=== PATIENT | female | born 1965 | race Caucasian/White ===

== ENCOUNTER 2024-01-06 16:59 | Emergency (ER) | payer BC, SELFPAY ==
[2024-01-06 17:02] VITALS: BP 143/61; PULSE 71; RESP 18; TEMP 36.8; O2SAT 97; BMI 32.0
--- NOTE | 2024-01-06 17:14 | EDS_ITS ---
HPI <PURNIMA Munson - Last Filed: 01/06/24 17:41> History of Present Illness Chief Complaint: Laceration Narrative Narrative: Patient is a 58-year-old female with no significant history presents to the emerged part with a laceration to the left knee. Patient that she was in taking a shower when a glass soap dish broke striking her top of the left knee. This does need sutures however patient has full range of motion, she has no significant pain. Tetanus vaccination is unknown. Denies any other injury. PFSH <PURNIMA Munson - Last Filed: 01/06/24 17:41> [facility] Home Medications ?Medication ?Instructions ?Recorded ?Last Taken ?Type penicillin V potassium 250 mg 500 mg (2 x 250 mg) PO 4X/DAY #40 06/21/17 Unknown Rx tablet tabs Allergy/AdvReac Type Severity Reaction Status Date / Time fluoxetine (From Prozac) Allergy Abd Verified 01/06/24 17:00 cramps/diarrhea Social History Smoking Status: Current every day smoker tobacco type: cigarettes ROS <PURNIMA Munson - Last Filed: 01/06/24 17:41> ROS ED ROS Narrative Constitutional: Negative for fever, chills, weight loss, weakness Eyes: Negative for vision loss, vision change, double vision ENT: Negative for any sore throat, ear pain, congestion Cardiovascular: Negative for any chest pain, tightness, palpitations Respiratory: Negative for any cough, sputum production, hemoptysis, dyspnea, dyspnea on exertion, orthopnea Gastrointestinal: Negative for any abdominal pain, nausea, vomiting, diarrhea, constipation, blood in stool, blood in vomit : Negative for any urinary frequency, dysuria, retention, blood in urine Muscle skeletal: Negative for any neck pain, back pain Neurological: Negative for any headache, syncope, dizziness Skin: Negative for any rashes, itching, abrasions. Positive laceration left knee Psychiatric: Negative for any depression, anxiety, stress, suicidal ideation, homicidal ideation Hematologic: Negative for any excessive bruising, easy bleeding EXAM <PURNIMA Munson - Last Filed: 01/06/24 17:41> Physical Exam Narrative Exam Narrative: Vital signs reviewed. HEET: Head normocephalic atraumatic, TMs clear bilaterally. Posterior pharynx is clear, moist mucous membranes. Nares clear bilaterally. Neck: Supple with no lymphadenopathy or tenderness. No signs of meningismus. Cardiac: Regular rate and rhythm no murmurs gallops or rubs, equal peripheral pulses bilaterally. Respiratory: Lungs clear to auscultation bilaterally. No chest tenderness. Abdomen: Soft, nontender, nondistended. No abdominal bruit or pulsatile masses. No hepatosplenomegaly Extremities: No peripheral edema, no signs of gross trauma or deformity. Active full range of motion of all extremities. Patient has a 2 cm vertical laceration just above the patella. Patient has full range of motion, intact extensor mechanism. No foreign body noted. This is full-thickness however there is no tendon involvement. No muscle fascia involvement. Neuro: Cranial nerves II through XII intact, no focal neurological deficits. Skin: Clean dry and intact with no rash, purpura, petechiae, vesicles or pustules. Backs/flank: No CVA tenderness, no midline spinal tenderness, no deformity. Psych: Normal mood and affect. No SI, HI or acute psychosis. Const Vital Signs: 01/06/24 17:02 01/06/24 17:47 Temperature 98.2 F 97.6 F L Temperature Source Temporal Pulse Rate 71 78 Respiratory Rate 18 16 Blood Pressure 143/61 H Blood Pressure Mean 88 Pulse Ox 97 99 Oxygen Delivery Method Room Air <Dr. Irving Sampson MD - Last Filed: 01/06/24 20:22> Physical Exam Const Vital Signs: 01/06/24 17:02 01/06/24 17:47 Temperature 98.2 F 97.6 F L Temperature Source Temporal Pulse Rate 71 78 Respiratory Rate 18 16 Blood Pressure 143/61 H Blood Pressure Mean 88 Pulse Ox 97 99 Oxygen Delivery Method Room Air [facility] <PURNIMA Munson - Last Filed: 01/06/24 17:41> [facility] Treatment and Re-Evaluation :: Differential diagnosis includes however is not limited to: Simple laceration, tendon involvement, foreign body Patient appears to be in no obvious distress vital signs are stable. Patient presents the emergency department with a laceration to left knee. This is r oughly 2 cm in length. This will be irrigated, this will need closure with sutures. Tetanus vaccination was updated. I was able to anesthetize the area with lidocaine with epinephrine. Patient wound irrigated with 100 cc normal saline. Also placed 5 simple sutures of 4-0 Ethilon. Patient tolerated well, edges approximate nicely, sterile gloves, sterile drapes were used. She will have the removed in 10 days. She will follow-up outpatient. She was given return precautions. All questions answered stable for discharge <Dr. Irving Sampson MD - Last Filed: 01/06/24 20:22> [facility] MDM Narrative Medical decision making narrative: I have personally performed a face to face assessment of the patient and have reviewed the FAWAD Note. I performed a substantive portion of the visit including all aspects of the following. My campos findings include: History is remarkable for laceration above the left patella. This occurred in the shower when the soap dish broke. She denies paresthesia, anesthesia medics. Exam is gaping 1 to 1.5 cm laceration above the patella. The quadricep mechanism intact. No neurovasc compromise. Medical Decision Making patient will require sutures. Sutures placed. Nurse practitioner. Other additions or changes: [None] Discharge Plan Triage Chief Complaint: Laceration ED Midlevel Provider: Karl Ortega ED Provider: Irving Sampson Dx/Rx/DC Orders Clinical Impression: Laceration of leg Instructions: ED Laceration Extremity Prescriptions: No Action penicillin V potassium 250 MG tablet 500 mg PO 4X/DAY Qty: 40 0RF Primary Care Provider: Rico Lemus Referrals: NOT,DEFINED [Non-Staff] - Activity Restrictions/Additional Instructions: Please follow-up outpatient. Have the sutures removed in 10 days Print Language: Marshallese Disposition Disposition: Home, Self Care Discharge Date/Time: 01/06/24 17:48
[2024-01-06] MEDS: Lidocaine 1% /Epi 1:100 (20ml) 20 ML Vial 3 ML INFILT (17:28)
[2024-01-06] MEDS: Diphth,Pertuss(Acell),Tet Vac 0.5 ML Vial IM (17:29)
[2024-01-06 17:47] VITALS: PULSE 78; RESP 16; TEMP 36.4; O2SAT 99
== END 2024-01-06 17:48 | disposition home or self-care (01) ==
PROVIDERS: Emergency Provider Emergency Medicine; PCP Family Medicine; Visit Provider Emergency Medicine
DX: S81.012A Laceration without foreign body, left knee, initial encounter (principal); W25.XXXA Contact with sharp glass, initial encounter; Y93.E1 Activity, personal bathing and showering; Y99.8 Other external cause status; F17.210 Nicotine dependence, cigarettes, uncomplicated; Z23 Encounter for immunization
CPT/HCPCS: 12001; 90471; 90715; 99283

== ENCOUNTER 2024-04-16 12:22 | Inpatient (IN) | payer BC, SELFPAY ==
[2024-04-16] VITALS (11 sets, daily range): BP systolic 127–187; BP diastolic 75–124; PULSE 81–90; RESP 14–28; TEMP 36.6–38.2; O2SAT 90–97; BMI 31.2; BMI 30.7
--- NOTE | 2024-04-16 12:33 | CT_ITS ---
STUDY: CT ABDOMEN AND PELVIS WITH CONTRAST REASON FOR EXAM: Female, 58 years old. RUQ pain RADIATION DOSAGE (If Supplied By Facility): CTDIvol = ( 18.01 ) mGy, DLP = ( 1596.91 ) mGycm TECHNIQUE: IV 100mL Isovue-370 was administered. Transaxial images were obtained from the dome of the diaphragm to the symphysis pubis. Multiplanar coronal and sagittal images were reformatted. The protocol utilizes one or more of the following dose reduction techniques: automated exposure control, adjustment of mA and/or kV according to patient size,and/or use of iterative reconstruction technique. COMPARISON: No relevant prior comparison study available FINDINGS: The visualized lung bases are essentially unremarkable. The visualized portions of the heart are within normal limits. Coronary calcifications. Multiple low-density lesions in the liver likely representing cysts, the largest measures about 1.5 cm in the right lobe. Normal gallbladder and extrahepatic biliary system. Normal spleen. Normal pancreas. Large 4 cm mass in the right adrenal gland. Smaller mass in the left adrenal gland measuring about 2 cm. Left renal parapelvic cyst. Another smaller cyst in the left kidney measuring about 9 mm. No evidence of hydronephrosis. Normal visualized stomach. 2.5 cm fatty lesion in the second stage of the duodenum could represent polyp or lipoma. No evidence of small bowel obstruction. Fecal retention. No evidence of acute diverticulitis. The appendix is visualized and appears normal. There is diffuse atherosclerotic calcification of the abdominal aorta, without a demonstrated aneurysm. No retroperitoneal adenopathy. Normal urinary bladder. No pelvic mass. Normal abdominal wall. Mild degenerative changes of the spine. CT/Abdomen/Pelvis W IV Cont ONLY IMPRESSION: 1. Bilateral adrenal masses markedly larger on the right side for which correlation with nonemergent MRI with contrast or CT scan with adrenal protocol. 2. Endoluminal fatty polypoid lesion in the descending duodenum without evidence of obstruction at this time. GI consult is recommended. 3. Liver cysts. 4. Otherwise no focal acute inflammatory process. Electronically Signed: Corky Johnson MD at 13:46 EDT ,
--- NOTE | 2024-04-16 12:33 | CT_ITS ---
STUDY: CTA CHEST REASON FOR EXAM: Female, 58 years old. Hurts to take deep breath on right RADIATION DOSAGE (If Supplied By Facility): CTDIvol = ( 18.01 ) mGy, DLP = ( 1596.91 ) mGycm TECHNIQUE: The examination was performed with the intravenous administration of IV 100mL Isovue-370. Post-processing of the angiographic images was performed, with multiplanar reformation and 3D reconstruction. The protocol utilizes one or more of the following dose reduction techniques: automated exposure control, adjustment of mA and/or kV according to patient size,and/or use of iterative reconstruction technique. COMPARISON: No relevant prior comparison study available FINDINGS: Normal enhancement of the main pulmonary artery and right and left pulmonary arteries. Normal enhancement of the bilateral peripheral pulmonary arteries. There is no demonstrated pulmonary embolism. Severe motion artifacts in the upper chest obscuring the thoracic inlet and aortic arch. There is no demonstrated aortic dissection. Normal heart and pericardium. There are calcifications of the coronary arteries. Normal mediastinum. Normal hilar regions. Normal visualized trachea and bronchi. The lungs are well expanded. There are no pulmonary infiltrates. Severe motion artifacts during evaluation of the upper chest. There are no pleural effusions. Normal chest wall structures. No demonstrated acute osseous changes. The visualized portions of the upper abdomen demonstrate small liver lesions likely representing small cysts. CT/CTA Chest W/WO Contrast IMPRESSION: 1. No evidence of pulmonary embolism. 2. No focal acute pulmonary infiltrate or pleural effusions. Electronically Signed: Corky Johnson MD at 13:36 EDT ,
--- NOTE | 2024-04-16 12:33 | EKG12_ITS ---
Test Reason : LEFT SIDE PAIN Blood Pressure : / mmHG Vent. Rate : 087 BPM Atrial Rate : 087 BPM P-R Int : 154 ms QRS Dur : 092 ms QT Int : 366 ms P-R-T Axes : 019 072 044 degrees QTc Int : 440 ms Normal sinus rhythm Normal ECG Confirmed by BRITTNI CANTRELL, [facility] ([id number]), commercial production editor EDMUND VALVERDE ([id number]) on 04/17/2024 1:21:28 PM Referred By: NIKITA Confirmed By:SINAI ELKINS MD
--- NOTE | 2024-04-16 12:37 | EX.ED.DYSGE1 ---
HPI History of Present Illness Chief Complaint: Abd Pain Narrative Narrative: Patient is a 58-year-old female past medical history hypertension, hypercholesteremia who presents to the emergency department with chief complaint of right side pain and hurting when she attempts take a deep breath. Patient states that this morning she woke up not feeling well and noted that her pain progressively worsened while she was at work today prompting her to come here for further evaluation management. Patient denies any history of blood clots in her legs or lungs denies any recent travel history. Patient states that she does smoke daily and occasional marijuana use denies any other drug use and denies alcohol use. Patient denies any recent sick contacts. [facility] Medical History (Updated 04/16/24 @ 13:22 by Radha Howard) Depression Hypertension Home Medications ?Medication ?Instructions ?Recorded ?Last Taken ?Type atorvastatin 80 mg tablet 80 mg PO QHS cholesterol 04/16/24 Unknown History bupropion HCl 150 mg tablet,12 hr 150 mg PO BID 04/16/24 Unknown History sustained-release lisinopril 10 1 tab PO DAILY 04/16/24 Unknown History mg-hydrochlorothiazide 12.5 mg tablet sertraline 100 mg tablet 100 mg PO DAILY 04/16/24 Unknown History Allergy/AdvReac Type Severity Reaction Status Date / Time fluoxetine (From Resource [employer]) Allergy Abd Verified 01/06/24 17:00 cramps/diarrhea Social History Smoking Status: Current every day smoker tobacco type: cigarettes ROS ROS ED ROS Narrative Constitutional: Complains of a chills, diffuse bodyaches, denies fevers, lightheadedness, dizziness Eyes: Denies change in vision double vision blurry vision Cardiovascular: Complains of some right-sided chest discomfort near her rib region denies palpitations Respiratory: Complains of some shortness of breath Abdomen: Complains of abdominal pain in the right upper region as noted above rates this a 6 out of 10. : Denies any pain phonation, hematuria compel area Neurological: Denies numbness, weakness, tingling Musculoskeletal: Denies any back pain Skin: Denies rashes, lesions EXAM Physical Exam Narrative Exam Narrative: General: Patient lying in bed rest comfortably did not appear to be acute distress Head: Atraumatic, normocephalic Eyes: PERRL bilateral, EOMI bilateral, no conjunctival injection noted Neck: Soft, supple, trachea midline Cardiovascular: Regular rate and rhythm no murmurs gallops rubs noted Respiratory: Clear to auscultation bilaterally no rales rhonchi wheeze noted Abdomen: Soft, nondistended, n tender to palpation of the right upper quadrant no rebound or guarding noted, bowel sounds present x 4 Extremities: +5/5 strength noted in the bilateral upper and lower extremities, no pedal edema noted exam, radial pulses +2/4 in the bilateral upper extremities, no pedal edema noted exam Neurological: Patient following commands knew that she was at [facility] years 2023 Skin: Warm, dry, intact Const Vital Signs: 04/16/24 12:23 04/16/24 14:23 04/16/24 15:54 Temperature 98 F 100.8 F H Temperature Source Temporal Oral Pulse Rate 86 90 86 Respiratory Rate 14 23 H 28 H Blood Pressure 187/93 H 165/124 H 159/76 H Blood Pressure Mean 124 137 103 Pulse Ox 97 91 90 Oxygen Delivery Method Room Air Room Air Room Air Oxygen Flow Rate (L/min) 04/16/24 16:35 04/16/24 17:00 04/16/24 17:35 Temperature 100.8 F H 100.3 F H Temperature Source Oral Oral Pulse Rate 87 86 86 Respiratory Rate 25 H 28 H 26 H Blood Pressure 166/75 H 161/82 H 161/82 H Blood Pressure Mean 105 108 108 Pulse Ox 90 95 97 Oxygen Delivery Method Room Air Nasal Cannula Nasal Cannula Oxygen Flow Rate (L/min) 2 2 MDM MDM MDM Narrative Medical decision making narrative: Patient is a 58-year-old female who presents to the emergency department the chief complaint of pain with deep inspiration, right upper quadrant pain and diffuse bodyaches. Patient will have a workup performed here on the differential diagnose includes but not limited to cholecystitis, COVID, upper respiratory affection second viral etiology, ACS, pneumothorax, PE. Once workup is obtained reviewed she will be reevaluated. Patient CBC was reviewed was significant for leukocytosis of 13,000, hemoglobin was 14.9, plate count normal at 236. Patient sodium was noted be 131, potassium normal at 3.5, creatinine was 0.53. Patient's BNP elevated 134, troponin normal at 5. Patient's EKG was reviewed and independently interpreted by myself which showed sinus rhythm with a rate of 87 bpm. Patient's urinalysis did not reveal any evidence of infection. Patient CT chest did not show any evidence of PE no focal acute pulmonary infiltrate or pleural effusions. Patient's CT abdomen pelvis showed bilateral adrenal masses markedly large on the right side for which correlation and nonemergent MRI or CT contrast of the adrenal gland protocol. Endo luminal fatty polypoid lesion of the descending duodenum without evidence of obstruction recommended GI consultation. Liver cyst noted. Did discuss results with the patient and gave her hard copy of this. Patient was ambulated here in the emergency department and her oxygen dropped to 85% she is not on oxygen normally she felt short of breath. Patient is febrile as well she was given a gram of Tylenol. At this point time do believe the patient will warrant admission we will discuss case with hospitalist. Did discuss case with hospitalist Dr. Bell who states that he will accept patient for admission. He came down evaluated the patient at bedside reviewed the CT scan and discussed the case with Dr. Howard and they are concerned that there may be an ulcer with clot versus perforation they were requesting radiology review read this CAT scan. Given there is a concern for this possible perforation ulcer and she was febrile did give her a dose of Zosyn here in the emergency department. On repeat exam she still is having significant tenderness in the right upper quadrant. Patient's CT abdomen pelvis was read once again as no definitive evidence of duodenal perforation there is a large intramural mass within the descending portion of the duodenum demonstrating Hounsfield numbers consistent with fat. Did call [facility] no beds available. Patient's next preference is going to [facility] which they were paged. This patient's case will be signed out to oncoming provider to make ultimate disposition. See his notes for further details. I did call and touch base back with hospitalist as there was no concern for perforation on the addendum read asking if they would accept the patient for admission here and they state that gastroenterology is still recommending transfer therefore they will not accept admission here. Lab Data Labs: Laboratory Results - last 24 hr 04/16/24 04/16/24 12:40 13:20 WBC 13.5 H RBC 4.82 Hgb 14.9 Hct 43.6 MCV 90.5 MCH 30.9 MCHC 34.2 RDW Std Deviation 42.8 RDW Coeff of [place] 13.0 Plt Count 236 MPV 9.9 Immature Gran % (Auto) 0.400 Neut % (Auto) 85.6 H Lymph % (Auto) 8.5 L [place] % (Auto) 5.1 Eos % (Auto) 0.1 Baso % (Auto) 0.3 Absolute Neuts (auto) 11.5 H Absolute Lymphs (auto) 1.15 Nucleated RBC % 0 Sodium 131 L Potassium 3.5 Chloride 96 L Carbon Dioxide 27.0 Anion Gap 8 BUN 17 Creatinine 0.53 L Estim Creat Clear Calc 115.87 Est GFR (MDRD) Af Amer 151 Est GFR (MDRD) Non-Af 125 BUN/Creatinine Ratio 31.8 H Glucose 129 H Calcium 10.1 Total Bilirubin 0.60 AST 22 ALT 19 Alkaline Phosphatase 100 Troponin I High Sens 5 B-Natriuretic Peptide 134.7 H Total Protein 7.9 Albumin 3.9 Globulin 4.0 Albumin/Globulin Ratio 1.0 Lipase 30 Urine Color Straw Urine Clarity Clear Urine pH 7.0 Ur Specific [place] 1.010 Urine Protein Negative Urine Glucose (UA) Normal Urine Ketones 15 H Urine Occult Blood 25 H Urine Nitrite Negative Urine Bilirubin Negative Urine Urobilinogen Normal Ur Leukocyte Esterase 100 H Urine RBC 0 SEEN Urine WBC 0-5 SEEN Ur Squamous Epith Cells 0 SEEN Urine Bacteria 0 SEEN Urine Mucus 0 SEEN Radiography Diagnostic Testing: Clinical Impression(s) from Imaging Studies Abdomen/Pelvis CT 04/16/24 12:33 IMPRESSION: 1. Bilateral adrenal masses markedly larger on the right side for which correlation with nonemergent MRI with contrast or CT scan with adrenal protocol. 2. Endoluminal fatty polypoid lesion in the descending duodenum without evidence of obstruction at this time. GI consult is recommended. 3. Liver cysts. 4. Otherwise no focal acute inflammatory process. Electronically Signed: Corky Johnson MD at 13:46 EDT , ADDENDUM: 04/16/24 [id number] IMPRESSION: undefined Chest CTA 04/16/24 12:33 IMPRESSION: 1. No evidence of pulmonary embolism. 2. No focal acute pulmonary infiltrate or pleural effusions. Electronically Signed: Corky Johnson MD at 13:36 EDT , Discharge Plan Triage Chief Complaint: Abd Pain Other Complaint: Back ED Provider: Bethel Butterfield Dx/Rx/DC Orders Prescriptions: No Action bupropion HCl 150 mg tablet sustained-release 12 hr 150 mg PO BID atorvastatin 80 mg tablet 80 mg PO QHS sertraline 100 mg tablet 100 mg PO DAILY lisinopril-hydrochlorothiazide 10-12.5 mg tablet 1 tab PO DAILY Primary Care Provider: Rico Lemus Referrals: Rico Lemus MD [Primary Care Provider] - Print Language: Fijian
[2024-04-16] MEDS: Ondansetron 4 MG/2 ML Vial IV ×2 (12:45→21:24)
[2024-04-16] MEDS: Morphine 4 MG/ML Syringe IV (12:45)
[2024-04-16] MEDS: 0.9% Normal Saline (1000mL) 1,000 ML 999 ML IV (12:45)
[2024-04-16 12:50] LABS: Absolute Lymphocyte Count 1.15 X10^3/uL (0.83-4.51); Absolute Neutrophil Count 11.5 X10^3/uL (2.0-7.7); Basophil# 0.04 X10^3/uL; Basophil% 0.3 % (0-1); Eosinophil# 0.01 X10^3/uL; Eosinophils% 0.1 % (0-5); Hematocrit 43.6 % (37-47); Hemoglobin 14.9 g/dL (12.0-15.0); Lymphocyte # 1.15 X10^3/ul (0.83-4.51); Lymphocyte % 8.5 % (19-41); Mean Corp Hgb Conc 34.2 g/dL (32-36); Mean Corpuscular Hgb 30.9 pg (27.0-32.0); Mean Corpuscular Volume 90.5 fL (81-99); Mean Platelet Vol. 9.9 fl (6.2-12.0); Monocyte# 0.69 X10^3/uL; Monocyte% 5.1 % (0-10); NRBC Flagged by Analyzer 0 % (0-5); Neutrophil # 11.53 X10^3/uL (2.7-7.7); Neutrophil % 85.6 % (47-70); Platelet Count 236 K/mm3 (150-450); RBC Distribution Width SD 42.8 fl (35.1-43.9); Red Blood Count 4.82 M/mm3 (4.2-5.4); White Blood Count 13.5 K/mm3 (4.4-11.0)
[2024-04-16 13:08] LABS: BNP,B-Type NATRIURETIC PEPTIDE 134.7 pg/mL (0-100)
--- NOTE | 2024-04-16 13:08 | NURSING ---
NO OLD EKGS
[2024-04-16 13:12] LABS: AST(SGOT) 22 U/L (15-37); Alanine Aminotransfer ALT/SGPT 19 U/L (13-56); Albumin, Serum 3.9 g/dL (3.2-5.0); Alkaline Phosphatase 100 U/L (45-117); Anion Gap 8 (5-15); BUN 17 mg/dL (7-18); BUN/Creat Ratio 31.8 RATIO (10-20); Calcium,Total 10.1 mg/dL (8.5-10.1); Chloride 96 mmol/L (98-107); Creatinine, Serum 0.53 mg/dL (0.55-1.02); EST Glomerular Filtration Rate 125 mL/min (>60); Est Glom Filt Rate - Afr Amer 151 mL/min (>60); Estimated Creatinine Clearance 115.87 ml/min; Glucose 129 mg/dL (74-106); Lipase 30 U/L (13-75); Potassium 3.5 mmol/L (3.5-5.1); Protein, Total 7.9 g/dL (6.4-8.2); Sodium Level 131 mmol/L (136-145); Troponin-I HS 5 pg/mL (3.0-54.0)
[2024-04-16 13:24] LABS: Bacteria 0 SEEN /hpf (None Seen); Mucous, Urine 0 SEEN /hpf (<or=2+); Red Blood Cells-Urine 0 SEEN /hpf (0-5); Squamous Epithelial Cells - UA 0 SEEN /hpf (5-10)
[2024-04-16 13:37] LABS: Color, Urine Straw (Yellow); Glucose, Dipstick Normal (Normal); Ketone-Dipstick 15 mg/dl (Negative); Leukocyte Esterase-Dipstick 100 /ul (Negative); Nitrite-Dipstick Negative (Negative); Occult Blood-Urine 25 /ul (Negative); Protein-Dipstick Negative (Negative); Urine Bilirubin Dipstick Negative (Negative); Urine Clarity Clear (Clear); Urine Urobilinogen Normal (Normal)
[2024-04-16 13:47] LABS: White Blood Cells 0-5 SEEN /hpf (0-5)
[2024-04-16] MEDS: Acetaminophen 500 MG Tablet 1000 MG PO (16:22)
[2024-04-16] MEDS: Piperacil/Tazobactam 3.375 GM in 0.9% Normal Saline (50mL MB+) 50 ML IV ×2 (17:04→22:27)
--- NOTE | 2024-04-16 18:34 | US_ITS ---
STUDY: ABDOMINAL ULTRASOUND - RIGHT UPPER QUADRANT REASON FOR VISIT: Female, 58 years old pain, nausea, fever TECHNIQUE: Ultrasound evaluation of the right upper quadrant was performed with real-time and static lewis-scale imaging. TECHNICAL QUALITY: Adequate. COMPARISON: CT of the abdomen April 16, 2024 FINDINGS: Liver: The liver measures 14.5 cm. There is normal echogenicity of the liver. The bile ducts are within normal limits. There is hepatic color flow. The direction of portal flow is hepatopetal. There are multiple small cysts the largest measuring approximately 1.4 cm Gallbladder: Normal distended gallbladder. The gallbladder wall measures 2 mm. There is a negative sonographic Gonzales''s sign. There is no pericholecystic fluid. There are no gallstones. Common Bile Duct (C.B.D.): The common bile duct measures 7 mm. Pancreas: Nonvisualized due to bowel gas producing artifact. Right Kidney: Normal size of the right kidney. The right kidney measures 10.8 x 5.4 x 5.9 cm. Normal renal cortex. The right cortex measures 1.8 cm. There is no demonstrated renal mass or cyst. There is no right hydronephrosis. US/Gallbladder IMPRESSION: Multiple small hepatic cysts. No evidence for gallstones or acute cholecystitis Electronically Signed: Erwin Osborn MD at 19:46 EDT ,
--- NOTE | 2024-04-16 19:01 | PCM.HP.STD ---
[facility] - General General Date of Admission: 04/16/24 Date of Service: 04/16/24 Chief Complaint: Abdominal Pain and Fever. HPI Narrative CARRILLO LEON, is a 58 F with a past medical history of essential hypertension, hyperlipidemia, obesity; with BMI of 31.2 this admission, tobacco abuse, cannabis abuse, depression, history of tubal ligation and OA; with back pain due to injury who presents to [facility] ER complaining of abdominal pain and fever. Ms. Leon reports her symptoms began earlier this morning when she woke up not feeling well and noted that her pain worsened while she was at work so she decided to come in for further evaluation and treatment. She primarily complains of abdominal pain that is focused in her RUQ, ~6/10 and was made worse by taking a deep breath. She also admits to facial flushing, nausea, chills, SOB and feeling like something is stuck in her intestines that she cannot mobilize. She denies a personal or family history of cancer or nonmalignant lipomatous masses and she states she has never underwent an upper or lower endoscopy. There is no report of weight loss, blood in stools or similar previous episodes. I also spoke to her who was present at the bedside and answered his questions to the best of my ability. In the ER she was noted to have a CT scan of the abdomen and pelvis that revealed an Endoluminal Fatty Polypoid Lesion in the descending Duodenum without evidence of obstruction but with appearance of air in bowel wall worrisome for evolving Pneumatosis with Fever up to 100.8 degrees Fahrenheit and Leukocytosis of 13.5K present on admission with additional CT evidence of Bilateral Adrenal Masses markedly larger on the Right with Numerous Liver Cysts complicated by laboratory evidence of Dehydration with BUN/creatinine ratio 31.8 present on admission in the setting of ongoing Tobacco Abuse and she was then admitted to the general medical floor for ongoing care for a stay that is expected to extend beyond 2 midnights. [facility] Medical History Bleeding tendency Post-menopausal Back pain due to injury High cholesterol Smoker Depression Hypertension Home Medications ?Medication ?Instructions ?Recorded ?Last Taken ?Type atorvastatin 80 mg tablet 80 mg PO QHS cholesterol 04/16/24 Unknown History bupropion HCl 150 mg tablet,12 hr 150 mg PO BID 04/16/24 Unknown History sustained-release lisinopril 10 1 tab PO DAILY 04/16/24 Unknown History mg-hydrochlorothiazide 12.5 mg tablet sertraline 100 mg tablet 100 mg PO DAILY 04/16/24 Unknown History Allergy/AdvReac Type Severity Reaction Status Date / Time fluoxetine (From [employer]) Allergy Abd Verified 01/06/24 17:00 cramps/diarrhea Surgical History S/P tubal ligation Social History Smoking Status: Current every day smoker tobacco type: cigarettes ROS ROS Narrative Review of Systems: Constitutional: Patient admits to fever but denies chills. Eyes: Patient denies changes in vision or discharge from eyes. ENT: Patient denies runny nose, sore throat or ear pain. Resp: Patient admits to pleuritic Right-sided chest pain made worse with raking a deep breath. CV: Patient admits to chest pain with deep breathing but denies palpitations or heart racing. GI: Patient admits to ~6/10 RUQ abdominal pain with a feeling something is lodged in her bowel that she cannot mobilize as per HPI. : Patient denies dysuria, hematuria or urinary frequency/urgency. MSK: Patient denies arthralgias or myalgias. Skin: Patient admits to facial redness and flushing but she denies abscess or jaundice. Psych: Patient denies symptoms of uncontrolled depression or anxiety. Neuro: Patient denies headache, paresthesias or focal neurologic weakness. Allergy: Patient denies lip swelling, tongue swelling or urticaria. Hematology: Patient denies easy bleeding or easy bruisability. Endocrinology: Patient denies polyuria, polydipsia or polyphagia. 14 point ROS otherwise negative except positives noted above in HPI. Vital Signs Vital Signs Vital Signs: 04/16/24 12:23 04/16/24 14:23 04/16/24 15:54 Temperature 98 F 100.8 F H Temperature Source Temporal Oral Pulse Rate 86 90 86 Respiratory Rate 14 23 H 28 H Blood Pressure 187/93 H 165/124 H 159/76 H Blood Pressure Mean 124 137 103 Pulse Ox 97 91 90 Oxygen Delivery Method Room Air Room Air Room Air Oxygen Flow Rate (L/min) 04/16/24 16:35 04/16/24 17:00 04/16/24 17:35 Temperature 100.8 F H 100.3 F H Temperature Source Oral Oral Pulse Rate 87 86 86 Respiratory Rate 25 H 28 H 26 H Blood Pressure 166/75 H 161/82 H 161/82 H Blood Pressure Mean 105 108 108 Pulse Ox 90 95 97 Oxygen Delivery Method Room Air Nasal Cannula Nasal Cannula Oxygen Flow Rate (L/min) 2 2 04/16/24 18:40 Temperature 99.1 F Temperature Source Oral Pulse Rate 84 Respiratory Rate 24 H Blood Pressure 168/85 H Blood Pressure Mean 112 Pulse Ox 97 Oxygen Delivery Method Nasal Cannula Oxygen Flow Rate (L/min) 2 Weight Weight: 176 lb 5.917 oz Body Mass Index (BMI) 31.2 Physical Exam Const alert and oriented x3 Constitutional Narrative: Mild distress noted with patient obese and appearing older than her stated age. General Appearance: cooperative HEENT normocephalic, head/scalp atraumatic and hearing grossly normal bilaterally HEENT Narrative: Mucous membranes dry. Eyes PERRL and EOMs intact bilaterally Neck no lymphadenopathy and supple Resp normal respiratory effort, no retractions, no use of accessory muscles and clear to auscultation bilaterally Cardio regular rate and regular rhythm GI normal to inspection, nondistended, normoactive bowel sounds, soft to palpation and non-distended GI Narrative: RUQ TTP. Extremity normal to inspection, full ROM and no clubbing, cyanosis or edema Skin Skin Narrative: Patient has evidence of facial redness and flushing. She has no evidence of wounds, abscess or jaundice. Neuro oriented x3, CN's II-XII intact bilaterally, moves all extremities and no focal motor deficits Sensorium / Orientation: awake, alert, oriented to person, oriented to place and oriented to time Speech: speech normal Psych Mood & Affect: anxious Results Medical Records Data Attestation: I reviewed the patient's medical records Lab / Micro Data Attestation: I reviewed the patient's lab results. 04/16/24 12:40 04/16/24 12:40 Labs: Laboratory Results - last 24 hr 04/16/24 12:40: WBC 13.5 H, RBC 4.82, Hgb 14.9, Hct 43.6, MCV 90.5, MCH 30.9, MCHC 34.2, RDW Std Deviation 42.8, RDW Coeff of [place] 13.0, Plt Count 236, MPV 9.9, Immature Gran % (Auto) 0.400, Neut % (Auto) 85.6 H, Lymph % (Auto) 8.5 L, [place] % (Auto) 5.1, Eos % (Auto) 0.1, Baso % (Auto) 0.3, Absolute Neuts (auto) 11.5 H, Absolute Lymphs (auto) 1.15, Nucleated RBC % 0, Sodium 131 L, Potassium 3.5, Chloride 96 L, Carbon Dioxide 27.0, Anion Gap 8, BUN 17, Creatinine 0.53 L, Estim Creat Clear Calc 115.87, Est GFR (MDRD) Af Amer 151, Est GFR (MDRD) Non-Af 125, BUN/Creatinine Ratio 31.8 H, Glucose 129 H, Calcium 10.1, Total Bilirubin 0.60, AST 22, ALT 19, Alkaline Phosphatase 100, Troponin I High Sens 5, B-Natriuretic Peptide 134.7 H, Total Protein 7.9, Albumin 3.9, Globulin 4.0, Albumin/Globulin Ratio 1.0, Lipase 30 04/16/24 13:20: Urine Color Straw, Urine Clarity Clear, Urine pH 7.0, Ur Specific [place] 1.010, Urine Protein Negative, Urine Glucose (UA) Normal, Urine Ketones 15 H, Urine Occult Blood 25 H, Urine Nitrite Negative, Urine Bilirubin Negative, Urine Urobilinogen Normal, Ur Leukocyte Esterase 100 H, Urine RBC 0 SEEN, Urine WBC 0-5 SEEN, Ur Squamous Epith Cells 0 SEEN, Urine Bacteria 0 SEEN, Urine Mucus 0 SEEN Micro: Microbiology 04/16/24 12:41 Mucosa - Nose SARS-CoV-2, Influenza & RSV (PCR) - Final Imaging Radiology Impression Abdomen/Pelvis CT 04/16/24 12:33 IMPRESSION: 1. Bilateral adrenal masses markedly larger on the right side for which correlation with nonemergent MRI with contrast or CT scan with adrenal protocol. 2. Endoluminal fatty polypoid lesion in the descending duodenum without evidence of obstruction at this time. GI consult is recommended. 3. Liver cysts. 4. Otherwise no focal acute inflammatory process. Electronically Signed: Corky Johnson MD at 13:46 EDT , ADDENDUM: 04/16/24 1735 IMPRESSION: undefined Chest CTA 04/16/24 12:33 IMPRESSION: 1. No evidence of pulmonary embolism. 2. No focal acute pulmonary infiltrate or pleural effusions. Electronically Signed: Corky Johnson MD at 13:36 EDT , [facility] Imaging Services [address] [place] [address] [id number] Gallbladder MR#: [id number] Acct: [id number] Name: CARRILLO LEON Rep #: [id number] : 1965 F 58 From: Erwin Osborn MD PCP: Dr. Rico Lemus MD Status: [facility] ER Study: Gallbladder Date of Exam: 04/16/24 Exam# [id number] Ordering Dr: Alex Dial MD STUDY: ABDOMINAL ULTRASOUND - RIGHT UPPER QUADRANT REASON FOR VISIT: Female, 58 years old pain, nausea, fever TECHNIQUE: Ultrasound evaluation of the right upper quadrant was performed with real-time and static lewis-scale imaging. TECHNICAL QUALITY: Adequate. COMPARISON: CT of the abdomen April 16, 2024 FINDINGS: Liver: The liver measures 14.5 cm. There is normal echogenicity of the liver. The bile ducts are within normal limits. There is hepatic color flow. The direction of portal flow is hepatopetal. There are multiple small cysts the largest measuring approximately 1.4 cm Gallbladder: Normal distended gallbladder. The gallbladder wall measures 2 mm. There is a negative sonographic Gonzales''s sign. There is no pericholecystic fluid. There are no gallstones. Common Bile Duct (C.B.D.): The common bile duct measures 7 mm. Pancreas: Nonvisualized due to bowel gas producing artifact. Right Kidney: Normal size of the right kidney. The right kidney measures 10.8 x 5.4 x 5.9 cm. Normal renal cortex. The right cortex measures 1.8 cm. There is no demonstrated renal mass or cyst. There is no right hydronephrosis. US/Gallbladder IMPRESSION: Multiple small hepatic cysts. No evidence for gallstones or acute cholecystitis Electronically Signed: Erwin Osborn MD at 19:46 EDT Reading Location ID and State: [facility] / [place] Tel , Service support , Assessment & Plan Assessment/Plan (1) Duodenal mass: (2) Abdominal pain: QUALIFIERS: Abdominal location: right upper quadrant Qualified Code(s): R10.11 - Right upper quadrant pain (3) Adrenal mass: (4) Leukocytosis: QUALIFIERS: Leukocytosis type: unspecified Qualified Code(s): D72.829 - Elevated white blood cell count, unspecified (5) Tobacco abuse: (6) Obesity (BMI 30.0-34.9): (7) Depression: QUALIFIERS: Depression Type: unspecified Qualified Code(s): F32.A - Depression, unspecified PLAN: Plan 1. Endoluminal Fatty Polypoid Lesion in the descending Duodenum without evidence of obstruction but with appearance of air in bowel wall worrisome for potential evolving Pneumatosis with Fever up to 100.8 degrees Fahrenheit and Leukocytosis of 13.5K present on admission with swing-shift hospitalist initially recommending transfer to tertiary care center for further evaluation and treatment with transfer bed pending at this time - Admit to general medical floor. Continue IV Zosyn and await culture and sensitivity. Give Morphine IV prn for severe (level 6-10/10) pain. Give IV Zofran prn nausea or vomiting. We will consult both gastroenterology and general surgery to see this patient on-rounds in the AM for further recommendations with help appreciated in advance. 2. Bilateral Adrenal Masses markedly larger on the Right with Numerous Liver Cysts complicating #1 - MRI recommended which has been ordered. 3. Dehydration with BUN/creatinine ratio 31.8 present on admission compounding #1 & #2 - Aggressively volume resuscitate and then recheck renal indices in the AM to ensure improvement. 4. Tobacco Abuse raising possible risk of malignancy as underlying cause for #1 & #2 - Tobacco cessation will be strongly encouraged with Nicotine patch offered to control cravings. 5. Obesity; with BMI of 31.2 present this admission adding to the complexity of #1 - #4 - Weight loss will be recommended. Check TSH. 6. Essential Hypertension - Hold oral antihypertensives and give Hydralazine IV prn for systolic blood pressure > 160 mmHg. 7. Depression - Restart home regimen once patient is cleared for oral intake. 8. Cannabis Abuse - Cannabis Cessation will be strongly encouraged. 9. OA; with back pain due to injury - Noted. 10. DVT prophylaxis - SCD's only with possible EGD and/or surgical intervention. Total time: Approximately 75 minutes. Charges/Coding Visit Charges Inpatient E&M: 94525 Init Hosp L3
[2024-04-16] MEDS: Morphine 2 MG/ML Syringe IV (21:16)
[2024-04-16] MEDS: Pantoprazole Sodium 40 MG in 0.9% Normal Saline (100mL MB+) 100 ML 330 MG IV (21:17)
[2024-04-16] MEDS: 0.9% Saline Lock 10 ML Syringe IV (21:24)
[2024-04-16] MEDS: 0.9% Normal Saline (1000mL) 1,000 ML 100 ML IV (22:27)
[2024-04-16] MEDS: 0.9% Normal Saline (250mL Bag) 250 ML 15 ML IV (22:28)
[2024-04-17] VITALS (17 sets, daily range): BP systolic 96–142; BP diastolic 49–76; PULSE 65–75; RESP 16–20; TEMP 36.2–37; O2SAT 75–97; BMI 30.7
[2024-04-17] MEDS: Piperacil/Tazobactam 3.375 GM in 0.9% Normal Saline (50mL MB+) 50 ML IV ×2 (05:38→14:59)
[2024-04-17] MEDS: Ondansetron 4 MG/2 ML Vial IV (05:43)
[2024-04-17] MEDS: 0.9% Saline Lock 10 ML Syringe IV ×2 (05:43→17:27)
[2024-04-17] MEDS: Morphine 2 MG/ML Syringe IV ×3 (05:43→22:38)
[2024-04-17] MEDS: 0.9% Normal Saline (1000mL) 1,000 ML 100 ML IV (05:44)
[2024-04-17 06:55] LABS: Absolute Lymphocyte Count 1.54 X10^3/uL (0.83-4.51); Absolute Neutrophil Count 13.6 X10^3/uL (2.0-7.7); Basophil# 0.03 X10^3/uL; Basophil% 0.2 % (0-1); Hematocrit 39.6 % (37-47); Hemoglobin 13.4 g/dL (12.0-15.0); Lymphocyte # 1.54 X10^3/ul (0.83-4.51); Lymphocyte % 9.7 % (19-41); Mean Corp Hgb Conc 33.8 g/dL (32-36); Mean Corpuscular Hgb 30.9 pg (27.0-32.0); Mean Corpuscular Volume 91.5 fL (81-99); Mean Platelet Vol. 10.1 fl (6.2-12.0); Monocyte# 0.73 X10^3/uL; Monocyte% 4.6 % (0-10); NRBC Flagged by Analyzer 0 % (0-5); Neutrophil # 13.57 X10^3/uL (2.7-7.7); Platelet Count 206 K/mm3 (150-450); RBC Distribution Width CV 13.2 % (11.6-14.6); RBC Distribution Width SD 44.6 fl (35.1-43.9); Red Blood Count 4.33 M/mm3 (4.2-5.4)
[2024-04-17 08:21] LABS: ALB/GLOB Ratio 0.8 RATIO (0.9-2.4); AST(SGOT) 19 U/L (15-37); Alanine Aminotransfer ALT/SGPT 16 U/L (13-56); Alkaline Phosphatase 75 U/L (45-117); Anion Gap 7 (5-15); BUN 10 mg/dL (7-18); BUN/Creat Ratio 18.9 RATIO (10-20); Bilirubin, Direct 0.29 mg/dL (0.00-0.30); Calcium,Total 9.2 mg/dL (8.5-10.1); Chloride 98 mmol/L (98-107); Creatinine, Serum 0.53 mg/dL (0.55-1.02); EST Glomerular Filtration Rate 126 mL/min (>60); Est Glom Filt Rate - Afr Amer 152 mL/min (>60); Estimated Creatinine Clearance 114.96 ml/min; Glucose 122 mg/dL (74-106); Phosphorus 2.4 mg/dL (2.5-4.9); Potassium 3.4 mmol/L (3.5-5.1); Sodium Level 132 mmol/L (136-145)
--- NOTE | 2024-04-17 09:06 | EX.PCM.CON.S ---
Assessment & Plan Assessment/Plan (1) Right upper quadrant abdominal pain: PLAN: I have been consulted in conjunction with Dr. Tavarez. He will independently evaluate this patient. Patient is a 58 y/o F who presented with a 1 day history of RUQ abdominal pain with nausea. CT scan of the ab/pel demonstrated bilateral adrenal masses, right larger than left. Endoluminal fatty polypoid lesion in the descending duodenum without obstruction. RUQ u/s was also obtained demonstrating normal gallbladder with no gallstones or pericholecystic fluid. Negative Gonzales's sign. Patient has never had upper or lower scopes. RUQ u/s in conjunction with patient's symptoms have a lower suspicion that this is gallbladder related. I would recommend evaluation by GI for possible upper scope to evaluate for potential duodenitis, duodenal ulceration and biopsy of the mass located in the duodenum. If the upper scope is essentially unremarkable, a HIDA scan may be obtained to evaluate functionality of the gallbladder. Patient was scheduled to have an MRI of the abdomen today, however this was canceled after discussion between the hospitalist and radiologist. Patient has had the opportunity to ask and have questions answered. Patient verbally understands and agrees with the plan. No surgical intervention is being planned at this point. Thank you for allowing us to participate in this patient's care. HPI Consult Data Date of Consult: 04/17/24 HPI Narrative Reason for Consultation: Right upper quadrant pain HPI Narrative: CARRILLO LEON, is a 58 F who presents with 1 day history of abdominal pain. She notes Monday morning she was at work when the pain started. She stated the pain progressed throughout the day. She went home from work to try to settle the pain. She states the pain was associated with nausea, no vomiting. She denies any fever. She notes the pain continued to worsen which is what brought her into the ED. Patient denies having this pain previously. She denies the pain being associated with food. She notes when she were to take a deep breath it would intensify the pain as well as laying flat. Patient states her pain was a 8-9 out of 10 and is currently a 3. She states she has lost approximately 35 pounds within the last 4 months. She notes this has been intentional through fasting diet. She Notes her stool has been small in size and more dry in character. She denies having previous upper and lower scopes performed. She denies any family history of digestive cancers or inflammatory bowel disease. She has an abdominal surgical history of 3 c-sections with the last being in 2000. She notes a previous laminectomy of L4-5 and eye surgery in the 70's. Patient is a 12-15 cigarettes per day smoker and occasional marijuana use. Patient denies past cardiac or pulmonary history. [facility] Medical History Bleeding tendency Post-menopausal Back pain due to injury High cholesterol Smoker Depression Hypertension Home Medications ?Medication ?Instructions ?Recorded ?Last Taken ?Type atorvastatin 80 mg tablet 80 mg PO QHS cholesterol 04/16/24 Unknown History bupropion HCl 150 mg tablet,12 hr 150 mg PO BID 04/16/24 Unknown History sustained-release lisinopril 10 1 tab PO DAILY 04/16/24 Unknown History mg-hydrochlorothiazide 12.5 mg tablet sertraline 100 mg tablet 100 mg PO DAILY 04/16/24 Unknown History Allergy/AdvReac Type Severity Reaction Status Date / Time fluoxetine (From Prozac) Allergy Abd Verified 01/06/24 17:00 cramps/diarrhea Surgical History S/P tubal ligation Social History Smoking Status: Current every day smoker tobacco type: cigarettes ROS Constitutional Constitutional: Reports systems reviewed and no addt'l complaints, except as documented Eyes Eyes: Reports systems reviewed and no addt'l complaints, except as documented ENT HEENT: Reports systems reviewed and no addt'l complaints, except as documented Cardiovascular Cardiovascular: Reports systems reviewed and no addt'l complaints, except as documented Respiratory/Chest Respiratory/Chest: Reports systems reviewed and no addt'l complaints, except as documented Gastrointestinal Gastrointestinal: Reports systems reviewed and no addt'l complaints, except as documented Genitourinary Genitourinary: Reports systems reviewed and no addt'l complaints, except as documented Musculoskeletal Musculoskeletal: Reports systems reviewed and no addt'l complaints, except as documented Integumentary Integumentary: Reports systems reviewed and no addt'l complaints, except as documented Neurologic Neurologic: Reports systems reviewed and no addt'l complaints, except as documented Psychiatric Psychiatric: Reports systems reviewed and no addt'l complaints, except as documented Endocrine Endocrinology: Reports systems reviewed and no addt'l complaints, except as documented Hematologic/Lymphatic Hematologic/Lymphatic: Reports systems reviewed and no addt'l complaints, except as documented Allergic/Immunologic Allergic/Immunologic: Reports systems reviewed and no addt'l complaints, except as documented Physical Exam Const alert, oriented x3 and no apparent distress HEENT normocephalic and head/scalp atraumatic Eyes PERRL Neck full ROM Lymph Lymphatic: no lymphadenopathy noted Resp normal respiratory effort and clear to auscultation bilaterally Cardio regular rate and regular rhythm GI GI Narrative: Abdomen- soft, slight tenderness in the RUQ. Positive bowel sounds no CVA tenderness Back/Spine no CVA tenderness Extremity normal to inspection Skin no rashes or lesions noted Neuro no focal motor deficits and no sensory deficits noted Psych mental status grossly normal, thought process normal and cooperative Lab / Micro Data 04/17/24 06:11 04/17/24 06:11 Labs: Laboratory Results - last 24 hr 04/16/24 12:40: WBC 13.5 H, RBC 4.82, Hgb 14.9, Hct 43.6, MCV 90.5, MCH 30.9, MCHC 34.2, RDW Std Deviation 42.8, RDW Coeff of [place] 13.0, Plt Count 236, MPV 9.9, Immature Gran % (Auto) 0.400, Neut % (Auto) 85.6 H, Lymph % (Auto) 8.5 L, [place] % (Auto) 5.1, Eos % (Auto) 0.1, Baso % (Auto) 0.3, Absolute Neuts (auto) 11.5 H, Absolute Lymphs (auto) 1.15, Nucleated RBC % 0, Sodium 131 L, Potassium 3.5, Chloride 96 L, Carbon Dioxide 27.0, Anion Gap 8, BUN 17, Creatinine 0.53 L, Estim Creat Clear Calc 115.87, Est GFR (MDRD) Af Amer 151, Est GFR (MDRD) Non-Af 125, BUN/Creatinine Ratio 31.8 H, Glucose 129 H, Calcium 10.1, Total Bilirubin 0.60, AST 22, ALT 19, Alkaline Phosphatase 100, Troponin I High Sens 5, B-Natriuretic Peptide 134.7 H, Total Protein 7.9, Albumin 3.9, Globulin 4.0, Albumin/Globulin Ratio 1.0, Lipase 30 04/16/24 13:20: Urine Color Straw, Urine Clarity Clear, Urine pH 7.0, Ur Specific [place] 1.010, Urine Protein Negative, Urine Glucose (UA) Normal, Urine Ketones 15 H, Urine Occult Blood 25 H, Urine Nitrite Negative, Urine Bilirubin Negative, Urine Urobilinogen Normal, Ur Leukocyte Esterase 100 H, Urine RBC 0 SEEN, Urine WBC 0-5 SEEN, Ur Squamous Epith Cells 0 SEEN, Urine Bacteria 0 SEEN, Urine Mucus 0 SEEN 04/17/24 06:11: WBC 16.0 H, RBC 4.33, Hgb 13.4, Hct 39.6, MCV 91.5, MCH 30.9, MCHC 33.8, RDW Std Deviation 44.6 H, RDW Coeff of [place] 13.2, Plt Count 206, MPV 10.1, Immature Gran % (Auto) 0.500, Neut % (Auto) 85.0 H, Lymph % (Auto) 9.7 L, [place] % (Auto) 4.6, Eos % (Auto) 0.0, Baso % (Auto) 0.2, Absolute Neuts (auto) 13.6 H, Absolute Lymphs (auto) 1.54, Nucleated RBC % 0, Sodium 132 L, Potassium 3.4 L, Chloride 98, Carbon Dioxide 27.0, Anion Gap 7, BUN 10, Creatinine 0.53 L, Estim Creat Clear Calc 114.96, Est GFR (MDRD) Af Amer 152, Est GFR (MDRD) Non-Af 126, BUN/Creatinine Ratio 18.9, Glucose 122 H, Calcium 9.2, Phosphorus 2.4 L, Magnesium 2.0, Total Bilirubin 0.70, Direct Bilirubin 0.29, AST 19, ALT 16, Alkaline Phosphatase 75, Total Protein 7.0, Albumin 3.0 L, Globulin 4.0, Albumin/Globulin Ratio 0.8 L, TSH 1.350 Micro: Microbiology 04/16/24 12:41 Mucosa - Nose SARS-CoV-2, Influenza & RSV (PCR) - Final Imaging Radiology Impression Abdomen/Pelvis CT 04/16/24 12:33 IMPRESSION: 1. Bilateral adrenal masses markedly larger on the right side for which correlation with nonemergent MRI with contrast or CT scan with adrenal protocol. 2. Endoluminal fatty polypoid lesion in the descending duodenum without evidence of obstruction at this time. GI consult is recommended. 3. Liver cysts. 4. Otherwise no focal acute inflammatory process. Electronically Signed: Corky Johnson MD at 13:46 EDT , ADDENDUM: 04/16/24 1735 IMPRESSION: undefined Chest CTA 04/16/24 12:33 IMPRESSION: 1. No evidence of pulmonary embolism. 2. No focal acute pulmonary infiltrate or pleural effusions. Electronically Signed: Corky Johnson MD at 13:36 EDT , Gallbladder Ultrasound 04/16/24 18:34 IMPRESSION: Multiple small hepatic cysts. No evidence for gallstones or acute cholecystitis Electronically Signed: Erwin Osborn MD at 19:46 EDT , Charges/Coding Visit Charges Inpatient E&M: 86818 Init Hosp L2
[2024-04-17] MEDS: Pantoprazole Sodium 40 MG in 0.9% Normal Saline (100mL MB+) 100 ML 330 MG IV (10:26)
--- NOTE | 2024-04-17 10:27 | CASEMGMT ---
Insurance review for hospitals In-network with [place] insurance if transfer is recommended is as follows: [facility], [place], [place], [place], [facility], [facility], [facility], [facility], [place], [facility]), and . Cara Saucedo, Discharge Planning Asst.
[2024-04-17] MEDS: 0.9% Normal Saline (1000mL) 1,000 ML 15 ML IV (13:05)
--- NOTE | 2024-04-17 13:12 | PRE.ANES_ITS ---
ASA Classification* ASA Classification ASA Classification: 2 Assessment & Plan Anesthesia* Anesthesia Assessment Anesthesia Assessment: Discussed sedation and/or anesthesia options, risks, benefits, and alternatives with patient/parents/legal guardian/POA. Questions invited. The patient/parents/legal guardian/POA seems to understand and agrees to proceed with anesthesia plan. Reviewed the physical assessment, medical history, allergy history and patient home medications list prior to surgery/procedure/anesthetic and documented any changes. Performed airway and anesthesia risk assessments. Anesthesia Type Anesthesia Type: MAC Anesthesia Focused Assessment* Temperature: 98.4 F Pulse Rate: 68 Blood Pressure: 116/71 Respiratory Rate: 16 Pulse Ox: 75 Airway Assessment Mouth opens: >3 cm Mallampati Score: II Focused Labs Anesthesia Preop lab: CBC WBC 16.0 K/mm3 (4.4-11.0) H 04/17/24 06:11 RBC 4.33 M/mm3 (4.2-5.4) 04/17/24 06:11 Hgb 13.4 g/dL (12.0-15.0) 04/17/24 06:11 Hct 39.6 % (37-47) 04/17/24 06:11 Plt Count 206 K/mm3 (150-450) 04/17/24 06:11 CHEMISTRY Potassium 3.4 mmol/L (3.5-5.1) L 04/17/24 06:11 Sodium 132 mmol/L (136-145) L 04/17/24 06:11 Magnesium 2.0 mg/dL (1.6-2.6) 04/17/24 06:11 Phosphorus 2.4 mg/dL (2.5-4.9) L 04/17/24 06:11 BUN 10 mg/dL (7-18) 04/17/24 06:11 Creatinine 0.53 mg/dL (0.55-1.02) L 04/17/24 06:11 Glucose 122 mg/dL (74-106) H 04/17/24 06:11 TSH 1.350 uIU/mL (0.358-3.740) 04/17/24 06:11 COAG Pre-Assessment Diagnosis/Proposed Procedure Planned Operative Procedure(s): EGD Anesthesia History Anesthesia History - procurement cost coordinator: Anesthesia History - procurement cost coordinator Hx Hospitalization Any Problems With Anesthesia No 04/17/24 12:36 Cholinesterase deficiency No 04/17/24 12:36 You/Your Family Experience No 04/17/24 12:36 fever (hyperthermia) with Relationship Recent Exposure to Contagious No 04/17/24 12:36 Disease Does patient have nerve No 04/17/24 12:36 stimulator Patient instructed to have device shut off --Does patient have Pacemaker No 04/17/24 12:39 or ICD? When Was Last Pacemaker Check QUESTION #4 FULL TEXT: You/Your Family Experience fever (hyperthermia) with Anesthesia Last Oral Intake Last Oral intake: Last Oral Intake NPO since 00:00 04/17/24 12:39 Meds taken in AM with sips of No 04/17/24 12:39 water? Meds patient instructed to take am of surgery PONV PONV - procurement cost coordinator: PONV - procurement cost coordinator Female HX of Motion Sickness HX of N/V After Surgery Non-Smoker Duration of Surgery greater than 60 minutes Number of Risk Factors PONV Score Height & Weight Height & Weight: Anesthesia: Height & Weight Height 5 ft 3 in 04/17/24 12:39 Weight: 78.744 kg 04/17/24 12:39 Body Mass Index (BMI) 30.7 04/17/24 12:39 Respiratory Assessment Respiratory Assessment - procurement cost coordinator: Respiratory Tract Infection Hx - procurement cost coordinator Hx Respiratory Tract Infection No 04/17/24 12:36 STOP Sleep Apnea STOP Sleep Apnea - procurement cost coordinator: STOP Sleep Apnea - procurement cost coordinator Hx Hypertension Yes 04/16/24 20:51 Hx Sleep Apnea No 04/16/24 20:51 CPAP BIPAP Do you snore loudly (louder No 04/16/24 20:51 than talking or can be heard Do you often feel tired/ No 04/16/24 20:51 fatigued/ sleepy during daytime? Has anyone observed you stop No 04/16/24 20:51 breathing during sleep? STOP Results Negative 04/16/24 20:51 QUESTION #5 FULL TEXT : Do you snore loudly (louder than talking or can be heard through closed doors)? Tobacco Use History Tobacco Use History - procurement cost coordinator: Tobacco Use History - procurement cost coordinator Tobacco Use Smoking Status Current every day smoker 04/16/24 20:51 Hx Tobacco Use Yes 04/16/24 20:51 Years Smoking Packs Smoked per Day 0.5 04/16/24 20:51 Smoking Cessation Date was within the last 15 years Hx Smoking Cessation Date Hx Smoking Cessation No 04/16/24 20:51 Counseling Hematologic Medial History Hematologic Hx - procurement cost coordinator: Hematologic Medical Hx - court specialist Hx of Blood Transfusion No 04/16/24 20:51 Hx of Transfusion in last 3 No 04/16/24 20:51 Months Date of Last Transfusion (if within last 3 months) Ever experience any problems No 04/16/24 20:51 with transfusion(s)? Specify any problems Hx of Preganancy in last 3 No 04/16/24 20:51 Months Nurse Filling Out Transfusion TMELLOR 04/16/24 20:51 & Questions: Date: 04/16/24 04/16/24 20:51 Time: 20:53 04/16/24 20:51 Patient unable to answer at this time (ie. confused, unrespo /Reproduction History /Reproductive History - procurement cost coordinator: /Reproductive Hx- procurement cost coordinator Hx Now No 04/17/24 12:36 Gestational Age (in weeks): EDC: Hx Hx Para Hx Section SAB No 04/17/24 12:36 Active Medications Active Medications: Current Medications Generic Name Dose Route Start Last Admin Trade Name Freq PRN Reason Stop Dose Admin Hydralazine HCl 10 mg 04/16/24 19:48 Hydralazine 20 Mg/Ml Vial IV Q6H PRN PRN SBP GREATER THAN 160 Protocol Pantoprazole Sodium 40 mg/ 110 mls @ 330 mls/hr 04/16/24 20:39 04/17/24 12:15 Sodium Chloride IV Infused DAILY BUD Infusion Piperacillin Sod/Tazobactam 50 mls @ 12.5 mls/hr 04/16/24 22:00 04/17/24 09:40 Sod 3.375 gm/ Sodium Chloride IV Infused Q8 BUD Infusion Sodium Chloride 250 mls @ 15 mls/hr 04/16/24 21:06 04/17/24 05:38 IV 0 mls/hr .[id number] PRN Infusion Saline Flush Sodium Chloride 1,000 mls @ 100 mls/hr 04/16/24 21:45 04/17/24 12:54 IV 0 mls/hr .Q10H BUD Infusion Sodium Chloride 1,000 mls @ 15 mls/hr 04/17/24 13:05 IV .Q48H BUD Morphine Sulfate 2 mg 04/16/24 20:39 04/17/24 05:43 Morphine 2 Mg/Ml Syringe IV 2 mg Q4H PRN PRN Administration Pain Score 6-10 Nicotine 14 mg 04/16/24 20:00 04/17/24 11:21 Nicotine 14 Mg Patch TD 14 mg DAILY BUD Administration Ondansetron HCl 4 mg 04/16/24 20:39 04/17/24 05:43 Ondansetron 4 Mg/2 Ml Vial IV 4 mg Q6H PRN PRN Administration NAUSEA/VOMITING Prochlorperazine Edisylate 10 mg 04/17/24 10:28 Prochlorperazine 10 Mg/2 Ml Vial IV Q6H PRN PRN NAUSEA Sodium Chloride 10 - 40 ml 04/16/24 21:06 04/17/24 05:43 0.9% Saline Lock 10 Ml Syringe IV 10 ml UD PRN Administration SALINE FLUSH PFSH Medical History Bleeding tendency Post-menopausal Back pain due to injury High cholesterol Smoker Depression Hypertension Home Medications ?Medication ?Instructions ?Recorded ?Last Taken ?Type atorvastatin 80 mg tablet 80 mg PO QHS cholesterol 04/16/24 Unknown History bupropion HCl 150 mg tablet,12 hr 150 mg PO BID 04/16/24 Unknown History sustained-release lisinopril 10 1 tab PO DAILY 04/16/24 Unknown History mg-hydrochlorothiazide 12.5 mg tablet sertraline 100 mg tablet 100 mg PO DAILY 04/16/24 Unknown History Allergy/AdvReac Type Severity Reaction Status Date / Time fluoxetine (From Prozac) Allergy Abd Verified 01/06/24 17:00 cramps/diarrhea Surgical History S/P tubal ligation Social History Smoking Status: Current every day smoker tobacco type: cigarettes Review of Systems (Anesthesia) ROS Narrative System reviewed and no additional complaints, except as documented.
--- NOTE | 2024-04-17 13:15 | CON.PCM.GI_ITS ---
HPI Consult Data Date of Consult: 04/17/24 HPI Narrative Reason for Consultation: Abnormal CT scan HPI Narrative: CARRILLO LEON, is a 58 F with presents to [facility] ER complaining of abdominal pain and fever. She has a past medical history of a past medical history of essential hypertension, hyperlipidemia, obesity; with BMI of 31.2 this admission, tobacco abuse, cannabis abuse, depression, history of tubal ligation and OA. Ms. Leon reports her symptoms began earlier this morning when she woke up not feeling well and noted that her pain worsened while she was at work so she decided to come in for further evaluation and treatment. She primarily complains of abdominal pain that is focused in her RUQ, ~6/10 and was made worse by taking a deep breath. She also admits to facial flushing, nausea, chills, SOB and feeling like something is stuck in her intestines that she cannot mobilize. She denies a personal or family history of cancer or nonmalignant lipomatous masses and she states she has never underwent an upper or lower endoscopy. There is no report of weight loss, blood in stools or similar previous episodes. I also spoke to her who was present at the bedside and answered his questions to the best of my ability. In the ER she was noted to have a CT scan of the abdomen and pelvis that revealed an Endoluminal Fatty Polypoid Lesion in the descending Duodenum without evidence of obstruction but with appearance of air in bowel wall worrisome for evolving Pneumatosis with Fever up to 100.8 degrees Fahrenheit and Leukocytosis of 13.5K present on admission with additional CT evidence of Bilateral Adrenal Masses markedly larger on the Right with Numerous Liver Cysts. [facility] Medical History Bleeding tendency Post-menopausal Back pain due to injury High cholesterol Smoker Depression Hypertension Home Medications ?Medication ?Instructions ?Recorded ?Last Taken ?Type atorvastatin 80 mg tablet 80 mg PO QHS cholesterol 04/16/24 Unknown History bupropion HCl 150 mg tablet,12 hr 150 mg PO BID 04/16/24 Unknown History sustained-release lisinopril 10 1 tab PO DAILY 04/16/24 Unknown History mg-hydrochlorothiazide 12.5 mg tablet sertraline 100 mg tablet 100 mg PO DAILY 04/16/24 Unknown History Allergy/AdvReac Type Severity Reaction Status Date / Time fluoxetine (From Prozac) Allergy Abd Verified 01/06/24 17:00 cramps/diarrhea Surgical History S/P tubal ligation Social History Smoking Status: Current every day smoker tobacco type: cigarettes ROS ROS Narrative Review of Systems: Constitutional: Patient admits to fever but denies chills. Eyes: Patient denies changes in vision or discharge from eyes. ENT: Patient denies runny nose, sore throat or ear pain. Resp: Patient admits to pleuritic Right-sided chest pain made worse with raking a deep breath. CV: Patient admits to chest pain with deep breathing but denies palpitations or heart racing. GI: Patient admits to ~6/10 RUQ abdominal pain with a feeling something is lodged in her bowel that she cannot mobilize as per HPI. : Patient denies dysuria, hematuria or urinary frequency/urgency. MSK: Patient denies arthralgias or myalgias. Skin: Patient admits to facial redness and flushing but she denies abscess or jaundice. Psych: Patient denies symptoms of uncontrolled depression or anxiety. Neuro: Patient denies headache, paresthesias or focal neurologic weakness. Allergy: Patient denies lip swelling, tongue swelling or urticaria. Hematology: Patient denies easy bleeding or easy bruisability. Endocrinology: Patient denies polyuria, polydipsia or polyphagia. 14 point ROS otherwise negative except positives noted above in HPI. Physical Exam Const alert and oriented x3 General Appearance: cooperative HEENT normocephalic, head/scalp atraumatic and hearing grossly normal bilaterally HEENT Narrative: Mucous membranes dry. Eyes PERRL and EOMs intact bilaterally Neck no lymphadenopathy and supple Resp normal respiratory effort, no retractions, no use of accessory muscles and clear to auscultation bilaterally Cardio regular rate and regular rhythm GI normal to inspection, nondistended, normoactive bowel sounds, soft to palpation and non-distended GI Narrative: RUQ TTP. Extremity normal to inspection, full ROM and no clubbing, cyanosis or edema Skin Skin Narrative: Patient has evidence of facial redness and flushing. She has no evidence of wounds, abscess or jaundice. Neuro oriented x3, CN's II-XII intact bilaterally, moves all extremities and no focal motor deficits Sensorium / Orientation: awake, alert, oriented to person, oriented to place and oriented to time Speech: speech normal Psych Mood & Affect: anxious Lab / Micro Data 04/17/24 06:11 04/17/24 06:11 Labs: Laboratory Results - last 24 hr 04/16/24 13:20: Urine Color Straw, Urine Clarity Clear, Urine pH 7.0, Ur Specific [place] 1.010, Urine Protein Negative, Urine Glucose (UA) Normal, Urine Ketones 15 H, Urine Occult Blood 25 H, Urine Nitrite Negative, Urine Bilirubin Negative, Urine Urobilinogen Normal, Ur Leukocyte Esterase 100 H, Urine RBC 0 SEEN, Urine WBC 0-5 SEEN, Ur Squamous Epith Cells 0 SEEN, Urine Bacteria 0 SEEN, Urine Mucus 0 SEEN 04/17/24 06:11: WBC 16.0 H, RBC 4.33, Hgb 13.4, Hct 39.6, MCV 91.5, MCH 30.9, MCHC 33.8, RDW Std Deviation 44.6 H, RDW Coeff of [place] 13.2, Plt Count 206, MPV 10.1, Immature Gran % (Auto) 0.500, Neut % (Auto) 85.0 H, Lymph % (Auto) 9.7 L, [place] % (Auto) 4.6, Eos % (Auto) 0.0, Baso % (Auto) 0.2, Absolute Neuts (auto) 13.6 H, Absolute Lymphs (auto) 1.54, Nucleated RBC % 0, Sodium 132 L, Potassium 3.4 L, Chloride 98, Carbon Dioxide 27.0, Anion Gap 7, BUN 10, Creatinine 0.53 L, Estim Creat Clear Calc 114.96, Est GFR (MDRD) Af Amer 152, Est GFR (MDRD) Non-Af 126, BUN/Creatinine Ratio 18.9, Glucose 122 H, Calcium 9.2, Phosphorus 2.4 L, Magnesium 2.0, Total Bilirubin 0.70, Direct Bilirubin 0.29, AST 19, ALT 16, Alkaline Phosphatase 75, Total Protein 7.0, Albumin 3.0 L, Globulin 4.0, A lbumin/Globulin Ratio 0.8 L, TSH 1.350 Micro: Microbiology 04/16/24 12:41 Mucosa - Nose SARS-CoV-2, Influenza & RSV (PCR) - Final Imaging Radiology Impression Abdomen/Pelvis CT 04/16/24 12:33 IMPRESSION: 1. Bilateral adrenal masses markedly larger on the right side for which correlation with nonemergent MRI with contrast or CT scan with adrenal protocol. 2. Endoluminal fatty polypoid lesion in the descending duodenum without evidence of obstruction at this time. GI consult is recommended. 3. Liver cysts. 4. Otherwise no focal acute inflammatory process. Electronically Signed: Corky Johnosn MD at 13:46 EDT , ADDENDUM: 04/16/24 1738 IMPRESSION: undefined Chest CTA 04/16/24 12:33 IMPRESSION: 1. No evidence of pulmonary embolism. 2. No focal acute pulmonary infiltrate or pleural effusions. Electronically Signed: Corky Johnson MD at 13:36 EDT , Gallbladder Ultrasound 04/16/24 18:34 IMPRESSION: Multiple small hepatic cysts. No evidence for gallstones or acute cholecystitis Electronically Signed: Erwin Osborn MD at 19:46 EDT , Assessment & Plan Assessment/Plan (1) Duodenal mass: (2) Abdominal pain: QUALIFIERS: Abdominal location: right upper quadrant Qualified Code(s): R10.11 - Right upper quadrant pain (3) Adrenal mass: (4) Leukocytosis: QUALIFIERS: Leukocytosis type: unspecified Qualified Code(s): D 72.829 - Elevated white blood cell count, unspecified (5) Tobacco abuse: (6) Obesity (BMI 30.0-34.9): (7) Depression: QUALIFIERS: Depression Type: unspecified Qualified Code(s): F32.A - Depression, unspecified PLAN: Plan 58-year-old comes in with acute onset of abdominal pain and discovered to have Polypoid Lesion in the descending Duodenum without evidence of obstruction but with appearance of air in bowel wall worrisome for potential evolving Pneumatosis with Fever up to 100.8 degrees Fahrenheit and Leukocytosis of 13.5K. Differential diagnosis does include enlarged lipoma, GIST tumor, hematoma, and large duodenal diverticulum. She will undergo an upper endoscopy for evaluation of the second portion of the duodenum. She was explained alternatives, risk, benefits include not withstanding bleeding, infection, sepsis, perforation, need for emergent urgent . She will have an ASA of 3. Charges/Coding Visit Charges Inpatient E&M: 19130 Init Hosp L3
--- NOTE | 2024-04-17 13:15 | EGD_PTH ---
PATIENT: CARRILLO LEON LOC: MS3 U#:[id number] AGE/SX: 58/F ROOM: [facility] [place]04/16/[address]: Dr. Kostas Coffman DO : 1965 BED: 1 DIS: 04/18/2024 SPEC #: [id number] RECD: 04/18/24 08:49 STATUS: MAL[place] REQ #: [id number] KENAN: 04/17/24 13:[address]: Alex Howard DEPT: SURGICAL PATHOLOGY RECD BY: Vargas Del Rosario ENTERED: 04/18/24 10:12 SP TYPE: EGD BIOPSY OT DR: DO Dr. Rico Max MD Dr. David de Lorenzo, DO Dr. Saravanan Hidalgo DO Tissues: Duodenum, NOS Procedures: Surgery Specimen Level IV HEADER OPERATION: EGD with biopsy PRE-OP DIAGNOSIS: Abnormal CT TISSUE SUBMITTED: Duodenal mass biopsy MICROSCOPIC DIAGNOSIS Duodenal mass, biopsy: Polypoid fragments of benign enteric mucosa with mild chronic inflammation. 04/19/2024 MICROSCOPIC DESCRIPTION Slides are reviewed. GROSS DESCRIPTION Received in fixative is one container labeled with the patient's name and designated Duodenal mass biopsy. The specimen consists of two irregular fragments of light sands soft tissue that in aggregate measure 0.6 x 0.3 x 0.1 cm. The specimen is totally submitted in one cassette. 04/18/2024 TC:3 CPT:12621
--- NOTE | 2024-04-17 13:39 | PCM.POST.ANE ---
Anesthesia: Postop Eval I Current Vital Signs Temperature: 97.5 F Pulse Rate: 70 Blood Pressure: 107/54 Respiratory Rate: 16 Pulse Ox: 94 Oxygen Delivery Method: Room Air Assessment Airway patent: Yes Spontaneous unlabored respirations: Yes Mental status: Awake and Calm nausea: No Vomiting: No Anesthesia Complication: No Fluid Hydration Crystalloid volume administer (ml): 200 Total IV fluid infused: 200 Progress Note Anesthesia document: Postop Eval 1 completed: Yes
--- NOTE | 2024-04-17 14:54 | NURSING ---
Delay in getting pt back to [facility] due to waiting to give report to [facility].
--- NOTE | 2024-04-17 15:57 | OP.EGD_ITS ---
Patient Name: Violet Chin Procedure Date: 04/17/2024 1:14 PM Date of : 1965 Age: 58 Procedure: Upper GI endoscopy Indications: Epigastric abdominal pain, Abdominal pain in the right upper quadrant, Dysphagia Providers: Alex Howard DO Medicines: Monitored Anesthesia Care Patient Profile: This is a 58 year old female. Refer to note in patient chart for documentation of history and physical. Complications: No immediate complications. Procedure: Pre-Anesthesia Assessment: - Prior to the procedure, a History and Physical was performed, and patient medications and allergies were reviewed. The patient is competent. The risks and benefits of the procedure and the sedation options and risks were discussed with the patient. All questions were answered and informed consent was obtained. Patient identification and proposed procedure were verified by the physician in the pre-procedure area. Mental Status Examination: alert and oriented. Airway Examination: normal oropharyngeal airway and neck mobility. Respiratory Examination: clear to auscultation. CV Examination: normal. Prophylactic Antibiotics: The patient does not require prophylactic antibiotics. Prior Anticoagulants: The patient has taken no anticoagulant or antiplatelet agents. ASA Grade Assessment: III - A patient with severe systemic disease. After reviewing the risks and benefits, the patient was deemed in satisfactory condition to undergo the procedure. The anesthesia plan was to use monitored anesthesia care (MAC). Immediately prior to administration of medications, the patient was re-assessed for adequacy to receive sedatives. The heart rate, respiratory rate, oxygen saturations, blood pressure, adequacy of pulmonary ventilation, and response to care were monitored throughout the procedure. The physical status of the patient was re-assessed after the procedure. After obtaining informed consent, the endoscope was passed under direct vision. Throughout the procedure, the patient's blood pressure, pulse, and oxygen saturations were monitored continuously. The Endoscope was introduced through the mouth, and advanced to the second part of duodenum. The upper GI endoscopy was accomplished without difficulty. The patient tolerated the procedure well. Scope In: 1:25:26 PM Scope Out: 1:29:26 PM Total Procedure Duration Time 0 hours 4 minutes 0 seconds Findings: The examined esophagus was normal. No gross lesions were noted in the entire examined stomach. Few non-bleeding linear duodenal ulcers with no stigmata of bleeding were found in the duodenal bulb. The largest lesion was 3 mm in largest dimension. There was a large lipoma, 30 mm in diameter, in the first portion of the duodenum. Biopsies were taken with a cold forceps for histology. Verification of patient identification for the specimen was done. Estimated blood loss was minimal. Impression: - Normal esophagus. - No gross lesions in the entire stomach. - Non-bleeding duodenal ulcers with no stigmata of bleeding. - Duodenal lipoma. Biopsied. Recommendation: - Return patient to hospital last for ongoing care. - Full liquid diet today. - Use sucralfate tablets 1 gram PO QID for 2 weeks. - Use Protonix (pantoprazole) 40 mg PO BID for 12 weeks. - Continue present medications. Procedure Code(s): --- Professional --- 06189, Esophagogastroduodenoscopy, flexible, transoral; with biopsy, single or multiple CPT copyright 2021 [employer]. All rights reserved. The codes documented in this report are preliminary and upon outpatient coder review may be revised to meet current compliance requirements. Alex Howard DO 04/17/2024 3:56:56 PM This report has been signed electronically. Number of Addenda: 0 Note Initiated On: 04/17/2024 1:14 PM
--- NOTE | 2024-04-17 15:57 | OP.CCLET_ITS ---
04/17/2024 Rico Lemus Re : Upper GI endoscopy procedure for Violet Castillor Mariah This procedure was performed on Wednesday, April 17, 2024. My impressions and recommendations are as follows: Impressions : - Normal esophagus. - No gross lesions in the entire stomach. - Non-bleeding duodenal ulcers with no stigmata of bleeding. - Duodenal lipoma. Biopsied. Recommendations : - Return patient to hospital last for ongoing care. - Full liquid diet today. - Use sucralfate tablets 1 gram PO QID for 2 weeks. - Use Protonix (pantoprazole) 40 mg PO BID for 12 weeks. - Continue present medications. My findings are described in the full procedure note, which is enclosed. If I can be of further assistance, please feel free to contact me at . Sincerely, Alex Howard, 04/17/2024 3:56:56 PM This report has been signed electronically.
--- NOTE | 2024-04-17 16:23 | PN.HOSP_ITS ---
Reason for Visit Reason for Visit: Diagnoses Elevated white blood cell count, unspecified (04/16/24) Other specified disorders of adrenal gland (04/16/24) Obesity, unspecified (04/16/24) Depression, unspecified (04/16/24) Other diseases of stomach and duodenum (04/16/24) Right upper quadrant pain (04/16/24) Tobacco use (04/16/24) Subjective Subjective Patient was seen and examined today, I talked with surgery and gastroenterology today, surgery did not feel the patient had an acute gallbladder, gastroenterology performed an EGD today which showed nonbleeding duodenal ulcers and a lipoma in the duodenum. Objective Data Objective Data Vital Signs: Vital Signs Temp Pulse Resp BP Pulse Ox O2 Del Method O2 Flow Rate 97.3 F L 67 16 111/57 L 95 Room Air 2 04/17/24 13:55 04/17/24 13:55 04/17/24 13:55 04/17/24 13:55 04/17/24 13:55 04/17/24 13:55 04/17/24 13:13 Oxygen Flow Rate (L/min) 2 Oxygen Delivery Method Room Air Weight: 78.744 kg Body Mass Index (BMI) 30.7 Intake & Output: Intake and Output for Last 24 Hours 04/15/24 04/16/24 04/17/24 23:59 23:59 23:59 Intake Total 1160 / 1160 1702.75 / 1702.75 Balance 1160 / 1160 1702.75 / 1702.75 Lab / Micro Data 04/17/24 06:11 04/17/24 06:11 Labs: Laboratory Results - last 24 hr 04/17/24 06:11: WBC 16.0 H, RBC 4.33, Hgb 13.4, Hct 39.6, MCV 91.5, MCH 30.9, MCHC 33.8, RDW Std Deviation 44.6 H, RDW Coeff of [place] 13.2, Plt Count 206, MPV 10.1, Immature Gran % (Auto) 0.500, Neut % (Auto) 85.0 H, Lymph % (Auto) 9.7 L, [place] % (Auto) 4.6, Eos % (Auto) 0.0, Baso % (Auto) 0.2, Absolute Neuts (auto) 13.6 H, Absolute Lymphs (auto) 1.54, Nucleated RBC % 0, Sodium 132 L, Potassium 3.4 L, Chloride 98, Carbon Dioxide 27.0, Anion Gap 7, BUN 10, Creatinine 0.53 L, Estim Creat Clear Calc 114.96, Est GFR (MDRD) Af Amer 152, Est GFR (MDRD) Non-Af 126, BUN/Creatinine Ratio 18.9, Glucose 122 H, Calcium 9.2, Phosphorus 2.4 L, Magnesium 2.0, Total Bilirubin 0.70, Direct Bilirubin 0.29, AST 19, ALT 16, Alkaline Phosphatase 75, Total Protein 7.0, Albumin 3.0 L, Globulin 4.0, A lbumin/Globulin Ratio 0.8 L, TSH 1.350 Micro: Microbiology 04/16/24 12:41 Mucosa - Nose SARS-CoV-2, Influenza & RSV (PCR) - Final Radiography Diagnostic Testing: Radiology Impression Abdomen/Pelvis CT 04/16/24 12:33 IMPRESSION: 1. Bilateral adrenal masses markedly larger on the right side for which correlation with nonemergent MRI with contrast or CT scan with adrenal protocol. 2. Endoluminal fatty polypoid lesion in the descending duodenum without evidence of obstruction at this time. GI consult is recommended. 3. Liver cysts. 4. Otherwise no focal acute inflammatory process. Electronically Signed: Corky Johnson MD at 13:46 EDT , ADDENDUM: 04/16/24 1735 IMPRESSION: undefined Gallbladder Ultrasound 04/16/24 18:34 IMPRESSION: Multiple small hepatic cysts. No evidence for gallstones or acute cholecystitis Electronically Signed: Erwin Osborn MD at 19:46 EDT , Physical Exam Const alert, oriented x3, no apparent distress and healthy appearing General Appearance: cooperative, well kempt and well developed Orientation / Consciousness: awake, oriented to person, oriented to place and oriented to time HEENT normocephalic, head/scalp atraumatic and moist oral mucous membranes Eyes PERRL, EOMs intact bilaterally and conjunctivae normal Neck supple, no JVD, thyroid normal and no carotid bruits General: trachea midline Resp normal respiratory effort, no retractions, no use of accessory muscles and clear to auscultation bilaterally Auscultation: Negative for rales, rhonchi or wheezes Cardio regular rate, regular rhythm, S1 normal heart sound, S2 normal heart sound, no murmurs, no rub and no gallops GI normal to inspection, nondistended, normoactive bowel sounds, soft to palpation and non-distended GI Narrative: Patient's abdomen is moderately tender to palpation in all 4 quadrants, no rebound abdominal tenderness was noted Extremity no clubbing, cyanosis or edema Skin no rashes or lesions noted General Skin Exam: no breakdown Neuro oriented x3, CN's II-XII intact bilaterally, moves all extremities, no focal motor deficits and no sensory deficits noted Sensorium / Orientation: awake and alert Speech: speech normal Psych affect normal Assessment & Plan Assessment/Plan (1) Abdominal pain: QUALIFIERS: Abdominal location: right upper quadrant Qualified Code(s): R10.11 - Right upper quadrant pain PLAN: Plan 1. 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 Quiros and he stated he would be glad to see the patient as an outpatient and perform the workup. The patient however is a [facility] patient and would probably want to follow-up in the [facility] system-I talked with Dr. Proctor and he stated that he did not do the workup for these masses and that he would recommend an freight car builder work this up. There is a CT adrenal protocol that can be ordered as well as an MRI adrenal protocol. These are usually outpatient procedures. #4 leukocytosis-etiology unclear, patient was placed on antibiotics when she was admitted, I have elected to stop her antibiotics-there is no source of infection that I can document #5 essential hypertension-patient will be placed on her outpatient medications #6 chronic depression-patient will remain on her outpatient medications. Total clinical time spent by myself addressing the patient's medical issues, reviewing all of her data, and collaborating with patient's care team: 35 minutes Charges/Coding Visit Charges Inpatient E&M: 30554 Subs Hosp L2
[2024-04-17] MEDS: Potassium Chloride Oral Tablet 20 MEQ PO (17:26)
--- NOTE | 2024-04-17 17:44 | PCM.POSTANE2 ---
Anesthesia Postop Eval I Sum Postop Eval Completion status Anesthesia document: Postop Eval 1 completed: Yes Anesthesia Postop Eval I Summary Anesthesia Postop Eval I Summary: Anesthesia Postop Eval I: Assessment Summary Airway patent Yes 04/17/24 13:41 Spontaneous unlabored Yes 04/17/24 13:41 respirations Mental status Awake,Calm 04/17/24 13:41 nausea No 04/17/24 13:41 Vomiting No 04/17/24 13:41 Anesthesia Postop Eval I: Fluid Summary Crystalloid volume administer 200 04/17/24 13:41 (ml) Colloids volume administered ( ml) Blood Product volume administered (ml) Total IV fluid infused 200 04/17/24 13:41 Anesthesia Postop Eval I: Summary Notes Anesthesia Complication No 04/17/24 13:41 Anesthesia Complication Comment: Post-operative progress note Anesthesia: Postop Eval II Evaluation Mental status: Awake Pain Level: 0 nausea: No Vomiting: No
[2024-04-17] MEDS: Sucralfate 1 GM Tablet PO (21:17)
[2024-04-18 01:41] VITALS: BP 133/50; PULSE 69; RESP 18; TEMP 37; O2SAT 98
[2024-04-18] MEDS: 0.9% Saline Lock 10 ML Syringe IV (03:48)
[2024-04-18 04:11] VITALS: BP 125/56; PULSE 70; RESP 20; TEMP 36.8; O2SAT 97
[2024-04-18 06:00] VITALS: PULSE 50
[2024-04-18] MEDS: 0.9% Normal Saline (1000mL) 1,000 ML 75 ML IV (06:54)
[2024-04-18] MEDS: Sucralfate 1 GM Tablet PO ×2 (06:54→11:13)
[2024-04-18 07:20] LABS: Absolute Lymphocyte Count 1.91 X10^3/uL (0.83-4.51); Absolute Neutrophil Count 6.1 X10^3/uL (2.0-7.7); Basophil# 0.03 X10^3/uL; Basophil% 0.4 % (0-1); Eosinophil# 0.03 X10^3/uL; Eosinophils% 0.4 % (0-5); Hematocrit 35.3 % (37-47); Hemoglobin 11.8 g/dL (12.0-15.0); Lymphocyte # 1.91 X10^3/ul (0.83-4.51); Lymphocyte % 22.3 % (19-41); Mean Corp Hgb Conc 33.4 g/dL (32-36); Mean Corpuscular Hgb 30.7 pg (27.0-32.0); Mean Corpuscular Volume 91.9 fL (81-99); Mean Platelet Vol. 10.4 fl (6.2-12.0); Monocyte% 5.8 % (0-10); NRBC Flagged by Analyzer 0 % (0-5); Neutrophil # 6.07 X10^3/uL (2.7-7.7); Neutrophil % 70.7 % (47-70); Platelet Count 197 K/mm3 (150-450); RBC Distribution Width CV 13.3 % (11.6-14.6); Red Blood Count 3.84 M/mm3 (4.2-5.4); White Blood Count 8.6 K/mm3 (4.4-11.0)
[2024-04-18 07:42] LABS: Anion Gap 6 (5-15); BUN 11 mg/dL (7-18); Calcium,Total 9.1 mg/dL (8.5-10.1); Chloride 101 mmol/L (98-107); Creatinine, Serum 0.48 mg/dL (0.55-1.02); EST Glomerular Filtration Rate 142 mL/min (>60); Est Glom Filt Rate - Afr Amer 171 mL/min (>60); Estimated Creatinine Clearance 126.93 ml/min; Glucose 101 mg/dL (74-106); Magnesium 2.1 mg/dL (1.6-2.6); Phosphorus 2.1 mg/dL (2.5-4.9); Potassium 3.2 mmol/L (3.5-5.1); Sodium Level 133 mmol/L (136-145)
[2024-04-18 08:39] VITALS: O2SAT 94
--- NOTE | 2024-04-18 09:06 | PCM.PN.SRG ---
Subjective Subjective Patient evaluated resting comfortably in bed. She denies any nausea, vomiting, fever, or abdominal pain. She notes her last dose of pain medication was around 10 pm. She notes the pain this morning has almost completely resolved. Objective Data Objective Data Vital Signs: Vital Signs Temp Pulse Resp BP Pulse Ox O2 Del Method O2 Flow Rate 98.2 F 50 L 20 H 125/56 H 94 Room Air 2 04/18/24 04:11 04/18/24 06:00 04/18/24 04:11 04/18/24 04:11 04/18/24 08:39 04/18/24 08:39 04/17/24 13:13 Oxygen Flow Rate (L/min) 2 Oxygen Delivery Method Room Air Weight: 173 lb 9.6 oz Body Mass Index (BMI) 30.7 Intake & Output: Intake and Output for Last 24 Hours 04/16/24 04/17/24 04/18/24 23:59 23:59 23:59 Intake Total 1160 / 1160 2236.08 / 2436.08 200 / 200 Balance 1160 / 1160 2236.08 / 2436.08 200 / 200 Lab / Micro Data 04/18/24 06:11 04/18/24 06:11 Labs: Laboratory Results - last 24 hr 04/18/24 06:11: WBC 8.6, RBC 3.84 L, Hgb 11.8 L, Hct 35.3 L, MCV 91.9, MCH 30.7, MCHC 33.4, RDW Std Deviation 45.0 H, RDW Coeff of [place] 13.3, Plt Count 197, MPV 10.4, Immature Gran % (Auto) 0.400, Neut % (Auto) 70.7 H, Lymph % (Auto) 22.3, [place] % (Auto) 5.8, Eos % (Auto) 0.4, Baso % (Auto) 0.4, Absolute Neuts (auto) 6.1, Absolute Lymphs (auto) 1.91, Nucleated RBC % 0, Sodium 133 L, Potassium 3.2 L, Chloride 101, Carbon Dioxide 26.0, Anion Gap 6, BUN 11, Creatinine 0.48 L, Estim Creat Clear Calc 126.93, Est GFR (MDRD) Af Amer 171, Est GFR (MDRD) Non-Af 142, BUN/Creatinine Ratio 23.0 H, Glucose 101, Calcium 9.1, Phosphorus 2.1 L, Magnesium 2.1 Micro: Microbiology 04/16/24 12:41 Mucosa - Nose SARS-CoV-2, Influenza & RSV (PCR) - Final Physical Exam GI GI Narrative: Abdomen- RUQ non-tender to palpation, soft. Assessment & Plan Assessment/Plan (1) Right upper quadrant abdominal pain: PLAN: I am seeing this patient in conjunction with Dr. Tavarez. He will independently evaluate this patient S/p EGD with Dr. Howard. Multiple non-bleeding duodenal ulcers were found along with duodenal lipoma Patient placed on PPI and Carafate I have discussed with the patient that following completion of treatment for duodenal ulcers, if she experiences right upper quadrant discomfort especially associated with eating, her primary care may need to further look into her gallbladder by obtaining a HIDA scan Patient verbally understood No surgical intervention planned Patient is ready for discharge from a surgical standpoint Charges/Coding Visit Charges Inpatient E&M: 32538 Subs Hosp L1
[2024-04-18 09:22] VITALS: BP 156/80; PULSE 65; RESP 16; TEMP 36.9; O2SAT 96
[2024-04-18 09:26] LABS: Vitamin B12 603 pg/mL (211-911)
[2024-04-18] MEDS: Pantoprazole Sodium 40 MG Tablet PO (09:32)
[2024-04-18] MEDS: Na Biphos/Potassium Phosphate PACKET 1 PACKET PO ×2 (09:33→12:03)
[2024-04-18] MEDS: Potassium Chloride Oral Tablet 20 MEQ 40 MEQ PO (09:33)
[2024-04-18 09:36] LABS: Ferritin 242 ng/mL (8-252); Iron 58 ug/dL (50-170); Iron Binding Capacity,Total 229 ug/dL (250-450); PERCENT IRON SATURATION 25.3 % (15.0-55.0)
--- NOTE | 2024-04-18 09:54 | CASEMGMT ---
RN SRINIVAS PRINT LINE INSPECTOR SRINIVAS?to room to meet with patient for initial transition planning/care coordination assessment. RN SRINIVAS?introduced self and role at [facility]. Pt voices understanding and consents to assessment?at this time. Pt sitting up in bed in no distress at this time. in room visiting. Pt is A/O at this time and answers all questions appropriately. Care providers, pharmacy, and demographics verified/updated at this time. Strata:?2 PCP: Dr Lemus Specialists: none Preferred Pharmacy: [facility] Insurance: [employer] Prescription Benefit: Yes Living Will/HPOA: States does not have LW or HCPOA . Interested in more information and would like to complete AD, if SW available prior to her discharging. She is aware if AD not done prior to discharge, this can be completed w/SW as an OP. Tereza PINA,made aware and TIMBO ESPINO provided pt w/AD booklet. LNOK: , Ravindra. 3 adult children. Living Arrangements: Lives w/ and youngest daughter, Megan (age 23), in 2-story home that they rent. There are 6 steps to enter through front entrance or total of 8 if goes through side entrance. Bedroom and bathroom on 2nd floor. No bathroom on main floor. Pt is independent and denies having difficulty w/stairs prior to hospitalization and denies having concerns being able to navigate them at discharge. Transportation:?Pt states drives self and states no transportation concerns at this time. also drives. DME: Denies using any DME HHC/SNF: No hx of either. Denies needs and no needs identified. Pt wishes to return home and states has no concerns with going home at time of discharge. CM?to follow for any further discharge planning/needs. Pt and voice no further concerns/needs at this time. Advised them to ask for CM?if any further questions/concerns/needs arise. They voice understanding. PLAN: Home Maria Luz STILL RN, CM
--- NOTE | 2024-04-18 11:46 | CASEMGMT ---
Social Work- SW met with pt to complete directives. Pt named Ravindra, , as primary agent and Jael, daughter, as alternate agent. Copies provided to pt for agents and a copy placed on chart with original going to the pt. TRAE Ngo
--- NOTE | 2024-04-18 13:37 | DCINST_ITS ---
Discharge Instructions Diet Discharge Diet: No restrictions Activity Discharge Activity: Return to Normal Activity Return to work on:: 04/22/24 Follow Up Care Test Results: Test results from this visit will be discussed in further detail at your follow- up appointment, if applicable. Discharge Plan Admission Admit Date/Time: 04/16/24 19:39 Primary Reason for Your Visit: abdominal pain Attending Provider: Kostas Coffman Primary Care Provider: Rico Lemus Consulting Providers: Rodney Meyer; Saravanan Hidalgo Instructions Additional Instructions / Restrictions: Follow-up with your primary care doctor in the next 1 to 2 weeks. Please have him place a referral to endocrinology for you to follow-up on the adrenal masses seen on your CAT scan here. Please take the pantoprazole twice daily for 12 weeks, and take the sucralfate before meals for the next 2 weeks. Discharge Orders/Prescriptions Prescriptions: New sucralfate 1 gram Tablet 1 g PO 1HR_ACHS 14 Days Qty: 42 0RF pantoprazole 40 mg Tablet,Delayed Release (Dr/Ec) 40 mg PO BID 90 Days Qty: 180 0RF Continued bupropion HCl 150 mg tablet sustained-release 12 hr 150 mg PO BID atorvastatin 80 mg tablet 80 mg PO QHS sertraline 100 mg tablet 100 mg PO DAILY lisinopril-hydrochlorothiazide 10-12.5 mg tablet 1 tab PO DAILY Referrals / Follow Up: Rico Lemus MD [Primary Care Provider] - Disposition Disposition (needs filled in before D/C Order can be placed): Home, Self Care
--- NOTE | 2024-04-18 13:37 | PCM.DC.SUM ---
Providers Date of Admission: 04/16/24 Date of Discharge: 04/18/24 Primary Care Physician: Dr. Rico Lemus MD Consultations 04/16/24 20:39 Consult: Gastroenterology Routine Consulting Provider: [facility] Reason for Consult: Fatty Mass in Duodenum with Fever, RUQ pain and Leukocytosis. EMERGENT Consult: No MD Notified: Yes Date Notified: 04/16/24 Time Notified: 19:42 Method of Notification: ED Physician Initiated Consult: General Surgery Routine Consulting Provider: Stanley Tavarez Reason for Consult: Fatty Mass in Duodenum with RUQ pain, fever and Leukocytosis. EMERGENT Consult: No MD Notified: No Date Notified: 04/16/24 Time Notified: 19:43 Reason For Visit: MASS IN DUODENUM AND ADRENALS W FEVER, LEUKOCYTOSI Diagnosis Discharge Diagnosis (1) Right upper quadrant abdominal pain: Status: Acute Code(s): R10.11 - Right upper quadrant pain Medications at Discharge Home Medications atorvastatin 80 mg tablet 80 mg PO QHS cholesterol 04/16/24 bupropion HCl 150 mg tablet,12 hr sustained-release 150 mg PO BID 04/16/24 lisinopril 10 mg-hydrochlorothiazide 12.5 mg tablet 1 tab PO DAILY 04/16/24 sertraline 100 mg tablet 100 mg PO DAILY 04/16/24 pantoprazole 40 mg tablet,delayed release 40 mg PO BID 90 days #180 tabs 04/18/24 sucralfate 1 gram tablet 1 g PO 1HR_ACHS 14 days #42 tabs 04/18/24 Hospital Course Operations None Procedures EGD, EKG and - (CT abdomen pelvis, CTA chest, gallbladder ultrasound) Summary of Care Provided Minutes Spent on Discharge: 35 Hospital Course: Patient is a 58-year-old female who presented [facility] ED on 04/16/2024 with worsening abdominal pain. Hospital course as noted below. Patient discharged home in stable condition on 04/18. 1. Abdominal pain, improved; nonbleeding duodenal ulcers; duodenal lipoma; concern for biliary colic ? GI and general surgery followed. Presented with fairly acute onset abdominal pain with pain worst in the right upper quadrant. CT abdomen pelvis on admit showed intramural mass within the descending portion of the duodenum, no other significant findings. Gallbladder ultrasound showed multiple small hepatic cysts, no evidence of gallstones or acute cholecystitis. CTA chest was unremarkable. EGD on 04/17 showed a nonobstructing duodenal lipoma as well as nonbleeding duodenal ulcers with no stigmata of bleeding. Per GI and general surgery, suspect ulcers may have been contributing to pain versus possible biliary colic; low concern that duodenal lipoma was causing her symptoms. No surgical intervention required during hospitalization. Patient with significant improvement in pain after EGD and was tolerating a regular diet without issue on day of discharge. Recommended p.o. PPI twice daily for 12 weeks and sucralfate with meals for 2 weeks on discharge. 2. Incidental bilateral adrenal masses ? CT abdomen pelvis on admit showed bilateral adrenal masses markedly larger on right side with recommendation for correlation with nonemergent MRI with contrast or CT scan with adrenal protocol. Was discussed informally with Dr. Quiros with hematology/oncology who noted that this was an incidental finding and not contributing to her pain on admission. He recommended either follow-up with hematology/oncology versus follow-up with endocrinology after discharge. Patient is a [facility] patient and can discuss with her PCP on outpatient follow-up about referrals to the specialist for further workup. 3. Mild leukocytosis, improving ? Initially high concern for infection given leukocytosis and abdominal pain on admission. However, acute cholecystitis ruled out and no other nidus for infection identified. Patient was afebrile and noninfectious appearing during hospitalization. No need for antibiotics at discharge. Chronic medical conditions: ? Obesity: BMI 30 on admit. Complicated hospital course, care and prognosis. ? Tobacco abuse: Encouraged cessation on discharge. ? Hypertension: Continue home lisinopril?hydrochlorothiazide. ? Depression: Stable. Continue home sertraline. ? Hyperlipidemia: Continue home statin. Total clinical time spent by myself addressing the patient's medical issues, reviewing all the data, and collaborating with patient's care team: 35 minutes. Physical Exam Const alert, oriented x3 and no apparent distress Constitutional Narrative: Pleasant middle-age female, obese, sitting up actively bed, conversing normally, in no acute distress. General Appearance: cooperative and comfortable HEENT normocephalic, head/scalp atraumatic, hearing grossly normal bilaterally, nasal mucous membranes and turbinates normal and moist oral mucous membranes Eyes PERRL, EOMs intact bilaterally and conjunctivae normal Neck full ROM Chest inspection of chest normal Resp normal respiratory effort, normal air movement, no use of accessory muscles and clear to auscultation bilaterally Cardio regular rate, regular rhythm, no murmurs and peripheral pulses 2+ throughout GI GI Narrative: Abdominal exam improved from admission. Abdomen soft, nontender and nondistended on discharge. Back/Spine normal ROM Extremity normal to inspection, full ROM and no pedal edema Skin no rashes or lesions noted Neuro moves all extremities and no focal motor deficits Speech: speech normal Psych mental status grossly normal Weight / BMI Weight Weight: 78.744 kg Body Mass Index (BMI) 30.7 ABG / Lab / Microbiology Data 04/18/24 06:11 04/18/24 06:11 Laboratory: Laboratory Results - last 24 hr 04/18/24 06:11: WBC 8.6, RBC 3.84 L, Hgb 11.8 L, Hct 35.3 L, MCV 91.9, MCH 30.7, MCHC 33.4, RDW Std Deviation 45.0 H, RDW Coeff of [place] 13.3, Plt Count 197, MPV 10.4, Immature Gran % (Auto) 0.400, Neut % (Auto) 70.7 H, Lymph % (Auto) 22.3, [place] % (Auto) 5.8, Eos % (Auto) 0.4, Baso % (Auto) 0.4, Absolute Neuts (auto) 6.1, Absolute Lymphs (auto) 1.91, Nucleated RBC % 0, Sodium 133 L, Potassium 3.2 L, Chloride 101, Carbon Dioxide 26.0, Anion Gap 6, BUN 11, Creatinine 0.48 L, Estim Creat Clear Calc 126.93, Est GFR (MDRD) Af Amer 171, Est GFR (MDRD) Non-Af 142, BUN/Creatinine Ratio 23.0 H, Glucose 101, Calcium 9.1, Phosphorus 2.1 L, Magnesium 2.1, Iron 58, TIBC 229 L, Iron Saturation 25.3, Ferritin 242, Vitamin B12 603, Folate 10.90 Microbiology: Microbiology 04/16/24 12:41 Mucosa - Nose SARS-CoV-2, Influenza & RSV (PCR) - Final Meaningful Use Info Meaningful Use Meaningful Use Diagnoses (Choose all that apply): None applicable Ischemic Stroke Statin Dosing Therapy Reference: STATIN DOSE THERAPY REFERENCE: * Patients > 75 years receive moderate or high dose statin therapy. * Patients 75 years or YOUNGER should receive HIGH intensity statin dose unless contraindicated. You will be required to document reason for non-treatment if statin daily dose does not meet guidelines. HIGH DOSE STATIN THERAPY DAILY Atorvastatin > than or = to 40 mg Rosuvastatin > than or = to 20 mg Amlodipine + Atorvastatin > than or = to 2.5/40 mg Ezetimibe + Simvastatin 10/80 mg Simvastatin 80mg Discharge Plan Admission Admit Date/Time: 04/16/24 19:39 Primary Reason for Your Visit: abdominal pain Attending Provider: Kostas Coffman Primary Care Provider: Rico Lemus Consulting Providers: Rodney Meyer; Saravanan Hidalgo Instructions Forms: Work / School Excuse Additional Instructions / Restrictions: Follow-up with your primary care doctor in the next 1 to 2 weeks. Please have him place a referral to endocrinology for you to follow-up on the adrenal masses seen on your CAT scan here. Please take the pantoprazole twice daily for 12 weeks, and take the sucralfate before meals for the next 2 weeks. Discharge Orders/Prescriptions Prescriptions: New sucralfate 1 gram Tablet 1 g PO 1HR_ACHS 14 Days Qty: 42 0RF pantoprazole 40 mg Tablet,Delayed Release (Dr/Ec) 40 mg PO BID 90 Days Qty: 180 0RF Continued bupropion HCl 150 mg tablet sustained-release 12 hr 150 mg PO BID atorvastatin 80 mg tablet 80 mg PO QHS sertraline 100 mg tablet 100 mg PO DAILY lisinopril-hydrochlorothiazide 10-12.5 mg tablet 1 tab PO DAILY Referrals / Follow Up: Rico Lemus MD [Primary Care Provider] - Disposition Disposition (needs filled in before D/C Order can be placed): Home, Self Care Charges/Coding Visit Charges Inpatient E&M: 82125 Disch Hosp >30min
[2024-04-18 14:00] VITALS: BP 138/79; PULSE 66; RESP 18; TEMP 36.6; O2SAT 94
== END 2024-04-18 15:47 | disposition home or self-care (01) | DRG 384 ==
LOC: ED 19:05 → MS3 20:11
PROVIDERS: Emergency Medicine; Internal Medicine; Internal Medicine Gastroenterology; Admitting Provider Internal Medicine; Emergency Provider Emergency Medicine; PCP Family Medicine; Visit Provider Hospitalist
PROC: 0DJ08ZZ Inspection of Upper Intestinal Tract, Via Natural or Artificial Opening Endoscopic (ICD-10-PCS; CPT 43235; principal; 2024-04-17 13:10)
DX: K26.9 Duodenal ulcer, unspecified as acute or chronic, without hemorrhage or perforation (principal); D17.5 Benign lipomatous neoplasm of intra-abdominal organs; K76.89 Other specified diseases of liver; I10 Essential (primary) hypertension; F32.A Depression, unspecified; F12.10 Cannabis abuse, uncomplicated; E66.9 Obesity, unspecified; E27.9 Disorder of adrenal gland, unspecified; F17.210 Nicotine dependence, cigarettes, uncomplicated; Z68.31 Body mass index [BMI] 31.0-31.9, adult; Z79.899 Other long term (current) drug therapy
CPT/HCPCS: 36415; 71275; 74177; 76705; 80048; 80053; 81001; 82248; 82607; 82728; 82746; 83540; 83550; 83690; 83735; 83880; 84100; 84443; 84484; 85025; 87631; 88305; 93005; 94668; 99285; J7030; J7050; Q9967; A4216; J2405

== ENCOUNTER 2025-02-19 03:11 | Emergency (ER) | payer BC, SELFPAY ==
[2025-02-19 03:13] VITALS: BP 183/123; PULSE 90; RESP 18; TEMP 37; O2SAT 93; BMI 35.8
[2025-02-19 03:18] VITALS: BP 183/123; PULSE 87; RESP 18; TEMP 37; O2SAT 97
--- NOTE | 2025-02-19 03:29 | CT_ITS ---
PROCEDURE: BRAIN/HEAD WITHOUT CONTRAST 02/19/2025 REASON FOR EXAM: SEIZURE TECHNIQUE: BRAIN/HEAD WITHOUT CONTRAST Coronal and Sagittal reconstruction series were provided. One or more dose reduction techniques were used (e.g., Automated exposure control, adjustment of the mA and/or kV according to patient size, use of iterative reconstruction technique. RADIATION DOSE SUMMARY: CTDlvol: 45 mGy DLP: 830 mGycm COMPARISON: No FINDINGS: Mild atrophy. Arterial calcifications. No acute abnormal brain densities. No intracranial hemorrhage. No hydrocephalus or midline shift. No acute scalp or skull pathology. Unremarkable orbits. Clear sinuses. CT/Brain/Head without Contrast IMPRESSION: No acute intracranial findings Reading [facility]
--- NOTE | 2025-02-19 03:29 | CT_ITS ---
PROCEDURE: BRAIN/HEAD WITHOUT CONTRAST 02/19/2025 REASON FOR EXAM: SEIZURE TECHNIQUE: BRAIN/HEAD WITHOUT CONTRAST Coronal and Sagittal reconstruction series were provided. One or more dose reduction techniques were used (e.g., Automated exposure control, adjustment of the mA and/or kV according to patient size, use of iterative reconstruction technique. RADIATION DOSE SUMMARY: CTDlvol: 45 mGy DLP: 830 mGycm COMPARISON: No FINDINGS: Mild atrophy. Arterial calcifications. No acute abnormal brain densities. No intracranial hemorrhage. No hydrocephalus or midline shift. No acute scalp or skull pathology. Unremarkable orbits. Clear sinuses. CT/Brain/Head without Contrast IMPRESSION: No acute intracranial findings Reading [facility]
[2025-02-19] MEDS: 0.9% Normal Saline (1000mL) 1,000 ML 999 ML IV (03:34)
[2025-02-19 03:41] LABS: Hematocrit 41.6 % (37-47); Hemoglobin 14.6 g/dL (12.0-15.0); Immature Granulocytes Count 0.020 X10^3/uL (0.0-0.0); Mean Corp Hgb Conc 35.1 g/dL (32-36); Mean Corpuscular Volume 87.8 fL (81-99); Mean Platelet Vol. 9.9 fl (6.2-12.0); NRBC Flagged by Analyzer 0 % (0-5); Platelet Count 269 K/mm3 (150-450); RBC Distribution Width CV 13.2 % (11.6-14.6); RBC Distribution Width SD 42.2 fl (35.1-43.9); Red Blood Count 4.74 M/mm3 (4.2-5.4); White Blood Count 7.4 K/mm3 (4.4-11.0)
--- OUTSIDE RECORDS SUMMARY | 2025-02-19 03:44 | XMS RPT_ITS | CCD ---
Author Organization [facility] Care Team Providers Care Instrument Repair Technician Name Role Phone Erick Lemus MD Primary Care Provider Erick Lemus MD Primary Care Provider Podlogar RECORD PRODUCER.Aissatou BENAVIDEZ Unavailable [place] RECORD PRODUCER.Jael BENAVIDEZ Unavailable [place] RECORD PRODUCER.Jael BENAVIDEZ Unavailable Mariah CANTRELL, Dr. Gómez Primary Care Provider Dr. Rico Lemus MD Referring Provider Stanley Garcia Attending Provider [place]le RECORD PRODUCER.Jael BENAVIDEZ Unavailable [place] RECORD PRODUCER.Jael BENAVIDEZ Unavailable ERICK LEMUS Primary Care Unavailab le MIRNA, JOHN Referring Unavailabl e MOUNA HIRSCH Attending Unavailable ERICK LEMUS Primary Care Unavailab ERICK Oretz Referring Unavailab le NINA LERNER Attending Unavaila ERICK Aguirre Primary Care Unavailab ERICK Ortez Primary Care Unavailab le BENDMARIJA, NINA MARGO Referring Unavaila ERICK Aguirre Primary Care Unavailab ERICK Ortez Primary Care Unavailab ERICK Ortez Referring Unavailab le GALLEGOMILADIS, JOHN Referring Unavailabl e ERICK LEMUS Primary Care Unavailab le MIRNA, JOHN Referring Unavailabl e ERICK LEMUS Primary Care Unavailab GURVINDER Benavidez Referring Unavailable JENLEY, CHRISTOPHER B Primary Care Unavailab le BURSLEY, CHRISTOPHER B Primary Care Unavailab le BURSLEY, CHRISTOPHER B Referring Unavailab le BURSLEY, CHRISTOPHER B Primary Care Unavailab dawood DIANEEV Referring Unavailable BURSLEY, CHRISTOPHER B Primary Care Unavailab le BURSLEY, CHRISTOPHER B Primary Care Unavailab le PODLOGAISSATOU GONZALEZ Referring Unavailable BENDARAM, NINA ARAGON Attending Unavaila ble JENLEY, CHRISTOPHER B Primary Care Unavailab le BENDARAM, NINA ARAGON Referring Unavaila ble BURSLEY, CHRISTOPHER B Primary Care Unavailab le MIRNA JOHN Referring Unavailabl e JENLEY, CHRISTOPHER B Primary Care Unavailab le GURVINDER GARCIA Referring Unavailable BURSLEY, CHRISTOPHER B Primary Care Unavailab le JOHN BRADLEY Attending UnavailBIANCA Mayes Referring Unavailable MARIAH, CHRISTOPHER B Primary Care Unavailab le MIRNA JOHN Referring Unavailabl e JENLEY, CHRISTOPHER B Referring Unavailab le BURSLEY, CHRISTOPHER B Primary Care Unavailab le BURSLEY, CHRISTOPHER B Primary Care Unavailab le JOHN BRADLEY Attending Unavailabl e JOHN BRADLEY Admitting Unavailabl e JENLEY, CHRISTOPHER B Primary Care Unavailab le PODLOGAR, AISSATOU Attending Unavailable SELF Referring Unavailable MARIAH, CHRISTOPHER B Primary Care Unavailab le PODLOGAISSATOU GONZALEZ Referring Unavailable BENDARAM, NINA ARAGON Attending Unavaila ble BENDARAM, NINA ARAGON Attending Unavaila ble JENLEY, CHRISTOPHER B Primary Care Unavailab Kostas Velázquez Attending Unavailable Rodney Meyer Admitting Unavailable Rodney Meyer Consulting Unavailable Mariah, Rico Primary Care Unavailable Trenton Hidalgo Unavailable Rodney Meyer Admitting Unavailable Rodney Meyer Attending Unavailable Rodney Meyer Consulting Unavailable Bursley, Rico Primary Care Unavailable Kostas Coffman Attending Unavailable Trenton Hidalgo Consulting Unavailable Kostas Coffman Consulting Unavailable Stanley Tavarez Attending Unavailable Trenton Hidalgo Attending Unavailable Bursley, Rico Primary Care Unavailable Bursley, Rico Referring Unavailable Stanley Garcia Attending Unavailable Rico Lemus Primary Care Unavailable Rico Lemus Referring Unavailable Stanley Garcia Attending Unavailable Kostas Coffman Referring Unavailable Friend, Alex Attending Unavailable Allergies Allergy Classification Reported Allergen(s) Allergy Type Date of Onset Reaction(s) Facility (20 sources) FLUoxetine; Translations: [FLUOXETINE] Drug Allergy 02-04-2021 GI Upset [facility] Work Phone: (1 source) FLUoxetine Drug Allergy 01-27-2025 [facility] Repository Medications Current Medications Medication Drug Class(es) Dates Sig (Normalized) Sig (Original) atorvastatin 80 mg oral tablet (20 sources) HMG-CoA Reductase Inhibitor Start: 07-17-2023 End: 05-12-2024 take 1 tablet by mouth once daily at bedtime for hyperlipidemia atorvastatin (LIPITOR) 80 mg tablet Take 1 tablet by mouth daily at bedtime. For cholesterol. 90 tablet 1 11/14/2023 Active Start: 03-16-2023 End: 06-14-2023 take 1 tablet by mouth once daily at bedtime for hyperlipidemia atorvastatin (LIPITOR) 80 mg tablet Take 1 tablet by mouth daily at bedtime. For cholesterol. 90 tablet 0 03/16/2023 Active Start: 02-19-2021 take 1 tablet by sarah th once daily at bedtime for hyperlipidemia atorvastatin (LIPITOR) 80 mg tablet Take 1 tablet by mouth daily at bedtime. For cholesterol. 90 tablet 3 02/19/2021 Active Comment on above: Take 1 tablet by sarah th daily at bedtime. For cholesterol. 12 hr buPROPion hydrochloride 150 mg extended release oral tablet (20 sources) Aminoketone Start: End: take 1 tablet by mouth twice daily buPROPion SR (WELLBUTRIN SR) 150 mg 12 hr tablet Indications: Anxiety with depression Take 1 tablet by mouth two times a day. 180 tablet 1 11/14/2023 Active Start: 03-16-2023 End: 06-14-2023 take 1 tablet by mouth twice daily buPROPion SR (WELLBUTRIN SR) 150 mg 12 hr tablet Indications: Anxiety with depression Take 1 tablet by mouth twice daily. 180 tablet 0 03/16/2023 Active Start: 02-18-2022 take 1 tablet by sarah th twice daily buPROPion SR (WELLBUTRIN SR) 150 mg 12 hr tablet Indications: Anxiety with depression Take 1 tablet by mouth twice daily. 180 tablet 3 02/18/2022 Active Start: 02-19-2021 take 1 tablet by sarah twice daily buPROPion SR (WELLBUTRIN SR) 150 mg 12 hr tablet Take 1 tablet by mouth twice daily. 180 tablet 3 02/19/2021 Active Comment on above: Take 1 tablet by sarah twice daily. Take 1 tablet by sarah two times a day. dexamethasone 1 mg oral tablet (20 sources) Corticosteroid Start: 4 dexAMETHasone (DECADRON) 1 mg tablet Indications: Mass of both adrenal glands (HCC) Take the tablet at 11 pm and go for labs the next morning on fasting at 8 am 1 tablet 06/28/2024 Active hydroCHLOROthiazide 12.5 mg / lisinopril 10 mg oral tablet (20 sources) Thiazide Diuretic, Angiotensin Converting Enzyme Inhibitor Start: 4 Lisinopril-Hydrochloro thiazide 10-12.5 mg tablet Active 1 {tbl} PO DAILY April 16, 2024 12:00am Start: 03-16-2023 End: 12-28-2024 take 10-12.5 mg by mouth once lisinopril-hydroCHLOROthiazide (ZESTORET IC) 10-12.5 mg per tablet Indications: Essential hypertension Take 1 tablet by mouth once daily. 90 tablet 1 07/01/2024 Active Start: 02-18-2022 End: 08-17-2022 take 10-12.5 mg by mouth once lisinopril-hydroCHLOROthiazide (PRINZIDE,ZESTORETIC) 10-12.5 mg per tablet Indications: Essential hypertension Take 1 tablet by mouth once daily. 90 tablet 3 02/18/2022 Active Comment on above: Take 1 tablet by sarah once daily. iv contrast (will be provided with radiology test) (2 sources) Start: 11-05-2024 End: 11-06-2024 iv contrast (will be provided with radiology test) CT Chest W -Inject, intravenously, once for 1 dose.No IV access, insert saline lock prior to the beginning of sedation, infusion, injection of imaging exam. Discontinue saline lock post exam. If Pt. has a central line or IVAD, may access for administration according to line specific nursing protocol. Once exam is complete flush line and de-access according to line specific nursing protocol in the CT contrast administration guidelines link. 1 Each 11/05/2024 11/06/2024 Active Start: 06-28-2024 End: 06-29-2024 iv contrast (will be provide d with radiology test) CT adrenal WO/W Inject, intravenously, once for 1 dose.No IV access, insert saline lock prior to the beginning of sedation, infusion, injection of imaging exam. Discontinue saline lock post exam. If Pt. has a central line or IVAD, may access for administration according to line specific nursing protocol. Once exam is complete flush line and de-access according to line specific nursing protocol in the CT contrast administration guidelines link. 1 Each 06/28/2024 06/29/2024 Active pantoprazole 40 mg delayed release oral tablet (20 sources) Proton Pump Inhibitor Start: 06-13-2024 take 1 tablet by mouth every twelve hours pantoprazole DR (PROTONIX) 40 mg tablet Take 1 tablet by mouth every 12 hours. 06/13/2024 Active Start: 04-18-2024 take 1 tablet by sarah th twice daily Pantoprazole 40 mg Tablet,Delayed Release (Dr/Ec) Active 40 mg PO TWICE A DAY 180 90 April 18, 2024 12:00am sertraline 100 mg oral tablet (20 sources) Serotonin Reuptake Inhibitor Start: 04-13-2023 End: 12-28-2024 take 1 tablet by mouth once daily sertraline (ZOLOFT) 100 mg tablet Indications: Anxiety with depression Take 1 tablet by mouth once daily. 90 tablet 1 07/01/2024 Active Start: 02-18-2022 End: 04-13-2023 take 1 tablet by mouth once daily sertraline (ZOLOFT) 50 mg tablet Indications: Anxiety with depression Take 1 tablet by mouth once daily. 90 tablet 3 02/18/2022 04/13/2023 Discontinued Start: 02-19-2021 take 1 tablet by sarah th once daily sertraline (ZOLOFT) 50 mg tablet Indications: Anxiety with depression Take 1 tablet by mouth once daily. 90 tablet 3 02/19/2021 Active Comment on above: Take 1 tablet by sarah th once daily. traMADol hydrochloride 50 mg oral tablet (1 source) Opioid Agonist Start: 11-21-2024 End: 11-26-2024 take 1 tablet by mouth twice daily traMADol (ULTRAM) 50 mg tablet Indications: Adrenal adenoma, right Take 1 tablet by mouth two times a day for 5 days. 10 tablet 11/21/2024 11/26/2024 Active Completed/Discontinued Medications Medication Drug Class(es) Dates Sig (Normalized) Sig (Original) aspirin 81 mg delayed release oral tablet (5 sources) Platelet Aggregation Inhibitor, Nonsteroidal Anti-inflammatory Drug Start: 06-08-2020 End: 04-13-2023 take 1 tablet by mouth once daily aspirin, enteric coated (ASPIRIN, ENTERIC COATED) 81 mg EC tablet Indications: Essential hypertension Take 1 tablet by mouth once daily. 90 tablet 3 06/08/2020 04/13/2023 Discontinued Comment on above: Take 1 tablet by sarah th once daily. Biotin (20 sources) End: 11-08-2024 take 1 tablet by mouth once daily BIOTIN ORAL Take 1 tablet by mouth once daily. 11/08/2024 Discontinued End: 06-28-2024 biotin 5,000 mcg subl Dissol ve under the tongue. 06/28/2024 Discontinued take 1 tablet by sarah th once daily BIOTIN ORAL Take 1 tablet by mouth once daily. Active Comment on above: Dissolve under the t ongue. bisacodyl 5 mg delayed release oral tablet (9 sources) Stimulant Laxative Start: 02-04-2021 End: 04-13-2023 Bisacodyl (DULCOLAX) 5 mg tab Indications: Screening for colon cancer Use as directed for Miralax / Gatorade Bowel Prep Kit 4 tablet 0 02/18/2022 04/13/2023 Discontinued Comment on above: Use as directed for Miralax / Gatorade Bowel Prep Kit Gatorade Sports Drink (9 sources) Start: 02-18-2022 End: 04-13-2023 Gatorade Sports Drink Indications: Screening for colon cancer Use as directed for Miralax / Gatorade Bowel Prep Kit 0 02/18/2022 04/13/2023 Discontinued Start: 02-18-2022 Gatorade Sport s Drink Indications: Screening for colon cancer Use as directed for Miralax / Gatorade Bowel Prep Kit 0 02/18/2022 Active Start: 02-04-2021 End: 04-13-2023 Gatorade Sports Drink Indica tions: Special screening for malignant neoplasms, colon Use as directed for Miralax / Gatorade Bowel Prep Kit 64 oz 0 02/04/2021 04/13/2023 Discontinued Start: 02-04-2021 Gatorade Sport s Drink Indications: Special screening for malignant neoplasms, colon Use as directed for Miralax / Gatorade Bowel Prep Kit 64 oz 0 02/04/2021 Active Comment on above: Use as directed for Miralax / Gatorade Bowel Prep Kit 24 hr nicotine 0.875 mg/hr transdermal system (2 sources) Cholinergic Nicotinic Agonist Start: 05-15-20 End: 06-28-20 apply 1 dose transdermal route every twenty-four hours nicotine (NICODERM) 21 mg/24 hr Apply 1 Patch as directed every 24 hours. 45 Patch 05/15/2024 06/28/2024 Discontinued penicillin v potassium 250 mg oral tablet (2 sources) Start: 06-21-20 End: 04-16-20 Penicillin V Potassium 250 MG tablet Discontinued 500 mg PO 4 TIMES DAILY 40 June 21, 2017 1:00am April 16, 2024 4:24pm polyethylene glycol 3350 69590 mg powder for oral solution (1 source) Osmotic Laxative Start: 02-05-20 polyethylene glycol 3350 (MIRALAX, GLYCOLAX) 17 gram/dose powder Indications: Special screening for malignant neoplasms, colon Use as directed for Miralax / Gatorade Bowel Prep Kit 238 g 0 02/04/2021 Active Comment on above: Use as directed for Miralax / Gatorade Bowel Prep Kit sucralfate 1000 mg oral tablet (20 sources) Aluminum Complex Start: 04-18-20 End: 11-09-19 25 take 1 tablet by mouth four times daily sucralfate (CARAFATE) 1 gram tablet Take 1 g by mouth four times daily. 04/18/2024 11/08/2024 Discontinued Problems Active Problems Problem Classification Problem Date Documented Da te Episodic/Chronic Administrative/social admission (1 source) Encounter for pre-employment examination; Translations: [Encounter for pre-employment examination] Onset: 01-27-2025 Episodic Anxiety disorders (20 sources) Mixed anxiety and depressive disorder; Translations: [Other specified anxiety disorders] Onset: 09-28-2018 09-28-2018 Chronic Diseases of white blood cells (3 sources) Leukocytosis; Translations: [Elevated white blood cell count, unspecified] Onset: 06-07-2024 04-26-2024 Chronic Disorders of lipid metabolism (20 sources) Mixed hyperlipidemia; Translations: [Mixed hyperlipidemia] Onset: 02-05-2021 02-05-2021 Chronic Essential hypertension (20 sources) Essential hypertension; Translations: [Essential (primary) hypertension] Onset: 09-28-2018 09-28-2018 Chronic Mood disorders (2 sources) Depressive disorder; Translations: [Depression] 04-26-2024 Chronic Mood disorders (1 source) Mood disorders; Translations: [Depression, unspecified] Onset: 06-07-2024 Open wounds of extremities (3 sources) Laceration of left knee; Translations: [Laceration without foreign body, left knee, subsequent encounter] 01-17-2024 Episodic Other aftercare (2 sources) Post-discharge follow-up; Translations: [Encounter for follow-up examination after completed treatment for conditions other than malignant neoplasm] 05-15-2024 Episodic Other and unspecified benign neoplasm (18 sources) Polyp ; Translations: [Benign neoplasm, unspecified site] Onset: 11-08-2024 11-08-2024 Episodic Other and unspecified benign neoplasm (12 sources) Pheochromocytoma; Translations: [Benign neoplasm of right adrenal gland] Onset: 11-20-2024 12-05-2024 Episodic Other and unspecified benign neoplasm (2 sources) Benign neoplasm of right adrenal gland; Translations: [Pheochromocytoma of right adrenal gland] Onset: 11-20-2024 Episodic Other disorders of stomach and duodenum (2 sources) Mass of duodenum; Translations: [Other diseases of stomach and duodenum] 04-26-2024 Episodic Other endocrine disorders (3 sources) Bilateral mass of adrenal glands; Translations: [Other specified disorders of adrenal gland] 05-15-2024 Chronic Other endocrine disorders (11 sources) Adrenal mass; Translations: [Other specified disorders of adrenal gland] 05-15-2024 Chronic Other endocrine disorders (8 sources) Disorder of adrenal gland; Translations: [Disorder of adrenal gland, unspecified] 06-28-2024 Chronic Other endocrine disorders (4 sources) Other specified disorders of adrenal gland; Translations: [Adrenal mass (HCC)] Onset: 05-15-2024 Chronic Other endocrine disorders (2 sources) Disorder of adrenal gland, unspecified; Translations: [Adrenal nodule (HCC)] Onset: 10-14-2024 Chronic Other gastrointestinal disorders (5 sources) Adrenal mass 11-02-2024 Episodic Other injuries and conditions due to external causes (1 source) Contusion; Translations: [Other injury of unspecified body region, initial encounter] 04-13-2023 Episodic Other liver diseases (18 sources) Liver cyst; Translations: [Other specified diseases of liver] Onset: 11-08-2024 11-08-2024 Chronic Other nutritional; endocrine; and metabolic disorders (20 sources) Body mass index 30+ - obesity; Translations: [Obesity, unspecified] 02-04-2021 Chronic Other nutritional; endocrine; and metabolic disorders (20 sources) Obese class I; Translations: [Obesity, Class I, BMI 30-34.9] Onset: 11-05-2024 11-05-2024 Chronic Other nutritional; endocrine; and metabolic disorders (1 source) Obesity, unspecified; Translations: [Obesity, unspecified] Onset: 06-07-2024 Chronic Other screening for suspected conditions (not mental disorders or infectious disease) (20 sources) Patient encounter status; Translations: [Encounter for screening mammogram for malignant neoplasm of breast] Onset: 10-11-2024 Episodic Residual codes; unclassified (20 sources) Tobacco use and exposure - finding; Translations: [Tobacco use] 02-04-2021 Episodic Residual codes; unclassified (2 sources) Tobacco user; Translations: [Tobacco use] 04-26-2024 Episodic Substance-related disorders (20 sources) Smoker; Translations: [Nicotine dependence, unspecified, uncomplicated] Onset: 09-28-2018 09-28-2018 Chronic Substance-related disorders (20 sources) Marijuana user; Translations: [Cannabis use, unspecified, uncomplicated] 02-04-2021 Episodic Unclassified (1 source) Preprocedural examination done 11-11-2024 Unclassified (1 source) Adrenal Onset: 02-11-2025 Unclassified (1 source) Obesity, Class I, BMI 30-34.9; Translations: [Obesity, Class I, BMI 30-34.9] Onset: 11-05-2024 Past or Other Problems Problem Classification Problem Date Documented Da te Episodic/Chronic Abdominal pain (6 sources) Right upper quadrant pain; Translations: [Right upper quadrant pain] Onset: 04-18-2024 04-26-2024 Episodic Diabetes mellitus without complication (20 sources) Hyperglycemia; Translations: [Hyperglycemia, unspecified] Onset: 05-15-2024 05-15-2024 Episodic Fluid and electrolyte disorders (2 sources) Hypokalemia; Translations: [Hypokalemia] Onset: 05-15-2024 05-15-2024 Episodic Other aftercare (1 source) Encounter for follow-up examination after completed treatment for conditions other than malignant neoplasm; Translations: [Hospital discharge follow-up] Onset: 05-15-2024 Episodic Other and unspecified benign neoplasm (2 sources) Adenoma of right adrenal gland; Translations: [Benign neoplasm of right adrenal gland] Onset: 11-20-2024 Resolved: 11-21-2024 11-21-2024 Episodic Other disorders of stomach and duodenum (1 source) Disease of stomach and duodenum, unspecified; Translations: [Disease of stomach and duodenum, unspecified] Onset: 06-07-2024 Episodic Other disorders of stomach and duodenum (1 source) Other diseases of stomach and duodenum; Translations: [Other diseases of stomach and duodenum] Onset: 06-07-2024 Episodic Other infections; including parasitic (20 sources) Personal history of other infectious and parasitic diseases; Translations: [History of COVID-19] Onset: 08-07-2020 02-04-2021 Episodic Residual codes; unclassified (1 source) Tobacco use; Translations: [Tobacco use] Onset: 06-07-2024 Episodic Unclassified (1 source) Patient encounter status 10-11-2024 Results Test Name Value Interpretation Reference Range Facility [facility] 02-13-2025 [facility] Letter Text Normal [facility] Office Visit Reporton 2024 Office Visit Report [facility] [address] [place] [address] OFFICE VISIT Date of Service: 01/27/25 MR#: [id number] Acct: [id number] Patient: VIOLET CHIN Rep #: [id number] : 1965 Provider: MIRTA Thakkar Age/Sex: 59/F [place] [facility] [place]: Signed Intake Vital Signs 01/24/25 14:29 Height 5 ft 3 in Intake Visit Reasons: PE NON DOT DRUG SCREEN/ROSA BRUSH Allergies fluoxetine (From Prozac) Allergy (Verified 01/27/25 15:26) Abd cramps/diarrhea Office Procedures [facility] Billing Sheet Testing Breath Alcohol Test Pre-Employment: Yes Pre-Employment Drug Screen: Yes Pre-Employment PE: Yes 02/11/25 1727 Date Stanley Carterignrenetta Signature: Date (if applicable) CC: Normal [facility] NM PET/CT NEUROENDOCRINE WBo n 01-30-2025 NM PET/CT NEUROENDOCRINE WB * * *Final Report* * * DATE OF EXAM: Jan 30 2025 8:31AM GRP 0094 - NM PET/CT NEUROENDOCRINE WB / PROCEDURE REASON: multiple diagnoses * * * * Physician Interpretation * * * * EXAMINATION: SOMATOSTATIN RECEPTOR PET-CT CLINICAL HISTORY: Bilateral adrenal nodules s/p right adrenalectomy 11/20/2024 with surgical pathology revealing pheochromocytoma. EXAM CATEGORY: Initial treatment strategy. TECHNIQUE: Radiopharmaceutical was administered IV followed by PET imaging from the skull vertex to thighs. Free breathing, low dose CT of the same body region was acquired without IV contrast for attenuation correction and anatomic localization. Unenhanced imaging is limited for the evaluation of some pathology and the acquired CT was not designed to produce diagnostic CT scan quality. Physiologic/non-pathologi c uptake in some body regions could confound or obscure some pathology. * CT Dose-Length Product (DLP): 510 mGy*cm * CT Dose Reduction Employed: Yes * Injection site: Left Forearm-Antecubital * Injected activity: 4.2 mCi * Uptake Time: 61 minutes * Radiopharmaceutical: Cu-64 Dotatate COMPARISON: No prior Dotatate PET/CT available CORRELATION: CT chest 11/15/2024, CT adrenal 10/14/2024 RESULT: REFERENCES: Dotatate uptake serves as a surrogate marker for somatostatin receptor 2 (SSTR2) expression. All reported standardized uptake values represent maximum SUV (SUVmax) per body weight, unless otherwise specified. SUV Reference Values: * Background Liver: SUVmax 7.8 * Background Spleen: SUVmax 39.5 Localizer Images: No additional findings. HEAD AND NECK: Head: No radiotracer avid lesion or mass effect in the intracranial compartment. Aerodigestive Tract: No radiotracer avid lesion. Lymph Nodes: No radiotracer avid lymphadenopathy. Neck Soft Tissues: No radiotracer avid thyroid nodule. CHEST: Lungs and Pleura: No radiotracer avid mass, nodule, or consolidation. Previously described sub-6 mm pulmonary nodules are below PET resolution. No pleural effusion. Lymph Nodes: No radiotracer avid lymphadenopathy. Mediastinum: No radiotracer avid mass. Cardiovascular: Blood pool activity. No pericardial effusion. Normal heart size. Thoracic aortic and coronary artery calcifications. Chest Wall: No radiotracer avid soft tissue lesion. ABDOMEN AND PELVIS: Hepatobiliary: No radiotracer avid lesion. Redemonstrated cysts. Spleen: No radiotracer avid lesion. No splenomegaly. Pancreas: Focal uptake at the tail of the pancreas measures SUV max 9.8 Adrenals: Postsurgical changes of right adrenalectomy. Redemonstrated hypoattenuating nodular thickening of the left adrenal gland. Relatively homogenous left adrenal activity measures SUV max 26.1, likely physiologic, although this limits evaluation for underlying pheochromocytoma. Urinary Tract: Physiologic radiotracer excretion in the renal collecting systems and urinary bladder. No hydronephrosis. GI Tract: No radiotracer avid lesion. No bowel dilation. Peritoneum: No radiotracer avid lesion. No ascites. Lymph Nodes: No radiotracer avid lymphadenopathy. Vasculature: Blood pool activity. Vascular calcifications without an abdominal aortic aneurysm. Pelvic Organs: No radiotracer avid lesion. MUSCULOSKELETAL: Bones: No radiotracer avid lesion. Degenerative changes including presumed degenerative/inflammatory uptake localizing to lower lumbar spine facet arthrosis and right T11-12 anterior osteophytes. Soft Tissues: No radiotracer avid lesion. IMPRESSION: PRIMARY DISEASE SITE: * Postsurgical changes of right adrenalectomy. Redemonstrated hypoattenuating nodular thickening of the left adrenal gland. Relatively homogenous left adrenal activity measures SUV max 26.1, likely physiologic, although this limits evaluation for underlying pheochromocytoma. * Focal uptake at the tail of the pancreas, may represent intrapancreatic splenule versus NET. Further characterization with CT pancreas recommended. MANDI DISEASE: * No SSTR2 expressing abdominopelvic lymphadenopathy. METASTATIC DISEASE: * No SSTR2 expressing osseous metastases. ADDITIONAL FINDINGS: * Previously described sub-6 mm pulmonary nodules are below PET resolution. Continue CT surveillance as warranted clinically. Import Clerk: [facility] Transcribe Date/Time: Jan 30 2025 11:56A Dictated by : NATASHA HARDWICK MD This examination was interpreted and the report reviewed and electronically signed by: NATASHA HARDWICK MD on Jan 30 2025 12:31PM EST [id number] Normal [facility] PET+CT Brain for tau protein on 01-30-2025 IMPRESSION: PRIMARY DISEASE SITE: * Postsurgical changes of right adrenalectomy. Redemonstrated hypoattenuating nodular thickening of the left adrenal gland. Relatively homogenous left adrenal activity measures SUV max 26.1, likely physiologic, although this limits evaluation for underlying pheochromocytoma. * Focal uptake at the tail of the pancreas, may represent intrapancreatic splenule versus NET. Further characterization with CT pancreas recommended. MANDI DISEASE: * No SSTR2 expressing abdominopelvic lymphadenopathy. METASTATIC DISEASE: * No SSTR2 expressing osseous metastases. ADDITIONAL FINDINGS: * Previously described sub-6 mm pulmonary nodules are below PET resolution. Continue CT surveillance as warranted clinically. Import Clerk: [facility] Transcribe Date/Time: Jan 30 2025 11:56A Dictated by : NATASHA HARDWICK MD This examination was interpreted and the report reviewed and electronically signed by: NATASHA HARDWICK MD on Jan 30 2025 12:31PM EST [facility] * * *Final Report* * * DATE OF EXAM: Jan 30 2025 8:31AM GRP 0094 - NM PET/CT NEUROENDOCRINE WB / PROCEDURE REASON: multiple diagnoses * * * * Physician Interpretation * * * * EXAMINATION: SOMATOSTATIN RECEPTOR PET-CT CLINICAL HISTORY: Bilateral adrenal nodules s/p right adrenalectomy 11/20/2024 with surgical pathology revealing pheochromocytoma. EXAM CATEGORY: Initial treatment strategy. TECHNIQUE: Radiopharmaceutical was administered IV followed by PET imaging from the skull vertex to thighs. Free breathing, low dose CT of the same body region was acquired without IV contrast for attenuation correction and anatomic localization. Unenhanced imaging is limited for the evaluation of some pathology and the acquired CT was not designed to produce diagnostic CT scan quality. Physiologic/non-pathologi c uptake in some body regions could confound or obscure some pathology. * CT Dose-Length Product (DLP): 510 mGy*cm * CT Dose Reduction Employed: Yes * Injection site: Left Forearm-Antecubital * Injected activity: 4.2 mCi * Uptake Time: 61 minutes * Radiopharmaceutical: Cu-64 Dotatate COMPARISON: No prior Dotatate PET/CT available CORRELATION: CT chest 11/15/2024, CT adrenal 10/14/2024 RESULT: REFERENCES: Dotatate uptake serves as a surrogate marker for somatostatin receptor 2 (SSTR2) expression. All reported standardized uptake values represent maximum SUV (SUVmax) per body weight, unless otherwise specified. SUV Reference Values: * Background Liver: SUVmax 7.8 * Background Spleen: SUVmax 39.5 Localizer Images: No additional findings. HEAD AND NECK: Head: No radiotracer avid lesion or mass effect in the intracranial compartment. Aerodigestive Tract: No radiotracer avid lesion. Lymph Nodes: No radiotracer avid lymphadenopathy. Neck Soft Tissues: No radiotracer avid thyroid nodule. CHEST: Lungs & Pleura: No radiotracer avid mass, nodule, or consolidation. Previously described sub-6 mm pulmonary nodules are below PET resolution. No pleural effusion. Lymph Nodes: No radiotracer avid lymphadenopathy. Mediastinum: No radiotracer avid mass. Cardiovascular: Blood pool activity. No pericardial effusion. Normal heart size. Thoracic aortic and coronary artery calcifications. Chest Wall: No radiotracer avid soft tissue lesion. ABDOMEN AND PELVIS: Hepatobiliary: No radiotracer avid lesion. Redemonstrated cysts. Spleen: No radiotracer avid lesion. No splenomegaly. Pancreas: Focal uptake at the tail of the pancreas measures SUV max 9.8 Adrenals: Postsurgical changes of right adrenalectomy. Redemonstrated hypoattenuating nodular thickening of the left adrenal gland. Relatively homogenous left adrenal activity measures SUV max 26.1, likely physiologic, although this limits evaluation for underlying pheochromocytoma. Urinary Tract: Physiologic radiotracer excretion in the renal collecting systems and urinary bladder. No hydronephrosis. GI Tract: No radiotracer avid lesion. No bowel dilation. Peritoneum: No radiotracer avid lesion. No ascites. Lymph Nodes: No radiotracer avid lymphadenopathy. Vasculature: Blood pool activity. Vascular calcifications without an abdominal aortic aneurysm. Pelvic Organs: No radiotracer avid lesion. MUSCULOSKELETAL: Bones: No radiotracer avid lesion. Degenerative changes including presumed degenerative/inflammatory uptake localizing to lower lumbar spine facet arthrosis and right T11-12 anterior osteophytes. Soft Tissues: No radiotracer avid lesion. [facility] Provider, [facility] - 01/30/2025 * * *Final Report* * * DATE OF EXAM: Jan 30 2025 8:31AM GRP 0094 - NM PET/CT NEUROENDOCRINE WB / PROCEDURE REASON: multiple diagnoses * * * * Physician Interpretation * * * * EXAMINATION: SOMATOSTATIN RECEPTOR PET-CT CLINICAL HISTORY: Bilateral adrenal nodules s/p right adrenalectomy 11/20/2024 with surgical pathology revealing pheochromocytoma. EXAM CATEGORY: Initial treatment strategy. TECHNIQUE: Radiopharmaceutical was administered IV followed by PET imaging from the skull vertex to thighs. Free breathing, low dose CT of the same body region was acquired without IV contrast for attenuation correction and anatomic localization. Unenhanced imaging is limited for the evaluation of some pathology and the acquired CT was not designed to produce diagnostic CT scan quality. Physiologic/non-pathologi c uptake in some body regions could confound or obscure some pathology. * CT Dose-Length Product (DLP): 510 mGy*cm * CT Dose Reduction Employed: Yes * Injection site: Left Forearm-Antecubital * Injected activity: 4.2 mCi * Uptake Time: 61 minutes * Radiopharmaceutical: Cu-64 Dotatate COMPARISON: No prior Dotatate PET/CT available CORRELATION: CT chest 11/15/2024, CT adrenal 10/14/2024 RESULT: REFERENCES: Dotatate uptake serves as a surrogate marker for somatostatin receptor 2 (SSTR2) expression. All reported standardized uptake values represent maximum SUV (SUVmax) per body weight, unless otherwise specified. SUV Reference Values: * Background Liver: SUVmax 7.8 * Background Spleen: SUVmax 39.5 Localizer Images: No additional findings. HEAD AND NECK: Head: No radiotracer avid lesion or mass effect in the intracranial compartment. Aerodigestive Tract: No radiotracer avid lesion. Lymph Nodes: No radiotracer avid lymphadenopathy. Neck Soft Tissues: No radiotracer avid thyroid nodule. CHEST: Lungs & Pleura: No radiotracer avid mass, nodule, or consolidation. Previously described sub-6 mm pulmonary nodules are below PET resolution. No pleural effusion. Lymph Nodes: No radiotracer avid lymphadenopathy. Mediastinum: No radiotracer avid mass. Cardiovascular: Blood pool activity. No pericardial effusion. Normal heart size. Thoracic aortic and coronary artery calcifications. Chest Wall: No radiotracer avid soft tissue lesion. ABDOMEN AND PELVIS: Hepatobiliary: No radiotracer avid lesion. Redemonstrated cysts. Spleen: No radiotracer avid lesion. No splenomegaly. Pancreas: Focal uptake at the tail of the pancreas measures SUV max 9.8 Adrenals: Postsurgical changes of right adrenalectomy. Redemonstrated hypoattenuating nodular thickening of the left adrenal gland. Relatively homogenous left adrenal activity measures SUV max 26.1, likely physiologic, although this limits evaluation for underlying pheochromocytoma. Urinary Tract: Physiologic radiotracer excretion in the renal collecting systems and urinary bladder. No hydronephrosis. GI Tract: No radiotracer avid lesion. No bowel dilation. Peritoneum: No radiotracer avid lesion. No ascites. Lymph Nodes: No radiotracer avid lymphadenopathy. Vasculature: Blood pool activity. Vascular calcifications without an abdominal aortic aneurysm. Pelvic Organs: No radiotracer avid lesion. MUSCULOSKELETAL: Bones: No radiotracer avid lesion. Degenerative changes including presumed degenerative/inflammatory uptake localizing to lower lumbar spine facet arthrosis and right T11-12 anterior osteophytes. Soft Tissues: No radiotracer avid lesion. IMPRESSION IMPRESSION: PRIMARY DISEASE SITE: * Postsurgical changes of right adrenalectomy. Redemonstrated hypoattenuating nodular thickening of the left adrenal gland. Relatively homogenous left adrenal activity measures SUV max 26.1, likely physiologic, although this limits evaluation for underlying pheochromocytoma. * Focal uptake at the tail of the pancreas, may represent intrapancreatic splenule versus NET. Further characterization with CT pancreas recommended. MANDI DISEASE: * No SSTR2 expressing abdominopelvic lymphadenopathy. METASTATIC DISEASE: * No SSTR2 expressing osseous metastases. ADDITIONAL FINDINGS: * Previously described sub-6 mm pulmonary nodules are below PET resolution. Continue CT surveillance as warranted clinically. Import Clerk: ALIZA Transcribe Date/Time: Jan 30 2025 11:56A Dictated by : NATASHA HARDWICK MD This examination was interpreted and the report reviewed and electronically signed by: NATASHA HARDWICK MD on Jan 30 2025 12:31PM EST [facility] Radiology Study observation (narrative) [facility] PET+CT Brain for tau protein Ordered By: [facility] Provider on 01-30-2025 [facility] Urgent Care Visit Reporton 0 01-27-2025 Urgent Care Visit Report [facility] 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 Accompanied by: Self Allergies fluoxetine (From SWIIM System) Allergy (Verified 01/27/25 15:26) Abd cramps/diarrhea Medications ???Medication ???Instructions ???Recorded ???Confirmed ???Type atorvastatin 80 mg tablet 80 mg PO QHS cholesterol 04/16/24 01/27/25 History bupropion HCl 150 mg tablet,12 hr 150 mg PO BID 04/16/24 01/27/25 H istory sustained-release lisinopril 10 1 tab PO DAILY 04/16/24 01/27/25 H istory mg-hydrochlorothiazide 12.5 mg tablet sertraline 100 mg tablet 100 mg PO DAILY 04/16/24 01/27/25 History pantoprazole 40 mg tablet,delayed 40 mg PO BID 90 days #180 tabs Rx release sucralfate 1 gram tablet 1 g PO 1HR_ACHS 14 days #42 tabs 0 04/18/24 Rx PFSH Medical History (Updated 01/27/25 @ 15:20 by Stanley KIRBY, PA) Physical exam, pre-employment Tobacco abuse Obesity (BMI 30.0-34.9) Adrenal mass Duodenal mass Bleeding tendency Post-menopausal Back pain due to injury High cholesterol Smoker Depression Hypertension Surgical History S/P tubal ligation Social History Smoking Status: Current every day smoker tobacco type: cigarettes HPI HPI Details: VIOLET CHIN, is a 59 F who presents to the office today for Office Procedures Physical Exam Coding PE Coding Pre-employment PE: Yes Coding Level of Care 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 Physical exam, pre-employment Z02.1 Assessment and Plan Assessment and Plan (1) Physical exam, pre-employment: Status: Acute 01/27/25 1529 Date Stanley Flaherty Signature: Date (if applicable) [facility] Office Visit (ENWSTR ) ----- VIOLET CHIN ([id number]) 1965 F Date Time Provider Department 12/31/24 4:00 PM NINA LERNER ENWSTR During your visit today, we recorded the following information about you: Pulse Respiration Blood pressure Weight 71/minute 19/minute 138/84 91 kg Height 1.626 m Nina Lerner MD 01/23/2025 7:02 PM Signed [facility] Follow up note Patient referred by: Aissatou Mac APRN. [employer] Chief compliant: B/L Adrenal nodules History of Present Illness: Ms. Violet Chin is a 58 year old female coming today for follow up of bilateral adrenal nodules. S/p right adrenalectomy on 11/20/24 with surgical pathology revealing Pheochromocytoma She also has a hx of duodenal ulcers and is on protonix, carafate for the same Initial visit 06/28/2024. History in brief, she underwent CT abdomen for abdominal pain when adrenal nodules were incidentally found in bilateral adrenal glands. On work up, nodules were concerning for excess cortisol secretion although unsure laterality but due to size of the right sided adrenal nodule being more than 4 cm, right adrenalectomy was performed by Dr. Lopez, and she is following up today first time post surgery Past Medical History: PAST MEDICAL HISTORY Diagnosis Date Anxiety and depression History of COVID-19 08/2020 HTN (hypertension) Lumbar herniated disc s/p laminectomy-pain free Marijuana use Mixed hyperlipidemia Obesity (BMI 30-39.9) Prediabetes Tobacco use Surgical History: PAST SURGICAL HISTORY Procedure Laterality Date SNGL 1986 SNGL 1987 SNGL 2000 EYE SURGERY HX 1972 correct lazy eye LAMINECTOMY W/O FFD / VERT SEG LUMBAR 2007 LAPAROSCOPIC ADRENALECTOMY Right 11/20/2024 TUBAL LIGATION 2001 Family Medical History: FAMILY HISTORY Problem Relation Age of Onset COPD Mother No Known Problems Father No Known Problems Sister No Known Problems Sister No Known Problems Brother No Known Problems Brother Cancer Maternal Grandmother No Known Problems Daughter No Known Problems Daughter No Known Problems Son Adrenal Insufficiency No Family History Social History: Social History Tobacco Use Smoking status: Every Day Current packs/day: 0.50 Average packs/day: 0.5 packs/day for 30.0 years (15.0 ttl pk-yrs) Types: Cigarettes Passive exposure: Current Smokeless tobacco: Never Tobacco comments: 10-12 cigarettes/day Vaping Use Vaping status: Never Used Substance Use Topics Alcohol use: No Drug use: Not Currently Types: Marijuana Comment: occasionally- 2 times a year Allergies: ALLERGIES Allergen Reactions Prozac [Fluoxetine] GI Upset Current medications: Current Outpatient Medications Medication Sig lisinopril-hydroCHLOROthi azide (ZESTORETIC) 10-12.5 mg per tablet Take 1 tablet by mouth once daily. sertraline (ZOLOFT) 100 mg tablet Take 1 tablet by mouth once daily. buPROPion SR (WELLBUTRIN SR) 150 mg 12 hr tablet Take 1 tablet by mouth two times a day. atorvastatin (LIPITOR) 80 mg tablet Take 1 tablet by mouth daily at bedtime. For cholesterol. pantoprazole DR (PROTONIX) 40 mg tablet Take 1 tablet by mouth every 12 hours. (Patient not taking: Reported on 12/31/2024) No current facility-administered medications for this visit. Review of Systems: 10 point ROS was reviewed and negative unless indicated in the HPI Physical exam: BP 138/84 (BP Site: Right Arm, BP Position: Sitting, BP Cuff Size: Large Adult) Pulse 71 Resp 19 Ht 162.6 cm (5' 4) Wt 91 kg (200 lb 9.6 oz) SpO2 98% BMI 34.43 kg/m? General Appearance: Well appearing, alert, in no acute distress, well-hydrated, well nourished, obese body habitus Skin: Skin color, texture, turgor normal, no suspicious rashes or lesions. Eyes: Anicteric sclera. Extraocular movements are intact. Neck: Supple, no adenopathy; thyroid symmetric, normal size, no bruits. Lungs: unlabored breathing on room air Heart: Regular leatha and rhythm Abdomen: no typical concerning features noted, obese abdomen Extremities: No deformities, edema, skin discoloration, clubbing or cyanosis. Musculoskeletal: No joint swelling, deformity, spinal tenderness Peripheral Pulses: Normal. Neurologic: Gait normal. Previous laboratory results: Latest Ref Rng 10/25/2024 10/28/2024 Hours Collected hr 24 Total Volume mL 1675 Epinephrine, Ur per vol ug/L 4 Norepinephrine, Ur per vol ug/L 23 Dopamine, Ur per vol ug/L 170 Epinephrine, Ur ratio to PROPERTY MANAGEMENT INTERN 0 - 20 ug/g PROPERTY MANAGEMENT INTERN 6 Epinephrine, Ur 24hr 1 - 14 ug/d 7 Norepinephrine, Ur ratio to PROPERTY MANAGEMENT INTERN 0 - 45 ug/g PROPERTY MANAGEMENT INTERN 37 Norepinephrine, Ur 24hr 14 - 120 ug/d 39 Dopamine, Ur ratio to PROPERTY MANAGEMENT INTERN 0 - 250 ug/g PROPERTY MANAGEMENT INTERN 270 (H) Creatinine, Urine Per Volume mg/dL 63 Creatinine, Urine Per 24H 500 - 1400 mg/d 1055 Dopamine, Ur 24hr 71 - 485 (more content not included)... Normal [facility] DBT Breast - bilateral diagn ostic for implanton 12-18-2024 IMPRESSION: Finding 1: The asymmetry in the lateral right breast, posterior depth is probably benign. Follow-up with diagnostic mammogram is recommended in 6 months. Finding 2: Lesion in the left breast at 4 o'clock, 2 cm from the nipple is probably benign. Follow-up with diagnostic mammogram and ultrasound is recommended in 6 months. BI-RADS Category 3: Probably Benign RISK: Based on the Tyrer-Cuzick (TC) risk assessment model, this patient has a 3.6% lifetime risk of developing breast cancer, meaning they are at average risk for developing breast cancer. However, this is only an estimate based on available history provided on the patient's questionnaire. We encourage all patients to talk with their providers about these results, further recommendations for managing breast health, and appropriate supplemental screening options if the patient has dense breast tissue. Interpreting Radiologist: Trenton Hernández M.D. Electronically signed on: 12/18/2024 Import Clerk: PETER Transcribe Date/Time: Dec 18 2024 8:04A Dictated by: TRENTON HERNÁNDEZ MD This examination was interpreted and the report reviewed and electronically signed by: TRENTON HERNÁNDEZ MD on Dec 18 2024 9:50AM [facility] * * *Final Report* * * DATE OF EXAM: Dec 18 2024 8:22AM [facility] 0627 - [place] DIAG W GERALD WES / PROCEDURE REASON: Abnormal mammogram * * * * Physician Interpretation * * * * RESULT: [place] [address] #[id number] - [place] DIAG W GERALD WES #[id number] - [facility] US BREAST LTD #[id number] - [facility] US BREAST LTD RT HISTORY: 59 year-old patient seen for diagnostic evaluation of the finding(s) described on prior mammogram in both breasts. Patient states no personal history of breast cancer. COMPARISON STUDIES: The present examination has been compared to a prior imaging study dated 10/11/2024 (mammogram). MAMMOGRAM TECHNIQUE: The study was acquired using full field digital technology and interpreted from soft copy. Digital Breast Tomosynthesis (DBT) images were obtained and used to assist in the interpretation of this examination. MAMMOGRAM FINDINGS: There are scattered areas of fibroglandular density. Finding 1: There is an asymmetry with indistinct margins in the lateral right breast, posterior depth. Finding 2: There is a focal asymmetry measuring 0.4 cm with obscured margins in the lower outer quadrant of the left breast, middle depth. ULTRASOUND TECHNIQUE: Targeted ultrasound of the indicated area was performed. Pope scale images were saved. ULTRASOUND FINDINGS: Finding 1: There are no suspicious sonographic findings to correspond with the asymmetry. Finding 2: Ultrasound demonstrates an oval parallel lesion with circumscribed margins measuring 0.4 cm in the left breast at 4 o'clock, 2 cm from the nipple. This lesion is closer to the nipple than expected on the mammogram and may be incidental and not correlate with the mammographic finding. DIVISION OF RADIOLOGY Provider, [facility] - 12/18/2024 * * *Final Report* * * DATE OF EXAM: Dec 18 2024 8:22AM [facility] 0627 - [place] DIAG W GERALD WES / PROCEDURE REASON: Abnormal mammogram * * * * Physician Interpretation * * * * [place] [address] #[id number] - [place] DIAG W GERALD WES #[id number] - [facility] US BREAST LTD LT #[id number] - [facility] US BREAST LTD RT HISTORY: 59 year-old patient seen for diagnostic evaluation of the finding(s) described on prior mammogram in both breasts. Patient states no personal history of breast cancer. COMPARISON STUDIES: The present examination has been compared to a prior imaging study dated 10/11/2024 (mammogram). MAMMOGRAM TECHNIQUE: The study was acquired using full field digital technology and interpreted from soft copy. Digital Breast Tomosynthesis (DBT) images were obtained and used to assist in the interpretation of this examination. MAMMOGRAM FINDINGS: There are scattered areas of fibroglandular density. Finding 1: There is an asymmetry with indistinct margins in the lateral right breast, posterior depth. Finding 2: There is a focal asymmetry measuring 0.4 cm with obscured margins in the lower outer quadrant of the left breast, middle depth. ULTRASOUND TECHNIQUE: Targeted ultrasound of the indicated area was performed. Pope scale images were saved. ULTRASOUND FINDINGS: Finding 1: There are no suspicious sonographic findings to correspond with the asymmetry. Finding 2: Ultrasound demonstrates an oval parallel lesion with circumscribed margins measuring 0.4 cm in the left breast at 4 o'clock, 2 cm from the nipple. This lesion is closer to the nipple than expected on the mammogram and may be incidental and not correlate with the mammographic finding. IMPRESSION IMPRESSION: Finding 1: The asymmetry in the lateral right breast, posterior depth is probably benign. Follow-up with diagnostic mammogram is recommended in 6 months. Finding 2: Lesion in the left breast at 4 o'clock, 2 cm from the nipple is probably benign. Follow-up with diagnostic mammogram and ultrasound is recommended in 6 months. BI-RADS Category 3: Probably Benign RISK: Based on the Tyrer-Cuzick (TC) risk assessment model, this patient has a 3.6% lifetime risk of developing breast cancer, meaning they are at average risk for developing breast cancer. However, this is only an estimate based on available history provided on the patient's questionnaire. We encourage all patients to talk with their providers about these results, further recommendations for managing breast health, and appropriate supplemental screening options if the patient has dense breast tissue. Interpreting Radiologist: Trenton Hernández M.D. Electronically signed on: 12/18/2024 Import Clerk: PETER Transcribe Date/Time: Dec 18 2024 8:04A Dictated by: TRENTON HERNÁNDEZ MD This examination was interpreted and the report reviewed and electronically signed by: TRENTON HERNÁNDEZ MD on Dec 18 2024 9:50AM EST [facility] DIAG W GERALD BILon 2024 [facility] DIAG W GERALD WES * * *Final Report* * * DATE OF EXAM: Dec 18 2024 8:22AM [facility] 0627 - [facility] DIAG W GERALD WES / PROCEDURE REASON: Abnormal mammogram * * * * Physician Interpretation * * * * RESULT: [address] [address] [place] [address] #[id number] - [facility] DIAG W GERALD WES #[id number] - [facility] US BREAST LTD LT #[id number] - [facility] US BREAST LTD RT HISTORY: 59 year-old patient seen for diagnostic evaluation of the finding(s) described on prior mammogram in both breasts. Patient states no personal history of breast cancer. COMPARISON STUDIES: The present examination has been compared to a prior imaging study dated 10/11/2024 (mammogram). MAMMOGRAM TECHNIQUE: The study was acquired using full field digital technology and interpreted from soft copy. Digital Breast Tomosynthesis (DBT) images were obtained and used to assist in the interpretation of this examination. MAMMOGRAM FINDINGS: There are scattered areas of fibroglandular density. Finding 1: There is an asymmetry with indistinct margins in the lateral right breast, posterior depth. Finding 2: There is a focal asymmetry measuring 0.4 cm with obscured margins in the lower outer quadrant of the left breast, middle depth. ULTRASOUND TECHNIQUE: Targeted ultrasound of the indicated area was performed. Pope scale images were saved. ULTRASOUND FINDINGS: Finding 1: There are no suspicious sonographic findings to correspond with the asymmetry. Finding 2: Ultrasound demonstrates an oval parallel lesion with circumscribed margins measuring 0.4 cm in the left breast at 4 o'clock, 2 cm from the nipple. This lesion is closer to the nipple than expected on the mammogram and may be incidental and not correlate with the mammographic finding. IMPRESSION: Finding 1: The asymmetry in the lateral right breast, posterior depth is probably benign. Follow-up with diagnostic mammogram is recommended in 6 months. Finding 2: Lesion in the left breast at 4 o'clock, 2 cm from the nipple is probably benign. Follow-up with diagnostic mammogram and ultrasound is recommended in 6 months. BI-RADS Category 3: Probably Benign RISK: Based on the Tyrer-Cuzick (TC) risk assessment model, this patient has a 3.6% lifetime risk of developing breast cancer, meaning they are at average risk for developing breast cancer. However, this is only an estimate based on available history provided on the patient's questionnaire. We encourage all patients to talk with their providers about these results, further recommendations for managing breast health, and appropriate supplemental screening options if the patient has dense breast tissue. Interpreting Radiologist: Trenton Hernández M.D. Electronically signed on: 12/18/2024 Import Clerk: PETER Transcribe Date/Time: Dec 18 2024 8:04A Dictated by: TRENTON HERNÁNDEZ MD This examination was interpreted and the report reviewed and electronically signed by: TRENTON HERNÁNDEZ MD on Dec 18 2024 9:50AM EST [id number] Normal [facility] BREAST LTD LTon 12-18 [facility] US BREAST LTD LT * * *Final Report* * * DATE OF EXAM: Dec 18 2024 9:37AM WRU 0593 - [facility] US BREAST LTD LT / PROCEDURE REASON: Abnormal mammogram * * * * Physician Interpretation * * * * [place] [address] #[id number] - [facility] DIAG W GERALD WES #[id number] - [facility] US BREAST LTD LT #[id number] - [facility] US BREAST LTD RT HISTORY: 59 year-old patient seen for diagnostic evaluation of the finding(s) described on prior mammogram in both breasts. Patient states no personal history of breast cancer. COMPARISON STUDIES: The present examination has been compared to a prior imaging study dated 10/11/2024 (mammogram). MAMMOGRAM TECHNIQUE: The study was acquired using full field digital technology and interpreted from soft copy. Digital Breast Tomosynthesis (DBT) images were obtained and used to assist in the interpretation of this examination. MAMMOGRAM FINDINGS: There are scattered areas of fibroglandular density. Finding 1: There is an asymmetry with indistinct margins in the lateral right breast, posterior depth. Finding 2: There is a focal asymmetry measuring 0.4 cm with obscured margins in the lower outer quadrant of the left breast, middle depth. ULTRASOUND TECHNIQUE: Targeted ultrasound of the indicated area was performed. Pope scale images were saved. ULTRASOUND FINDINGS: Finding 1: There are no suspicious sonographic findings to correspond with the asymmetry. Finding 2: Ultrasound demonstrates an oval parallel lesion with circumscribed margins measuring 0.4 cm in the left breast at 4 o'clock, 2 cm from the nipple. This lesion is closer to the nipple than expected on the mammogram and may be incidental and not correlate with the mammographic finding. IMPRESSION: Finding 1: The asymmetry in the lateral right breast, posterior depth is probably benign. Follow-up with diagnostic mammogram is recommended in 6 months. Finding 2: Lesion in the left breast at 4 o'clock, 2 cm from the nipple is probably benign. Follow-up with diagnostic mammogram and ultrasound is recommended in 6 months. BI-RADS Category 3: Probably Benign RISK: Based on the Tyrer-Cuzick (TC) risk assessment model, this patient has a 3.6% lifetime risk of developing breast cancer, meaning they are at average risk for developing breast cancer. However, this is only an estimate based on available history provided on the patient's questionnaire. We encourage all patients to talk with their providers about these results, further recommendations for managing breast health, and appropriate supplemental screening options if the patient has dense breast tissue. Interpreting Radiologist: Trenton Hernández M.D. Electronically signed on: 12/18/2024 Import Clerk: PETER Transcribe Date/Time: Dec 18 2024 9:26A Dictated by : TRENOTN HERNÁNDEZ MD This examination was interpreted and the report reviewed and electronically signed by: TRENTON HERNÁNDEZ MD on Dec 18 2024 9:50AM EST [id number] Normal [facility] US BREAST LTD RTon 12-18 [facility] US BREAST LTD RT * * *Final Report* * * DATE OF EXAM: Dec 18 2024 9:25AM WRU 0594 - [facility] Resource [employer] BREAST LTD RT / PROCEDURE REASON: Abnormal mammogram * * * * Physician Interpretation * * * * [place] [address] #[id number] - [facility] DIAG W GERALD WES #[id number] - [facility] [employer] BREAST LTD LT #[id number] - [facility] [employer] BREAST LTD RT HISTORY: 59 year-old patient seen for diagnostic evaluation of the finding(s) described on prior mammogram in both breasts. Patient states no personal history of breast cancer. COMPARISON STUDIES: The present examination has been compared to a prior imaging study dated 10/11/2024 (mammogram). MAMMOGRAM TECHNIQUE: The study was acquired using full field digital technology and interpreted from soft copy. Digital Breast Tomosynthesis (DBT) images were obtained and used to assist in the interpretation of this examination. MAMMOGRAM FINDINGS: There are scattered areas of fibroglandular density. Finding 1: There is an asymmetry with indistinct margins in the lateral right breast, posterior depth. Finding 2: There is a focal asymmetry measuring 0.4 cm with obscured margins in the lower outer quadrant of the left breast, middle depth. ULTRASOUND TECHNIQUE: Targeted ultrasound of the indicated area was performed. Pope scale images were saved. ULTRASOUND FINDINGS: Finding 1: There are no suspicious sonographic findings to correspond with the asymmetry. Finding 2: Ultrasound demonstrates an oval parallel lesion with circumscribed margins measuring 0.4 cm in the left breast at 4 o'clock, 2 cm from the nipple. This lesion is closer to the nipple than expected on the mammogram and may be incidental and not correlate with the mammographic finding. IMPRESSION: Finding 1: The asymmetry in the lateral right breast, posterior depth is probably benign. Follow-up with diagnostic mammogram is recommended in 6 months. Finding 2: Lesion in the left breast at 4 o'clock, 2 cm from the nipple is probably benign. Follow-up with diagnostic mammogram and ultrasound is recommended in 6 months. BI-RADS Category 3: Probably Benign RISK: Based on the Tyrer-Cuzick (TC) risk assessment model, this patient has a 3.6% lifetime risk of developing breast cancer, meaning they are at average risk for developing breast cancer. However, this is only an estimate based on available history provided on the patient's questionnaire. We encourage all patients to talk with their providers about these results, further recommendations for managing breast health, and appropriate supplemental screening options if the patient has dense breast tissue. Interpreting Radiologist: Trenton Hernández M.D. Electronically signed on: 12/18/2024 Import Clerk: PETER Transcribe Date/Time: Dec 18 2024 9:16A Dictated by : TRENTON HERNÁNDEZ MD This examination was interpreted and the report reviewed and electronically signed by: TRENTON HERNÁNDEZ MD on Dec 18 2024 9:50AM EST [id number] Normal [facility] No Panel InformationOrdered By: [facility] Provider on 12-18-2024 [facility] No Panel Informationon 12-18 Radiology Study observation (narrative) [facility] US Breast - left limitedon 0 12-18-2024 IMPRESSION: Finding 1: The asymmetry in the lateral right breast, posterior depth is probably benign. Follow-up with diagnostic mammogram is recommended in 6 months. Finding 2: Lesion in the left breast at 4 o'clock, 2 cm from the nipple is probably benign. Follow-up with diagnostic mammogram and ultrasound is recommended in 6 months. BI-RADS Category 3: Probably Benign RISK: Based on the Tyrer-Cuzick (TC) risk assessment model, this patient has a 3.6% lifetime risk of developing breast cancer, meaning they are at average risk for developing breast cancer. However, this is only an estimate based on available history provided on the patient's questionnaire. We encourage all patients to talk with their providers about these results, further recommendations for managing breast health, and appropriate supplemental screening options if the patient has dense breast tissue. Interpreting Radiologist: Trenton Hernández M.D. Electronically signed on: 12/18/2024 Import Clerk: PETER Transcribe Date/Time: Dec 18 2024 9:26A Dictated by : TRENTON HERNÁNDEZ MD This examination was interpreted and the report reviewed and electronically signed by: TRENTON HENRÁNDEZ MD on Dec 18 2024 9:50AM [facility] DIV[facility] RAD[facility]OLOGY * * *Final Report* * * DATE OF EXAM: Dec 18 2024 9:37AM U 0593 - [facility] [employer] BREAST LTD LT / PROCEDURE REASON: Abnormal mammogram * * * * Physician Interpretation * * * * [place] [address] #[id number] - [facility] DIAG W GERALD WES #[id number] - [facility] [employer] BREAST LTD LT #[id number] - [facility] BREAST LTD RT HISTORY: 59 year-old patient seen for diagnostic evaluation of the finding(s) described on prior mammogram in both breasts. Patient states no personal history of breast cancer. COMPARISON STUDIES: The present examination has been compared to a prior imaging study dated 10/11/2024 (mammogram). MAMMOGRAM TECHNIQUE: The study was acquired using full field digital technology and interpreted from soft copy. Digital Breast Tomosynthesis (DBT) images were obtained and used to assist in the interpretation of this examination. MAMMOGRAM FINDINGS: There are scattered areas of fibroglandular density. Finding 1: There is an asymmetry with indistinct margins in the lateral right breast, posterior depth. Finding 2: There is a focal asymmetry measuring 0.4 cm with obscured margins in the lower outer quadrant of the left breast, middle depth. ULTRASOUND TECHNIQUE: Targeted ultrasound of the indicated area was performed. Pope scale images were saved. ULTRASOUND FINDINGS: Finding 1: There are no suspicious sonographic findings to correspond with the asymmetry. Finding 2: Ultrasound demonstrates an oval parallel lesion with circumscribed margins measuring 0.4 cm in the left breast at 4 o'clock, 2 cm from the nipple. This lesion is closer to the nipple than expected on the mammogram and may be incidental and not correlate with the mammographic finding. DIVISION OF RADIOLOGY Provider, Berenice parnell Toone - 12/18/2024 * * *Final Report* * * DATE OF EXAM: Dec 18 2024 9:37AM WRU 0593 - [facility] [employer] BREAST LTD LT / PROCEDURE REASON: Abnormal mammogram * * * * Physician Interpretation * * * * [address] [address] [place] [address] #[id number] - [facility] PRASANNA W GERALD WES #[id number] - [facility] [employer] BREAST LTD LT #[id number] - [facility] [employer] BREAST LTD RT HISTORY: 59 year-old patient seen for diagnostic evaluation of the finding(s) described on prior mammogram in both breasts. Patient states no personal history of breast cancer. COMPARISON STUDIES: The present examination has been compared to a prior imaging study dated 10/11/2024 (mammogram). MAMMOGRAM TECHNIQUE: The study was acquired using full field digital technology and interpreted from soft copy. Digital Breast Tomosynthesis (DBT) images were obtained and used to assist in the interpretation of this examination. MAMMOGRAM FINDINGS: There are scattered areas of fibroglandular density. Finding 1: There is an asymmetry with indistinct margins in the lateral right breast, posterior depth. Finding 2: There is a focal asymmetry measuring 0.4 cm with obscured margins in the lower outer quadrant of the left breast, middle depth. ULTRASOUND TECHNIQUE: Targeted ultrasound of the indicated area was performed. Pope scale images were saved. ULTRASOUND FINDINGS: Finding 1: There are no suspicious sonographic findings to correspond with the asymmetry. Finding 2: Ultrasound demonstrates an oval parallel lesion with circumscribed margins measuring 0.4 cm in the left breast at 4 o'clock, 2 cm from the nipple. This lesion is closer to the nipple than expected on the mammogram and may be incidental and not correlate with the mammographic finding. IMPRESSION IMPRESSION: Finding 1: The asymmetry in the lateral right breast, posterior depth is probably benign. Follow-up with diagnostic mammogram is recommended in 6 months. Finding 2: Lesion in the left breast at 4 o'clock, 2 cm from the nipple is probably benign. Follow-up with diagnostic mammogram and ultrasound is recommended in 6 months. BI-RADS Category 3: Probably Benign RISK: Based on the Tyrer-Cuzick (TC) risk assessment model, this patient has a 3.6% lifetime risk of developing breast cancer, meaning they are at average risk for developing breast cancer. However, this is only an estimate based on available history provided on the patient's questionnaire. We encourage all patients to talk with their providers about these results, further recommendations for managing breast health, and appropriate supplemental screening options if the patient has dense breast tissue. Interpreting Radiologist: Trenton Hernández M.D. Electronically signed on: 12/18/2024 Import Clerk: PETER Transcribe Date/Time: Dec 18 2024 9:26A Dictated by : TRENTON HERNÁNDEZ MD This examination was interpreted and the report reviewed and electronically signed by: TRENTON HERNÁNDEZ MD on Dec 18 2024 9:50AM EST [facility] US Breast - right limitedon 12-18-2024 IMPRESSION: Finding 1: The asymmetry in the lateral right breast, posterior depth is probably benign. Follow-up with diagnostic mammogram is recommended in 6 months. Finding 2: Lesion in the left breast at 4 o'clock, 2 cm from the nipple is probably benign. Follow-up with diagnostic mammogram and ultrasound is recommended in 6 months. BI-RADS Category 3: Probably Benign RISK: Based on the Tyrer-Cuzick (TC) risk assessment model, this patient has a 3.6% lifetime risk of developing breast cancer, meaning they are at average risk for developing breast cancer. However, this is only an estimate based on available history provided on the patient's questionnaire. We encourage all patients to talk with their providers about these results, further recommendations for managing breast health, and appropriate supplemental screening options if the patient has dense breast tissue. Interpreting Radiologist: Trenton Hernández M.D. Electronically signed on: 12/18/2024 Import Clerk: PETER Transcriall Date/Time: Dec 18 2024 9:16A Dictated by : TRENTON HERNÁNDEZ MD This examination was interpreted and the report reviewed and electronically signed by: TRENTON HERNÁNDEZ MD on Dec 18 2024 9:50AM [facility] DIV[facility] OF RADIOLOGY * * *Final Report* * * DATE OF EXAM: Dec 18 2024 9:25AM [facility] 0594 - [facility] US BREAST LTD RT / PROCEDURE REASON: Abnormal mammogram * * * * Physician Interpretation * * * * [address] [address] #[id number] - [facility] DIAPage W GERALD WES #[id number] - [facility] US BREAST LTD LT #[id number] - [facility] US BREAST LTD RT HISTORY: 59 year-old patient seen for diagnostic evaluation of the finding(s) described on prior mammogram in both breasts. Patient states no personal history of breast cancer. COMPARISON STUDIES: The present examination has been compared to a prior imaging study dated 10/11/2024 (mammogram). MAMMOGRAM TECHNIQUE: The study was acquired using full field digital technology and interpreted from soft copy. Digital Breast Tomosynthesis (DBT) images were obtained and used to assist in the interpretation of this examination. MAMMOGRAM FINDINGS: There are scattered areas of fibroglandular density. Finding 1: There is an asymmetry with indistinct margins in the lateral right breast, posterior depth. Finding 2: There is a focal asymmetry measuring 0.4 cm with obscured margins in the lower outer quadrant of the left breast, middle depth. ULTRASOUND TECHNIQUE: Targeted ultrasound of the indicated area was performed. Pope scale images were saved. ULTRASOUND FINDINGS: Finding 1: There are no suspicious sonographic findings to correspond with the asymmetry. Finding 2: Ultrasound demonstrates an oval parallel lesion with circumscribed margins measuring 0.4 cm in the left breast at 4 o'clock, 2 cm from the nipple. This lesion is closer to the nipple than expected on the mammogram and may be incidental and not correlate with the mammographic finding. DIVISION OF RADIOLOGY Provider, Shena Carmelo [facility] - 12/18/2024 * * *Final Report* * * DATE OF EXAM: Dec 18 2024 9:25AM [facility] 0594 - [facility] US BREAST LTD RT / PROCEDURE REASON: Abnormal mammogram * * * * Physician Interpretation * * * * [facility] [address] [place], [place] [id number] #[id number] - [facility] PRASANNA DUARTE WES #[id number] - [facility] BREAST LTD LT #[id number] - [facility] BREAST LTD RT HISTORY: 59 year-old patient seen for diagnostic evaluation of the finding(s) described on prior mammogram in both breasts. Patient states no personal history of breast cancer. COMPARISON STUDIES: The present examination has been compared to a prior imaging study dated 10/11/2024 (mammogram). MAMMOGRAM TECHNIQUE: The study was acquired using full field digital technology and interpreted from soft copy. Digital Breast Tomosynthesis (DBT) images were obtained and used to assist in the interpretation of this examination. MAMMOGRAM FINDINGS: There are scattered areas of fibroglandular density. Finding 1: There is an asymmetry with indistinct margins in the lateral right breast, posterior depth. Finding 2: There is a focal asymmetry measuring 0.4 cm with obscured margins in the lower outer quadrant of the left breast, middle depth. ULTRASOUND TECHNIQUE: Targeted ultrasound of the indicated area was performed. Pope scale images were saved. ULTRASOUND FINDINGS: Finding 1: There are no suspicious sonographic findings to correspond with the asymmetry. Finding 2: Ultrasound demonstrates an oval parallel lesion with circumscribed margins measuring 0.4 cm in the left breast at 4 o'clock, 2 cm from the nipple. This lesion is closer to the nipple than expected on the mammogram and may be incidental and not correlate with the mammographic finding. IMPRESSION IMPRESSION: Finding 1: The asymmetry in the lateral right breast, posterior depth is probably benign. Follow-up with diagnostic mammogram is recommended in 6 months. Finding 2: Lesion in the left breast at 4 o'clock, 2 cm from the nipple is probably benign. Follow-up with diagnostic mammogram and ultrasound is recommended in 6 months. BI-RADS Category 3: Probably Benign RISK: Based on the Tyrer-Cuzick (TC) risk assessment model, this patient has a 3.6% lifetime risk of developing breast cancer, meaning they are at average risk for developing breast cancer. However, this is only an estimate based on available history provided on the patient's questionnaire. We encourage all patients to talk with their providers about these results, further recommendations for managing breast health, and appropriate supplemental screening options if the patient has dense breast tissue. Interpreting Radiologist: Trenton Hernández M.D. Electronically signed on: 12/18/2024 Import Clerk: PETER Transcribe Date/Time: Dec 18 2024 9:16A Dictated by : TRENTON HERNÁNDEZ MD This examination was interpreted and the report reviewed and electronically signed by: TRENTON HERNÁNDEZ MD on Dec 18 2024 9:50AM EST [facility] Deni 12-04-2024 CNPN Telephone (ENSUMN) ----- VIOLET CHIN ([id number]) 1965 F Date Time Provider Department 12/04/24 JOHN BRADLEY During your visit today, we recorded the following information about you: Melanie Palomino 12/04/2024 7:26 AM Signed This form is used for MAIN CAMPUS APPOINTMENTS ONLY. Is this request for a [place] PET scan appointment? Yes: Parent Partner: Melanie Palomino Who do we call to schedule this appointment? Patient Requesting Staff Dr. John Hopper Area Code + Phone/Pager: [phone] Romero PET Orders (A delay in scheduling will result if the orders are not present at time of review): Internal ADDITIONAL ACTION MAY BE REQUIRED IF PATIENTS OON INSURANCE OR SELF PAY COVERAGE HAS NOT BEEN CLEARED FOR REQUESTED APPOINTMENT. Scheduling: DAWNA: As soon as insurance will allow What account will this PET appointment be linked to? P/F Type of PET: Oncology: Are there additional diagnostic CT scans required to be done at time of PET scan? No Is the request for a PET MR ? No What account will diagnostic testing appointment be linked to? P/F Will the patient need anesthesia? 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 Labs: na Clinical Notes Reviewed: 11-05-24 Endo Date of last: na Additional Information/Imaging: N/A Is this the first Dotat[place] PET: Yes (Please schedule as requested by patient or office) Positive Scan Schedule at place of last (DOS) [facility] or [facility] Negative Scan Schedule at ANY Dotat[place] site requested Isotope used: [facility] Copper [address] [place]/ [place] (NETSPOT) Dotatate Dotatate [id number] (54cCi) Gallium Dotatate (NetSpot) E27.8, E27.9, Auth#: Date Range: MD METZ: JOHN BRADLEY [id number] Member ID: Gene [id number] Site/Contact: Sadia, told to call [phone] [facility] Case/Ref#: Notes: called pt for the phone # off insurance card, stated she is scheduled for her PET/Ct Neuroendocrine scan in [place] on 12-16-24. Route to: P PET DIETITIAN ASSISTANT Natasha Prasad 12/12/2024 12:10 PM Addendum Linden Cole 12/20/2024 8:59 AM Signed Linden Cole 12/20/2024 9:00 AM Signed Jan, Patient was scheduled on December 16 for PET Dotatate scan but was cancelled d/t being scheduled wrong. Please see snippet in previous message. Please contact patient to reschedule scan. Thank you, Linden Cole, DAQUANN RN [facility] Natasha Prasad 12/23/2024 6:46 AM Signed Jan, We do not schedule for [place] and do not handle incorrectly scheduled appointments for that site. If you had answered the PET questions correctly and said NO to being scheduled at it would have given you the numbers to call for the respective sites not scheduled by . Please contact [place] to reschedule the appointment correctly. [facility] [phone] Thank, Little This form is used for MAIN CAMPUS APPOINTMENTS ONLY. Is this request for a [facility] [place] PET scan appointment? No. If this appointment is for [facility] call [phone], [facility] [phone] other non - [facility] [place] sites call [facility] [facility] at [phone] or [phone]. Allergies As of Date: 12/04/2024 Noted Allergy Reaction PROZAC (FLUOXETINE) 02/04/2021 8 - GI Upset Date Reviewed: 11/20/2024 Reviewed by: María Elena Pop, RN - Fully Assessed Reason for Visit: Nm Pet Request [[id number]] Prescriptions as of 12/25/2024 - lisinopril-hydroCHLOROthi azide (ZESTORETIC) 10-12.5 mg per tablet Take 1 tablet by mouth once daily. - sertraline (ZOLOFT) 100 mg tablet Take 1 tablet by mouth once daily. - pantoprazole DR (PROTONIX) 40 mg tablet Take 1 tablet by mouth every 12 hours. - buPROPion SR (WELLBUTRIN SR) 150 mg 12 hr tablet Take 1 tablet by mouth two times a day. - atorvastatin (LIPITOR) 80 mg tablet Take 1 tablet by mouth daily at bedtime. For cholesterol. 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 Normal [facility] Kareem 04-25-2 025 CATECHOLAMINE INTERPRETATION PLASMA See Note Normal [facility] Comment on above: Order Comment: Speci men Type: BLOOD SPECIMENOrdering Facility: [facility] Address: [address] [place], [place] [id number] Result Comment: INTE RPRETIVE INFORMATION: Catecholamines Panel, Plasma Small increases in catecholamines (less than 2 times the upper reference limit) are usually the result of physiological stimuli, drugs, or improper specimen collection. Significant elevation of one or more catecholamines (2 or more times the upper reference limit) is associated with an increased probability of a neuroendocrine tumor. Measurement of plasma or urine fractionated metanephrines provides better diagnostic sensitivity than measurement of catecholamines. Lower catecholamine concentrations are observed in specimens collected from supine adults. To convert to picograms per milliliter (pg/mL), multiply the reported concentration for Dopamine by 0.153, Epinephrine by 0.183, and Norepinephrine by 0.169. Access complete set of age- and/or gender-specific reference intervals for this test in the [facility] Test Directory ([employer]). This test was developed and its performance characteristics determined by [facility]. It has not been cleared or approved by the [place] Food and Drug Administration. This test was performed in a CLIA certified laboratory and is intended for clinical purposes. Performed By: [facility] [address] [place] [address] Weatherization Coordinator: Iván Mcgee MD, PhD CLIA Number: [id number] Performed By: #### P LCAT ####[facility]ORATORIESCLIA [id number] [place] [address] DOPAMINE 146 pmol/L Normal <=240 [facility] Comment on above: Order Comment: Speci men Type: BLOOD SPECIMENOrdering Facility: [facility] Address: [address] [place] [address] Result Comment: INTE RPRETIVE INFORMATION: Dopamine Seated (15 min) less than or equal to 240 pmol/L Supine (30 min) less than or equal to 240 pmol/L Performed By: #### P LCAT ####[facility] LABORATORIESCLIA [id number] [place] [address] EPINEPHRINE (P) 102 pmol/L Normal <=330 [facility] Comment on above: Order Comment: Speci men Type: BLOOD SPECIMENOrdering Facility: [facility] Address: [address] [place] [address] Result Comment: INTE RPRETIVE INFORMATION:Epinephrine Seated (15 min) less than or equal to 330 pmol/L Supine (30 min) less than or equal to 265 pmol/L Performed By: #### P LCAT ####[facility]IA [id number] [place] [address] NOREPINEPHRINE 2859 pmol/L Normal 6366-3322 [facility] Comment on above: Order Comment: Speci men Type: BLOOD SPECIMENOrdering Facility: [facility] Address: [address] [place] [address] Result Comment: INTE RPRETIVE INFORMATION: Norepinephrine Seated (15 min) 1050 - 4800 pmol/L Supine (30 min) 680 - 3100 pmol/L Performed By: #### P LCAT ####[facility] LABORATORIESCLIA [id number] [place] [address] METANEPHRINES, FREE PLASMAon 11-29-2024 METANEPHRINE, PLASMA 27 pg/mL Normal 12-67 [facility] Comment on above: Order Comment: Speci men Type: BLOOD SPECIMENOrdering Facility: [facility] Address: [address] [place] [address] Result Comment: Refe rence Ranges: Hypertensive adult > or = 18 yrs old: 12-72 pg/mL Normotensive adult > or = 18 yrs old: 12-67 pg/mL Normotensive children < 18 yrs old: 10-95 pg/mL Performed By: #### P METAN ####[facility] LABCLIA [id number] [place] [address] [place] NORMETANEPHRINE, PLASMA 94 pg/mL Normal 18-101 [facility] Comment on above: Order Comment: Jacquii men Type: BLOOD SPECIMENOrdering Facility: [facility] Address: [address] [place] [address] Result Comment: Refe rence Ranges: Hypertensive adult > or = 18 yrs old: 24-145 pg/mL Normotensive adult > or = 18 yrs old: 18-101 pg/mL Normotensive children < 18 yrs old: 22-83 pg/mL Methyldopa may cause false elevation of normetanephrine levels in this assay. If patient is on methyldopa, interpret results with caution. Performed By: #### P METAN ####[facility] LABCLIA [id number] [address] [place] CNPNon 11-28-2024 CNPN Telephone (MMPRAD) ----- VIOLET CHIN ([id number]) 1965 F Date Time Provider Department 11/28/24 JOHN BRADLEY MMPRAD During your visit today, we recorded the following information about you: John Bradley MD 11/28/2024 2:01 PM Signed Called Violet Chin to inform about the results. The results showed: FINAL DIAGNOSIS A. 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 - Extra-adrenal invasion is present. 11/26/2024 at 0949 EDT Diagnosis Comment This case is interpreted in collaboration with Dr. Ling Talavera. 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 As typical in adults, the neuroblastic component is somewhat difficult to classify using conventional pediatric criteria. 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 However, there are scattered areas of necrosis such that we cannot entirely exclude small foci representing nodular subtype with complete necrosis. Dr. Iván Lemon has also reviewed the neuroblastic component and concurs. The pheochromocytoma component of the neoplasm stains negative for SF1 and positive for chromogranin, GATA3, and synaptophysin. The sustentacular supporting cells stain positive for S100. The pheochromocytoma has histologic features which are associated with aggressive behavior with a PASS score of 7 (invasion into periadrenal adipose tissue - 2 points, diffuse/large nested growth - 2 points, tumor spindling - 2 points, profound nuclear pleomorphism - 1 point). The neoplasm comes to within 0.1 mm of the capsular margin, but no definitive tumor is present at the margin. Gross Description A. Adrenal Gland, Right, Resection Received in formalin labeled as adrenal gland is an adrenal gland measuring 10.5 x 6.5 x 3.4 cm and weighing 85.7 g. The surface is inked black. There is a palpable bulging mass measuring 5.2 x 4.2 x 3.5 cm. The mass is sands-pink, well encapsulated and demonstrates an area of sands-pope to sands-yellow dusky discoloration composing approximately 60% of the cut surfaces. A recognizable portion of the adrenal gland is stretched along the aspect of the mass. The mass appears confined to the capsule. A photograph is obtained. Patient Coordinator sections are submitted as follows: A1 periphery of mass with possible extension beyond capsule (see photograph) A2 sales representative wire rope section of mass with necrosis A3-A4 mass with adjacent normal and black inked capsular soft tissue margin A5 additional section of mass with black inked capsular soft tissue margin A6 uninvolved adrenal gland Discussed with the patient unusual finding as preop catecholamines were normal and metanephrines were just slightly elevated. Given findings we will repeat functional workup and refer to medical genetics. She is scheduled to see Dr. Lerner. I explained the findings and further steps. All the questions were answered to the patient's satisfaction. 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 #:[id number] METANEPHRINES 24H UR [SQUMETAN] Order #: [id number]. #:[id number] CREATINE 24 HR UR [JXUMLS04] Order #: [id number]. #:[id number] CONSULT TO MEDICAL GENETICS - CANCER [[id number]] Order #: [id number]: 1 FUTURE Prescriptions as of 11/28/2024 - lisinopril-hydroCHLOROthi azide (ZESTORETIC) 10-12.5 mg per tablet Take 1 tablet by mouth once daily. - sertraline (ZOLOFT) 100 mg tablet Take 1 tablet by mouth once daily. - pantoprazole DR (PROTONIX) 40 mg tablet Take 1 tablet by mouth every 12 hours. - buPROPion SR (WELLBUTRIN SR) 150 mg 12 hr tablet Take 1 tablet by mouth two times a day. - atorvastatin (LIPITOR) 80 mg tablet Take 1 tablet by mouth daily at bedtime. For cholesterol. Problem List As Of Date 11/28/2024 Noted Resolved Essential hypertension [I10] 09/28/2018 Anxiety with depression [F41.8] 09/28/2018 Smoker [F17.200] 09/28/2018 Obesity (BMI 30-39.9) [E66.9] History of COVID-19 [Z86.16] 08/2020 Marijuana use [F12.90] Tobacco use [Z72.0] Mixed hyperlipidemia [E78.2] Obesity, Class I, BMI 30-34.9 [E66.811] 11/05/2024 Prediabetes [R73.03] 11/08/2024 Liver cyst [K76.89] (more content not included)... [facility] 11-22-[address] [facility] Telephone (ENSUMN) ----- VIOLET CHIN ([id number]) 1965 F Date Time Provider Department 11/22/24 JOHN BRADLEY During your visit today, we recorded the following information about you: Allergies As of Date: 11/22/2024 Noted Allergy Reaction PROZAC (FLUOXETINE) 02/04/2021 8 - GI Upset Date Reviewed: 11/20/2024 Reviewed by: María Elena Pop, RN - Fully Assessed Reason for Visit: Follow Up Phone Call [[id number]] Prescriptions as of 11/22/2024 - traMADol (ULTRAM) 50 mg tablet Take 1 tablet by mouth two times a day for 5 days. - lisinopril-hydroCHLOROthi azide (ZESTORETIC) 10-12.5 mg per tablet Take 1 tablet by mouth once daily. - sertraline (ZOLOFT) 100 mg tablet Take 1 tablet by mouth once daily. - pantoprazole DR (PROTONIX) 40 mg tablet Take 1 tablet by mouth every 12 hours. - buPROPion SR (WELLBUTRIN SR) 150 mg 12 hr tablet Take 1 tablet by mouth two times a day. - atorvastatin (LIPITOR) 80 mg tablet Take 1 tablet by mouth daily at bedtime. For cholesterol. 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] 11/08/2024 Adrenal adenoma, right [D35.01] 11/20/2024 11/21/2024 Encounter Status:Closed by LINDEN COLE on 11/22/24 Normal [facility] ACTH Plas-mCncon 11-21-2024 Corticotropin (P) [Mass/Vol] 8.1 pg/mL Normal 7.2-63.3 [facility] Comment on above: Order Comment: Speci men Type: BLOOD SPECIMENOrdering Facility: [facility] Address: [address] [place] [address] Result Comment: ACTH Reference Range: 7-10 am: 7.2 - 63.3 pg/mL Performed By: #### 2 141-0 ####[facility] LABCLIA [id number] [place] [address] [place] Basic metabolic 2000 panelon 11-21-2024 Anion gap [Moles/Vol] 13 mmol/L Normal 8-15 [facility] Comment on above: Order Comment: Speci men Type: BLOOD SPECIMENOrdering Facility: [facility] Address: [address] [place] [address] Performed By: #### 2 143-6, 52765-1 ####[facility] LABCLIA [id number] [place] [address] [place] Calcium [Mass/Vol] 9.5 mg/dL Normal 8.5-10.2 [facility] Comment on above: Order Comment: Speci men Type: BLOOD SPECIMENOrdering Facility: [facility] Address: [address] [place] [address] Performed By: #### 2 143-6, 18874-7 ####[facility] LABCLIA [id number] [place] [address] [place] Chloride [Moles/Vol] 94 mmol/L Low 98-107 [facility] Comment on above: Order Comment: Speci men Type: BLOOD SPECIMENOrdering Facility: [facility] Address: [address] [place] [address] Performed By: #### 2 143-6, 01947-3 ####[facility] LABCLIA [id number] [facility] [address] [address] [place] CO2 [Moles/Vol] 26 mmol/L Normal 22-30 [facility] Comment on above: Order Comment: Speci men Type: BLOOD SPECIMENOrdering Facility: [facility] Address: [address] [place], [place] [address] Performed By: #### 2 143-6, 94282-2 ####[facility] LABIA [id number] [address] [address] [place] Creatinine [Mass/Vol] 0.57 mg/dL Low 0.58-0.96 [facility] Comment on above: Order Comment: Speci men Type: BLOOD SPECIMENOrdering Facility: [facility] Address: [address] [place] [address] Performed By: #### 2 143-6, 48666-1 ####[facility] [id number] [place] [address] [place] Creatinine and Glomerular filtration rate.predicted panel (S/P/Bld) 105 mL/min/1.73m??? Normal >=60 [facility] Comment on above: Order Comment: Specdelfino men Type: BLOOD SPECIMENOrdering Facility: [facility] Address: [address] [place] [address] Result Comment: Yesenia mated Glomerular Filtration Rate (eGFR) is calculated using the 2020 CKD-EPI creatinine equation. This equation utilizes serum creatinine, sex, and age as parameters. The creatinine assay has traceable calibration to isotope dilution-mass spectrometry. Refer to KDIGO guidelines for clinical interpretation. In patients with unstable renal function, e.g. those with acute kidney injury, the eGFR may not accurately reflect actual GFR. Performed By: #### 2 143-6, 31602-4 ####[facility] LABIA [id number] [address] [address] [place] Glucose [Mass/Vol] 130 mg/dL High 74-99 [facility] Comment on above: Order Comment: Maurilio men Type: BLOOD SPECIMENOrdering Facility: [facility] Address: [address] [place] [address] Result Comment: The [place] Diabetes Association (ADA) provides guidance for cutoff values for fasting glucose and random glucose. The ADA defines fasting as no caloric intake for at least 8 hours. Fasting plasma glucose results between 100 to 125 mg/dL indicate increased risk for diabetes (prediabetes). Fasting plasma glucose results greater than or equal to 126 mg/dL meet the criteria for diagnosis of diabetes. In the absence of unequivocal hyperglycemia, results should be confirmed by repeat testing. In a patient with classic symptoms of hyperglycemia or hyperglycemic crisis, random plasma glucose results greater than or equal to 200 mg/dL meet the criteria for diagnosis of diabetes. Reference: Standards of Medical Care in Diabetes 2016, [place] [employer] Association. Diabetes Care. 2016.39(Suppl 1). Performed By: #### 2 143-6, 85312-2 ####[facility] LABCLIA [id number] [place] [address] [place] Potassium [Moles/Vol] 3.9 mmol/L Normal 3.7-5.1 [facility] Comment on above: Order Comment: Speci men Type: BLOOD SPECIMENOrdering Facility: [facility] Address: [address] [place] [address] Performed By: #### 2 143-, 42461-0 ####[facility] LABCLIA [id number] [place] [address] [place] Sodium [Moles/Vol] 133 mmol/L Low 136-144 [facility] Comment on above: Order Comment: Speci men Type: BLOOD SPECIMENOrdering Facility: [facility] Address: [address] [place] [address] Performed By: #### 2 143-6, 94434-8 ####[facility] LABCLIA [id number] [place] [address] [place] Urea nitrogen [Mass/Vol] 11 mg/dL Normal 7-21 [facility] Comment on above: Order Comment: Speci men Type: BLOOD SPECIMENOrdering Facility: [facility] Address: [address] [place] [address] Performed By: #### 2 143-6, 73489-8 ####[facility] LABCLIA [id number] [place] [address] [place] CBC panel Auto (Bld)on 11-21 Erythrocyte distribution width (RBC) [Ratio] 13.7 % Normal 11.5-15.0 [facility] Comment on above: Order Comment: Speci men Type: BLOOD SPECIMENOrdering Facility: [facility] Address: [address] [place] [address] Performed By: #### 5 8410-2 ####[facility] LABIA [id number] [place] [address] [place] Hematocrit (Bld) [Volume fraction] 39.5 % Normal 36.0-46.0 [facility] Comment on above: Order Comment: Speci men Type: BLOOD SPECIMENOrdering Facility: [facility] Address: [address] [place] [address] Performed By: #### 5 8410-2 ####[facility] LABIA [id number] [address] [place] Hemoglobin (Bld) [Mass/Vol] 13.7 g/dL Normal 11.5-15.5 [facility] Comment on above: Order Comment: Speci men Type: BLOOD SPECIMENOrdering Facility: [facility] Address: [address] [place] [address] Performed By: #### 5 8410-2 ####[facility] LABIA [id number] [place] [address] [place] MCH (RBC) [Entitic mass] 30.5 pg Normal 26.0-34.0 [facility] Comment on above: Order Comment: Speci men Type: BLOOD SPECIMENOrdering Facility: [facility] Address: [address] [place] [address] Performed By: #### 5 8410-2 ####[facility] LABIA [id number] [place] [address] [place] MCHC (RBC) [Mass/Vol] 34.7 g/dL Normal 30.5-36.0 [facility] Comment on above: Order Comment: Speci men Type: BLOOD SPECIMENOrdering Facility: [facility] Address: [address] [place] [address] Performed By: #### 5 8410-2 ####[facility] LABCLIA [id number] [place] [address] [place] MCV (RBC) [Entitic vol] 88.0 fL Normal 80.0-100.0 [facility] Comment on above: Order Comment: Speci men Type: BLOOD SPECIMENOrdering Facility: [facility] Address: [address] [place] [address] Performed By: #### 5 8410-2 ####[facility] LABIA [id number] [place] [address] [place] Nucleated RBC (Bld) [#/Vol] 10*3/uL Normal <0.01 [facility] Comment on above: Order Comment: Speci men Type: BLOOD SPECIMENOrdering Facility: [facility] Address: [address] [place] [address] Performed By: #### 5 8410-2 ####[facility] LABIA [id number] [place] [address] [place] Platelet mean volume (Bld) [Entitic vol] 9.6 fL Normal 9.0-12.7 [facility] Comment on above: Order Comment: Speci men Type: BLOOD SPECIMENOrdering Facility: [facility] Address: [address] [place] [address] Performed By: #### 5 8410-2 ####[facility] LABIA [id number] [place] [address] [place] Platelets (Bld) [#/Vol] 280 10*3/uL Normal 150-400 [facility] Comment on above: Order Comment: Speci men Type: BLOOD SPECIMENOrdering Facility: [facility] Address: [address] [place] [address] Performed By: #### 5 8410-2 ####[facility] LABCLIA [id number] [place] [id number] [place] RBC (Bld) [#/Vol] 4.49 10*6/uL Normal 3.90-5.20 [facility] Comment on above: Order Comment: Speci men Type: BLOOD SPECIMENOrdering Facility: [facility] Address: [address] [place] [address] Performed By: #### 5 8410-2 ####[facility] LABIA [id number] [place] [address] [place] WBC (Bld) [#/Vol] 10.34 10*3/uL Normal 3.70-11.00 [facility] Comment on above: Order Comment: Speci men Type: BLOOD SPECIMENOrdering Facility: [facility] Address: [address] [place] [address] Performed By: #### 5 8410-2 ####[facility] LABIA [id number] [address] [place] Cortdu SerPl-mCncon 11-22-19 25 Cortisol [Mass/Vol] 14.2 ug/dL Normal 4.8-19.5 [facility] Comment on above: Order Comment: Speci men Type: BLOOD SPECIMENOrdering Facility: [facility] Address: [address] [place] [address] Result Comment: Prov ided reference range is from 6-10 AM sample collection time. Cortisol Reference Range: 6-10 AM = 4.8-19.5 ug/dL, 4-8 PM = 2.5-11.9 ug/dL Performed By: #### 2 143-6, 56256-5 ####[facility] LABIA [id number] [place] [id number] [place] ANES POSTPROC EVALon 025 ANES POSTPROC EVAL HNO ID: [id number] Author: DOROTEO ANGULO DO Service: ? Author Type: Anesthesiologist Type: Anesthesia Postprocedure Evaluation Filed: 11/20/2024 18:21 Note Text: POST ANESTHESIA EVALUATION NOTE : 1965 Procedure Summary Date: 11/20/24 Room / Location: [address] [facility] Anesthesia Start: 1316 Anesthesia Stop: 1642 Procedure: LAPAROSCOPIC ADRENALECTOMY (Right: Abdomen) Diagnosis: Adrenal mass (HCC) (Adrenal mass (HCC) [E27.8]) Surgeons: John Bradley MD Responsible Provider: Doroteo Angulo DO Anesthesia Type: general ASA Status: 3 Anesthesia Type: general Airway Type: ETT Last Vitals Vitals Value Taken Time BP 141/75 11/20/24 1800 Temp 36 ?C (96.8 ?F) 11/20/24 1800 Pulse 66 11/20/24 1802 Resp 14 11/20/24 1802 SpO2 96 % 11/20/24 1802 Vitals shown include unfiled device data. Post Anesthesia Patient Status Patient Evaluation: PACU. PACU/ICU Patient Condition: stable. Anticipated Disposition: inpatient floor planned admission. Neurological Status: aware and responsive. Pulmonary Status: breathing comfortably on supplemental oxygen Airway Control: returned to baseline unsupported. Cardiovascular Status: stable. Pain Management: clinically adequate Postoperative Hydration: acceptable. Intraoperative Events: no significant anesthesia events Post Operative Nausea/Vomiting Status: no significant post operative nausea or vomiting Recommendation: continue current plan of care. Anesthesia Observations No Documentation SIGNATURE: Doroteo Angulo DO PATIENT NAME: Violet Chin DATE: November 20, 2024 TIME: 6:21 PM CSN: [id number] Normal [facility] ANES PRE-OPon 11-20-2024 ANES PRE-OP HNO ID: [id number] Author: BRENDA TARIQ DO Service: ? Author Type: Physician Type: Anesthesia Preprocedure Evaluation Filed: 11/20/2024 12:28 Note Text: ANESTHESIOLOGY DAY OF SURGERY NOTE : 1965 Procedure Information Date/Time: 11/20/24 1241 Procedure: LAPAROSCOPIC ADRENALECTOMY (Right: Abdomen) [address] Surgeons: John Bradley MD Estimated body mass index is 32.61 kg/m? as calculated from the following: Height as of 11/08/24: 162.6 cm (5' 4). Weight as of 11/08/24: 86.2 kg (190 lb). Most recent hematocrit and potassium results: Hematocrit 40.2 11/08/2024 Potassium 4.2 11/08/2024 Relevant Problems CARDIO (+) Essential hypertension PULMONARY (+) Tobacco use Cardiovascular (+) Mixed hyperlipidemia Psychiatry (+) Marijuana use Other (+) Obesity (BMI 30-39.9) I - PHYSICAL EVALUATION AIRWAY Patient intubated: No. Tracheostomy tube not present Mallampati: II. TM distance: >3 FB. Neck ROM: full ROM without neurological symptoms. Mouth opening: adequate. Short neck: no. Thick neck: no DENTAL Dental findings: teeth intact and edentulous. Dentures, upper: complete. Dentures, lower: complete. II - ANESTHESIA PLAN ASA Score: 3 Anesthetic Plan: general Airway type: ETT NPO Status: adequate Beta Piper Monitoring Plan Monitoring plan: standard ASA and invasive hemodynamic monitoring. Monitoring method: arterial Line Post Procedure Analgesic Plan Postoperative analgesic plan: per surgical service, parenteral or oral opioids and multimodal analgesia. Informed Consent Anesthetic risks, benefits, alternatives, personnel and consent discussed: yes. Patient / Responsible Libertarian agrees to proceed: yes Patient / Surrogate agrees to blood products: Yes Significant changes in the patient condition since the History and Physical, not otherwise documented in primary service progress note: no. Potential Anesthesia issues that may suggest increased risk of complications or contraindication to planned procedure: none. No vitals data found for the desired time range. No current facility-administered medications on file as of 11/20/2024. Outpatient Medications as of 11/20/2024 Medication Sig lisinopril-hydroCHLOROthi azide (ZESTORETIC) 10-12.5 mg per tablet Take 1 tablet by mouth once daily. sertraline (ZOLOFT) 100 mg tablet Take 1 tablet by mouth once daily. pantoprazole DR (PROTONIX) 40 mg tablet Take 1 tablet by mouth every 12 hours. dexAMETHasone (DECADRON) 1 mg tablet Take the tablet at 11 pm and go for labs the next morning on fasting at 8 am buPROPion SR (WELLBUTRIN SR) 150 mg 12 hr tablet Take 1 tablet by mouth two times a day. atorvastatin (LIPITOR) 80 mg tablet Take 1 tablet by mouth daily at bedtime. For cholesterol. I have interviewed and examined the patient. I have reviewed the medical record and/or the pre-anesthesia evaluation, pertinent labs, and test results. This contains updated information obtained within 48 hours of Surgery/Procedure. SIGNATURE: Brenda Tariq DO PATIENT NAME: Violet Chin DATE: November 20, 2024 TIME: 11:14 AM CSN: [id number] Normal [facility] BRIEF OP NOTon 11-20-2024 BRIEF OP NOT HNO ID: [id number] Author: ALBER JAMIL MD Service: Endocrine Surgery Author Type: Physician Type: Brief Op Note Filed: 11/20/2024 16:50 Note Text: Brief Operative Note Patient Name: Violet Chin LOG ID: [id number] Surgery/Procedure Date: 11/20/2024 Surgeon(s)/Proceduralist( s) and Counter Person(s): Surgeons and Role: * John Bradley MD - Primary * Gomez Rodríguez MD - Assisting * Alber Jamil MD - Fellow Procedure(s): laparoscopic right adrenalectomy Incision/Procedure Start Time: 1:50 PM Incision Close/Procedure End Time: 4:11 PM Anesthesia: General Findings: 5cm right adrenal mass Input: Crystalloid: See anesthesia record Output: See anesthesia record Estimated Blood Loss: 25 mL Specimens: ID Type Source Tests Collected by Time Destination A : Tissue Adrenal Gland, Right, Resection SURGICAL PATHOLOGY John Bradley MD 11/20/2024 3:59 PM Implants: * No implants in log * Drains: none Wound Classification: Class 1, operative wound clean, non-traumatic, with no inflammation encountered, no break in technique, gastrointestinal and genitor-urinary tracts not entered Pre-Op/Pre-Procedure Diagnosis: right adrenal mass Post-Op/Post-Procedure Diagnosis: same Post-Op Plan: Recover in PACU. SIGNATURE: Alber Jamil MD DATE: 11/20/24 TIME: 4:49 PM Normal [facility] CBC W Auto Differential pane l (Bld)on 11-20-2024 Basophils (Bld) [#/Vol] 0.07 10*3/uL Normal <0.11 [facility] Comment on above: Order Comment: Speci men Type: BLOOD SPECIMENOrdering Facility: [facility] Address: [address] [place] [address] Performed By: #### 5 7021-8 ####[facility] LABCLIA [id number] [facility] [address] [place] Basophils/100 WBC (Bld) 0.4 % Normal [facility] Comment on above: Order Comment: Speci men Type: BLOOD SPECIMENOrdering Facility: [facility] Address: [address] [place] [address] Performed By: #### 5 7021-8 ####[facility] LABCLIA [id number] [address], [place] [address] [place] Differential cell count method Nom (Bld) Auto Normal [facility] Comment on above: Order Comment: Speci men Type: BLOOD SPECIMENOrdering Facility: [facility] Address: [address] [place] [address] Performed By: #### 5 7021-8 ####[facility] LABCLIA [id number] [place] [address] [place] Eosinophils (Bld) [#/Vol] 0.10 10*3/uL Normal <0.46 [facility] Comment on above: Order Comment: Speci men Type: BLOOD SPECIMENOrdering Facility: [facility] Address: [address] [place] [address] Performed By: #### 5 7021-8 ####[facility] LABCLIA [id number] [place] [address] [place] Eosinophils/100 WBC (Bld) 0.6 % Normal [facility] Comment on above: Order Comment: Speci men Type: BLOOD SPECIMENOrdering Facility: [facility] Address: [address] [place] [address] Performed By: #### 5 7021-8 ####[facility] LABCLIA [id number] [place] [address] [place] Erythrocyte distribution width (RBC) [Ratio] 13.7 % Normal 11.5-15.0 [facility] Comment on above: Order Comment: Speci men Type: BLOOD SPECIMENOrdering Facility: [facility] Address: [address] [place] [address] Performed By: #### 5 7021-8 ####[facility] LABIA [id number] [place] [address] [place] Hematocrit (Bld) [Volume fraction] 38.6 % Normal 36.0-46.0 [facility] Comment on above: Order Comment: Speci men Type: BLOOD SPECIMENOrdering Facility: [facility] Address: [address] [place] [address] Performed By: #### 5 7021-8 ####[facility] LABIA [id number] [place] [address] [place] Hemoglobin (Bld) [Mass/Vol] 13.0 g/dL Normal 11.5-15.5 [facility] Comment on above: Order Comment: Speci men Type: BLOOD SPECIMENOrdering Facility: [facility] Address: [address] [place] [address] Performed By: #### 5 7021-8 ####[facility] LABIA [id number] [place] [address] [place] Immature granulocytes (Bld) [#/Vol] 0.12 10*3/uL High <0.10 [facility] Comment on above: Order Comment: Speci men Type: BLOOD SPECIMENOrdering Facility: [facility] Address: [address] [place] [address] Performed By: #### 5 7021-8 ####[facility] LABIA [id number] [place] [address] [place] Immature granulocytes/100 WBC (Bld) 0.7 % Normal [facility] Comment on above: Order Comment: Speci men Type: BLOOD SPECIMENOrdering Facility: [facility] Address: [address] [place] [address] Performed By: #### 5 7021-8 ####[facility] LABCLIA [id number] [place] [address] [place] Lymphocytes (Bld) [#/Vol] 2.11 10*3/uL Normal 1.00-4.00 [facility] Comment on above: Order Comment: Speci men Type: BLOOD SPECIMENOrdering Facility: [facility] Address: [address] [place] [address] Performed By: #### 5 7021-8 ####[facility] LABCLIA [id number] [place] [address] [place] Lymphocytes/100 WBC (Bld) 12.5 % Normal [facility] Comment on above: Order Comment: Speci men Type: BLOOD SPECIMENOrdering Facility: [facility] Address: [address] [place] [address] Performed By: #### 5 7021-8 ####[facility] LABCLIA [id number] [place] [address] [place] MCH (RBC) [Entitic mass] 30.4 pg Normal 26.0-34.0 [facility] Comment on above: Order Comment: Speci men Type: BLOOD SPECIMENOrdering Facility: [facility] Address: [address] [place] [address] Performed By: #### 5 7021-8 ####[facility] LABCLIA [id number] [place] [address] [place] MCHC (RBC) [Mass/Vol] 33.7 g/dL Normal 30.5-36.0 [facility] Comment on above: Order Comment: Speci men Type: BLOOD SPECIMENOrdering Facility: [facility] Address: [address] [place] [address] Performed By: #### 5 7021-8 ####[facility] LABCLIA [id number] [address], [place] [address] [place] MCV (RBC) [Entitic vol] 90.2 fL Normal 80.0-100.0 [facility] Comment on above: Order Comment: Speci men Type: BLOOD SPECIMENOrdering Facility: [facility] Address: [address] [place] [address] Performed By: #### 5 7021-8 ####[facility] LABCLIA [id number] [address], [place] [address] [place] Monocytes (Bld) [#/Vol] 0.70 10*3/uL Normal <0.87 [facility] Comment on above: Order Comment: Speci men Type: BLOOD SPECIMENOrdering Facility: [facility] Address: [address] [place] [address] Performed By: #### 5 7021-8 ####[facility] LABCLIA [id number] [address], [place] [address] [place] Monocytes/100 WBC (Bld) 4.1 % Normal [facility] Comment on above: Order Comment: Speci men Type: BLOOD SPECIMENOrdering Facility: [facility] Address: [address] [place] [address] Performed By: #### 5 7021-8 ####[facility] LABCLIA [id number] [place] [id number] [place] Neutrophils (Bld) [#/Vol] 13.80 10*3/uL High 1.45-7.50 [facility] Comment on above: Order Comment: Speci men Type: BLOOD SPECIMENOrdering Facility: [facility] Address: [address] [place] [address] Performed By: #### 5 7021-8 ####[facility] LABCLIA [id number] [address], [facility] [place] Neutrophils/100 WBC (Bld) 81.7 % Normal [facility] Comment on above: Order Comment: Speci men Type: BLOOD SPECIMENOrdering Facility: [facility] Address: [address] [place] [address] Performed By: #### 5 7021-8 ####[facility] LABCLIA [id number] [facility] [address] [place] Nucleated RBC (Bld) [#/Vol] 10*3/uL Normal <0.01 [facility] Comment on above: Order Comment: Speci men Type: BLOOD SPECIMENOrdering Facility: [facility] Address: [address] [place] [address] Performed By: #### 5 7021-8 ####[facility] LABCLIA [id number] [place] [address] [place] Nucleated RBC/100 WBC (Bld) [Ratio] 0.0 /100 WBC Normal [facility] Comment on above: Order Comment: Speci men Type: BLOOD SPECIMENOrdering Facility: [facility] Address: [address] [place] [address] Performed By: #### 5 7021-8 ####[facility] LABCLIA [id number] [place] [address] [place] Platelet mean volume (Bld) [Entitic vol] 9.7 fL Normal 9.0-12.7 [facility] Comment on above: Order Comment: Speci men Type: BLOOD SPECIMENOrdering Facility: [facility] Address: [address] [place] [address] Performed By: #### 5 7021-8 ####[facility] LABCLIA [id number] [place] [address] [place] Platelets (Bld) [#/Vol] 286 10*3/uL Normal 150-400 [facility] Comment on above: Order Comment: Speci men Type: BLOOD SPECIMENOrdering Facility: [facility] Address: [address] [place] [address] Performed By: #### 5 7021-8 ####[facility] LABIA [id number] [place] [address] [place] RBC (Bld) [#/Vol] 4.28 10*6/uL Normal 3.90-5.20 [facility] Comment on above: Order Comment: Speci men Type: BLOOD SPECIMENOrdering Facility: [facility] Address: [address] [place] [address] Performed By: #### 5 7021-8 ####[facility] LABIA [id number] [place] [address] [place] WBC (Bld) [#/Vol] 16.90 10*3/uL High 3.70-11.00 [facility] Comment on above: Order Comment: Speci men Type: BLOOD SPECIMENOrdering Facility: [facility] Address: [address] [place] [address] Performed By: #### 5 7021-8 ####[facility] [id number] [address] [place] OPERATIVE NOon 11-20-2024 OPERATIVE NO HNO ID: [id number] Author: JOHN BRADLEY MD Service: Endocrine Surgery Author Type: Physician Type: Operative Report Filed: 11/29/2024 11:43 Note Text: OPERATIVE/PROCEDURE REPORT LOG ID: [id number] SURGERY/PROCEDURE DATE: 11/20/2024 INCISION/PROCEDURE START TIME: 1:50 PM INCISION CLOSE/PROCEDURE END TIME: 4:11 PM SURGEON(S)/PROCEDURALIST( S) AND LABELER(S): Surgeons and Role: * John Bradley MD - Primary * Gomez Rodríguez MD - Assisting * Alber Jamil MD - Fellow No Additional Staff PREOPERATIVE DIAGNOSIS: Right adrenal tumor POSTOPERATIVE DIAGNOSIS: Same SURGERY/PROCEDURE: Laparoscopic right adrenalectomy ANESTHESIA: General. COMPLICATIONS: None. ESTIMATED BLOOD LOSS: 20 mL. SPECIMENS: A) Right adrenal gland HISTORY: The patient is a 59 year old female, who was evaluated for indeterminate right adrenal mass measuring 4.8 cm. The patient is being taken to the operating room for laparoscopic right adrenalectomy. FINDINGS: At exploration, we found a right adrenal mass without any evidence of local invasion to the adjacent structures. This mass was firm and was dissected out from the surrounding structures with Ligasure. The right adrenal vein was controlled with Ligasure. There was a small adrenal rest posterior to the adrenal which was dissected out as well. DESCRIPTION OF PROCEDURE: The patient was taken to the operating room and placed supine on the operating table. General anesthesia was achieved. A Hanalei and Saenz catheter were placed. The patient was positioned in left lateral decubitus. A time out was called according to WHO guidelines. Using a 5 mm opticview trocar we gain access to the abdominal cavity and achieved pneumoperitoneum to 15 mmHg. A laparoscopy was done and no abnormal findings were noted. Under direct visualization 2 more 5 mm trocars and 1 10 mm trocar were placed in the right upper quadrant. Some adhesions to the liver were lysed with the Ligasure as well as the triangular ligament. Using the monopolar hook the peritoneum under the liver was opened from medial to lateal allowing the liver to be retracted superiorly. Following this the adrenal gland was dissected from the superior border from the inferior vena cava to the the lateral abdominal wall. Then the inferior aspect of the adrenal was dissected. Finally the medial aspect was dissected with Ligasure exposing the inferior vena cava. Once the right adrenal vein was identified this was taken with Ligasure. The remaining attachments were then taken with the Ligasure freeing the adrenal gland. The specimen was placed in an endocatch bag and retrieved dilating the 10 mm port. Following this we inspected for hemostasis. Once hemostasis was achieved we proceed to close the 10 mm port with interrupted 0 vicryl using the jason junior. Bupivacaine was infiltrated under direct visualization. Following this the rest of the ports were removed under direct visualization. The skin was closed with 4-0 Monocryl and dermabond. The patient tolerated well the procedure and was transferred to PACU in stable condition. Dr. Bradley served as primary surgeon and scrubbed from skin incision to completion of skin closure. There was no qualified resident available to help with this case, and Dr. Jamil was asked to serve as first aid trainer. During the course of the dissection, the first aid trainer assisted with thyroid mobilization, vascular isolation, and division. IMPLANTABLE DEVICES: NONE DRAINS: None COMPLICATIONS: None CLOSURE TECHNIQUE: Primary PARTICIPATION IN SURGERY/PROCEDURE: I/primary surgeon/proceduralist performed the procedure with assistance. 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 Normal [facility] Pathology biopsy report Sheng (Tiss)on 11-20-2024 AP DISCLAIMER Normal [facility] Comment on above: Order Comment: Speci men Type: TISSUE SPECIMENOrdering Facility: [facility] Address: [address] [place] [address] Result Comment: Blanca sabillon Developed Test (LDT) Disclaimer: Performance characteristics of immunohistochemical, immunofluorescent, and chromogenic in-situ hybridization tests have been determined by the performing laboratory within [facility] Pathology and Laboratory Medicine Department ([facility], [facility], [facility], [facility], [facility], [facility], or [facility]) in a manner consistent with CLIA requirements. One or more of these tests may not have been cleared or approved by the FDA. [facility] is regulated under CLIA as qualified to perform high-complexity testing. These tests are used for clinical purposes. These should not be regarded as investigational or for research. Positive and negative controls stain appropriately. Performed By: #### 6 6121-5 ####[facility] LABCLIA [id number] [place] [address] [place] CASE REPORT Normal [facility] Comment on above: Order Comment: Speci men Type: TISSUE SPECIMENOrdering Facility: [facility] Address: [address] [place] [address] Result Comment: Surg ica Pathology Report Case: [id number] Authorizing Provider: John Bradley MD Collected: 11/20/2024 03:59 PM Ordering Location: Admitting Received: 11/20/2024 04:32 PM Pathologist: Iván Montero MD Specimen: Adrenal Gland, Right, Resection Performed By: #### 6 6121-5 ####[facility] [id number] [address] STATES OF [facility] CLINICAL HISTORY Normal [facility] Comment on above: Order Comment: Speci men Type: TISSUE SPECIMENOrdering Facility: [facility] Address: [address] [place] [address] Result Comment: Pre- op diagnosis: Adrenal mass (HCC) [E27.8] Performed By: #### 6 6121-5 ####[facility] [id number] [address] [place] DIAGNOSIS COMMENT This case is interpr eted in collaboration with Dr. Ling Talavera. 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 As typical in adults, the neuroblastic component is somewhat difficult to classify using conventional pediatric criteria. 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 However, there are scattered areas of necrosis such that we cannot entirely exclude small foci representing nodular subtype with complete necrosis. Dr. Iván Lemon has also reviewed the neuroblastic component and concurs. The pheochromocytoma component of the neoplasm stains negative for SF1 and positive for chromogranin, GATA3, and synaptophysin. The sustentacular supporting cells stain positive for S100. The pheochromocytoma has histologic features which are associated with aggressive behavior with a PASS score of 7 (invasion into periadrenal adipose tissue - 2 points, diffuse/large nested growth - 2 points, tumor spindling - 2 points, profound nuclear pleomorphism - 1 point). The neoplasm comes to within 0.1 mm of the capsular margin, but no definitive tumor is present at the margin. Normal [facility] Comment on above: Order Comment: Speci men Type: TISSUE SPECIMENOrdering Facility: [facility] Address: [address] [place] [address] Performed By: #### 6 6121-5 ####[facility] [id number] [address] FINAL DIAGNOSIS Normal [facility] Comment on above: Order Comment: Speci men Type: TISSUE SPECIMENOrdering Facility: [facility] Address: [address] [place] [address] Result Comment: A. 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 - Extra-adrenal invasion is present. 11/26/2024 at 0949 EDT Performed By: #### 6 6121-5 ####[facility] LABCLIA [id number] [address] OF [facility] FINAL PERFORMING LAB Normal [facility] Comment on above: Order Comment: Speci men Type: TISSUE SPECIMENOrdering Facility: [facility] Address: [address] [place] [address] Result Comment: Diag nostic interpretation performed at: [facility], [address] [place] [address] CLIA# [id number] Weatherization Coordinator: Terrell Gary MD Performed By: #### 6 6121-5 ####[facility] LABCLIA [id number] [address] OF [place] GROSS DESCRIPTION Normal [facility] Comment on above: Order Comment: Speci men Type: TISSUE SPECIMENOrdering Facility: [facility] Address: [address] [place] [address] Result Comment: A. A drenal Gland, Right, Resection Received in formalin labeled as adrenal gland is an adrenal gland measuring 10.5 x 6.5 x 3.4 cm and weighing 85.7 g. The surface is inked black. There is a palpable bulging mass measuring 5.2 x 4.2 x 3.5 cm. The mass is sands-pink, well encapsulated and demonstrates an area of sands-pope to sands-yellow dusky discoloration composing approximately 60% of the cut surfaces. A recognizable portion of the adrenal gland is stretched along the aspect of the mass. The mass appears confined to the capsule. A photograph is obtained. Patient Coordinator sections are submitted as follows: A1 periphery of mass with possible extension beyond capsule (see photograph) A2 sales representative wire rope section of mass with necrosis A3-A4 mass with adjacent normal and black inked capsular soft tissue margin A5 additional section of mass with black inked capsular soft tissue margin A6 uninvolved adrenal gland [facility] 11/21/24 10:03 AM Gross examination performed at [facility], [address] [place] [address] Performed By: #### 6 6121-5 ####[facility] LABCLIA [id number] [address] CHEST W IVCONon CT CHEST W IVCON * * *Final Report* * * DATE OF EXAM: Nov 15 2024 1:32PM [facility] 0539 - CT CHEST W IVCON / PROCEDURE REASON: Disorder of adrenal gland (HCC) * * * * Physician Interpretation * * * * EXAMINATION: CHEST CT WITH CONTRAST CLINICAL HISTORY: Preoperative evaluation prior to surgery. Technique: Spiral CT acquisition of the chest from the thoracic inlet to the upper abdomen following IV contrast. MQ: [id number]_6 Contrast: 50 mL Omnipaque [address] Radiation dose: Integrated Dose-length product (DLP) for this visit = 433 mGy*cm CT Dose Reduction Employed: Automated exposure control(AEC) and iterative recon Comparison: CT abdomen dated 10/14/2024 RESULT: Limitations: None. Lines, tubes, and devices: None. Lung parenchyma and airways: No consolidation. 3 mm right upper lobe nodule (7, 79). 2 mm left upper lobe nodular opacity (7, 74). Minimal atelectatic changes. 5 mm calcified right lower lobe granuloma. The central airways are patent. Pleural space: No pleural effusion. No pleural thickening. Lower neck, lymph nodes, and mediastinum: The imaged thyroid gland contains a punctate coarse calcification in the right thyroid lobe. No lymphadenopathy in the supraclavicular, axillary, mediastinal, or hilar regions. Heart, pericardium, and thoracic vessels: The thoracic aorta and main pulmonary artery are normal in caliber. The cardiac chambers are normal in size. Coronary artery atherosclerotic calcifications are noted, although the study is not optimized for coronary assessment. No pericardial effusion or thickening. Bones and soft tissues: Degenerative changes. No CT evidence of destructive osseous lesion Upper abdomen: Stable 2.9 x 4.3 x 4.8 cm indeterminant right adrenal nodule which is noted to abut the posterior aspect of the IVC. Stable adenomatous hyperplasia of the left adrenal gland and residual right adrenal gland as fully characterized on prior CT adrenal protocol. Couple of hepatic cysts and a few additional subcentimeter hypodense too small to characterize hepatic lesions. Left renal parapelvic cyst. Duodenal lipoma partially visualized. Localizer images: No additional findings. IMPRESSION: 1. Subcentimeter calcified right lower lobe granuloma. 2. Couple of less than 6 mm pulmonary nodules. 3. No suspect intrathoracic lymphadenopathy. 4. Redemonstration of nearly 5 cm indeterminant right adrenal nodule and adenomatous hyperplasia of the bilateral adrenal glands. Incidental Finding: Follow-up Acuity: Incidental Finding: Solid: <6 mm (solitary or multiple) Routing Code: N/A Recommendation: No imaging follow-up is recommended Time Frame: N/A Comments: If there are risk factors for lung malignancy, a follow-up chest CT exam could be obtained in 12 months --END OF FINDING-- Import Clerk: ALIZA Transcribe Date/Time: Nov 19 2024 11:22A Dictated by : SHERLEY WATSON MD This examination was interpreted and the report reviewed and electronically signed by: SHERLEY WATSON MD on Nov 19 2024 11:30AM EST [id number] [id number] Invalid Interpretation Code [facility] SPIROMETRY WITH DILATOR IF O BSTRUCTEDon 11-15-2024 SPIROMETRY WITH DILATOR IF OBSTRUCTED [facility] [address] [place] [address] Test Date: 2024-11-15 Pat Name: VIOLET CHIN Department: Room: Gender: Female [employer]: : 1965 Requested By: Order Number: [id number] Reading MD: Natasha Recinos MD Interpretive Statements Current ATS/ERS acceptability and repeatability standards for spirometry met. Start of test and EOFE criteria met.//LC IMPRESSION: Spirometry is normal. Electronically Signed On 11-17-2024 18:17:37 EDT by Natasha Recinos MD ID: [id number] Name: VIOLET CHIN Race: White Ht: 62.80 in Wt: 191.00 lbs Age: 59 Gender: Female : 1965 Dx: Preoperative testing_ Smoking Hx: Non-smoker Doctor: GURVINDER GARCIA Test Date: 11/15/2024 Site: Tech: [facility] PRE-BRONCH POST-BRONCH Nita LLN Pred ULN %Pred ZScore Nita %Pred %Chg ZScore SPIROMETRY FVC 3.47 2.08 2.86 3.65 121 1.26 FEV1 2.54 1.65 2.29 2.90 110 0.65 FEV1/FVC 0.73 0.68 0.80 0.90 91 -1.02 FEFMax 6.66 4.50 6.15 7.80 108 0.51 FEF50 2.62 1.65 3.26 4.87 80 -0.65 FIF50 3.52 FEF50/FIF50 0.75 90-100 FIVC 3.35 AZE73-76 1.80 1.16 2.25 3.70 79 -0.62 ExpiredTime 10.00 TimeToFEFMax 0.07 SARAY 0.07 VolExtrap% 2 Comments: Current ATS/ERS acceptability and repeatability standards for spirometry met. Start of test and EOFE criteria met.//LC FVC_PRE (L) : 3.47 L FVC_PRED (L) : 2.86 L FVC_LLN (L) : 2.08 L FVC_ULN (L) : 3.65 L FEV1_PRE (L) : 2.54 L FEV1_PRED (L) : 2.29 L FEV1_LLN (L) : 1.65 L FEV1_ULN (L) : 2.90 L FEV1/FVC_PRE (%) : 73 % FEV1/FVC_PRED (%) : 80 % FEV1/FVC_LLN (%) : 68 % QAJ13_KNA (L/S) : 5.20 L/S ZOL90_BKX (L/S) : 0.60 L/S HOM81_ZPMX (L/S) : 0.64 L/S KOW93_HTI (L/S) : 0.26 L/S MNH98_HGU (L/S) : 1.48 L/S PFT47-21%_PRE (L/S) : 1.80 L/S DZC90-64%_PRED (L/S) : 2.25 L/S ILO09-85%_LLN (L/S) : 1.16 L/S PEF_PRE (L/S) : 6.66 L/S PEFMAX_LLN (L/S) : 4.50 L/S PEFMAX_ULN (L/S) : 7.80 L/S FET_PRE (S) : 10.00 S Normal [facility] Basic metabolic 2000 panelon 11-08-2024 Anion gap [Moles/Vol] 13 mmol/L Normal 8-15 [facility] Comment on above: Order Comment: Speci men Type: BLOOD SPECIMENOrdering Facility: [facility] Address: [address] [place] [address] Performed By: #### 2 4321-2 ####[facility] LABIA [id number] [place] [address] [place] Calcium [Mass/Vol] 9.5 mg/dL Normal 8.5-10.2 [facility] Comment on above: Order Comment: Speci men Type: BLOOD SPECIMENOrdering Facility: [facility] Address: [address] [place] [address] Performed By: #### 2 4321-2 ####[facility] LABCLIA [id number] [place] [address] [place] Chloride [Moles/Vol] 95 mmol/L Low 98-107 [facility] Comment on above: Order Comment: Speci men Type: BLOOD SPECIMENOrdering Facility: [facility] Address: [address] [place] [address] Performed By: #### 2 4321-2 ####[facility] LABCLIA [id number] [place] [address] [place] CO2 [Moles/Vol] 23 mmol/L Normal 22-30 [facility] Comment on above: Order Comment: Speci men Type: BLOOD SPECIMENOrdering Facility: [facility] Address: [address] [place] [address] Performed By: #### 2 4321-2 ####[facility] LABCLIA [id number] [place] [id number] [place] Creatinine [Mass/Vol] 0.69 mg/dL Normal 0.58-0.96 [facility] Comment on above: Order Comment: Speci men Type: BLOOD SPECIMENOrdering Facility: [facility] Address: [address] [place] [address] Performed By: #### 2 4321-2 ####[facility] LABCLIA [id number] [place] [address] [place] Creatinine and Glomerular filtration rate.predicted panel (S/P/Bld) 100 mL/min/1.73m??? Normal >=60 [facility] Comment on above: Order Comment: Speci men Type: BLOOD SPECIMENOrdering Facility: [facility] Address: [address] [place] [address] Result Comment: Yesenia mated Glomerular Filtration Rate (eGFR) is calculated using the 2020 CKD-EPI creatinine equation. This equation utilizes serum creatinine, sex, and age as parameters. The creatinine assay has traceable calibration to isotope dilution-mass spectrometry. Refer to KDIGO guidelines for clinical interpretation. In patients with unstable renal function, e.g. those with acute kidney injury, the eGFR may not accurately reflect actual GFR. Performed By: #### 2 4321-2 ####[facility] LABCLIA [id number] [place] [id number] [place] Glucose [Mass/Vol] 89 mg/dL Normal 74-99 [facility] Comment on above: Order Comment: Speci men Type: BLOOD SPECIMENOrdering Facility: [facility] Address: [address] [place] [address] Result Comment: The [place] Diabetes Association (ADA) provides guidance for cutoff values for fasting glucose and random glucose. The ADA defines fasting as no caloric intake for at least 8 hours. Fasting plasma glucose results between 100 to 125 mg/dL indicate increased risk for diabetes (prediabetes). Fasting plasma glucose results greater than or equal to 126 mg/dL meet the criteria for diagnosis of diabetes. In the absence of unequivocal hyperglycemia, results should be confirmed by repeat testing. In a patient with classic symptoms of hyperglycemia or hyperglycemic crisis, random plasma glucose results greater than or equal to 200 mg/dL meet the criteria for diagnosis of diabetes. Reference: Standards of Medical Care in Diabetes 2016, [place] [employer] Association. Diabetes Care. 2016.39(Suppl 1). Performed By: #### 2 4321-2 ####[facility] LABCLIA [id number] [place] [address] [place] Potassium [Moles/Vol] 4.2 mmol/L Normal 3.7-5.1 [facility] Comment on above: Order Comment: Speci men Type: BLOOD SPECIMENOrdering Facility: [facility] Address: [address] [place] [address] Performed By: #### 2 4321-2 ####[facility] LABIA [id number] [place] [address] [place] Sodium [Moles/Vol] 131 mmol/L Low 136-144 [facility] Comment on above: Order Comment: Speci men Type: BLOOD SPECIMENOrdering Facility: [facility] Address: [address] [place] [address] Performed By: #### 2 4321-2 ####[facility] LABCLIA [id number] [place] [id number] [place] Urea nitrogen [Mass/Vol] 17 mg/dL Normal 7-21 [facility] Comment on above: Order Comment: Speci men Type: BLOOD SPECIMENOrdering Facility: [facility] Address: [address] [place] [address] Performed By: #### 2 4321-2 ####[facility] LABIA [id number] [place] [address] [place] CBC W Auto Differential pane l (Bld)on 11-08-2024 Basophils (Bld) [#/Vol] 0.05 10*3/uL Normal <0.11 [facility] Comment on above: Order Comment: Speci men Type: BLOOD SPECIMENOrdering Facility: [facility] Address: [address] [place] [address] Performed By: #### 5 7021-8 ####[facility] LABCLIA [id number] [address], [place] [address] [place] Basophils/100 WBC (Bld) 0.9 % Normal [facility] Comment on above: Order Comment: Speci men Type: BLOOD SPECIMENOrdering Facility: [facility] Address: [address] [place] [address] Performed By: #### 5 7021-8 ####[facility] LABCLIA [id number] [place] [address] [place] Differential cell count method Nom (Bld) Auto Normal [facility] Comment on above: Order Comment: Speci men Type: BLOOD SPECIMENOrdering Facility: [facility] Address: [address] [place] [address] Performed By: #### 5 7021-8 ####[facility] LABCLIA [id number] [place] [address] [place] Eosinophils (Bld) [#/Vol] 0.05 10*3/uL Normal <0.46 [facility] Comment on above: Order Comment: Speci men Type: BLOOD SPECIMENOrdering Facility: [facility] Address: [address] [place] [address] Performed By: #### 5 7021-8 ####[facility] LABCLIA [id number] [place] [address] [place] Eosinophils/100 WBC (Bld) 0.9 % Normal [facility] Comment on above: Order Comment: Speci men Type: BLOOD SPECIMENOrdering Facility: [facility] Address: [address] [place] [address] Performed By: #### 5 7021-8 ####[facility] LABCLIA [id number] [place] [address] [place] Erythrocyte distribution width (RBC) [Ratio] 13.7 % Normal 11.5-15.0 [facility] Comment on above: Order Comment: Speci men Type: BLOOD SPECIMENOrdering Facility: [facility] Address: [address] [place] [address] Performed By: #### 5 7021-8 ####[facility] LABCLIA [id number] [place] [address] [place] Hematocrit (Bld) [Volume fraction] 40.2 % Normal 36.0-46.0 [facility] Comment on above: Order Comment: Speci men Type: BLOOD SPECIMENOrdering Facility: [facility] Address: [address] [place] [address] Performed By: #### 5 7021-8 ####[facility] LABCLIA [id number] [place] [address] [place] Hemoglobin (Bld) [Mass/Vol] 13.5 g/dL Normal 11.5-15.5 [facility] Comment on above: Order Comment: Speci men Type: BLOOD SPECIMENOrdering Facility: [facility] Address: [address] [place] [address] Performed By: #### 5 7021-8 ####[facility] LABCLIA [id number] [place] [id number] [place] Immature granulocytes (Bld) [#/Vol] 10*3/uL Normal <0.10 [facility] Comment on above: Order Comment: Speci men Type: BLOOD SPECIMENOrdering Facility: [facility] Address: [address] [place] [address] Performed By: #### 5 7021-8 ####[facility] LABCLIA [id number] [place] [address] [place] Immature granulocytes/100 WBC (Bld) 0.2 % Normal [facility] Comment on above: Order Comment: Speci men Type: BLOOD SPECIMENOrdering Facility: [facility] Address: [address] [place] [address] Performed By: #### 5 7021-8 ####[facility] LABCLIA [id number] [place] [address] [place] Lymphocytes (Bld) [#/Vol] 1.68 10*3/uL Normal 1.00-4.00 [facility] Comment on above: Order Comment: Speci men Type: BLOOD SPECIMENOrdering Facility: [facility] Address: [address] [place] [address] Performed By: #### 5 7021-8 ####[facility] LABIA [id number] [place] [address] [place] Lymphocytes/100 WBC (Bld) 29.3 % Normal [facility] Comment on above: Order Comment: Speci men Type: BLOOD SPECIMENOrdering Facility: [facility] Address: [address] [place] [address] Performed By: #### 5 7021-8 ####[facility]IA [id number] [place] [address] [place] MCH (RBC) [Entitic mass] 30.1 pg Normal 26.0-34.0 [facility] Comment on above: Order Comment: Speci men Type: BLOOD SPECIMENOrdering Facility: [facility] Address: [address] [place] [address] Performed By: #### 5 7021-8 ####[facility] LABCLIA [id number] [place] [address] [place] MCHC (RBC) [Mass/Vol] 33.6 g/dL Normal 30.5-36.0 [facility] Comment on above: Order Comment: Speci men Type: BLOOD SPECIMENOrdering Facility: [facility] Address: [address] [place] [address] Performed By: #### 5 7021-8 ####[facility] LABIA [id number] [place] [address] [place] MCV (RBC) [Entitic vol] 89.5 fL Normal 80.0-100.0 [facility] Comment on above: Order Comment: Speci men Type: BLOOD SPECIMENOrdering Facility: [facility] Address: [address] [place] [address] Performed By: #### 5 7021-8 ####[facility] LABIA [id number] [place] [address] [place] Monocytes (Bld) [#/Vol] 0.42 10*3/uL Normal <0.87 [facility] Comment on above: Order Comment: Speci men Type: BLOOD SPECIMENOrdering Facility: [facility] Address: [address] [place] [address] Performed By: #### 5 7021-8 ####[facility] LABIA [id number] [place] [address] [place] Monocytes/100 WBC (Bld) 7.3 % Normal [facility] Comment on above: Order Comment: Speci men Type: BLOOD SPECIMENOrdering Facility: [facility] Address: [address] [place] [address] Performed By: #### 5 7021-8 ####[facility] LABIA [id number] [place] [address] [place] Neutrophils (Bld) [#/Vol] 3.53 10*3/uL Normal 1.45-7.50 [facility] Comment on above: Order Comment: Speci men Type: BLOOD SPECIMENOrdering Facility: [facility] Address: [address] [place] [address] Performed By: #### 5 7021-8 ####[facility] LABCLIA [id number] [place] [address] [place] Neutrophils/100 WBC (Bld) 61.4 % Normal [facility] Comment on above: Order Comment: Speci men Type: BLOOD SPECIMENOrdering Facility: [facility] Address: [address] [place] [address] Performed By: #### 5 7021-8 ####[facility] LABCLIA [id number] [place] [address] [place] Nucleated RBC (Bld) [#/Vol] 10*3/uL Normal <0.01 [facility] Comment on above: Order Comment: Speci men Type: BLOOD SPECIMENOrdering Facility: [facility] Address: [address] [place] [address] Performed By: #### 5 7021-8 ####[facility] LABCLIA [id number] [place] [address] [place] Nucleated RBC/100 WBC (Bld) [Ratio] 0.0 /100 WBC Normal [facility] Comment on above: Order Comment: Speci men Type: BLOOD SPECIMENOrdering Facility: [facility] Address: [address] [place] [address] Performed By: #### 5 7021-8 ####[facility] LABCLIA [id number] [place] [address] [place] Platelet mean volume (Bld) [Entitic vol] 11.1 fL Normal 9.0-12.7 [facility] Comment on above: Order Comment: Speci men Type: BLOOD SPECIMENOrdering Facility: [facility] Address: [address] [place] [address] Performed By: #### 5 7021-8 ####[facility] LABCLIA [id number] [place] [address] [place] Platelets (Bld) [#/Vol] 218 10*3/uL Normal 150-400 [facility] Comment on above: Order Comment: Speci men Type: BLOOD SPECIMENOrdering Facility: [facility] Address: [address] [place] [address] Performed By: #### 5 7021-8 ####[facility] LABCLIA [id number] [place] [address] [place] RBC (Bld) [#/Vol] 4.49 10*6/uL Normal 3.90-5.20 [facility] Comment on above: Order Comment: Speci men Type: BLOOD SPECIMENOrdering Facility: [facility] Address: [address] [place] [address] Performed By: #### 5 7021-8 ####[facility] LABCLIA [id number] [place] [address] [place] WBC (Bld) [#/Vol] 5.74 10*3/uL Normal 3.70-11.00 [facility] Comment on above: Order Comment: Speci men Type: BLOOD SPECIMENOrdering Facility: [facility] Address: [address] [place] [address] Performed By: #### 5 7021-8 ####[facility] LABCLIA [id number] [place] [address] [place] CONFIRM BLOOD TYPEon 025 ABO O Normal [facility] Comment on above: Order Comment: Speci men Type: BLOOD SPECIMENOrdering Facility: [facility] Address: [address] [place] [address] Performed By: #### C ONABO ####[facility] BLOOD BANKCLIA [id number] [place] [address] [place] Rh Nom (Bld) Positive Normal [facility] Comment on above: Order Comment: Speci men Type: BLOOD SPECIMENOrdering Facility: [facility] Address: [address] [place] [address] Performed By: #### C ONABO ####[facility] BLO[facility]ANKIA [id number] [address] UCP21dt 11-08-2024 ECG01 Ventricular Rate : 7 0 BPM Atrial Rate : 70 BPM P-R Interval : 144 ms QRS Duration : 94 ms Q-T Interval : 412 ms QTC Calculation(Bazett) : 444 ms Calculated P Rowland : 9 degrees Calculated R Rowland : 67 degrees Calculated T Rowland : 5 degrees NORMAL SINUS RHYTHM NORMAL ECG Confirmed by MD DREW QARAB ([id number]) on 11/12/2024 6:45:45 PM NAME : VIOLET CHIN PID : [id number] : 1965 Gender : Female Race : ORD : Procedure Date : Nov 08 2024 15:22:37 Edit Date : Nov 12 2024 18:45:46 Diagnosis: NORMAL SINUS RHYTHM NORMAL ECG Confirmed by MD DREW QARAB ([id number]) on 11/12/2024 6:45:45 PM Test Reason : Location : 636 : [facility] Overread By : MD DREW QARAB Edited By : MD DREW QARAB Referred By : JOHN BRADLEY Acquired by : Kelly flores [facility] HISTORY PHYSICALon HISTORY PHYSICAL HNO ID: [id number] Author: GURVINDER GARCIA APRN.CNP Service: ? Author Type: Nurse Practitioner Type: H&P Filed: 11/11/2024 11:11 Note Text: [facility] HISTORY AND PHYSICAL EXAMINATION SERVICE DATE: 11/08/2024 SERVICE TIME: 11:11 AM PRIMARY CARE PHYSICIAN: Erick Lemus MD Assessment Patient has the following medical conditions which may affect rosalie-operative course: Essential hypertension Assessment: controlled on rx Last 14 BP Last 14 Encounter BP Readings: Date: BP: 11/08/2024 140/84 11/05/2024 165/88 06/28/2024 158/92 05/15/2024 138/80 01/17/2024 112/78 11/14/2023 118/74 04/13/2023 118/78 02/18/2022 116/76 02/04/2021 138/88 10/16/2019 122/78 04/15/2019 148/88 03/15/2019 122/76 09/28/2018 131/84 07/02/2018 116/80 Mixed hyperlipidemia Assessment: c/w statin Smoker Assessment: 1ppd/30+ years, down to 0.5ppd, denies dx COPD/asthma, does admit to daily productive cough, worse the past several days stating she feels like she has an URI, /occasional wheezing, PFT/CXR ordered Anxiety with depression Assessment: stable on rx per pt Marijuana use Assessment: flower, 1-2x/week, reviewed to withhold prior to surgery, pt verbalized understanding. Obesity, Class I, BMI 30-34.9 Assessment: Body mass index is 32.61 kg/m?. Prediabetes Assessment: diet controlled, Hemoglobin A1C (%) Date Value 10/14/2024 6.0 Liver cyst Assessment: multiple seen on CT 04/2024 Polypoid adenoma Assessment: per CT 04/2024 with GI consult recommended ANESTHESIA FINDINGS: Intubation History: No history of difficult intubation Significant Anesthesia Considerations: none Airway History: No history of difficult airway Nelson Activity Status Index: METS: Climb a flight of stairs or walk up a hill (5.50 METs) DASI Score: 5.5 Patient denies any chest pain or undue shortness of breath with the above physical activity. Clinical Frailty Scale: 3. Well, with treated comorbid disease STOP-Bang Score: Has or is being treated for high blood pressure Patient over 50 years old Has a large neck Denies snoring loudly Denies feeling tired, fatigued, or sleepy during the daytime Has not been observed to stop breathing or choking/gasping during sleep BMI less than or equal to 35 kg/m2 Non-male patient STOP-Bang Score: 3 [id number] Score: Age: <65 Sex: female CHF history: No Hypertension history: Yes Stroke/TIA/thromboembolis m history: No Vascular disease history: No Diabetes history: No LGT4BQ1-CBBg Score: 2 ARISCAT Score: Age: 51-80 Preoperative SpO2: >=96% Preoperative anemia: No Surgical incision: peripheral Duration of surgery: >3 hrs Emergency procedure: No ARISCAT Score: I - PHYSICAL EVALUATION AIRWAY Patient intubated: No. Tracheostomy tube not present Mallampati: III. TM distance: >3 FB. Neck ROM: full ROM without neurological symptoms. Mouth opening: adequate. Short neck: no. Thick neck: yes Carlos present: no Lip Bite Test: I Microretrognathia/Microna gthia/Recessed Chin: No DENTAL Dentures, upper: complete. Dentures, lower: complete. II - ANESTHESIA PLAN Anesthetic Plan: other Beta Piper Monitoring Plan Post Procedure Analgesic Plan Prepared for Surgery: optimally prepared for surgery, pending [see comment]. Spirometry pending 11/15/2024 CONSULTS: Patient does not require consults for optimization at this time Planned Anesthetic: other anesthesia choice The Following Tests/Procedures Have Been Initiated: Orders Placed This Encounter XR CHEST 2V FRONTAL/LAT Standing Status: Future Number of Occurrences: 1 Expected Date: 11/08/2024 Expiration Date: 12/08/2025 ADULT - SPIROMETRY WITH DILATOR IF OBSTRUCTED Standing Status: Future Expected Date: 11/08/2024 Expiration Date: 12/08/2025 Scheduling Instructions: Please call to schedule, cancel, or change an appointment. Adults [phone] Pediatrics [phone] Should this patient be seen in a Pediatric Lab?: No REASON FOR VISIT: Violet Chin is a 59 year old female who is scheduled for Procedure(s): LAPAROSCOPIC ADRENALECTOMY (Right) at the request of Dr. John Bradley for consultation. My final recommendation will be communicated back to the requesting physician by way of shared medical record or letter. Subjective The patient has the following: COVID-19 Immunization Status Current Care Gaps Covid-19 Vaccine ( season) Overdue since 04/07/2024 04/13/2023 Postponed until 04/13/2024 by Erick Lemus MD (Declined at this time) 04/14/2021 Imm Admin: COVID-19 original vaccine, age 12+ yr, monovalent (PFIZER-BIONTECH - PURPLE TOP) 02/04/2021 Imm Admin: COVID-19 original vaccine, age 12+ yr, monovalent (PFIZER-BIONTECH - PURPLE TOP) Only the first 3 history entries have been loaded, but more history exists. CHIEF COMPLAINT: Pre-op (more content not included)... [facility] DAYon 04- 04-2025 ABO O Normal [facility] Comment on above: Order Comment: Speci men Type: BLOOD SPECIMENOrdering Facility: [facility] Address: [address] [place] [address] Performed By: #### T SCR30 ####CC MAIN BLOOD BANKCLIA [id number] [address] [facility] Rh Nom (Bld) Positive Normal [facility] Comment on above: Order Comment: Speci men Type: BLOOD SPECIMENOrdering Facility: [facility] Address: [address] [place] [address] Performed By: #### T SCR30 ####CC MAIN BLOOD BANKCLIA [id number] [address] OF [facility] XR CHEST 2V FRONTAL/LATon XR CHEST 2V FRONTAL/LAT * * *Final Report* * * DATE OF EXAM: Nov 08 2024 3:22PM [id number] - XR CHEST 2V FRONTAL/LAT / PROCEDURE REASON: multiple diagnoses * * * * Physician Interpretation * * * * EXAMINATION: CHEST RADIOGRAPH (2 VIEW FRONTAL and LATERAL) CLINICAL HISTORY: Adrenal mass (HCC) Pre-operative examination MQ: XC2_6 EXAM DATE/TIME: 11/08/2024 3:22 PM COMPARISON: No relevant prior studies available. RESULT: Lines, tubes, and devices: None. Lungs and pleura: No consolidation. No lung mass. No pleural effusion. No pneumothorax. Cardiomediastinal silhouette: Normal cardiomediastinal silhouette. Bones and soft tissues: Unremarkable. IMPRESSION: No acute radiographic abnormality. Import Clerk: PSCB Transcribe Date/Time: Nov 08 2024 3:27P Dictated by : TERRELL PASTRANA MD This examination was interpreted and the report reviewed and electronically signed by: TERRELL PASTRANA MD on Nov 08 2024 3:27PM EST [id number] Normal [facility] XR Chest PA and Lateralon IMPRESSION: No acute radiographic abnormality. Import Clerk: PSCB Transcribe Date/Time: Nov 08 2024 3:27P Dictated by : TERRELL PASTRANA MD This examination was interpreted and the report reviewed and electronically signed by: TERRELL PASTRANA MD on Nov 08 2024 3:27PM [facility] * * *Final Report* * * DATE OF EXAM: Nov 08 2024 3:22PM [id number] - XR CHEST 2V FRONTAL/LAT / PROCEDURE REASON: multiple diagnoses * * * * Physician Interpretation * * * * EXAMINATION: CHEST RADIOGRAPH (2 VIEW FRONTAL & LATERAL) CLINICAL HISTORY: Adrenal mass (HCC) Pre-operative examination MQ: XC2_6 EXAM DATE/TIME: 11/08/2024 3:22 PM COMPARISON: No relevant prior studies available. RESULT: Lines, tubes, and devices: None. Lungs and pleura: No consolidation. No lung mass. No pleural effusion. No pneumothorax. Cardiomediastinal silhouette: Normal cardiomediastinal silhouette. Bones and soft tissues: Unremarkable. DIVISION OF RADIOLOGY Provider, [facility] - 11/08/2024 * * *Final Report* * * DATE OF EXAM: Nov 08 2024 3:22PM [id number] - XR CHEST 2V FRONTAL/LAT / PROCEDURE REASON: multiple diagnoses * * * * Physician Interpretation * * * * EXAMINATION: CHEST RADIOGRAPH (2 VIEW FRONTAL & LATERAL) CLINICAL HISTORY: Adrenal mass (HCC) Pre-operative examination MQ: XC2_6 EXAM DATE/TIME: 11/08/2024 3:22 PM COMPARISON: No relevant prior studies available. RESULT: Lines, tubes, and devices: None. Lungs and pleura: No consolidation. No lung mass. No pleural effusion. No pneumothorax. Cardiomediastinal silhouette: Normal cardiomediastinal silhouette. Bones and soft tissues: Unremarkable. IMPRESSION IMPRESSION: No acute radiographic abnormality. Import Clerk: PSCB Transcribe Date/Time: Nov 08 2024 3:27P Dictated by : TERRELL PASTRANA MD This examination was interpreted and the report reviewed and electronically signed by: TERRELL PASTRANA MD on Nov 08 2024 3:27PM [facility] Radiology Study observation (narrative) [facility] XR Chest PA and LateralOrder ed By: Ccf Provider on 11-08-2024 [facility] CNOVon 11-05-2024 CNOV Office Visit (ENSUMN ) ----- VIOLET CHIN ([id number]) 1965 F Date Time Provider Department 11/05/24 9:00 AM JOHN BRADLEY During your visit today, we recorded the following information about you: Pulse Blood pressure Weight Height 65/minute 165/88 86.1 kg 1.575 m Yadira Doll MA 11/05/2024 8:57 AM Signed Thank you for choosing the [facility] Department of Endocrinology, Diabetes and Metabolism. Did you know that you need to call 48 hours in advance of your scheduled visit, if you are unable to make your appointment? The Endocrinology and Metabolism [facility] thanks you for your commitment, because patients not showing to their appointment results in a lost opportunity for patients to receive [facility] health care at the [facility]. To Cancel an appointment, please choose one of the following: - Call the Appointment Call Center at [phone] - From [employer], Go to Appointments - Cancel Appts If cancelling, consider your need to reschedule to prevent further delays in your care. To Schedule an appointment, please choose one of the following: - Call the Appointment Call Center at [phone] - From [employer], Go to Appointments - Request an Appt John Bradley MD 11/05/2024 9:37 AM Signed ENDOCRINE SURGERY NEW CONSULTATION NAME: Violet Chin CLINIC NO: [id number] : 1965 REFERRING PROVIDER: Nina Lerner MD Thank you for referring Violet Chin for the diagnosis of adrenal nodule. HPI: As you know, Violet Chin is a 59 year old female with a history of anxiety, depression, HTN, HLD, obesity BMI 34, preDM, marijuana and tobacco use who was incidentally found to have bilateral adrenal mass on CT abdomen done for abdominal pain. Subsequent dedicated adrenal CT showed 4.8 cm right adrenal mass with a pre contrast attenuation of 26 HU and washout of 17%. Adrenal lesion on the left measures 3.3 cm and has pre contrast attenuation of -6 HU with additional 3.3 cm with pre contrast attenuation 0 HU. She has a low ACTH (10. 3 nl 7.2-63.3 pg/mL), low DHEAS (37.3 nl 18.9-205 mcg/dL), high cortisol (13.7 <1.8mc/dL), normal renin/aldosterone, normal urine catecholamines and borderline elevated urine metanephrines. She has a Hgb A1C of 6 and no DEXA has been done. She was admitted for abdominal pain at the time of the diagnosis and found to have peptic ulcer disease. Surgical history is significant for , tubal ligation, laminectomy and eye surgery. Associated symptoms: Pain resolved. No florid hypercortisolism symptoms. Family history of endocrine tumors: No. History of previous cancer: No Pertinent medications (blood thinners, calcium, biotin, diuretics, lithium): No PHYSICAL EXAM: On physical exam, Violet Chin is well appearing, alert, and oriented and appears euthyroid. On inspection, the skin over the anterior neck is smooth, no mass is visualized. Palpation revealed neck to be supple. No lymphadenopathy was palpated on either side of the neck. Unlabored breathing on room air. RRR on pulse exam. Abdomen is obese with infraumbilical scar from prior , soft, non-distended, non-tender, no masses felt. LABS: Latest Ref Rng 10/25/2024 10/28/2024 Hours Collected hr 24 Total Volume mL 1675 Epinephrine, Ur per vol ug/L 4 Norepinephrine, Ur per vol ug/L 23 Dopamine, Ur per vol ug/L 170 Epinephrine, Ur ratio to PROPERTY MANAGEMENT INTERN 0 - 20 ug/g PROPERTY MANAGEMENT INTERN 6 Epinephrine, Ur 24hr 1 - 14 ug/d 7 Norepinephrine, Ur ratio to PROPERTY MANAGEMENT INTERN 0 - 45 ug/g PROPERTY MANAGEMENT INTERN 37 Norepinephrine, Ur 24hr 14 - 120 ug/d 39 Dopamine, Ur ratio to PROPERTY MANAGEMENT INTERN 0 - 250 ug/g PROPERTY MANAGEMENT INTERN 270 (H) Creatinine, Urine Per Volume mg/dL 63 Creatinine, Urine Per 24H 500 - 1400 mg/d 1055 Dopamine, Ur 24hr 71 - 485 ug/d 285 Catecholamines Interpretation See Note Metanephrine 52 - 341 ug/24 hr 365 (H) Normetanephrine 88 - 444 ug/24 hr 526 (H) Tot Metanephrine 140 - 785 ug/24 hr 891 (H) Urine Volume 24 hour mL 1,675 Urine Volume 24 hour mL 1,675 Period hr 24 Period hr 24 Aldosterone 0.0 - <35.4 ng/dL 8.4 Direct Renin 3.6 - 81.6 pg/mL 40.7 Aldosterone/Renin Ratio <3.8 0.2 Patient Upright or Supine Upright Creatinine 24 hr Ur 0.800 - 1.800 g/24 hr 0.951 ACTH 7.2 - 63.3 pg/mL 10.3 DHEA-S 18.9 - 205.0 ug/dL 37.3 Dexamethasone ng/dL <50.0 Potassium 3.7 - 5.1 mmol/L 3.6 (L) Cortisol,ON DEX,Post <1.8 ug/dL 13.7 (H) RADIOLOGY: IMPRESSION: 1. Indeterminate 4.8 cm mass in the right adrenal, worrisome for adrenal malignancy. If no cancer history, consider resection because of the possibility of an adrenocortical carcinoma. If there is a cancer history consider PET or biopsy the 1.1 cm left retroperitoneal lymph node demonstrate maintained central fatty hilum. 2. 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 ACTIONABLE RESULT: FOLLOW-UP Acuity: Actionable Findings: Adrenal Routing Code: (more content not included)... [facility] [facility] Telephone (SONIA) ----- VIOLET CHIN ([id number]) 1965 F Date Time Provider Department 10/31/24 JOHN BRADLEY During your visit today, we recorded the following information about you: Nalini Goode 10/31/2024 4:15 PM Signed 10/31/2024 INTAKE PENDING-LFT MSG ON VMX AND SENT [facility] ENDOCRINE SURGERY PATIENT WORKSHEET Initial Call Date: October 31, 2024 Reason for Consult/ Referral: Adrenal Mass PATIENT DEMOGRAPHICS Name: Violet Chin CCF#: [id number] : 1965 AGE: [age] year old Contact Numbers: Home: (home) Work: There is no work phone number on file. PATIENT PHYSICIAN INFORMATION Referring Doctor: Address: Phone: [employer] B[employer] Architect: Address: Phone: PCP: Erick Lemus [address] [place] [address] PAST TREATMENT Office notes: SEE [facility] Medications: NONE THAT APPLY Pre-Visit Testing Latest Ref Rng 10/25/2024 10/28/2024 Metanephrine 52 - 341 ug/24 hr 365 (H) Normetanephrine 88 - 444 ug/24 hr 526 (H) Tot Metanephrine 140 - 785 ug/24 hr 891 (H) Urine Volume 24 hour mL 1,675 Urine Volume 24 hour mL 1,675 Period hr 24 Period hr 24 Aldosterone 0.0 - <35.4 ng/dL 8.4 Direct Renin 3.6 - 81.6 pg/mL 40.7 Aldosterone/Renin Ratio <3.8 0.2 Patient Upright or Supine Upright Creatinine 24 hr Ur 0.800 - 1.800 g/24 hr 0.951 ACTH 7.2 - 63.3 pg/mL 10.3 DHEA-S 18.9 - 205.0 ug/dL 37.3 Dexamethasone ng/dL <50.0 Potassium 3.7 - 5.1 mmol/L 3.6 (L) Cortisol,ON DEX,Post <1.8 ug/dL 13.7 (H) Imaging Reports: SEE EPIC CD of Images: SEE EPIC FNA: no FNA Slides: N/A Has the patient ever had thyroid or parathyroid surgery before: No Operative Reports: NONE AVAILABLE Pathology Reports: NONE AVAILABLE Allergies As of Date: 10/31/2024 Noted Allergy Reaction PROZAC (FLUOXETINE) 02/04/2021 8 - GI Upset Date Reviewed: 10/29/2024 Reviewed by: Eleonora Dumont MA - Fully Assessed Reason for Visit: Consult [173] Cmt: FACE SHEET Prescriptions as of 10/31/2024 - lisinopril-hydroCHLOROthi azide (ZESTORETIC) 10-12.5 mg per tablet Take 1 tablet by mouth once daily. - sertraline (ZOLOFT) 100 mg tablet Take 1 tablet by mouth once daily. - pantoprazole DR (PROTONIX) 40 mg tablet Take 1 tablet by mouth every 12 hours. - sucralfate (CARAFATE) 1 gram tablet Take 1 g by mouth four times daily. - BIOTIN ORAL Take 1 tablet by mouth once daily. - dexAMETHasone (DECADRON) 1 mg tablet Take the tablet at 11 pm and go for labs the next morning on fasting at 8 am - buPROPion SR (WELLBUTRIN SR) 150 mg 12 hr tablet Take 1 tablet by mouth two times a day. - atorvastatin (LIPITOR) 80 mg tablet Take 1 tablet by mouth daily at bedtime. For cholesterol. Problem List As Of Date 10/31/2024 Noted Resolved Essential hypertension [I10] 09/28/2018 Anxiety with depression [F41.8] 09/28/2018 Smoker [F17.200] 09/28/2018 Obesity (BMI 30-39.9) [E66.9] History of COVID-19 [Z86.16] 08/2020 Marijuana use [F12.90] Tobacco use [Z72.0] Mixed hyperlipidemia [E78.2] Encounter Status:Closed by NALINI GOODE on 10/31/24 [facility] CNOVbrii 10-29-2024 CNOV Office Visit (ENWSTR ) ----- VIOLET CHIN ([id number]) 1965 F Date Time Provider Department 10/29/24 4:00 PM NINA LERNER During your visit today, we recorded the following information about you: Temperature Pulse Weight 98.8 degrees 64/minute 86.4 kg Nina Lerner MD 11/02/2024 12:13 AM Addendum [facility] Follow up note Patient referred by: Aissatou Mac APRN. [employer] Chief compliant: B/L Adrenal nodules History of Present Illness: Ms. Violet Chin is a 58 year old female coming today for follow up of bilateral adrenal nodules. She also has a hx of duodenal ulcers and is on protonix, carafate for the same Initial visit /last visit 06/28/2024. She was advised to return in 6 to 8 weeks after labs were completed but she did not complete labs, imaging or follow up as discussed History in brief, she underwent CT abdomen for abdominal pain when adrenal nodules were incidentally found in bilateral adrenal glands. She denied any recent significant unintentional changes in weight, other than weight loss of about 25 lbs with intermittent fasting/low carb diet, but has gained about 5 lbs after Denied any palpitations, tremors, sweaty episodes, headaches No concerns for easy bruising, stretch albert, proximal muscle weakness or excess facial.body hair Previous use of Steroids, oral, inhalers, injections: No chronic use Today she is following up after labs and CT adrenal Labs are still in process; some results have been received, but many are pending. Will update labs once received - Took dexamethasone pill as instructed before urine collection, and cortisol levels are high Past Medical History: PAST MEDICAL HISTORY Diagnosis Date Anxiety and depression History of COVID-19 08/2020 HTN (hypertension) Lumbar herniated disc s/p laminectomy-pain free Marijuana use Mixed hyperlipidemia Obesity (BMI 30-39.9) Prediabetes Tobacco use Surgical History: PAST SURGICAL HISTORY Procedure Laterality Date SNGL 1986 SNGL 1987 SNGL 2000 EYE SURGERY HX 1972 correct lazy eye LAMINECTOMY W/O FFD 08/08 VERT SEG LUMBAR 2007 TUBAL LIGATION 2000 Family Medical History: FAMILY HISTORY Problem Relation Age of Onset COPD Mother No Known Problems Father No Known Problems Sister No Known Problems Sister No Known Problems Brother No Known Problems Brother Cancer Maternal Grandmother No Known Problems Daughter No Known Problems Daughter No Known Problems Son Adrenal Insufficiency No Family History Social History: Social History Tobacco Use Smoking status: Every Day Current packs/day: 1.00 Average packs/day: 1 pack/day for 30.0 years (30.0 ttl pk-yrs) Types: Cigarettes Passive exposure: Current Smokeless tobacco: Never Substance Use Topics Alcohol use: No Drug use: Not Currently Types: Marijuana Comment: occasionally- 2 times a year Allergies: ALLERGIES Allergen Reactions Prozac [Fluoxetine] GI Upset Current medications: Current Outpatient Medications Medication Sig lisinopril-hydroCHLOROthi azide (ZESTORETIC) 10-12.5 mg per tablet Take 1 tablet by mouth once daily. sertraline (ZOLOFT) 100 mg tablet Take 1 tablet by mouth once daily. pantoprazole DR (PROTONIX) 40 mg tablet Take 1 tablet by mouth every 12 hours. BIOTIN ORAL Take 1 tablet by mouth once daily. (Patient taking differently: Take 1 tablet by mouth once daily. On hold) buPROPion SR (WELLBUTRIN SR) 150 mg 12 hr tablet Take 1 tablet by mouth two times a day. atorvastatin (LIPITOR) 80 mg tablet Take 1 tablet by mouth daily at bedtime. For cholesterol. sucralfate (CARAFATE) 1 gram tablet Take 1 g by mouth four times daily. (Patient not taking: Reported on 10/29/2024) dexAMETHasone (DECADRON) 1 mg tablet Take the tablet at 11 pm and go for labs the next morning on fasting at 8 am (Patient not taking: Reported on 10/29/2024) No current facility-administered medications for this visit. Review of Systems: 10 point ROS was reviewed and negative unless indicated in the HPI Physical exam: Pulse 64 Temp 37.1 ?C (98.8 ?F) (Temporal Artery) Wt 86.4 kg (190 lb 6.4 oz) SpO2 97% BMI 34.82 kg/m? General Appearance: Well appearing, alert, in no acute distress, well-hydrated, well nourished, obese body habitus Skin: Skin color, texture, turgor normal, no suspicious rashes or lesions. Eyes: Anicteric sclera. Extraocular movements are intact. Neck: Supple, no adenopathy; thyroid symmetric, normal size, no bruits. Lungs: unlabored breathing on room air Heart: Regular leatha and rhythm Abdomen: no typical concerning features noted, obese abdomen Extremities: No deformities, edema, skin discoloration, clubbing or cyanosis. Musculoskeletal: No joint swelling, deformity, spinal tenderness Peripheral Pulses: Normal. (more content not included)... Normal [facility] CATECHOLAMINES FRACTIONATED, URINE FREEon 10-28-2024 CATECHOLAMINES INTERPRETATION See Note Normal [facility] Comment on above: Order Comment: Speci men Type: URINE SPECIMENOrdering Facility: [facility] Address: [address] [place] [address] Result Comment: TEST INFORMATION: Catecholamines Fractionated, Urine Free Smaller increases in catecholamine concentrations (less than two times the upper limit) usually are the result of physiological stimuli, drugs, or improper specimen collection. Significant elevation of one or more catecholamines (three or more times the upper reference limit) is associated with an increased probability of a neuroendocrine tumor. Access complete set of age- and/or gender-specific reference intervals for this test in the [facility] Test Directory ([employer]). This test was developed and its performance characteristics determined by [employer]. It has not been cleared or approved by the [place] Food and Drug Administration. This test was performed in a CLIA certified laboratory and is intended for clinical purposes. Performed By: #### U RCAT2 ####[facility] LABORATORIESCLIA [id number] [place] [address] CREATININE, URINE PER 24H 1055 mg/d Normal 500-1400 [facility] Comment on above: Order Comment: Speci men Type: URINE SPECIMENOrdering Facility: [facility] Address: [address] [place] [address] Result Comment: Perf ormed By: [facility] [address] [place] [address] Weatherization Coordinator: Iván Mcgee MD, PhD [facility] Number: [id number] Performed By: #### U RCAT2 ####[facility] [id number] [place] [address] CREATININE, URINE PER VOLUME 63 mg/dL Normal [facility] Comment on above: Order Comment: Speci men Type: URINE SPECIMENOrdering Facility: [facility] Address: [address] [place] [address] Performed By: #### U RCAT2 ####[facility]CLIA [id number] [place] [address] DOPAMINE, UR 24HR 285 ug/d Normal 71-485 [facility] Comment on above: Order Comment: Speci men Type: URINE SPECIMENOrdering Facility: [facility] Address: [address] [place] [address] Result Comment: REFE RENCE INTERVAL: Dopamine, Urine - ug/d Access complete set of age- and/or gender-specific reference intervals for this test in the [facility] Test Directory ([employer]). Performed By: #### U RCAT2 ####[facility]IESCLIA [id number] [place] [address] DOPAMINE, UR PER VOL 170 ug/L Normal [facility] Comment on above: Order Comment: Speci men Type: URINE SPECIMENOrdering Facility: [facility] Address: [address] [place] [address] Performed By: #### U RCAT2 ####[facility]IESCLIA [id number] [place] [id number] DOPAMINE, UR RATIO TO PROPERTY MANAGEMENT INTERN 270 ug/g PROPERTY MANAGEMENT INTERN High 0-250 [facility] Comment on above: Order Comment: Speci men Type: URINE SPECIMENOrdering Facility: [facility] Address: [address] [place] [address] Performed By: #### U RCAT2 ####[facility]IESCLIA [id number] [place] [address] EPINEPHRINE, UR 24HR 7 ug/d Normal 1-14 [facility] Comment on above: Order Comment: Speci men Type: URINE SPECIMENOrdering Facility: [facility] Address: [address] [place] [address] Result Comment: REFE RENCE INTERVAL: Epinephrine, Urine - ug/d Access complete set of age- and/or gender-specific reference intervals for this test in the [facility] Test Directory ([employer]). Performed By: #### U RCAT2 ####[facility]IESCLIA [id number] [place] [address] EPINEPHRINE, UR PER VOL 4 ug/L Normal [facility] Comment on above: Order Comment: Speci men Type: URINE SPECIMENOrdering Facility: [facility] Address: [address] [place] [address] Performed By: #### U RCAT2 ####[facility]IESCLIA [id number] [place] [address] EPINEPHRINE, UR RATIO TO PROPERTY MANAGEMENT INTERN 6 ug/g PROPERTY MANAGEMENT INTERN Normal 0-20 [facility] Comment on above: Order Comment: Speci men Type: URINE SPECIMENOrdering Facility: [facility] Address: [address] [place] [address] Performed By: #### U RCAT2 ####[facility]IESCLIA [id number] [place] [address] HOURS COLLECTED 24 hr Normal [facility] Comment on above: Order Comment: Speci men Type: URINE SPECIMENOrdering Facility: [facility] Address: [address] [place] [address] Result Comment: Per 24h calculations are provided to aid interpretation for collections with a duration of 24 hours and an average daily urine volume. For specimens with notable deviations in collection time or volume, ratios of analytes to a corresponding urine creatinine concentration may assist in result interpretation. Performed By: #### U RCAT2 ####[facility]IESCLIA [id number] [place] [address] NOREPINEPHRINE, UR 24HR 39 ug/d Normal 14-120 [facility] Comment on above: Order Comment: Speci men Type: URINE SPECIMENOrdering Facility: [facility] Address: [address] [place] [address] Result Comment: REFE RENCE INTERVAL: Norepinephrine, Urine - ug/d Access complete set of age- and/or gender-specific reference intervals for this test in the [facility] Test Directory ([employer]). Performed By: #### U RCAT2 ####[facility]IESCLIA [id number] [place] [address] NOREPINEPHRINE, UR PER VOL 23 ug/L Normal [facility] Comment on above: Order Comment: Speci men Type: URINE SPECIMENOrdering Facility: [facility] Address: [address] [place] [address] Performed By: #### U RCAT2 ####[facility]IESCLIA [id number] [place] [address] NOREPINEPHRINE, UR RATIO TO PROPERTY MANAGEMENT INTERN 37 ug/g PROPERTY MANAGEMENT INTERN Normal 0-45 [facility] Comment on above: Order Comment: Speci men Type: URINE SPECIMENOrdering Facility: [facility] Address: [address] [place] [address] Performed By: #### U RCAT2 ####[facility]IESCLIA [id number] [place] [address] TOTAL VOLUME 1675 mL Normal [facility] Comment on above: Order Comment: Speci men Type: URINE SPECIMENOrdering Facility: [facility] Address: [address] [place] [address] Performed By: #### U RCAT2 ####[facility]IESCLIA [id number] [place] [address] CREATININE, 24 HOUR URINEon 10-28-2024 Creatinine (24H U) [Mass/Time] 0.951 g/24 hr Normal 0.800-1.800 [facility] Comment on above: Order Comment: Speci men Type: URINE SPECIMENOrdering Facility: [facility] Address: [address] [place] [address] Performed By: #### U CRD ####[facility] LABCLIA [id number] [place] [address] [place] Cortis p Dex SerPl-ncon Cortisol post dose dexamethasone [Mass/Vol] 13.7 ug/dL High <1.8 [facility] Comment on above: Order Comment: Speci men Type: BLOOD SPECIMENOrdering Facility: [facility] Address: [address] [place] [address] Result Comment: Afte r overnight 1 mg dexamethasone, an neuroscientist cortisol of <1.8 ug/dL may indicate an adequate cortisol suppression. This result should be interpreted within the clinical context and other test results. Bernadine et al. Evidence for the Low Dose Dexamethasone Suppression Test to Screen for Nordman's Syndrome - Recommendations for a Protocol for Biochemistry Laboratories. 1996 [place]. Clin. Biochem. 34 222-229. Performed By: #### 4 7851-1 ####[facility] [id number] [address] [id number], [place] [address] [place] METANEPHRINES 24H URon 10-28 Metanephrines (24H U) [Mass/Time] 891 ug/24 hr High 140-785 [facility] Comment on above: Order Comment: Speci men Type: URINE SPECIMENOrdering Facility: [facility] Address: [address] [place] [address] Result Comment: Urin e Metanephrine test performed by Liquid Chromatography Tandem Mass Spectrometry (LC-MS/MS). Results obtained with different methods or kits cannot be used interchangeably. This test was developed, and its performance characteristics determined by the [facility] Department of Pathology and Laboratory Medicine. It has not been cleared or approved by the FDA. The [facility] Department of Pathology and Laboratory Medicine is regulated under CLIA as qualified to perform high-complexity testing. This test is used for clinical purposes. It should not be regarded as investigational or for research. Performed By: #### U METAN ####[facility] LABIA [id number] [place] [address] [place] NORMETANEPHRINES, UR 526 ug/24 hr High 88-444 [facility] Comment on above: Order Comment: Speci men Type: URINE SPECIMENOrdering Facility: [facility] Address: [address] [place] [address] Performed By: #### U METAN ####[facility] LABIA [id number] [place] [id number] [place] PERIOD (HRS) 24 hr Normal [facility] Comment on above: Order Comment: Speci men Type: URINE SPECIMENOrdering Facility: [facility] Address: [address] [place] [address] Performed By: #### U METAN ####[facility] LABIA [id number] [place] [id number] [place] Performed By: #### U CRD ####[facility] [id number] [address] [address] [place] Specimen volume (24H U) 1.675 L Normal [facility] Comment on above: Order Comment: Speci men Type: URINE SPECIMENOrdering Facility: [facility] Address: [address] [place] [address] Performed By: #### U METAN ####[facility] [id number] [address] [place] Performed By: #### U CRD ####[facility] LABIA [id number] [place] [address] [place] ACTH Plas-mCncon 10-25-2024 Corticotropin (P) [Mass/Vol] 10.3 pg/mL Normal 7.2-63.3 [facility] Comment on above: Order Comment: Speci men Type: BLOOD SPECIMENOrdering Facility: [facility] Address: [address] [place] [address] Result Comment: ACTH Reference Range: 7-10 am: 7.2 - 63.3 pg/mL Performed By: #### 2 141-0 ####[facility] LABIA [id number] [address] [place] ALDOSTERONE/DIRECT RENIN RAT IOon 10-25-2024 TIO RENIN RATIO 0.2 Normal <3.8 [facility] Comment on above: Order Comment: Speci men Type: BLOOD SPECIMENOrdering Facility: [facility] Address: [address] [place] [address] Result Comment: A ra misha of aldosterone in ng/dL to direct renin in pg/mL greater than or equal to 3.8 is a positive screening test result for primary aldosteronism, when aldosterone is greater than or equal to 15 ng/dL. Performed By: #### A LDREN ####[facility] LABIA [id number] [place] [address] [place] Aldosterone [Mass/Vol] 8.4 ng/dL Normal 0.0-<35.4 [facility] Comment on above: Order Comment: Speci men Type: BLOOD SPECIMENOrdering Facility: [facility] Address: [address] [place] [address] Result Comment: The reference interval for serum/plasma aldosterone is based on a normal sodium intake and upright position. High sodium intake may suppress aldosterone and low sodium intake may increase aldosterone. The supine reference interval is <23.7 ng/dL. A ratio of aldosterone in ng/dL to direct renin in pg/mL greater than or equal to 3.8 is a positive screening test result for primary aldosteronism, when aldosterone is greater than or equal to 15 ng/dL. Performed By: #### A LDREN ####[facility] [id number] [place] [address] [place] DIRECT RENIN 40.7 pg/mL Normal 3.6-81.6 [facility] Comment on above: Order Comment: Speci men Type: BLOOD SPECIMENOrdering Facility: [facility] Address: [address] [place] [address] Result Comment: The reference interval for direct renin is based on an upright position. The supine reference intervals are: Age <41 years: 3.2-33.2 pg/mL Age >=41 years: 2.5-45.1 pg/mL A ratio of aldosterone in ng/dL to direct renin in pg/mL greater than or equal to 3.8 is a positive screening test result for primary aldosteronism, when aldosterone is greater than or equal to 15 ng/dL. Performed By: #### A LDREN ####[facility] [id number] [place] [address] [place] PATIENT UPRIGHT OR SUPINE Upright Normal [facility] Comment on above: Order Comment: Speci men Type: BLOOD SPECIMENOrdering Facility: [facility] Address: [address] [place] [address] Performed By: #### A LDREN ####[facility] LABCLIA [id number] [place] [address] [place] DEXAMETHASONEon 10-25-2024 DEXAMETHASONE <50.0 Normal [facility] Comment on above: Order Comment: Speci men Type: BLOOD SPECIMENOrdering Facility: [facility] Address: [address] [place] [address] Result Comment: INTE RPRETIVE INFORMATION: Dexamethasone, Serum or Plasma by LC-MS/MS Adults baseline: Less than 50 ng/dL 8:00 AM draw following 1 mg dexamethasone between 11:00 pm and 12:00 am the previous evenin - 295 ng/dL 8:00 AM draw following 8 mg dexamethasone (4 x 2 mg doses) between 11:00 pm and 12:00 am the previous evenin - 2850 ng/dL This test was developed and its performance characteristics determined by [facility]. It has not been cleared or approved by the US Food and Drug Administration. This test was performed in a CLIA certified laboratory and is intended for clinical purposes. Performed By: [facility] [address] [place] [id number] [employer]atherization Coordinator: Iván Mcgee MD, PhD CLIA Number: [id number] Performed By: #### D EMILIANO ####[facility] [id number] [place] [address] DHEA-S BLDon 10-25-2024 DHEA-S [Mass/Vol] 37.3 ug/dL Normal 18.9-205.0 [facility] Comment on above: Order Comment: Speci men Type: BLOOD SPECIMENOrdering Facility: [facility] Address: [address] [place] [address] Result Comment: Refe rence ranges are age and gender specific. For additional information, reference range tables can be found in the laboratory test directory. The normal values are based on the following source: Dehydroepiandrosterone sulfate (DHEA S) [package insert V 17.0 [employer]]. [facility], [place], [place]: March 2013. Performed By: #### D SARA, K1 ####[facility] LABCLIA [id number] [place] [address] [place] POTASSIUMon 10-25-2024 Potassium [Moles/Vol] 3.6 mmol/L Low 3.7-5.1 [facility] Comment on above: Order Comment: Speci men Type: BLOOD SPECIMENOrdering Facility: [facility] Address: [address] [place] [address] Performed By: #### D SARA, ####[facility] LABCLIA [id number] [place] [address] [place] CNPNon 10-16-2024 CNPN Telephone (ENWSTR) ----- VIOLET CHIN ([id number]) 1965 F Date Time Provider Department 10/16/24 NINA LERNER ENWSTR During your visit today, we recorded the following information about you: Nina Lerner MD 10/16/2024 9:06 AM Signed Please let the patient know to follow up at the soonest possible. She should bring with her, the results of labs recommended on last visit oJvita Azul RN 10/16/2024 9:39 AM Signed Pt is scheduled with Dr. Lerner on 10/29/2024. Sent her a [employer] message reminding her to bring urine lab results as ordered at previous visit in June. 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 #:[id number] METANEPHRINES 24H UR [SQUMETAN] Order #: [id number]. #:[id number] CATECHOLAMINES FRACTIONATED, URINE FREE [SQURCAT2] Order #: [id number] FUTURE Prescriptions as of 10/24/2024 - lisinopril-hydroCHLOROthi azide (ZESTORETIC) 10-12.5 mg per tablet Take 1 tablet by mouth once daily. - sertraline (ZOLOFT) 100 mg tablet Take 1 tablet by mouth once daily. - pantoprazole DR (PROTONIX) 40 mg tablet Take 1 tablet by mouth every 12 hours. - sucralfate (CARAFATE) 1 gram tablet Take 1 g by mouth four times daily. - BIOTIN ORAL Take 1 tablet by mouth once daily. - dexAMETHasone (DECADRON) 1 mg tablet Take the tablet at 11 pm and go for labs the next morning on fasting at 8 am - buPROPion SR (WELLBUTRIN SR) 150 mg 12 hr tablet Take 1 tablet by mouth two times a day. - atorvastatin (LIPITOR) 80 mg tablet Take 1 tablet by mouth daily at bedtime. For cholesterol. Problem List As Of Date 10/16/2024 Noted Resolved Essential hypertension [I10] 09/28/2018 Anxiety with depression [F41.8] 09/28/2018 Smoker [F17.200] 09/28/2018 Obesity (BMI 30-39.9) [E66.9] History of COVID-19 [Z86.16] 08/2020 Marijuana use [F12.90] Tobacco use [Z72.0] Mixed hyperlipidemia [E78.2] Encounter Status:Closed by JOVITA AZUL on 10/16/24 [facility] Deni 10-14-2024 CNPN Telephone (RADMN) ----- EDWARDVIOLET ([id number]) 1965 F Date Time Provider Department 10/14/24 CASIE WEISS RADMN During your visit today, we recorded the following information about you: Allergies As of Date: 10/14/2024 Noted Allergy Reaction PROZAC (FLUOXETINE) 02/04/2021 8 - GI Upset Date Reviewed: 10/11/2024 Reviewed by: Rylie Petit, RT(R) - Fully Assessed Reason for Visit: Mammogram Result Call Back [1951] Prescriptions as of 10/14/2024 - lisinopril-hydroCHLOROthi azide (ZESTORETIC) 10-12.5 mg per tablet Take 1 tablet by mouth once daily. - sertraline (ZOLOFT) 100 mg tablet Take 1 tablet by mouth once daily. - pantoprazole DR (PROTONIX) 40 mg tablet Take 1 tablet by mouth every 12 hours. - sucralfate (CARAFATE) 1 gram tablet Take 1 g by mouth four times daily. - BIOTIN ORAL Take 1 tablet by mouth once daily. - dexAMETHasone (DECADRON) 1 mg tablet Take the tablet at 11 pm and go for labs the next morning on fasting at 8 am - buPROPion SR (WELLBUTRIN SR) 150 mg 12 hr tablet Take 1 tablet by mouth two times a day. - atorvastatin (LIPITOR) 80 mg tablet Take 1 tablet by mouth daily at bedtime. For cholesterol. Problem List As Of Date 10/14/2024 Noted Resolved Essential hypertension [I10] 09/28/2018 Anxiety with depression [F41.8] 09/28/2018 Smoker [F17.200] 09/28/2018 Obesity (BMI 30-39.9) [E66.9] History of COVID-19 [Z86.16] 08/2020 Marijuana use [F12.90] Tobacco use [Z72.0] Mixed hyperlipidemia [E78.2] Encounter Status:Closed by ILANA DOLAN on 10/14/24 [facility] CNPN Telephone (OBGYWM) ----- EDWARDVIOLET Ramírez ([id number]) 1965 F Date Time Provider Department 10/14/24 ERICK LEMUS OBGYWPaz During your visit today, we recorded the following information about you: Mouna Gallardo 10/14/2024 9:49 AM Signed Hello, Patient called in asking if she needs lab orders for Dr. Lemus and Dr. Lerner.I do not see any active orders. Please advise, thank you! Erick Castañeda MD 10/14/2024 9:53 AM Signed Reordered labs from 05/15 that were not completed. Can come in this week or after OV with Dr. Lerner depending on their recommendations. Glendy Gordon MA 10/14/2024 11:16 AM Signed Left detailed message on [employer]. Allergies As of Date: 10/14/2024 Noted Allergy Reaction PROZAC (FLUOXETINE) 02/04/2021 8 - GI Upset Date Reviewed: 10/11/2024 Reviewed by: Rylie Petit, RT(R) - Fully Assessed Reason for Visit: Orders [681] Cmt: Lab orders needed Primary Visit Diagnosis:Essential hypertension [I10] Other Visit Diagnoses:Mixed hyperlipidemia [E78.2] Hyperglycemia [R73.9] Order(s):COMPREHENSIVE METABOLIC PANEL [SQCMP] Order #: [id number] FUTURE HEMOGLOBIN A1C [RIWPD2J] Order #: [id number] FUTURE LIPID PANEL, NONFASTING [SQLIPNF] Order #: [id number] FUTURE Prescriptions as of 10/14/2024 - lisinopril-hydroCHLOROthi azide (ZESTORETIC) 10-12.5 mg per tablet Take 1 tablet by mouth once daily. - sertraline (ZOLOFT) 100 mg tablet Take 1 tablet by mouth once daily. - pantoprazole DR (PROTONIX) 40 mg tablet Take 1 tablet by mouth every 12 hours. - sucralfate (CARAFATE) 1 gram tablet Take 1 g by mouth four times daily. - BIOTIN ORAL Take 1 tablet by mouth once daily. - dexAMETHasone (DECADRON) 1 mg tablet Take the tablet at 11 pm and go for labs the next morning on fasting at 8 am - buPROPion SR (WELLBUTRIN SR) 150 mg 12 hr tablet Take 1 tablet by mouth two times a day. - atorvastatin (LIPITOR) 80 mg tablet Take 1 tablet by mouth daily at bedtime. For cholesterol. Problem List As Of Date 10/14/2024 Noted Resolved Essential hypertension [I10] 09/28/2018 Anxiety with depression [F41.8] 09/28/2018 Smoker [F17.200] 09/28/2018 Obesity (BMI 30-39.9) [E66.9] History of COVID-19 [Z86.16] 08/2020 Marijuana use [F12.90] Tobacco use [Z72.0] Mixed hyperlipidemia [E78.2] Encounter Status:Closed by GLENDY GORDON on 10/14/24 Normal [facility] CT ADRENAL WO/W IVCONon 03-1 CT ADRENAL WO/W IVCON * * *Final Report* * * DATE OF EXAM: Oct 14 2024 3:45PM [facility] 0536 - CT ADRENAL WO/W IVCON / PROCEDURE REASON: Disorder of adrenal gland (HCC) * * * * Physician Interpretation * * * * CT ABDOMEN / ADRENAL GLANDS WITHOUT AND WITH IV CONTRAST CLINICAL HISTORY: Abnormal adrenal glands TECHNIQUE: Thin section spiral imaging through the adrenal glands was performed without and with contrast using washout technique. Oral contrast is not administered per protocol. Contrast: IV: 100 ml of Omnipaque 350 Oral Contrast: None CT Radiation dose: Integrated Dose-length product (DLP) for this visit = 1459 mGy*cm. CT Dose Reduction Employed: Automated exposure control(AEC) and iterative recon COMPARISON: Report available through [email or web address] for outside CT abdomen 04/16/2024 , no images available. RESULT: Adrenal glands: Right adrenal gland: Hypoattenuating nodular thickening of the crural limb, adjacent isoattenuating mass in the anterior medial limb. Adrenal Lesion #1 characteristics: crural limb - Dimensions: 3.0 x 1.7 cm - Pre-contrast attenuation: 3 H.U. - Portal phase attenuation: 35 H.U. - Delayed phase attenuation: 9 H.U. - Absolute wash-out: 81% consistent with an adenoma. - Relative wash-out: 74% consistent with an adenoma. Adrenal Lesion #2 characteristics: mass in the anterior limb - Dimensions: 4.3 x 2.9 x 4.8 cm - Pre-contrast attenuation: 26 H.U. - Portal phase attenuation: 56 H.U. - Delayed phase attenuation: 51 H.U. - Absolute wash-out: 17% Absolute washout less than 60% is indeterminate. - Relative wash-out: 9% Absolute washout less than 60% is indeterminate. Left adrenal gland: Hypoattenuating nodular thickening of the posterior medial and posterior lateral limbs Adrenal Lesion #3 characteristics: Posterior medial limb - Dimensions: 3.3 x 1.9 cm cm - Pre-contrast attenuation: -6 H.U. - Portal phase attenuation: 23 H.U. - Delayed phase attenuation: -4 H.U. - Absolute wash-out: 93% consistent with an adenoma. - Relative wash-out: 100% consistent with an adenoma. Adrenal Lesion #4characteristics: Posterior lateral limb - Dimensions: 3.3 x 1.9 cm cm - Pre-contrast attenuation: 0 H.U. - Portal phase attenuation: 17 H.U. - Delayed phase attenuation: 4 H.U. - Absolute wash-out: 77% consistent with an adenoma. - Relative wash-out: 77% consistent with an adenoma. Abdomen Liver: No mass. A 1.8 cm cyst is present in the left hepatic dome, 1.2 cm cyst in the segment 4A and NPI there is a cyst in the inferior right hepatic lobe. Biliary: No bile duct dilation. Gallbladder is unremarkable. Spleen: No mass. No splenomegaly. Pancreas: No mass or duct dilation. Kidneys: Punctate calcifications in the renal pelves bilaterally are likely vascular in nature. A 1.4 cm cortical cyst is present in the anterior aspect of the inferior renal pole, and 1.9 cm parapelvic cyst in the interpolar region. GI tract: A 3.0 cm lipoma is present in the descending duodenum. No dilation or wall thickening. Appendix is normal. Lymph nodes: No abdominal lymphadenopathy. Mesentery/Peritoneum: No ascites or mass. Vasculature: - Abdominal aorta and iliac arteries: Atherosclerotic calcifications without aneurysm. - Celiac and SMA: Patent without stenosis. - Portal venous system (SMV, splenic vein, portal vein and branches): Patent. - Hepatic veins: Patent. - Other: None Bones/Soft Tissues: Lower lumbar spondylosis. Lower Thorax: No consolidation or pleural effusion Localizer images: No additional findings IMPRESSION: 1. Indeterminate 4.8 cm mass in the right adrenal, worrisome for adrenal malignancy. If no cancer history, consider resection because of the possibility of an adrenocortical carcinoma. If there is a cancer history consider PET or biopsy the 1.1 cm left retroperitoneal lymph node demonstrate maintained central fatty hilum. 2. 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 ACTIONABLE RESULT: FOLLOW-UP Acuity: Actionable Findings: Adrenal Routing Code: AD_1 Recommendation: SUBSPECIALTY CONSULTATION SUGGESTED Time Frame: COMMUNICATION: Results will be communicated with the ordering provider via [employer] staff message or phone message by [employer] within 2 business days of report finalization. --END OF FINDING-- Import Clerk: ALIZA Transcribe Date/Time: Oct 14 2024 3:23P Dictated by : ANISH BECK MD This examination was interpreted and the report reviewed and electronically signed by: ANISH BECK MD on Oct 14 2024 4:24PM EST [id number] ACTIONABLE Invalid Interpretation Code [facility] CT Adrenal gland WO and W co ntrast IVOrdered By: Ccf Provider on 10-14-2024 Interpretation and review of laboratory results Abnormal [facility] Radiology Result ACTIONABLE Abnormal [facility] Comment on above: This report contains an incidental or actionable finding. This finding may be a new finding separate from the reason your provider ordered the imaging test or it may be an already known finding that needs additional or continued follow-up. Because of this incidental or actionable finding, you may need another test (imaging or a different type of test). Please contact your provider for the next steps. [facility] CT Adrenal gland WO and W co ntrast Gris 10-14-2024 IMPRESSION: 1. Indeterminate 4.8 cm mass in the right adrenal, worrisome for adrenal malignancy. If no cancer history, consider resection because of the possibility of an adrenocortical carcinoma. If there is a cancer history consider PET or biopsy the 1.1 cm left retroperitoneal lymph node demonstrate maintained central fatty hilum. 2. 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 ACTIONABLE RESULT: FOLLOW-UP Acuity: Actionable Findings: Adrenal Routing Code: AD_1 Recommendation: SUBSPECIALTY CONSULTATION SUGGESTED Time Frame: COMMUNICATION: Results will be communicated with the ordering provider via [employer] staff message or phone message by [employer] within 2 business days of report finalization. --END OF FINDING-- Import Clerk: ALIZA Transcribe Date/Time: Oct 14 2024 3:23P Dictated by : ANISH BECK MD This examination was interpreted and the report reviewed and electronically signed by: ANISH BECK MD on Oct 14 2024 4:24PM [facility] * * *Final Report* * * DATE OF EXAM: Oct 14 2024 3:45PM [facility] 0536 - CT ADRENAL WO/W IVCON / PROCEDURE REASON: Disorder of adrenal gland (HCC) * * * * Physician Interpretation * * * * CT ABDOMEN / ADRENAL GLANDS WITHOUT AND WITH IV CONTRAST CLINICAL HISTORY: Abnormal adrenal glands TECHNIQUE: Thin section spiral imaging through the adrenal glands was performed without and with contrast using washout technique. Oral contrast is not administered per protocol. Contrast: IV: 100 ml of Omnipaque 350 Oral Contrast: None CT Radiation dose: Integrated Dose-length product (DLP) for this visit = 1459 mGy*cm. CT Dose Reduction Employed: Automated exposure control(AEC) and iterative recon COMPARISON: Report available through [facility] for outside CT abdomen 04/16/2024 , no images available. RESULT: Adrenal glands: Right adrenal gland: Hypoattenuating nodular thickening of the crural limb, adjacent isoattenuating mass in the anterior medial limb. Adrenal Lesion #1 characteristics: crural limb - Dimensions: 3.0 x 1.7 cm - Pre-contrast attenuation: 3 H.U. - Portal phase attenuation: 35 H.U. - Delayed phase attenuation: 9 H.U. - Absolute wash-out: 81% consistent with an adenoma. - Relative wash-out: 74% consistent with an adenoma. Adrenal Lesion #2 characteristics: mass in the anterior limb - Dimensions: 4.3 x 2.9 x 4.8 cm - Pre-contrast attenuation: 26 H.U. - Portal phase attenuation: 56 H.U. - Delayed phase attenuation: 51 H.U. - Absolute wash-out: 17% Absolute washout less than 60% is indeterminate. - Relative wash-out: 9% Absolute washout less than 60% is indeterminate. Left adrenal gland: Hypoattenuating nodular thickening of the posterior medial and posterior lateral limbs Adrenal Lesion #3 characteristics: Posterior medial limb - Dimensions: 3.3 x 1.9 cm cm - Pre-contrast attenuation: -6 H.U. - Portal phase attenuation: 23 H.U. - Delayed phase attenuation: -4 H.U. - Absolute wash-out: 93% consistent with an adenoma. - Relative wash-out: 100% consistent with an adenoma. Adrenal Lesion #4characteristics: Posterior lateral limb - Dimensions: 3.3 x 1.9 cm cm - Pre-contrast attenuation: 0 H.U. - Portal phase attenuation: 17 H.U. - Delayed phase attenuation: 4 H.U. - Absolute wash-out: 77% consistent with an adenoma. - Relative wash-out: 77% consistent with an adenoma. Abdomen Liver: No mass. A 1.8 cm cyst is present in the left hepatic dome, 1.2 cm cyst in the segment 4A and NPI there is a cyst in the inferior right hepatic lobe. Biliary: No bile duct dilation. Gallbladder is unremarkable. Spleen: No mass. No splenomegaly. Pancreas: No mass or duct dilation. Kidneys: Punctate calcifications in the renal pelves bilaterally are likely vascular in nature. A 1.4 cm cortical cyst is present in the anterior aspect of the inferior renal pole, and 1.9 cm parapelvic cyst in the interpolar region. GI tract: A 3.0 cm lipoma is present in the descending duodenum. No dilation or wall thickening. Appendix is normal. Lymph nodes: No abdominal lymphadenopathy. Mesentery/Peritoneum: No ascites or mass. Vasculature: - Abdominal aorta and iliac arteries: Atherosclerotic calcifications without aneurysm. - Celiac and SMA: Patent without stenosis. - Portal venous system (SMV, splenic vein, portal vein and branches): Patent. - Hepatic veins: Patent. - Other: None Bones/Soft Tissues: Lower lumbar spondylosis. Lower Thorax: No consolidation or pleural effusion Localizer images: No additional findings DIVISION OF RADIOLOGY Provider, [facility] - 10/14/2024 * * *Final Report* * * DATE OF EXAM: Oct 14 2024 3:45PM [facility] 0536 - CT ADRENAL WO/W IVCON / PROCEDURE REASON: Disorder of adrenal gland (HCC) * * * * Physician Interpretation * * * * CT ABDOMEN / ADRENAL GLANDS WITHOUT AND WITH IV CONTRAST CLINICAL HISTORY: Abnormal adrenal glands TECHNIQUE: Thin section spiral imaging through the adrenal glands was performed without and with contrast using washout technique. Oral contrast is not administered per protocol. Contrast: IV: 100 ml of Omnipaque 350 Oral Contrast: None CT Radiation dose: Integrated Dose-length product (DLP) for this visit = 1459 mGy*cm. CT Dose Reduction Employed: Automated exposure control(AEC) and iterative recon COMPARISON: Report available through [employer] for outside CT abdomen 04/16/2024 , no images available. RESULT: Adrenal glands: Right adrenal gland: Hypoattenuating nodular thickening of the crural limb, adjacent isoattenuating mass in the anterior medial limb. Adrenal Lesion #1 characteristics: crural limb - Dimensions: 3.0 x 1.7 cm - Pre-contrast attenuation: 3 H.U. - Portal phase attenuation: 35 H.U. - Delayed phase attenuation: 9 H.U. - Absolute wash-out: 81% consistent with an adenoma. - Relative wash-out: 74% consistent with an adenoma. Adrenal Lesion #2 characteristics: mass in the anterior limb - Dimensions: 4.3 x 2.9 x 4.8 cm - Pre-contrast attenuation: 26 H.U. - Portal phase attenuation: 56 H.U. - Delayed phase attenuation: 51 H.U. - Absolute wash-out: 17% Absolute washout less than 60% is indeterminate. - Relative wash-out: 9% Absolute washout less than 60% is indeterminate. Left adrenal gland: Hypoattenuating nodular thickening of the posterior medial and posterior lateral limbs Adrenal Lesion #3 characteristics: Posterior medial limb - Dimensions: 3.3 x 1.9 cm cm - Pre-contrast attenuation: -6 H.U. - Portal phase attenuation: 23 H.U. - Delayed phase attenuation: -4 H.U. - Absolute wash-out: 93% consistent with an adenoma. - Relative wash-out: 100% consistent with an adenoma. Adrenal Lesion #4characteristics: Posterior lateral limb - Dimensions: 3.3 x 1.9 cm cm - Pre-contrast attenuation: 0 H.U. - Portal phase attenuation: 17 H.U. - Delayed phase attenuation: 4 H.U. - Absolute wash-out: 77% consistent with an adenoma. - Relative wash-out: 77% consistent with an adenoma. Abdomen Liver: No mass. A 1.8 cm cyst is present in the left hepatic dome, 1.2 cm cyst in the segment 4A and NPI there is a cyst in the inferior right hepatic lobe. Biliary: No bile duct dilation. Gallbladder is unremarkable. Spleen: No mass. No splenomegaly. Pancreas: No mass or duct dilation. Kidneys: Punctate calcifications in the renal pelves bilaterally are likely vascular in nature. A 1.4 cm cortical cyst is present in the anterior aspect of the inferior renal pole, and 1.9 cm parapelvic cyst in the interpolar region. GI tract: A 3.0 cm lipoma is present in the descending duodenum. No dilation or wall thickening. Appendix is normal. Lymph nodes: No abdominal lymphadenopathy. Mesentery/Peritoneum: No ascites or mass. Vasculature: - Abdominal aorta and iliac arteries: Atherosclerotic calcifications without aneurysm. - Celiac and SMA: Patent without stenosis. - Portal venous system (SMV, splenic vein, portal vein and branches): Patent. - Hepatic veins: Patent. - Other: None Bones/Soft Tissues: Lower lumbar spondylosis. Lower Thorax: No consolidation or pleural effusion Localizer images: No additional findings IMPRESSION IMPRESSION: 1. Indeterminate 4.8 cm mass in the right adrenal, worrisome for adrenal malignancy. If no cancer history, consider resection because of the possibility of an adrenocortical carcinoma. If there is a cancer history consider PET or biopsy the 1.1 cm left retroperitoneal lymph node demonstrate maintained central fatty hilum. 2. 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 ACTIONABLE RESULT: FOLLOW-UP Acuity: Actionable Findings: Adrenal Routing Code: AD_1 Recommendation: SUBSPECIALTY CONSULTATION SUGGESTED Time Frame: COMMUNICATION: Results will be communicated with the ordering provider via [employer] staff message or phone message by [employer] within 2 business days of report finalization. --END OF FINDING-- Import Clerk: ALIZA Transcribe Date/Time: Oct 14 2024 3:23P Dictated by : ANISH BECK MD This examination was interpreted and the report reviewed and electronically signed by: ANISH BECK MD on Oct 14 2024 4:24PM EST [facility] Radiology Study observation (narrative) [facility] Comprehensive metabolic 2000 panelOrdered By: Keri Bañuelos on 10-14-2024 Albumin [Mass/Vol] 4.2 g/dL 3.9 - 4.9 g/dL [facility] ALP [Catalytic activity/Vol] 110 U/L 34 - 123 U/L [facility] ALT [Catalytic activity/Vol] 9 U/L 7 - 38 U/L [facility] Anion gap [Moles/Vol] 12 mmol/L 8 - 15 mmol/L [facility] AST [Catalytic activity/Vol] 13 U/L 13 - 35 U/L [facility] Bilirubin [Mass/Vol] 0.4 mg/dL 0.2 - 1 .3 mg/dL [facility] Calcium [Mass/Vol] 10 mg/dL 8.5 - 10. 2 mg/dL [facility] Chloride [Moles/Vol] 94 mmol/L Low 98 - 10 7 mmol/L [facility] CO2 [Moles/Vol] 28 mmol/L 22 - 30 mmol/L [facility] Creatinine [Mass/Vol] 0.73 mg/dL 0.58 - 0.96 mg/dL [facility] GFR/1.73 sq M.predicted among non-blacks MDRD (S/P/Bld) [Vol rate/Area] 95 mL/min/{1.73_m2} - PINF [facility] Comment on above: Estimated Glomerular Filtration Rate (eGFR) is calculated using the 2020 CKD-EPI creatinine equation. This equation utilizes serum creatinine, sex, and age as parameters. The creatinine assay has traceable calibration to isotope dilution-mass spectrometry. Refer to KDIGO guidelines for clinical interpretation. In patients with unstable renal function, e.g. those with acute kidney injury, the eGFR may not accurately reflect actual GFR. Glucose [Mass/Vol] 81 mg/dL 74 - 99 mg/dL [facility] Comment on above: The [place] Diabete s Association (ADA) provides guidance for cutoff values for fasting glucose and random glucose. The ADA defines fasting as no caloric intake for at least 8 hours. Fasting plasma glucose results between 100 to 125 mg/dL indicate increased risk for diabetes (prediabetes). Fasting plasma glucose results greater than or equal to 126 mg/dL meet the criteria for diagnosis of diabetes. In the absence of unequivocal hyperglycemia, results should be confirmed by repeat testing. In a patient with classic symptoms of hyperglycemia or hyperglycemic crisis, random plasma glucose results greater than or equal to 200 mg/dL meet the criteria for diagnosis of diabetes. Reference: Standards of Medical Care in Diabetes 2016, [place] Diabetes Association. Diabetes Care. 2016.39(Suppl 1). Interpretation and review of laboratory results Abnormal [facility] Potassium [Moles/Vol] 4.1 mmol/L 3.7 - 5.1 mmol/L [facility] Protein [Mass/Vol] 7.1 g/dL 6.3 - 8.0 g/dL [facility] Sodium [Moles/Vol] 134 mmol/L Low 136 - 144 mmol/L [facility] Urea nitrogen [Mass/Vol] 15 mg/dL 7 - 21 mg/dL [facility] Comprehensive metabolic 2000 panelon 10-14-2024 Albumin [Mass/Vol] 4.2 g/dL Normal 3.9-4.9 [facility] Comment on above: Order Comment: Speci men Type: BLOOD SPECIMENOrdering Facility: [facility] Address: [address] [place], [place] [id number] Performed By: #### 2 4323-8 ####[facility] [id number] [place] [address] [place] ALP [Catalytic activity/Vol] 110 U/L Normal 34-123 [facility] Comment on above: Order Comment: Speci men Type: BLOOD SPECIMENOrdering Facility: [facility] Address: [address] [place] [address] Performed By: #### 2 4323-8 ####[facility] [id number] [place] [address] [place] ALT [Catalytic activity/Vol] 9 U/L Normal 7-38 [facility] Comment on above: Order Comment: Speci men Type: BLOOD SPECIMENOrdering Facility: [facility] Address: [address] [place] [address] Performed By: #### 2 4323-8 ####[facility] ROSA MILLTOWNCLIA [id number] [place] [address] [place] Anion gap [Moles/Vol] 12 mmol/L Normal 8-15 [facility] Comment on above: Order Comment: Speci men Type: BLOOD SPECIMENOrdering Facility: [facility] Address: [address] [place] [address] Performed By: #### 2 4323-8 ####[facility] MILLTOWNCLIA [id number] [place] [address] [place] AST [Catalytic activity/Vol] 13 U/L Normal 13-35 [facility] Comment on above: Order Comment: Speci men Type: BLOOD SPECIMENOrdering Facility: [facility] Address: [address] [place] [address] Performed By: #### 2 4323-8 ####[facility] MILLTOWNCLIA [id number] [place] [address] [place] Bilirubin [Mass/Vol] 0.4 mg/dL Normal 0.2-1.3 [facility] Comment on above: Order Comment: Speci men Type: BLOOD SPECIMENOrdering Facility: [facility] Address: [address] [place] [address] Performed By: #### 2 4323-8 ####[facility] ROSA MILLTOWNCLIA [id number] [place] [address] [place] Calcium [Mass/Vol] 10.0 mg/dL Normal 8.5-10.2 [facility] Comment on above: Order Comment: Speci men Type: BLOOD SPECIMENOrdering Facility: [facility] Address: [address] [place] [address] Performed By: #### 2 4323-8 ####[facility] MILLWNCLIA [id number] [place] [address] [place] Chloride [Moles/Vol] 94 mmol/L Low 98-107 [facility] Comment on above: Order Comment: Speci men Type: BLOOD SPECIMENOrdering Facility: [facility] Address: [address] [place] [address] Performed By: #### 2 4323-8 ####[facility] [id number] [place] [address] [place] CO2 [Moles/Vol] 28 mmol/L Normal 22-30 [facility] Comment on above: Order Comment: Speci men Type: BLOOD SPECIMENOrdering Facility: [facility] Address: [address] [place] [address] Performed By: #### 2 4323-8 ####[facility] [id number] [place] [address] [place] Creatinine [Mass/Vol] 0.73 mg/dL Normal 0.58-0.96 [facility] Comment on above: Order Comment: Speci men Type: BLOOD SPECIMENOrdering Facility: [facility] Address: [address] [place] [address] Performed By: #### 2 4323-8 ####[facility] [id number] [address] Creatinine and Glomerular filtration rate.predicted panel (S/P/Bld) 95 mL/min/1.73m??? Normal >=60 [facility] Comment on above: Order Comment: Speci men Type: BLOOD SPECIMENOrdering Facility: [facility] Address: [address] [place] [address] Result Comment: Yesenia mated Glomerular Filtration Rate (eGFR) is calculated using the 2020 CKD-EPI creatinine equation. This equation utilizes serum creatinine, sex, and age as parameters. The creatinine assay has traceable calibration to isotope dilution-mass spectrometry. Refer to KDIGO guidelines for clinical interpretation. In patients with unstable renal function, e.g. those with acute kidney injury, the eGFR may not accurately reflect actual GFR. Performed By: #### 2 4323-8 ####[facility] [id number] [place] [address] [place] Glucose [Mass/Vol] 81 mg/dL Normal 74-99 [facility] Comment on above: Order Comment: Speci men Type: BLOOD SPECIMENOrdering Facility: [facility] Address: [address] [place] [address] Result Comment: The [place] Diabetes Association (ADA) provides guidance for cutoff values for fasting glucose and random glucose. The ADA defines fasting as no caloric intake for at least 8 hours. Fasting plasma glucose results between 100 to 125 mg/dL indicate increased risk for diabetes (prediabetes). Fasting plasma glucose results greater than or equal to 126 mg/dL meet the criteria for diagnosis of diabetes. In the absence of unequivocal hyperglycemia, results should be confirmed by repeat testing. In a patient with classic symptoms of hyperglycemia or hyperglycemic crisis, random plasma glucose results greater than or equal to 200 mg/dL meet the criteria for diagnosis of diabetes. Reference: Standards of Medical Care in Diabetes 2016, [place] Diabetes Association. Diabetes Care. 2016.39(Suppl 1). Performed By: #### 2 4323-8 ####[facility] NAPLESWNCLIA [id number] [place] [address] [place] Potassium [Moles/Vol] 4.1 mmol/L Normal 3.7-5.1 [facility] Comment on above: Order Comment: Speci men Type: BLOOD SPECIMENOrdering Facility: [facility] Address: [address] [place] [address] Performed By: #### 2 4323-8 ####[facility] NAPLESWNCLIA [id number] [place] [address] [place] Protein [Mass/Vol] 7.1 g/dL Normal 6.3-8.0 [facility] Comment on above: Order Comment: Speci men Type: BLOOD SPECIMENOrdering Facility: [facility] Address: [address] [place] [address] Performed By: #### 2 4323-8 ####[facility] [id number] [place] [address] [place] Sodium [Moles/Vol] 134 mmol/L Low 136-144 [facility] Comment on above: Order Comment: Speci men Type: BLOOD SPECIMENOrdering Facility: [facility] Address: [address] [place] [address] Performed By: #### 2 4323-8 ####[facility] [id number] [place] [address] [place] Urea nitrogen [Mass/Vol] 15 mg/dL Normal 7-21 [facility] Comment on above: Order Comment: Speci men Type: BLOOD SPECIMENOrdering Facility: [facility] Address: [address] [place] [address] Performed By: #### 2 4323-8 ####[facility] [id number] [place] [address] [place] HbA1c (Bld)on 10-14-2024 Average glucose Estimated from glycated hemoglobin (Bld) [Mass/Vol] 126 mg/dL Normal [facility] Comment on above: Order Comment: Speci men Type: BLOOD SPECIMENOrdering Facility: [facility] Address: [address] [place] [address] Result Comment: eAG: (Estimated average glucose) is a calculated value from HgbA1c and is sales representative wire rope of the average blood glucose level in the last 2-3 month period. Performed By: #### 5 5454-3 ####[facility] LABCLIA [id number] [place] [address] [place] HbA1c (Bld) [Mass fraction] 6.0 % High 4.3-5.6 [facility] Comment on above: Order Comment: Speci men Type: BLOOD SPECIMENOrdering Facility: [facility] Address: [address] [place] [address] Result Comment: [place] Diabetes Association guidelines indicate that patients with HgbA1c in the range 5.7-6.4% are at increased risk for development of diabetes, and intervention by lifestyle modification may be beneficial. HgbA1c greater or equal to 6.5% is considered diagnostic of diabetes. Performed By: #### 5 5454-3 ####[facility] LABCLIA [id number] [place] [address] [place] LIPID PANEL, NONFASTINGon Cholesterol [Mass/Vol] 166 mg/dL Normal <200 [facility] Comment on above: Order Comment: Maurilio men Type: BLOOD SPECIMENOrdering Facility: [facility] Address: [address] [place] [address] Result Comment: <200 mg/dL, Desirable 200-239 mg/dL, Borderline high >239 mg/dL, High Performed By: #### L IPNF ####[facility] LABCLIA [id number] [place] [address] [place] HDL CHOLESTEROL, NF 45 mg/dL Normal >39 [facility] Comment on above: Order Comment: Jacquii men Type: BLOOD SPECIMENOrdering Facility: [facility] Address: [address] [place] [address] Result Comment: 40-5 9 mg/dL, Acceptable >59 mg/dL, High: Negative risk factor for coronary heart disease <40 mg/dL, Low: Positive risk factor for coronary heart disease Performed By: #### L IPNF ####[facility] LABIA [id number] [place] [address] [place] LDL CHOLESTEROL, NF 101 mg/dL High <100 [facility] Comment on above: Order Comment: Speci men Type: BLOOD SPECIMENOrdering Facility: [facility] Address: [address] [place] [address] Result Comment: <100 mg/dL, Optimal 100-129 mg/dL, Near optimal/above optimal 130-159 mg/dL, Borderline high 160-189 mg/dL, High >189 mg/dL, Very high Secondary prevention optimal LDL Cholesterol levels are recommended to be < 70 mg/dL Performed By: #### L IPNF ####[facility] LABCLIA [id number] [address] OF [facility] LDL/HDL RATIO, NF 2.24 mg/dL Normal <2.54 [facility] Comment on above: Order Comment: Speci men Type: BLOOD SPECIMENOrdering Facility: [facility] Address: [address] [place] [address] Result Comment: Refnikolas ramírez: 1. National Cholesterol Education Program ATP III Guideline At-A-Glance Quick Desk Reference: National Heart, Lung, and Blood [place]. National Institutes of Health. 2001: NIH Publication No. 01-3305. 2. An International Atherosclerosis Society position paper: global recommendations for the management of dyslipidemia: executive summary, Atherosclerosis. 2014: 232(2):410-413. Performed By: #### L IPNF ####[facility] LABIA [id number] [address] NON HDL CHOL, NF 121 mg/dL Normal <130 [facility] Comment on above: Order Comment: Jacquii [facility] Type: BLOOD SPECIMENOrdering Facility: [facility] Address: [address] [place] [address] Result Comment: <130 mg/dL, Optimal 130-159 mg/dL, Near optimal/above optimal 160-189 mg/dL, Borderline high 190-219 mg/dL, High >219 mg/dL, Very high Secondary prevention optimal non HDL Cholesterol levels are recommended to be <100 mg/dL Performed By: #### L IPNF ####[facility] LABCLIA [id number] [address] OF [facility] T CHOL/HDL RATIO NF 3.69 mg/dL Normal <5.10 [facility] Comment on above: Order Comment: Speci men Type: BLOOD SPECIMENOrdering Facility: [facility] Address: [address] [place] [address] Performed By: #### L IPNF ####[facility] LABCLIA [id number] [place] [address] [place] TRIGLYCERIDES, NF 102 mg/dL Normal <150 [facility] Comment on above: Order Comment: Speci men Type: BLOOD SPECIMENOrdering Facility: [facility] Address: [address] [place] [address] Result Comment: <150 mg/dL, Normal 150-199 mg/dL, Borderline high 200-499 mg/dL, High >499 mg/dL, Very high Performed By: #### L IPNF ####[facility] LABIA [id number] [address] STATES OF [facility] VLDL CHOLESTEROL, NF 20 mg/dL Normal <30 [facility] Comment on above: Order Comment: Speci men Type: BLOOD SPECIMENOrdering Facility: [facility] Address: [address] [place] [address] Performed By: #### L IPNF ####[facility] LABIA [id number] [place] [address] [place] DBT Breast - bilateral scree allan 10-11-2024 IMPRESSION: Finding 1: The asymmetry in the lateral right breast, posterior depth requires additional evaluation. Diagnostic mammogram is recommended. Finding 2: The focal asymmetry in the left breast in the lateral region and in the central region, middle depth requires additional evaluation. Diagnostic mammogram is recommended. Finding 3: Area in the left breast requires additional evaluation. Diagnostic ultrasound is recommended. BI-RADS Category 0: Incomplete: Needs Additional Imaging Evaluation RISK: Based on the Tyrer-Cuzick (TC) risk assessment model, this patient has a 3.6% lifetime risk of developing breast cancer, meaning they are at average risk for developing breast cancer. However, this is only an estimate based on available history provided on the patient's questionnaire. We encourage all patients to talk with their providers about these results, further recommendations for managing breast health, and appropriate supplemental screening options if the patient has dense breast tissue. Interpreting Radiologist: Casie Weiss M.D. Electronically signed on: 10/11/2024 Import Clerk: PETER [employer] Date/Time: Oct 11 2024 9:43A Dictated by: CASIE WEISS MD This examination was interpreted and the report reviewed and electronically signed by: CASIE WEISS MD on Oct 11 2024 11:52AM [facility] * * *Final Report* * * DATE OF EXAM: Oct 11 2024 9:57AM [facility] [id number] - [place] SCREENING W GERALD / PROCEDURE REASON: Encounter for screening mammogram for breast cancer * * * * Physician Interpretation * * * * RESULT: [facility] [address] [place] [address] #[id number] - [place] SCREENING W GERALD HISTORY: 59 year-old patient seen for screening and non-bloody discharge in the left breast. Patient states no personal history of breast cancer. COMPARISON STUDIES: This is a baseline study. MAMMOGRAM TECHNIQUE: The study was acquired using full field digital technology and interpreted from soft copy. Digital Breast Tomosynthesis (DBT) images were obtained and used to assist in the interpretation of this examination. MAMMOGRAM FINDINGS: There are scattered areas of fibroglandular density. Finding 1: There is an asymmetry in the lateral right breast, posterior depth. Finding 2: There is a focal asymmetry in the left breast in the lateral region and in the central region, middle depth. Finding 3: There are no suspicious mammographic findings to correspond with the non-bloody nipple discharge in the left breast. DIVISION OF RADIOLOGY Provider, [facility] - 10/11/2024 * * *Final Report* * * DATE OF EXAM: Oct 11 2024 9:57AM [facility] [id number] - [place] SCREENING W GERALD / PROCEDURE REASON: Encounter for screening mammogram for breast cancer * * * * Physician Interpretation * * * * RESULT: [facility] [address] [place] [address] #[id number] - [place] SCREENING W GERALD HISTORY: 59 year-old patient seen for screening and non-bloody discharge in the left breast. Patient states no personal history of breast cancer. COMPARISON STUDIES: This is a baseline study. MAMMOGRAM TECHNIQUE: The study was acquired using full field digital technology and interpreted from soft copy. Digital Breast Tomosynthesis (DBT) images were obtained and used to assist in the interpretation of this examination. MAMMOGRAM FINDINGS: There are scattered areas of fibroglandular density. Finding 1: There is an asymmetry in the lateral right breast, posterior depth. Finding 2: There is a focal asymmetry in the left breast in the lateral region and in the central region, middle depth. Finding 3: There are no suspicious mammographic findings to correspond with the non-bloody nipple discharge in the left breast. IMPRESSION IMPRESSION: Finding 1: The asymmetry in the lateral right breast, posterior depth requires additional evaluation. Diagnostic mammogram is recommended. Finding 2: The focal asymmetry in the left breast in the lateral region and in the central region, middle depth requires additional evaluation. Diagnostic mammogram is recommended. Finding 3: Area in the left breast requires additional evaluation. Diagnostic ultrasound is recommended. BI-RADS Category 0: Incomplete: Needs Additional Imaging Evaluation RISK: Based on the Tyrer-Cuzick (TC) risk assessment model, this patient has a 3.6% lifetime risk of developing breast cancer, meaning they are at average risk for developing breast cancer. However, this is only an estimate based on available history provided on the patient's questionnaire. We encourage all patients to talk with their providers about these results, further recommendations for managing breast health, and appropriate supplemental screening options if the patient has dense breast tissue. Interpreting Radiologist: Casie Weiss M.D. Electronically signed on: 10/11/2024 Import Clerk: PETER Transcribe Date/Time: Oct 11 2024 9:43A Dictated by: CASIE WEISS MD This examination was interpreted and the report reviewed and electronically signed by: CASIE WEISS MD on Oct 11 2024 11:52AM EST [facility] Radiology Study observation (narrative) [facility] DBT Breast - bilateral scree ningOrdered By: [facility] Provider on 10-11-2024 [facility] SCREENING W TOMOon 10-11 [facility] SCREENING W GERALD * * *Final Report* * * DATE OF EXAM: Oct 11 2024 9:57AM [facility] [id number] - [place] SCREENING W GERALD / PROCEDURE REASON: Encounter for screening mammogram for breast cancer * * * * Physician Interpretation * * * * RESULT: [facility] [address] [place] [address] #[id number] - [place] SCREENING W GERALD HISTORY: 59 year-old patient seen for screening and non-bloody discharge in the left breast. Patient states no personal history of breast cancer. COMPARISON STUDIES: This is a baseline study. MAMMOGRAM TECHNIQUE: The study was acquired using full field digital technology and interpreted from soft copy. Digital Breast Tomosynthesis (DBT) images were obtained and used to assist in the interpretation of this examination. MAMMOGRAM FINDINGS: There are scattered areas of fibroglandular density. Finding 1: There is an asymmetry in the lateral right breast, posterior depth. Finding 2: There is a focal asymmetry in the left breast in the lateral region and in the central region, middle depth. Finding 3: There are no suspicious mammographic findings to correspond with the non-bloody nipple discharge in the left breast. IMPRESSION: Finding 1: The asymmetry in the lateral right breast, posterior depth requires additional evaluation. Diagnostic mammogram is recommended. Finding 2: The focal asymmetry in the left breast in the lateral region and in the central region, middle depth requires additional evaluation. Diagnostic mammogram is recommended. Finding 3: Area in the left breast requires additional evaluation. Diagnostic ultrasound is recommended. BI-RADS Category 0: Incomplete: Needs Additional Imaging Evaluation RISK: Based on the Tyrer-Cuzick (TC) risk assessment model, this patient has a 3.6% lifetime risk of developing breast cancer, meaning they are at average risk for developing breast cancer. However, this is only an estimate based on available history provided on the patient's questionnaire. We encourage all patients to talk with their providers about these results, further recommendations for managing breast health, and appropriate supplemental screening options if the patient has dense breast tissue. Interpreting Radiologist: Casie Weiss M.D. Electronically signed on: 10/11/2024 Import Clerk: PETER Transcribe Date/Time: Oct 11 2024 9:43A Dictated by: CASIE WEISS MD This examination was interpreted and the report reviewed and electronically signed by: CASIE WEISS MD on Oct 11 2024 11:52AM EST [id number] Normal [facility] CNOVon 06-28-2024 CNOV Office Visit (ENWSTR ) ----- VIOLET CHIN ([id number]) 1965 F Date Time Provider Department 06/28/24 8:00 AM NINA LERNER ENWSTR During your visit today, we recorded the following information about you: Pulse Respiration Blood pressure Weight 63/minute 20/minute 158/92 82.6 kg Height 1.575 m Nina Lerner MD 06/28/2024 2:54 PM Signed [facility] Initial Clinic Visit Note Patient referred by: Aissatou Mac APRN. [employer] Chief compliant: B/L Adrenal nodules History of Present Illness: Ms. Violet Chin is a 58 year old female coming today for bilateral adrenal nodules. She also has a hx of duodenal ulcers and is on protonix, carafate for the same History in brief, she underwent CT abdomen for abdominal pain when adrenal nodules were incidentally found in bilateral adrenal glands. She denied any recent significant unintentional changes in weight, other than weight loss of about 25 lbs with intermittent fasting/low carb diet, but has gained about 5 lbs after Denied any palpitations, tremors, sweaty episodes, headaches No concerns for easy bruising, stretch albert, proximal muscle weakness or excess facial.body hair Previous use of Steroids, oral, inhalers, injections: No chronic use Past Medical History: PAST MEDICAL HISTORY Diagnosis Date Anxiety and depression History of COVID-19 08/2020 HTN (hypertension) Lumbar herniated disc s/p laminectomy-pain free Marijuana use Mixed hyperlipidemia Obesity (BMI 30-39.9) Tobacco use Surgical History: PAST SURGICAL HISTORY Procedure Laterality Date SNGL 1986 SNGL 1987 SNGL 2000 EYE SURGERY HX 1972 correct lazy eye LAMINECTOMY W/O FFD 08/08 VERT SEG LUMBAR 2007 TUBAL LIGATION 2001 Family Medical History: FAMILY HISTORY Problem Relation Age of Onset COPD Mother No Known Problems Father No Known Problems Sister No Known Problems Sister No Known Problems Brother No Known Problems Brother Cancer Maternal Grandmother No Known Problems Daughter No Known Problems Daughter No Known Problems Son Adrenal Insufficiency No Family History Social History: Social History Tobacco Use Smoking status: Every Day Current packs/day: 1.00 Average packs/day: 1 pack/day for 30.0 years (30.0 ttl pk-yrs) Types: Cigarettes Passive exposure: Current Smokeless tobacco: Never Substance Use Topics Alcohol use: No Drug use: Not Currently Types: Marijuana Comment: occasionally- 2 times a year Allergies: ALLERGIES Allergen Reactions Prozac [Fluoxetine] GI Upset Current medications: Current Outpatient Medications Medication Sig pantoprazole DR (PROTONIX) 40 mg tablet Take 1 tablet by mouth every 12 hours. sucralfate (CARAFATE) 1 gram tablet Take 1 g by mouth four times daily. BIOTIN ORAL Take 1 tablet by mouth once daily. buPROPion SR (WELLBUTRIN SR) 150 mg 12 hr tablet Take 1 tablet by mouth two times a day. sertraline (ZOLOFT) 100 mg tablet Take 1 tablet by mouth once daily. atorvastatin (LIPITOR) 80 mg tablet Take 1 tablet by mouth daily at bedtime. For cholesterol. lisinopril-hydroCHLOROthi azide (ZESTORETIC) 10-12.5 mg per tablet Take 1 tablet by mouth once daily. No current facility-administered medications for this visit. Review of Systems: 10 point ROS was reviewed and negative unless indicated in the HPI Physical exam: BP 158/92 (BP Site: Right Arm, BP Position: Sitting, BP Cuff Size: Regular Adult) Pulse 63 Resp 20 Ht 157.5 cm (5' 2) Wt 82.6 kg (182 lb 3.2 oz) SpO2 98% BMI 33.32 kg/m? General Appearance: Well appearing, alert, in no acute distress, well-hydrated, well nourished, obese body habitus Skin: Skin color, texture, turgor normal, no suspicious rashes or lesions. Eyes: Anicteric sclera. Extraocular movements are intact. Neck: Supple, no adenopathy; thyroid symmetric, normal size, no bruits. Lungs: unlabored breathing on room air Heart: Regular leatha and rhythm Abdomen: no typical concerning features noted, obese abdomen Extremities: No deformities, edema, skin discoloration, clubbing or cyanosis. Musculoskeletal: No joint swelling, deformity, or tenderness, weakness Peripheral Pulses: Normal. Neurologic: Gait normal. Reflexes normal and symmetric. Previous laboratory results: No pertinent labs available Imaging: Previous Adrenal CT: ASSESSMENT/PLAN: Patient presents for evaluation of an adrenal nodule. The main goal of this investigation is to evaluate if this nodule is malignant/benign and if it is functioning/non functioning. From the CT abdomen, the adrenal nodules are measured as 4 cm on the right and 1 cm on the left however to better evaluate these nodules we will need specific imaging. I was not able to review the images as this was done at [facility]. We sha (more content not included)... Normal [facility] 05-28-[address] [facility] VIOLET CH[facility] ([id number]) 1965 F Date Time Provider Department 05/28/24 ERICK LEMUS [facility] During your visit today, we recorded the following information about you: Cara Sanders LPN 05/28/2024 8:11 AM Signed VM left for patient to call to reschedule appointment. Advised her to send [facility] message if difficulty finding sooner availability and we can assist with locating sooner appointment if needed. Cara Sanders LPN Allergies As of Date: 05/28/2024 Noted Allergy Reaction PROZAC (FLUOXETINE) 02/04/2021 8 - GI Upset Date Reviewed: 05/15/2024 Reviewed by: Sintia Jacobson LPN - Fully Assessed Reason for Visit: Appointment [186] Cmt: Provider out 05/28/24 due to illness attempted to contact patient to reschedule appt Prescriptions as of 2024 - lisinopril-hydroCHLOROthi azide (ZESTORETIC) 10-12.5 mg per tablet Take 1 tablet by mouth once daily. - sertraline (ZOLOFT) 100 mg tablet Take 1 tablet by mouth once daily. - pantoprazole DR (PROTONIX) 40 mg tablet Take 1 tablet by mouth every 12 hours. - sucralfate (CARAFATE) 1 gram tablet Take 1 g by mouth four times daily. - BIOTIN ORAL Take 1 tablet by mouth once daily. - dexAMETHasone (DECADRON) 1 mg tablet Take the tablet at 11 pm and go for labs the next morning on fasting at 8 am - buPROPion SR (WELLBUTRIN SR) 150 mg 12 hr tablet Take 1 tablet by mouth two times a day. - atorvastatin (LIPITOR) 80 mg tablet Take 1 tablet by mouth daily at bedtime. For cholesterol. Problem List As Of Date 05/28/2024 Noted Resolved Essential hypertension [I10] 09/28/2018 Anxiety with depression [F41.8] 09/28/2018 Smoker [F17.200] 09/28/2018 Obesity (BMI 30-39.9) [E66.9] History of COVID-19 [Z86.16] 08/2020 Marijuana use [F12.90] Tobacco use [Z72.0] Mixed hyperlipidemia [E78.2] Encounter Status:Closed by CARA SANDERS on 08/27/24 [facility] CNOVbrii 05-15-2024 CNOV Office Visit (FAMPWS ) ----- VIOLET CHIN ([id number]) 1965 F Date Time Provider Department 05/15/24 2:40 PM AISSATOU MAC During your visit today, we recorded the following information about you: Pulse Respiration Blood pressure Weight 54/minute 18/minute 138/80 81.2 kg Aissatou Mac APRN.[employer]NER 06/28/2024 8:33 AM Addendum 05/15/2024 Patient presents with: Hospital F/U: [facility] 04/18 for abdominal pain SUBJECTIVE: This is a 58 year old that is here today for Above Complaints. 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 Has not been taking her pantoprazole but not taking the Carafate as she was unclear on the medication. Denies fevers, chills, nausea, vomiting, diarrhea or constipation Incidentally found adrenal masses bilaterally with the right mass being 4 cm and left 2 cm. Recommended follow-up with endocrinology ER records reviewed PAST MEDICAL HISTORY Diagnosis Date Anxiety and depression History of COVID-19 08/2020 HTN (hypertension) Lumbar herniated disc s/p laminectomy-pain free Marijuana use Mixed hyperlipidemia Obesity (BMI 30-39.9) Tobacco use ALLERGIES Prozac [Fluoxetine] MEDICATIONS Current Outpatient Medications Medication Sig buPROPion SR (WELLBUTRIN SR) 150 mg 12 hr tablet Take 1 tablet by mouth two times a day. sertraline (ZOLOFT) 100 mg tablet Take 1 tablet by mouth once daily. atorvastatin (LIPITOR) 80 mg tablet Take 1 tablet by mouth daily at bedtime. For cholesterol. lisinopril-hydroCHLOROthi azide (ZESTORETIC) 10-12.5 mg per tablet Take 1 tablet by mouth once daily. biotin 5,000 mcg subl Dissolve under the tongue. No current facility-administered medications for this visit. Medications and allergies reviewed by this provider. SOCIAL HISTORY Social History Tobacco Use Smoking status: Every Day Current packs/day: 1.00 Average packs/day: 1 pack/day for 30.0 years (30.0 ttl pk-yrs) Types: Cigarettes Smokeless tobacco: Never Substance Use Topics Alcohol use: No Drug use: Not Currently Types: Marijuana Comment: occasionally- 2 times a year REVIEW OF SYSTEMS All other reviewed and negative other than HPI. OBJECTIVE: BP 138/80 Pulse (!) 54 Resp 18 Wt 81.2 kg (179 lb 0.2 oz) SpO2 98% BMI 31.96 kg/m? . Vital signs reviewed by this provider. APPEARANCE Well appearing, alert, in no acute distress, well-hydrated, well nourished. EYES conjunctiva and sclera normal. HEART RRR with normal S1 and S2, no murmurs, no gallops, no JVD appreciated LUNG clear to auscultation. No wheezes, rhonchi or rales ABDOMEN bowel sounds normoactive, no bruits, soft, non-tender, non-distended, No rebound tenderness or guarding EXTREMITIES Extremities normal, No deformities, No skin discoloration, and No edema SKIN Skin color, texture, turgor normal, no suspicious rashes or lesions to exposed skin Hepatitis C Screening Never done HIV Screening Never done Hepatitis B Vaccine(1 of 3 - 19+ 3-dose series) Never done Cervical Cancer Screening Never done Mammogram Screening Never done Colorectal Cancer Screening Never done Lung Cancer Screening Never done Shingrix Vaccine(1 of 2) Never done Pneumococcal Vaccine(2 of 2 - PCV) due on 03/15/2020 Diabetes Screening due on 02/05/2024 Influenza Vaccine(1) due on 04/07/2024 Covid-19 Vaccine( - 2023- season) due on 04/07/2024 BP Controlled (<130/80) due on 01/16/2025 Annual PCP Team Chronic Disease Visit due on 05/15/2025 Lipid Screening due on 02/04/2026 DTaP,Tdap,Td Vaccine(3 - Td or Tdap) due on 01/05/2034 ASSESSMENT/PLAN: 1. Hospital discharge follow-up - ICD9: V67.59, ICD10: Z09 (primary diagnosis) - improved - CONSULT TO ENDOCRINOLOGY 2. Mass of both adrenal glands (HCC) - ICD9: 255.8, ICD10: E27.8 - CONSULT TO ENDOCRINOLOGY 3. Mixed hyperlipidemia - ICD9: 272.2, ICD10: E78.2 - Control undetermined, due for labs - Continue current medications - Counseled on healthy diet and regular exercise - Discussed need for and benefit of weight loss. BMI 31.96 kg/(m2) - Follow up for routine visit - LIPID PANEL BASIC 4. Elevated blood sugar - ICD9: 790.29, ICD10: R73.9 - HEMOGLOBIN A1C 5. Adrenal mass 1 cm to 4 cm in diameter (HCC) - ICD9: 255.8, ICD10: E27.8 - CONSULT TO ENDOCRINOLOGY 6. Hypokalemia - ICD9: 276.8, ICD10: E87.6 - low on discharge - COMPREHENSIVE METABOLIC PANEL 7. Duodenal ulcer - ICD9: 532.90, ICD10: K26.9 - complete PPI and Carafate regime - follow-up if symptoms persist after completion Aissatou Podlogar, RECORD PRODUCER.[employer]NER Prescription instructions reviewed with patient as (more content not included)... Normal [facility] Basic Metabolic Profile (BMP )on 04-18-2024 BUN/CRE 23.0 RATIO High 10-20 [facility] Comment on above: Performed By: #### L 501.2300, L500.2500, L501.5200 #### [facility] [address] [place], [address] CA,Total 9.1 mg/dL Normal 8.5-10.1 [facility] Comment on above: Performed By: #### L 501.2300, L500.2500, L501.5200 #### [facility] [address] [place], [address] Chloride [Moles/Vol] 101 mmol/L Normal 98-107 [facility] Comment on above: Performed By: #### L 501.2300, L500.2500, L501.5200 #### [facility] [address] [place], [address] CO2 [Moles/Vol] 26.0 mmol/L Normal 21.0-32.0 [facility] Comment on above: Performed By: #### L 501.2300, L500.2500, L501.5200 #### [facility] [address] [place], [address] Creatinine [Mass/Vol] 0.48 mg/dL Low 0.55-1.02 [facility] Comment on above: Result Comment: The validity of the calculated GFR GFRAA in patients over 70 years has not been determined. Clinical correlation is essential. Performed By: #### L 501.2300, L500.2500, L501.5200 #### [facility] [address] [place], [address] ECRCL 126.93 ml/min Normal [facility] Comment on above: Performed By: #### L 501.2300, L500.2500, L501.5200 #### [facility] [address] [place], [address] EST GFR - AA 171 mL/min Normal >60 [facility] Comment on above: Result Comment: Afri can [place]ib[place] GFR Calc Performed By: #### L 501.2300, L500.2500, L501.5200 #### [facility] [address] [place], [address] GAP 6 Normal 5-15 [facility] Comment on above: Performed By: #### L 501.2300, L500.2500, L501.5200 #### [facility] [address] [place], [address] GFR/1.73 sq M.predicted among non-blacks MDRD (S/P/Bld) [Vol rate/Area] 142 mL/min/{1.73_m2} Normal >60 [facility] Comment on above: Result Comment: Non- GFR Calc Performed By: #### L 501.2300, L500.2500, L501.5200 #### [facility] [address] [place], [address] Glucose [Mass/Vol] 101 mg/dL Normal 74-106 [facility] Comment on above: Result Comment: Fast ing Glucose result from 100 to 125 mg/dL suggests IMPAIRED HOMEOSTASIS per A.D.A. criteria. Performed By: #### L 501.2300, L500.2500, L501.5200 #### [facility] [address] [place], [address] Potassium [Moles/Vol] 3.2 mmol/L Low 3.5-5.1 [facility] Comment on above: Performed By: #### L 501.2300, L500.2500, L501.5200 #### [facility] [address] [place], [address] Sodium [Moles/Vol] 133 mmol/L Low 136-145 [facility] Comment on above: Performed By: #### L 501.2300, L500.2500, L501.5200 #### [facility] [address] [place], [address] Urea nitrogen [Mass/Vol] 11 mg/dL Normal 7-18 [facility] Comment on above: Performed By: #### L 501.2300, L500.2500, L501.5200 #### [facility] [address] [place], [address] CBC W/Diff, Automatedon 04-07 Absolute Lymph 1.91 X10 3/uL Normal 0.83-4.51 [facility] Comment on above: Performed By: #### L 501.2300, L500.2500, L501.5200 #### [facility] [address] [place], [address] Absolute Neut 6.1 X10 3/uL Normal 2.0-7.7 [facility] Comment on above: Performed By: #### L 501.2300, L500.2500, L501.5200 #### [facility] [address] [place], [address] Basophils/100 WBC (Bld) 0.4 % Normal 0-1 [facility] Comment on above: Performed By: #### L 501.2300, L500.2500, L501.5200 #### [facility] [address] [place], [address] Eosinophils/100 WBC (Bld) 0.4 % Normal 0-5 [facility] Comment on above: Performed By: #### L 501.2300, L500.2500, L501.5200 #### [facility] [address] [place], [address] Erythrocyte distribution width (RBC) [Ratio] 13.3 % Normal 11.6-14.6 [facility] Comment on above: Performed By: #### L 501.2300, L500.2500, L501.5200 #### [facility] [address] [place], [address] Hematocrit (Bld) [Volume fraction] 35.3 % Low 37-47 [facility] Comment on above: Performed By: #### L 501.2300, L500.2500, L501.5200 #### [facility] [address] [place], [address] Hemoglobin (Bld) [Mass/Vol] 11.8 g/dL Low 12.0-15.0 [facility] Comment on above: Performed By: #### L 501.2300, L500.2500, L501.5200 #### [facility] [address] [place], [address] IG% 0.400 Normal 0.0-0.9 [facility] Comment on above: Result Comment: IG% - Immature Granulocytes (promyelocytes, myelocytes and metamyelocytes) > 1% indicates that a LEFT SHIFT is Present. Performed By: #### L 501.2300, L500.2500, L501.5200 #### [facility] [address] [place], [address] Lymphocytes/100 WBC (Bld) 22.3 % Normal 19-41 [facility] Comment on above: Performed By: #### L 501.2300, L500.2500, L501.5200 #### [facility] [address] [place], [address] MCH (RBC) [Entitic mass] 30.7 pg Normal 27.0-32.0 [facility] Comment on above: Performed By: #### L 501.2300, L500.2500, L501.5200 #### [facility] [address] [place], [address] MCHC (RBC) [Mass/Vol] 33.4 g/dL Normal 32-36 [facility] Comment on above: Performed By: #### L 501.2300, L500.2500, L501.5200 #### [facility] [address] [place], [address] MCV (RBC) [Entitic vol] 91.9 fL Normal 81-99 [facility] Comment on above: Performed By: #### L 501.2300, L500.2500, L501.5200 #### [facility] [address] [place], [address] Monocytes/100 WBC (Bld) 5.8 % Normal 0-10 [facility] Comment on above: Performed By: #### L 501.2300, L500.2500, L501.5200 #### [facility] [address] [place], [address] Neutrophils/100 WBC (Bld) 70.7 % High 47-70 [facility] Comment on above: Performed By: #### L 501.2300, L500.2500, L501.5200 #### [facility] [address] [place], [address] Nucleated RBC (Bld) [#/Vol] 0 10*3/uL Normal 0-5 [facility] Comment on above: Performed By: #### L 501.2300, L500.2500, L501.5200 #### [facility] [address] [place], [address] Platelet mean volume (Bld) [Entitic vol] 10.4 fL Normal 6.2-12.0 [facility] Comment on above: Performed By: #### L 501.2300, L500.2500, L501.5200 #### [facility] [address] [place], [address] Platelets (Bld) [#/Vol] 197 10*3/uL Normal 150-450 [facility] Comment on above: Performed By: #### L 501.2300, L500.2500, L501.5200 #### [facility] [address] [place], [address] RBC (Bld) [#/Vol] 3.84 10*6/uL Low 4.2-5.4 [facility] Comment on above: Performed By: #### L 501.2300, L500.2500, L501.5200 #### [facility] [address] [place], [address] RDW SD 45.0 fl High 35.1-43.9 [facility] Comment on above: Performed By: #### L 501.2300, L500.2500, L501.5200 #### [facility] [address] [place], [address] WBC (Bld) [#/Vol] 8.6 10*3/uL Normal 4.4-11.0 [facility] Comment on above: Performed By: #### L 501.2300, L500.2500, L501.5200 #### [facility] [address] [place], [address] Discharge Instructionon 04-07 Discharge Instruction [facility] Medical Records Department [address] [place] [address] Instructions for Home/Discharge Instructions 04/18/24 1337 MR#: [id number] Acct: [id number] Name: VIOLET CHIN Rep #: [id number] : 1965 58 From: Kostas Coffman DO PCP: Dr. Rico Lemus MD Status:ADM IN Discharge Instructions Diet Discharge Diet: No restrictions Activity Discharge Activity: Return to Normal Activity Return to work on:: 04/22/24 Follow Up Care Test Results: Test results from this visit will be discussed in further detail at your follow-up appointment, if applicable. Discharge Plan Admission Admit Date/Time: 04/16/24 19:39 Primary Reason for Your Visit: abdominal pain Attending Provider: Kostas Coffman Primary Care Provider: Rico Lemus Consulting Providers: Rodney Meyer; Trenton Hidalgo Instructions Additional Instructions / Restrictions: Follow-up with your primary care doctor in the next 1 to 2 weeks. [address] have him place a referral to endocrinology for you to follow-up on the adrenal masses seen on your CAT scan here. Please take the pantoprazole twice daily for 12 weeks, and take the sucralfate before meals for the next 2 weeks. Discharge Orders/Prescriptions Prescriptions: New sucralfate 1 gram Tablet 1 g PO 1HR_ACHS 14 Days Qty: 42 0RF pantoprazole 40 mg Tablet,Delayed Release (Dr/Ec) 40 mg PO BID 90 Days Qty: 180 0RF Continued bupropion HCl 150 mg tablet sustained-release 12 hr 150 mg PO BID atorvastatin 80 mg tablet 80 mg PO QHS sertraline 100 mg tablet 100 mg PO DAILY lisinopril-hydrochlorothi azide 10-12.5 mg tablet 1 tab PO DAILY Referrals / Follow Up: Rico Lemus MD [Primary Care Provider] - Disposition Disposition (needs filled in before D/C Order can be placed): Home, Self Care 04/18/24 1416 Kostas Coffman DO CC: Dr. Rico Lemus MD; Dr. Rodney Meyer DO; Dr. Trenton Hidalgo DO Signed Normal [facility] Ferritinon 04-18-2024 Ferritin [Mass/Vol] 242 ng/mL Normal 8-252 [facility] Comment on above: Order Comment: Has P atient had X-rays with Contrast this admission? NN Performed By: #### L 501.2300, L500.2500, L501.5200 #### [facility] [address] [place], [address] Folates, (Folic Acid)on 04-07 FOLATES 10.90 ng/mL Normal 3.1-55.4 [facility] Comment on above: Order Comment: Has Ranulfo roy had X-rays with Contrast this admission? NN Performed By: #### L 501.2300, L500.2500, L501.5200 #### [facility] [address] [place], [address] Iron+Iron Binding Capacityon 04-18-2024 Iron [Mass/Vol] 58 ug/dL Normal 50-170 [facility] Comment on above: Order Comment: Has Ranulfo roy had X-rays with Contrast this admission? NN Performed By: #### L 501.2300, L500.2500, L501.5200 #### [facility] [address] [place], [address] IRON SATURATION 25.3 Normal 15.0-55.0 [facility] Comment on above: Order Comment: Has Ranulfo roy had X-rays with Contrast this admission? NN Performed By: #### L 501.2300, L500.2500, L501.5200 #### [facility] [address] [place], [address] TIBC 229 ug/dL Low 250-450 [facility] Comment on above: Order Comment: Has Ranulfo roy had X-rays with Contrast this admission? NN Performed By: #### L 501.2300, L500.2500, L501.5200 #### [facility] [address] [place], [address] Magnesiumon 04-18-2024 Magnesium [Mass/Vol] 2.1 mg/dL Normal 1.6-2.6 [facility] Comment on above: Performed By: #### L 501.2300, L500.2500, L501.5200 #### [facility] [address] [place], [address] Phosphoruson 04-18-2024 Phosphate [Mass/Vol] 2.1 mg/dL Low 2.5-4.9 [facility] Comment on above: Performed By: #### L 501.2300, L500.2500, L501.5200 #### [facility] [address] [place], [address] Vitamin B12on 04-18-2024 Cobalamin (Vitamin B12) [Mass/Vol] 603 pg/mL Normal 211-911 [facility] Comment on above: Performed By: #### L 501.2300, L500.2500, L501.5200 #### [facility] [address] [place], [address] Bilirubin, Directon 04-17-20 Bilirubin.direct [Mass/Vol] 0.29 mg/dL Normal 0.00-0.30 [facility] Comment on above: Performed By: #### L 501.2300, L500.2500, L501.5200 #### [facility] [address] [place], [address] CBC W/Diff, Automatedon 04-07 Absolute Lymph 1.54 X10 3/uL Normal 0.83-4.51 [facility] Comment on above: Performed By: #### P SUIV #### [facility] [address] [place], [address] Absolute Neut 13.6 X10 3/uL High 2.0-7.7 [facility] Comment on above: Performed By: #### P SUIV #### [facility] [address] [place], [address] Basophils/100 WBC (Bld) 0.2 % Normal 0-1 [facility] Comment on above: Performed By: #### P SUIV #### [facility] [address] [place], [address] Eosinophils/100 WBC (Bld) 0.0 % Normal 0-5 [facility] Comment on above: Performed By: #### P SUIV #### [facility] [address] [place], [address] Erythrocyte distribution width (RBC) [Ratio] 13.2 % Normal 11.6-14.6 [facility] Comment on above: Performed By: #### P SUIV #### [facility] [address] [place], [address] Hematocrit (Bld) [Volume fraction] 39.6 % Normal 37-47 [facility] Comment on above: Performed By: #### P SUIV #### [facility] [address] [place], [address] Hemoglobin (Bld) [Mass/Vol] 13.4 g/dL Normal 12.0-15.0 [facility] Comment on above: Performed By: #### P SUIV #### [facility] [address] [place], [address] IG% 0.500 Normal 0.0-0.9 [facility] Comment on above: Result Comment: IG% - Immature Granulocytes (promyelocytes, myelocytes and metamyelocytes) > 1% indicates that a LEFT SHIFT is Present. Performed By: #### P SUIV #### [facility] [address] [place], [address] Lymphocytes/100 WBC (Bld) 9.7 % Low 19-41 [facility] Comment on above: Performed By: #### P SUIV #### [facility] [address] [place], [address] MCH (RBC) [Entitic mass] 30.9 pg Normal 27.0-32.0 [facility] Comment on above: Performed By: #### P SUIV #### [facility] [address] [place], [address] MCHC (RBC) [Mass/Vol] 33.8 g/dL Normal 32-36 [facility] Comment on above: Performed By: #### P SUIV #### [facility] [address] [place], [address] MCV (RBC) [Entitic vol] 91.5 fL Normal 81-99 [facility] Comment on above: Performed By: #### P SUIV #### [facility] [address] [place], [address] Monocytes/100 WBC (Bld) 4.6 % Normal 0-10 [facility] Comment on above: Performed By: #### P SUIV #### [facility] [address] [place], [address] Neutrophils/100 WBC (Bld) 85.0 % High 47-70 [facility] Comment on above: Performed By: #### P SUIV #### [facility] [address] [place], [address] Nucleated RBC (Bld) [#/Vol] 0 10*3/uL Normal 0-5 [facility] Comment on above: Performed By: #### P SUIV #### [facility] [address] [place], [address] Platelet mean volume (Bld) [Entitic vol] 10.1 fL Normal 6.2-12.0 [facility] Comment on above: Performed By: #### P SUIV #### [facility] [address] [place], [address] Platelets (Bld) [#/Vol] 206 10*3/uL Normal 150-450 [facility] Comment on above: Performed By: #### P SUIV #### [facility] [place], [address] RBC (Bld) [#/Vol] 4.33 10*6/uL Normal 4.2-5.4 [facility] Comment on above: Performed By: #### P SUIV #### [facility] [address] [place], [address] RDW SD 44.6 fl High 35.1-43.9 [facility] Comment on above: Performed By: #### P SUIV #### [facility] [address] [place], [address] WBC (Bld) [#/Vol] 16.0 10*3/uL High 4.4-11.0 [facility] Comment on above: Performed By: #### P SUIV #### [facility] [address] [place], [address] Comprehensive Metabolic Prof ilon 04-17-2024 Albumin [Mass/Vol] 3.0 g/dL Low 3.2-5.0 [facility] Comment on above: Performed By: #### L 501.2300, L500.2500, L501.5200 #### [facility] [address] [place], [address] Albumin/Globulin [Mass ratio] 0.8 {ratio} Low 0.9-2.4 [facility] Comment on above: Performed By: #### L 501.2300, L500.2500, L501.5200 #### [facility] [address] [place], [address] ALK P 75 U/L Normal 45-117 [facility] Comment on above: Performed By: #### L 501.2300, L500.2500, L501.5200 #### [facility] [address] [place], [address] ALT [Catalytic activity/Vol] 16 U/L Normal 13-56 [facility] Comment on above: Performed By: #### L 501.2300, L500.2500, L501.5200 #### [facility] [address] [place], [address] AST [Catalytic activity/Vol] 19 U/L Normal 15-37 [facility] Comment on above: Performed By: #### L 501.2300, L500.2500, L501.5200 #### [facility] [address] [place], [address] Bilirubin [Mass/Vol] 0.70 mg/dL Normal 0.20-1.00 [facility] Comment on above: Result Comment: For patients on eltrombopag therapy, use of Dimension Protivin TBIL is not recommended. Performed By: #### L 501.2300, L500.2500, L501.5200 #### [facility] [address] [place], [address] BUN/CRE 18.9 RATIO Normal 10-20 [facility] Comment on above: Performed By: #### L 501.2300, L500.2500, L501.5200 #### [facility] [address] [place], [address] CA,Total 9.2 mg/dL Normal 8.5-10.1 [facility] Comment on above: Performed By: #### L 501.2300, L500.2500, L501.5200 #### [facility] [address] [place], [address] Chloride [Moles/Vol] 98 mmol/L Normal 98-107 [facility] Comment on above: Performed By: #### L 501.2300, L500.2500, L501.5200 #### [facility] [address] [place], [address] CO2 [Moles/Vol] 27.0 mmol/L Normal 21.0-32.0 [facility] Comment on above: Performed By: #### L 501.2300, L500.2500, L501.5200 #### [facility] [address] [place], [address] Creatinine [Mass/Vol] 0.53 mg/dL Low 0.55-1.02 [facility] Comment on above: Result Comment: The validity of the calculated GFR GFRAA in patients over 70 years has not been determined. Clinical correlation is essential. Performed By: #### L 501.2300, L500.2500, L501.5200 #### [facility] [address] [place], [address] ECRCL 114.96 ml/min Normal [facility] Comment on above: Performed By: #### L 501.2300, L500.2500, L501.5200 #### [facility] [address] [place], [address] EST GFR - AA 152 mL/min Normal >60 [facility] Comment on above: Result Comment: Afri can [place] GFR Calc Performed By: #### L 501.2300, L500.2500, L501.5200 #### [facility] [address] [place], [address] GAP 7 Normal 5-15 [facility] Comment on above: Performed By: #### L 501.2300, L500.2500, L501.5200 #### [facility] [address] [place], [address] GFR/1.73 sq M.predicted among non-blacks MDRD (S/P/Bld) [Vol rate/Area] 126 mL/min/{1.73_m2} Normal >60 [facility] Comment on above: Result Comment: Non- GFR Calc Performed By: #### L 501.2300, L500.2500, L501.5200 #### [facility] [address] [place], [address] Globulin (S) [Mass/Vol] 4.0 g/dL Normal 2.2-4.2 [facility] Comment on above: Performed By: #### L 501.2300, L500.2500, L501.5200 #### [facility] [address] [place], [address] Glucose [Mass/Vol] 122 mg/dL High 74-106 [facility] Comment on above: Result Comment: Fast ing Glucose result from 100 to 125 mg/dL suggests IMPAIRED HOMEOSTASIS per A.D.A. criteria. Performed By: #### L 501.2300, L500.2500, L501.5200 #### [facility] [address] [place], [address] Potassium [Moles/Vol] 3.4 mmol/L Low 3.5-5.1 [facility] Comment on above: Performed By: #### L 501.2300, L500.2500, L501.5200 #### [facility] [address] [place], [address] Sodium [Moles/Vol] 132 mmol/L Low 136-145 [facility] Comment on above: Performed By: #### L 501.2300, L500.2500, L501.5200 #### [facility] [address], [address] T PROT 7.0 g/dL Normal 6.4-8.2 [facility] Comment on above: Performed By: #### L 501.2300, L500.2500, L501.5200 #### [facility] [address] [place], [address] Urea nitrogen [Mass/Vol] 10 mg/dL Normal 7-18 [facility] Comment on above: Performed By: #### L 501.2300, L500.2500, L501.5200 #### [facility] [address] [place], [address] Consultation - Surgicalon Consultation - Surgical [facility] Medical Records Department [address] [place] [address] Consultation - Surgical 04/17/24 0906 MR#: [id number] Acct: [id number] Name: VIOLET CHIN Rep #: [id number] : 1965 58 From: Flori KIRBY PA-C PCP: Dr. Rico Lemus MD Status:ADM IN Location: MA3 [id number] Stanley Tavarez MD on 04/17/24 at 1043 Addendum I personally saw and examined the patient independently of physician fleet administrative assistant. I agree with physician fleet administrative assistant assessment and plan. The patient is a 58-year-old female who began having gradual onset of right upper quadrant pain yesterday morning while at work. This was not associated with recent food. She has never had this type of pain previously. She denies any association in the past with right upper quadrant pain and fatty food intake. Her pain intensified throughout the day which prompted a visit to the emergency department yesterday afternoon. She was seen and evaluated by the ER staff. White blood cell count was elevated at 13,000. She underwent a CT scan that showed bilateral adrenal nodules as well as a polypoid mass within the duodenum. Gallbladder. Normal on CT scan as well as on dedicated right upper quadrant ultrasound. All of her LFTs were unremarkable. There was initial concern for the potential for ulcer and/or perforation however further review of the CT scan did not seem to conclude this. There was initially concern for possible transfer to a tertiary center hospital however no surrounding beds were available. She was subsequently admitted and a general surgery consult was obtained. This morning she states that her pain is significantly improved. She admits to some mild pain and this seems to be somewhat diffuse at this point. There is no rebound or guarding on examination. White count is slightly more elevated today. I spoke with hospitalist, and it sounds as though GI will likely scope patient either today or tomorrow to further evaluate this duodenal finding. Her symptoms seem less likely to be from biliary colic however I would consider HIDA scan following EGD if this lesion was not felt to be the cause for her pain. All questions and concerns were addressed with patient. Case was discussed also with hospitalist. We will continue to follow. Thank you for this consultation. 04/17/24 1043 Cosigner Signature (if applicable): cc: Dr. Rico Lemus MD * Signed Assessment Plan Assessment/Plan (1) Right upper quadrant abdominal pain: PLAN: I have been consulted in conjunction with Dr. Tavarez. He will independently evaluate this patient. Patient is a 58 y/o F who presented with a 1 day history of RUQ abdominal pain with nausea. CT scan of the ab/pel demonstrated bilateral adrenal masses, right larger than left. Endoluminal fatty polypoid lesion in the descending duodenum without obstruction. RUQ u/s was also obtained demonstrating normal gallbladder with no gallstones or pericholecystic fluid. Negative Gonzales's sign. Patient has never had upper or lower scopes. RUQ u/s in conjunction with patient's symptoms have a lower suspicion that this is gallbladder related. I would recommend evaluation by GI for possible upper scope to evaluate for potential duodenitis, duodenal ulceration and biopsy of the mass located in the duodenum. If the upper scope is essentially unremarkable, a HIDA scan may be obtained to evaluate functionality of the gallbladder. Patient was scheduled to have an MRI of the abdomen today, however this was canceled after discussion between the hospitalist and radiologist. Patient has had the opportunity to ask and have questions answered. Patient verbally understands and agrees with the plan. No surgical intervention is being planned at this point. Thank you for allowing us to participate in this patient's care. HPI Consult Data Date of Consult: 04/17/24 HPI Narrative Reason for Consultation: Right upper quadrant pain HPI Narrative: VIOLET CHIN, is a 58 F who presents with 1 day history of abdominal pain. She notes Monday morning she was at work when the pain started. She stated the pain progressed throughout the day. She went home from work to try to settle the pain. She states the pain was associated with nausea, no vomiting. She denies any fever. She notes the pain continued to worsen which is what brought her into the ED. Patient denies having this pain previously. She denies the pain being associated with food. She notes when she were to take a deep breath it would intensify the pain as well as laying flat. Patient states her pain was a 8-9 out of 10 and is currently a 3. She states she has lost approximately 35 pounds within the last 4 months. She notes this has been intentional through fasting diet. She Notes her stool has been small in size and more dry in character. She denies having previ (more content not included)... Normal [facility] EGD Reporton 04-17-2024 EGD Report [facility] Medical Records Department [address] [place] [address] EGD Report MR#: [id number] Acct: [id number] Name: VIOLET CHIN Rep #: [id number] : 1965 58 From: Alex Howard DO PCP: Dr. Rico Lemus MD Status:ADM IN Patient Name: Violet Chin Procedure Date: 04/17/2024 1:14 PM Date of : 1965 Age: 58 Procedure: Upper GI endoscopy Indications: Epigastric abdominal pain, Abdominal pain in the right upper quadrant, Dysphagia Providers: Alex Howard DO Medicines: Monitored Anesthesia Care Patient Profile: This is a 58 year old female. Refer to note in patient chart for documentation of history and physical. Complications: No immediate complications. Procedure: Pre-Anesthesia Assessment: - Prior to the procedure, a History and Physical was performed, and patient medications and allergies were reviewed. The patient is competent. The risks and benefits of the procedure and the sedation options and risks were discussed with the patient. All questions were answered and informed consent was obtained. Patient identification and proposed procedure were verified by the physician in the pre-procedure area. Mental Status Examination: alert and oriented. Airway Examination: normal oropharyngeal airway and neck mobility. Respiratory Examination: clear to auscultation. CV Examination: normal. Prophylactic Antibiotics: The patient does not require prophylactic antibiotics. Prior Anticoagulants: The patient has taken no anticoagulant or antiplatelet agents. ASA Grade Assessment: III - A patient with severe systemic disease. After reviewing the risks and benefits, the patient was deemed in satisfactory condition to undergo the procedure. The anesthesia plan was to use monitored anesthesia care (MAC). Immediately prior to administration of medications, the patient was re-assessed for adequacy to receive sedatives. The heart rate, respiratory rate, oxygen saturations, blood pressure, adequacy of pulmonary ventilation, and response to care were monitored throughout the procedure. The physical status of the patient was re-assessed after the procedure. After obtaining informed consent, the endoscope was passed under direct vision. Throughout the procedure, the patient's blood pressure, pulse, and oxygen saturations were monitored continuously. The Endoscope was introduced through the mouth, and advanced to the second part of duodenum. The upper GI endoscopy was accomplished without difficulty. The patient tolerated the procedure well. Scope In: 1:25:26 PM Scope Out: 1:29:26 PM Total Procedure Duration Time 0 hours 4 minutes 0 seconds Findings: The examined esophagus was normal. No gross lesions were noted in the entire examined stomach. Few non-bleeding linear duodenal ulcers with no stigmata of bleeding were found in the duodenal bulb. The largest lesion was 3 mm in largest dimension. There was a large lipoma, 30 mm in diameter, in the first portion of the duodenum. Biopsies were taken with a cold forceps for histology. Verification of patient identification for the specimen was done. Estimated blood loss was minimal. Impression: - Normal esophagus. - No gross lesions in the entire stomach. - Non-bleeding duodenal ulcers with no stigmata of bleeding. - Duodenal lipoma. Biopsied. Recommendation: - Return patient to hospital last for ongoing care. - Full liquid diet today. - Use sucralfate tablets 1 gram PO QID for 2 weeks. - Use Protonix (pantoprazole) 40 mg PO BID for 12 weeks. - Continue present medications. Procedure Code(s): --- Professional --- 16724, Esophagogastroduodenoscop y, flexible, transoral; with biopsy, single or multiple CPT copyright 2021 [employer]. All rights reserved. The codes documented in this report are preliminary and upon spindle tester review may be revised to meet current compliance requirements. Alex Howard DO 04/17/2024 3:56:56 PM This report has been signed electronically. Number of Addenda: 0 Note Initiated On: 04/17/2024 1:14 PM 04/17/24 1557 Date Alex Howard DO Cosigner Signature: Date (if indicated) CC: Dr. Rico Lemus MD; Alex Howard DO Date Dictated: 04/17/24 1314 Date Transcribed: Import Clerk: GRISEL Signed Normal [facility] MR/CON.PCM.GIon 04-17-2024 MR/CON.PCM.GI [facility] Medical Records Department [address] [place] [address] Consultation - GI 04/17/24 1315 MR#: [id number] Acct: [id number] Name: VIOLET CHIN Rep #: [id number] : 1965 58 From: Alex Friend DO PCP: Dr. Rico Lemus MD Status:ADM IN Location: [facility] [id number] HPI Consult Data Date of Consult: 04/17/24 HPI Narrative Reason for Consultation: Abnormal CT scan HPI Narrative: VIOLET CHIN, is a 58 F with presents to [facility] ER complaining of abdominal pain and fever. She has a past medical history of a past medical history of essential hypertension, hyperlipidemia, obesity; with BMI of 31.2 this admission, tobacco abuse, cannabis abuse, depression, history of tubal ligation and OA. Ms. Chin reports her symptoms began earlier this morning when she woke up not feeling well and noted that her pain worsened while she was at work so she decided to come in for further evaluation and treatment. She primarily complains of abdominal pain that is focused in her RUQ, 6/10 and was made worse by taking a deep breath. She also admits to facial flushing, nausea, chills, SOB and feeling like something is stuck in her intestines that she cannot mobilize. She denies a personal or family history of cancer or nonmalignant lipomatous masses and she states she has never underwent an upper or lower endoscopy. There is no report of weight loss, blood in stools or similar previous episodes. I also spoke to her who was present at the bedside and answered his questions to the best of my ability. In the ER she was noted to have a CT scan of the abdomen and pelvis that revealed an Endoluminal Fatty Polypoid Lesion in the descending Duodenum without evidence of obstruction but with appearance of air in bowel wall worrisome for evolving Pneumatosis with Fever up to 100.8 degrees Fahrenheit and Leukocytosis of 13.5K present on admission with additional CT evidence of Bilateral Adrenal Masses markedly larger on the Right with Numerous Liver Cysts. [facility] Medical History Bleeding tendency Post-menopausal Back pain due to injury High cholesterol Smoker Depression Hypertension Home Medications ???Medication ???Instructions ???Recorded ???Last Taken ???Type atorvastatin 80 mg tablet 80 mg PO QHS cholesterol 04/16/24 Unknown History bupropion HCl 150 mg tablet,12 hr 150 mg PO BID 04/16/24 Unknown History sustained-release lisinopril 10 1 tab PO DAILY 04/16/24 Unknown History mg-hydrochlorothiazide 12.5 mg tablet sertraline 100 mg tablet 100 mg PO DAILY 04/16/24 Unknown History Allergy/AdvReac Type Severity Reaction Status Date / Time fluoxetine (From SWII[facility] System) Allergy Abd Verified 01/06/24 17:00 cramps/diarrhea Surgical History S/P tubal ligation Social History Smoking Status: Current every day smoker tobacco type: cigarettes ROS ROS Narrative Review of Systems: Constitutional: Patient admits to fever but denies chills. Eyes: Patient denies changes in vision or discharge from eyes. ENT: Patient denies runny nose, sore throat or ear pain. Resp: Patient admits to pleuritic Right-sided chest pain made worse with raking a deep breath. CV: Patient admits to chest pain with deep breathing but denies palpitations or heart racing. GI: Patient admits to 6/10 RUQ abdominal pain with a feeling something is lodged in her bowel that she cannot mobilize as per HPI. : Patient denies dysuria, hematuria or urinary frequency/urgency. MSK: Patient denies arthralgias or myalgias. Skin: Patient admits to facial redness and flushing but she denies abscess or jaundice. Psych: Patient denies symptoms of uncontrolled depression or anxiety. Neuro: Patient denies headache, paresthesias or focal neurologic weakness. Allergy: Patient denies lip swelling, tongue swelling or urticaria. Hematology: Patient denies easy bleeding or easy bruisability. Endocrinology: Patient denies polyuria, polydipsia or polyphagia. 14 point ROS otherwise negative except positives noted above in HPI. Physical Exam Const alert and oriented x3 General Appearance: cooperative HEENT normocephalic, head/scalp atraumatic and hearing grossly normal bilaterally HEENT Narrative: Mucous membranes dry. Eyes PERRL and EOMs intact bilaterally Neck no lymphadenopathy and supple Resp normal respiratory effort, no retractions, no use of accessory muscles and clear to auscultation bilaterally Cardio regular rate and regular rhythm GI normal to inspection, nondistended, normoactive bowel sounds, soft to palpation and non-distended GI Narrative: RUQ TTP. Extremity normal to inspection, full RO (more content not included)... Normal [facility] MR/POSTOP.ANE 04-17-2024 MR/POSTOP.[facility] Medical Records Department [address] [place] [address] Anesthesia Postop Eval I 04/17/24 1339 MR#: [id number] Acct: [id number] Name: VIOLET CHIN Rep #: [id number] : 1965 58 From: Xavier Carmona MD PCP: Dr. Rico Lemus MD Status:ADM IN Y Race: C Location: [place] [address] Anesthesia: Postop Eval I Current Vital Signs Temperature: 97.5 F Pulse Rate: 70 Blood Pressure: 107/54 Respiratory Rate: 16 Pulse Ox: 94 Oxygen Delivery Method: Room Air Assessment Airway patent: Yes Spontaneous unlabored respirations: Yes Mental status: Awake and Calm nausea: No Vomiting: No Anesthesia Complication: No Fluid Hydration Crystalloid volume administer (ml): 200 Total IV fluid infused: 200 Progress Note Anesthesia document: Postop Eval 1 completed: Yes 04/17/24 1341 Date Xavier Carmona MD Cosigner Signature: Date CC: Signed [facility] [id number] 04-17-2024 MR/POSTOPAN2 [facility] Medical Records Department [address] [place] [address] Anesthesia Postop Eval II 04/17/24 1744 MR#: [id number] Acct: [id number] Name: VIOLET CHIN Rep #: [id number] : 1965 58 From: Juan Pablo Chairez MD PCP: Dr. Rico Lemus MD Status:ADM IN Y Race: C Location: [place] [address] Anesthesia Postop Eval I Sum Postop Eval Completion status Anesthesia document: Postop Eval 1 completed: Yes Anesthesia Postop Eval I Summary Anesthesia Postop Eval I Summary: Anesthesia Postop Eval I: Assessment Summary Airway patent Yes 04/17/24 13:41 Spontaneous unlabored Yes 04/17/24 13:41 respirations Mental status Awake,Calm 04/17/24 13:41 nausea No 04/17/24 13:41 Vomiting No 04/17/24 13:41 Anesthesia Postop Eval I: Fluid Summary Crystalloid volume administer 200 04/17/24 13:41 (ml) Colloids volume administered ( ml) Blood Product volume administered (ml) Total IV fluid infused 200 04/17/24 13:41 Anesthesia Postop Eval I: Summary Notes Anesthesia Complication No 04/17/24 13:41 Anesthesia Complication Comment: Post-operative progress note Anesthesia: Postop Eval II Evaluation Mental status: Awake Pain Level: 0 nausea: No Vomiting: No 04/17/241743 Date Juan Pablo Chairez MD Cosigner Signature: Date CC: Signed Normal [facility] Magnesiumon 04-17-2024 Magnesium [Mass/Vol] 2.0 mg/dL Normal 1.6-2.6 [facility] Comment on above: Performed By: #### L 501.2300, L500.2500, L501.1030 #### [facility] Laboratory [address] [place], [place], [address] Phosphoruson 04-17-2024 Phosphate [Mass/Vol] 2.4 mg/dL Low 2.5-4.9 [facility] Comment on above: Performed By: #### L 501.2300, L500.2500, L501.5200 #### [facility] Laboratory [address] [place], [place], [address] Surgery Specimen Level Gris 04-17-2024 Surgery Specimen Level IV Patient Age/Sex Location Account Attending Physician VIOLET CHIN 58/F MS3 [id number] Dr. Kostas Coffman DO Specimen: [id number] Received: 04/18/24 Status: MALCOLM Stewart Num: [id number] Spec Type: EGD BIOPSY Subm Dr: DO ERIBERTO Hernandez OPERATION: EGD with biopsy PRE-OP DIAGNOSIS: Abnormal CT TISSUE SUBMITTED: Duodenal mass biopsy MICROSCOPIC DIAGNOSIS Duodenal mass, biopsy: Polypoid fragments of benign enteric mucosa with mild chronic inflammation. AM. 04/19/2024 MICROSCOPIC DESCRIPTION Slides are reviewed. GROSS DESCRIPTION Received in fixative is one container labeled with the patient's name and designated Duodenal mass biopsy. The specimen consists of two irregular fragments of light sands soft tissue that in aggregate measure 0.6 x 0.3 x 0.1 cm. The specimen is totally submitted in one cassette. SJ. 04/18/2024 TC:3 CPT:35130 Patient Age/Sex Location Account Attending Physician VIOLET CHIN 58/F MS3 [id number] Dr. Kostas Coffman DO Signed (signature on file) Dr. Talib Booker, 04/19/24 1245 Normal [facility] Comment on above: Performed By: #### P SUIV #### [facility] Laboratory [address] [place], [place], [address] Thyroid Stim Hormone (TSH)on 04-17-2024 TSH 1.350 uIU/mL Normal 0.358-3.740 [facility] Comment on above: Performed By: #### L 501.2300, L500.2500, L501.5200 #### [facility] [address] [place], [place], [address] 12 Lead EKGon 04-16-2024 12 Lead EKG [facility] Cardiovascular Services [address] [place] [address] 12 Lead EKG 04/16/24 1234 MR#: [id number] Acct: [id number] Name: VIOLET CHIN Rep #: [id number] : 1965 58 From: Joshua Baumann MD Attending Dr: Dr. Trenton Hidalgo DO Status: A DM IN Ordering Dr: Bethel Butterfield DO Date: 04/16/24 Location: MS3 Sex: F C Admitted: 04/16/24 Test Reason : LEFT SIDE PAIN Blood Pressure : / mmHG Vent. Rate : 087 BPM Atrial Rate : 087 BPM P-R Int : 154 ms QRS Dur : 092 ms QT Int : 366 ms P-R-T Axes : 019 072 044 degrees QTc Int : 440 ms Normal sinus rhythm Normal ECG Confirmed by BRITTNI CANTRELL, JOSHUA ([id number]), assignment editor EDMUND VALVERDE ([id number]) on 04/17/2024 1:21:28 PM Referred By: NIKITA Confirmed By:JOSHUA BAUMANN MD 04/17/24 1321 Date Joshua Baumann MD CC: Dr. Rico Lemus MD; Dr. Trenton Hidalgo DO; Dr. Bethel Butterfield DO Signed Normal [facility] Abdomen/Pelvis W IV Cont ONL Yon 04-16-2024 Abdomen/Pelvis W IV Cont ONLY [facility] Imaging Services [address] [place], [place] [address] Abdomen/Pelvis W IV Cont ONLY MR#: [id number] Acct: [id number] Name: VIOLET CHIN Rep #: [id number] : 1965 F 58 From: Corky Gregory PCP: Dr. Rico Lemus MD Status: REG ER Study: Abdomen/Pelvis W IV Cont ONLY Date of Exam: Exam# [id number] Ordering Dr: Bethel Butterfield DO ADDENDUM by Dr. Erwin Osborn MD on 04/16/24 at 1729 ADDENDUM [id number] ADDENDUM: Upon additional review of the images, there is no definitive evidence for duodenal perforation however there is a large intramural mass within the descending portion of the duodenum demonstrating Hounsfield numbers consistent with fat. Electronically Signed: Erwin Osborn MD at 17:29 EDT , 04/16/241728 Date cc: Dr. Rico Lemus MD; Dr. Bethel Butterfield, DO * Signed ADDENDUM by Dr. Erwin Osborn MD on 04/16/[address]/Abdomen/Pelvis W IV Cont ONLY IMPRESSION: undefined 04/16/241734 Date cc: Dr. Rico Lemus MD; Dr. Bethel Butterfield, * Signed [id number] STUDY: CT ABDOMEN AND PELVIS WITH CONTRAST REASON FOR EXAM: Female, 58 years old. RUQ pain RADIATION DOSAGE (If Supplied By Facility): CTDIvol = ( 18.01 ) mGy, DLP = ( 1596.91 ) mGycm TECHNIQUE: IV 100mL Isovue-370 was administered. Transaxial images were obtained from the dome of the diaphragm to the symphysis pubis. Multiplanar coronal and sagittal images were reformatted. The protocol utilizes one or more of the following dose reduction techniques: automated exposure control, adjustment of mA and/or kV according to patient size,and/or use of iterative reconstruction technique. COMPARISON: No relevant prior comparison study available FINDINGS: The visualized lung bases are essentially unremarkable. The visualized portions of the heart are within normal limits. Coronary calcifications. Multiple low-density lesions in the liver likely representing cysts, the largest measures about 1.5 cm in the right lobe. Normal gallbladder and extrahepatic biliary system. Normal spleen. Normal pancreas. Large 4 cm mass in the right adrenal gland. Smaller mass in the left adrenal gland measuring about 2 cm. Left renal parapelvic cyst. Another smaller cyst in the left kidney measuring about 9 mm. No evidence of hydronephrosis. Normal visualized stomach. 2.5 cm fatty lesion in the second stage of the duodenum could represent polyp or lipoma. No evidence of small bowel obstruction. Fecal retention. No evidence of acute diverticulitis. The appendix is visualized and appears normal. There is diffuse atherosclerotic calcification of the abdominal aorta, without a demonstrated aneurysm. No retroperitoneal adenopathy. Normal urinary bladder. No pelvic mass. Normal abdominal wall. Mild degenerative changes of the spine. CT/Abdomen/Pelvis W IV Cont ONLY IMPRESSION: 1. Bilateral adrenal masses markedly larger on the right side for which correlation with nonemergent MRI with contrast or CT scan with adrenal protocol. 2. Endoluminal fatty polypoid lesion in the descending duodenum without evidence of obstruction at this time. GI consult is recommended. 3. Liver cysts. 4. Otherwise no focal acute inflammatory process. Electronically Signed: Corky Johnson MD at 13:46 EDT , CC: Dr. Rico Lemus MD; Dr. Bethel Butterfield DO Import Clerk: Signed Normal [facility] BNP,B-Type NATRIURETIC PEPTI Gus 04-16-2024 Natriuretic peptide B (Bld) [Mass/Vol] 134.7 pg/mL High 0-100 [facility] Comment on above: Performed By: #### P SUIV #### [facility] Laboratory [address] [place], [address] CBC W/Diff, Automatedon 04-07-2023 Absolute Lymph 1.15 X10 3/uL Normal 0.83-4.51 [facility] Comment on above: Performed By: #### P SUIV #### [facility] [address] [place], [address] Absolute Neut 11.5 X10 3/uL High 2.0-7.7 [facility] Comment on above: Performed By: #### P SUIV #### [facility] [address] [place], [address] Basophils/100 WBC (Bld) 0.3 % Normal 0-1 [facility] Comment on above: Performed By: #### P SUIV #### [facility] [address] [place], [address] Eosinophils/100 WBC (Bld) 0.1 % Normal 0-5 [facility] Comment on above: Performed By: #### P SUIV #### [facility] [address] [place], [address] Erythrocyte distribution width (RBC) [Ratio] 13.0 % Normal 11.6-14.6 [facility] Comment on above: Performed By: #### P SUIV #### [facility] [address] [place], [address] Hematocrit (Bld) [Volume fraction] 43.6 % Normal 37-47 [facility] Comment on above: Performed By: #### P SUIV #### [facility] [address] [place], [address] Hemoglobin (Bld) [Mass/Vol] 14.9 g/dL Normal 12.0-15.0 [facility] Comment on above: Performed By: #### P SUIV #### [facility] [address] [place], [address] IG% 0.400 Normal 0.0-0.9 [facility] Comment on above: Result Comment: IG% - Immature Granulocytes (promyelocytes, myelocytes and metamyelocytes) > 1% indicates that a LEFT SHIFT is Present. Performed By: #### P SUIV #### [facility] [address] [place], [address] Lymphocytes/100 WBC (Bld) 8.5 % Low 19-41 [facility] Comment on above: Performed By: #### P SUIV #### [facility] [address] [place], [address] MCH (RBC) [Entitic mass] 30.9 pg Normal 27.0-32.0 [facility] Comment on above: Performed By: #### P SUIV #### [facility] [address] [place], [address] MCHC (RBC) [Mass/Vol] 34.2 g/dL Normal 32-36 [facility] Comment on above: Performed By: #### P SUIV #### [facility] [address] [place], [address] MCV (RBC) [Entitic vol] 90.5 fL Normal 81-99 [facility] Comment on above: Performed By: #### P SUIV #### [facility] [address] [place], [address] Monocytes/100 WBC (Bld) 5.1 % Normal 0-10 [facility] Comment on above: Performed By: #### P SUIV #### [facility] [address] [place], [address] Neutrophils/100 WBC (Bld) 85.6 % High 47-70 [facility] Comment on above: Performed By: #### P SUIV #### [facility] [address] [place], [address] Nucleated RBC (Bld) [#/Vol] 0 10*3/uL Normal 0-5 [facility] Comment on above: Performed By: #### P SUIV #### [facility] [address] [place], [address] Platelet mean volume (Bld) [Entitic vol] 9.9 fL Normal 6.2-12.0 [facility] Comment on above: Performed By: #### P SUIV #### [facility] [address] [place], [address] Platelets (Bld) [#/Vol] 236 10*3/uL Normal 150-450 [facility] Comment on above: Performed By: #### P SUIV #### [facility] [address] [place], [address] RBC (Bld) [#/Vol] 4.82 10*6/uL Normal 4.2-5.4 [facility] Comment on above: Performed By: #### P SUIV #### [facility] [address] [place], [address] RDW SD 42.8 fl Normal 35.1-43.9 [facility] Comment on above: Performed By: #### P SUIV #### [facility] [address] [place], [address] WBC (Bld) [#/Vol] 13.5 10*3/uL High 4.4-11.0 [facility] Comment on above: Performed By: #### P SUIV #### [facility] [address] [place], [address] CTA Chest W/WO Contraston CTA Chest W/WO Contrast [facility] Imaging Services [address] [address] CTA Chest W/WO Contrast MR#: [id number] Acct: [id number] Name: VIOLET CHIN Rep #: [id number] : 1965 F 58 From: Corky Gregory PCP: Dr. Rico Lemus MD Status: [facility] ER Study: CTA Chest W/WO Contrast Date of Exam: 04/16/24 Exam# [id number] Ordering Dr: Bethel Butterfield DO [id number] STUDY: CTA CHEST REASON FOR EXAM: Female, 58 years old. Hurts to take deep breath on right RADIATION DOSAGE (If Supplied By Facility): CTDIvol = ( 18.01 ) mGy, DLP = ( 1596.91 ) mGycm TECHNIQUE: The examination was performed with the intravenous administration of IV 100mL Isovue-370. Post-processing of the angiographic images was performed, with multiplanar reformation and 3D reconstruction. The protocol utilizes one or more of the following dose reduction techniques: automated exposure control, adjustment of mA and/or kV according to patient size,and/or use of iterative reconstruction technique. COMPARISON: No relevant prior comparison study available FINDINGS: Normal enhancement of the main pulmonary artery and right and left pulmonary arteries. Normal enhancement of the bilateral peripheral pulmonary arteries. There is no demonstrated pulmonary embolism. Severe motion artifacts in the upper chest obscuring the thoracic inlet and aortic arch. There is no demonstrated aortic dissection. Normal heart and pericardium. There are calcifications of the coronary arteries. Normal mediastinum. Normal hilar regions. Normal visualized trachea and bronchi. The lungs are well expanded. There are no pulmonary infiltrates. Severe motion artifacts during evaluation of the upper chest. There are no pleural effusions. Normal chest wall structures. No demonstrated acute osseous changes. The visualized portions of the upper abdomen demonstrate small liver lesions likely representing small cysts. CT/CTA Chest W/WO Contrast IMPRESSION: 1. No evidence of pulmonary embolism. 2. No focal acute pulmonary infiltrate or pleural effusions. Electronically Signed: Corky Johnson MD at 13:36 EDT , CC: Dr. Rico Lemus MD; Dr. Bethel Butterfield DO Import Clerk: Signed Normal [facility] Comprehensive Metabolic Prof ilon 04-16-2024 Albumin [Mass/Vol] 3.9 g/dL Normal 3.2-5.0 [facility] Comment on above: Order Comment: 'TROP ' Serial specimen #1, #2 or #3: 1 Performed By: #### P SUIV #### [facility] [address] [place], [address] Albumin/Globulin [Mass ratio] 1.0 {ratio} Normal 0.9-2.4 [facility] Comment on above: Order Comment: 'TROP ' Serial specimen #1, #2 or #3: 1 Performed By: #### P SUIV #### [facility] [address] [place], [address] ALK P 100 U/L Normal 45-117 [facility] Comment on above: Order Comment: 'TROP ' Serial specimen #1, #2 or #3: 1 Performed By: #### P SUIV #### [facility] [address] [place], [address] ALT [Catalytic activity/Vol] 19 U/L Normal 13-56 [facility] Comment on above: Order Comment: 'TROP ' Serial specimen #1, #2 or #3: 1 Performed By: #### P SUIV #### [facility] [address] [place], [address] AST [Catalytic activity/Vol] 22 U/L Normal 15-37 [facility] Comment on above: Order Comment: 'TROP ' Serial specimen #1, #2 or #3: 1 Performed By: #### P SUIV #### [facility] [address] [place], [address] Bilirubin [Mass/Vol] 0.60 mg/dL Normal 0.20-1.00 [facility] Comment on above: Order Comment: 'TROP ' Serial specimen #1, #2 or #3: 1 Result Comment: For patients on eltrombopag therapy, use of Dimension Protivin TBIL is not recommended. Performed By: #### P SUIV #### [facility] [address] [place], [address] BUN/CRE 31.8 RATIO High 10-20 [facility] Comment on above: Order Comment: 'TROP ' Serial specimen #1, #2 or #3: 1 Performed By: #### P SUIV #### [facility] [address] [place], [address] CA,Total 10.1 mg/dL Normal 8.5-10.1 [facility] Comment on above: Order Comment: 'TROP ' Serial specimen #1, #2 or #3: 1 Performed By: #### P SUIV #### [facility] [address] [place], [address] Chloride [Moles/Vol] 96 mmol/L Low 98-107 [facility] Comment on above: Order Comment: 'TROP ' Serial specimen #1, #2 or #3: 1 Performed By: #### P SUIV #### [facility] [address] [place], [address] CO2 [Moles/Vol] 27.0 mmol/L Normal 21.0-32.0 [facility] Comment on above: Order Comment: 'TROP ' Serial specimen #1, #2 or #3: 1 Performed By: #### P SUIV #### [facility] [address] [place], [address] Creatinine [Mass/Vol] 0.53 mg/dL Low 0.55-1.02 [facility] Comment on above: Order Comment: 'TROP ' Serial specimen #1, #2 or #3: 1 Result Comment: The validity of the calculated GFR GFRAA in patients over 70 years has not been determined. Clinical correlation is essential. Performed By: #### P SUIV #### [facility] [address] [place], [address] ECRCL 115.87 ml/min Normal [facility] Comment on above: Order Comment: 'TROP ' Serial specimen #1, #2 or #3: 1 Performed By: #### P SUIV #### [facility] [address] [place], [address] EST GFR - AA 151 mL/min Normal >60 [facility] Comment on above: Order Comment: 'TROP ' Serial specimen #1, #2 or #3: 1 Result Comment: Afri can [place] GFR Calc Performed By: #### P SUIV #### [facility] [address] [place], [address] GAP 8 Normal 5-15 [facility] Comment on above: Order Comment: 'TROP ' Serial specimen #1, #2 or #3: 1 Performed By: #### P SUIV #### [facility] [address] [place], [address] GFR/1.73 sq M.predicted among non-blacks MDRD (S/P/Bld) [Vol rate/Area] 125 mL/min/{1.73_m2} Normal >60 [facility] Comment on above: Order Comment: 'TROP ' Serial specimen #1, #2 or #3: 1 Result Comment: Non- GFR Calc Performed By: #### P SUIV #### [facility] [address] [place], [address] Globulin (S) [Mass/Vol] 4.0 g/dL Normal 2.2-4.2 [facility] Comment on above: Order Comment: 'TROP ' Serial specimen #1, #2 or #3: 1 Performed By: #### P SUIV #### [facility] [address] [place], [address] Glucose [Mass/Vol] 129 mg/dL High 74-106 [facility] Comment on above: Order Comment: 'TROP ' Serial specimen #1, #2 or #3: 1 Result Comment: Fast ing Glucose result greater than or equal to 126 mg/dL suggests DIABETES MELLITUS per A.D.A. criteria. Performed By: #### P SUIV #### [facility] [address] [place], [address] Potassium [Moles/Vol] 3.5 mmol/L Normal 3.5-5.1 [facility] Comment on above: Order Comment: 'TROP ' Serial specimen #1, #2 or #3: 1 Performed By: #### P SUIV #### [facility] [address], [address] Sodium [Moles/Vol] 131 mmol/L Low 136-145 [facility] Comment on above: Order Comment: 'TROP ' Serial specimen #1, #2 or #3: 1 Performed By: #### P SUIV #### [facility] [address] [place], [place], [address] T PROT 7.9 g/dL Normal 6.4-8.2 [facility] Comment on above: Order Comment: 'TROP ' Serial specimen #1, #2 or #3: 1 Performed By: #### P SUIV #### [facility] [address] [place], [address] Urea nitrogen [Mass/Vol] 17 mg/dL Normal 7-18 [facility] Comment on above: Order Comment: 'TROP ' Serial specimen #1, #2 or #3: 1 Performed By: #### P SUIV #### [facility] [address] [place], [id number] Emergency Department Summary on 04-16-2024 Emergency Department Summary [facility] Medical Records Department [address] [place] [address] Emergency Department Summary 04/16/24 MR#: [id number] Acct: [id number] Name: VIOLET CHIN Rep #: [id number] : 1965 58 From: Bethel Butterfield DO PCP: Dr. Rico Lemus MD Status:ADM IN Location: [facility] [id number] Alex Dial MD on 04/17/24 at [address] Erwin Osborn MD on 04/16/24 at 1729 ADDENDUM [id number] ADDENDUM: Upon additional review of the images, there is no definitive evidence for duodenal perforation however there is a large intramural mass within the descending portion of the duodenum demonstrating Hounsfield numbers consistent with fat. Electronically Signed: Erwin Osborn MD at 17:29 EDT Pt checked out to me. She developed a low-grade fever while waiting for disposition. I evaluated her. She has had RUQ pain and tenderness (more laterally than toward epigastrium), and it is worse w/ deep inspiration. She became hypoxic, requiring a 2L NC as well. Given that her CTA chest is essentially normal, I suspect her hypoxia is due to hypoventilation due to pain when she breaths. Her pain has been somewhat colicky all day and she has had some vague discomfort radiating into the R shoulder area, making me concerned about a biliary etiology. Therefore, I added an ultrasound of the gallbladder to her workup. I viewed the images and reviewed the results which I agree with, it is negative for gallstones and/or cholecystitis. I also reviewed the CT A/P images and had radiology review these images again; the addendum is above, which I also reviewed and agree with. I do not think there is a perforation in the bowel. Given all this, I do think we have the capability of keeping this patient here at this facility as opposed to requiring a transfer to a tertiary care center. I discussed all this with Dr. Howard GI as well as Dr. Tavarez surgery, they agree and will consult if asked in the AM. Discussed w/ hospitalist for admission. 04/17/24 1256 Cosigner Signature (if applicable): cc: Dr. Rico Lemus MD * Signed HPI History of Present Illness Chief Complaint: Abd Pain Narrative Narrative: Patient is a 58-year-old female past medical history hypertension, hypercholesteremia who presents to the emergency department with chief complaint of right side pain and hurting when she attempts take a deep breath. Patient states that this morning she woke up not feeling well and noted that her pain progressively worsened while she was at work today prompting her to come here for further evaluation management. Patient denies any history of blood clots in her legs or lungs denies any recent travel history. Patient states that she does smoke daily and occasional marijuana use denies any other drug use and denies alcohol use. Patient denies any recent sick contacts. [facility] Medical History (Updated 04/16/24 @ 13:22 by Radha Howard) Depression Hypertension Home Medications ???Medication ???Instructions ???Recorded ???Last Taken ???Type atorvastatin 80 mg tablet 80 mg PO QHS cholesterol 04/16/24 Unknown History bupropion HCl 150 mg tablet,12 hr 150 mg PO BID 04/16/24 Unknown History sustained-release lisinopril 10 1 tab PO DAILY 04/16/24 Unknown History mg-hydrochlorothiazide 12.5 mg tablet sertraline 100 mg tablet 100 mg PO DAILY 04/16/24 Unknown History Allergy/AdvReac Type Severity Reaction Status Date / Time fluoxetine (From Prozac) Allergy Abd Verified 01/06/24 17:00 cramps/diarrhea Social History Smoking Status: Current every day smoker tobacco type: cigarettes ROS ROS ED ROS Narrative Constitutional: Complains of a chills, diffuse bodyaches, denies fevers, lightheadedness, dizziness Eyes: Denies change in vision double vision blurry vision Cardiovascular: Complains of some right-sided chest discomfort near her rib region denies palpitations Respiratory: Complains of some shortness of breath Abdomen: Complains of abdominal pain in the right upper region as noted above rates this a 6 out of 10. : Denies any pain phonation, hematuria compel area Neurological: Denies numbness, weakness, tingling Musculoskeletal: Denies any back pain Skin: Denies rashes, lesions EXAM Physical Exam Narrative Exam Narrative: General: Patient lying in bed rest comfortably did not appear to be acute distress Head: Atraumatic, normocephalic Eyes: PERRL bilateral, EOMI bilateral, no conjunctival injection noted Neck: Soft, supple, trachea midline Cardiovascular: Regular rate and rhythm no murmurs gallops rubs noted Res (more content not included)... Normal [facility] Gallbladderon 04-16-2024 Gallbladder [facility] Imaging Services [address] [place] [address] Gallbladder MR#: [id number] Acct: [id number] Name: VIOLET CHIN Rep #: [id number] : 1965 F 58 From: Erwin Osborn MD PCP: Dr. Rico Lemus MD Status: REG ER Study: Gallbladder Date of Exam: 04/16/24 Exam# [id number] Ordering Dr: Alex Dial MD [id number] STUDY: ABDOMINAL ULTRASOUND - RIGHT UPPER QUADRANT REASON FOR VISIT: Female, 58 years old pain, nausea, fever TECHNIQUE: Ultrasound evaluation of the right upper quadrant was performed with real-time and static pope-scale imaging. TECHNICAL QUALITY: Adequate. COMPARISON: CT of the abdomen April 16, 2024 FINDINGS: Liver: The liver measures 14.5 cm. There is normal echogenicity of the liver. The bile ducts are within normal limits. There is hepatic color flow. The direction of portal flow is hepatopetal. There are multiple small cysts the largest measuring approximately 1.4 cm Gallbladder: Normal distended gallbladder. The gallbladder wall measures 2 mm. There is a negative sonographic Gonzales''s sign. There is no pericholecystic fluid. There are no gallstones. Common Bile Duct (C.B.D.): The common bile duct measures 7 mm. Pancreas: Nonvisualized due to bowel gas producing artifact. Right Kidney: Normal size of the right kidney. The right kidney measures 10.8 x 5.4 x 5.9 cm. Normal renal cortex. The right cortex measures 1.8 cm. There is no demonstrated renal mass or cyst. There is no right hydronephrosis. US/Gallbladder IMPRESSION: Multiple small hepatic cysts. No evidence for gallstones or acute cholecystitis Electronically Signed: Erwin Osborn MD at 19:46 EDT Reading Location ID and State: [facility] / [place] Tel , Service support , CC: Dr. Alex Dial MD; Dr. Rico Lemus MD Import Clerk: Signed Normal [facility] H AND P Exam - Hospitaliston 04-16-2024 H&P Exam - Hospitalist [facility] Medical Records Department [address] [place] [address] H P Exam - Hospitalist 04/16/24 1901 MR#: [id number] Acct: [id number] Name: VIOLET CHIN Rep #: [id number] : 1965 58 From: Rodney Meyer DO PCP: Dr. Rico Lemus MD Status:ADM IN Location: [facility] [id number] HPI - General General Date of Admission: 04/16/24 Date of Service: 04/16/24 Chief Complaint: Abdominal Pain and Fever. HPI Narrative VIOLET CHIN, is a 58 F with a past medical history of essential hypertension, hyperlipidemia, obesity; with BMI of 31.2 this admission, tobacco abuse, cannabis abuse, depression, history of tubal ligation and OA; with back pain due to injury who presents to [facility] ER complaining of abdominal pain and fever. Ms. Chin reports her symptoms began earlier this morning when she woke up not feeling well and noted that her pain worsened while she was at work so she decided to come in for further evaluation and treatment. She primarily complains of abdominal pain that is focused in her RUQ, 6/10 and was made worse by taking a deep breath. She also admits to facial flushing, nausea, chills, SOB and feeling like something is stuck in her intestines that she cannot mobilize. She denies a personal or family history of cancer or nonmalignant lipomatous masses and she states she has never underwent an upper or lower endoscopy. There is no report of weight loss, blood in stools or similar previous episodes. I also spoke to her who was present at the bedside and answered his questions to the best of my ability. In the ER she was noted to have a CT scan of the abdomen and pelvis that revealed an Endoluminal Fatty Polypoid Lesion in the descending Duodenum without evidence of obstruction but with appearance of air in bowel wall worrisome for evolving Pneumatosis with Fever up to 100.8 degrees Fahrenheit and Leukocytosis of 13.5K present on admission with additional CT evidence of Bilateral Adrenal Masses markedly larger on the Right with Numerous Liver Cysts complicated by laboratory evidence of Dehydration with BUN/creatinine ratio 31.8 present on admission in the setting of ongoing Tobacco Abuse and she was then admitted to the general medical floor for ongoing care for a stay that is expected to extend beyond 2 midnights. [facility] Medical History Bleeding tendency Post-menopausal Back pain due to injury High cholesterol Smoker Depression Hypertension Home Medications ???Medication ???Instructions ???Recorded ???Last Taken ???Type atorvastatin 80 mg tablet 80 mg PO QHS cholesterol 04/16/24 Unknown History bupropion HCl 150 mg tablet,12 hr 150 mg PO BID 04/16/24 Unknown History sustained-release lisinopril 10 1 tab PO DAILY 04/16/24 Unknown History mg-hydrochlorothiazide 12.5 mg tablet sertraline 100 mg tablet 100 mg PO DAILY 04/16/24 Unknown History Allergy/AdvReac Type Severity Reaction Status Date / Time [facility] Allergy Abd Verified 01/06/24 17:00 cramps/diarrhea Surgical History S/P tubal ligation Social History Smoking Status: Current every day smoker tobacco type: cigarettes ROS ROS Narrative Review of Systems: Constitutional: Patient admits to fever but denies chills. Eyes: Patient denies changes in vision or discharge from eyes. ENT: Patient denies runny nose, sore throat or ear pain. Resp: Patient admits to pleuritic Right-sided chest pain made worse with raking a deep breath. CV: Patient admits to chest pain with deep breathing but denies palpitations or heart racing. GI: Patient admits to 6/10 RUQ abdominal pain with a feeling something is lodged in her bowel that she cannot mobilize as per HPI. : Patient denies dysuria, hematuria or urinary frequency/urgency. MSK: Patient denies arthralgias or myalgias. Skin: Patient admits to facial redness and flushing but she denies abscess or jaundice. Psych: Patient denies symptoms of uncontrolled depression or anxiety. Neuro: Patient denies headache, paresthesias or focal neurologic weakness. Allergy: Patient denies lip swelling, tongue swelling or urticaria. Hematology: Patient denies easy bleeding or easy bruisability. Endocrinology: Patient denies polyuria, polydipsia or polyphagia. 14 point ROS otherwise negative except positives noted above in HPI. Vital Signs Vital Signs Vital Signs: 04/16/24 12:23 04/16/24 14:23 04/16/24 15:54 Temperature 98 F 100.8 F H Temperature Source Temporal Oral Pulse Rate 86 90 86 Respiratory Rate 14 23 H 28 H Blood Pressure 187/93 H 165/124 H 159/76 H Blood Pressure Mean 124 137 103 Puls (more content not included)... Normal [facility] L501.4020on 04-16-2024 TROPONIN-I HS 5 pg/mL Normal 3.0-54.0 [facility] Comment on above: Order Comment: 'TROP ' Serial specimen #1, #2 or #3: 1 Result Comment: Plea se Note: New Test Units and Gender Specific Reference Ranges. For more information see Policy Stat Procedure Protivin High Sensitivity Troponin (TNIH) and attachments. Performed By: #### P SUIV #### [facility] [address] [place], [address] Lipaseon 04-16-2024 Lipase [Catalytic activity/Vol] 30 U/L Normal 13-75 [facility] Comment on above: Order Comment: 'TROP ' Serial specimen #1, #2 or #3: 1 Result Comment: Plea se note: LIPASE revised reference range effective 22. New Lipase methodology. Expected to produce lower values than the previous assay method. NEW Reference Range: 13 - 75 U/L Performed By: #### P SUIV #### [facility] [address] [place], [address] M100.678on 04-16-2024 M100.678 Pending SARS-CoV-2 (COVID 19) Negative INFLUENZA A Negative INFLUENZA B Negative RSV PCR Negative Normal [facility] Comment on above: Performed By: #### L 501.2300, L500.2500, L501.5200 #### [facility] [address] [place], [address] Urinalysis, Completeon 04-16 WBC 0-5 SEEN Normal 0-5 [facility] Comment on above: Order Comment: CLEAN CATCH Performed By: #### P SUIV #### [facility] [address] [place], [address] BILIRUBIN URINE Negative Normal Negative [facility] Comment on above: Order Comment: CLEAN CATCH Performed By: #### P SUIV #### [facility] [address] [place], [address] Clarity (U) Clear Normal Clear [facility] Comment on above: Order Comment: CLEAN CATCH Performed By: #### P SUIV #### [facility] [address] [place], [address] Color (U) Straw Normal Yellow [facility] Comment on above: Order Comment: CLEAN CATCH Performed By: #### P SUIV #### [facility] [address] [place], [address] GLUCOSE, UR Normal Normal Normal [facility] Comment on above: Order Comment: CLEAN CATCH Performed By: #### P SUIV #### [facility] [address] [place], [address] KETONE UR 15 mg/dl Abnormal Negative [facility] Comment on above: Order Comment: CLEAN CATCH Performed By: #### P SUIV #### [facility] [address] [place], [address] LEUK ESTERASE 100 /ul Abnormal Negative [facility] Comment on above: Order Comment: CLEAN CATCH Performed By: #### P SUIV #### [facility] [address] [place], [address] Nitrite Ql (U) Negative Normal Negative [facility] Comment on above: Order Comment: CLEAN CATCH Performed By: #### P SUIV #### [facility] [address] [place], [address] OCCULT BLOOD-UR 25 /ul Abnormal Negative [facility] Comment on above: Order Comment: CLEAN CATCH Performed By: #### P SUIV #### [facility] [address] [place], [address] pH UR 7.0 Normal 5.0 - 8.0 [facility] Comment on above: Order Comment: CLEAN CATCH Performed By: #### P SUIV #### [facility] [address] [place], [address] PROT DIPSTX Negative Normal Negative [facility] Comment on above: Order Comment: CLEAN CATCH Performed By: #### P SUIV #### [facility] [address] [place], [address] SP.GR. DIPSTX 1.010 Normal 1.002-1.030 [facility] Comment on above: Order Comment: CLEAN CATCH Performed By: #### P SUIV #### [facility] [address] [place], [address] UROBILI Normal Normal Normal [facility] Comment on above: Order Comment: CLEAN CATCH Performed By: #### P SUIV #### [facility] [address] [place], [address] BACTERIA 0 SEEN Normal None Seen [facility] Comment on above: Order Comment: CLEAN CATCH Performed By: #### P SUIV #### [facility] [address] [place], [address] EPI,SQUAMOUS 0 SEEN Normal 5-10 [facility] Comment on above: Order Comment: CLEAN CATCH Performed By: #### P SUIV #### [facility] [address] [place], [place], [address] Mucus Ql (Urine sed) 0 SEEN Normal [facility] Comment on above: Order Comment: CLEAN CATCH Performed By: #### P SUIV #### [facility] [address] [place], [address] RBC 0 SEEN Normal 0-5 [facility] Comment on above: Order Comment: CLEAN CATCH Performed By: #### P SUIV #### [facility] [address] [place], [place], [address] Vital Signs Date Time Vital Sign Value Performing Clinician Robert velasco 01-24-2025 14:29-0400 Body height 160.[address] Rico Lemus MD Work Phone: [facility] 12-31-2024 15:55-0400 Body height 162.6 cm Nina Lerner MD Work Phone: [facility] 12-31-2024 15:55-0400 Body mass index (BMI) [Ratio] 34.43 kg/m2 Nina Lerner MD Work Phone: [facility] 12-31-2024 15:55-0400 Body weight 90.99 kg Nina Lerner MD Work Phone: [facility] 12-31-2024 15:55-0400 Diastolic blood pressure 84 mm[Hg] Nina Lerner MD Work Phone: [facility] 12-31-2024 15:55-0400 Heart rate 71 /min Nina Lerner MD Work Phone: [facility] 12-31-2024 15:55-0400 Respiratory rate 19 /min Nina Lerner MD Work Phone: [facility] 12-31-2024 15:55-0400 SaO2% (BldA) [Mass fraction] 98 % Nina Lerner MD Work Phone: [facility] 12-31-2024 15:55-0400 Systolic blood pressure 138 mm[Hg] Nina Lerner MD Work Phone: [facility] 11-08-2024 14:31-0400 Body height 162.6 cm Pacc 1 Work Phone: [facility] 11-08-2024 14:31-0400 Body mass index (BMI) [Ratio] 32.61 kg/m2 Pacc 1 Work Phone: [facility] 11-08-2024 14:31-0400 Body temperature 97 [degF] Pacc 1 Work Phone: [facility] 11-08-2024 14:31-0400 Body weight 86.18 kg Pacc 1 Work Phone: [facility] 11-08-2024 14:31-0400 Diastolic blood pressure 84 mm[Hg] Pacc 1 Work Phone: [facility] 11-08-2024 14:31-0400 Heart rate 81 /min Pacc 1 Work Phone: [facility] 11-08-2024 14:31-0400 Respiratory rate 14 /min Pacc 1 Work Phone: [facility] 11-08-2024 14:31-0400 SaO2% (BldA) [Mass fraction] 97 % Pacc 1 Work Phone: [facility] 11-08-2024 14:31-0400 Systolic blood pressure 140 mm[Hg] Pacc 1 Work Phone: [facility] 11-05-2024 08:57-0400 Body height 157.5 cm John Bradley MD Work Phone: [facility] 11-05-2024 08:57-0400 Body mass index (BMI) [Ratio] 34.71 kg/m2 John Bradley MD Work Phone: [facility] 11-05-2024 08:57-0400 Body weight 86.1 kg John Bradley MD Work Phone: [facility] 11-05-2024 08:57-0400 Diastolic blood pressure 88 mm[Hg] John Bradley MD Work Phone: [facility] 11-05-2024 08:57-0400 Heart rate 65 /min John Bradley MD Work Phone: [facility] 11-05-2024 08:57-0400 Systolic blood pressure 165 mm[Hg] John Bradley MD Work Phone: [facility] 10-29-2024 15:58-0400 Body mass index (BMI) [Ratio] 34.82 kg/m2 Nina Lerner MD Work Phone: [facility] 10-29-2024 15:58-0400 Body temperature 98.8 [degF] Nina Lerner MD Work Phone: [facility] 10-29-2024 15:58-0400 Body weight 86.36 kg Nina Lerner MD Work Phone: [facility] 10-29-2024 15:58-0400 Heart rate 64 /min Nina Lerner MD Work Phone: [facility] 10-29-2024 15:58-0400 SaO2% (BldA) [Mass fraction] 97 % Nina Lerner MD Work Phone: [facility] 06-28-2024 08:13-0500 Body height 157.5 cm Nina Lerner MD Work Phone: [facility] 06-28-2024 08:13-0500 Body mass index (BMI) [Ratio] 33.32 kg/m2 Nina Lerner MD Work Phone: [facility] 06-28-2024 08:13-0500 Body weight 82.64 kg Nina Lerner MD Work Phone: [facility] 06-28-2024 08:13-0500 Diastolic blood pressure 92 mm[Hg] Nina Lerner MD Work Phone: [facility] 06-28-2024 08:13-0500 Heart rate 63 /min Nina Lerner MD Work Phone: [facility] 06-28-2024 08:13-0500 Respiratory rate 20 /min Nina Lerner MD Work Phone: [facility] 06-28-2024 08:13-0500 SaO2% (BldA) [Mass fraction] 98 % Nina Lerner MD Work Phone: [facility] 06-28-2024 08:13-0500 Systolic blood pressure 158 mm[Hg] Nina Lerner MD Work Phone: [facility] 05-15-2024 15:02-0400 Body mass index (BMI) [Ratio] 31.96 kg/m2 [employer] Work Phone: [facility] 05-15-2024 15:02-0400 Body weight 81.2 kg Aissatou [employer] Work Phone: [facility] 05-15-2024 15:02-0400 Diastolic blood pressure 80 mm[Hg] [employer]issatou [employer] Work Phone: [facility] 05-15-2024 15:02-0400 Heart rate 54 /min Aissatou [employer] Work Phone: [facility] 05-15-2024 15:02-0400 Respiratory rate 18 /min Aissatou [employer] Work Phone: [facility] 05-15-2024 15:02-0400 SaO2% (BldA) [Mass fraction] 98 % Aissatou [employer]ar [employer] Work Phone: [facility] 05-15-2024 15:02-0400 Systolic blood pressure 138 mm[Hg] Aissatou Mac [employer] Work Phone: [facility] 01-17-2024 17:37-0400 Body mass index (BMI) [Ratio] 31.85 kg/m2 Drew Galvan MD Work Phone: [facility] 01-17-2024 17:37-0400 Body temperature 98.4 [degF] Drew Galvan MD Work Phone: [facility] 01-17-2024 17:37-0400 Body weight 80.9 kg Drew Galvan MD Work Phone: [facility] 01-17-2024 17:37-0400 Diastolic blood pressure 78 mm[Hg] Drew Galvan MD Work Phone: [facility] 01-17-2024 17:37-0400 Heart rate 65 /min Drew Galvan MD Work Phone: [facility] 01-17-2024 17:37-0400 Respiratory rate 18 /min Drew Galvan MD Work Phone: [facility] 01-17-2024 17:37-0400 SaO2% (BldA) [Mass fraction] 96 % Drew Galvan MD Work Phone: [facility] 01-17-2024 17:37-0400 Systolic blood pressure 112 mm[Hg] Drew Galvan MD Work Phone: [facility] 11-14-2023 18:37-0400 Body weight 84.73 kg Erick Lemus MD Work Phone: [facility] 11-14-2023 18:37-0400 Diastolic blood pressure 74 mm[Hg] Erick Lemus MD Work Phone: [facility] 11-14-2023 18:37-0400 Heart rate 73 /min Erick Lemus MD Work Phone: [facility] 11-14-2023 18:37-0400 Respiratory rate 16 /min Erick Lemus MD Work Phone: [facility] 11-14-2023 18:37-0400 SaO2% (BldA) [Mass fraction] 96 % Erick Lemus MD Work Phone: [facility] 11-14-2023 18:37-0400 Systolic blood pressure 118 mm[Hg] Erick Lemus MD Work Phone: [facility] 04-13-2023 13:09-0400 Body weight 93.71 kg Erick Lemus MD Work Phone: [facility] 04-13-2023 13:09-0400 Diastolic blood pressure 78 mm[Hg] Erick Lemus MD Work Phone: [facility] 04-13-2023 13:09-0400 Heart rate 73 /min Erick Lemus MD Work Phone: [facility] 04-13-2023 13:09-0400 Respiratory rate 16 /min Erick Lemus MD Work Phone: [facility] 04-13-2023 13:09-0400 SaO2% (BldA) [Mass fraction] 96 % Erick Lemus MD Work Phone: [facility] 04-13-2023 13:09-0400 Systolic blood pressure 118 mm[Hg] Erick Lemus MD Work Phone: [facility] Encounters Encounter Date Encounter Type Care Provider Facility Start: 02-11-2025 End: 02-11-2025 ambulatory NINA ARAGON [facility] Facility:[facility] Start: 01-30-2025 End: 01-30-2025 Subsequent hospital visit by physician [employer] [facility] Work Phone: CT Scan Comment on above: Arrived Adrenal mass (HCC) [ E27.8] Start: 01-27-2025 End: 01-27-2025 Patient encounter procedure [facility] Work Phone: Start: 01-27-2025 End: 01-27-[address] Rico Lemus MD Work Phone: [facility] Work Phone: Start: 01-09-2025 End: 01-09-2025 ambulatory ERICK LEMUS Facility:[facility] Start: 01-07-2025 End: 01-07-2025 Patient encounter procedure Mouna Hirsch MS Work Phone: [facility] Comment on above: Pheochromocytoma of right adrenal gland (Primary Dx) Start: 01-07-2025 End: 01-07-2025 Telemedicine consultation with patient Mouna Hirsch MS Work Phone: [employer] Start: 01-07-2025 End: 01-07-2025 ambulatory ERICK LEMUS Facility:[facility] Start: 12-31-2024 End: 12-31-2024 Patient encounter procedure Nina Lerner MD Work Phone: Endocrinology Comment on above: Mass of both adrenal glands (HCC) (Primary Dx) Start: 12-31-2024 End: 12-31-2024 ambulatory NINA LERNER Facility:[facility] Start: 12-18-2024 End: 12-18-2024 Follow-up encounter Erick Lemus MD Work Phone: [facility] Comment on above: Results Start: 12-18-2024 ambulatory ERICK LEMUS Facility:[facility] Start: 12-18-2024 End: 12-18-2024 Subsequent hospital visit by physician Diagnostic Mammo [facility] Mammogram Comment on above: Abnormal mammogram [ R92.8] Start: 12-05-2024 End: 12-05-2024 Admission to same day surgery center John Bradley MD Work Phone: Endocrine Surgery Comment on above: Pheochromocytoma of right adrenal gland (Primary Dx) Start: 12-05-2024 End: 12-05-2024 Telemedicine consultation with patient John Bradley MD Work Phone: Endocrine Surgery Start: 12-04-2024 End: 02-03-2025 Follow-up encounter John Bradley MD Work Phone: Endocrine Surgery Start: 12-04-2024 End: 12-04-2024 Telephone encounter John Bradley MD Work Phone: Endocrine Surgery Comment on above: Nm Pet Request Start: 11-29-2024 End: 11-29-2024 ambulatory ERICK LEMUS Facility:[facility] Start: 11-28-2024 End: 01-28-2025 Follow-up encounter John Bradley MD Work Phone: MM Provider Adult Start: 11-22-2024 End: 11-22-2024 Telephone encounter John Bradley MD Work Phone: Endocrine Surgery Comment on above: Follow Up Phone Call Start: 11-20-2024 End: 11-21-2024 Evaluation and management of inpatient ERICK LEMUS Facility:[facility] Start: 11-15-2024 End: 11-15-2024 Patient encounter procedure Pulm Lab [facility] Work Phone: PULM LAB [facility] Start: 11-15-2024 End: 11-15-2024 Preprocedural examination done [facility] Work Phone: [facility] Start: 11-15-2024 End: 11-15-2024 ambulatory Pul[facility] Work Phone: PULM LAB [facility] Comment on above: Spirometry Start: 11-15-2024 End: 11-15-2024 Subsequent hospital visit by physician Ct [facility] (I-Stat) Work Phone: Cat Scan Comment on above: 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] Start: 11-13-2024 End: 11-13-2024 Admission to same day surgery center John Bradley MD Work Phone: Endocrine Surgery Comment on above: RE: Reminder for upc oming surgery Start: 11-13-2024 End: 11-13-2024 E-mail encounter from caregiver John Bradley MD Work Phone: Endocrine Surgery Start: 11-08-2024 Encounter for other preprocedural examination ERICK LEMUS [facility] Start: 11-08-2024 End: 11-08-2024 Subsequent hospital visit by physician Awa Bertrand [facility] Work Phone: Radiology Comment on above: Adrenal mass (HCC) [ E27.8] Start: 11-08-2024 End: 11-08-2024 Admission to establishment [facility] 1 Work Phone: Pre Anesthesia Start: 11-08-2024 End: 11-08-2024 ambulatory GURVINDER GARCIA Facility:[facility] Start: 11-08-2024 End: 11-08-2024 Anesthesia consultation [facility] Work Phone: Pre Anesthesia Comment on above: Pre-operative examin ation (Primary Dx); Adrenal mass (HCC); Essential hypertension; Mixed hyperlipidemia; Smoker; Anxiety with depression; Marijuana use; Obesity, Class I, BMI 30-34.9; Prediabetes; Liver cyst; Polypoid adenoma Start: 11-08-2024 End: 11-08-2024 Preprocedural examination done [facility] 1 Work Phone: [facility] Start: 11-08-2024 End: 11-08-2024 ambulatory JOHN BRADLEY Facility:[facility] Start: 11-05-2024 End: 11-05-2024 Admission to same day surgery center John Bradley MD Work Phone: Endocrine Surgery Comment on above: 11/20/[id number] l aprascopic adrenalectomy (Right laprascopic adrenalectomy) Start: 11-05-2024 End: 11-05-2024 Patient encounter procedure John Bradley MD Work Phone: Endocrine Surgery Comment on above: Adrenal nodule (HCC) (Primary Dx); Obesity, Class I, BMI 30-34.9 Start: 11-05-2024 End: 11-05-2024 ambulatory John Bradley MD Work Phone: Endocrine Surgery Start: 10-31-2024 End: 10-31-2024 Telephone encounter John Bradley MD Work Phone: Endocrine Surgery Comment on above: Consult (FACE SHEET) Start: 10-29-2024 End: 10-29-2024 ambulatory ERICK LEMUS Facility:[facility] Start: 10-29-2024 End: 10-29-2024 Patient encounter procedure Nina Lerner MD Work Phone: Endocrinology Comment on above: Adrenal nodule (HCC) (Primary Dx) Start: 10-28-2024 End: 10-28-2024 ambulatory ERICK LEMUS Facility:[facility] Start: 10-25-2024 End: 10-25-2024 ambulatory ERICK LEMUS Facility:[facility] Start: 10-19-2024 End: 10-22-2024 ambulatory Erick Lemus MD Work Phone: [facility] [place] Comment on above: Anxiety Start: 10-17-2024 End: 10-18-2024 Follow-up encounter Erick Lemus MD Work Phone: [facility] [place] Start: 10-16-2024 End: 10-16-2024 Telephone encounter Nina Lerner MD Work Phone: Endocrinology Start: 10-14-2024 End: 10-14-2024 Subsequent hospital visit by physician [facility] (I-Stat) Work Phone: Cat Scan Comment on above: 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] Start: 10-14-2024 End: 10-14-2024 ambulatory Erick Lemus MD Work Phone: [facility] [place] Comment on above: Diagnostic Mammogram Start: 10-14-2024 End: 10-14-2024 Telephone encounter Casie Weiss MD Work Phone: Mammography Comment on above: Mammogram Result Lazaro l Back Orders (Lab orders n eeded) Start: 10-11-2024 End: 10-11-2024 Follow-up encounter Erick Lemus MD Work Phone: [facility] [place] Comment on above: Abnormal mammogram ( Primary Dx) Start: 10-11-2024 End: 10-11-2024 ambulatory ERICK LEMUS Facility:[facility] Start: 10-11-2024 End: 10-11-2024 Subsequent hospital visit by physician Screen Mammo [facility] Comment on above: Encounter for screen ing mammogram for breast cancer [Z12.31] Start: 07-08-2024 End: 07-08-2024 ambulatory EIRCK LEMUS Facility:[facility] Start: 07-01-2024 End: 07-01-2024 Refill Erick Lemus MD Work Phone: [facility] [place] Comment on above: Refill Request Start: 06-28-2024 End: 06-28-2024 Refill Erick Lemus MD Work Phone: [facility] [place] Comment on above: Refill Request Mass of both adrenal glands (HCC) (Primary Dx); Hospital discharge follow-up; Adrenal mass 1 cm to 4 cm in diameter (HCC); Disorder of adrenal gland (HCC) Start: 05-28-2024 End: 2024 Telephone encounter Erick Lemus MD Work Phone: [facility] [place] Comment on above: Appointment (Provide r out 05/28/24 due to illness attempted to contact patient to reschedule appt) Start: 05-15-2024 End: 05-15-2024 Patient encounter procedure Aissatou Mac APRN.LAND PLANNER Work Phone: [facility] [place] Comment on above: Hospital discharge f ollow-up (Primary Dx); Mass of both adrenal glands (HCC); Mixed hyperlipidemia; Elevated blood sugar; Adrenal mass 1 cm to 4 cm in diameter (HCC); Hypokalemia Start: 05-15-2024 End: 05-15-2024 ambulatory ERICK LEMUS Facility:[facility] Start: 04-16-2024 ambulatory Rodney Waters ty:[facility] Start: 04-16-2024 End: 04-18-2024 Evaluation and management of inpatient Kostas Coffman Facility:[facility] Start: 01-17-2024 End: 01-17-2024 Office outpatient visit 15 minutes Drew Galvan MD Work Phone: [facility] Comment on above: Laceration of left k nee, subsequent encounter (Primary Dx) Start: 01-17-2024 ambulatory Erick Lemus MD Work Phone: [facility] [place] Start: 01-08-2024 End: 2024 Telephone encounter [facility] Comment on above: Appointment Start: 11-14-2023 End: 11-14-2023 Patient encounter procedure Erick Lemus MD Work Phone: [facility] Comment on above: Anxiety with depress ion (Primary Dx); Essential hypertension; Mixed hyperlipidemia; Obesity (BMI 30-39.9); Tobacco use Start: 10-24-2023 Refill Erick Lemus MD Work Phone: [facility] Comment on above: Refill Request Start: 09-18-2023 ambulatory Erick Lemus MD Work Phone: [facility] Comment on above: Colorectal Screening Start: 09-16-2023 Refill Aissatou Mac APRN.CNP Work Phone: [facility] [place] Comment on above: Refill Request Start: 07-16-2023 Refill Erick Lemus MD Work Phone: [facility] [place] Comment on above: Refill Request Start: 06-19-2023 Refill Erick Lemus MD Work Phone: [facility] [place] Comment on above: Refill Request Start: 06-16-2023 Refill Erick Lemus MD Work Phone: [facility] [place] Comment on above: Refill Request Start: 04-13-2023 End: 04-13-2023 Patient encounter procedure Erick Lemus MD Work Phone: [facility] [place] Comment on above: Annual physical exam (Primary Dx); Anxiety with depression; Essential hypertension; Mixed hyperlipidemia; Obesity (BMI 30-39.9); Tobacco use; Screening for colon cancer; Screening for cervical cancer; Bruising Start: 02-08-2023 ambulatory Erick Lemus MD Work Phone: [facility] [place] Comment on above: No longer insured Start: 03-16-2022 Telephone encounter Aissatou giles RECORD PRODUCER[employer]LAND [employer]NER Work Phone: Gastroenterology Comment on above: CANCELLED ORDER Start: 02-09-2022 ambulatory Erick Lemus MD Work Phone: [facility] [place] Procedures Date Procedure Procedure Detail Performing Clinician Start: 01-30-[address] atten uation skull base mid-thigh John Bradley MD Work Phone: Start: 12-18-2024 End: 12-18-2024 Us breast uni real time with image limited Erick Lemus MD Work Phone: Start: 12-18-2024 Digital breast tomos ynthesis bilateral Erick Lemus MD Work Phone: Start: 11-15-2024 Brncdilat rspse spmt ry pre&post-brncdilat admn Gurvinder Garcia RECORD PRODUCER[employer] Work Phone: Start: 11-08-2024 Radiologic exam ches t 2 views Gurvinder Garcia RECORD PRODUCER[employer]LAND PL[employer]NER Work Phone: Start: 11-08-2024 Antibody screen DAYO LEMUS Comment on above: Order Comment: Speci men Type: BLOOD SPECIMENOrdering Facility: [facility] Address: [address] [place] [address] Performed By: #### T [id number] ####CC MAIN BLOOD BANKCLIA [id number] [facility] [id number] [place] [address] [place] Start: 10-14-2024 Ct abdomen w/o & w/c ontrast material Nina Lerner MD Work Phone: Start: 10-14-2024 Lipid 1996 panel - S rachel or Plasma Ct (I-Stat) Work Phone: Start: 10-11-2024 Screening digital br east tomosynthesis bi Bulk Order Provider Start: 02-04-2021 Lipid 1996 panel - S rachel or Plasma Erick Lemus MD Work Phone: Plan of Treatment Date Care Activity Detail Author Start: 01-05-2034 Urine microalbumin profile DTaP,Tdap,Td Vaccine (3 - Td or Tdap) [facility] Start: 10-14-2029 Lipid panel Lipid Screening [facility] Start: 03-15-2029 Urine microalbumin profile [facility] Start: 11-22-2027 Diabetes Screening Diabetes Screening [facility] Start: 11-09-2027 Diabetes Screening Diabetes Screening [facility] Start: 10-15-2027 Diabetes Screening Diabetes Screening [facility] Start: 02-04-2026 Lipid 1996 panel - Serum or Plasma Lipid Screening [facility] Start: 02-04-2026 Lipid panel Lipid Screening [facility] Start: 02-04-2026 LIPID SCREEN LIPID SCREEN [facility] Start: 12-18-2025 Screening for malignant neoplasm of breast Mammogram Screening [facility] Start: 11-15-2025 Screening for malignant neoplasm of lung Lung Cancer Screening [facility] Start: 10-11-2025 Screening for malignant neoplasm of breast Mammogram Screening [facility] Start: 06-20-2025 End: 01-17-2026 MG Breast - bilateral Diagnostic MAYITO DIAGNOSTIC BILATERAL Radiology Routine Abnormal mammogram Expected: 06/20/2025, Expires: 01/17/2026 [facility] Work Phone: Comment on above: Expected: 06/20/2025, Expires: Start: 06-20-2025 End: 01-17-2026 US Breast - left limited US BREAST LTD LEFT Radiology Routine Abnormal mammogram Expected: 06/20/2025, Expires: 01/17/2026 [facility] Comment on above: Expected: 06/20/2025, Expires: Start: 06-20-2025 End: 01-17-2026 US Breast - right limited US BREAST LTD RIGHT Radiology Routine Abnormal mammogram Expected: 06/20/2025, Expires: 01/17/2026 [facility] Comment on above: Expected: 06/20/2025, Expires: Start: 05-15-2025 Annual PCP Team Chronic Disease Visit Annual PCP Team Chronic Disease Visit [facility] Start: 04-07-2025 Influenza vaccination Influenza Vaccine (Season Ended) [facility] Start: 03-03-2025 End: 03-03-2025 Patient encounter procedure 03/03/2025 7:00 AM EDT Office Visit [facility] [place] [address] [place] [address] Erick Lemus MD [address] [place] [address] Weight loss Medication Refills [facility] [place] Comment on above: Weight loss Medication Refills Start: 02-11-2025 End: 02-11-2025 Patient encounter procedure 02/11/2025 11:00 AM EDT Office Visit Endocrinology [address] [place] [address] Nina Lerner MD [address] [place] [address] s/p adrenalectomy 6 WEEK F/U Endocrinology Comment on above: s/p adrenalectomy 6 WEEK F/U Start: 01-30-2025 End: 01-30-[address] Scan Comment on above: Adrenal mass (HCC) [E27.8]; 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]; Adrenal nodule (HCC) [E27.9] Start: 01-22-2025 End: 01-22-[address] Scan Comment on above: Adrenal mass (HCC) [E27.8]; 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]; Adrenal nodule (HCC) [E27.9] Start: 01-16-2025 BP Controlled (<130/80) BP Controlled (<130/80) [facility] Start: 01-09-2025 End: 01-09-2025 ambulatory 01/09/2025 8:30 AM EDT Results Only [place] [facility] Draw Station [address] [place] [address] [place] [facility] Station Start: 01-09-2025 End: 01-09-2025 Patient encounter procedure 01/09/2025 7:00 AM EDT Office Visit [facility] [place] [address] [place] [address] Erick Lemus MD [address] [place] [address] annual physical/vaccines & screenings (see 10/07/24 Zura!t message) [facility] [place] Comment on above: annual physical/vaccines & screenings (s ee 10/07/24 Zura!t message) Start: 01-07-2025 End: 04-08-2025 NV[facility] INVITAE HEREDITARY DIAGNOSTIC CANCER PANEL [facility] IN[facility]AE HEREDITARY DIAGNOSTIC CANCER PANEL Lab Routine Pheochromocytoma of right adrenal gland Expected: 01/07/2025, Expires: 04/08/2025 [facility] Work Phone: Comment on above: Expected: 01/07/2025, Expires: Start: 01-07-2025 End: 01-07-2025 Patient encounter procedure 01/07/2025 11:00 AM EDT [facility] [address] [place] [address] Mouna Hirsch, MS [facility] [address] [place] [address] 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] [facility] Comment on above: 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] Start: 12-31-2024 End: 12-31-2024 Patient encounter procedure 12/31/2024 4:00 PM EDT Office Visit Endocrinology [address] [place] [address] Nina Lerner MD [address] [place] [address] 2 MTH F/U Endocrinology Comment on above: 2 MTH F/U Start: 12-18-2024 End: 12-18-2024 Patient encounter procedure Mammogram Comment on above: Comp-MAYITO DIAGNOSTIC BILAT CB PER CP US BREAST LTD RIGHT CB PER CP Start: 12-16-2024 End: 12-16-2024 Patient encounter procedure 12/16/2024 2:30 PM EDT Appointment Molecular Imaging [address] [place] [address] Adrenal mass (HCC) [E27.8]; 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]; Adrenal nodule (HCC) [E27.9] Molecular Imaging Comment on above: Adrenal mass (HCC) [E27.8]; 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]; Adrenal nodule (HCC) [E27.9] Start: 12-16-2024 End: 12-16-2024 Patient encounter procedure 12/16/2024 11:30 AM EDT Appointment Molecular Imaging [address] [place], [place] [id number] Adrenal mass (HCC) [E27.8]; 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]; Adrenal nodule (HCC) [E27.9] Molecular Imaging Comment on above: Adrenal mass (HCC) [E27.8]; 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]; Adrenal nodule (HCC) [E27.9] Start: 12-10-2024 End: 12-10-2024 Patient encounter procedure Mammogram Comment on above: MAYITO DIAGNOSTIC BILAT CB PER CP US BREAST LTD RIGHT CB PER CP Start: 12-05-2024 End: 12-05-2024 Admission to same day surgery center 12/05/2024 3:00 PM EDT [facility] Endocrine Surgery [address] [place] [address] John Bradley MD [address] [place] [address] POST OP Endocrine Surgery Comment on above: POST OP Start: 11-26-2024 End: 11-26-2024 Patient encounter procedure 11/26/2024 9:20 AM EDT Office Visit Endocrinology [address] [place] [address] Nina Lerner MD [address] [place] [address] 6 wk f/u (soonest, should be 08/23/24) Endocrinology Comment on above: 6 wk f/u (soonest, should be 08/23/24) Start: 11-20-2024 End: 11-20-2024 Admission to same day surgery center 11/20/2024 12:41 PM EDT - 11/20/2024 4:41 PM EDT Surgery Admitting [address] [place] [address] John Bradley MD [address] [place] [address] LAPAROSCOPIC ADRENALECTOMY Admitting Comment on above: LAPAROSCOPIC ADRENALECTOMY Start: 11-20-2024 End: 11-20-2024 Laparoscopy adrenalectomy prtl/compl tabdl LAPAROSCOPIC ADRENALECTOMY Adrenal mass (HCC) 11/20/2024 12:41 PM EDT [facility] Start: 11-20-2024 Subsequent hospital visit by physician Admitting Comment on above: Adrenal mass (HCC) [E27.8] Start: 11-15-2024 End: 11-15-2024 ambulatory 11/15/2024 2:00 PM EDT Procedure PULM LAB [facility] [address] [place] [address] W[facility], Pulm Lab [facility] [address] [place] [address] Dx: Pre-operative examination [Z01.818] PULM LAB [facility] Comment on above: Dx: Pre-operative examination [Z01.818] Start: 11-15-2024 End: 11-15-2024 Patient encounter procedure 11/15/2024 1:00 PM EDT Appointment Cat Scan [address] [place] [address] 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] Cat Scan Comment on above: 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] Start: 11-13-2024 Annual PCP Team Chronic Disease Visit Annual PCP Team Chronic Disease Visit [facility] Start: 11-13-2024 BP Controlled (<130/80) BP Controlled (<130/80) [facility] Start: 11-08-2024 End: 12-08-2025 SPIROMETRY WITH DILATOR IF OBSTRUCTED SPIROMETRY WITH DILATOR IF OBSTRUCTED PFT Routine Pre-operative examination Expected: 11/08/2024, Expires: 12/08/2025 [facility] Work Phone: Comment on above: Expected: 11/08/2024, Expires: Start: 11-05-2024 End: 02-04-2025 Basic metabolic 2000 panel - Serum or Plasma BASIC METABOLIC PANEL Lab Routine Adrenal mass (HCC) Expected: 11/05/2024, Expires: 02/04/2025 [facility] Work Phone: Comment on above: Expected: 11/05/2024, Expires: Start: 11-05-2024 End: 02-04-2025 CBC W Auto Differential panel - Blood COMPLETE BLOOD COUNT AND DIFFERENTIAL Lab Routine Adrenal mass (HCC) Expected: 11/05/2024, Expires: 02/04/2025 [facility] Comment on above: Expected: 11/05/2024, Expires: Start: 11-05-2024 End: 02-04-2025 CONFIRM BLOOD TYPE CONFIRM BLOOD TYPE Blood Bank Routine Adrenal mass (HCC) Expected: 11/05/2024 (Approximate), Expires: 02/04/2025 [facility] Comment on above: Expected: 11/05/2024 (Approximate), Expi res: 02/04/2025 Start: 11-05-2024 End: 02-04-2025 TYPE AND SCREEN,30 DAY TYPE AND SCREEN,30 DAY Blood Bank Routine Adrenal mass (HCC) Expected: 11/05/2024, Expires: 02/04/2025 [facility] Comment on above: Expected: 11/05/2024, Expires: Start: 11-05-2024 End: 11-05-2024 Patient encounter procedure 11/05/2024 9:00 AM EDT Office Visit Endocrine Surgery [address] [place] [address] John Bradley MD [address] [place] [address] INTAKE PENDING--Adrenal nodule (HCC) [E27.9] Endocrine Surgery Comment on above: INTAKE PENDING--Adrenal nodule (HCC) [E2 7.9] Start: 10-29-2024 End: 10-29-2024 Patient encounter procedure 10/29/2024 4:00 PM EDT Office Visit Endocrinology [address] [place] [address] Nina Lerner MD [address] [place] [address] 6 wk f/u *review CT 10/22/24 Endocrinology Comment on above: 6 wk f/u *review CT 10/22/24 Start: 10-14-2024 End: 10-14-2024 ambulatory 10/14/2024 4:30 PM EDT Results Only [place] [facility] Laboratory [address] [place] [address] [place] [facility] Start: 10-14-2024 End: 10-14-2024 Patient encounter procedure 10/14/2024 3:00 PM EDT Appointment Cat Scan [address] [place] [address] 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] Cat Scan Comment on above: 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] Start: 10-14-2024 Subsequent hospital visit by physician 10/14/2024 2:51 PM EDT Hospital Encounter Cat Scan [address] [place] [address] 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] Cat Scan Comment on above: 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] Start: 10-14-2024 End: 01-13-2025 Hemoglobin A1c in Blood [facility] Work Phone: Comment on above: Expected: 10/14/2024, Expires: Start: 10-14-2024 End: 01-13-2025 LIPID PANEL, NONFASTING [facility] Comment on above: Expected: 10/14/2024, Expires: Start: 09-24-2024 End: 09-24-2024 Patient encounter procedure 09/24/2024 2:20 PM EST Office Visit Endocrinology [address] [place] [address] Nina Lerner MD [address] [place] [address] 6 wk f/u (soonest, should be 08/08/24) Endocrinology Comment on above: 6 wk f/u (soonest, should be 08/08/24) Start: 07-08-2024 End: 07-08-2024 Patient encounter procedure Financial Clearance Phone Screening Comment on above: Financial Clearance 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] Start: 06-28-2024 End: 09-27-2024 ALDOSTERONE/DIRECT RENIN RATIO ALDOSTERONE/DIRECT RENIN RATIO Lab Routine Mass of both adrenal glands (HCC) Expected: 06/28/2024, Expires: 09/27/2024 [facility] Comment on above: Expected: 06/28/2024, Expires: Start: 06-28-2024 End: 09-27-2024 CATECHOLAMINES FRACTIONATED, URINE FREE CATECHOLAMINES FRACTIONATED, URINE FREE Lab Routine Mass of both adrenal glands (HCC) Expected: 06/28/2024, Expires: 09/27/2024 [facility] Comment on above: Expected: 06/28/2024, Expires: Start: 06-28-2024 End: 09-27-2024 Corticotropin [Mass/volume] in Plasma ACTH BLD Lab Routine Mass of both adrenal glands (HCC) Expected: 06/28/2024, Expires: 09/27/2024 [facility] Comment on above: Expected: 06/28/2024, Expires: Start: 06-28-2024 End: 09-27-2024 Cortisol [Mass/volume] in Serum or Plasma --post dose dexamethasone CORTISOL SUPRES POST Lab Routine Mass of both adrenal glands (HCC) Expected: 06/28/2024, Expires: 09/27/2024 [facility] Comment on above: Expected: 06/28/2024, Expires: Start: 06-28-2024 End: 09-27-2024 DEXAMETHASONE DEXAMETHASONE Lab Routine Mass of both adrenal glands (HCC) Expected: 06/28/2024, Expires: 09/27/2024 [facility] Comment on above: Expected: 06/28/2024, Expires: Start: 06-28-2024 End: 09-27-2024 DHEA-S BLD DHEA-S BLD Lab Routine Mass of both adrenal glands (HCC) Expected: 06/28/2024, Expires: 09/27/2024 [facility] Work Phone: Comment on above: Expected: 06/28/2024, Expires: Start: 06-28-2024 End: 09-27-2024 Potassium [Moles/volume] in Serum or Plasma POTASSIUM Lab Routine Mass of both adrenal glands (HCC) Expected: 06/28/2024, Expires: 09/27/2024 [facility] Comment on above: Expected: 06/28/2024, Expires: Start: 06-28-2024 End: 06-28-2024 Patient encounter procedure 06/28/2024 8:00 AM EST Office Visit Endocrinology [address] [place], [place] [id number] Nina Lerner MD [address] [place], [place] [id number] 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]; Hospital discharge follow-up [Z09]; Adrenal mass 1 cm to 4 cm in diameter (HCC) [E27.8] Endocrinology Comment on above: 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 ]; Hospital discharge follow-up [Z09]; Adrenal mass 1 cm to 4 cm in diameter (HCC) [E27.8] Start: 05-28-2024 End: 05-28-2024 Patient encounter procedure 05/28/2024 11:00 AM EDT Office Visit [facility] [address] [place], [place] [id number] Erick Lemus MD [address] [place], [place] [id number] Annual Exam [facility] Comment on above: Annual Exam Start: 05-15-2024 End: 08-14-2024 Comprehensive metabolic 2000 panel - Serum or Plasma COMPREHENSIVE METABOLIC PANEL Lab Routine Hypokalemia Expected: 05/15/2024, Expires: 08/14/2024 [facility] Comment on above: Expected: 05/15/2024, Expires: Start: 05-15-2024 End: 08-14-2024 Hemoglobin A1c in Blood HEMOGLOBIN A1C Lab Routine Elevated blood sugar Expected: 05/15/2024, Expires: 08/14/2024 [facility] Comment on above: Expected: 05/15/2024, Expires: Start: 05-15-2024 End: 08-14-2024 Lipid 1996 panel - Serum or Plasma LIPID PANEL BASIC Lab Routine Mixed hyperlipidemia Expected: 05/15/2024, Expires: 08/14/2024 [facility] Work Phone: Comment on above: Expected: 05/15/2024, Expires: Start: 04-13-2024 ANNUAL PCP TEAM CHRONIC DISEASE VISIT ANNUAL PCP TEAM CHRONIC DISEASE VISIT [facility] Start: 04-13-2024 BP CONTROLLED (<130/80) BP CONTROLLED (<130/80) [facility] Start: 04-13-2024 Covid-19 Vaccine (3 - 2023-24 season) Covid-19 Vaccine (3 - 2022-24 season) [facility] Comment on above: Postponed from 04/07/2023 (Declined at t his time) Start: 04-13-2024 COVID-19 VACCINE (3 - Pfizer series) COVID-19 VACCINE (3 - Pfizer series) [facility] Comment on above: Postponed from 06/09/2021 (Declined at t his time) Start: 04-13-2024 HEPATITIS B (1 of 3 - 3-dose series) HEPATITIS B (1 of 3 - 3-dose series) [facility] Comment on above: Postponed from 1965 (Declined at t his time) Start: 04-13-2024 Hepatitis B Vaccine (1 of 3 - 19+ 3-dose series) Hepatitis B Vaccine (1 of 3 - 19+ 3-dose series) [facility] Comment on above: Postponed from 1984 (Declined at t his time) Start: 04-13-2024 Hepatitis B Vaccine (1 of 3 - 3-dose series) Hepatitis B Vaccine (1 of 3 - 3-dose series) [facility] Comment on above: Postponed from 1965 (Declined at t his time) Start: 04-13-2024 HEPATITIS C SCREENING HEPATITIS C SCREENING [facility] Comment on above: Postponed from 1983 (Declined at t his time) Start: 04-13-2024 Hepatitis C screening Hepatitis C Screening [facility] Comment on above: Postponed from 1983 (Declined at t his time) Start: 04-13-2024 HIV SCREENING HIV SCREENING [facility] Comment on above: Postponed from 1983 (Declined at t his time) Start: 04-13-2024 HIV screening HIV Screening [facility] Comment on above: Postponed from 1983 (Declined at t his time) Start: 04-13-2024 HPV TESTING HPV TESTING [facility] Comment on above: Postponed from 1995 (Declined at t his time) Start: 04-13-2024 PAP TESTING PAP TESTING [facility] Comment on above: Postponed from 1986 (Declined at t his time) Start: 04-13-2024 PNEUMOCOCCAL (2 - PCV) PNEUMOCOCCAL (2 - PCV) [facility] Comment on above: Postponed from 03/15/2020 (Declined at t his time) Start: 04-13-2024 Pneumococcal vaccination [facility] Comment on above: Postponed from 03/15/2020 (Declined at t his time) Start: 04-13-2024 Screening for malignant neoplasm of cervix [facility] Comment on above: Postponed from 1995 (Declined at t his time) Postponed from 08/27 (Declined at this time) Start: 04-13-2024 SHINGRIX VACCINE (1 of 2) SHINGRIX VACCINE (1 of 2) [facility] Comment on above: Postponed from 2015 (Declined at t his time) Start: 04-07-2024 Covid-19 Vaccine () Covid-19 Vaccine () [facility] Start: 04-07-2024 Influenza vaccination [facility] Start: 02-05-2024 DIABETES SCREEN DIABETES SCREEN [facility] Start: 02-05-2024 Diabetes Screening Diabetes Screening [facility] Start: 02-04-2024 Influenza vaccination [facility] Comment on above: Postponed from 04/07/2023 (Declined at t his time) Start: 11-14-2023 End: 02-13-2024 Comprehensive metabolic 2000 panel - Serum or Plasma COMP METABOLIC PANEL Lab Routine Essential hypertension Expected: 11/14/2023, Expires: 02/13/2024 [facility] Work Phone: Comment on above: Expected: 11/14/2023, Expires: 4 Start: 04-13-2023 End: 06-13-2023 25-hydroxyvitamin D3 [Mass/volume] in Serum or Plasma VITAMIN D 25 HYDROXY Lab Routine Annual physical exam Anxiety with depression Expected: 04/13/2023, Expires: 06/13/2023 [facility] Work Phone: Comment on above: Expected: 04/13/2023, Expires: 3 Start: 04-13-2023 End: 06-13-2023 CBC W Auto Differential panel - Blood CBC + DIFF Lab Routine Annual physical exam Expected: 04/13/2023, Expires: 06/13/2023 [facility] Work Phone: Comment on above: Expected: 04/13/2023, Expires: 3 Start: 04-13-2023 End: 06-13-2023 Comprehensive metabolic 2000 panel - Serum or Plasma COMP METABOLIC PANEL Lab Routine Annual physical exam Expected: 04/13/2023, Expires: 06/13/2023 [facility] Work Phone: Comment on above: Expected: 04/13/2023, Expires: 3 Start: 04-13-2023 End: 06-13-2023 Hemoglobin A1c in Blood HGB A1C Lab Routine Annual physical exam Expected: 04/13/2023, Expires: 06/13/2023 [facility] Work Phone: Comment on above: Expected: 04/13/2023, Expires: 3 Start: 04-13-2023 End: 06-13-2023 LIPID PANEL, NONFASTING LIPID PANEL, NONFASTING Lab Routine Annual physical exam Expected: 04/13/2023, Expires: 06/13/2023 [facility] Work Phone: Comment on above: Expected: 04/13/2023, Expires: 3 Start: 04-13-2023 End: 06-13-2023 Thyrotropin [Units/volume] in Serum or Plasma TSH BLD Lab Routine Annual physical exam Expected: 04/13/2023, Expires: 06/13/2023 [facility] Work Phone: Comment on above: Expected: 04/13/2023, Expires: 3 Start: 04-07-2023 Influenza vaccination INFLUENZA (#1) [facility] Start: 02-18-2023 ANNUAL PCP TEAM CHRONIC DISEASE VISIT ANNUAL PCP TEAM CHRONIC DISEASE VISIT [facility] Start: 02-18-2023 BP CONTROLLED (<130/80) BP CONTROLLED (<130/80) [facility] Start: 04-07-2022 Influenza vaccination INFLUENZA (#1) [facility] Start: 02-04-2022 ANNUAL PCP TEAM CHRONIC DISEASE VISIT ANNUAL PCP TEAM CHRONIC DISEASE VISIT [facility] Start: 09-14-2021 COVID-19 VACCINE (3 - Booster for Pfizer series) COVID-19 VACCINE (3 - Booster for Pfizer series) [facility] Start: 06-09-2021 COVID-19 VACCINE (3 - Booster for Pfizer series) COVID-19 VACCINE (3 - Booster for Pfizer series) [facility] Start: 06-09-2021 COVID-19 VACCINE (3 - Pfizer series) COVID-19 VACCINE (3 - Pfizer series) [facility] Start: 03-15-2020 PNEUMOCOCCAL (2 - PCV) PNEUMOCOCCAL (2 - PCV) [facility] Start: 03-15-2020 Pneumococcal vaccination Pneumococcal Vaccine (2 of 2 - PCV) [facility] Start: 03-15-2020 Pneumococcal Vaccine: 50+ (2 of 2 - PCV) Pneumococcal Vaccine: 50+ (2 of 2 - PCV) [facility] Start: 2015 Influenza vaccination LUNG CANCER SCREENING [facility] Start: 2015 Screening for malignant neoplasm of lung Lung Cancer Screening [facility] Start: 2015 SHINGRIX VACCINE (1 of 2) SHINGRIX VACCINE (1 of 2) [facility] Start: 2010 COLOGUARD (FIT-DNA) COLOGUARD (FIT-DNA) [facility] Start: 2010 Colonoscopy COLONOSCOPY [facility] Start: 2010 COLORECTAL CANCER SCREENING COLORECTAL CANCER SCREENING [facility] Start: [address] COLONOGRAPHY [facility] Start: 2010 FECAL OCCULT BLOOD FECAL OCCULT BLOOD [facility] Start: 2010 Screening for malignant neoplasm of colon [facility] Start: 2010 SIGMOIDOSCOPY SIGMOIDOSCOPY [facility] Start: 2007 PAP TESTING PAP TESTING [facility] Start: 2005 Mammography [facility] Start: 2005 Screening for malignant neoplasm of breast Mammogram Screening [facility] Start: 1995 HPV TESTING HPV TESTING [facility] Start: 1986 PAP TESTING PAP TESTING [facility] Start: 1986 Screening for malignant neoplasm of cervix Cervical Cancer Screening [facility] Start: 1984 Hepatitis B Vaccine (1 of 3 - 19+ 3-dose series) Hepatitis B Vaccine (1 of 3 - 19+ 3-dose series) [facility] Start: 1983 BP CONTROLLED (<130/80) BP CONTROLLED (<130/80) [facility] Start: 1983 HEPATITIS C SCREENING HEPATITIS C SCREENING [facility] Start: 1983 Hepatitis C screening Hepatitis C Screening [facility] Start: 1983 HIV SCREENING HIV SCREENING [facility] Start: 1983 HIV screening HIV Screening [facility] Start: 1965 HEPATITIS B (1 of 3 - 3-dose series) HEPATITIS B (1 of 3 - 3-dose series) [facility] COLOGUARD COLOGUARD Lab Ro utine Screening for colon cancer Ordered: 09/19/2023 [facility] Work Phone: Comment on above: Ordered: 09/19/2023 CREATININE, 24 HOUR URINE CREATININE, 24 HOUR URINE Lab Routine Mass of both adrenal glands (HCC) Ordered: 06/28/2024 [facility] Comment on above: Ordered: 06/28/2024 End: 07-28-2025 CT Adrenal gland WO and W contrast IV CT ADRENAL WO/W IVCON Radiology Routine Disorder of adrenal gland (HCC) 1 Occurrences starting 06/28/2024 until 07/28/2025 [facility] Comment on above: 1 Occurrences starting 06/28/2024 until 07/28/2025 End: 12-05-2025 CT Chest W contrast IV CT CHEST W IVCON Radiology Routine Disorder of adrenal gland (HCC) 1 Occurrences starting 11/05/2024 until 12/05/2025 [facility] Comment on above: 1 Occurrences starting 11/05/2024 until 12/05/2025 CT Chest W contrast IV CT CHEST W IVCON Radiology Routine Disorder of adrenal gland (HCC) 11/15/2024 1:32 PM EDT [facility] Work Phone: End: 02-15-2025 DBT Breast - bilateral screening [facility]O SCREENING W GERALD Radiology Routine Encounter for screening mammogram for breast cancer 1 Occurrences starting 01/17/2024 until 02/15/2025 [facility] Work Phone: Comment on above: 1 Occurrences starting 01/17/2024 until 02/15/2025 End: 11-05-2025 ECG COMPLETE ECG COMPLETE ECG Routine Adrenal mass (HCC) 1 Occurrences starting 11/05/2024 until 11/05/2025 [facility] Comment on above: 1 Occurrences starting 11/05/2024 until 11/05/2025 Laparoscopy adrenalectomy prtl/compl tabdl LAPAROSCOPIC ADRENALECTOMY Adrenal mass (HCC) [facility] End: 03-09-2024 MAYITO SCREENING [facility] SCREENING Radiology Routine Encounter for screening mammogram for breast cancer 1 Occurrences starting 02/08/2023 until 03/09/2024 [facility] Work Phone: Comment on above: 1 Occurrences starting 02/08/2023 until 03/09/2024 METANEPHRINES 24H UR METANEPHRIN ES 24H UR Lab Routine Mass of both adrenal glands (HCC) Ordered: 06/28/2024 [facility] Comment on above: Ordered: 06/28/2024 End: 11-10-2025 MG Breast - bilateral Diagnostic [facility] DIAGNOSTIC BILATERAL Radiology Routine Abnormal mammogram 1 Occurrences starting 10/11/2024 until 11/10/2025 [facility] Work Phone: Comment on above: 1 Occurrences starting 10/11/2024 until 11/10/2025 REFER FOR ADMIT INTERVIEW REFER FOR ADMIT INTERVIEW Procedures Routine Adrenal mass (HCC) Ordered: 11/05/2024 [facility] Comment on above: Ordered: 11/05/2024 End: 03-11-2023 Screening mammography bi 2-view breast inc cad [facility]ITO SCREENING Radiology Routine Encounter for screening mammogram for breast cancer 1 Occurrences starting 02/09/2022 until 03/11/2023 [facility] Work Phone: Comment on above: 1 Occurrences starting 02/09/2022 until 03/11/2023 SPIROMETRY WITH DILA TOR IF OBSTRUCTED SPIROMETRY WITH DILATOR IF OBSTRUCTED PFT Routine Pre-operative examination 11/15/2024 1:43 PM EDT [facility] Work Phone: URINE FREE CORTISOL BY LC-MS/MS URINE FREE CORTISOL BY LC-MS/MS Lab Routine Mass of both adrenal glands (HCC) Ordered: 01/01/2025 [facility] Work Phone: Comment on above: Ordered: 01/01/2025 End: 11-10-2025 US Breast - left limited US BREAST LTD LEFT Radiology Routine Abnormal mammogram 1 Occurrences starting 10/11/2024 until 11/10/2025 [facility] Comment on above: 1 Occurrences starting 10/11/2024 until 11/10/2025 End: 11-10-2025 US Breast - right limited US BREAST LTD RIGHT Radiology Routine Abnormal mammogram 1 Occurrences starting 10/11/2024 until 11/10/2025 [facility] Comment on above: 1 Occurrences starting 10/11/2024 until 11/10/2025 [facility] Immunizations Immunization Date Immunization Notes Care Provider Fa cility 01-06-2024 tetanus toxoid, redu becki diphtheria toxoid, and acellular pertussis vaccine, adsorbed Dr. Rico Lemus MD Work Phone: [facility] 04-14-2021 COVID-19 vaccine, ag e 12+ yr (PFIZER-BIONTECH - PURPLE TOP) Erick Lemus MD Work Phone: [facility] 02-04-2021 COVID-19 vaccine, ag e 12+ yr (PFIZER-BIONTECH - PURPLE TOP) Erick Lemus MD Work Phone: [facility] 03-15-2019 pneumococcal polysaccharide vaccine, 23 valent Erick Lemus MD Work Phone: [facility] 03-15-2019 tetanus toxoid, redu becki diphtheria toxoid, and acellular pertussis vaccine, adsorbed Erick Lemus MD Work Phone: [facility] 06-16-2017 influenza, injectabl e, quadrivalent, contains preservative Erick Lemus MD Work Phone: [facility] 06-16-2017 influenza, injectabl e, quadrivalent, preservative free Dr. Rico Lemus MD Work Phone: [facility] 06-16-2017 influenza virus vaccine, unspecified formulation Erick Lemus MD Work Phone: [facility] Payers Date Payer Category Payer [facility] [id number] 2024 Unknown [id number] 2024 Self-pay 2016 Unknown GENE BLUE CARD PPO OOS [id number] 2016-Present [phone] [address] [place] [address] PPO [id number] 2016 Unknown [id number] 2016 Unknown [id number] Unknown [id number] Unknown [id number] Unknown [id number] Unknown [id number] Unknown [id number] Unknown [id number] Unknown [id number] Unknown [id number] Unknown [id number] Social History Date Type Detail Facility Start: 06-16-2017 End: 11-08-2024 Tobacco smoking status RIIS Smokes tobacco daily [facility] History of tobacco use Cigarette Smoker [facility] Start: 06-16-2017 End: 04-06-2023 Cigarettes smoked current (pack per day) - Reported 1 [facility] Start: 06-16-2017 End: 11-08-2024 Tobacco use and exposure Smokeless tobacco non-user [facility] Start: 02-05-2021 End: 11-11-2024 Alcohol intake Current non-drinker of alcohol (finding) [facility] Start: 1965 Sex Assigned At Not on file [facility] Start: 1965 Sex Assigned At Female [facility] Start: 02-18-2022 End: 04-06-2023 Tobacco use panel [facility] Adult Depression Scr eening Assessment 1 [facility] Start: 02-08-2023 Gender identity Identifies as female gender (finding) [facility] Start: 02-08-2023 Sexual orientation Heterosexual (fin ding) [facility] Do you belong to any clubs or organizations such as [employer] groups, [employer], [employer] or [employer]le[employer] groups, or school groups? No [facility] Are you now , , , , never or living with a partner? [facility] How often to you hav e a drink containing alcohol? Monthly or less [facility] How many standard dr inks containing alcohol do you have on a typical day? 3 or 4 [facility] How often do you hav e 6 or more drinks on 1 occasion? Never [facility] Do you feel stress - tense, restless, nervous, or anxious, or unable to sleep at night because your mind is troubled all the time - these days [OSQ] To some extent [facility] (I/We) worried whejoseph er (my/our) food would run out before (I/we) got money to buy more. Never true [facility] Do you belong to any clubs or organizations such as [employer] groups, [employer], [employer] or [employer] groups, or school groups? Yes [facility] How hard is it for y ou to pay for the very basics like food, housing, medical care, and heating Not very hard [facility] History of tobacco use Passive smoker [facility] Start: 11-08-2024 Tobacco Comment 12 cigarettes/ DAY [facility] Start: 12-31-2024 Tobacco Comment 10-12 cigarettes/day [facility] Functional Status Date Assessment Result Facility 11-21-2024 Are you deaf, or do you have serious difficulty hearing Yes 11/21/2024 11:08 AM Carrie Rutledge RN Yes [facility] 11-21-2024 Are you blind, or do you have serious difficulty seeing, even when wearing glasses Yes 11/21/2024 11:08 AM EDT Carrie Oreilly RN Yes [facility] 11-21-2024 Do you have serious difficulty walking or climbing stairs Yes 11/21/2024 11:08 AM EDT Carrie Oreilly RN Yes [facility] 11-21-2024 Do you have difficul ty dressing or bathing Yes 11/21/2024 11:08 AM EDT Carrie Oreilly, TIMBO Yes [facility] 11-21-2024 Because of a physica l, mental, or emotional condition, do you have difficulty doing errands alone such as visiting a physician's office or shopping Yes 11/21/2024 11:08 AM Carrie Rutledge RN Yes [facility] Mental Status Date Assessment Result Facility 11-21-2024 Because of a physica l, mental, or emotional condition, do you have serious difficulty concentrating, remembering, or making decisions No 11/21/2024 11:08 AM Carrie Rutledge RN No [facility] Clinical Notes 03-16-2022 to 01-30-2025 Jessee Wing RT(R) - 01/30/2025 7:00 AM EDT Note Date & Type Note Facility 01-30-2025 History of Present illness Narrative RADIOLOGY SERVICE PROGRESS NOTE SERVICE DATE: 01/30/2025 SERVICE TIME: 7:11 AM PATIENT IDENTITY VERIFICATION COMPLETED USING TWO (2) STANDARD IDENTIFIERS: Name and Date of confirmed by patient verbally and Name and Date of confirmed by identification band FALL SCREENING: Has the patient had 2 falls in the last year or 1 fall with injury or currently using an Ambulatory Assistive Device (Walker, Cane, Wheelchair, Crutches, etc.)? No PATIENT GENDER DATA: .female : No ALLERGIES: Reviewed and unchanged MEDICATIONS REVIEWED: No PATIENT RELEVANT IMPLANT DATA REVIEWED: Not Applicable PATIENT PRESENTS WITH AN IMPLANTABLE OR ATTACHED MOTOR COACH SUPERVISOR: No CREATININE: Creatinine Date Value Ref Range Status 11/21/2024 0.57 (L) 0.58 - 0.96 mg/dL Final 11/08/2024 0.69 0.58 - 0.96 mg/dL Final 10/14/2024 0.73 0.58 - 0.96 mg/dL Final Estimated Glomerular Filtration Rate Date Value Ref Range Status 11/21/2024 105 >=60 mL/min/1.73m Final Comment: Estimated Glomerular Filtration Rate (eGFR) is calculated using the 2020 CKD-EPI creatinine equation. This equation utilizes serum creatinine, sex, and age as parameters. The creatinine assay has traceable calibration to isotope dilution-mass spectrometry. Refer to KDIGO guidelines for clinical interpretation. In patients with unstable renal function, e.g. those with acute kidney injury, the eGFR may not accurately reflect actual GFR. eGFR- Date Value Ref Range Status 02/04/2021 >60 Final P.O.C.T. RESULTS: N/A January 30, [address] PERFORMED: No IV SITE: Ambulatory: CO only - direct IV injection in the Left antecubital site POST EXAM PIV STATUS: Not applicable PROCEDURE TYPE: NM INJECT: PET/CT BODY SCAN. 4.2 mCi [id number]. Administered By: JM . No other medications given.. ADMINISTRATION TIME: 0700 PATIENT DISCHARGED TO: Ambulatory patient, left [place] department area. Is this a therapy: No A Diagnostic radioactive procedure has taken place, with no further precautions necessary other than routine body substance precautions. More information regarding radiation safety can be found using this link: [email or web address] [email or web address] df SIGNATURE: REJI Foy) PATIENT NAME: Violet Chin DATE: January 30, 2025 TIME: 7:11 AM PAGER/CONTACT #: documented in this encounter [facility] 01-30-2025 Note HNO ID: [id number] Author: JESSEE WING RT(R) Service: Radiology Author Type: Technologist Type: Progress Notes Filed: 01/30/2025 07:11 Note Text: RADIOLOGY SERVICE PROGRESS NOTE SERVICE DATE: 01/30/2025 SERVICE TIME: 7:11 AM PATIENT IDENTITY VERIFICATION COMPLETED USING TWO (2) STANDARD IDENTIFIERS: Name and Date of confirmed by patient verbally and Name and Date of confirmed by identification band FALL SCREENING: Has the patient had 2 falls in the last year or 1 fall with injury or currently using an Ambulatory Assistive Device (Walker, Cane, Wheelchair, Crutches, etc.)? No PATIENT GENDER DATA: .female : No ALLERGIES: Reviewed and unchanged MEDICATIONS REVIEWED: No PATIENT RELEVANT IMPLANT DATA REVIEWED: Not Applicable PATIENT PRESENTS WITH AN IMPLANTABLE OR ATTACHED MOTOR COACH SUPERVISOR: No CREATININE: Creatinine Date Value Ref Range Status 11/21/2024 0.57 (L) 0.58 - 0.96 mg/dL Final 11/08/2024 0.69 0.58 - 0.96 mg/dL Final 10/14/2024 0.73 0.58 - 0.96 mg/dL Final Estimated Glomerular Filtration Rate Date Value Ref Range Status 11/21/2024 105 >=60 mL/min/1.73m? Final Comment: Estimated Glomerular Filtration Rate (eGFR) is calculated using the 2020 CKD-EPI creatinine equation. This equation utilizes serum creatinine, sex, and age as parameters. The creatinine assay has traceable calibration to isotope dilution-mass spectrometry. Refer to KDIGO guidelines for clinical interpretation. In patients with unstable renal function, e.g. those with acute kidney injury, the eGFR may not accurately reflect actual GFR. eGFR- Date Value Ref Range Status 02/04/2021 >60 Final P.O.C.T. RESULTS: N/A January 30, [address] PERFORMED: No IV SITE: Ambulatory: CO only - direct IV injection in the Left antecubital site POST EXAM PIV STATUS: Not applicable PROCEDURE TYPE: NM INJECT: PET/CT BODY SCAN. 4.2 mCi [id number]. Administered By: JM . No other medications given.. ADMINISTRATION TIME: 0700 PATIENT DISCHARGED TO: Ambulatory patient, left [place] department area. Is this a therapy: No A Diagnostic radioactive procedure has taken place, with no further precautions necessary other than routine body substance precautions. More information regarding radiation safety can be found using this link: [email or web address] [email or web address]-% 20Diagnostic%20Nuclear%20Medicin [email or web address] SIGNATURE: RT Danii(R) PATIENT NAME: Violet Chin DATE: January 30, 2025 TIME: 7:11 AM PAGER/CONTACT #: [facility] 01-27-2025 Progress note [facility] 01-27-2025 Progress note Note Date/Time January 27, 2025 3:29pm [facility] [address], [address] [place] [address] OFFICE VISIT Date of Service: 01/27/25 MR#: [id number] Acct: [id number] Name: VIOLET CHIN Rep #: [id number] 1965 Provider: MIRTA Thakkar Age/Sex: 59/F [place] [facility] [place]: Signed Intake Vital Signs 04/17/24 12:39 01/24/25 14:29 Height 5 ft 3 in 5 ft 3 in Intake Visit Reasons: PE NON DOT PHYSICAL/ROSA BRUSH Accompanied by: Self Allergies fluoxetine (From SW[facility] System) Allergy (Verified 01/27/25 15:26) Abd cramps/diarrhea Medications ?Medication ?Instructions ?Recorded ?Confirmed ?Type atorvastatin 80 mg tablet 80 mg PO QHS cholesterol 05/3001/27/25 History bupropion HCl 150 mg tablet,12 hr 150 mg PO BID 01/27/25 History sustained-release lisinopril 10 1 tab PO DAILY 04/16/2401/06 History mg-hydrochlorothiazide 12.5 mg tablet sertraline 100 mg tablet 100 mg PO DAILY 04/16/24 History pantoprazole 40 mg tablet,delayed 40 mg PO BID 90 days #180 tabs 04/18/24 Rx release sucralfate 1 gram tablet 1 g PO 1HR_ACHS 14 days #42 tabs 04/18/24 Rx PFSH Medical History (Updated 01/27/25 @ 15:20 by Stanley KIRBY, PA) Physical exam, pre-employment Tobacco abuse Obesity (BMI 30.0-34.9) Adrenal mass Duodenal mass Bleeding tendency Post-menopausal Back pain due to injury High cholesterol Smoker Depression Hypertension Surgical History S/P tubal ligation Social History Smoking Status: Current every day smoker tobacco type: cigarettes HPI HPI Details: VIOLET CHIN, is a 59 F who presents to the office today for Office Procedures Physical Exam Coding PE Coding Pre-employment PE: Yes Coding Level of Care Code Attention Ne[place]da Diagnoses Physical exam, pre-employment Z02.1 Assessment and Plan Assessment and Plan (1) Physical exam, pre-employment: Status: Acute 01/27/25 1529 <Electronically signed by Stanley KIRBY> Date _ Stanley KIRBY Cosigner Signature: Date (if applicable) CC: ~ [employer] Work Phone: [phone] 251-319506-03-2025 NoteHNO ID: [id number] Author: MOUNA HIRSCH MS Service: ? Author Type: Genetic Counselor Type: Progress Notes Filed: 01/07/2025 15:04 Note Text: [facility] Department of Medical Genetics Consultation Note Genetic Counselor: Mouna Hirsch MS, [facility] [place] Patient: Violet Chin This visit was conducted via [employer]. I have communicated my name and active licensure. The patient's identity and physical location were verified at the time of this visit. Either the patient or their legal sales representative wire rope has been informed of the risks and benefits of -- and alternatives to -- treatment through a remote evaluation and consents to proceed with the evaluation remotely. 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 The patient provided informed consent for Hereditary Paraganglioma-Pheochromocytoma Panel plus preliminary evidence genes and Multi-Cancer panel through [facility]. Results are expected in 2-3 weeks from the time of sample collection. IDENTIFICATION AND CHIEF COMPLAINT: Dr. John Bradley requested a consultation for genetic counseling and risk assessment for Violet Chin, a 59 year old female, for discussion of her recent diagnosis of pheochromocytoma. She presents to clinic today to discuss the possibility of a genetic predisposition to cancer, and to further clarify her risks, as well as her family members' risks for cancer. 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 This was treated with right adrenalectomy. PAST MEDICAL HISTORY Diagnosis Date Anxiety and depression History of COVID-19 08/2020 HTN (hypertension) Lumbar herniated disc s/p laminectomy-pain free Marijuana use Mixed hyperlipidemia Obesity (BMI 30-39.9) Prediabetes Tobacco use PAST SURGICAL HISTORY Procedure Laterality Date SNGL 1986 SNGL 1987 SNGL 2000 EYE SURGERY HX 1972 correct lazy eye LAMINECTOMY W/O FFD 1/2 VERT SEG LUMBAR 2007 LAPAROSCOPIC ADRENALECTOMY Right 11/20/2024 TUBAL LIGATION 2000 CANCER SURVEILLANCE HISTORY: Mammograms: Yes / December 2024 Colonoscopy: No EGD: Yes / April 2024 - ulcer REPRODUCTIVE HISTORY AND PERSONAL RISK ASSESSMENT FACTORS: Weight: Last 1 Encounter Wt Readings: Date: Wt: 12/31/2024 91 kg (200 lb 9.6 oz) Height: Last 1 Encounter Ht Readings: Date: Ht: 12/31/2024 162.6 cm (5' 4) Uterus Intact: Yes Ovaries Intact: Yes SOCIAL HISTORY: Social History Tobacco Use Smoking status: Every Day Current packs/day: 0.50 Average packs/day: 0.5 packs/day for 30.0 years (15.0 ttl pk-yrs) Types: Cigarettes Passive exposure: Current Smokeless tobacco: Never Tobacco comments: 10-12 cigarettes/day Vaping Use Vaping status: Never Used Substance Use Topics Alcohol use: No Drug use: Not Currently Types: Marijuana Comment: occasionally- 2 times a year FAMILY HISTORY: We obtained a detailed, 4-generation family history. Significant diagnoses are listed below: FAMILY HISTORY Problem Relation Age of Onset Ischemic Heart Disease Mother COPD Mother No Known Problems Father No Known Problems Brother No Known Problems Brother Cancer Maternal Grandmother unknown primary Accidental Maternal Grandfather Bipolar disorder Daughter No Known Problems Daughter No Known Problems Son Cleft palate (HCC) Nephew Adrenal Insufficiency No Family History A copy of the patient's pedigree will be available under the scanned documents tab following today's visit. GENETIC COUNSELING RISK ASSESSMENT, DISCUSSION, AND SUGGESTED FOLLOW UP: We reviewed the natural history and genetic etiology of sporadic, familial and hereditary cancer syndromes. The patient's personal history is potentially suggestive of: Hereditary Paraganglioma-Pheochromocytoma Syndrome The patient meets NCCN testing criteria based on her personal history of pheochromocytoma. We discussed that identification of a hereditary cancer syndrome may help her care providers tailor her medical management. If a mutation is detected, the National Comprehensive Cancer Network and/or expert opinion recommendations could include increased cancer surveillance options. If a mutation is detected, the patient will be referred back to the referring provider and to any additional appropriate care providers to discuss the relevant options. Inheritance of hereditary cancer syndromes was discussed with the patient. If a mutation is not found in the patient, this will decrease the likelihood of a hereditary syndrome as the explanation for the patient's recent diagnosis of pheochromocytoma. However, it cannot completely rule out this possibility. Cancer surveillance options would be (more content not included)...[facility]06-03-2025 History of Present illness Narrative* Mouna Hirsch MS - 01/07/2025 11:09 AM EDT Images from the original note were not included. [facility] Department of Medical Genetics Consultation Note Genetic Counselor: Mouna Hirsch MS, [facility] [place] Patient: Violet Chin This visit was conducted via [employer]. I have communicated my name and active licensure. The patient's identity and physical location were verified at the time of this visit. Either the patient or their legal sales representative wire rope has been informed of the risks and benefits of -- and alternatives to -- treatment through a remote evaluation and consents to proceed with the evaluation remotely. 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 The patient provided informed consent for Hereditary Paraganglioma- Pheochromocytoma Panel plus preliminary evidence genes and Multi-Cancer panel through [facility]. Results are expected in 2-3 weeks from the time of sample collection. IDENTIFICATION AND CHIEF COMPLAINT: Dr. John Bradley requested a consultation for genetic counseling and risk assessment for Violet Chin, a 59 year old female, for discussion of her recent diagnosis of pheochromocytoma. Shepresents to clinic today to discuss the possibility of a genetic predisposition to cancer, and to further clarify her risks, as well as her family members' risks for cancer. 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 This was treated with right adrenalectomy. PAST MEDICAL HISTORY Diagnosis Date Anxiety and depression History of COVID-19 08/2020 HTN (hypertension) Lumbar herniated disc s/p laminectomy-pain free Marijuana use Mixed hyperlipidemia Obesity (BMI 30-39.9) Prediabetes Tobacco use PAST SURGICAL HISTORY Procedure Laterality Date SNGL 1986 SNGL 1987 SNGL 2000 EYE SURGERY HX 1972 correct lazy eye LAMINECTOMY W/O FFD 1/2 VERT SEG LUMBAR 2007 LAPAROSCOPIC ADRENALECTOMY Right 11/20/2024 TUBAL LIGATION 2000 CANCER SURVEILLANCE HISTORY: Mammograms: Yes / December 2024 Colonoscopy: No EGD: Yes / April 2024 - ulcer REPRODUCTIVE HISTORY AND PERSONAL RISK ASSESSMENT FACTORS: Weight: Last 1 Encounter Wt Readings: Date: Wt: 12/31/2024 91 kg (200 lb 9.6 oz) Height: Last 1 Encounter Ht Readings: Date: Ht: 12/31/2024 162.6 cm (5' 4) Uterus Intact: Yes Ovaries Intact: Yes SOCIAL HISTORY: Social History Tobacco Use Smoking status: Every Day Current packs/day: 0.50 Average packs/day: 0.5 packs/day for 30.0 years (15.0 ttl pk-yrs) Types: Cigarettes Passive exposure: Current Smokeless tobacco: Never Tobacco comments: 10-12 cigarettes/day Vaping Use Vaping status: Never Used Substance Use Topics Alcohol use: No Drug use: Not Currently Types: Marijuana Comment: occasionally- 2 times a year FAMILY HISTORY: We obtained a detailed, 4-generation family history. Significant diagnoses are listed below: FAMILY HISTORY Problem Relation Age of Onset Ischemic Heart Disease Mother COPD Mother No Known Problems Father No Known Problems Brother No Known Problems Brother Cancer Maternal Grandmother unknown primary Accidental Maternal Grandfather Bipolar disorder Daughter No Known Problems Daughter No Known Problems Son Cleft palate (HCC) Nephew Adrenal Insufficiency No Family History A copy of the patient's pedigree will be available under the scanned documents tab following today's visit. GENETIC COUNSELING RISK ASSESSMENT, DISCUSSION, AND SUGGESTED FOLLOW UP: We reviewed the natural history and genetic etiology of sporadic, familial and hereditary cancer syndromes. The patient's personal history is potentially suggestive of: Hereditary Paraganglioma-Pheochromocytoma Syndrome The patient meets NCCN testing criteria based on her personal history of pheochromocytoma. We discussed that identification of a hereditary cancer syndrome may help her care providers tailorher medical management. If a mutation is detected, the National Comprehensive Cancer Network and/[facility] opinion recommendations could include increased cancer surveillance options. If a mutation is detected, the patient will be referred back to the referring provider and to any additional appropriate care providers to discuss the relevant options. Inheritance of hereditary cancer syndromes was discussed with the patient. If a mutation is not found in the patient, this will decrease the likelihood of a hereditary syndrome as the explanation for the patient's recent diagnosis of pheochromocytoma. However, it cannot completely rule out this possibility. Cancer surveillance options would be discussed for the patient according to the appropriate standard National Comprehensive Cancer Network and [place] [employer] guidelines, with consideration of their personal and family history risk factors. In this case, the patient will be referred back to their care providers for discussions of management. Based on this assessment of the patient's family and personal history, genetic testing is recommended. The patient was offered Hereditary Paraganglioma-Pheochromocytoma Panel plus preliminary evidence genes through +/- Multi-Cancer panel through [facility]. After considering the risks, benefits, and limitations, the patient chose to pursue and provided informed consent for the following testing: Hereditary Paraganglioma-Pheochromocytoma Panel plus preliminary evidence genes and Multi- Cancer panel through [facility]. The Hereditary Paraganglioma-Pheochromocytoma Panel includes the following 19 genes: FH, MAX, NF1, RET, SDHA, SDHAF2, SDHB, SDHC, SDHD, [id number], VHL. Preliminary evidence genes are DLST, EGLN1, EPAS1, KIF1B, MDH2, MEN1, [id number], SUCLG2 The Multi-Cancer Panel includes the following 70 genes: AIP, ALK, APC, CLARISSA, AXIN2, BAP1, BARD1, BLM, BMPR1A, BRCA1, BRCA2, BRIP1, CDC73, CDH1, CDK4, CDKN1B, CDKN2A, CHEK2, CTNNA1, DICER1, EGFR, EPCAM, FH, FLCN, GREM1, HOXB13, KIT, LZTR1, MAX, MBD4, MEN1, MET, MITF, MLH1, MSH2, MSH3, MSH6, MUTYH, NF1, NF2, NTHL1, PALB2, PDGFRA, PMS2, POLD1, POLE, POT1, GLREK0Q, PTCH1, PTEN, RAD51C, RAD51D, RB1, RET, SDHA, SDHAF2, SDHB, SDHC, SDHD, SMAD4, SMARCA4, SMARCB1, SMARCE1, STK11, SUFU, ZVUK200, TP53, TSC1, TSC2, VHL. The Multi-Cancer panel looks at genes associated with cancers of the breast, gynecologic tract (ovarian, uterine/endometrial), gastrointestinal system (colorectal, gastric, pancreatic), endocrine glands (thyroid, parathyroid, pituitary, adrenal glands), genitourinary tract (renal/urinary tract, prostate), skin (melanoma, basal cell carcinoma), and brain/nervous system. We discussed that an NGS panel can rarely result in an unexpected finding which may or may not be related to the presenting phenotype. Per the patient's request, we will contact her by myChart or telephone to review these results. A follow up genetic counseling visit will be scheduled if requested. I spent a total of 40 minutes on the date of the service, which included preparing to see the patient, [id number] patient care, completing clinical documentation, obtaining and/or reviewing separately obtained history, counseling and educating the patient/family/caregiver, ordering tests, communic ating with other HCPs (not separately reported), independently interpreting results (not separatelyreported), communicating results to the patient/family/caregiver, and care coordination (not separately reported). This plan is being carried out under the oversight of Dr. Ev Cota. This note will also be sent to the referring provider via the electronic medical record. Mouna Hirsch MS, [facility] Licensed, Certified Genetic Counselor [facility] CC: Dr. John Cota documented in this encounterCleveland Hewxpp07-25-0701 Instructions* Patient Instructions* Nina Lerner MD - 12/31/2024 4:16 PM EDT COLLECTING URINE FOR 24 HOURS: 1. Best done the morning of one day to the morning of the next day ( two consecutive mornings). 2. Imperative that you arise from bed at the exact same time on Day 1 and Day 2. 3. When you arise on Day 1 you will have to urinate. This goes into the toilet and is flushed away. 4. Every time from then on for the remainder of Day 1 and at night Day 1 to Day 2, every drop of urine that you pass must go into the container that we will provide for you. 5. When you arise on Day 2 you will also have to urinate. This goes into the container and completes the urine collection. 6. The container should be kept refrigerated until it is turned in to the laboratory. 7. Bring the completed urine collection container to the laboratory as soon as possible. Keep the appointment fir genetic testing and [facility] PET/CT documented in this encounterBet[facility] NoteHNO ID: [id number] Author: NINA LERNER MD Service: ? Author Type: Physician Type: Progress Notes Filed: 01/23/2025 19:02 Note Text: [facility] Follow up note Patient referred by: Aissatou Mac APRN. [employer] Chief compliant: B/L Adrenal nodules History of Present Illness: Ms. Violet Chin is a 58 year old female coming today for follow up of bilateral adrenal nodules. S/p right adrenalectomy on 11/20/24 with surgical pathology revealing Pheochromocytoma She also has a hx of duodenal ulcers and is on protonix, carafate for the same Initial visit 06/28/2024. History in brief, she underwent CT abdomen for abdominal pain when adrenal nodules were incidentally found in bilateral adrenal glands. On work up, nodules were concerning for excess cortisol secretion although unsure laterality but due to size of the right sided adrenal nodule being more than 4 cm, right adrenalectomy was performed by Dr. Lpoez, and she is following up today first time post surgery Past Medical History: PAST MEDICAL HISTORY Diagnosis Date Anxiety and depression History of COVID-19 08/2020 HTN (hypertension) Lumbar herniated disc s/p laminectomy-pain free Marijuana use Mixed hyperlipidemia Obesity (BMI 30-39.9) Prediabetes Tobacco use Surgical History: PAST SURGICAL HISTORY Procedure Laterality Date SNGL 1986 SNGL 1987 SNGL 2000 EYE SURGERY HX 1972 correct lazy eye LAMINECTOMY W/O FFD 08/08 VERT SEG LUMBAR 2007 LAPAROSCOPIC ADRENALECTOMY Right 11/20/2024 TUBAL LIGATION 2000 Family Medical History: FAMILY HISTORY Problem Relation Age of Onset COPD Mother No Known Problems Father No Known Problems Sister No Known Problems Sister No Known Problems Brother No Known Problems Brother Cancer Maternal Grandmother No Known Problems Daughter No Known Problems Daughter No Known Problems Son Adrenal Insufficiency No Family History Social History: Social History Tobacco Use Smoking status: Every Day Current packs/day: 0.50 Average packs/day: 0.5 packs/day for 30.0 years (15.0 ttl pk-yrs) Types: Cigarettes Passive exposure: Current Smokeless tobacco: Never Tobacco comments: 10-12 cigarettes/day Vaping Use Vaping status: Never Used Substance Use Topics Alcohol use: No Drug use: Not Currently Types: Marijuana Comment: occasionally- 2 times a year Allergies: ALLERGIES Allergen Reactions Prozac [Fluoxetine] GI Upset Current medications: Current Outpatient Medications Medication Sig lisinopril-hydroCHLOROthiazide (ZESTORETIC) 10-12.5 mg per tablet Take 1 tablet by mouth once daily. sertraline (ZOLOFT) 100 mg tablet Take 1 tablet by mouth once daily. buPROPion SR (WELLBUTRIN SR) 150 mg 12 hr tablet Take 1 tablet by mouth two times a day. atorvastatin (LIPITOR) 80 mg tablet Take 1 tablet by mouth daily at bedtime. For cholesterol. pantoprazole DR (PROTONIX) 40 mg tablet Take 1 tablet by mouth every 12 hours. (Patient not taking: Reported on 12/31/2024) No current facility-administered medications for this visit. Review of Systems: 10 point ROS was reviewed and negative unless indicated in the HPI Physical exam: BP 138/84 (BP Site: Right Arm, BP Position: Sitting, BP Cuff Size: Large Adult) Pulse 71 Resp 19 Ht 162.6 cm (5' 4) Wt 91 kg (200 lb 9.6 oz) SpO2 98% BMI 34.43 kg/m? General Appearance: Well appearing, alert, in no acute distress, well-hydrated, well nourished, obese body habitus Skin: Skin color, texture, turgor normal, no suspicious rashes or lesions. Eyes: Anicteric sclera. Extraocular movements are intact. Neck: Supple, no adenopathy; thyroid symmetric, normal size, no bruits. Lungs: unlabored breathing on room air Heart: Regular leatha and rhythm Abdomen: no typical concerning features noted, obese abdomen Extremities: No deformities, edema, skin discoloration, clubbing or cyanosis. Musculoskeletal: No joint swelling, deformity, spinal tenderness Peripheral Pulses: Normal. Neurologic: Gait normal. Previous laboratory results: Latest Ref Rng 10/25/2024 10/28/2024 Hours Collected hr 24 Total Volume mL 1675 Epinephrine, Ur per vol ug/L 4 Norepinephrine, Ur per vol ug/L 23 Dopamine, Ur per vol ug/L 170 Epinephrine, Ur ratio to PROPERTY MANAGEMENT INTERN 0 - 20 ug/g PROPERTY MANAGEMENT INTERN 6 Epinephrine, Ur 24hr 1 - 14 ug/d 7 Norepinephrine, Ur ratio to PROPERTY MANAGEMENT INTERN 0 - 45 ug/g PROPERTY MANAGEMENT INTERN 37 Norepinephrine, Ur 24hr 14 - 120 ug/d 39 Dopamine, Ur ratio to PROPERTY MANAGEMENT INTERN 0 - 250 ug/g PROPERTY MANAGEMENT INTERN 270 (H) Creatinine, Urine Per Volume mg/dL 63 Creatinine, Urine Per 24H 500 - 1400 mg/d 1055 Dopamine, Ur 24hr 71 - 485 ug/d 285 Catecholamines Interpretation See Note Metanephrine 52 - 341 ug/24 hr 365 (H) Normetanephrine 88 - 444 ug/24 hr 526 (H) Tot Metanephrine 140 - 785 ug/24 hr 891 (H) Urine Volume 24 hour mL 1,675 Urine Volume 24 hour mL 1,675 Period hr 24 Period hr 24 Aldosterone 0.0 - <35.4 ng (more content not included)...[facility]05-27-2025 History of Present illness Narrative* Nina Lerner MD - 12/31/2024 4:03 PM EDT Images from the original note were not included. [facility] Follow up note Patient referred by: Aissatou Mac APRN. [employer] Chief compliant: B/L Adrenal nodules History of Present Illness: Ms. Violet Chin is a 58 year old female coming today for follow up of bilateral adrenal nodules. S/p right adrenalectomy on 11/20/24 with surgical pathology revealing Pheochromocytoma She also has a hx of duodenal ulcers and is on protonix, carafate for the same Initial visit 06/28/2024. History in brief, she underwent CT abdomen for abdominal pain when adrenal nodules were incidentally found in bilateral adrenal glands. On work up, nodules were concerning for excess cortisol secretion although unsure laterality but due to size of the right sided adrenal nodule being more than 4 cm, right adrenalectomy was performed by Dr. Lopez, and she is following up today first time post surgery Past Medical History: PAST MEDICAL HISTORY Diagnosis Date Anxiety and depression History of COVID-19 08/2020 HTN (hypertension) Lumbar herniated disc s/p laminectomy-pain free Marijuana use Mixed hyperlipidemia Obesity (BMI 30-39.9) Prediabetes Tobacco use Surgical History: PAST SURGICAL HISTORY Procedure Laterality Date SNGL 1986 SNGL 1987 SNGL 2000 EYE SURGERY HX 1972 correct lazy eye LAMINECTOMY W/O FFD 1/2 VERT SEG LUMBAR 2007 LAPAROSCOPIC ADRENALECTOMY Right 11/20/2024 TUBAL LIGATION 2000 Family Medical History: FAMILY HISTORY Problem Relation Age of Onset COPD Mother No Known Problems Father No Known Problems Sister No Known Problems Sister No Known Problems Brother No Known Problems Brother Cancer Maternal Grandmother No Known Problems Daughter No Known Problems Daughter No Known Problems Son Adrenal Insufficiency No Family History Social History: Social History Tobacco Use Smoking status: Every Day Current packs/day: 0.50 Average packs/day: 0.5 packs/day for 30.0 years (15.0 ttl pk-yrs) Types: Cigarettes Passive exposure: Current Smokeless tobacco: Never Tobacco comments: 10-12 cigarettes/day Vaping Use Vaping status: Never Used Substance Use Topics Alcohol use: No Drug use: Not Currently Types: Marijuana Comment: occasionally- 2 times a year Allergies: ALLERGIES Allergen Reactions Prozac [Fluoxetine] GI Upset Current medications: Current Outpatient Medications Medication Sig lisinopril-hydroCHLOROthiazide (ZESTORETIC) 10-12.5 mg per tablet Take 1 tablet by mouth once daily. sertraline (ZOLOFT) 100 mg tablet Take 1 tablet by mouth once daily. buPROPion SR (WELLBUTRIN SR) 150 mg 12 hr tablet Take 1 tablet by mouth two times a day. atorvastatin (LIPITOR) 80 mg tablet Take 1 tablet by mouth daily at bedtime. For cholesterol. pantoprazole DR (PROTONIX) 40 mg tablet Take 1 tablet by mouth every 12 hours. (Patient not taking:Reported on 12/31/2024) No current facility-administered medications for this visit. Review of Systems: 10 point ROS was reviewed and negative unless indicated in the HPI Physical exam: BP 138/84 (BP Site: Right Arm, BP Position: Sitting, BP Cuff Size: Large Adult) Pulse 71 Resp 19 Ht 162.6 cm (5' 4) Wt 91 kg (200 lb 9.6 oz) SpO2 98% BMI 34.43 kg/m General Appearance: Well appearing, alert, in no acute distress, well-hydrated, well nourished, obese body habitus Skin: Skin color, texture, turgor normal, no suspicious rashes or lesions. Eyes: Anicteric sclera. Extraocular movements are intact. Neck: Supple, no adenopathy; thyroid symmetric, normal size, no bruits. Lungs: unlabored breathing on room air Heart: Regular leatha and rhythm Abdomen: no typical concerning features noted, obese abdomen Extremities: No deformities, edema, skin discoloration, clubbing or cyanosis. Musculoskeletal: No joint swelling, deformity, spinal tenderness Peripheral Pulses: Normal. Neurologic: Gait normal. Previous laboratory results: Latest Ref Rng 10/25/2024 10/28/2024 Hours Collected hr 24 Total Volume mL 1675 Epinephrine, Ur per vol ug/L 4 Norepinephrine, Ur per vol ug/L 23 Dopamine, Ur per vol ug/L 170 Epinephrine, Ur ratio to PROPERTY MANAGEMENT INTERN 0 - 20 ug/g PROPERTY MANAGEMENT INTERN 6 Epinephrine, Ur 24hr 1 - 14 ug/d 7 Norepinephrine, Ur ratio to PROPERTY MANAGEMENT INTERN 0 - 45 ug/g PROPERTY MANAGEMENT INTERN 37 Norepinephrine, Ur 24hr 14 - 120 ug/d 39 Dopamine, Ur ratio to PROPERTY MANAGEMENT INTERN 0 - 250 ug/g PROPERTY MANAGEMENT INTERN 270 (H) Creatinine, Urine Per Volume mg/dL 63 Creatinine, Urine Per 24H 500 - 1400 mg/d 1055 Dopamine, Ur 24hr 71 - 485 ug/d 285 Catecholamines Interpretation See Note Metanephrine 52 - 341 ug/24 hr 365 (H) Normetanephrine 88 - 444 ug/24 hr 526 (H) Tot Metanephrine 140 - 785 ug/24 hr 891 (H) Urine Volume 24 hour mL 1,675 Urine Volume 24 hour mL 1,675 Period hr 24 Period hr 24 Aldosterone 0.0 - <35.4 ng/dL 8.4 Direct Renin 3.6 - 81.6 pg/mL 40.7 Aldosterone/Renin Ratio <3.8 0.2 Patient Upright or Supine Upright Creatinine 24 hr Ur 0.800 - 1.800 g/24 hr 0.951 ACTH 7.2 - 63.3 pg/mL 10.3 DHEA-S 18.9 - 205.0 ug/dL 37.3 Dexamethasone ng/dL <50.0 Potassium 3.7 - 5.1 mmol/L 3.6 (L) Cortisol,ON DEX,Post <1.8 ug/dL 13.7 (H) Legend: (L) Low (H) High Latest Ref Rng 11/21/2024 11/29/2024 Glucose 74 - 99 mg/dL 130 (H) BUN 7 - 21 mg/dL 11 Creatinine 0.58 - 0.96 mg/dL 0.57 (L) Sodium 136 - 144 mmol/L 133 (L) Potassium 3.7 - 5.1 mmol/L 3.9 Chloride 98 - 107 mmol/L 94 (L) CO2 22 - 30 mmol/L 26 Anion Gap 8 - 15 mmol/L 13 Calcium 8.5 - 10.2 mg/dL 9.5 eGFR >=60 mL/min/1.73m 105 Epinephrine (PLCAT) <=330 pmol/L 102 Norepinephrine 1050 - 4800 pmol/L 2859 Dopamine <=240 pmol/L 146 Catecholamine Interpretation Plasma See Note Metanephrine, Plasma 12 - 67 pg/mL 27 Normetanephrine, Free Plasma 18 - 101 pg/mL 94 ACTH 7.2 - 63.3 pg/mL 8.1 Cortisol 4.8 - 19.5 ug/dL 14.2 Legend: (H) High (L) Low Imaging: Previous Adrenal CT: CT ABDOMEN / ADRENAL GLANDS WITHOUT AND WITH IV CONTRAST : 10/14/2024 CLINICAL HISTORY: Abnormal adrenal glands TECHNIQUE: Thin section spiral imaging through the adrenal glands was performed without and with contrast using washout technique. Oral contrast is not administered per protocol. Contrast: IV: 100 ml of Omnipaque 350 Oral Contrast: None CT Radiation dose: Integrated Dose-length product (DLP) for this visit = 1459 mGy*cm. CT Dose Reduction Employed: Automated exposure control(AEC) and iterative recon COM[facility]: [facility] for outside CT abdomen 04/16/2024 , no images available. RESULT: Adrenal glands: Right adrenal gland: Hypoattenuating nodular thickening of the crural limb, adjacent isoattenuating mass in the anterior medial limb. Adrenal Lesion #1 characteristics: crural limb - Dimensions: 3.0 x 1.7 cm - Pre-contrast attenuation: 3 H.U. - Portal phase attenuation: 35 H.U. - Delayed phase attenuation: 9 H.U. - Absolute wash-out: 81% consistent with an adenoma. - Relative wash-out: 74% consistent with an adenoma. Adrenal Lesion #2 characteristics: mass in the anterior limb - Dimensions: 4.3 x 2.9 x 4.8 cm - Pre-contrast attenuation: 26 H.U. - Portal phase attenuation: 56 H.U. - Delayed phase attenuation: 51 H.U. - Absolute wash-out: 17% Absolute washout less than 60% is indeterminate. - Relative wash-out: 9% Absolute washout less than 60% is indeterminate. Left adrenal gland: Hypoattenuating nodular thickening of the posterior medial and posterior lateral limbs Adrenal Lesion #3 characteristics: Posterior medial limb - Dimensions: 3.3 x 1.9 cm cm - Pre-contrast attenuation: -6 H.U. - Portal phase attenuation: 23 H.U. - Delayed phase attenuation: -4 H.U. - Absolute wash-out: 93% consistent with an adenoma. - Relative wash-out: 100% consistent with an adenoma. Adrenal Lesion #4characteristics: Posterior lateral limb - Dimensions: 3.3 x 1.9 cm cm - Pre-contrast attenuation: 0 H.U. - Portal phase attenuation: 17 H.U. - Delayed phase attenuation: 4 H.U. - Absolute wash-out: 77% consistent with an adenoma. - Relative wash-out: 77% consistent with an adenoma. Abdomen Liver: No mass. A 1.8 cm cyst is present in the left hepatic dome, 1.2 cm cyst in the segment 4A and NPI there is a cyst in the inferior right hepatic lobe. Biliary: No bile duct dilation. Gallbladder is unremarkable. Spleen: No mass. No splenomegaly. Pancreas: No mass or duct dilation. Kidneys: Punctate calcifications in the renal pelves bilaterally are likely vascular in nature. A 1.4 cm cortical cyst is present in the anterior aspect of the inferior renal pole, and 1.9 cm parapelvic cyst in the interpolar region. GI tract: A 3.0 cm lipoma is present in the descending duodenum. No dilation or wall thickening. Appendix is normal. Lymph nodes: No abdominal lymphadenopathy. Mesentery/Peritoneum: No ascites or mass. Vasculature: - Abdominal aorta and iliac arteries: Atherosclerotic calcifications without aneurysm. - Celiac and SMA: Patent without stenosis. - Portal venous system (SMV, splenic vein, portal vein and branches): Patent. - Hepatic veins: Patent. - Other: None Bones/Soft Tissues: Lower lumbar spondylosis. Lower Thorax: No consolidation or pleural effusion Localizer images: No additional findings IMPRESSION: 1. Indeterminate 4.8 cm mass in the right adrenal, worrisome for adrenal malignancy. If no cancer history, consider resection because of the possibility of an adrenocortical carcinoma. If there is a cancer history consider PET or biopsy the 1.1 cm left retroperitoneal lymph node demonstrate maintained central fatty hilum. 2. 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 Surgical Pathology: 11/20/24: FINAL DIAGNOSIS A. 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 As typical in adults, the neuroblastic component is somewhat difficult to classify using conventional pediatric criteria. In our opinion, the tumor isat least ganglioneuroblastoma, intermixed. However, there are scattered areas of necrosis such that we cannot entirely exclude small foci representing nodular subtype with complete necrosis. Dr. Iván Lemon has also reviewed the neuroblastic component and concurs. The pheochromocytoma component of the neoplasm stains negative for SF1 and positive for chromogranin, GATA3, and synaptophysin.The sustentacular supporting cells stain positive for S100. The pheochromocytoma has histologic features which are associated with aggressive behavior with a PASS score of 7 (invasion into periadrenal adipose tissue - 2 points, diffuse/large nested growth - 2 points, tumor spindling - 2 points, prof ound nuclear pleomorphism - 1 point). The neoplasm comes to within 0.1 mm of the capsular margin, but no definitive tumor is present at the margin. ASSESSMENT/PLAN: Patient presents for follow up of evaluation of b/l adrenal nodules, s/p right adrenalectomy demonstrating Pheo Pre-surgical labs indicated excess cortisol production. 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 And for the same reason I discussed DOTATATE scan to detect foci extra adrenally. Also indicated doing genetic testing. Orders for these were previously placed and she has scheduled them Instructions for 24 hr urine testing given for metanephrines and Catecholamines The other right nodule, and both left nodule are less than 4 cm and are consistent with features ofadenoma. Still possibility exists for excess cortisol from one of the left sided nodules, and hence will add24 hr urine cortisol to the labs, and will management accordingly if abnormal - most likely medicalmanagement 1. Mass of both adrenal glands (HCC) (Primary) - URINE FREE CORTISOL BY LC-MS/MS All questions welcomed and answered to satisfaction The assessment and benefits/risks of the plan were discussed with the patient who expressed understanding and was agreeable to that which is noted above. Follow up in 6 weeks with labs as above Medical Decision Making: Problems: Moderate: New problem with uncertain prognosis High: Chronic illness with severe change Data: Unique test result(s) reviewed: 3+ Unique test(s) ordered: 1 Risk: High: High risk from testing/treatment Medical Decision Making Level: 5 - High SIGNATURE: Nina Lerner MD DATE of SERVICE: December 31, 2024 TIME of SERVICE: 4:00 PM documented in [facility] encounterBet[facility] Telephone encounter Note * Telephone Encounter - Cara Sanders LPN - 12/18/2024 12:40 PM EDT Reviewed provider's message with patient and she voiced understanding. Cara Sanders LPN [facility]05-14-[facility] Miscellaneous Notes* Telephone Encounter - Cara Sanders LPN - 12/18/2024 12:40 PM EDT Reviewed provider's message with patient and she voiced understanding. Cara Sanders LPN * Telephone Encounter - Cara Sanders LPN - 12/18/2024 12:38 PM EDT ----- Message from Erick Lemus MD sent at 12/18/2024 10:23 AM EDT ----- Bilateral diagnostic mammogram and ultrasounds show asymmetry in right and left breast which is probably benign. Recommend repeat diagnostic mammogram and US in 6 months as ordered. documented in this encounterBet[facility]25 Telephone encounter Note * Telephone Encounter - Cara Sanders LPN - 12/18/2024 12:38 PM EDT ----- Message from Erick Lemus MD sent at 12/18/2024 10:23 AM EDT ----- Bilateral diagnostic mammogram and ultrasounds show asymmetry in right and left breast which is probably benign. Recommend repeat diagnostic mammogram and US in 6 months as ordered. [facility] History of Present illness Narrative* Serena Gillespie RDMS - 12/18/2024 8:30 AM EDT Radiology Service Progress Note PATIENT NAME: Violet Chin DATE OF SERVICE: December 18, 2024 TIME: 2:13 PM PATIENT IDENTITY VERIFICATION COMPLETED USING TWO (2) IDENTIFIERS: Name and Date of confirmedby patient verbally. FALL SCREENING: Has the patient had 2 falls in the last year or 1 fall with injury or currently using an Ambulatory Assistive Device (Walker, Cane, Wheelchair, Crutches, etc.)? No PATIENT GENDER DATA: Assigned female at . status: : No status:NO. PATIENT RELEVANT IMPLANT DATA REVIEWED: Not Applicable PATIENT PRESENTS WITH AN IMPLANTABLE OR ATTACHED MOTOR COACH SUPERVISOR: No RADIOLOGY DEPARTMENT: Ultrasound PERIPHERAL IV DATA: Not applicable SIGNED BY: Serena Gillespie RDMS December 18, 2024 2:13 PM documented in this encounterBet[facility]05-14-2025 NoteHNO ID: [id number] Author: SERENA GILLESPIE RDMS Service: ? Author Type: [employer] Type: Progress Notes Filed: 12/18/2024 14:13 Note Text: Radiology Service Progress Note PATIENT NAME: Violet Chin DATE OF SERVICE: December 18, 2024 TIME: 2:13 PM PATIENT IDENTITY VERIFICATION COMPLETED USING TWO (2) IDENTIFIERS: Name and Date of confirmed by patient verbally. FALL SCREENING: Has the patient had 2 falls in the last year or 1 fall with injury or currently using an Ambulatory Assistive Device (Walker, Cane, Wheelchair, Crutches, etc.)? No PATIENT GENDER DATA: Assigned female at . status: : No status: NO. PATIENT RELEVANT IMPLANT DATA REVIEWED: Not Applicable PATIENT PRESENTS WITH AN IMPLANTABLE OR ATTACHED MOTOR COACH SUPERVISOR: No RADIOLOGY DEPARTMENT: Ultrasound PERIPHERAL IV DATA: Not applicable SIGNED BY: Serena Gillespie RDMS December 18, 2024 2:13 [facility]05-14-2025 History of Present illness Narrative* Radha Morrow RT(R) - 12/18/2024 8:00 AM EDT Radiology Service Progress Note PATIENT NAME: Violet Chin DATE OF SERVICE: December 18, 2024 TIME: 8:26 AM PATIENT IDENTITY VERIFICATION COMPLETED USING TWO (2) IDENTIFIERS: Name and Date of confirmedby patient verbally. FALL SCREENING: Has the patient had 2 falls in the last year or 1 fall with injury or currently using an Ambulatory Assistive Device (Walker, Cane, Wheelchair, Crutches, etc.)? No PATIENT GENDER DATA: Assigned female at . status: : No status:NO. PATIENT RELEVANT IMPLANT DATA REVIEWED: Not Applicable PATIENT PRESENTS WITH AN IMPLANTABLE OR ATTACHED MOTOR COACH SUPERVISOR: No RADIOLOGY DEPARTMENT: Mammography PERIPHERAL IV DATA: Not applicable SIGNED BY: RT Zeus(Ines) December 18, 2024 8:26 AM documented in this encounterBethesda [facility] Hospital05-14-2025 NoteHNO ID: [id number] Author: RADHA MORROW RT(R) Service: ? Author Type: Technologist Type: Progress Notes Filed: 12/18/2024 08:26 Note Text: Radiology Service Progress Note PATIENT NAME: Violet Chin DATE OF SERVICE: December 18, 2024 TIME: 8:26 AM PATIENT IDENTITY VERIFICATION COMPLETED USING TWO (2) IDENTIFIERS: Name and Date of confirmed by patient verbally. FALL SCREENING: Has the patient had 2 falls in the last year or 1 fall with injury or currently using an Ambulatory Assistive Device (Walker, Cane, Wheelchair, Crutches, etc.)? No PATIENT GENDER DATA: Assigned female at . status: : No status: NO. PATIENT RELEVANT IMPLANT DATA REVIEWED: Not Applicable PATIENT PRESENTS WITH AN IMPLANTABLE OR ATTACHED MOTOR COACH SUPERVISOR: No RADIOLOGY DEPARTMENT: Mammography PERIPHERAL IV DATA: Not applicable SIGNED BY: RT Zeus(Ines) December 18, 2024 8:26 [facility]05-01-2025 History of Present illness Narrative* John Bradley MD - 12/05/2024 3:00 PM EDT I have just spoke to Violet Chin for virtual postoperative visit after adrenalectomy for incidentaloma which turned to be pheochromocytoma on 11/20/24 by me. Despite having just borderline elevated urinary metanephrines. Violet Chin is recovering well after surgery with no concerns. Pain is controlled, incisions are healing. Denies nausea, vomiting. Having bowel function. We reviewed the final pathology together which revealed: FINAL DIAGNOSIS A. 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 11/26/2024 at 0949 EDT Diagnosis Comment This case is interpreted in collaboration with Dr. Ling Talavera. 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 As typical in adults, the neuroblastic component is somewhat difficult to classify using conventional pediatric criteria. 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 However, there are scattered areas of necrosis such that we cannot entirely exclude small foci representing nodular subtype with complete necrosis. Dr. Iván Lemon has also reviewed the n euroblastic component and concurs. The pheochromocytoma component of the neoplasm stains negative for SF1 and positive for chromogranin, GATA3, and synaptophysin. The sustentacular supporting cells stain positive for S100. The pheochromocytoma has histologic features which are associated with aggressive behavior with a PASS score of 7 (invasion into periadrenal adipose tissue - 2 points, diffuse/large nested growth - 2 points, tumor spindling - 2 points, profound nuclear pleomorphism - 1 point). The neoplasm comes to within 0.1 mm of the capsular margin, but no definitive tumor is present at the margin. Gross Description A. Adrenal Gland, Right, Resection Received in formalin labeled as adrenal gland is an adrenal gland measuring 10.5 x 6.5 x 3.4 cm and weighing 85.7 g. The surface is inked black. There is a palpable bulging mass measuring 5.2 x 4.2x 3.5 cm. The mass is sands-pink, well encapsulated and demonstrates an area of sands-pope to sands-yellow dusky discoloration composing approximately 60% of the cut surfaces. A recognizable portion of theadrenal gland is stretched along the aspect of the mass. The mass appears confined to the capsule. A photograph is obtained. Patient Coordinator sections are submitted as follows: A1 periphery of mass with possible extension beyond capsule (see photograph) A2 sales representative wire rope section of mass with necrosis A3-A4 mass with adjacent normal and black inked capsular soft tissue margin A5 additional section of mass with black inked capsular soft tissue margin A6 uninvolved adrenal gland MLG 11/21/24 10:03 AM Gross examination performed at [facility], [address] [place] [address] Postoperative labs were drawn on POD1 which showed cortisol of 14.2 and ACTH of 8.1. No stim test was done. Postoperative labs showed: Latest Ref Rng 11/29/2024 Epinephrine (PLCAT) <=330 pmol/L 102 Norepinephrine 1050 - 4800 pmol/L 2859 Dopamine <=240 pmol/L 146 Catecholamine Interpretation Plasma See Note Metanephrine, Plasma 12 - 67 pg/mL 27 Normetanephrine, Free Plasma 18 - 101 pg/mL 94 Pending urinary catecholamines and metanephrines. We discussed the postoperative plan: -PET-Dotate -Urinary metanephrines -Follow-up with Dr. Lerner 12/31/24 Thank you for allowing us to participate in the care of Violet Chin. If there are any questionsor concerns, please contact us. John Bradley MD I have communicated my name and active licensure. The patient's identity and physical location wereverified at the time of this visit. Either the patient or their legal sales representative wire rope has been informed of the risks and benefits of -- and alternatives to -- treatment through a remote evaluation andconsents to proceed with the evaluation remotely. documented in this encounterBethesda [facility] Hospital05-01-2025 NoteHNO ID: [id number] Author: JOHN BRADLEY MD Service: ? Author Type: Physician Type: Progress Notes Filed: 12/05/2024 11:11 Note Text: I have just spoke to Violet Chin for virtual postoperative visit after adrenalectomy for incidentaloma which turned to be pheochromocytoma on 11/20/24 by me. Despite having just borderline elevated urinary metanephrines. Violet Chin is recovering well after surgery with no concerns. Pain is controlled, incisions are healing. Denies nausea, vomiting. Having bowel function. We reviewed the final pathology together which revealed: FINAL DIAGNOSIS A. 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 11/26/2024 at 0949 EDT Diagnosis Comment This case is interpreted in collaboration with Dr. Ling Talavera. 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 As typical in adults, the neuroblastic component is somewhat difficult to classify using conventional pediatric criteria. 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 However, there are scattered areas of necrosis such that we cannot entirely exclude small foci representing nodular subtype with complete necrosis. Dr. Iván Lemon has also reviewed the neuroblastic component and concurs. The pheochromocytoma component of the neoplasm stains negative for SF1 and positive for chromogranin, GATA3, and synaptophysin. The sustentacular supporting cells stain positive for S100. The pheochromocytoma has histologic features which are associated with aggressive behavior with a PASS score of 7 (invasion into periadrenal adipose tissue - 2 points, diffuse/large nested growth - 2 points, tumor spindling - 2 points, profound nuclear pleomorphism - 1 point). The neoplasm comes to within 0.1 mm of the capsular margin, but no definitive tumor is present at the margin. Gross Description A. Adrenal Gland, Right, Resection Received in formalin labeled as adrenal gland is an adrenal gland measuring 10.5 x 6.5 x 3.4 cm and weighing 85.7 g. The surface is inked black. There is a palpable bulging mass measuring 5.2 x 4.2 x 3.5 cm. The mass is sands-pink, well encapsulated and demonstrates an area of sands-pope to sands-yellow dusky discoloration composing approximately 60% of the cut surfaces. A recognizable portion of the adrenal gland is stretched along the aspect of the mass. The mass appears confined to the capsule. A photograph is obtained. Patient Coordinator sections are submitted as follows: A1 periphery of mass with possible extension beyond capsule (see photograph) A2 sales representative wire rope section of mass with necrosis A3-A4 mass with adjacent normal and black inked capsular soft tissue margin A5 additional section of mass with black inked capsular soft tissue margin A6 uninvolved adrenal gland MLG 11/21/24 10:03 AM Gross examination performed at [facility], [address] [place] [address] Postoperative labs were drawn on POD1 which showed cortisol of 14.2 and ACTH of 8.1. No stim test was done. Postoperative labs showed: Latest Ref Rng 11/29/2024 Epinephrine (PLCAT) <=330 pmol/L 102 Norepinephrine 1050 - 4800 pmol/L 2859 Dopamine <=240 pmol/L 146 Catecholamine Interpretation Plasma See Note Metanephrine, Plasma 12 - 67 pg/mL 27 Normetanephrine, Free Plasma 18 - 101 pg/mL 94 Pending urinary catecholamines and metanephrines. We discussed the postoperative plan: -PET-Dotate -Urinary metanephrines -Follow-up with Dr. Lerner 12/31/24 Thank you for allowing us to participate in the care of Violet Chin. If there are any questions or concerns, please contact us. John Bradley MD I have communicated my name and active licensure. The patient's identity and physical location were verified at the time of this visit. Either the patient or their legal sales representative wire rope has been informed of the risks and benefits of -- and alternatives to -- treatment through a remote evaluation and consents to proceed with the evaluation remotely.[facility]04-30-2025 Telephone encounter Note* Telephone Encounter - Claudia Rodriguez RN - 12/04/2024 8:02 AM EDT DOTATATE Comments for Commercial Insurance Underwriter: Any Dotatate Site Will the patient need anesthesia: NO Treatment: N/A N/A Date of Last Treatment: N/A Date of Future Treatment: N/A, verify with patient Primary Insurance: [employer] Imaging: N/A Diagnosis: Adrenal mass (HCC) [E27.8] 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] Adrenal nodule (HCC) [E27.9] Pathology: 11-20-24 Adrenal gland, right, adrenalectomy: - Composite pheochromocytoma/peripheral neuroblastic tumor Labs: na Clinical Notes Reviewed: 11-05-24 Endo Date of last: na Additional Information/Imaging: N/A Is this the first Dotatate PET: Yes (Please schedule as requested by patient or office) Positive Scan Schedule at place of last (DOS) [facility] or [facility] Negative Scan Schedule at ANY Dotatate site requested Isotope used: [facility] [address] [place] [place]-[address] (NETSPOT) Dotatate Dotatate [id number] ([id number]) Gallium Dotatate (NetSpot) E27.8, E27.9, Auth#: Date Range: NPI: JOHN BRADLEY [id number] Member ID: Gene [id number] Site/Contact: Case/Ref#: Notes: Route to: P PET DIETITIAN ASSISTANT [facility]04-30-2025 Miscellaneous Notes* Telephone Encounter - Claudia Rodriguez RN - 12/04/2024 8:02 AM EDT DOTATATE Comments for Commercial Insurance Underwriter: Any Dotatate Site Will the patient need anesthesia: NO Treatment: N/A N/A Date of Last Treatment: N/A Date of Future Treatment: N/A, verify with patient Primary Insurance: Gene GOODWIN Imaging: N/A Diagnosis: Adrenal mass (HCC) [E27.8] 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] Adrenal nodule (HCC) [E27.9] Pathology: 11-20-24 Adrenal gland, right, adrenalectomy: - Composite pheochromocytoma/peripheral neuroblastic tumor Labs: na Clinical Notes Reviewed: 11-05-24 Endo Date of last: na Additional Information/Imaging: N/A Is this the first Dotatate PET: Yes (Please schedule as requested by patient or office) Positive Scan Schedule at place of last (DOS) [facility] or [facility] Negative Scan Schedule at ANY Dotatate site requested Isotope used: [facility] [address] [place] GA-68 (NETSPOT) Dotatate Dotatate [id number]/[id number] (54cCi) Gallium Dotatate (NetSpot) E27.8, E27.9, Auth#: Date Range: MD METZ: JOHN BRADLEY [id number] Member ID: Gene [id number] Site/Contact: Case/Ref#: Notes: Route to: P PET DIETITIAN ASSISTANT [facility] * Telephone Encounter - Melanie Palomino - 12/04/2024 7:25 AM EDT This form is used for MAIN CAMPUS APPOINTMENTS ONLY. Is this request for a [facility] PET scan appointment? Yes: Parent Partner: Melanie Palomino Who do we call to schedule this appointment? Patient Requesting Staff Dr. John Hopper Area Code + Phone/Pager: TIMBO Romero PET Orders (A delay in scheduling will result if the orders are not present at time of review): Internal ADDITIONAL ACTION MAY BE REQUIRED IF PATIENTS OON INSURANCE OR SELF PAY COVERAGE HAS NOT BEEN CLEARED FOR REQUESTED APPOINTMENT. Scheduling: DAWNA: As soon as insurance will allow What account will this PET appointment be linked to? P/F Type of PET: Oncology: Are there additional diagnostic CT scans required to be done at time of PET scan? No Is the request for a PET MR ? No What account will diagnostic testing appointment be linked to? P/F Will the patient need anesthesia? NO Send requests to P [facility] REVIEW [facility] documented in [facility]-30-[facility] Telephone encounter Note * Telephone Encounter - Melanie Palomino - 12/04/2024 7:25 AM EDT This form is used for MAIN CAMPUS APPOINTMENTS ONLY. Is this request for a [facility] PET scan appointment? Yes: Parent Partner: Melanie Palomino Who do we call to schedule this appointment? Patient Requesting Staff Dr. John Hopper Area Code + Phone/Pager: TIMBO Romero PET Orders (A delay in scheduling will result if the orders are not present at time of review): Internal ADDITIONAL ACTION MAY BE REQUIRED IF PATIENTS OON INSURANCE OR SELF PAY COVERAGE HAS NOT BEEN CLEARED FOR REQUESTED APPOINTMENT. Scheduling: DAWNA: As soon as insurance will allow What account will this PET appointment be linked to? P/F Type of PET: Oncology: Are there additional diagnostic CT scans required to be done at time of PET scan? No Is the request for a PET MR ? No What account will diagnostic testing appointment be linked to? P/F Will the patient need anesthesia? NO Send requests to P [facility] REVIEW [facility]04-17-[facility]25 NoteHNO ID: [id number] Author: RUPESH FLORES MD Service: Endocrine Surgery Author Type: Physician Type: Progress Notes Filed: 11/21/2024 06:56 Note Text: ENDOCRINE SURGERY INPATIENT PROGRESS NOTE Name: Violet Chin Date: November 21, 2024 POD# 1 S/P Laparoscopic right adrenalectomy S: Recovering appropriately. No acute events overnight Persistent hypertension Tolerated diet Passed some gas O: PHYSICAL EXAM: BP 170/75 Pulse 63 Temp 36.8 ?C (98.2 ?F) (Oral) Resp 20 SpO2 97% General Appearance: In no acute distress. Well appearing. Neuro: Alert and oriented x3. Neck: NO abnormal findings. Abdomen: Soft. Non-distended. Tender over the right upper quadrant. No guarding or rebound. Incisions are clean/dry and intact Extremities: Warm and well perfused. Intake/Output Summary (Last 24 hours) at 11/21/2024 0651 Last data filed at 11/21/2024 0639 Gross per 24 hour Intake 2750 ml Output 2310 ml Net 440 ml ASSESSMENT: Violet Chin is POD1 and recovering well. PLAN of Care: - Regular diet - No SQH - SCDs - Multimodal pain regimen, minimize narcotics - Will wait for AM Cortisol to decide on ACTH STIM Test - Encourage mobilization - Incentive spirometer - Continue BP home meds - Monitor in [facility] - Possible discharge today in the afternoon after complete lab results - Thank you Plan of care discussed with: Provider, RN, Patient. Rupesh Flores MD [phone] Clinical Associate Endocrine and Metabolism [place], [facility] SurgeryK[facility]04-16-2025 NoteHNO ID: [id number] Author: ALBER JAMIL MD Service: Endocrine Surgery Author Type: Physician Type: Progress Notes Filed: 11/20/2024 18:50 Note Text: ENDOCRINE SURGERY INPATIENT PROGRESS NOTE Name: Violet Chin Date: November 20, 2024 POD# 0 s/p right laparoscopic adrenalectomy S: Postoperative check was done and the patient is recovering appropriately. No dysphagia. No dysphonia. Endorses appropriate incisional pain. Drinking water. Has some hiccups. O: PHYSICAL EXAM: BP 133/65 Pulse 70 Temp 36.4 ?C (97.5 ?F) (Oral) Resp 14 SpO2 96% General Appearance: In no acute distress. Well appearing. Neuro: Alert and oriented x3. Neck: supple Abdomen: Soft. Incisions are c/d/I, appropriately tender to palpation, no guarding or rebound tenderness Extremities: Warm and well perfused. Intake/Output Summary (Last 24 hours) at 11/20/2024 1848 Last data filed at 11/20/2024 1800 Gross per 24 hour Intake 1650 ml Output 810 ml Net 840 ml ASSESSMENT: Violet Chin is POD 0 from right laparoscopic adrenalectomy and recovering well. PLAN of Care: - Multimodal pain regimen, minimize narcotics - Regular diet - Will get cortisol and ACTH in the morning, depending on results will get ACTH stim test - No SQH - SCDs - Monitor overnight in the surgical floor Alber Jamil MD [phone] Clinical Associate Endocrine and Metabolism [place], Department of Endocrine SurgeryK[facility]04-16-2025 NoteHNO ID: [id number] Author: FLORI UNGER APRN.COMPOUND MIXER Service: ? Author Type: Nurse Vat Washer Type: Anesthesia Procedure Notes Filed: 11/20/2024 15:51 Note Text: ANESTHESIOLOGY PROCEDURE NOTE A-Line General Information Procedure Start Time/Medication Administration: 11/20/2024 1:33 PM Procedure End Time: 11/20/2024 1:34 PM Patient location during procedure: OR Indications: continuous blood pressure monitoring Staffing COMPOUND MIXER: Flori Unger APRN.COMPOUND MIXER Performed by: COMPOUND MIXER Preparation Sterility Preparation: hand hygiene performed prior to procedure, sterile gloves, drapes, and procedure tray, surgical cap used, mask used, sterile drape used during line insertion, skin prep agent completely dried prior to procedure Site Prep: Chloraprep Procedure Details Catheter Type: arterial line Catheter Size: 20 G Catheter Length: 5.25 in Micropuncture Kit Used: No Guidewire Used: Yes Guidewire Removed Intact: Yes Laterality: left Site: radial artery Ultrasound Guided: No Line Secured: tape and occlusive biodressing Events Events: patient tolerated procedure well with no complications SIGNATURE: Flori Unger APRN.CRNA PATIENT NAME: Violet Chin DATE: November 20, 2024 TIME: 3:51 PM CSN: [id number] Health Preble04-16-2025 NoteHNO ID: [id number] Author: FLORI UNGER APRN.COMPOUND MIXER Service: ? Author Type: Nurse Vat Washer Type: Anesthesia Procedure Notes Filed: 11/20/2024 15:50 Note Text: ANESTHESIOLOGY PROCEDURE NOTE PIV General Information Procedure Start Time/Medication Administration: 11/20/2024 1:35 PM Procedure End Time: 11/20/2024 1:36 PM Patient Location: OR Staffing Anesthesiologist: Brenda Tariq DO Performed by: anesthesiologist Preparation Sterility Preparation: hand hygiene performed prior to procedure, surgical cap used, mask used, skin prep agent completely dried prior to procedure Site Prep: alcohol Procedure Details Indication: need for IV access Needle Size/Type: 18 gauge angiocath Orientation: Right Location: Hand Imaging Guidance Used: No SIGNATURE: Flori Unger APRN.CRNA PATIENT NAME: Violet Chin DATE: November 20, 2024 TIME: 3:50 PM CSN: [id number] Health Preble04-16-2025 NoteHNO ID: [id number] Author: FLORI UNGER APRN.CRNA Service: ? Author Type: Nurse Vat Washer Type: Anesthesia Procedure Notes Filed: 11/20/2024 14:29 Note Text: ANESTHESIOLOGY PROCEDURE NOTE Airway General Information Procedure Start Time/Medication Administration: 11/20/2024 1:27 PM Procedure End Time: 11/20/2024 1:28 PM Patient location during procedure: OR Patient identity confirmed: arm band and patient Staffing COMPOUND MIXER: Flori Unger APRN.COMPOUND MIXER Performed by: ROSE Indications and Patient Condition Indications for airway management: anesthesia Preoxygenated: yes anesthesia circuit Patient position: sniffing Method: asleep Cricoid Pressure: No Difficult Mask: No Airway Accessory: oral airway Final Airway Details Final airway type: endotracheal airway Final Endotracheal Airway: ETT Cuffed: yes Successful intubation technique: video laryngoscopy Devices used: Delaney Endotracheal tube insertion site: oral Blade size: #3 ETT size (mm): 7.0 Measured from: lips Measurement (cm): 21 Placement verified by: capnometry Cormack-Lehane Classification: grade I - full view of glottis Number of attempts at approach: 1 Failed airway: no Unrecognized esophageal intubation: no Airway not difficult SIGNATURE: Flori Unger APRN.CRNA PATIENT NAME: Violet Chin DATE: November 20, 2024 TIME: 2:29 PM CSN: [id number] Health [facility]ble04-11-2025 History of Present illness Narrative* Reef Rylie Fitzgerald, RT(R) - 11/15/2024 1:00 PM EDT Radiology Service Progress Note DATE OF SERVICE: November 15, 2024 TIME: 3:04 PM PATIENT IDENTITY VERIFICATION COMPLETED USING TWO (2) STANDARD IDENTIFIERS: Name and Date of confirmed by patient verbally. FALL SCREENING: Has the patient had 2 falls in the last year or 1 fall with injury or currently using an Ambulatory Assistive Device (Walker, Cane, Wheelchair, Crutches, etc.)? No PATIENT GENDER DATA: Assigned female at . status: : No status:NO. PATIENT RELEVANT IMPLANT DATA REVIEWED: Yes PATIENT PRESENTS WITH AN IMPLANTABLE OR ATTACHED MOTOR COACH SUPERVISOR: No ALLERGIES: Reviewed and unchanged CONTRAST ALLERGY: NO. EXAM: CT -CONTRAST INDUCED NEPHROPATHY RISK FACTORS: Not applicable CREATININE: Creatinine Date Value Ref Range Status 11/08/2024 0.69 0.58 - 0.96 mg/dL Final 10/14/2024 0.73 0.58 - 0.96 mg/dL Final 02/04/2021 0.60 0.58 - 0.96 mg/dL Final Estimated Glomerular Filtration Rate Date Value Ref Range Status 11/08/2024 100 >=60 mL/min/1.73m Final Comment: Estimated Glomerular Filtration Rate (eGFR) is calculated using the 2020 CKD-EPI creatinine equation. This equation utilizes serum creatinine, sex, and age as parameters. The creatinine assay has traceable calibration to isotope dilution- mass spectrometry. Refer to KDIGO guidelines for clinical interpretation. In patients with unstable renal function, e.g. those with acute kidney injury, the eGFRmay not accurately reflect actual GFR. eGFR- Date Value Ref Range Status 02/04/2021 >60 Final P.O.C.T. RESULTS: POC done: Yes, See Lab Tab November 15, 2024 TREATMENT: N/A PERIPHERAL IV DATA: Ambulatory: A peripheral IV was started in the Left antecubital site with a Angio cath: 22 gauge. RADIOLOGY DEPARTMENT: CT; Exam(s) Completed: Chest SIGNATURE: REJI Santoro) PATIENT NAME: Violet Chin DATE: November 15, 2024 TIME: 3:04 PM documented in this encounterBethesda [facility]04-11-2025 NoteHNO ID: [id number] Author: RYLIE PETIT RT(R) Service: ? Author Type: [place] [employer] Type: Progress Notes Filed: 11/15/2024 15:04 Note Text: Radiology Service Progress Note DATE OF SERVICE: November 15, 2024 TIME: 3:04 PM PATIENT IDENTITY VERIFICATION COMPLETED USING TWO (2) STANDARD IDENTIFIERS: Name and Date of confirmed by patient verbally. FALL SCREENING: Has the patient had 2 falls in the last year or 1 fall with injury or currently using an Ambulatory Assistive Device (Walker, Cane, Wheelchair, Crutches, etc.)? No PATIENT GENDER DATA: Assigned female at . status: : No status: NO. PATIENT RELEVANT IMPLANT DATA REVIEWED: Yes PATIENT PRESENTS WITH AN IMPLANTABLE OR ATTACHED MOTOR COACH SUPERVISOR: No ALLERGIES: Reviewed and unchanged CONTRAST ALLERGY: NO. EXAM: CT -CONTRAST INDUCED NEPHROPATHY RISK FACTORS: Not applicable CREATININE: Creatinine Date Value Ref Range Status 11/08/2024 0.69 0.58 - 0.96 mg/dL Final 10/14/2024 0.73 0.58 - 0.96 mg/dL Final 02/04/2021 0.60 0.58 - 0.96 mg/dL Final Estimated Glomerular Filtration Rate Date Value Ref Range Status 11/08/2024 100 >=60 mL/min/1.73m? Final Comment: Estimated Glomerular Filtration Rate (eGFR) is calculated using the 2020 CKD-EPI creatinine equation. This equation utilizes serum creatinine, sex, and age as parameters. The creatinine assay has traceable calibration to isotope dilution-mass spectrometry. Refer to KDIGO guidelines for clinical interpretation. In patients with unstable renal function, e.g. those with acute kidney injury, the eGFR may not accurately reflect actual GFR. eGFR- Date Value Ref Range Status 02/04/2021 >60 Final P.O.C.T. RESULTS: POC done: Yes, See Lab Tab November 15, 2024 TREATMENT: N/A PERIPHERAL IV DATA: Ambulatory: A peripheral IV was started in the Left antecubital site with a Angio cath: 22 gauge. RADIOLOGY DEPARTMENT: CT; Exam(s) Completed: Chest SIGNATURE: RT Maude(Ines) PATIENT NAME: Violet Chin DATE: November 15, 2024 TIME: 3:04 [facility]04-04-2025 History of Present illness Narrative* Jennifer Gonzalez RT(R) - 11/08/2024 3:20 PM EDT Radiology Service Progress Note PATIENT NAME: Violet Chin DATE OF SERVICE: November 08, 2024 TIME: 3:16 PM PATIENT IDENTITY VERIFICATION COMPLETED USING TWO (2) IDENTIFIERS: Name and Date of confirmedby patient verbally. FALL SCREENING: Has the patient had 2 falls in the last year or 1 fall with injury or currently using an Ambulatory Assistive Device (Walker, Cane, Wheelchair, Crutches, etc.)? No PATIENT GENDER DATA: Assigned female at . status: : No status:NO. PATIENT RELEVANT IMPLANT DATA REVIEWED: Not Applicable PATIENT PRESENTS WITH AN IMPLANTABLE OR ATTACHED MOTOR COACH SUPERVISOR: No RADIOLOGY DEPARTMENT: General X-ray: Exam(s) Completed: Chest X-Ray PERIPHERAL IV DATA: Not applicable SIGNED BY: RT Yue(Ines) November 08, 2024 3:16 PM documented in this encounterBethesda North Hospital04-04-2025 NoteHNO ID: [id number] Author: JENNIFER GONZALEZ RT(R) Service: Radiology Author Type: Technologist Type: Progress Notes Filed: 11/08/2024 15:23 Note Text: Radiology Service Progress Note PATIENT NAME: Violet Chin DATE OF SERVICE: November 08, 2024 TIME: 3:16 PM PATIENT IDENTITY VERIFICATION COMPLETED USING TWO (2) IDENTIFIERS: Name and Date of confirmed by patient verbally. FALL SCREENING: Has the patient had 2 falls in the last year or 1 fall with injury or currently using an Ambulatory Assistive Device (Walker, Cane, Wheelchair, Crutches, etc.)? No PATIENT GENDER DATA: Assigned female at . status: : No status: NO. PATIENT RELEVANT IMPLANT DATA REVIEWED: Not Applicable PATIENT PRESENTS WITH AN IMPLANTABLE OR ATTACHED MOTOR COACH SUPERVISOR: No RADIOLOGY DEPARTMENT: General X-ray: Exam(s) Completed: Chest X-Ray PERIPHERAL IV DATA: Not applicable SIGNED BY: RT Yue(R) November 08, 2024 3:16 [facility]04-04-2025 Instructions* Patient Instructions* Gurvinder Garcia, CHRISTOPH.LAND PLANNER - 11/08/2024 2:36 PM EDT Images from the original note were not included. [facility] PATIENT PREOPERATIVE INSTRUCTIONS John Bradley, * has scheduled you for your procedure at this surgery center: [facility] [place] Scheduling Office: [phone] --[address] [place] [address]. Please read below carefully for your personalized instructions. Dietary Restrictions: - No solid food after midnight. - You may have 12 ounces of clear liquids (water, clear juices such as apple juice or gatorade, carbonated beverages, clear tea, black coffee, jello) until 2 hours before scheduled arrival at facility. Medications: Unless instructed differently below, stay on all of your medications until your surgery. If you start any new medications after today's visit, please contact your surgeon. Pre-Surgery Med Instructions Medication Instructions lisinopril-hydroCHLOROthiazide (ZESTORETIC) 10-12.5 mg per tablet If you normally take this medication in the morning, take the morning of surgery. sertraline (ZOLOFT) 100 mg tablet If you normally take this medication in the morning, take the morning of surgery. pantoprazole DR (PROTONIX) 40 mg tablet If you normally take this medication in the morning, take the morning of surgery. dexAMETHasone (DECADRON) 1 mg tablet If you normally take this medication in the morning, take the morning of surgery. buPROPion SR (WELLBUTRIN SR) 150 mg 12 hr tablet If you normally take this medication in the morning, take the morning of surgery. atorvastatin (LIPITOR) 80 mg tablet If you normally take this medication in the morning, take the morning of surgery. If you start any new medications after today's visit, please contact the surgeon's office. If you are currently using a alzm-uvq-lees injectable or oral medication for diabetes or weight loss such as Dulaglutide (Trulicity), Exenatide (Byetta, Bydureon), Liraglutide (Victoza, Saxenda), Semaglutide (Ozempic, Wegovy, Rybelsus), or Tirzepatide (Mounjaro), the medicine should be stopped at least 7 days before surgery. These medicines can cause food to remain in your stomach for a very longtime and increase the risks from surgery and anesthesia. Not stopping the medication for a long enough time may result in your surgery being rescheduled. Blood Thinning Medications: - Stop NSAIDS (Ibuprofen, Advil, Aleve, Motrin, Celebrex, Mobic, etc.) 7 days before surgery, as directed by your surgeon. - Stop Aspirin 7 days before surgery, as directed by your surgeon. - Stop ALL herbal and dietary supplements 7 days before surgery. - You may take Tylenol (Acetaminophen) or any of your pain medications that do not contain aspirin or NSAIDS as needed. Important Reminders: - Candy, mints, and tobacco products are NOT permitted the morning of surgery. - Hearing aids, dentures and glasses may be worn the morning of surgery. - NO jewelry, body piercings, makeup, hairpins or contacts are to be worn the day of surgery. If you develop symptoms such as a fever, cold, or flu, or have other changes to your health within TWO DAYS of scheduled surgery or the morning of surgery, please contact the surgery center above. Personal Belongings: -Please have photo ID and insurance cards. -If you do not have a copy of advance directives on file with us, please bring a copy with you on the day of surgery. - Leave ALL valuables and money at home or with family members. - Please bring high-quality footwear, such as sneakers, to the hospital for ambulating post-surgery. For Outpatient Procedures: - YOU MUST HAVE A RESPONSIBLE RADIOLOGICAL HEALTH SPECIALIST TAKE YOU HOME. A BONSAI TENDER OR GEOLOGICAL E LOGGER CANNOT BE MADE A RESPONSIBLE RADIOLOGICAL HEALTH SPECIALIST. - We recommend that a responsible person stays with you overnight to take care of you. - You cannot stay in a hotel alone after outpatient surgery. You will not be permitted to have yoursurgery, if you do not have someone to take care of you. Arrival Time for Surgery: - To obtain your arrival time for surgery, call your physician's office the day before your surgery. - If you have received different instructions about finding out your arrival time from your surgeon, please follow those instructions. - If your surgery is scheduled for Monday, call the Monday before. Your surgeon s enterprise account manager will tell you what time to call the office. - If you have not reached the departmental enterprise account manager by 5 P.M., call [phone] after 5 P.M. the day before your surgery. Please be aware that emergency situations arise, which may delay or change your surgical time. If this happens, we will notify you as soon as possible and regret any inconvenience. If you already have an Advance Directive, please fax a copy to [phone] or email to for it to be added to your chart. If you do not have an Advance Directive, you can find the appropriate form and more information at [email or web address]. We recommend that youcomplete the Advance Directive form found on the website and bring it with you the day of your surgery. It can be witnessed and scanned into your chart that day. Gurvinder Garcia APRN.REEMA documented in this encounterBethesda [facility]04-04-2025 History and physical note * Gurvinder Garcia APRN.CNP - 11/08/2024 2:33 PM EDT Images from the original note were not included. [facility] Pre[facility]Anesthesia [facility]ation [facility] HISTORY AND PHYSICAL EXAMINATION SERVICE DATE: 11/08/2024 SERVICE TIME: 11:11 AM PRIMARY CARE PHYSICIAN: Erick Lemus MD Assessment Patient has the following medical conditions which may affect rosalie-operative course: Essential hypertension Assessment: controlled on rx Last 14 BP Last 14 Encounter BP Readings: Date: BP: 11/08/2024 140/84 11/05/2024 165/88 06/28/2024 158/92 05/15/2024 138/80 01/17/2024 112/78 11/14/2023 118/74 04/13/2023 118/78 02/18/2022 116/76 02/04/2021 138/88 10/16/2019 122/78 04/15/2019 148/88 03/15/2019 122/76 09/28/2018 131/84 07/02/2018 116/80 Mixed hyperlipidemia Assessment: c/w statin Smoker Assessment: 1ppd/30+ years, down to 0.5ppd, denies dx COPD/asthma, does admit to daily productive cough, worse the past several days stating she feels like she has an URI, /occasional wheezing, PFT/CXR ordered Anxiety with depression Assessment: stable on rx per pt Marijuana use Assessment: flower, 1-2x/week, reviewed to withhold prior to surgery, pt verbalized understanding. Obesity, Class I, BMI 30-34.9 Assessment: Body mass index is 32.61 kg/m . Prediabetes Assessment: diet controlled, Hemoglobin A1C (%) Date Value 10/14/2024 6.0 Liver cyst Assessment: multiple seen on CT 04/2024 Polypoid adenoma Assessment: per CT 04/2024 with GI consult recommended ANESTHESIA FINDINGS: Intubation History: No history of difficult intubation Significant Anesthesia Considerations: none Airway History: No history of difficult airway Nelson Activity Status Index: METS: Climb a flight of stairs or walk up a hill (5.50 METs) DASI Score: 5.5 Patient denies any chest pain or undue shortness of breath with the above physical activity. Clinical Frailty Scale: 3. Well, with treated comorbid disease STOP-Bang Score: Has or is being treated for high blood pressure Patient over 50 years old Has a large neck Denies snoring loudly Denies feeling tired, fatigued, or sleepy during the daytime Has not been observed to stop breathing or choking/gasping during sleep BMI less than or equal to 35 kg/m^2 Non-male patient STOP-Bang Score: 3 [id number] Score: Age: <65 Sex: female CHF history: No Hypertension history: Yes Stroke/TIA/thromboembolism history: No Vascular disease history: No Diabetes history: No [id number] Score: 2 ARISCAT Score: Age: 51-80 Preoperative SpO2: >=96% Preoperative anemia: No Surgical incision: peripheral Duration of surgery: >3 hrs Emergency procedure: No ARISCAT Score: I - PHYSICAL EVALUATION AIRWAY Patient intubated: No. Tracheostomy tube not present Mallampati: III. TM distance: >3 FB. Neck ROM: full ROM without neurological symptoms. Mouth opening: adequate. Short neck: no. Thick neck: yes Carlos present: no Lip Bite Test: I Microretrognathia/Micronagthia/Recessed Chin: No DENTAL Dentures, upper: complete. Dentures, lower: complete. II - ANESTHESIA PLAN Anesthetic Plan: other Beta Piper Monitoring Plan Post Procedure Analgesic Plan Prepared for Surgery: optimally prepared for surgery, pending [see comment]. Spirometry pending 11/15/2024 CONSULTS: Patient does not require consults for optimization at this time Planned Anesthetic: other anesthesia choice The Following Tests/Procedures Have Been Initiated: Orders Placed This Encounter XR CHEST 2V FRONTAL/LAT Standing Status: Future Number of Occurrences: 1 Expected Date: 11/08/2024 Expiration Date: 12/08/2025 ADULT - SPIROMETRY WITH DILATOR IF OBSTRUCTED Standing Status: Future Expected Date: 11/08/2024 Expiration Date: 12/08/2025 Scheduling Instructions: Please call to schedule, cancel, or change an appointment. Adults [phone] Pediatrics [phone] Should this patient be seen in a Pediatric Lab?: No REASON FOR VISIT: Violet Chin is a 59 year old female who is scheduled for Procedure(s): LAPAROSCOPIC ADRENALECTOMY (Right) at the request of Dr. John Bradley for consultation. My final recommendation will be communicated back to the requesting physician by way of shared medical record or letter. Subjective The patient has the following: COVID-19 Immunization Status Current Care Gaps Covid-19 Vaccine ( season) Overdue since 04/07/2024 04/13/2023 Postponed until 04/13/2024 by Erick Lemus MD (Declined at this time) 04/14/2021 Imm Admin: COVID-19 original vaccine, age 12+ yr, monovalent (PFIZER- BIONTECH - PURPLE TOP) 02/04/2021 Imm Admin: COVID-19 original vaccine, age 12+ yr, monovalent (PFIZER- BIONTECH - PURPLE TOP) Only the first 3 history entries have been loaded, but more history exists. CHIEF COMPLAINT: Pre-op exam HPI: Violet Chin is a 59 year old seen for PAC due to scheduled above surgery because of an adrenal lesion. 11/05/2024, Dr. John Bradley HPI: As you know, Violet Chin is a 59 year old female with a history of anxiety, depression, HTN, HLD, obesity BMI 34, preDM, marijuana and tobacco use who was incidentally found to have bilateral adrenal mass on CT abdomen done for abdominal pain. Subsequent dedicated adrenal CT showed 4.8 cm right adrenal mass with a pre contrast attenuation of 26 HU and washout of 17%. Adrenal lesion on the left measures 3.3 cm and has pre contrast attenuation of -6 HU with additional 3.3 cm with pre contrast attenuation 0 HU. She has a low ACTH (10. 3 nl 7.2-63.3 pg/mL), low DHEAS (37.3 nl 18.9-205 mcg/dL), high cortisol (13.7 <1.8mc/dL), normal renin/aldosterone, normal urine catecholamines and borderline elevated urine metanephrines. She has a Hgb A1C of 6 and no DEXA has been done. She was admitted for abdominal pain at the time of the diagnosis and found to have peptic ulcer disease. Surgical history is significant for , tubal ligation, laminectomy and eye surgery. Associated symptoms: Pain resolved. No florid hypercortisolism symptoms. Family history of endocrine tumors: No. History of previous cancer: No Pertinent medications (blood thinners, calcium, biotin, diuretics, lithium): No REVIEW OF SYSTEMS: General: No weight loss, malaise or fevers. Neurological: No history of TIA's, stroke, BOTTLED BEVERAGE INSPECTOR tumor, impaired sensorium, hemiplegia, paraplegia orquadraplegia. No neurological symptoms or problems. Respiratory: Positive for: tobacco use (0.5ppd) and URI < 2 weeks. Negative for: asthma, COPD, current cough, dyspnea, pneumonia within 6 weeks and obstructive sleep apnea. Cardiovascular: Positive for: hyperlipidemia (on rx) and hypertension (on rx) Negative for: abdominal aortic aneurysm, AICD/PPM, angina, anticoagulation therapy, arrhythmia, atrial fibrillation, CAD, chest pain, CHF, congenital heart defect, DVT/PE, recent PA, murmur/valvular heart disease, PTCA, PVD, open heart surgery and valve surgery. GI: No history of GI symptoms or problems. No history of esophageal varices, recent ascites, or ETOH greater than 2 drinks per day. : No history of dysuria, frequency or incontinence, stones or chronic kidney disease. No difficulty urinating, nocturia > 1 time per night or hematuria. 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 Endocrine: See HPI. Hematology: No history of bleeding or clotting disorder. Patient is not taking anti-coagulation or platelet medications. No history of hematological symptoms or problems. Oncology: No history of CA metastasis, chemo within 30 days, or radiotherapy within 90 days. No history of oncological symptoms or problems. Psych: Positive for: anxiety (on rx), depression (on rx) and Marijuana Use. Product type: Flower. Route of administration: Inhalation. Frequency: 1-2 times per week. Duration used: 1 years or more. Musculoskeletal: Negative for joint pain or swelling, back pain or muscle pain. Skin: Negative for lesions, rash and itching. PAST MEDICAL HISTORY Diagnosis Date Anxiety and depression History of COVID-19 08/2020 HTN (hypertension) Lumbar herniated disc s/p laminectomy-pain free Marijuana use Mixed hyperlipidemia Obesity (BMI 30-39.9) Prediabetes Tobacco use PAST SURGICAL HISTORY Procedure Laterality Date SNGL 1986 SNGL 1987 SNGL 2000 EYE SURGERY HX 1972 correct lazy eye LAMINECTOMY W/O FFD 08/08 VERT SEG LUMBAR 2007 TUBAL LIGATION 2000 FAMILY HISTORY Problem Relation Age of Onset COPD Mother No Known Problems Father No Known Problems Sister No Known Problems Sister No Known Problems Brother No Known Problems Brother Cancer Maternal Grandmother No Known Problems Daughter No Known Problems Daughter No Known Problems Son Adrenal Insufficiency No Family History Social History Tobacco Use Smoking status: Every Day Current packs/day: 1.00 Average packs/day: 1 pack/day for 30.0 years (30.0 ttl pk-yrs) Types: Cigarettes Passive exposure: Current Smokeless tobacco: Never Tobacco comments: 12 cigarettes/ DAY Vaping Use Vaping status: Never Used Substance Use Topics Alcohol use: No Drug use: Not Currently Types: Marijuana Comment: occasionally- 2 times a year Prior to Admission medications as of 11/11/24 1101 Medication Sig Last Dose Taking lisinopril-hydroCHLOROthiazide (ZESTORETIC) 10-12.5 mg per tablet Take 1 tablet by mouth once daily. Yes sertraline (ZOLOFT) 100 mg tablet Take 1 tablet by mouth once daily. Yes pantoprazole DR (PROTONIX) 40 mg tablet Take 1 tablet by mouth every 12 hours. Yes dexAMETHasone (DECADRON) 1 mg tablet Take the tablet at 11 pm and go for labs the next morning on fasting at 8 am Yes buPROPion SR (WELLBUTRIN SR) 150 mg 12 hr tablet Take 1 tablet by mouth two times a day. Yes atorvastatin (LIPITOR) 80 mg tablet Take 1 tablet by mouth daily at bedtime. For cholesterol. Yes No medication comments found. ALLERGIES Allergen Reactions Prozac [Fluoxetine] GI Upset Objective PHYSICAL EXAM: General: alert and oriented (x3), healthy appearance and obese. Pertinent negatives noted - not distressed. Skin: normal color, no rash or lesions. HEENT: EOM intact and pupils equal round. Pertinent negatives noted - no carotid bruit. Cardiovascular: regular rate and rhythm, normal S1 and S2, no rub, murmurs, or gallop. Respiratory: normal breath sounds, no wheezes or crackles. No chest wall deformity or tenderness. Abdomen: soft. Pertinent negatives noted - not tender. Extremities: no deformity, no edema or tenderness, no joint swelling or clubbing. Neurological: normal cognition and motor skills. Gait normal. No weakness or sensory deficit. PAIN ASSESSMENT: VITALS: BP 140/84 Pulse 81 Temp (Src) 97 (Temporal) Resp 14 Ht 5' 4 (1.63m) Wt 190 lb (86.2kg) SpO2 97% BMI 32.60 kg/(m^2). Diagnostic tests reviewed for today's visit: Lab Value Units Date High Low HB 13.5 g/dL 11/08/2024 15.5 11.5 HCT 40.2 % 11/08/2024 46.0 36.0 WBC 5.74 k/uL 11/08/2024 11.00 3.70 PLT 218 k/uL 11/08/2024 400 150 NA 131 mmol/L 11/08/2024 144 136 K 4.2 mmol/L 11/08/2024 5.1 3.7 GLUC 89 mg/dL 11/08/2024 99 74 BUN 17 mg/dL 11/08/2024 21 7 CREAT 0.69 mg/dL 11/08/2024 0.96 0.58 PTSEC No results within date range. INR No results within date range. APTT No results within date range. ALT 9 U/L 10/14/2024 38 7 AST 13 U/L 10/14/2024 35 13 TBILI 0.4 mg/dL 10/14/2024 1.3 0.2 TSH No results within date range. Lab Value Units Date High Low HCGQT No results within date range. UHCG No results within date range. HCG, BODY* No results within date range. Lab Value Units Date High Low ABORHD No results within date range. ABSCREEN No results within date range. Hemoglobin A1C (%) Date Value 10/14/2024 6.0 Recent Results (from the past 8760 hours) ECG COMPLETE Collection Time: 11/08/24 3:22 PM Result Value Ventricular Rate 70 Atrial Rate 70 P-R Interval 144 QRS Duration 94 QT Interval 412 QTC Calculation (Bazett) 444 Calculated P Rowland 9 Calculated R Rowland 67 Calculated T Rowland 5 Impression NORMAL SINUS RHYTHM NORMAL ECG No results found for this or any previous visit (from the past 43004 hours). Instructions Given to Patient: Instructions located in the after visit summary. Patient given verbal and written preop instructions and voices comprehension and compliance. SIGNATURE: Gurvinder Garcia APRN.CNP PATIENT NAME: Violet Chin DATE: November 08, 2024 TIME: 2:33 PM PAGER/CONTACT #: [facility]04-04-2025 History and physical note* Gurvinder Garcia APRN.CNP - 11/08/2024 2:33 PM EDT Images from the original note were not included. [facility] HISTORY AND PHYSICAL EXAMINATION SERVICE DATE: 11/08/2024 SERVICE TIME: 11:11 AM PRIMARY CARE PHYSICIAN: Erick Lemus MD Assessment Patient has the following medical conditions which may affect rosalie-operative course: Essential hypertension Assessment: controlled on rx Last 14 BP Last 14 Encounter BP Readings: Date: BP: 11/08/2024 140/84 11/05/2024 165/88 06/28/2024 158/92 05/15/2024 138/80 01/17/2024 112/78 11/14/2023 118/74 04/13/2023 118/78 02/18/2022 116/76 02/04/2021 138/88 10/16/2019 122/78 04/15/2019 148/88 03/15/2019 122/76 09/28/2018 131/84 07/02/2018 116/80 Mixed hyperlipidemia Assessment: c/w statin Smoker Assessment: 1ppd/30+ years, down to 0.5ppd, denies dx COPD/asthma, does admit to daily productive cough, worse the past several days stating she feels like she has an URI, /occasional wheezing, PFT/CXR ordered Anxiety with depression Assessment: stable on rx per pt Marijuana use Assessment: flower, 1-2x/week, reviewed to withhold prior to surgery, pt verbalized understanding. Obesity, Class I, BMI 30-34.9 Assessment: Body mass index is 32.61 kg/m . Prediabetes Assessment: diet controlled, Hemoglobin A1C (%) Date Value 10/14/2024 6.0 Liver cyst Assessment: multiple seen on CT 04/2024 Polypoid adenoma Assessment: per CT 04/2024 with GI consult recommended ANESTHESIA FINDINGS: Intubation History: No history of difficult intubation Significant Anesthesia Considerations: none Airway History: No history of difficult airway Nelson Activity Status Index: METS: Climb a flight of stairs or walk up a hill (5.50 METs) DASI Score: 5.5 Patient denies any chest pain or undue shortness of breath with the above physical activity. Clinical Frailty Scale: 3. Well, with treated comorbid disease STOP-Bang Score: Has or is being treated for high blood pressure Patient over 50 years old Has a large neck Denies snoring loudly Denies feeling tired, fatigued, or sleepy during the daytime Has not been observed to stop breathing or choking/gasping during sleep BMI less than or equal to 35 kg/m^2 Non-male patient STOP-Bang Score: 3 [id number] Score: Age: <65 Sex: female CHF history: No Hypertension history: Yes Stroke/TIA/thromboembolism history: No Vascular disease history: No Diabetes history: No [id number] Score: 2 ARISCAT Score: Age: 51-80 Preoperative SpO2: >=96% Preoperative anemia: No Surgical incision: peripheral Duration of surgery: >3 hrs Emergency procedure: No ARISCAT Score: I - PHYSICAL EVALUATION AIRWAY Patient intubated: No. Tracheostomy tube not present Mallampati: III. TM distance: >3 FB. Neck ROM: full ROM without neurological symptoms. Mouth opening: adequate. Short neck: no. Thick neck: yes Carlos present: no Lip Bite Test: I Microretrognathia/Micronagthia/Recessed Chin: No DENTAL Dentures, upper: complete. Dentures, lower: complete. II - ANESTHESIA PLAN Anesthetic Plan: other Beta Piper Monitoring Plan Post Procedure Analgesic Plan Prepared for Surgery: optimally prepared for surgery, pending [see comment]. Spirometry pending 11/15/2024 CONSULTS: Patient does not require consults for optimization at this time Planned Anesthetic: other anesthesia choice The Following Tests/Procedures Have Been Initiated: Orders Placed This Encounter XR CHEST 2V FRONTAL/LAT Standing Status: Future Number of Occurrences: 1 Expected Date: 11/08/2024 Expiration Date: 12/08/2025 ADULT - SPIROMETRY WITH DILATOR IF OBSTRUCTED Standing Status: Future Expected Date: 11/08/2024 Expiration Date: 12/08/2025 Scheduling Instructions: Please call to schedule, cancel, or change an appointment. Adults [phone] Pediatrics [phone] Should this patient be seen in a Pediatric Lab?: No REASON FOR VISIT: Violet Chin is a 59 year old female who is scheduled for Procedure(s): LAPAROSCOPIC ADRENALECTOMY (Right) at the request of Dr. John Bradley for consultation. My final recommendation will be communicated back to the requesting physician by way of shared medical record or letter. Subjective The patient has the following: COVID-19 Immunization Status Current Care Gaps Covid-19 Vaccine ( season) Overdue since 04/07/2024 04/13/2023 Postponed until 04/13/2024 by Erick Lemus MD (Declined at this time) 04/14/2021 Imm Admin: COVID-19 original vaccine, age 12+ yr, monovalent (PFIZER- BIONTECH - PURPLE TOP) 02/04/2021 Imm Admin: COVID-19 original vaccine, age 12+ yr, monovalent (PFIZER- BIONTECH - PURPLE TOP) Only the first 3 history entries have been loaded, but more history exists. CHIEF COMPLAINT: Pre-op exam HPI: Violet Chin is a 59 year old seen for PAC due to scheduled above surgery because of an adrenal lesion. 11/05/2024, Dr. John Bradley HPI: As you know, Violet Chin is a 59 year old female with a history of anxiety, depression, HTN, HLD, obesity BMI 34, preDM, marijuana and tobacco use who was incidentally found to have bilateral adrenal mass on CT abdomen done for abdominal pain. Subsequent dedicated adrenal CT showed 4.8 cm right adrenal mass with a pre contrast attenuation of 26 HU and washout of 17%. Adrenal lesion on the left measures 3.3 cm and has pre contrast attenuation of -6 HU with additional 3.3 cm with pre contrast attenuation 0 HU. She has a low ACTH (10. 3 nl 7.2-63.3 pg/mL), low DHEAS (37.3 nl 18.9-205 mcg/dL), high cortisol (13.7 <1.8mc/dL), normal renin/aldosterone, normal urine catecholamines and borderline elevated urine metanephrines. She has a Hgb A1C of 6 and no DEXA has been done. She was admitted for abdominal pain at the time of the diagnosis and found to have peptic ulcer disease. Surgical history is significant for , tubal ligation, laminectomy and eye surgery. Associated symptoms: Pain resolved. No florid hypercortisolism symptoms. Family history of endocrine tumors: No. History of previous cancer: No Pertinent medications (blood thinners, calcium, biotin, diuretics, lithium): No REVIEW OF SYSTEMS: General: No weight loss, malaise or fevers. Neurological: No history of TIA's, stroke, BOTTLED BEVERAGE INSPECTOR tumor, impaired sensorium, hemiplegia, paraplegia orquadraplegia. No neurological symptoms or problems. Respiratory: Positive for: tobacco use (0.5ppd) and URI < 2 weeks. Negative for: asthma, COPD, current cough, dyspnea, pneumonia within 6 weeks and obstructive sleep apnea. Cardiovascular: Positive for: hyperlipidemia (on rx) and hypertension (on rx) Negative for: abdominal aortic aneurysm, AICD/PPM, angina, anticoagulation therapy, arrhythmia, atrial fibrillation, CAD, chest pain, CHF, congenital heart defect, DVT/PE, recent PA, murmur/valvular heart disease, PTCA, PVD, open heart surgery and valve surgery. GI: No history of GI symptoms or problems. No history of esophageal varices, recent ascites, or ETOH greater than 2 drinks per day. : No history of dysuria, frequency or incontinence, stones or chronic kidney disease. No difficulty urinating, nocturia > 1 time per night or hematuria. 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 Endocrine: See HPI. Hematology: No history of bleeding or clotting disorder. Patient is not taking anti-coagulation or platelet medications. No history of hematological symptoms or problems. Oncology: No history of CA metastasis, chemo within 30 days, or radiotherapy within 90 days. No history of oncological symptoms or problems. Psych: Positive for: anxiety (on rx), depression (on rx) and Marijuana Use. Product type: Flower. Route of administration: Inhalation. Frequency: 1-2 times per week. Duration used: 1 years or more. Musculoskeletal: Negative for joint pain or swelling, back pain or muscle pain. Skin: Negative for lesions, rash and itching. PAST MEDICAL HISTORY Diagnosis Date Anxiety and depression History of COVID-19 08/2020 HTN (hypertension) Lumbar herniated disc s/p laminectomy-pain free Marijuana use Mixed hyperlipidemia Obesity (BMI 30-39.9) Prediabetes Tobacco use PAST SURGICAL HISTORY Procedure Laterality Date SNGL 1986 SNGL 1987 SNGL 2000 EYE SURGERY HX 1972 correct lazy eye LAMINECTOMY W/O FFD 08/08 VERT SEG LUMBAR 2007 TUBAL LIGATION 2000 FAMILY HISTORY Problem Relation Age of Onset COPD Mother No Known Problems Father No Known Problems Sister No Known Problems Sister No Known Problems Brother No Known Problems Brother Cancer Maternal Grandmother No Known Problems Daughter No Known Problems Daughter No Known Problems Son Adrenal Insufficiency No Family History Social History Tobacco Use Smoking status: Every Day Current packs/day: 1.00 Average packs/day: 1 pack/day for 30.0 years (30.0 ttl pk-yrs) Types: Cigarettes Passive exposure: Current Smokeless tobacco: Never Tobacco comments: 12 cigarettes/ DAY Vaping Use Vaping status: Never Used Substance Use Topics Alcohol use: No Drug use: Not Currently Types: Marijuana Comment: occasionally- 2 times a year Prior to Admission medications as of 11/11/24 1101 Medication Sig Last Dose Taking lisinopril-hydroCHLOROthiazide (ZESTORETIC) 10-12.5 mg per tablet Take 1 tablet by mouth once daily. Yes sertraline (ZOLOFT) 100 mg tablet Take 1 tablet by mouth once daily. Yes pantoprazole DR (PROTONIX) 40 mg tablet Take 1 tablet by mouth every 12 hours. Yes dexAMETHasone (DECADRON) 1 mg tablet Take the tablet at 11 pm and go for labs the next morning on fasting at 8 am Yes buPROPion SR (WELLBUTRIN SR) 150 mg 12 hr tablet Take 1 tablet by mouth two times a day. Yes atorvastatin (LIPITOR) 80 mg tablet Take 1 tablet by mouth daily at bedtime. For cholesterol. Yes No medication comments found. ALLERGIES Allergen Reactions Prozac [Fluoxetine] GI Upset Objective PHYSICAL EXAM: General: alert and oriented (x3), healthy appearance and obese. Pertinent negatives noted - not distressed. Skin: normal color, no rash or lesions. HEENT: EOM intact and pupils equal round. Pertinent negatives noted - no carotid bruit. Cardiovascular: regular rate and rhythm, normal S1 and S2, no rub, murmurs, or gallop. Respiratory: normal breath sounds, no wheezes or crackles. No chest wall deformity or tenderness. Abdomen: soft. Pertinent negatives noted - not tender. Extremities: no deformity, no edema or tenderness, no joint swelling or clubbing. Neurological: normal cognition and motor skills. Gait normal. No weakness or sensory deficit. PAIN ASSESSMENT: VITALS: BP 140/84 Pulse 81 Temp (Src) 97 (Temporal) Resp 14 Ht 5' 4 (1.63m) Wt 190 lb (86.2kg) SpO2 97% BMI 32.60 kg/(m^2). Diagnostic tests reviewed for today's visit: Lab Value Units Date High Low HB 13.5 g/dL 11/08/2024 15.5 11.5 HCT 40.2 % 11/08/2024 46.0 36.0 WBC 5.74 k/uL 11/08/2024 11.00 3.70 PLT 218 k/uL 11/08/2024 400 150 NA 131 mmol/L 11/08/2024 144 136 K 4.2 mmol/L 11/08/2024 5.1 3.7 GLUC 89 mg/dL 11/08/2024 99 74 BUN 17 mg/dL 11/08/2024 21 7 CREAT 0.69 mg/dL 11/08/2024 0.96 0.58 PTSEC No results within date range. INR No results within date range. APTT No results within date range. ALT 9 U/L 10/14/2024 38 7 AST 13 U/L 10/14/2024 35 13 TBILI 0.4 mg/dL 10/14/2024 1.3 0.2 TSH No results within date range. Lab Value Units Date High Low HCGQT No results within date range. UHCG No results within date range. HCG, BODY* No results within date range. Lab Value Units Date High Low ABORHD No results within date range. ABSCREEN No results within date range. Hemoglobin A1C (%) Date Value 10/14/2024 6.0 Recent Results (from the past 8760 hours) ECG COMPLETE Collection Time: 11/08/24 3:22 PM Result Value Ventricular Rate 70 Atrial Rate 70 P-R Interval 144 QRS Duration 94 QT Interval 412 QTC Calculation (Bazett) 444 Calculated P Rowland 9 Calculated R Rowland 67 Calculated T Rowland 5 Impression NORMAL SINUS RHYTHM NORMAL ECG No results found for this or any previous visit (from the past 36472 hours). Instructions Given to Patient: Instructions located in the after visit summary. Patient given verbal and written preop instructions and voices comprehension and compliance. SIGNATURE: Gurvinder Garcia APRN.CNP PATIENT NAME: Violet Chin DATE: November 08, 2024 TIME: 2:33 PM PAGER/CONTACT #: [facility] History of Present illness Narrative* John Bradley MD - 11/05/2024 9:00 AM EDT ENDOCRINE SURGERY NEW CONSULTATION NAME: Violet Chin CLINIC NO: [id number] : 1965 REFERRING PROVIDER: Nina Lerner MD Thank you for referring Violet Chin for the diagnosis of adrenal nodule. HPI: As you know, Violet Chin is a 59 year old female with a history of anxiety, depression, HTN, HLD, obesity BMI 34, preDM, marijuana and tobacco use who was incidentally found to have bilateral adrenal mass on CT abdomen done for abdominal pain. Subsequent dedicated adrenal CT showed 4.8 cm right adrenal mass with a pre contrast attenuation of 26 HU and washout of 17%. Adrenal lesion on the left measures 3.3 cm and has pre contrast attenuation of -6 HU with additional 3.3 cm with pre contrast attenuation 0 HU. She has a low ACTH (10. 3 nl 7.2-63.3 pg/mL), low DHEAS (37.3 nl 18.9-205 mcg/dL), high cortisol (13.7 <1.8mc/dL), normal renin/aldosterone, normal urine catecholamines and borderline elevated urine metanephrines. She has a Hgb A1C of 6 and no DEXA has been done. She was admitted for abdominal pain at the time of the diagnosis and found to have peptic ulcer disease. Surgical history is significant for , tubal ligation, laminectomy and eye surgery. Associated symptoms: Pain resolved. No florid hypercortisolism symptoms. Family history of endocrine tumors: No. History of previous cancer: No Pertinent medications (blood thinners, calcium, biotin, diuretics, lithium): No PHYSICAL EXAM: On physical exam, Violet Chin is well appearing, alert, and oriented and appears euthyroid. On inspection, the skin over the anterior neck is smooth, no mass is visualized. Palpation revealed neck to be supple. No lymphadenopathy was palpated on either side of the neck. Unlabored breathing on room air. RRR on pulse exam. Abdomen is obese with infraumbilical scar from prior , soft, non-distended, non-tender, no masses felt. LABS: Latest Ref Rng 10/25/2024 10/28/2024 Hours Collected hr 24 Total Volume mL 1675 Epinephrine, Ur per vol ug/L 4 Norepinephrine, Ur per vol ug/L 23 Dopamine, Ur per vol ug/L 170 Epinephrine, Ur ratio to PROPERTY MANAGEMENT INTERN 0 - 20 ug/g PROPERTY MANAGEMENT INTERN 6 Epinephrine, Ur 24hr 1 - 14 ug/d 7 Norepinephrine, Ur ratio to PROPERTY MANAGEMENT INTERN 0 - 45 ug/g PROPERTY MANAGEMENT INTERN 37 Norepinephrine, Ur 24hr 14 - 120 ug/d 39 Dopamine, Ur ratio to PROPERTY MANAGEMENT INTERN 0 - 250 ug/g PROPERTY MANAGEMENT INTERN 270 (H) Creatinine, Urine Per Volume mg/dL 63 Creatinine, Urine Per 24H 500 - 1400 mg/d 1055 Dopamine, Ur 24hr 71 - 485 ug/d 285 Catecholamines Interpretation See Note Metanephrine 52 - 341 ug/24 hr 365 (H) Normetanephrine 88 - 444 ug/24 hr 526 (H) Tot Metanephrine 140 - 785 ug/24 hr 891 (H) Urine Volume 24 hour mL 1,675 Urine Volume 24 hour mL 1,675 Period hr 24 Period hr 24 Aldosterone 0.0 - <35.4 ng/dL 8.4 Direct Renin 3.6 - 81.6 pg/mL 40.7 Aldosterone/Renin Ratio <3.8 0.2 Patient Upright or Supine Upright Creatinine 24 hr Ur 0.800 - 1.800 g/24 hr 0.951 ACTH 7.2 - 63.3 pg/mL 10.3 DHEA-S 18.9 - 205.0 ug/dL 37.3 Dexamethasone ng/dL <50.0 Potassium 3.7 - 5.1 mmol/L 3.6 (L) Cortisol,ON DEX,Post <1.8 ug/dL 13.7 (H) RADIOLOGY: IMPRESSION: 1. Indeterminate 4.8 cm mass in the right adrenal, worrisome for adrenal malignancy. If no cancer history, consider resection because of the possibility of an adrenocortical carcinoma. If there is a cancer history consider PET or biopsy the 1.1 cm left retroperitoneal lymph node demonstrate maintained central fatty hilum. 2. 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 ACTIONABLE RESULT: FOLLOW-UP Acuity: Actionable Findings: Adrenal Routing Code: AD_1 Recommendation: SUBSPECIALTY CONSULTATION SUGGESTED Time Frame: COMMUNICATION: Results will be communicated with the ordering provider via [employer] staff message or phone message by [facility] within 2 business days of report finalization. --END OF FINDING-- Import Clerk: ALIZA Transcribe Date/Time: Oct 14 2024 3:23P Dictated by : ANISH BECK MD This examination was interpreted and the report reviewed and electronically signed by: ANISH BECK MD on Oct 14 2024 4:24PM EST Results-Findings * * *Final Report* * * DATE OF EXAM: Oct 14 2024 3:45PM [facility] 0536 - CT ADRENAL WO/W IVCON / PROCEDURE REASON: Disorder of adrenal gland (HCC) * * * * Physician Interpretation * * * * CT ABDOMEN / ADRENAL GLANDS WITHOUT AND WITH IV CONTRAST CLINICAL HISTORY: Abnormal adrenal glands TECHNIQUE: Thin section spiral imaging through the adrenal glands was performed without and with contrast using washout technique. Oral contrast is not administered per protocol. Contrast: IV: 100 ml of Omnipaque 350 Oral Contrast: None CT Radiation dose: Integrated Dose-length product (DLP) for this visit = 1459 mGy*cm. CT Dose Reduction Employed: Automated exposure control(AEC) and iterative recon COMPARISON: [facility] 04/16/2024 , no images available. RESULT: Adrenal glands: Right adrenal gland: Hypoattenuating nodular thickening of the crural limb, adjacent isoattenuating mass in the anterior medial limb. Adrenal Lesion #1 characteristics: crural limb - Dimensions: 3.0 x 1.7 cm - Pre-contrast attenuation: 3 H.U. - Portal phase attenuation: 35 H.U. - Delayed phase attenuation: 9 H.U. - Absolute wash-out: 81% consistent with an adenoma. - Relative wash-out: 74% consistent with an adenoma. Adrenal Lesion #2 characteristics: mass in the anterior limb - Dimensions: 4.3 x 2.9 x 4.8 cm - Pre-contrast attenuation: 26 H.U. - Portal phase attenuation: 56 H.U. - Delayed phase attenuation: 51 H.U. - Absolute wash-out: 17% Absolute washout less than 60% is indeterminate. - Relative wash-out: 9% Absolute washout less than 60% is indeterminate. Left adrenal gland: Hypoattenuating nodular thickening of the posterior medial and posterior lateral limbs Adrenal Lesion #3 characteristics: Posterior medial limb - Dimensions: 3.3 x 1.9 cm cm - Pre-contrast attenuation: -6 H.U. - Portal phase attenuation: 23 H.U. - Delayed phase attenuation: -4 H.U. - Absolute wash-out: 93% consistent with an adenoma. - Relative wash-out: 100% consistent with an adenoma. Adrenal Lesion #4characteristics: Posterior lateral limb - Dimensions: 3.3 x 1.9 cm cm - Pre-contrast attenuation: 0 H.U. - Portal phase attenuation: 17 H.U. - Delayed phase attenuation: 4 H.U. - Absolute wash-out: 77% consistent with an adenoma. - Relative wash-out: 77% consistent with an adenoma. Abdomen Liver: No mass. A 1.8 cm cyst is present in the left hepatic dome, 1.2 cm cyst in the segment 4A and NPI there is a cyst in the inferior right hepatic lobe. Biliary: No bile duct dilation. Gallbladder is unremarkable. Spleen: No mass. No splenomegaly. Pancreas: No mass or duct dilation. Kidneys: Punctate calcifications in the renal pelves bilaterally are likely vascular in nature. A 1.4 cm cortical cyst is present in the anterior aspect of the inferior renal pole, and 1.9 cm parapelvic cyst in the interpolar region. GI tract: A 3.0 cm lipoma is present in the descending duodenum. No dilation or wall thickening. Appendix is normal. Lymph nodes: No abdominal lymphadenopathy. Mesentery/Peritoneum: No ascites or mass. Vasculature: - Abdominal aorta and iliac arteries: Atherosclerotic calcifications without aneurysm. - Celiac and SMA: Patent without stenosis. - Portal venous system (SMV, splenic vein, portal vein and branches): Patent. - Hepatic veins: Patent. - Other: None Bones/Soft Tissues: Lower lumbar spondylosis. Lower Thorax: No consolidation or pleural effusion Localizer images: No additional findings ASSESSMENT and PLAN: In summary, Violet Chin has an incidentally indeterminate right adrenal mass measuring 4.8 cm. She has some evidence of autonomous cortisol secretion. Discussed with the patient need for right adrenalectomy. Risks, benefits and alternatives discussed with the patient and she agreed to proceed. Surgery planned for 11/20/24. In preparation for surgery we will obtain: -PACC -Labs -EKG -CT chest -T&S I appreciate being involved in the care of your patient, and please feel free to contact me should you have additional questions. Sincerely, John Bradley MD [facility], Department of Endocrine Surgery documented in this encounter[facility]25 NoteHNO ID: [id number] Author: JOHN RBADLEY MD Service: ? Author Type: Physician Type: Progress Notes Filed: 11/05/2024 09:37 Note Text: ENDOCRINE SURGERY NEW CONSULTATION NAME: Violet Chin CLINIC NO: [id number] : 1965 REFERRING PROVIDER: Nina Lerner MD Thank you for referring Violet Chin for the diagnosis of adrenal nodule. HPI: As you know, Violet Chin is a 59 year old female with a history of anxiety, depression, HTN, HLD, obesity BMI 34, preDM, marijuana and tobacco use who was incidentally found to have bilateral adrenal mass on CT abdomen done for abdominal pain. Subsequent dedicated adrenal CT showed 4.8 cm right adrenal mass with a pre contrast attenuation of 26 HU and washout of 17%. Adrenal lesion on the left measures 3.3 cm and has pre contrast attenuation of -6 HU with additional 3.3 cm with pre contrast attenuation 0 HU. She has a low ACTH (10. 3 nl 7.2-63.3 pg/mL), low DHEAS (37.3 nl 18.9-205 mcg/dL), high cortisol (13.7 <1.8mc/dL), normal renin/aldosterone, normal urine catecholamines and borderline elevated urine metanephrines. She has a Hgb A1C of 6 and no DEXA has been done. She was admitted for abdominal pain at the time of the diagnosis and found to have peptic ulcer disease. Surgical history is significant for , tubal ligation, laminectomy and eye surgery. Associated symptoms: Pain resolved. No florid hypercortisolism symptoms. Family history of endocrine tumors: No. History of previous cancer: No Pertinent medications (blood thinners, calcium, biotin, diuretics, lithium): No PHYSICAL EXAM: On physical exam, Violet Chin is well appearing, alert, and oriented and appears euthyroid. On inspection, the skin over the anterior neck is smooth, no mass is visualized. Palpation revealed neck to be supple. No lymphadenopathy was palpated on either side of the neck. Unlabored breathing on room air. RRR on pulse exam. Abdomen is obese with infraumbilical scar from prior , soft, non-distended, non-tender, no masses felt. LABS: Latest Ref Rng 10/25/2024 10/28/2024 Hours Collected hr 24 Total Volume mL 1675 Epinephrine, Ur per vol ug/L 4 Norepinephrine, Ur per vol ug/L 23 Dopamine, Ur per vol ug/L 170 Epinephrine, Ur ratio to PROPERTY MANAGEMENT INTERN 0 - 20 ug/g PROPERTY MANAGEMENT INTERN 6 Epinephrine, Ur 24hr 1 - 14 ug/d 7 Norepinephrine, Ur ratio to PROPERTY MANAGEMENT INTERN 0 - 45 ug/g PROPERTY MANAGEMENT INTERN 37 Norepinephrine, Ur 24hr 14 - 120 ug/d 39 Dopamine, Ur ratio to PROPERTY MANAGEMENT INTERN 0 - 250 ug/g PROPERTY MANAGEMENT INTERN 270 (H) Creatinine, Urine Per Volume mg/dL 63 Creatinine, Urine Per 24H 500 - 1400 mg/d 1055 Dopamine, Ur 24hr 71 - 485 ug/d 285 Catecholamines Interpretation See Note Metanephrine 52 - 341 ug/24 hr 365 (H) Normetanephrine 88 - 444 ug/24 hr 526 (H) Tot Metanephrine 140 - 785 ug/24 hr 891 (H) Urine Volume 24 hour mL 1,675 Urine Volume 24 hour mL 1,675 Period hr 24 Period hr 24 Aldosterone 0.0 - <35.4 ng/dL 8.4 Direct Renin 3.6 - 81.6 pg/mL 40.7 Aldosterone/Renin Ratio <3.8 0.2 Patient Upright or Supine Upright Creatinine 24 hr Ur 0.800 - 1.800 g/24 hr 0.951 ACTH 7.2 - 63.3 pg/mL 10.3 DHEA-S 18.9 - 205.0 ug/dL 37.3 Dexamethasone ng/dL <50.0 Potassium 3.7 - 5.1 mmol/L 3.6 (L) Cortisol,ON DEX,Post <1.8 ug/dL 13.7 (H) RADIOLOGY: IMPRESSION: 1. Indeterminate 4.8 cm mass in the right adrenal, worrisome for adrenal malignancy. If no cancer history, consider resection because of the possibility of an adrenocortical carcinoma. If there is a cancer history consider PET or biopsy the 1.1 cm left retroperitoneal lymph node demonstrate maintained central fatty hilum. 2. 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 ACTIONABLE RESULT: FOLLOW-UP Acuity: Actionable Findings: Adrenal Routing Code: AD_1 Recommendation: SUBSPECIALTY CONSULTATION SUGGESTED Time Frame: COMMUNICATION: Results will be communicated with the ordering provider via [employer] staff message or phone message by [facility] within 2 business days of report finalization. --END OF FINDING-- Import Clerk: PSCB Transcribe Date/Time: Oct 14 2024 3:23P Dictated by : ANISH BECK MD This examination was interpreted and the report reviewed and electronically signed by: ANISH BECK MD on Oct 14 2024 4:24PM EST Results-Findings * * *Final Report* * * DATE OF EXAM: Oct 14 2024 3:45PM [facility] 0536 - CT ADRENAL WO/W IVCON / PROCEDURE REASON: Disorder of adrenal gland (HCC) * * * * Physician Interpretation * * * * CT ABDOMEN / ADRENAL GLANDS WITHOUT AND WITH IV CONTRAST CLINICAL HISTORY: Abnormal adrenal glands TECHNIQUE: Thin section spiral imaging through the adrenal glands was performed without and with contrast using washout technique. Oral contrast is not administered per protocol. Contrast: IV: 100 ml of Omnipaque 350 Oral Contrast: None CT Radiation dose: Integrated Dose-length product (DLP) for this visit = 1459 mGy*cm. CT Dose R (more content not included)...[facility]04-01-2025 Instructions* Patient Instructions* Yadira Doll MA - 11/05/2024 8:57 AM EDT Thank you for choosing the [facility] Department of Endocrinology, Diabetes and Metabolism. Did you know that you need to call 48 hours in advance of your scheduled visit, if you are unable to make your appointment? The [facility] thanks you for your commitment, because patients not showing to their appointment results in a lost opportunity for patients to receive [facility] at the [facility]. To Cancel an appointment, please choose one of the following: - Call the Appointment Call Center at [phone] - From [employer], Go to Appointments - Cancel Appts If cancelling, consider your need to reschedule to prevent further delays in your care. To Schedule an appointment, please choose one of the following: - Call the Appointment Call Center at [phone] - From [employer], Go to Appointments - Request an Appt documented in this encounterBethesda North Hospital03-27-2025 Telephone encounter Note * Telephone Encounter - Nalini Goode - 10/31/2024 4:10 PM EDT 10/31/2024 INTAKE PENDING-LFT MSG ON VMX AND SENT [facility] PATIENT WORKSHEET Initial Call Date: October 31, 2024 Reason for Consult/ Referral: Adrenal Mass PATIENT DEMOGRAPHICS Name: Violet Chin CCF#: [id number] : 1965 AGE: [age] year old Contact Numbers: Home: (home) Work: There is no work phone number on file. PATIENT PHYSICIAN INFORMATION Referring Doctor: Address: Phone: [employer] Architect: Address: Phone: PCP: Erick Lemus [address] [place] [address] PAST TREATMENT Office notes: SEE EPIC Medications: NONE THAT APPLY Pre-Visit Testing Latest Ref Rng 10/25/2024 10/28/2024 Metanephrine 52 - 341 ug/24 hr 365 (H) Normetanephrine 88 - 444 ug/24 hr 526 (H) Tot Metanephrine 140 - 785 ug/24 hr 891 (H) Urine Volume 24 hour mL 1,675 Urine Volume 24 hour mL 1,675 Period hr 24 Period hr 24 Aldosterone 0.0 - <35.4 ng/dL 8.4 Direct Renin 3.6 - 81.6 pg/mL 40.7 Aldosterone/Renin Ratio <3.8 0.2 Patient Upright or Supine Upright Creatinine 24 hr Ur 0.800 - 1.800 g/24 hr 0.951 ACTH 7.2 - 63.3 pg/mL 10.3 DHEA-S 18.9 - 205.0 ug/dL 37.3 Dexamethasone ng/dL <50.0 Potassium 3.7 - 5.1 mmol/L 3.6 (L) Cortisol,ON DEX,Post <1.8 ug/dL 13.7 (H) Imaging Reports: SEE [facility] CD of Images: SEE [facility] FNA: no FNA Slides: N/A Has the patient ever had thyroid or parathyroid surgery before: No Operative Reports: NONE AVAILABLE Pathology Reports: NONE AVAILABLE [facility] Work Phone: [phone]) 791-206003-27-2025 Miscellaneous Notes* Telephone Encounter - Nalini Goode - 10/31/2024 4:10 PM EDT 10/31/2024 INTAKE PENDING-LFT MSG ON VMX AND SENT [facility] PATIENT WORKSHEET Initial Call Date: October 31, 2024 Reason for Consult/ Referral: Adrenal Mass PATIENT DEMOGRAPHICS Name: Violet Chin CCF#: [id number] : 1965 AGE: [age] year old Contact Numbers: Home: (home) Work: There is no work phone number on file. PATIENT PHYSICIAN INFORMATION Referring Doctor: Address: Phone: [employer] Architect: Address: Phone: PCP: Erick Lemus [address] [place] [address] PAST TREATMENT Office notes: SEE EPIC Medications: NONE THAT APPLY Pre-Visit Testing Latest Ref Rng 10/25/2024 10/28/2024 Metanephrine 52 - 341 ug/24 hr 365 (H) Normetanephrine 88 - 444 ug/24 hr 526 (H) Tot Metanephrine 140 - 785 ug/24 hr 891 (H) Urine Volume 24 hour mL 1,675 Urine Volume 24 hour mL 1,675 Period hr 24 Period hr 24 Aldosterone 0.0 - <35.4 ng/dL 8.4 Direct Renin 3.6 - 81.6 pg/mL 40.7 Aldosterone/Renin Ratio <3.8 0.2 Patient Upright or Supine Upright Creatinine 24 hr Ur 0.800 - 1.800 g/24 hr 0.951 ACTH 7.2 - 63.3 pg/mL 10.3 DHEA-S 18.9 - 205.0 ug/dL 37.3 Dexamethasone ng/dL <50.0 Potassium 3.7 - 5.1 mmol/L 3.6 (L) Cortisol,ON DEX,Post <1.8 ug/dL 13.7 (H) Imaging Reports: SEE [facility] CD of Images: SEE [facility] FNA: no FNA Slides: N/A Has the patient ever had thyroid or parathyroid surgery before: No Operative Reports: NONE AVAILABLE Pathology Reports: NONE AVAILABLE documented in this encounterBethesda North Hospital03-25-2025 Instructions* Patient Instructions* Nina Lerner MD - 10/29/2024 4:23 PM EDT - Monitor MyChart for new lab orders and updates. - Referral to Dr. Rogel, a surgeon specializing in robotic adrenal surgeries, has been made. call this phone number to make an appt with surgery -[phone] - Be prepared for possible additional testing before surgery. documented in this encounterBethesda North Hospital03-25-2025 NoteHNO ID: [id number] Author: NINA LERNER MD Service: ? Author Type: Physician Type: Progress Notes Filed: 11/02/2024 00:13 Note Text: [facility] Follow up note Patient referred by: Aissatou Mac APRN. [employer] Chief compliant: B/L Adrenal nodules History of Present Illness: Ms. Violet Chin is a 58 year old female coming today for follow up of bilateral adrenal nodules. She also has a hx of duodenal ulcers and is on protonix, carafate for the same Initial visit /last visit 06/28/2024. She was advised to return in 6 to 8 weeks after labs were completed but she did not complete labs, imaging or follow up as discussed History in brief, she underwent CT abdomen for abdominal pain when adrenal nodules were incidentally found in bilateral adrenal glands. She denied any recent significant unintentional changes in weight, other than weight loss of about 25 lbs with intermittent fasting/low carb diet, but has gained about 5 lbs after Denied any palpitations, tremors, sweaty episodes, headaches No concerns for easy bruising, stretch albert, proximal muscle weakness or excess facial.body hair Previous use of Steroids, oral, inhalers, injections: No chronic use Today she is following up after labs and CT adrenal Labs are still in process; some results have been received, but many are pending. Will update labs once received - Took dexamethasone pill as instructed before urine collection, and cortisol levels are high Past Medical History: PAST MEDICAL HISTORY Diagnosis Date Anxiety and depression History of COVID-19 08/2020 HTN (hypertension) Lumbar herniated disc s/p laminectomy-pain free Marijuana use Mixed hyperlipidemia Obesity (BMI 30-39.9) Prediabetes Tobacco use Surgical History: PAST SURGICAL HISTORY Procedure Laterality Date SNGL 1986 SNGL 1987 SNGL 2000 EYE SURGERY HX 1972 correct lazy eye LAMINECTOMY W/O FFD 1/2 VERT SEG LUMBAR 2007 TUBAL LIGATION 2000 Family Medical History: FAMILY HISTORY Problem Relation Age of Onset COPD Mother No Known Problems Father No Known Problems Sister No Known Problems Sister No Known Problems Brother No Known Problems Brother Cancer Maternal Grandmother No Known Problems Daughter No Known Problems Daughter No Known Problems Son Adrenal Insufficiency No Family History Social History: Social History Tobacco Use Smoking status: Every Day Current packs/day: 1.00 Average packs/day: 1 pack/day for 30.0 years (30.0 ttl pk-yrs) Types: Cigarettes Passive exposure: Current Smokeless tobacco: Never Substance Use Topics Alcohol use: No Drug use: Not Currently Types: Marijuana Comment: occasionally- 2 times a year Allergies: ALLERGIES Allergen Reactions Prozac [Fluoxetine] GI Upset Current medications: Current Outpatient Medications Medication Sig lisinopril-hydroCHLOROthiazide (ZESTORETIC) 10-12.5 mg per tablet Take 1 tablet by mouth once daily. sertraline (ZOLOFT) 100 mg tablet Take 1 tablet by mouth once daily. pantoprazole DR (PROTONIX) 40 mg tablet Take 1 tablet by mouth every 12 hours. BIOTIN ORAL Take 1 tablet by mouth once daily. (Patient taking differently: Take 1 tablet by mouth once daily. On hold) buPROPion SR (WELLBUTRIN SR) 150 mg 12 hr tablet Take 1 tablet by mouth two times a day. atorvastatin (LIPITOR) 80 mg tablet Take 1 tablet by mouth daily at bedtime. For cholesterol. sucralfate (CARAFATE) 1 gram tablet Take 1 g by mouth four times daily. (Patient not taking: Reported on 10/29/2024) dexAMETHasone (DECADRON) 1 mg tablet Take the tablet at 11 pm and go for labs the next morning on fasting at 8 am (Patient not taking: Reported on 10/29/2024) No current facility-administered medications for this visit. Review of Systems: 10 point ROS was reviewed and negative unless indicated in the HPI Physical exam: Pulse 64 Temp 37.1 ?C (98.8 ?F) (Temporal Artery) Wt 86.4 kg (190 lb 6.4 oz) SpO2 97% BMI 34.82 kg/m? General Appearance: Well appearing, alert, in no acute distress, well-hydrated, well nourished, obese body habitus Skin: Skin color, texture, turgor normal, no suspicious rashes or lesions. Eyes: Anicteric sclera. Extraocular movements are intact. Neck: Supple, no adenopathy; thyroid symmetric, normal size, no bruits. Lungs: unlabored breathing on room air Heart: Regular leatha and rhythm Abdomen: no typical concerning features noted, obese abdomen Extremities: No deformities, edema, skin discoloration, clubbing or cyanosis. Musculoskeletal: No joint swelling, deformity, spinal tenderness Peripheral Pulses: Normal. Neurologic: Gait normal. Previous laboratory results: Latest Ref Rng 10/25/2024 10/28/2024 Hours Collected hr 24 Total Volume mL 1675 Epinephrine, Ur per vol ug/L 4 Norepinephrine, Ur per vol ug/L 23 Dopamine, Ur per vol ug/L 170 Epinephrine, Ur ratio t (more content not included)...[facility] 10-29-2024 History of Present illness Narrative* Nina Lerner MD - 10/29/2024 4:02 PM EDT Images from the original note were not included. [facility] Follow up note Patient referred by: Aissatou Mac APRN. [employer] Chief compliant: B/L Adrenal nodules History of Present Illness: Ms. Violet Chin is a 58 year old female coming today for follow up of bilateral adrenal nodules. She also has a hx of duodenal ulcers and is on protonix, carafate for the same Initial visit /last visit 06/28/2024. She was advised to return in 6 to 8 weeks after labs were completed but she did not complete labs, imaging or follow up as discussed History in brief, she underwent CT abdomen for abdominal pain when adrenal nodules were incidentally found in bilateral adrenal glands. She denied any recent significant unintentional changes in weight, other than weight loss of about 25 lbs with intermittent fasting/low carb diet, but has gained about 5 lbs after Denied any palpitations, tremors, sweaty episodes, headaches No concerns for easy bruising, stretch albert, proximal muscle weakness or excess facial.body hair Previous use of Steroids, oral, inhalers, injections: No chronic use Today she is following up after labs and CT adrenal Labs are still in process; some results have been received, but many are pending. Will update labs once received - Took dexamethasone pill as instructed before urine collection, and cortisol levels are high Past Medical History: PAST MEDICAL HISTORY Diagnosis Date Anxiety and depression History of COVID-19 08/2020 HTN (hypertension) Lumbar herniated disc s/p laminectomy-pain free Marijuana use Mixed hyperlipidemia Obesity (BMI 30-39.9) Prediabetes Tobacco use Surgical History: PAST SURGICAL HISTORY Procedure Laterality Date SNGL 1986 SNGL 1987 SNGL 2000 EYE SURGERY HX 1972 correct lazy eye LAMINECTOMY W/O FFD 1/2 VERT SEG LUMBAR 2007 TUBAL LIGATION 2001 Family Medical History: FAMILY HISTORY Problem Relation Age of Onset COPD Mother No Known Problems Father No Known Problems Sister No Known Problems Sister No Known Problems Brother No Known Problems Brother Cancer Maternal Grandmother No Known Problems Daughter No Known Problems Daughter No Known Problems Son Adrenal Insufficiency No Family History Social History: Social History Tobacco Use Smoking status: Every Day Current packs/day: 1.00 Average packs/day: 1 pack/day for 30.0 years (30.0 ttl pk-yrs) Types: Cigarettes Passive exposure: Current Smokeless tobacco: Never Substance Use Topics Alcohol use: No Drug use: Not Currently Types: Marijuana Comment: occasionally- 2 times a year Allergies: ALLERGIES Allergen Reactions Prozac [Fluoxetine] GI Upset Current medications: Current Outpatient Medications Medication Sig lisinopril-hydroCHLOROthiazide (ZESTORETIC) 10-12.5 mg per tablet Take 1 tablet by mouth once daily. sertraline (ZOLOFT) 100 mg tablet Take 1 tablet by mouth once daily. pantoprazole DR (PROTONIX) 40 mg tablet Take 1 tablet by mouth every 12 hours. BIOTIN ORAL Take 1 tablet by mouth once daily. (Patient taking differently: Take 1 tablet by mouth once daily. On hold) buPROPion SR (WELLBUTRIN SR) 150 mg 12 hr tablet Take 1 tablet by mouth two times a day. atorvastatin (LIPITOR) 80 mg tablet Take 1 tablet by mouth daily at bedtime. For cholesterol. sucralfate (CARAFATE) 1 gram tablet Take 1 g by mouth four times daily. (Patient not taking: Reported on 10/29/2024) dexAMETHasone (DECADRON) 1 mg tablet Take the tablet at 11 pm and go for labs the next morning on fasting at 8 am (Patient not taking: Reported on 10/29/2024) No current facility-administered medications for this visit. Review of Systems: 10 point ROS was reviewed and negative unless indicated in the HPI Physical exam: Pulse 64 Temp 37.1 C (98.8 F) (Temporal Artery) Wt 86.4 kg (190 lb 6.4 oz) SpO2 97% BMI 34.82 kg/m General Appearance: Well appearing, alert, in no acute distress, well-hydrated, well nourished, obese body habitus Skin: Skin color, texture, turgor normal, no suspicious rashes or lesions. Eyes: Anicteric sclera. Extraocular movements are intact. Neck: Supple, no adenopathy; thyroid symmetric, normal size, no bruits. Lungs: unlabored breathing on room air Heart: Regular leatha and rhythm Abdomen: no typical concerning features noted, obese abdomen Extremities: No deformities, edema, skin discoloration, clubbing or cyanosis. Musculoskeletal: No joint swelling, deformity, spinal tenderness Peripheral Pulses: Normal. Neurologic: Gait normal. Previous laboratory results: Latest Ref Rng 10/25/2024 10/28/2024 Hours Collected hr 24 Total Volume mL 1675 Epinephrine, Ur per vol ug/L 4 Norepinephrine, Ur per vol ug/L 23 Dopamine, Ur per vol ug/L 170 Epinephrine, Ur ratio to PROPERTY MANAGEMENT INTERN 0 - 20 ug/g PROPERTY MANAGEMENT INTERN 6 Epinephrine, Ur 24hr 1 - 14 ug/d 7 Norepinephrine, Ur ratio to PROPERTY MANAGEMENT INTERN 0 - 45 ug/g PROPERTY MANAGEMENT INTERN 37 Norepinephrine, Ur 24hr 14 - 120 ug/d 39 Dopamine, Ur ratio to PROPERTY MANAGEMENT INTERN 0 - 250 ug/g PROPERTY MANAGEMENT INTERN 270 (H) Creatinine, Urine Per Volume mg/dL 63 Creatinine, Urine Per 24H 500 - 1400 mg/d 1055 Dopamine, Ur 24hr 71 - 485 ug/d 285 Catecholamines Interpretation See Note Metanephrine 52 - 341 ug/24 hr 365 (H) Normetanephrine 88 - 444 ug/24 hr 526 (H) Tot Metanephrine 140 - 785 ug/24 hr 891 (H) Urine Volume 24 hour mL 1,675 Urine Volume 24 hour mL 1,675 Period hr 24 Period hr 24 Aldosterone 0.0 - <35.4 ng/dL 8.4 Direct Renin 3.6 - 81.6 pg/mL 40.7 Aldosterone/Renin Ratio <3.8 0.2 Patient Upright or Supine Upright Creatinine 24 hr Ur 0.800 - 1.800 g/24 hr 0.951 ACTH 7.2 - 63.3 pg/mL 10.3 DHEA-S 18.9 - 205.0 ug/dL 37.3 Dexamethasone ng/dL <50.0 Potassium 3.7 - 5.1 mmol/L 3.6 (L) Cortisol,ON DEX,Post <1.8 ug/dL 13.7 (H) Legend: (L) Low (H) High Imaging: Previous Adrenal CT: CT ABDOMEN / ADRENAL GLANDS WITHOUT AND WITH IV CONTRAST : 10/14/2024 CLINICAL HISTORY: Abnormal adrenal glands TECHNIQUE: Thin section spiral imaging through the adrenal glands was performed without and with contrast using washout technique. Oral contrast is not administered per protocol. Contrast: IV: 100 ml of Omnipaque 350 Oral Contrast: None CT Radiation dose: Integrated Dose-length product (DLP) for this visit = 1459 mGy*cm. CT Dose Reduction Employed: Automated exposure control(AEC) and iterative recon COMPARISON: Report available through [email or web address] for outside CT abdomen 04/16/2024 , no images available. RESULT: Adrenal glands: Right adrenal gland: Hypoattenuating nodular thickening of the crural limb, adjacent isoattenuating mass in the anterior medial limb. Adrenal Lesion #1 characteristics: crural limb - Dimensions: 3.0 x 1.7 cm - Pre-contrast attenuation: 3 H.U. - Portal phase attenuation: 35 H.U. - Delayed phase attenuation: 9 H.U. - Absolute wash-out: 81% consistent with an adenoma. - Relative wash-out: 74% consistent with an adenoma. Adrenal Lesion #2 characteristics: mass in the anterior limb - Dimensions: 4.3 x 2.9 x 4.8 cm - Pre-contrast attenuation: 26 H.U. - Portal phase attenuation: 56 H.U. - Delayed phase attenuation: 51 H.U. - Absolute wash-out: 17% Absolute washout less than 60% is indeterminate. - Relative wash-out: 9% Absolute washout less than 60% is indeterminate. Left adrenal gland: Hypoattenuating nodular thickening of the posterior medial and posterior lateral limbs Adrenal Lesion #3 characteristics: Posterior medial limb - Dimensions: 3.3 x 1.9 cm cm - Pre-contrast attenuation: -6 H.U. - Portal phase attenuation: 23 H.U. - Delayed phase attenuation: -4 H.U. - Absolute wash-out: 93% consistent with an adenoma. - Relative wash-out: 100% consistent with an adenoma. Adrenal Lesion #4characteristics: Posterior lateral limb - Dimensions: 3.3 x 1.9 cm cm - Pre-contrast attenuation: 0 H.U. - Portal phase attenuation: 17 H.U. - Delayed phase attenuation: 4 H.U. - Absolute wash-out: 77% consistent with an adenoma. - Relative wash-out: 77% consistent with an adenoma. Abdomen Liver: No mass. A 1.8 cm cyst is present in the left hepatic dome, 1.2 cm cyst in the segment 4A and NPI there is a cyst in the inferior right hepatic lobe. Biliary: No bile duct dilation. Gallbladder is unremarkable. Spleen: No mass. No splenomegaly. Pancreas: No mass or duct dilation. Kidneys: Punctate calcifications in the renal pelves bilaterally are likely vascular in nature. A 1.4 cm cortical cyst is present in the anterior aspect of the inferior renal pole, and 1.9 cm parapelvic cyst in the interpolar region. GI tract: A 3.0 cm lipoma is present in the descending duodenum. No dilation or wall thickening. Appendix is normal. Lymph nodes: No abdominal lymphadenopathy. Mesentery/Peritoneum: No ascites or mass. Vasculature: - Abdominal aorta and iliac arteries: Atherosclerotic calcifications without aneurysm. - Celiac and SMA: Patent without stenosis. - Portal venous system (SMV, splenic vein, portal vein and branches): Patent. - Hepatic veins: Patent. - Other: None Bones/Soft Tissues: Lower lumbar spondylosis. Lower Thorax: No consolidation or pleural effusion Localizer images: No additional findings IMPRESSION: 1. Indeterminate 4.8 cm mass in the right adrenal, worrisome for adrenal malignancy. If no cancer history, consider resection because of the possibility of an adrenocortical carcinoma. If there is a cancer history consider PET or biopsy the 1.1 cm left retroperitoneal lymph node demonstrate maintained central fatty hilum. 2. 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 ASSESSMENT/PLAN: Patient presents for follow up of evaluation of b/l adrenal nodules Labs indicate excess cortisol production. ARR within normal, metanephrines and catecholamines acceptable. CT adrenal results demonstrate the largest nodule being 4.8 cm in size, with indeterminate characteristics. The other right nodule, and both left nodule are less than 4 cm and are consistent with features of adenoma. I reviewed with her that given the characteristics of the largest nodule, right adrenalectomy is the recommendation. Excess cortisol could be likely coming from this nodule given the size, but Adrenal venous sampling might be necessary to confirm this due to existence of b/l nodules. Also reviewed possibility of steroid use for few days after surgery if the same adrenal is producing excess cortisol. If rather the left adrenal gland is causing cortisol production, then medical treatment might be preferred due to only adrenal gland, or b/l adrenalectomy in rare cases depending onclinical burden Referral to endocrine surgery given- to Dr. Rogel Advised that she might need more lab work, once seen by surgery All questions welcomed and answered to satisfaction The assessment and benefits/risks of the plan were discussed with the patient who expressed understanding and was agreeable to that which is noted above. Follow up in 2 months Medical Decision Making: Problems: Moderate: New problem with uncertain prognosis Data: Unique test result(s) reviewed: 3+ Risk: High: Decision on elective major surgery w/ risk factors and High risk from testing/treatment Medical Decision Making Level: 4 - Moderate SIGNATURE: Nina Lerner MD DATE of SERVICE: October 29, 2024 TIME of SERVICE: 4:00 PM documented in [facility] encounterBet[facility] Telephone encounter Note * Telephone Encounter - Erick Lemus MD - 10/22/2024 7:47 AM EDT Her last OV for anxiety and depression was about 1 year ago. Needs OV to recheck symptoms and discuss treatment options. [facility]03-18-20[facility] Miscellaneous Notes* Telephone Encounter - Erick Lemus MD - 10/22/2024 7:47 AM EDT Her last OV for anxiety and depression was about 1 year ago. Needs OV to recheck symptoms and discuss treatment options. documented in this encounterBethes[facility]03-14-[facility]25 Telephone encounter Note * Telephone Encounter - Cara Sanders LPN - 10/18/2024 2:36 PM EDT Booklet mailed as requested. Cara Sanders LPN [facility]03-14-20[facility] Miscellaneous Notes* Telephone Encounter - Cara Sanders LPN - 10/18/2024 2:36 PM EDT Booklet mailed as requested. Cara Sanders LPN * Telephone Encounter - Deepti SpanlgerSUMAN - 10/18/2024 12:49 PM EDT Images from the original note were not included. Contains abnormal data LIPID PANEL, NONFASTING Order: [id number] Status: Final result Dx: Mixed hyperlipidemia Test Result Released: Yes (seen) 2 Result Notes View Follow-Up Encounter 1 Topic Component Ref Range & Units 4 d ago 3 yr ago Total Cholesterol, Nonfasting <200 mg/dL 166 281 High CM Comment: <200 mg/dL, Desirable 200-239 mg/dL, Borderline high >239 mg/dL, High Triglycerides, Nonfasting <150 mg/dL 102 211 High CM Comment: <150 mg/dL, Normal 150-199 mg/dL, Borderline high 200-499 mg/dL, High >499 mg/dL, Very high HDL Cholesterol, Nonfasting >39 mg/dL 45 40 CM Comment: 40-59 mg/dL, Acceptable >59 mg/dL, High: Negative risk factor for coronary heart disease <40 mg/dL, Low: Positive risk factor for coronary heart disease LDL Cholesterol, Nonfasting <100 mg/dL 101 High 199 High CM Comment: <100 mg/dL, Optimal 100-129 mg/dL, Near optimal/above optimal 130-159 mg/dL, Borderline high 160-189 mg/dL, High >189 mg/dL, Very high Secondary prevention optimal LDL Cholesterol levels are recommended to be < 70 mg/dL Non HDL Cholesterol, Nonfasting <130 mg/dL 121 241 High CM Comment: <130 mg/dL, Optimal 130-159 mg/dL, Near optimal/above optimal 160-189 mg/dL, Borderline high 190-219 mg/dL, High >219 mg/dL, Very high Secondary prevention optimal non HDL Cholesterol levels are recommended to be <100 mg/dL VLDL Cholesterol, Nonfasting <30 mg/dL 20 42 High Total Chol/HDL Ratio, Nonfasting <5.10 mg/dL 3.69 7.03 High LDL/HDL Ratio, Nonfasting <2.54 mg/dL 2.24 4.98 High CM Comment: Reference: 1. National Cholesterol Education Program ATP III Guideline At-A-Glance Quick Desk Reference: National Heart, Lung, and Blood [place]. National Institutes of Health. 2001: NIH Publication No. 01-3305. 2. An International Atherosclerosis Society position paper: global recommendations for the management of dyslipidemia: executive summary, Atherosclerosis. 2014: 232(2):410-413. Resulting Agency [facility] Specimen Collected: 10/14/24 3:03 PM EDT Last Resulted: 10/15/24 12:00 AM EDT Lab Flowsheet Order Details View Encounter Lab and Collection Details Routing Result History View All Conversations on this Encounter CM=Additional comments Result Care Coordination Result Notes Sintia Jacobson LPN 10/18/2024 11:51 AM EDT Back to Top Telephone call placed to patient. Message left to call office back for update. Erick Lemus MD 10/17/2024 9:10 AM EDT A1c in prediabetic range at 6. Recommend low carb diet, regular exercise, and weight loss. Can mailbooklet on meal planning recheck in 3-6 months. Other labs unremarkable. Patient returned call and went over results, notes from Dr Lemus with understanding. Patient would like the meal planning booklet mailed to her home address please, it is correct in the computer. documented in this encounterBethes[facility]03-14-[facility]25 Telephone encounter Note * Telephone Encounter - Deepti Spangler LPN - 10/18/2024 12:49 PM EDT Images from the original note were not included. Contains abnormal data LIPID PANEL, NONFASTING Order: [id number] Status: Final result Dx: Mixed hyperlipidemia Test Result Released: Yes (seen) 2 Result Notes View Follow-Up Encounter 1 Topic Component Ref Range & Units 4 d ago 3 yr ago Total Cholesterol, Nonfasting <200 mg/dL 166 281 High CM Comment: <200 mg/dL, Desirable 200-239 mg/dL, Borderline high >239 mg/dL, High Triglycerides, Nonfasting <150 mg/dL 102 211 High CM Comment: <150 mg/dL, Normal 150-199 mg/dL, Borderline high 200-499 mg/dL, High >499 mg/dL, Very high HDL Cholesterol, Nonfasting >39 mg/dL 45 40 CM Comment: 40-59 mg/dL, Acceptable >59 mg/dL, High: Negative risk factor for coronary heart disease <40 mg/dL, Low: Positive risk factor for coronary heart disease LDL Cholesterol, Nonfasting <100 mg/dL 101 High 199 High CM Comment: <100 mg/dL, Optimal 100-129 mg/dL, Near optimal/above optimal 130-159 mg/dL, Borderline high 160-189 mg/dL, High >189 mg/dL, Very high Secondary prevention optimal LDL Cholesterol levels are recommended to be < 70 mg/dL Non HDL Cholesterol, Nonfasting <130 mg/dL 121 241 High CM Comment: <130 mg/dL, Optimal 130-159 mg/dL, Near optimal/above optimal 160-189 mg/dL, Borderline high 190-219 mg/dL, High >219 mg/dL, Very high Secondary prevention optimal non HDL Cholesterol levels are recommended to be <100 mg/dL VLDL Cholesterol, Nonfasting <30 mg/dL 20 42 High Total Chol/HDL Ratio, Nonfasting <5.10 mg/dL 3.69 7.03 High LDL/HDL Ratio, Nonfasting <2.54 mg/dL 2.24 4.98 High CM Comment: Reference: 1. National Cholesterol Education Program ATP III Guideline At-A-Glance Quick Desk Reference: National Heart, Lung, and Blood [place]. National Institutes of Health. 2001: NIH Publication No. 01-3305. 2. An International Atherosclerosis Society position paper: global recommendations for the management of dyslipidemia: executive summary, Atherosclerosis. 2014: 232(2):410-413. Resulting Agency [facility] Specimen Collected: 10/14/24 3:03 PM EDT Last Resulted: 10/15/24 12:00 AM EDT Lab Flowsheet Order Details View Encounter Lab and Collection Details Routing Result History View All Conversations on this Encounter CM=Additional comments Result Care Coordination Result Notes Sintia Jacobson LPN 10/18/2024 11:51 AM EDT Back to Top Telephone call placed to patient. Message left to call office back for update. Erick Lemus MD 10/17/2024 9:10 AM EDT A1c in prediabetic range at 6. Recommend low carb diet, regular exercise, and weight loss. Can mailbooklet on meal planning recheck in 3-6 months. Other labs unremarkable. Patient returned call and went over results, notes from Dr Lemus with understanding. Patient would like the meal planning booklet mailed to her home address please, it is correct in the computer. [facility]03-[facility] Telephone encounter Note* Telephone Encounter - Jovita Azul RN - 10/16/2024 9:37 AM EDT Pt is scheduled with Dr. Lerner on 10/29/2024. Sent her a MC message reminding her to bring urinelab results as ordered at previous visit in June. Jovita Azul RN October 16, 2024 9:37 AM [facility]03-[facility] Miscellaneous Notes* Telephone Encounter - Jovita Azul RN - 10/16/2024 9:37 AM EDT Pt is scheduled with Dr. Lerner on 10/29/2024. Sent her a MC message reminding her to bring urinelab results as ordered at previous visit in June. Jovita Azul RN October 16, 2024 9:37 AM * Telephone Encounter - Nina Lerner MD - 10/16/2024 9:01 AM EDT Please let the patient know to follow up at the soonest possible. She should bring with her, the results of labs recommended on last visit documented in this encounterBethes[facility]03-12-2025 Telephone encounter Note * Telephone Encounter - Nina Lerner MD - 10/16/2024 9:01 AM EDT Please let the patient know to follow up at the soonest possible. She should bring with her, the results of labs recommended on last visit [facility]03-[facility] History of Present illness Narrative* Rylie Petit RT(R) - 10/14/2024 3:00 PM EDT Radiology Service Progress Note DATE OF SERVICE: October 14, 2024 TIME: 3:38 PM PATIENT IDENTITY VERIFICATION COMPLETED USING TWO (2) STANDARD IDENTIFIERS: Name and Date of confirmed by patient verbally. FALL SCREENING: Has the patient had 2 falls in the last year or 1 fall with injury or currently using an Ambulatory Assistive Device (Walker, Cane, Wheelchair, Crutches, etc.)? No PATIENT GENDER DATA: Assigned female at . status: : No status:NO. PATIENT RELEVANT IMPLANT DATA REVIEWED: Yes PATIENT PRESENTS WITH AN IMPLANTABLE OR ATTACHED MOTOR COACH SUPERVISOR: No ALLERGIES: Reviewed and unchanged CONTRAST ALLERGY: NO. EXAM: CT -CONTRAST INDUCED NEPHROPATHY RISK FACTORS: Not applicable CREATININE: Creatinine Date Value Ref Range Status 02/04/2021 0.60 0.58 - 0.96 mg/dL Final eGFR-All Other Races Date Value Ref Range Status 02/04/2021 >60 . Final Comment: eGFR (Estimated GFR) Units of measure: mL/min/1.73 meters squared eGFR is derived from the reexpressed MDRD Study equation using the following parameters: serum creatinine, age, gender and race. The creatinine assay has been calibrated to be traceable to IDMS. An eGFR <60 mL/min/1.73m2 for >3 months is consistent with chronic kidney disease. Refer to KDOQI guidelines for clinical interpretation. In patients with unstable renal function, e.g. those with acute kidney injury, the eGFR may not accurately reflect actual GFR. eGFR- Date Value Ref Range Status 02/04/2021 >60 Final P.O.C.T. RESULTS: POC done: Yes, See Lab Tab October 14, 2024 TREATMENT: N/A PERIPHERAL IV DATA: Ambulatory: A peripheral IV was started in the Left antecubital site with a Angio cath: 22 gauge. RADIOLOGY DEPARTMENT: CT; Exam(s) Completed: Adrenal SIGNATURE: RT Maude(R) PATIENT NAME: Violet Chin DATE: October 14, 2024 TIME: 3:38 PM documented in this encounterBethesda [facility]03-10-2025 NoteHNO ID: [id number] Author: RYLIE PETIT RT(R) Service: ? Author Type: [employer] Type: Progress Notes Filed: 10/14/2024 15:38 Note Text: Radiology Service Progress Note DATE OF SERVICE: October 14, 2024 TIME: 3:38 PM PATIENT IDENTITY VERIFICATION COMPLETED USING TWO (2) STANDARD IDENTIFIERS: Name and Date of confirmed by patient verbally. FALL SCREENING: Has the patient had 2 falls in the last year or 1 fall with injury or currently using an Ambulatory Assistive Device (Walker, Cane, Wheelchair, Crutches, etc.)? No PATIENT GENDER DATA: Assigned female at . status: : No status: NO. PATIENT RELEVANT IMPLANT DATA REVIEWED: Yes PATIENT PRESENTS WITH AN IMPLANTABLE OR ATTACHED MOTOR COACH SUPERVISOR: No ALLERGIES: Reviewed and unchanged CONTRAST ALLERGY: NO. EXAM: CT -CONTRAST INDUCED NEPHROPATHY RISK FACTORS: Not applicable CREATININE: Creatinine Date Value Ref Range Status 02/04/2021 0.60 0.58 - 0.96 mg/dL Final eGFR-All Other Races Date Value Ref Range Status 02/04/2021 >60 . Final Comment: eGFR (Estimated GFR) Units of measure: mL/min/1.73 meters squared eGFR is derived from the reexpressed MDRD Study equation using the following parameters: serum creatinine, age, gender and race. The creatinine assay has been calibrated to be traceable to IDMS. An eGFR <60 mL/min/1.73m2 for >3 months is consistent with chronic kidney disease. Refer to KDOQI guidelines for clinical interpretation. In patients with unstable renal function, e.g. those with acute kidney injury, the eGFR may not accurately reflect actual GFR. eGFR- Date Value Ref Range Status 02/04/2021 >60 Final P.O.C.T. RESULTS: POC done: Yes, See Lab Tab October 14, 2024 TREATMENT: N/A PERIPHERAL IV DATA: Ambulatory: A peripheral IV was started in the Left antecubital site with a Angio cath: 22 gauge. RADIOLOGY DEPARTMENT: CT; Exam(s) Completed: Adrenal SIGNATURE: RT Maude(R) PATIENT NAME: Violet Chin DATE: October 14, 2024 TIME: 3:38 [facility]03-10-2025 Telephone encounter Note* Telephone Encounter - Glendy Gordon MA - 10/14/2024 11:16 AM EDT Left detailed message on secure [employer]. [facility]03-10-2025 Miscellaneous Notes* Telephone Encounter - Glendy Gordon MA - 10/14/2024 11:16 AM EDT Left detailed message on secure VM. * Telephone Encounter - Erick Lemus MD - 10/14/2024 9:53 AM EDT Reordered labs from 05/15 that were not completed. Can come in this week or after OV with Dr. Lerner depending on their recommendations. * Telephone Encounter - Mouna Gallardo - 10/14/2024 9:48 AM EDT Hello, Patient called in asking if she needs lab orders for Dr. Lemus and Dr. Lerner.I do not see any active orders. Please advise, thank you! Mouna. documented in this encounterBethesda [facility] Hospital03-10-2025 Telephone encounter Note * Telephone Encounter - Eve Dorman MA - 10/14/2024 9:55 AM EDT FYI only. Closed encounter. [facility]03-10-20[facility] Miscellaneous Notes* Telephone Encounter - Eve Dorman MA - 10/14/2024 9:55 AM EDT FYI only. Closed encounter. documented in this encounterBethesda [facility] Hospital03-10-2025 Telephone encounter Note * Telephone Encounter - Erick Lemus MD - 10/14/2024 9:53 AM EDT Reordered labs from 05/15 that were not completed. Can come in this week or after OV with Dr. Lerner depending on their recommendations. [facility]03-10-[facility] Telephone encounter Note* Telephone Encounter - Mouna Gallardo - 10/14/2024 9:48 AM EDT Hello, Patient called in asking if she needs lab orders for Dr. Lemus and Dr. Lerner.I do not see any active orders. Please advise, thank you! Mouna. [facility]03-07-2025 Telephone encounter Note* Telephone Encounter - Cara Sanders LPN - 10/11/2024 2:50 PM EST Phoned patient and reviewed reults and recommendations with her. She voiced understanding and referred to scheduling desk. Cara Sanders LPN [facility]03-07-2025 Miscellaneous Notes* Telephone Encounter - Cara Sanders LPN - 10/11/2024 2:50 PM EST Phoned patient and reviewed reults and recommendations with her. She voiced understanding and referred to scheduling desk. Cara Sanders LPN * Telephone Encounter - Erick Lemus MD - 10/11/2024 12:04 PM EST Screening mammogram incomplete. Needs additional imaging to further characterize asymmetry in rightand left breast. Diagnostic mammogram and US ordered. Please assist patient with scheduling. documented in this encounterBethesda [facility] Hospital03-07-2025 Telephone encounter Note * Telephone Encounter - Erick Lemus MD - 10/11/2024 12:04 PM EST Screening mammogram incomplete. Needs additional imaging to further characterize asymmetry in rightand left breast. Diagnostic mammogram and US ordered. Please assist patient with scheduling. [facility]03-07-[facility] History of Present illness Narrative* Patriico Silva Mammo Tech - 10/11/2024 9:50 AM EST Radiology Service Progress Note PATIENT NAME: Violet Chin DATE OF SERVICE: October 11, 2024 TIME: 10:03 AM PATIENT IDENTITY VERIFICATION COMPLETED USING TWO (2) IDENTIFIERS: Name and Date of confirmedby patient verbally. FALL SCREENING: Has the patient had 2 falls in the last year or 1 fall with injury or currently using an Ambulatory Assistive Device (Walker, Cane, Wheelchair, Crutches, etc.)? No PATIENT GENDER DATA: Assigned female at . status: : No status:NO. PATIENT RELEVANT IMPLANT DATA REVIEWED: Not Applicable PATIENT PRESENTS WITH AN IMPLANTABLE OR ATTACHED MOTOR COACH SUPERVISOR: No RADIOLOGY DEPARTMENT: Mammography PERIPHERAL IV DATA: Not applicable SIGNED BY: Jessica Kahno Ney October 11, 2024 10:03 AM documented in this encounterBethesda North Hospital03-07-2025 NoteHNO ID: [id number] Author: PATRICIO SILVA Mammo Ney Service: ? Author Type: [employer] Type: Progress Notes Filed: 10/11/2024 10:04 Note Text: Radiology Service Progress Note PATIENT NAME: Violet Chin DATE OF SERVICE: October 11, 2024 TIME: 10:03 AM PATIENT IDENTITY VERIFICATION COMPLETED USING TWO (2) IDENTIFIERS: Name and Date of confirmed by patient verbally. FALL SCREENING: Has the patient had 2 falls in the last year or 1 fall with injury or currently using an Ambulatory Assistive Device (Walker, Cane, Wheelchair, Crutches, etc.)? No PATIENT GENDER DATA: Assigned female at . status: : No status: NO. PATIENT RELEVANT IMPLANT DATA REVIEWED: Not Applicable PATIENT PRESENTS WITH AN IMPLANTABLE OR ATTACHED MOTOR COACH SUPERVISOR: No RADIOLOGY DEPARTMENT: Mammography PERIPHERAL IV DATA: Not applicable SIGNED BY: Patricio Silva [employer] Softwaremelissa Brewster October 11, 2024 10:03 [facility]11-25-2024 Telephone encounter Note* Telephone Encounter - Blank Grande RN - 07/01/2024 4:49 PM EST Called pt and notified of below from Aissatou Mac. Per EGD note 04/17/[address] Howard, it says exactly what Aissatou states. Pt states maybe she misunderstood the architect in training. [facility] Miscellaneous Notes* Telephone Encounter - Blank Grande RN - 07/01/2024 4:49 PM EST Called pt and notified of below from Aissatou Mac. Per EGD note 04/17/[address] Howard, it says exactly what Aissatou states. Pt states maybe she misunderstood the architect in training. * Telephone Encounter - Aissatou Mac APRN.CNP - 07/01/2024 4:34 PM EST It said on her discharge record to take Carafate for only two weeks and take the Protonix twice a day for 12 weeks. Aissatou Mac APRN.CNP * Telephone Encounter - Sydney Juarez LPN - 07/01/2024 4:12 PM EST Spoke with pt regarding the Carafate that was denied. Pt reports she was instructed by the [employer] Architect to continue since she is taking this for ulcers they are trying to get healed. Please advise pt back. Sydney Juarez LPN The patient has been identified by name and date of : Yes Caregiver verified no other encounters exist for this prescription request: Yes Caregiver confirmed with patient/requestor that no other refills are due, in the near future, with this provider at this time: Yes The last office visit in the department: 05/15/2024 Does the patient have a future office visit with this provider/department: No Visit date not found Requested Prescriptions Pending Prescriptions Disp Refills sucralfate (CARAFATE) 1 gram tablet Sig: Take 1 tablet by mouth four times daily. Sydney Juarez LPN July 01, 2024 4:21 PM documented in this encounterBet[facility] Telephone encounter Note * Telephone Encounter - Aissatou Mac APRN.CNP - 07/01/2024 4:34 PM EST It said on her discharge record to take Carafate for only two weeks and take the Protonix twice a day for 12 weeks. Aissatou Mac APRN.REEMA [facility] Work Phone: 1(311) 202-355711-25-2024 Telephone encounter Note* Telephone Encounter - Sydney Juarez LPN - 07/01/2024 4:12 PM EST Spoke with pt regarding the Carafate that was denied. Pt reports she was instructed by the [employer] to continue since she is taking this for ulcers they are trying to get healed. Please advise pt back. Sydney Juarez LPN The patient has been identified by name and date of : Yes Caregiver verified no other encounters exist for this prescription request: Yes Caregiver confirmed with patient/requestor that no other refills are due, in the near future, with this provider at this time: Yes The last office visit in the department: 05/15/2024 Does the patient have a future office visit with this provider/department: No Visit date not found Requested Prescriptions Pending Prescriptions Disp Refills sucralfate (CARAFATE) 1 gram tablet Sig: Take 1 tablet by mouth four times daily. Sydney Juarez LPN July 01, 2024 4:21 PM [facility] Telephone encounter Note* Telephone Encounter - Deepti Spangler LPN - 07/01/2024 10:14 AM EST The patient has been identified by name and date of : Yes Caregiver verified no other encounters exist for this prescription request: Yes Caregiver confirmed with patient/requestor that no other refills are due, in the near future, with this provider at this time: Yes The last office visit in the department: 05/15/2024 Does the patient have a future office visit with this provider/department: No setting up for financial clearance to reschedule her for her physical with PCP Requested Prescriptions Pending Prescriptions Disp Refills lisinopril-hydroCHLOROthiazide (ZESTORETIC) 10-12.5 mg per tablet 90 tablet 1 Sig: Take 1 tablet by mouth once daily. sertraline (ZOLOFT) 100 mg tablet 90 tablet 1 Sig: Take 1 tablet by mouth once daily. Deepti Spangler LPN July 01, 2024 10:16 AM [facility]11-25-2024 Miscellaneous Notes* Telephone Encounter - Deepti Spangler LPN - 07/01/2024 10:14 AM EST The patient has been identified by name and date of : Yes Caregiver verified no other encounters exist for this prescription request: Yes Caregiver confirmed with patient/requestor that no other refills are due, in the near future, with this provider at this time: Yes The last office visit in the department: 05/15/2024 Does the patient have a future office visit with this provider/department: No setting up for financial clearance to reschedule her for her physical with PCP Requested Prescriptions Pending Prescriptions Disp Refills lisinopril-hydroCHLOROthiazide (ZESTORETIC) 10-12.5 mg per tablet 90 tablet 1 Sig: Take 1 tablet by mouth once daily. sertraline (ZOLOFT) 100 mg tablet 90 tablet 1 Sig: Take 1 tablet by mouth once daily. Deepti Spangler LPN July 01, 2024 10:16 AM documented in this encounterBethes[facility]11-22-2024 Instructions* Patient Instructions* Nina Lerner MD - 06/28/2024 8:41 AM EST Please do blood labs on two different days DAY 1: Dhea-s, ACTH, Aldosterone/renin, potassium-can drop the 24 hr urine sample on day 1 DAY 2: Dexamethasone suppression test Directions for dexamethasone suppression test: 1. Take dexamethasone 1-mg tab by mouth at 11 PM the evening before your test. 2. Go to the lab the next morning and have your blood drawn at ~8 AM. *Do not eat or drink anythingother than water from the time you take dexamethasone to the time you get your blood drawn. 3. If either of the following situations happen, DO NOT HAVE YOUR BLOOD DRAWN: A. You forget to take the pill at 11 PM the evening before B. You cannot get your blood drawn the next morning at ~8 AM C. If either situation happens, please call me to let me know COLLECTING URINE FOR 24 HOURS: 1. Best done the morning of one day to the morning of the next day ( two consecutive mornings). 2. Imperative that you arise from bed at the exact same time on Day 1 and Day 2. 3. When you arise on Day 1 you will have to urinate. This goes into the toilet and is flushed away. 4. Every time from then on for the remainder of Day 1 and at night Day 1 to Day 2, every drop of urine that you pass must go into the container that we will provide for you. 5. When you arise on Day 2 you will also have to urinate. This goes into the container and completes the urine collection. 6. The container should be kept refrigerated until it is turned in to the laboratory. 7. Bring the completed urine collection container to the laboratory as soon as possible. Please hold any supplements especially with biotin for atleast 3 days before labs are done documented in this encounterBethes[facility]11-22-2024 NoteHNO ID: [id number] Author: NINA LERNER MD Service: ? Author Type: Physician Type: Progress Notes Filed: 06/28/2024 14:54 Note Text: [facility] Initial Clinic Visit Note Patient referred by: Aissatou Mac APRN. [employer] Chief compliant: B/L Adrenal nodules History of Present Illness: Ms. Violet Chin is a 58 year old female coming today for bilateral adrenal nodules. She also has a hx of duodenal ulcers and is on protonix, carafate for the same History in brief, she underwent CT abdomen for abdominal pain when adrenal nodules were incidentally found in bilateral adrenal glands. She denied any recent significant unintentional changes in weight, other than weight loss of about 25 lbs with intermittent fasting/low carb diet, but has gained about 5 lbs after Denied any palpitations, tremors, sweaty episodes, headaches No concerns for easy bruising, stretch albert, proximal muscle weakness or excess facial.body hair Previous use of Steroids, oral, inhalers, injections: No chronic use Past Medical History: PAST MEDICAL HISTORY Diagnosis Date Anxiety and depression History of COVID-19 08/2020 HTN (hypertension) Lumbar herniated disc s/p laminectomy-pain free Marijuana use Mixed hyperlipidemia Obesity (BMI 30-39.9) Tobacco use Surgical History: PAST SURGICAL HISTORY Procedure Laterality Date SNGL 1986 SNGL 1987 SNGL 2000 EYE SURGERY HX 1972 correct lazy eye LAMINECTOMY W/O FFD 1/2 VERT SEG LUMBAR 2007 TUBAL LIGATION 2000 Family Medical History: FAMILY HISTORY Problem Relation Age of Onset COPD Mother No Known Problems Father No Known Problems Sister No Known Problems Sister No Known Problems Brother No Known Problems Brother Cancer Maternal Grandmother No Known Problems Daughter No Known Problems Daughter No Known Problems Son Adrenal Insufficiency No Family History Social History: Social History Tobacco Use Smoking status: Every Day Current packs/day: 1.00 Average packs/day: 1 pack/day for 30.0 years (30.0 ttl pk-yrs) Types: Cigarettes Passive exposure: Current Smokeless tobacco: Never Substance Use Topics Alcohol use: No Drug use: Not Currently Types: Marijuana Comment: occasionally- 2 times a year Allergies: ALLERGIES Allergen Reactions Prozac [Fluoxetine] GI Upset Current medications: Current Outpatient Medications Medication Sig pantoprazole DR (PROTONIX) 40 mg tablet Take 1 tablet by mouth every 12 hours. sucralfate (CARAFATE) 1 gram tablet Take 1 g by mouth four times daily. BIOTIN ORAL Take 1 tablet by mouth once daily. buPROPion SR (WELLBUTRIN SR) 150 mg 12 hr tablet Take 1 tablet by mouth two times a day. sertraline (ZOLOFT) 100 mg tablet Take 1 tablet by mouth once daily. atorvastatin (LIPITOR) 80 mg tablet Take 1 tablet by mouth daily at bedtime. For cholesterol. lisinopril-hydroCHLOROthiazide (ZESTORETIC) 10-12.5 mg per tablet Take 1 tablet by mouth once daily. No current facility-administered medications for this visit. Review of Systems: 10 point ROS was reviewed and negative unless indicated in the HPI Physical exam: BP 158/92 (BP Site: Right Arm, BP Position: Sitting, BP Cuff Size: Regular Adult) Pulse 63 Resp 20 Ht 157.5 cm (5' 2) Wt 82.6 kg (182 lb 3.2 oz) SpO2 98% BMI 33.32 kg/m? General Appearance: Well appearing, alert, in no acute distress, well-hydrated, well nourished, obese body habitus Skin: Skin color, texture, turgor normal, no suspicious rashes or lesions. Eyes: Anicteric sclera. Extraocular movements are intact. Neck: Supple, no adenopathy; thyroid symmetric, normal size, no bruits. Lungs: unlabored breathing on room air Heart: Regular leatha and rhythm Abdomen: no typical concerning features noted, obese abdomen Extremities: No deformities, edema, skin discoloration, clubbing or cyanosis. Musculoskeletal: No joint swelling, deformity, or tenderness, weakness Peripheral Pulses: Normal. Neurologic: Gait normal. Reflexes normal and symmetric. Previous laboratory results: No pertinent labs available Imaging: Previous Adrenal CT: ASSESSMENT/PLAN: Patient presents for evaluation of an adrenal nodule. The main goal of this investigation is to evaluate if this nodule is malignant/benign and if it is functioning/non functioning. From the CT abdomen, the adrenal nodules are measured as 4 cm on the right and 1 cm on the left however to better evaluate these nodules we will need specific imaging. I was not able to review the images as this was done at [facility]. We shall check for Pheo as well, due to lack of appropriate images, although she does not have any symptoms -- repeat CT scan with dedicated images for the adrenals for evaluation of size and phenotype of the nodule -- urine catecholamines and metanephrines - 24 hour collection -- aldosterone and renin (more content not included)...[facility]11-22-2024 History of Present illness Narrative* Nina Lerner MD - 06/28/2024 8:21 AM EST Images from the original note were not included. [facility] Initial Clinic Visit Note Patient referred by: Aissatou Mac APRN. [employer] Chief compliant: B/L Adrenal nodules History of Present Illness: Ms. Violet Chin is a 58 year old female coming today for bilateral adrenal nodules. She also has a hx of duodenal ulcers and is on protonix, carafate for the same History in brief, she underwent CT abdomen for abdominal pain when adrenal nodules were incidentally found in bilateral adrenal glands. She denied any recent significant unintentional changes in weight, other than weight loss of about 25 lbs with intermittent fasting/low carb diet, but has gained about 5 lbs after Denied any palpitations, tremors, sweaty episodes, headaches No concerns for easy bruising, stretch albert, proximal muscle weakness or excess facial.body hair Previous use of Steroids, oral, inhalers, injections: No chronic use Past Medical History: PAST MEDICAL HISTORY Diagnosis Date Anxiety and depression History of COVID-19 08/2020 HTN (hypertension) Lumbar herniated disc s/p laminectomy-pain free Marijuana use Mixed hyperlipidemia Obesity (BMI 30-39.9) Tobacco use Surgical History: PAST SURGICAL HISTORY Procedure Laterality Date SNGL 1986 SNGL 1987 SNGL 2000 EYE SURGERY HX 1972 correct lazy eye LAMINECTOMY W/O FFD 08/08 VERT SEG LUMBAR 2007 TUBAL LIGATION 2000 Family Medical History: FAMILY HISTORY Problem Relation Age of Onset COPD Mother No Known Problems Father No Known Problems Sister No Known Problems Sister No Known Problems Brother No Known Problems Brother Cancer Maternal Grandmother No Known Problems Daughter No Known Problems Daughter No Known Problems Son Adrenal Insufficiency No Family History Social History: Social History Tobacco Use Smoking status: Every Day Current packs/day: 1.00 Average packs/day: 1 pack/day for 30.0 years (30.0 ttl pk-yrs) Types: Cigarettes Passive exposure: Current Smokeless tobacco: Never Substance Use Topics Alcohol use: No Drug use: Not Currently Types: Marijuana Comment: occasionally- 2 times a year Allergies: ALLERGIES Allergen Reactions Prozac [Fluoxetine] GI Upset Current medications: Current Outpatient Medications Medication Sig pantoprazole DR (PROTONIX) 40 mg tablet Take 1 tablet by mouth every 12 hours. sucralfate (CARAFATE) 1 gram tablet Take 1 g by mouth four times daily. BIOTIN ORAL Take 1 tablet by mouth once daily. buPROPion SR (WELLBUTRIN SR) 150 mg 12 hr tablet Take 1 tablet by mouth two times a day. sertraline (ZOLOFT) 100 mg tablet Take 1 tablet by mouth once daily. atorvastatin (LIPITOR) 80 mg tablet Take 1 tablet by mouth daily at bedtime. For cholesterol. lisinopril-hydroCHLOROthiazide (ZESTORETIC) 10-12.5 mg per tablet Take 1 tablet by mouth once daily. No current facility-administered medications for this visit. Review of Systems: 10 point ROS was reviewed and negative unless indicated in the HPI Physical exam: BP 158/92 (BP Site: Right Arm, BP Position: Sitting, BP Cuff Size: Regular Adult) Pulse 63 Resp20 Ht 157.5 cm (5' 2) Wt 82.6 kg (182 lb 3.2 oz) SpO2 98% BMI 33.32 kg/m General Appearance: Well appearing, alert, in no acute distress, well-hydrated, well nourished, obese body habitus Skin: Skin color, texture, turgor normal, no suspicious rashes or lesions. Eyes: Anicteric sclera. Extraocular movements are intact. Neck: Supple, no adenopathy; thyroid symmetric, normal size, no bruits. Lungs: unlabored breathing on room air Heart: Regular leatha and rhythm Abdomen: no typical concerning features noted, obese abdomen Extremities: No deformities, edema, skin discoloration, clubbing or cyanosis. Musculoskeletal: No joint swelling, deformity, or tenderness, weakness Peripheral Pulses: Normal. Neurologic: Gait normal. Reflexes normal and symmetric. Previous laboratory results: No pertinent labs available Imaging: Previous Adrenal CT: ASSESSMENT/PLAN: Patient presents for evaluation of an adrenal nodule. The main goal of this investigation is to evaluate if this nodule is malignant/benign and if it is functioning/non functioning. From the CT abdomen, the adrenal nodules are measured as 4 cm on the right and 1 cm on the left however to better evaluate these nodules we will need specific imaging. I was not able to review the images as this was done at [facility]. We shall check for Pheo as well, due to lack ofappropriate images, although she does not have any symptoms -- repeat CT scan with dedicated images for the adrenals for evaluation of size and phenotype of the nodule -- urine catecholamines and metanephrines - 24 hour collection -- aldosterone and renin, potassium, DHEA-s -- dexamethasone suppression test Instructions for all the above tests given verbally and in writing Briefly discussed indications for surgery, and if the nodules are found to be functional, we need further evaluation for lateralization to locate the target for surgery. At this time, it appears right one would be considered for surgery, but things might evolve as we do the above tests Follow up in 6 to 8 weeks after the above investigations are completed Medical Decision Making: Problems: Moderate: New problem with uncertain prognosis Data: Unique test result(s) reviewed: 1 Unique test(s) ordered: 3+ Independent interpretation of test from other physician/QHCP Risk: High: High risk from testing/treatment Medical Decision Making Level: 5 - High SIGNATURE: Nina Lerner MD DATE of SERVICE: June 28, 2024 TIME of SERVICE: 8:40 AM documented in this encounterBethesda [facility] Hospital11-22-2024 Telephone encounter Note * Telephone Encounter - Jovita Azul RN - 06/28/2024 8:12 AM EST Prescription Refill Information The patient has been identified by name and date of : Yes Caregiver verified no other encounters exist for this prescription request: Yes Caregiver confirmed with patient/requestor that no other refills are due, in the near future, with this provider at this time: Yes Requested Prescriptions Pending Prescriptions Disp Refills sucralfate (CARAFATE) 1 gram tablet 360 tablet 0 Sig: Take 1 tablet by mouth four times daily. Jovita Azul RN June 28, 2024 8:12 AM [facility]-22-2024 Miscellaneous Notes* Telephone Encounter - Jovita Azul RN - 06/28/2024 8:12 AM EST Prescription Refill Information The patient has been identified by name and date of : Yes Caregiver verified no other encounters exist for this prescription request: Yes Caregiver confirmed with patient/requestor that no other refills are due, in the near future, with this provider at this time: Yes Requested Prescriptions Pending Prescriptions Disp Refills sucralfate (CARAFATE) 1 gram tablet 360 tablet 0 Sig: Take 1 tablet by mouth four times daily. Jovita Azul RN June 28, 2024 8:12 AM documented in this encounterBethesda North Hospital10-22-2024 Telephone encounter Note * Telephone Encounter - Cara Sanders LPN - 05/28/2024 8:07 AM EDT VM left for patient to call to reschedule appointment. Advised her to send [facility] message if difficultyfinding sooner availability and we can assist with locating sooner appointment if needed. Cara Sanders LPN [facility]10-22-2024 Miscellaneous Notes* Telephone Encounter - Cara Sanders LPN - 05/28/2024 8:07 AM EDT VM left for patient to call to reschedule appointment. Advised her to send [facility] message if difficultyfinding sooner availability and we can assist with locating sooner appointment if needed. Cara Sanders LPN documented in this encounterBethesda North Hospital10-09-2024 History of Present illness Narrative* PodlogarAissatou APRN.LAND PLANNER - 05/15/2024 2:40 PM EDT 05/15/2024 Patient presents with: Hospital F/U: [facility] 04/18 for abdominal pain SUBJECTIVE: This is a 58 year old that is here today for Above Complaints. 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 Has not been taking her pantoprazole but not taking the Carafate as she was unclear on the medication. Denies fevers, chills, nausea, vomiting, diarrhea or constipation Incidentally found adrenal masses bilaterally with the right mass being 4 cm and left 2 cm. Recommended follow-up with endocrinology ER records reviewed PAST MEDICAL HISTORY Diagnosis Date Anxiety and depression History of COVID-19 08/2020 HTN (hypertension) Lumbar herniated disc s/p laminectomy-pain free Marijuana use Mixed hyperlipidemia Obesity (BMI 30-39.9) Tobacco use ALLERGIES Prozac [Fluoxetine] MEDICATIONS Current Outpatient Medications Medication Sig buPROPion SR (WELLBUTRIN SR) 150 mg 12 hr tablet Take 1 tablet by mouth two times a day. sertraline (ZOLOFT) 100 mg tablet Take 1 tablet by mouth once daily. atorvastatin (LIPITOR) 80 mg tablet Take 1 tablet by mouth daily at bedtime. For cholesterol. lisinopril-hydroCHLOROthiazide (ZESTORETIC) 10-12.5 mg per tablet Take 1 tablet by mouth once daily. biotin 5,000 mcg subl Dissolve under the tongue. No current facility-administered medications for this visit. Medications and allergies reviewed by this provider. SOCIAL HISTORY Social History Tobacco Use Smoking status: Every Day Current packs/day: 1.00 Average packs/day: 1 pack/day for 30.0 years (30.0 ttl pk-yrs) Types: Cigarettes Smokeless tobacco: Never Substance Use Topics Alcohol use: No Drug use: Not Currently Types: Marijuana Comment: occasionally- 2 times a year REVIEW OF SYSTEMS All other reviewed and negative other than HPI. OBJECTIVE: BP 138/80 Pulse (!) 54 Resp 18 Wt 81.2 kg (179 lb 0.2 oz) SpO2 98% BMI 31.96 kg/m . Vitalsigns reviewed by this provider. APPEARANCE Well appearing, alert, in no acute distress, well-hydrated, well nourished. EYES conjunctiva and sclera normal. HEART RRR with normal S1 and S2, no murmurs, no gallops, no JVD appreciated LUNG clear to auscultation. No wheezes, rhonchi or rales ABDOMEN bowel sounds normoactive, no bruits, soft, non-tender, non-distended, No rebound tendernessor guarding EXTREMITIES Extremities normal, No deformities, No skin discoloration, and No edema SKIN Skin color, texture, turgor normal, no suspicious rashes or lesions to exposed skin Hepatitis C Screening Never done HIV Screening Never done Hepatitis B Vaccine(1 of 3 - 19+ 3-dose series) Never done Cervical Cancer Screening Never done Mammogram Screening Never done Colorectal Cancer Screening Never done Lung Cancer Screening Never done Shingrix Vaccine(1 of 2) Never done Pneumococcal Vaccine(2 of 2 - PCV) due on 03/15/2020 Diabetes Screening due on 02/05/2024 Influenza Vaccine(1) due on 04/07/2024 Covid-19 Vaccine(3 - 2023- season) due on 04/07/2024 BP Controlled (<130/80) due on 01/16/2025 Annual PCP Team Chronic Disease Visit due on 05/15/2025 Lipid Screening due on 02/04/2026 DTaP,Tdap,Td Vaccine(3 - Td or Tdap) due on 01/05/2034 ASSESSMENT/PLAN: 1. Hospital discharge follow-up - ICD9: V67.59, ICD10: Z09 (primary diagnosis) - improved - CONSULT TO ENDOCRINOLOGY 2. Mass of both adrenal glands (HCC) - ICD9: 255.8, ICD10: E27.8 - CONSULT TO ENDOCRINOLOGY 3. Mixed hyperlipidemia - ICD9: 272.2, ICD10: E78.2 - Control undetermined, due for labs - Continue current medications - Counseled on healthy diet and regular exercise - Discussed need for and benefit of weight loss. BMI 31.96 kg/(m^2) - Follow up for routine visit - LIPID PANEL BASIC 4. Elevated blood sugar - ICD9: 790.29, ICD10: R73.9 - HEMOGLOBIN A1C 5. Adrenal mass 1 cm to 4 cm in diameter (HCC) - ICD9: 255.8, ICD10: E27.8 - CONSULT TO ENDOCRINOLOGY 6. Hypokalemia - ICD9: 276.8, ICD10: E87.6 - low on discharge - COMPREHENSIVE METABOLIC PANEL Aissatou Mac APRN.CNP Prescription instructions reviewed with patient as applicable. Patient advised if symptoms do not improve or if symptoms worsen sooner, to contact their primary care physician. Potential red flag symptoms discussed with the patient. Reviewed appropriate action plan to take if red flag symptoms occur. Patient agreeable to treatment plan. Medical Decision Making: Problems: Moderate: New problem with uncertain prognosis and 2+ stable chronic illnesses Data: Unique test result(s) reviewed: 3+ Unique test(s) ordered: 2 Risk: Moderate: Moderate risk from testing/treatment Medical Decision Making Level: 4 - Moderate documented in this encounterBethesda [facility] Hospital10-09-2024 NoteHNO ID: [id number] Author: AISSATOU MAC APRN.CNP Service: ? Author Type: Nurse Practitioner Type: Progress Notes Filed: 06/28/2024 08:33 Note Text: 05/15/2024 Patient presents with: Hospital F/U: [facility] 04/18 for abdominal pain SUBJECTIVE: This is a 58 year old that is here today for Above Complaints. 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 Has not been taking her pantoprazole but not taking the Carafate as she was unclear on the medication. Denies fevers, chills, nausea, vomiting, diarrhea or constipation Incidentally found adrenal masses bilaterally with the right mass being 4 cm and left 2 cm. Recommended follow-up with endocrinology ER records reviewed PAST MEDICAL HISTORY Diagnosis Date Anxiety and depression History of COVID-19 08/2020 HTN (hypertension) Lumbar herniated disc s/p laminectomy-pain free Marijuana use Mixed hyperlipidemia Obesity (BMI 30-39.9) Tobacco use ALLERGIES Prozac [Fluoxetine] MEDICATIONS Current Outpatient Medications Medication Sig buPROPion SR (WELLBUTRIN SR) 150 mg 12 hr tablet Take 1 tablet by mouth two times a day. sertraline (ZOLOFT) 100 mg tablet Take 1 tablet by mouth once daily. atorvastatin (LIPITOR) 80 mg tablet Take 1 tablet by mouth daily at bedtime. For cholesterol. lisinopril-hydroCHLOROthiazide (ZESTORETIC) 10-12.5 mg per tablet Take 1 tablet by mouth once daily. biotin 5,000 mcg subl Dissolve under the tongue. No current facility-administered medications for this visit. Medications and allergies reviewed by this provider. SOCIAL HISTORY Social History Tobacco Use Smoking status: Every Day Current packs/day: 1.00 Average packs/day: 1 pack/day for 30.0 years (30.0 ttl pk-yrs) Types: Cigarettes Smokeless tobacco: Never Substance Use Topics Alcohol use: No Drug use: Not Currently Types: Marijuana Comment: occasionally- 2 times a year REVIEW OF SYSTEMS All other reviewed and negative other than HPI. OBJECTIVE: BP 138/80 Pulse (!) 54 Resp 18 Wt 81.2 kg (179 lb 0.2 oz) SpO2 98% BMI 31.96 kg/m? . Vital signs reviewed by this provider. APPEARANCE Well appearing, alert, in no acute distress, well-hydrated, well nourished. EYES conjunctiva and sclera normal. HEART RRR with normal S1 and S2, no murmurs, no gallops, no JVD appreciated LUNG clear to auscultation. No wheezes, rhonchi or rales ABDOMEN bowel sounds normoactive, no bruits, soft, non-tender, non-distended, No rebound tenderness or guarding EXTREMITIES Extremities normal, No deformities, No skin discoloration, and No edema SKIN Skin color, texture, turgor normal, no suspicious rashes or lesions to exposed skin Hepatitis C Screening Never done HIV Screening Never done Hepatitis B Vaccine(1 of 3 - 19+ 3-dose series) Never done Cervical Cancer Screening Never done Mammogram Screening Never done Colorectal Cancer Screening Never done Lung Cancer Screening Never done Shingrix Vaccine(1 of 2) Never done Pneumococcal Vaccine(2 of 2 - PCV) due on 03/15/2020 Diabetes Screening due on 02/05/2024 Influenza Vaccine(1) due on 04/07/2024 Covid-19 Vaccine(3 - 2023- season) due on 04/07/2024 BP Controlled (<130/80) due on 01/16/2025 Annual PCP Team Chronic Disease Visit due on 05/15/2025 Lipid Screening due on 02/04/2026 DTaP,Tdap,Td Vaccine(3 - Td or Tdap) due on 01/05/2034 ASSESSMENT/PLAN: 1. Hospital discharge follow-up - ICD9: V67.59, ICD10: Z09 (primary diagnosis) - improved - CONSULT TO ENDOCRINOLOGY 2. Mass of both adrenal glands (HCC) - ICD9: 255.8, ICD10: E27.8 - CONSULT TO ENDOCRINOLOGY 3. Mixed hyperlipidemia - ICD9: 272.2, ICD10: E78.2 - Control undetermined, due for labs - Continue current medications - Counseled on healthy diet and regular exercise - Discussed need for and benefit of weight loss. BMI 31.96 kg/(m2) - Follow up for routine visit - LIPID PANEL BASIC 4. Elevated blood sugar - ICD9: 790.29, ICD10: R73.9 - HEMOGLOBIN A1C 5. Adrenal mass 1 cm to 4 cm in diameter (HCC) - ICD9: 255.8, ICD10: E27.8 - CONSULT TO ENDOCRINOLOGY 6. Hypokalemia - ICD9: 276.8, ICD10: E87.6 - low on discharge - COMPREHENSIVE METABOLIC PANEL 7. Duodenal ulcer - ICD9: 532.90, ICD10: K26.9 - complete PPI and Carafate regime - follow-up if symptoms persist after completion Aissatou Mac, RECORD PRODUCER.REEMA Prescription instructions reviewed with patient as applicable. Patient advised if symptoms do not improve or if symptoms worsen sooner, to contact their primary care physician. Potential red flag symptoms discussed with the patient. Reviewed appropriate action plan to take if red flag symptoms occur. Patient (more content not included)...[facility]09-12-2024 [facility] Medical Records Department [address] [place] [address] Discharge Summary 04/18/24 1337 MR#: [id number] Acct: [id number] Name: VIOLET CHIN Rep #: [id number] : 1965 58 From: Kostas Coffman DO PCP: Dr. Rico Lemus MD Status:DIS IN Location: [place] [address] Providers Date of Admission: 04/16/24 Date of Discharge: 04/18/24 Primary Care Physician: Dr. Rico Lemus MD Consultations 04/16/24 20:39 Consult: Gastroenterology Routine Consulting Provider: [facility] Reason for Consult: Fatty Mass in Duodenum with Fever, RUQ pain and Leukocytosis. EMERGENT Consult: No MD Notified: Yes Date Notified: 04/16/24 Time Notified: 19:42 Method of Notification: ED Physician Initiated Consult: General Surgery Routine Consulting Provider: Stanley Tavarez Reason for Consult: Fatty Mass in Duodenum with RUQ pain, fever and Leukocytosis. EMERGENT Consult: No MD Notified: No Date Notified: 04/16/24 Time Notified: 19:43 Reason For Visit: MASS IN DUODENUM AND ADRENALS W FEVER, LEUKOCYTOSI Diagnosis Discharge Diagnosis (1) Right upper quadrant abdominal pain: Status: Acute Code(s): R10.11 - Right upper quadrant pain Medications at Discharge Home Medications atorvastatin 80 mg tablet 80 mg PO QHS cholesterol 04/16/24 bupropion HCl 150 mg tablet,12 hr sustained-release 150 mg PO BID 04/16/24 lisinopril 10 mg-hydrochlorothiazide 12.5 mg tablet 1 tab PO DAILY 04/16/24 sertraline 100 mg tablet 100 mg PO DAILY 04/16/24 pantoprazole 40 mg tablet,delayed release 40 mg PO BID 90 days #180 tabs 04/18/24 sucralfate 1 gram tablet 1 g PO 1HR_ACHS 14 days #42 tabs 04/18/24 Hospital Course Operations None Procedures EGD, EKG and - (CT abdomen pelvis, CTA chest, gallbladder ultrasound) Summary of Care Provided Minutes Spent on Discharge: 35 Hospital Course: Patient is a 58-year-old female who presented [facility] ED on 04/16/2024 with worsening abdominal pain. Hospital course as noted below. Patient discharged home in stable condition on 04/18. 1. Abdominal pain, improved; nonbleeding duodenal ulcers; duodenal lipoma; concern for biliary colic ??? GI and general surgery followed. Presented with fairly acute onset abdominal pain with pain worst in the right upper quadrant. CT abdomen pelvis on admit showed intramural mass within the descending portion of the duodenum, no other significant findings. Gallbladder ultrasound showed multiple small hepatic cysts, no evidence of gallstones or acute cholecystitis. CTA chest was unremarkable. EGD on 04/17 showed a nonobstructing duodenal lipoma as well as nonbleeding duodenal ulcers with no stigmata of bleeding. Per GI and general surgery, suspect ulcers may have been contributing to pain versus possible biliary colic; low concern that duodenal lipoma was causing her symptoms. No surgical intervention required during hospitalization. Patient with significant improvement in pain after EGD and was tolerating a regular diet without issue on day of discharge. Recommended p.o. PPI twice daily for 12 weeks and sucralfate with meals for 2 weeks on discharge. 2. Incidental bilateral adrenal masses ??? CT abdomen pelvis on admit showed bilateral adrenal masses markedly larger on right side with recommendation for correlation with nonemergent MRI with contrast or CT scan with adrenal protocol. Was discussed informally with Dr. Quiros with hematology/oncology who noted that this was an incidental finding and not contributing to her pain on admission. He recommended either follow-up with hematology/oncology versus follow-up with endocrinology after discharge. Patient is a [facility] patient and can discuss with her PCP on outpatient follow-up about referrals to the specialist for further workup. 3. Mild leukocytosis, improving ??? Initially high concern for infection given leukocytosis and abdominal pain on admission. However, acute cholecystitis ruled out and no other nidus for infection identified. Patient was afebrile and noninfectious appearing during hospitalization. No need for antibiotics at discharge. Chronic medical conditions: ??? Obesity: BMI 30 on admit. Complicated hospital course, care and prognosis. ??? Tobacco abuse: Encouraged cessation on discharge. ??? Hypertension: Continue home lisinopril???hydrochlorothiazide. ??? Depression: Stable. Continue home sertraline. ??? Hyperlipidemia: Continue home statin. Total clinical time spent by myself addressing the patient's medical issues, reviewing all the data, and collaborating with patient's care team: 35 minutes. Physical Exam Const alert, oriented x3 and no apparent distress Constitutional Narrative: Pleasant middle-age female, obese, sitting up actively bed, conversing normally, in no acute distress. General Appearance: (more content not included)...[facility] 01-17-2024 History of Present illness Narrative* Drew Galvan MD - 01/17/2024 5:43 PM EDT Patient presents with: Suture Removal: Suture removal left knee x 5 placed in ER [facility] HPI: Patient presents for suture removal. She cut her left knee on a broken shower soap dish and had sutures placed at [facility] ER 01/06/2024. Denies bleeding, drainage, dehiscence, erythema, or signs of infection. MEDICATIONS: buPROPion SR (WELLBUTRIN SR) 150 mg 12 hr tablet Take 1 tablet by mouth two times a day. sertraline (ZOLOFT) 100 mg tablet Take 1 tablet by mouth once daily. atorvastatin (LIPITOR) 80 mg tablet Take 1 tablet by mouth daily at bedtime. For cholesterol. lisinopril-hydroCHLOROthiazide (ZESTORETIC) 10-12.5 mg per tablet Take 1 tablet by mouth once daily. biotin 5,000 mcg subl Dissolve under the tongue. ALLERGIES: ALLERGIES Allergen Reactions Prozac [Fluoxetine] GI Upset VITALS: BP 112/78 Pulse 65 Temp 36.9 C (98.4 F) (Tympanic) Resp 18 Wt 80.9 kg (178 lb 5.6 oz) SpO2 96% BMI 31.85 kg/m PE: Pleasant, in no acute distress. KNEE: left. 1.5cm longitudinal laceration superior to the patella with central eschar and surrounding red hyperpigmentation. 5 interrupted sutures removed. The superficial skin edges are gaping with approximated base. ASSESSMENT/PLAN: 1. Laceration of left knee, subsequent encounter - ICD9: V58.89, 891.0, ICD10: S81.012D Follow up with signs of infection such as increasing redness, pain, swelling, purulent drainage, orfever/malaise. Drew Galvan MD documented [facility] encounter[facility] Telephone encounter Note * Telephone Encounter - Chase Choi MA - 01/11/2024 1:45 PM EDT Left message to call office. 01/11/2024 1:45 PM [facility]06-[facility] Miscellaneous Notes* Telephone Encounter - Chase Choi MA - 01/11/2024 1:45 PM EDT Left message to call office. 01/11/2024 1:45 PM * Telephone Encounter - Cara Sanders LPN - 01/08/2024 4:47 PM EDT Phoned patient to schedule ER f/u for 01/16/24 for suture removal. Message left for patient to return call to schedule appointment. documented in this encounterBet[facility]06-03-[facility]24 Telephone encounter Note * Telephone Encounter - Cara Sanders LPN - 01/08/2024 4:47 PM EDT Phoned patient to schedule ER f/u for 01/16/24 for suture removal. Message left for patient to return call to schedule appointment. [facility]04-09[facility] History of Present illness Narrative* Erick Lemus MD - 11/14/2023 6:42 PM EDT Chief Complaint Patient presents with: Follow Up Refill Request HPI Violet Chin is a 58 year old female who presents here today for Above Complaints. HTN: Ms. Chin indicates that she is feeling well and denies any symptoms referable to elevated blood pressure. Specifically denies headache, chest pain, palpitations, dyspnea, and peripheral edema. Patient denies any side effects of her medication(s) and is compliant with their regimen. She doesnot check BP's generally. Violet likes to exercise by working physical job. She watches her diet forsodium, low fat and low cholesterol most of the time. Last 3 Encounter BP Readings: Date: BP: 11/14/2023 118/74 04/13/2023 118/78 02/18/2022 116/76 Anxiety/depression: Patient ran out of her Zoloft about 2 weeks ago, but is still taking the Wellbutrin. States that symptoms were improved while she was taking both and would like refill today. Not seeing counseling at this time. Denies panic symptoms, SI/HI. Lab work ordered in April which was not completed due to cost. Insurance will kick in in January 05. Smoking 12 cigarettes per day. Not ready to quit today. Past medical history, appointments, medications, allergies reviewed. Previous Medical History PAST MEDICAL HISTORY Diagnosis Date Anxiety and depression History of COVID-19 08/2020 HTN (hypertension) Lumbar herniated disc s/p laminectomy-pain free Marijuana use Mixed hyperlipidemia Obesity (BMI 30-39.9) Tobacco use Previous Surgical History PAST SURGICAL HISTORY Procedure Laterality Date SNGL 1986 SNGL 1987 SNGL 2000 EYE SURGERY HX 1972 correct lazy eye LAMINECTOMY W/O FFD 1/2 VERT SEG LUMBAR 2007 TUBAL LIGATION 2000 Family History FAMILY HISTORY Problem Relation Age of Onset COPD Mother No Known Problems Father No Known Problems Sister No Known Problems Brother Cancer Maternal Grandmother No Known Problems Brother No Known Problems Sister No Known Problems Son No Known Problems Daughter No Known Problems Daughter Patient Allergies ALLERGIES Allergen Reactions Prozac [Fluoxetine] GI Upset Current Medications Current Outpatient Medications on File Prior to Visit Medication Sig lisinopril-hydroCHLOROthiazide (ZESTORETIC) 10-12.5 mg per tablet Take 1 tablet by mouth once daily. biotin 5,000 mcg subl Dissolve under the tongue. atorvastatin (LIPITOR) 80 mg tablet Take 1 tablet by mouth daily at bedtime. For cholesterol. buPROPion SR (WELLBUTRIN SR) 150 mg 12 hr tablet Take 1 tablet by mouth two times a day. sertraline (ZOLOFT) 100 mg tablet Take 1 tablet by mouth once daily. No current facility-administered medications on file prior to visit. Social History Social History Tobacco Use Smoking status: Every Day Packs/day: 1.00 Years: 30.00 Additional pack years: 0.00 Total pack years: 30.00 Types: Cigarettes Smokeless tobacco: Never Substance Use Topics Alcohol use: No Drug use: Not Currently Types: Marijuana Comment: occasionally- 2 times a year Review of Symptoms REVIEW OF SYSTEMS GENERAL: No weight loss, malaise or fevers RESPIRATORY: Negative for cough, hemoptysis, wheezing, COPD, dyspnea or shortness of breath CARDIOVASCULAR: Negative for chest pain, leg swelling, hypertension, CHF or palpitations GI: No nausea, vomiting, or diarrhea SKIN: Negative for lesions, rash, and itching EXAM: BP 118/74 Pulse 73 Resp 16 Wt 84.7 kg (186 lb 12.8 oz) SpO2 96% BMI 33.35 kg/m General Appearance: Well appearing, alert, in no acute distress, well-hydrated, well nourished.. Skin: Skin color, texture, turgor normal, no suspicious rashes or lesions. Lungs: Lungs clear to auscultation. No wheezing, rhonchi, rales.. Heart: RRR without murmur, gallop, or rubs. No ectopy. Abdomen: Normal abdominal exam, Abdomen soft, non-tender. Bowel sounds normal. No masses, organomegaly. Extremities: No deformities, edema, skin discoloration, clubbing or cyanosis. Good capillary refill. . Health Maintenance List Mammogram Screening Never done Colorectal Cancer Screening Never done Lung Cancer Screening Never done Hepatitis B Vaccine(1 of 3 - 19+ 3-dose series) due on 04/13/2024 Pap Testing due on 04/13/2024 HPV Testing due on 04/13/2024 Hepatitis C Screening due on 04/13/2024 HIV Screening due on 04/13/2024 Shingrix Vaccine(1 of 2) due on 04/13/2024 Covid-19 Vaccine(3 - season) due on 04/13/2024 Pneumococcal Vaccine(2 of 2 - PCV) due on 04/13/2024 Diabetes Screening due on 02/05/2024 Influenza Vaccine(Season Ended) due on 04/07/2024 Annual PCP Team Chronic Disease Visit due on 04/13/2024 BP Controlled (<130/80) due on 04/13/2024 Lipid Screening due on 02/04/2026 DTaP,Tdap,Td Vaccine(2 - Td or Tdap) due on 03/15/2029 Data reviewed Latest Ref Rng 02/04/2021 Protein, Total 6.3 - 8.0 g/dL 7.2 Albumin 3.9 - 4.9 g/dL 4.2 Calcium 8.5 - 10.2 mg/dL 9.7 Bilirubin, Total 0.2 - 1.3 mg/dL 0.3 Alkaline Phosphatase 34 - 123 U/L 106 AST 13 - 35 U/L 21 Glucose 74 - 99 mg/dL 111 (H) BUN 7 - 21 mg/dL 14 Creatinine 0.58 - 0.96 mg/dL 0.60 Sodium 136 - 144 mmol/L 131 (L) Potassium 3.7 - 5.1 mmol/L 4.3 Chloride 97 - 105 mmol/L 98 CO2 22 - 30 mmol/L 22 Anion Gap 9 - 18 mmol/L 11 ALT 7 - 38 U/L 14 eGFR- >60 eGFR-All Other Races . >60 Total Cholesterol, Nonfasting <200 mg/dL 281 (H) Triglycerides, Nonfasting <150 mg/dL 211 (H) HDL Cholesterol, Nonfasting >39 mg/dL 40 LDL Cholesterol, Nonfasting <100 mg/dL 199 (H) Non HDL Cholesterol, Nonfasting <130 mg/dL 241 (H) VLDL Cholesterol, Nonfasting <30 mg/dL 42 (H) Total Chol/HDL Ratio, Nonfasting <5.10 mg/dL 7.03 (H) LDL/HDL Ratio, Nonfasting <2.54 mg/dL 4.98 (H) ASSESSMENT/PLAN: 1. Anxiety with depression - ICD9: 300.4, ICD10: F41.8 (primary diagnosis) Controlled on zoloft and wellbutrin. Refill medications today. F/u in 6 months. - BUPROPION HCL SR 150 MG TABLET,12 HR SUSTAINED-RELEASE - SERTRALINE 100 MG TABLET 2. Essential hypertension - ICD9: 401.9, ICD10: I10 - Controlled - Continue current medications - Recommend home blood pressure monitoring, to bring results to next visit - Encouraged sodium restriction, DASH or Mediterranean diet - Recommend regular aerobic exercise - LISINOPRIL 10 MG-HYDROCHLOROTHIAZIDE 12.5 MG TABLET - COMPREHENSIVE METABOLIC PANEL 3. Mixed hyperlipidemia - ICD9: 272.2, ICD10: E78.2 - Control undetermined, due for labs - Continue current medications - Counseled on healthy diet and regular exercise 4. Obesity (BMI 30-39.9) - ICD9: 278.00, ICD10: E66.9 Stable - Behavioral intervention 5. Tobacco use - ICD9: 305.1, ICD10: Z72.0 - Cessation encouraged. - Physiologic and physical aspects of tobacco addiction as well as strategies for quitting were discussed. - Counseling was given focusing on the harmful effects of this addiction especially given the patient's medical condition(s) which will be worsened because of the chemicals in tobacco. Erick Lemus MD documented in this encounterBet[facility]02-12-2024 Miscellaneous Notes* Telephone Encounter - Aissatou Mac APRN.CNP - 09/18/2023 9:53 AM EST Patient is due for follow-up. Please assist in scheduling. Aissatou Mac APRN.CNP * Telephone Encounter - Mile De La Torre Ma - 09/18/2023 9:48 AM EST Patient has been identified by name and date of : Yes, Provider Erick Lemus MD DateFebruary 2023 Time now Patient phones for refill(s): Requested Prescriptions Pending Prescriptions Disp Refills lisinopril-hydroCHLOROthiazide (ZESTORETIC) 10-12.5 mg per tablet 90 tablet 0 Sig: Take 1 tablet by mouth once daily. Date of last office visit in primary care: 04/13/2023 Date of next office visit in primary care: none Please advise. Thank you. Mile De La Torre Ma. documented in this encounterBet[facility]12-11-2023 Miscellaneous Notes* Telephone Encounter - Martine Cantu MA - 07/17/2023 10:58 AM EST Patient has been identified by name and date of : Yes Requested Prescriptions Pending Prescriptions Disp Refills atorvastatin (LIPITOR) 80 mg tablet 90 tablet 0 Sig: Take 1 tablet by mouth daily at bedtime. For cholesterol. buPROPion SR (WELLBUTRIN SR) 150 mg 12 hr tablet 180 tablet 0 Sig: Take 1 tablet by mouth two times a day. RX INSTRUCTIONS: Patient aware RX will be sent to pharmacy. No need to notify patient. Patient last office visit: 04/13/23 Patient next office visit: none scheduled Martine Cantu MA documented in this encounterBethesda [facility]11-13-2023 Miscellaneous Notes* Telephone Encounter - Martine Cantu MA - 06/19/2023 11:34 AM EST Patient has been identified by name and date of : Yes Requested Prescriptions Pending Prescriptions Disp Refills lisinopril-hydroCHLOROthiazide (ZESTORETIC) 10-12.5 mg per tablet 90 tablet 0 Sig: Take 1 tablet by mouth once daily. RX INSTRUCTIONS: Patient aware RX will be sent to pharmacy. No need to notify patient. Patient last office visit: 04/13/23 Patient next office visit: none scheduled Martine Cantu MA documented in this encounterBethesda [facility]09-07-2023 History of Present illness Narrative* Erick Lemus MD - 04/13/2023 1:19 PM EDT Chief Complaint Patient presents with: Physical HPI Violet Chin is a 57 year old female who presents here today for Above Complaints. Has been in good health without hospitalizations or ER visits. Patient taking Zoloft and Wellbutrin SR for anxiety and depression. Symptoms poorly controlled on current regimen. Changed jobs recently and is under more stress. Not seeing counseling and would consider referral to counseling next month when she gets back on insurance. Admits to increased agitation/anger, feeling down/depressed, feeling more anxious. Denies SI/HI, panic symptoms. BP well controlled on Zestoretic. Taking statin as prescribed without side effects. Does miss rx about once per week. Due for repeat labs. Complaining of bruising on ASA. Discussed cessation. Last pap smear was more than 5 years ago. No history of abnormal pap. 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 Agreeable to referral for colonoscopy. Screening mammogram ordered in February and is still pending. Smoking 1 pack per day for at least 30 years. Not ready to quit smoking at this time. Discussed lung cancer screening. Past medical history, appointments, medications, allergies reviewed. Previous Medical History PAST MEDICAL HISTORY Diagnosis Date Anxiety and depression History of COVID-19 08/2020 HTN (hypertension) Lumbar herniated disc s/p laminectomy-pain free Marijuana use Mixed hyperlipidemia Obesity (BMI 30-39.9) Tobacco use Previous Surgical History PAST SURGICAL HISTORY Procedure Laterality Date SNGL 1986 SNGL 1987 SNGL 2000 EYE SURGERY HX 1972 correct lazy eye LAMINECTOMY W/O FFD 08/08 VERT SEG LUMBAR 2007 TUBAL LIGATION 2000 Family History FAMILY HISTORY Problem Relation Age of Onset COPD Mother No Known Problems Father No Known Problems Sister No Known Problems Brother Cancer Maternal Grandmother No Known Problems Brother No Known Problems Sister No Known Problems Son No Known Problems Daughter No Known Problems Daughter Patient Allergies ALLERGIES Allergen Reactions Prozac [Fluoxetine] GI Upset Current Medications Current Outpatient Medications on File Prior to Visit Medication Sig atorvastatin (LIPITOR) 80 mg tablet Take 1 tablet by mouth daily at bedtime. For cholesterol. lisinopril-hydroCHLOROthiazide (ZESTORETIC) 10-12.5 mg per tablet Take 1 tablet by mouth once daily. buPROPion SR (WELLBUTRIN SR) 150 mg 12 hr tablet Take 1 tablet by mouth twice daily. sertraline (ZOLOFT) 50 mg tablet Take 1 tablet by mouth once daily. aspirin, enteric coated (ASPIRIN, ENTERIC COATED) 81 mg EC tablet Take 1 tablet by mouth once daily. biotin 5,000 mcg subl Dissolve under the tongue. Gatorade Sports Drink Use as directed for Miralax / Gatorade Bowel Prep Kit Bisacodyl (DULCOLAX) 5 mg tab Use as directed for Miralax / Gatorade Bowel Prep Kit Gatorade Sports Drink Use as directed for Miralax / Gatorade Bowel Prep Kit Bisacodyl (DULCOLAX) 5 mg tab Use as directed for Miralax / Gatorade Bowel Prep Kit No current facility-administered medications on file prior to visit. Social History Social History Tobacco Use Smoking status: Every Day Packs/day: 1.00 Years: 30.00 Additional pack years: 0.00 Total pack years: 30.00 Types: Cigarettes Smokeless tobacco: Never Substance Use Topics Alcohol use: No Drug use: Yes Types: Marijuana Comment: occasionally- 2 times a year Review of Symptoms REVIEW OF SYSTEMS GENERAL: No weight loss, malaise or fevers HEENT: Negative for frequent or significant headaches, No changes in hearing or vision, no nose bleeds or other nasal problems NECK: Negative for lumps, goiter, pain and significant neck swelling RESPIRATORY: Negative for cough, hemoptysis, wheezing, COPD, dyspnea or shortness of breath CARDIOVASCULAR: Negative for chest pain, leg swelling, hypertension, CHF or palpitations GI: No nausea, vomiting, or diarrhea : No history of dysuria, frequency or incontinence MAKEUP ARTISTRY INSTRUCTOR: Negative for abnormal vaginal bleeding, abnormal vaginal discharge MUSCULOSKELETAL: Negative for joint pain or swelling, back pain or muscle pain SKIN: Negative for lesions, rash, and itching PSYCH: See HPI HEMATOLOGY/LYMPHOLOGY: See HPI ENDOCRINE: Negative for cold or heat intolerance, polyuria, polydipsia and goiter NEURO: No history of headaches, syncope, paralysis, seizures or tremors EXAM: BP 118/78 Pulse 73 Resp 16 Wt 93.7 kg (206 lb 9.6 oz) SpO2 96% BMI 36.89 kg/m General Appearance: Well appearing, alert, in no acute distress, well-hydrated, well nourished.. Skin: small areas of scattered bruising on arms bilaterally. Head: Normocephalic, no masses, lesions, tenderness or abnormalities. Eyes: Anicteric sclera. Pupils are equally round and reactive to light. Extraocular movements are intact. . Ears: External ears normal, canals clear. Oropharynx: Lips, mucosa, and tongue normal, teeth and gums normal, oropharynx normal. Neck: Supple, no adenopathy; thyroid symmetric, normal size, no bruits. Lungs: Lungs clear to auscultation. No wheezing, rhonchi, rales.. Heart: RRR without murmur, gallop, or rubs. No ectopy. Abdomen: Normal abdominal exam, Abdomen soft, non-tender. Bowel sounds normal. No masses, organomegaly. Extremities: No deformities, edema, skin discoloration, clubbing or cyanosis. Good capillary refill. . Peripheral Pulses: Normal. Neurologic: Negative findings: cranial nerves 2-12 grossly intact. Lymph Nodes: No cervical lymphadenopathy and No supraclavicular lymphadenopathy. Health Maintenance List HEPATITIS B(1 of 3 - 3-dose series) Never done HEPATITIS C SCREENING Never done HIV SCREENING Never done PAP TESTING Never done HPV TESTING Never done MAMMOGRAM Never done COLORECTAL CANCER SCREENING Never done LUNG CANCER SCREENING Never done SHINGRIX VACCINE(1 of 2) Never done PNEUMOCOCCAL(2 - PCV) due on 03/15/2020 COVID-19 VACCINE(3 - Pfizer series) due on 06/09/2021 ANNUAL PCP TEAM CHRONIC DISEASE VISIT due on 02/18/2023 BP CONTROLLED (<130/80) due on 02/18/2023 INFLUENZA(1) due on 04/07/2023 DIABETES SCREEN due on 02/05/2024 LIPID SCREEN due on 02/04/2026 DTAP,TDAP,TD(2 - Td or Tdap) due on 03/15/2029 Data reviewed Component Latest Ref Rng & Units 02/04/2021 Protein, Total 6.3 - 8.0 g/dL 7.2 Albumin 3.9 - 4.9 g/dL 4.2 Calcium 8.5 - 10.2 mg/dL 9.7 Bilirubin, Total 0.2 - 1.3 mg/dL 0.3 Alkaline Phosphatase 34 - 123 U/L 106 AST 13 - 35 U/L 21 Glucose 74 - 99 mg/dL 111 (H) BUN 7 - 21 mg/dL 14 Creatinine 0.58 - 0.96 mg/dL 0.60 Sodium 136 - 144 mmol/L 131 (L) Potassium 3.7 - 5.1 mmol/L 4.3 Chloride 97 - 105 mmol/L 98 CO2 22 - 30 mmol/L 22 Anion Gap 9 - 18 mmol/L 11 ALT 7 - 38 U/L 14 eGFR- >60 eGFR-All Other Races . >60 Total Cholesterol, Nonfasting <200 mg/dL 281 (H) Triglycerides, Nonfasting <150 mg/dL 211 (H) HDL Cholesterol, Nonfasting >39 mg/dL 40 LDL Cholesterol, Nonfasting <100 mg/dL 199 (H) Non HDL Cholesterol, Nonfasting <130 mg/dL 241 (H) VLDL Cholesterol, Nonfasting <30 mg/dL 42 (H) Total Chol/HDL Ratio, Nonfasting <5.10 mg/dL 7.03 (H) LDL/HDL Ratio, Nonfasting <2.54 mg/dL 4.98 (H) ASSESSMENT/PLAN: 1. Annual physical exam - ICD9: V70.0, ICD10: Z00.00 (primary diagnosis) - Counseled on healthy diet and regular exercise - Calcium intake with supplements or by diet of 1000 mg/day for under 50, 1200- 1500 mg/day for 50+ - Colorectal cancer screening recommended - agrees to Colonoscopy - Mammogram ordered - exam recommended once yearly - Lung cancer screening recommended - Smoking cessation encouraged; discussed risks to health and quitting strategies. Patient is not ready to quit - Follow up for annual exam in one year - CBC + DIFF - COMP METABOLIC PANEL - LIPID PANEL, NONFASTING - HGB A1C - TSH BLD - VITAMIN D 25 HYDROXY 2. Anxiety with depression - ICD9: 300.4, ICD10: F41.8 Uncontrolled on current regimen. Increase zoloft and recheck in 4-6 weeks. - SERTRALINE 100 MG TABLET - VITAMIN D 25 HYDROXY 3. Essential hypertension - ICD9: 401.9, ICD10: I10 - Controlled - Continue current medications - Recommend home blood pressure monitoring, to bring results to next visit - Encouraged sodium restriction, DASH or Mediterranean diet - Recommend regular aerobic exercise 4. Mixed hyperlipidemia - ICD9: 272.2, ICD10: E78.2 - Control undetermined, due for labs - Continue current medications - Counseled on healthy diet and regular exercise 5. Obesity (BMI 30-39.9) - ICD9: 278.00, ICD10: E66.9 Weight decreasing - Behavioral intervention 6. Tobacco use - ICD9: 305.1, ICD10: Z72.0 - Cessation encouraged. - Physiologic and physical aspects of tobacco addiction as well as strategies for quitting were discussed. - Counseling was given focusing on the harmful effects of this addiction especially given the patient's medical condition(s) which will be worsened because of the chemicals in tobacco. Referred for lung cancer screening. - CONSULT LUNG CANCER SCREENING CLINIC 7. Screening for colon cancer - ICD9: V76.51, ICD10: Z12.11 - CONSULT TO GENERAL SURGERY 8. Screening for cervical cancer - ICD9: V76.2, ICD10: Z12.4 - CONSULT TO GYNECOLOGY 9. Bruising - ICD9: 924.9, ICD10: T14.8XXA Suspect 2/2 ASA. Check CBC with diff and stop ASA. Will f/u in 4-6 weeks to see if symptoms resolved. Erick eLmus MD [facility] Miscellaneous Notes* Telephone Encounter - Balwinder Langford - 03/16/2022 11:00 AM EDT 3rd failed attempt to schedule colonoscopy. Left VM, sent letter, and [employer] message. New order will need placed when patient calls in or requests to schedule. Thank you. YAA 03/15 [facility]* Diagnosis Encounter for screening mammogram for breast cancer [facility] Diagnosis Encounter for screening mammogram for breast cancer [facility]* Diagnosis Annual physical exam- Primary Routine general medical examination at a health care facility Anxiety with depression Essential hypertension Unspecified essential hypertension Mixed hyperlipidemia Obesity (BMI 30-39.9) Obesity, unspecified Tobacco use Tobacco use disorder Screening for colon cancer Special screening for malignant neoplasms, colon Screening for cervical cancer Screening for malignant neoplasm of the cervix Bruising Contusion of unspecified site [facility] Diagnosis Essential hypertension Unspecified essential hypertension [facility] Diagnosis Essential hypertension Unspecified essential hypertension [facility] Diagnosis Anxiety with depression [facility] Diagnosis Essential hypertension Unspecified essential hypertension [facility]* Diagnosis Screening for colon cancer- Primary Special screening for malignant neoplasms, colon [facility]* Diagnosis Anxiety with depression [facility] Diagnosis Anxiety with depression- Primary Essential hypertension Unspecified essential hypertension Mixed hyperlipidemia Obesity (BMI 30-39.9) Obesity, unspecified Tobacco use Tobacco use disorder [facility]* Diagnosis Laceration of left knee, subsequent encounter- Primary [facility]* Diagnosis Hospital discharge follow-up- Primary Other follow-up examination Mass of both adrenal glands (HCC) Mixed hyperlipidemia Elevated blood sugar Other abnormal glucose Adrenal mass 1 cm to 4 cm in diameter (HCC) Hypokalemia Hypopotassemia [facility]* Diagnosis 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 Hospital discharge follow-up Other follow-up examination Adrenal mass 1 cm to 4 cm in diameter (HCC) Disorder of adrenal gland (HCC) Unspecified disorder of adrenal glands [facility]* Diagnosis Essential hypertension Unspecified essential hypertension Anxiety with depression [facility]* Diagnosis Abnormal mammogram- Primary Abnormal mammogram, unspecified [facility]* Diagnosis Encounter for screening mammogram for breast cancer [facility]* Diagnosis Essential hypertension- Primary Unspecified essential hypertension Mixed hyperlipidemia Hyperglycemia Other abnormal glucose [facility]* Diagnosis Disorder of adrenal gland (HCC) Unspecified disorder of adrenal glands [facility]* Diagnosis Adrenal nodule (HCC)- Primary Unspecified disorder of adrenal glands [facility]* Diagnosis Adrenal nodule (HCC)- Primary Unspecified disorder of adrenal glands Obesity, Class I, BMI 30-34.9 Obesity, unspecified [facility]* Diagnosis Adrenal mass (HCC)- Primary Unspecified disorder of adrenal glands Disorder of adrenal gland (HCC) Unspecified disorder of adrenal glands [facility]* Diagnosis Pre-operative examination- Primary Preoperative examination, unspecified Adrenal mass (HCC) Unspecified disorder of adrenal glands Essential hypertension Unspecified essential hypertension Mixed hyperlipidemia Smoker Tobacco use disorder Anxiety with depression Marijuana use Cannabis abuse, unspecified Obesity, Class I, BMI 30-34.9 Obesity, unspecified Prediabetes Other abnormal glucose Liver cyst Other specified disorders of liver Polypoid adenoma Benign neoplasm of unspecified site Adrenal mass (HCC) Unspecified disorder of adrenal glands Pre-operative examination Preoperative examination, unspecified Adrenal mass (HCC) Unspecified disorder of adrenal glands [facility] Diagnosis Pre-operative examination- Primary Preoperative examination, unspecified Adrenal mass (HCC) Unspecified disorder of adrenal glands Essential hypertension Unspecified essential hypertension Mixed hyperlipidemia Smoker Tobacco use disorder Anxiety with depression Marijuana use Cannabis abuse, unspecified Obesity, Class I, BMI 30-34.9 Obesity, unspecified Prediabetes Other abnormal glucose Liver cyst Other specified disorders of liver Polypoid adenoma Benign neoplasm of unspecified site Adrenal mass (HCC) Unspecified disorder of adrenal glands Pre-operative examination Preoperative examination, unspecified Adrenal mass (HCC) Unspecified disorder of adrenal glands * Assessment & Plan Note - Gurvinder Garcia APRN.CNP - 11/08/2024 3:12 PM EDT Associated Problem(s): Polypoid adenoma Assessment: per CT 04/2024 with GI consult recommended * Assessment & Plan Note - Gurvinder Garcia APRN.CNP - 11/08/2024 3:07 PM EDT Associated Problem(s): Liver cyst Assessment: multiple seen on CT 04/2024 * Assessment & Plan Note - Gurvinder Garcia APRN.CNP - 11/08/2024 3:06 PM EDT Associated Problem(s): Prediabetes Assessment: diet controlled, Hemoglobin A1C (%) Date Value 10/14/2024 6.0 * Assessment & Plan Note - Gurvinder Garcia APRN.CNP - 11/08/2024 3:05 PM EDT Associated Problem(s): Obesity, Class I, BMI 30-34.9 Assessment: Body mass index is 32.61 kg/m . * Assessment & Plan Note - Gurvinder Garcia APRN.CNP - 11/08/2024 3:04 PM EDT Associated Problem(s): Marijuana use Assessment: flower, 1-2x/week, reviewed to withhold prior to surgery, pt verbalized understanding. * Assessment & Plan Note - Gurvinder Garcia APRN.CNP - 11/08/2024 3:04 PM EDT Associated Problem(s): Anxiety with depression Assessment: stable on rx per pt * Assessment & Plan Note - Gurvinder Garcia APRN.CNP - 11/08/2024 3:04 PM EDT Associated Problem(s): Smoker Assessment: 1ppd/30+ years, down to 0.5ppd, denies dx COPD/asthma, does admit to daily productive cough, worse the past several days stating she feels like she has an URI, /occasional wheezing, PFT/CXR ordered * Assessment & Plan Note - Gurvinder Garcia APRN.CNP - 11/08/2024 3:02 PM EDT Associated Problem(s): Mixed hyperlipidemia Assessment: c/w statin * Assessment & Plan Note - Gurvinder Garcia APRN.CNP - 11/08/2024 3:01 PM EDT Associated Problem(s): Essential hypertension Assessment: controlled on rx Last 14 BP Last 14 Encounter BP Readings: Date: BP: 11/08/2024 140/84 11/05/2024 165/88 06/28/2024 158/92 05/15/2024 138/80 01/17/2024 112/78 11/14/2023 118/74 04/13/2023 118/78 02/18/2022 116/76 02/04/2021 138/88 10/16/2019 122/78 04/15/2019 148/88 03/15/2019 122/76 09/28/2018 131/84 07/02/2018 116/80 [facility]* Diagnosis Pre-operative examination- Primary Preoperative examination, unspecified Adrenal mass (HCC) Unspecified disorder of adrenal glands Essential hypertension Unspecified essential hypertension Mixed hyperlipidemia Smoker Tobacco use disorder Anxiety with depression Marijuana use Cannabis abuse, unspecified Obesity, Class I, BMI 30-34.9 Obesity, unspecified Prediabetes Other abnormal glucose Liver cyst Other specified disorders of liver Polypoid adenoma Benign neoplasm of unspecified site Pre-operative examination- Primary Preoperative examination, unspecified Adrenal mass (HCC) Unspecified disorder of adrenal glands [facility]* Diagnosis Pre-operative examination- Primary Preoperative examination, unspecified Adrenal mass (HCC) Unspecified disorder of adrenal glands Essential hypertension Unspecified essential hypertension Mixed hyperlipidemia Smoker Tobacco use disorder Anxiety with depression Marijuana use Cannabis abuse, unspecified Obesity, Class I, BMI 30-34.9 Obesity, unspecified Prediabetes Other abnormal glucose Liver cyst Other specified disorders of liver Polypoid adenoma Benign neoplasm of unspecified site Disorder of adrenal gland (HCC) Unspecified disorder of adrenal glands Adrenal mass (HCC) Unspecified disorder of adrenal glands [facility]* Diagnosis Pre-operative examination- Primary Preoperative examination, unspecified Adrenal mass (HCC) Unspecified disorder of adrenal glands Essential hypertension Unspecified essential hypertension Mixed hyperlipidemia Smoker Tobacco use disorder Anxiety with depression Marijuana use Cannabis abuse, unspecified Obesity, Class I, BMI 30-34.9 Obesity, unspecified Prediabetes Other abnormal glucose Liver cyst Other specified disorders of liver Polypoid adenoma Benign neoplasm of unspecified site Pheochromocytoma of right adrenal gland- Primary [facility]* Diagnosis Pre-operative examination- Primary Preoperative examination, unspecified Adrenal mass (HCC) Unspecified disorder of adrenal glands Essential hypertension Unspecified essential hypertension Mixed hyperlipidemia Smoker Tobacco use disorder Anxiety with depression Marijuana use Cannabis abuse, unspecified Obesity, Class I, BMI 30-34.9 Obesity, unspecified Prediabetes Other abnormal glucose Liver cyst Other specified disorders of liver Polypoid adenoma Benign neoplasm of unspecified site Abnormal mammogram- Primary Abnormal mammogram, unspecified [facility]* Diagnosis Pre-operative examination- Primary Preoperative examination, unspecified Adrenal mass (HCC) Unspecified disorder of adrenal glands Essential hypertension Unspecified essential hypertension Mixed hyperlipidemia Smoker Tobacco use disorder Anxiety with depression Marijuana use Cannabis abuse, unspecified Obesity, Class I, BMI 30-34.9 Obesity, unspecified Prediabetes Other abnormal glucose Liver cyst Other specified disorders of liver Polypoid adenoma Benign neoplasm of unspecified site Abnormal mammogram Abnormal mammogram, unspecified [facility]* Diagnosis Pre-operative examination- Primary Preoperative examination, unspecified Adrenal mass (HCC) Unspecified disorder of adrenal glands Essential hypertension Unspecified essential hypertension Mixed hyperlipidemia Smoker Tobacco use disorder Anxiety with depression Marijuana use Cannabis abuse, unspecified Obesity, Class I, BMI 30-34.9 Obesity, unspecified Prediabetes Other abnormal glucose Liver cyst Other specified disorders of liver Polypoid adenoma Benign neoplasm of unspecified site Abnormal mammogram Abnormal mammogram, unspecified [facility]* Diagnosis Pre-operative examination- Primary Preoperative examination, unspecified Adrenal mass (HCC) Unspecified disorder of adrenal glands Essential hypertension Unspecified essential hypertension Mixed hyperlipidemia Smoker Tobacco use disorder Anxiety with depression Marijuana use Cannabis abuse, unspecified Obesity, Class I, BMI 30-34.9 Obesity, unspecified Prediabetes Other abnormal glucose Liver cyst Other specified disorders of liver Polypoid adenoma Benign neoplasm of unspecified site Pheochromocytoma of right adrenal gland- Primary documented in [facility]* Diagnosis Pre-operative examination- Primary Preoperative examination, unspecified Adrenal mass (HCC) Unspecified disorder of adrenal glands Essential hypertension Unspecified essential hypertension Mixed hyperlipidemia Smoker Tobacco use disorder Anxiety with depression Marijuana use Cannabis abuse, unspecified Obesity, Class I, BMI 30-34.9 Obesity, unspecified Prediabetes Other abnormal glucose Liver cyst Other specified disorders of liver Polypoid adenoma Benign neoplasm of unspecified site 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 documented [facility]* Diagnosis Onset Date Resolution Status Admit Date Physical exam, pre-employment acute January 27, 2025 3:08pm [email or web address] Work Phone: Evaluation note* Diagnosis Pre-operative examination- Primary Preoperative examination, unspecified Adrenal mass (HCC) Unspecified disorder of adrenal glands Essential hypertension Unspecified essential hypertension Mixed hyperlipidemia Smoker Tobacco use disorder Anxiety with depression Marijuana use Cannabis abuse, unspecified Obesity, Class I, BMI 30-34.9 Obesity, unspecified Prediabetes Other abnormal glucose Liver cyst Other specified disorders of liver Polypoid adenoma Benign neoplasm of unspecified site Adrenal mass (HCC) Unspecified disorder of adrenal glands Disorder of adrenal gland (HCC) Unspecified disorder of adrenal glands Adrenal nodule (HCC) Unspecified disorder of adrenal glands documented in this encounter [facility] for referral (narrative)* Diagnostic Procedure Only (Routine) - Pending Review Specialty Diagnoses / Procedures Referred By Samara castillo Referred To Contact [facility] Diagnoses Encounter for screening mammogram for breast cancer Procedures MAYITO SCREENING SCREENING MAMMOGRAPHY BI 2-VIEW BREAST INC CAD Erick Lemus MD [address] [place] [address] [facility] [address] [place] [id number] Referral ID Status Reason Start Date Expiration Date Visits Requested Visits Authorized [id number] Pending Review Auto-Generat ed Referral 02/09/2022 03/11/2023 [address] [facility] for referral (narrative)* Diagnostic Procedure Only (Routine) - Pending Review Specialty Diagnoses / Procedures Referred By Samara castillo Referred To Contact [facility] Diagnoses Encounter for screening mammogram for breast cancer Procedures MAYITO SCREENING SCREENING MAMMOGRAPHY BI 2-VIEW BREAST INC Erick Hdz MD [address] [place] [address] [facility] [address] [place] [address] Referral ID Status Reason Start Date Expiration Date Visits Requested Visits Authorized [id number] Pending Review Auto-Generat ed Referral 02/08/2023 03/09/2024 [address] [facility] for referral (narrative)* Diagnostic Procedure Only (Routine) - Pending Review Specialty Diagnoses / Procedures Referred By Samara castillo Referred To Contact [facility] Diagnoses Encounter for screening mammogram for breast cancer Procedures MAYITO SCREENING W GERALD SCREENING DIGITAL BREAST TOMOSYNTHESIS BI SCREENING MAMMOGRAPHY BI 2-VIEW BREAST INC Erick Hdz MD [address] [place] [address] [facility] [address] [place] [address] Referral ID Status Reason Start Date Expiration Date Visits Requested Visits Authorized [id number] Pending Review Auto-Generat ed Referral 01/17/2024 02/15/2025 1 1 [facility] for referral (narrative)No reason for referral information [facility]: Reason for visit Narrative* Diagnostic Procedure Only (Routine) - Closed Specialty Diagnoses / Procedures Referred By Samara castillo Referred To Contact [facility] Diagnoses Encounter for screening mammogram for breast cancer Procedures MAYITO SCREENING W GERALD SCREENING DIGITAL BREAST TOMOSYNTHESIS BI SCREENING MAMMOGRAPHY BI 2-VIEW BREAST INC Erick Hdz MD [address] [place] [id number] Phone: tel: fax: [facility] [address] [place] [address] Referral ID Status Reason Start Date Expiration Date V isits Requested Visits Authorized [id number] Closed Auto-Generate d Referral 01/17/2024 02/15/2025 [address] [facility] for visit Narrative* Consult, Test, Treat (Routine) - Closed Specialty Diagnoses / Procedures Referred By Contac t Referred To Contact Diagnoses Adrenal nodule (HCC) Procedures CONSULT TO ENDOCRINE SURGERY OFFICE/OUTPATIENT [facility] 60 MINUTES Bianca Rogel MD [address] [place] [address] Phone: tel: fax: Referral ID Status Reason Start Date Expiration Date V isits Requested Visits Authorized [id number] Closed PCP Requested Referral 10/29/2024 10/29/2025 [address] [facility] for visit Narrative* MRI/CT (Routine) - Closed Specialty Diagnoses / Procedures Referred By Contac t Referred To Contact [facility] Diagnoses Disorder of adrenal gland (HCC) Procedures CT CHEST W IVCON DIAGNOSTIC COMPUTED TOMOGRAPHY THORAX W/CONTRAST John Bradley MD [address] [place] [id number] Phone: tel: fax: [facility] [place] [phone] Referral ID Status Reason Start Date Expiration Date V isits Requested Visits Authorized [id number] Closed Auto-Generate d Referral 11/05/2024 12/05/2025 [address] [facility] for visit Narrative* Diagnostic Procedure Only (Routine) - Closed Specialty Diagnoses / Procedures Referred By Contac t Referred To Contact [facility] Diagnoses Abnormal mammogram Procedures MAYITO DIAGNOSTIC BILATERAL DIAGNOSTIC MAMMOGRAPHY COMPUTER-AIDED DETCJ BI Erick Lemus MD [address] [place] [address] Phone: tel: fax: [facility] [address] [place] [address] Referral ID Status Reason Start Date Expiration Date V isits Requested Visits Authorized [id number] Closed Auto-Generate d Referral 10/11/2024 11/10/2025 [address] [facility] for visit Narrative* Diagnostic Procedure Only (Routine) - Closed Specialty Diagnoses / Procedures [facility] Diagnoses Abnormal mammogram Procedures US BREAST LTD RIGHT US BREAST UNI REAL TIME WITH IMAGE LIMITED Erick Lemus MD [address] [place] [address] Phone: tel: fax: [facility] [address] [place] [address] Referral ID Status Reason Start Date Expiration Date V isits Requested Visits Authorized [id number] Closed Auto-Generate d Referral 10/11/2024 11/10/2025 [address] [facility] for visit Narrative* Diagnostic Procedure Only (Routine) - Closed Specialty Diagnoses / Procedures Referred By Contac t Referred To Contact [facility] Diagnoses Adrenal mass (HCC) Disorder of adrenal gland (HCC) Adrenal nodule (HCC) Procedures NM PET/CT NEUROENDOCRINE WHOLE BODY IMAGING PET IMAGING CT [employer]EN[employer] John Bradley MD [address] [place] [address] Phone: tel: fax: [facility] [address] [place] [id number] Phone: tel: Referral ID Status Reason Start Date Expiration Date V isits Requested Visits Authorized [id number] Closed Auto-Generate d Referral 01/27/2025 08/06/2025 [address] [facility] for visit Narrative* Diagnostic Procedure Only (Routine) - Closed Specialty Diagnoses / Procedures Referred By Contac t Referred To Contact MOLECULAR & FUNCTIONAL IMAGING Diagnoses Adrenal mass (HCC) Disorder of adrenal gland (HCC) Adrenal nodule (HCC) Procedures NM PET/CT NEUROENDOCRINE WHOLE BODY IMAGING PET IMAGING CT ATTENUATION [employer] John Bradley MD [address] [place] [address] Phone: tel: fax: [facility] [address] [place] [address] Phone: tel: Referral ID Status Reason Start Date Expiration Date V isits Requested Visits Authorized [id number] Closed Auto-Generate d Referral 01/27/2025 08/06/2025 2 2 [facility] Reason for Referral Specialty Diagnoses / Procedures Referred By Contac t Referred To Contact General Surgery Diagnoses Screening for colon cancer Procedures CONSULT TO GENERAL SURGERY OFFICE/OUTPATIENT [facility] 60-74 MINUTES Erick Lemus MD [address] [place] [address] Referral ID Status Reason Start Date Expiration Date Visits Requested Visits Authorized [id number] Pending Review PCP Requested Referral 04/13/2023 04/12/2024 1 1 Specialty Diagnoses / Procedures Referred By Contac t Referred To Contact Gynecology Diagnoses Screening for cervical cancer Procedures CONSULT TO GYNECOLOGY OFFICE/OUTPATIENT [facility] 60-74 MINUTES Erick Lemus MD [address] [place] [address] Referral ID Status Reason Start Date Expiration Date Visits Requested Visits Authorized [id number] Pending Review PCP Requested Referral Auto-Generate d Referral 04/13/2023 04/12/2024 1 1 Specialty Diagnoses / Procedures Referred By Contac t Referred To Contact Endocrinology Diagnoses Mass of both adrenal glands (HCC) Hospital discharge follow-up Adrenal mass 1 cm to 4 cm in diameter (HCC) Procedures CONSULT TO ENDOCRINOLOGY OFFICE/OUTPATIENT [facility] 60 MINUTES Aissatou Mac APRN.CNP [address] [place] [address] Referral ID Status Reason Start Date Expiration Date Visits Requested Visits Authorized [id number] Authorized PCP Requested Referral 05/15/2024 05/15/2025 1 1 Specialty Diagnoses / Procedures Referred By Contac t Referred To Contact CT IMAGING Diagnoses Disorder of adrenal gland (HCC) Procedures CT ADRENAL WO/W IVCON CT ABDOMEN W & W/O CONTRAST Nina Lerner MD [address] [place] [id number] [place] [address] Referral ID Status Reason Start Date Expiration Date Visits Requested Visits Authorized [id number] Pending Review Auto-Generat ed Referral 07/28/2025 1 1 Summary Purpose Family History No Family History Records FoundNo Family History Records FoundNo Family History Records FoundNo Family History Records Found Advance Directives No Advanced Directives Records FoundNo Advanced Directives Records FoundNo Advanced Directives Records FoundNo Advanced Directives Records Found Chief Complaint and Reason for Visit Chief Complaint Admit Date PE NON DOT PHYSICAL/ROSA BRUSH January 062024 3:08pm PE NON DOT DRUG SCREEN/ROSA BRUSH Ari e 2024 3:09pm Reason for Visit Admit Date Physical exam, pre-employment January 27, 2025 3:08pm Additional Source Comments Source Comments (unrecognize d section and content) In the event this informatio n is protected by the Federal Confidentiality of Alcohol and Drug Abuse Patient Records regulations: The Federal rules restrict any use of the information to criminally investigate or prosecute any alcohol or drug abuse patient.[facility] the event this information is protected by the Federal Confidentiality of Alcohol and Drug Abuse Patient Records regulations: The Federal rules restrict any use of the information to criminally investigate or prosecute any alcohol or drug abuse patient.[facility] HospitalIn the event this information is protected by the Federal Confidentiality of Alcohol and Drug Abuse Patient Records regulations: The Federal rules restrict any use of the information to criminally investigate or prosecute any alcohol or drug abuse patient.[facility] HospitalIn the event this information is protected by the Federal Confidentiality of Alcohol and Drug Abuse Patient Records regulations: The Federal rules restrict any use of the information to criminally investigate or prosecute any alcohol or drug abuse patient.[facility] HospitalIn the event this information is protected by the Federal Confidentiality of Alcohol and Drug Abuse Patient Records regulations: The Federal rules restrict any use of the information to criminally investigate or prosecute any alcohol or drug abuse patient.[facility] HospitalIn the event this information is protected by the Federal Confidentiality of Alcohol and Drug Abuse Patient Records regulations: The Federal rules restrict any use of the information to criminally investigate or prosecute any alcohol or drug abuse patient.[facility] HospitalIn the event this information is protected by the Federal Confidentiality of Alcohol and Drug Abuse Patient Records regulations: The Federal rules restrict any use of the information to criminally investigate or prosecute any alcohol or drug abuse patient.[facility] HospitalIn the event this information is protected by the Federal Confidentiality of Alcohol and Drug Abuse Patient Records regulations: The Federal rules restrict any use of the information to criminally investigate or prosecute any alcohol or drug abuse patient.[facility] HospitalIn the event this information is protected by the Federal Confidentiality of Alcohol and Drug Abuse Patient Records regulations: The Federal rules restrict any use of the information to criminally investigate or prosecute any alcohol or drug abuse patient.[facility] HospitalIn the event this information is protected by the Federal Confidentiality of Alcohol and Drug Abuse Patient Records regulations: The Federal rules restrict any use of the information to criminally investigate or prosecute any alcohol or drug abuse patient.[facility] HospitalIn the event this information is protected by the Federal Confidentiality of Alcohol and Drug Abuse Patient Records regulations: The Federal rules restrict any use of the information to criminally investigate or prosecute any alcohol or drug abuse patient.[facility] HospitalIn the event this information is protected by the Federal Confidentiality of Alcohol and Drug Abuse Patient Records regulations: The Federal rules restrict any use of the information to criminally investigate or prosecute any alcohol or drug abuse patient.[facility] HospitalIn the event this information is protected by the Federal Confidentiality of Alcohol and Drug Abuse Patient Records regulations: The Federal rules restrict any use of the information to criminally investigate or prosecute any alcohol or drug abuse patient.[facility] HospitalIn the event this information is protected by the Federal Confidentiality of Alcohol and Drug Abuse Patient Records regulations: The Federal rules restrict any use of the information to criminally investigate or prosecute any alcohol or drug abuse patient.[facility] HospitalIn the event this information is protected by the Federal Confidentiality of Alcohol and Drug Abuse Patient Records regulations: The Federal rules restrict any use of the information to criminally investigate or prosecute any alcohol or drug abuse patient.[facility] HospitalIn the event this information is protected by the Federal Confidentiality of Alcohol and Drug Abuse Patient Records regulations: The Federal rules restrict any use of the information to criminally investigate or prosecute any alcohol or drug abuse patient.[facility] HospitalIn the event this information is protected by the Federal Confidentiality of Alcohol and Drug Abuse Patient Records regulations: The Federal rules restrict any use of the information to criminally investigate or prosecute any alcohol or drug abuse patient.[facility] HospitalIn the event this information is protected by the Federal Confidentiality of Alcohol and Drug Abuse Patient Records regulations: The Federal rules restrict any use of the information to criminally investigate or prosecute any alcohol or drug abuse patient.[facility] HospitalIn the event this information is protected by the Federal Confidentiality of Alcohol and Drug Abuse Patient Records regulations: The Federal rules restrict any use of the information to criminally investigate or prosecute any alcohol or drug abuse patient.[facility] HospitalIn the event this information is protected by the Federal Confidentiality of Alcohol and Drug Abuse Patient Records regulations: The Federal rules restrict any use of the information to criminally investigate or prosecute any alcohol or drug abuse patient.[facility] HospitalIn the event this information is protected by the Federal Confidentiality of Alcohol and Drug Abuse Patient Records regulations: The Federal rules restrict any use of the information to criminally investigate or prosecute any alcohol or drug abuse patient.[facility] HospitalIn the event this information is protected by the Federal Confidentiality of Alcohol and Drug Abuse Patient Records regulations: The Federal rules restrict any use of the information to criminally investigate or prosecute any alcohol or drug abuse patient.[facility] HospitalIn the event this information is protected by the Federal Confidentiality of Alcohol and Drug Abuse Patient Records regulations: The Federal rules restrict any use of the information to criminally investigate or prosecute any alcohol or drug abuse patient.[facility] HospitalIn the event this information is protected by the Federal Confidentiality of Alcohol and Drug Abuse Patient Records regulations: The Federal rules restrict any use of the information to criminally investigate or prosecute any alcohol or drug abuse patient.[facility] HospitalIn the event this information is protected by the Federal Confidentiality of Alcohol and Drug Abuse Patient Records regulations: The Federal rules restrict any use of the information to criminally investigate or prosecute any alcohol or drug abuse patient.[facility] HospitalIn the event this information is protected by the Federal Confidentiality of Alcohol and Drug Abuse Patient Records regulations: The Federal rules restrict any use of the information to criminally investigate or prosecute any alcohol or drug abuse patient.[facility] HospitalIn the event this information is protected by the Federal Confidentiality of Alcohol and Drug Abuse Patient Records regulations: The Federal rules restrict any use of the information to criminally investigate or prosecute any alcohol or drug abuse patient.[facility] HospitalIn the event this information is protected by the Federal Confidentiality of Alcohol and Drug Abuse Patient Records regulations: The Federal rules restrict any use of the information to criminally investigate or prosecute any alcohol or drug abuse patient.[facility] HospitalIn the event this information is protected by the Federal Confidentiality of Alcohol and Drug Abuse Patient Records regulations: The Federal rules restrict any use of the information to criminally investigate or prosecute any alcohol or drug abuse patient.[facility] HospitalIn the event this information is protected by the Federal Confidentiality of Alcohol and Drug Abuse Patient Records regulations: The Federal rules restrict any use of the information to criminally investigate or prosecute any alcohol or drug abuse patient.[facility] HospitalIn the event this information is protected by the Federal Confidentiality of Alcohol and Drug Abuse Patient Records regulations: The Federal rules restrict any use of the information to criminally investigate or prosecute any alcohol or drug abuse patient.[facility] HospitalIn the event this information is protected by the Federal Confidentiality of Alcohol and Drug Abuse Patient Records regulations: The Federal rules restrict any use of the information to criminally investigate or prosecute any alcohol or drug abuse patient.[facility] HospitalIn the event this information is protected by the Federal Confidentiality of Alcohol and Drug Abuse Patient Records regulations: The Federal rules restrict any use of the information to criminally investigate or prosecute any alcohol or drug abuse patient.[facility] HospitalIn the event this information is protected by the Federal Confidentiality of Alcohol and Drug Abuse Patient Records regulations: The Federal rules restrict any use of the information to criminally investigate or prosecute any alcohol or drug abuse patient.[facility] HospitalIn the event this information is protected by the Federal Confidentiality of Alcohol and Drug Abuse Patient Records regulations: The Federal rules restrict any use of the information to criminally investigate or prosecute any alcohol or drug abuse patient.[facility] HospitalIn the event this information is protected by the Federal Confidentiality of Alcohol and Drug Abuse Patient Records regulations: The Federal rules restrict any use of the information to criminally investigate or prosecute any alcohol or drug abuse patient.[facility] HospitalIn the event this information is protected by the Federal Confidentiality of Alcohol and Drug Abuse Patient Records regulations: The Federal rules restrict any use of the information to criminally investigate or prosecute any alcohol or drug abuse patient.[facility] HospitalIn the event this information is protected by the Federal Confidentiality of Alcohol and Drug Abuse Patient Records regulations: The Federal rules restrict any use of the information to criminally investigate or prosecute any alcohol or drug abuse patient.[facility] HospitalIn the event this information is protected by the Federal Confidentiality of Alcohol and Drug Abuse Patient Records regulations: The Federal rules restrict any use of the information to criminally investigate or prosecute any alcohol or drug abuse patient.[facility] HospitalIn the event this information is protected by the Federal Confidentiality of Alcohol and Drug Abuse Patient Records regulations: The Federal rules restrict any use of the information to criminally investigate or prosecute any alcohol or drug abuse patient.[facility] HospitalIn the event this information is protected by the Federal Confidentiality of Alcohol and Drug Abuse Patient Records regulations: The Federal rules restrict any use of the information to criminally investigate or prosecute any alcohol or drug abuse patient.[facility] HospitalIn the event this information is protected by the Federal Confidentiality of Alcohol and Drug Abuse Patient Records regulations: The Federal rules restrict any use of the information to criminally investigate or prosecute any alcohol or drug abuse patient.[facility] HospitalIn the event this information is protected by the Federal Confidentiality of Alcohol and Drug Abuse Patient Records regulations: The Federal rules restrict any use of the information to criminally investigate or prosecute any alcohol or drug abuse patient.[facility] HospitalIn the event this information is protected by the Federal Confidentiality of Alcohol and Drug Abuse Patient Records regulations: The Federal rules restrict any use of the information to criminally investigate or prosecute any alcohol or drug abuse patient.[facility] HospitalIn the event this information is protected by the Federal Confidentiality of Alcohol and Drug Abuse Patient Records regulations: The Federal rules restrict any use of the information to criminally investigate or prosecute any alcohol or drug abuse patient.[facility] HospitalIn the event this information is protected by the Federal Confidentiality of Alcohol and Drug Abuse Patient Records regulations: The Federal rules restrict any use of the information to criminally investigate or prosecute any alcohol or drug abuse patient.[facility] HospitalIn the event this information is protected by the Federal Confidentiality of Alcohol and Drug Abuse Patient Records regulations: The Federal rules restrict any use of the information to criminally investigate or prosecute any alcohol or drug abuse patient.[facility] HospitalIn the event this information is protected by the Federal Confidentiality of Alcohol and Drug Abuse Patient Records regulations: The Federal rules restrict any use of the information to criminally investigate or prosecute any alcohol or drug abuse patient.[facility] HospitalIn the event this information is protected by the Federal Confidentiality of Alcohol and Drug Abuse Patient Records regulations: The Federal rules restrict any use of the information to criminally investigate or prosecute any alcohol or drug abuse patient.[facility] HospitalIn the event this information is protected by the Federal Confidentiality of Alcohol and Drug Abuse Patient Records regulations: The Federal rules restrict any use of the information to criminally investigate or prosecute any alcohol or drug abuse patient.[facility] HospitalIn the event this information is protected by the [facility] Confidentiality of Alcohol and Drug Abuse Patient Records regulations: The Federal rules restrict any use of the information to criminally investigate or prosecute any alcohol or drug abuse patient.[facility] HospitalIn the event this information is protected by the Federal Confidentiality of Alcohol and Drug Abuse Patient Records regulations: The Federal rules restrict any use of the information to criminally investigate or prosecute any alcohol or drug abuse patient.[facility] Care Teams (unrecognized sec tion and content) Instrument Repair Technician Relationship Specialty Start Date End Date Erick Lemus MD [address] [place], [place] [id number] PCP - General Family Practice 03/15/19 Instrument Repair Technician Relationship Specialty Start Date End Date Erick Lemus MD [address] [place], [place] [id number] PCP - General Family Practice 03/15/19 Instrument Repair Technician Relationship Specialty Start Date End Date Erick Lemus MD [address] [place] [address] PCP - General Family Medicine 03/15/19 Instrument Repair Technician Relationship Specialty Start Date End Date Erick Lemus MD [address] [facility] [place] [address] PCP - General Family Medicine 03/15/19 Instrument Repair Technician Relationship Specialty Start Date End Date Erick Lemus MD [address] [facility] [place] [address] PCP - General Family Medicine 03/15/19 Instrument Repair Technician Relationship Specialty Start Date End Date Erick Lemus MD [address] [facility] [place] [address] PCP - General Family Medicine 03/15/19 Instrument Repair Technician Relationship Specialty Start Date End Date Erick eLmus MD [address] [facility] [place] [address] PCP - General Family Medicine 03/15/19 Instrument Repair Technician Relationship Specialty Start Date End Date Erick Lemus MD [address] [facility] [place] [address] PCP - General Family Medicine 03/15/19 Instrument Repair Technician Relationship Specialty Start Date End Date Erick Lemus MD [address] [facility] [place] [address] PCP - General Family Medicine 03/15/19 Instrument Repair Technician Relationship Specialty Start Date End Date Erick Lemus MD [address] [facility] [place] [address] PCP - General Family Medicine 03/15/19 Instrument Repair Technician Relationship Specialty Start Date End Date Erick Lemus MD [address] [facility] [place] [address] PCP - General Family Medicine 03/15/19 Instrument Repair Technician Relationship Specialty Start Date End Date Erick Lemus MD [address] [facility] [place] [address] PCP - General Family Medicine 03/15/19 Instrument Repair Technician Relationship Specialty Start Date End Date Erick Lemus MD [address] [facility] [place] [address] PCP - General Family Medicine 03/15/19 Instrument Repair Technician Relationship Specialty Start Date End Date Erick Lmeus MD [address] [facility] [place] [address] PCP - General Family Medicine 03/15/19 Instrument Repair Technician Relationship Specialty Start Date End Date Erick Lemus MD [address] [facility] [place] [address] PCP - General Family Medicine 03/15/19 Instrument Repair Technician Relationship Specialty Start Date End Date Erick Lemus MD [address] [facility] [place] [address] PCP - General Family Medicine 03/15/19 Instrument Repair Technician Relationship Specialty Start Date End Date Erick Lemus MD [address] [facility] [place] [address] PCP - General Family Medicine 03/15/19 Instrument Repair Technician Relationship Specialty Start Date End Date Erick Lemus MD [address] [facility] [place] [address] PCP - General Family Medicine 03/15/19 Instrument Repair Technician Relationship Specialty Start Date End Date Erick Lemus MD [address] [place] [address] PCP - General Family Medicine 03/15/19 Instrument Repair Technician Relationship Specialty Start Date End Date Erick Lemus MD [address] [place] [address] PCP - General Family Medicine 03/15/19 Podlogar, Aissatou, RECORD PRODUCER.LAND PLANNER [address] [place] [address] [employer] [facility] 07/13/24 Instrument Repair Technician Relationship Specialty Start Date End Date Erick Lemus MD [address] [place] [address] PCP - General Family Medicine 03/15/19 Podlogar, Aissatou, RECORD PRODUCER.LAND PLANNER [address] [place] [address] [facility] 07/13/24 Instrument Repair Technician Relationship Specialty Start Date End Date Erick Lemus MD [address] [place] [address] PCP - General Family Medicine 03/15/19 Podlogar, Aissatou, RECORD PRODUCER.LAND PLANNER [address] [place] [address] [facility] 07/13/24 Instrument Repair Technician Relationship Specialty Start Date End Date Erick Lemus MD [address] [place] [address] PCP - General Family Medicine 03/15/19 Podlogar, Aissatou, RECORD PRODUCER.LAND PLANNER [address] [place] [address] [facility] 07/13/24 Instrument Repair Technician Relationship Specialty Start Date End Date Erick Lemus MD [address] [place] [address] PCP - General Family Medicine 03/15/19 Podlogar, Aissatou, RECORD PRODUCER.LAND PLANNER [address] [place] [address] [facility] 07/[facility]24 Instrument Repair Technician Relationship Specialty Start Date End Date Erick Lemus MD [address] [place] [address] PCP - General Family Medicine 03/15/19 Podlogar, Aissatou, RECORD PRODUCER.LAND PLANNER [address] [place] [address] [facility] 07/13/24 Instrument Repair Technician Relationship Specialty Start Date End Date Erick Lemus MD [address] [place] [address] PCP - General Family Medicine 03/15/19 Podlogar, Aissatou, RECORD PRODUCER.LAND PLANNER [address] [place] [address] [facility] 07/13/24 Instrument Repair Technician Relationship Specialty Start Date End Date Erick Lemus MD [address] [place] [address] PCP - General Family Medicine 03/15/19 Podlogar, CHRISTOPH Reyez.LAND PLANNER [address] [facility] [place] [address] [facility] 07/13/24 Instrument Repair Technician Relationship Specialty Start Date End Date Erick Lemus MD [address] [facility] [place] [address] PCP - General Family Medicine 03/15/19 Podlogar, CHRISTOPH Reyez.LAND PLANNER [address] [place] [address] [facility] 07/13/24 Jael Woodward APRN.LAND PLANNER [address] [place] [address] [facility] 10/18/24 Instrument Repair Technician Relationship Specialty Start Date End Date Erick Lemus MD [address] [place] [address] PCP - General Family Medicine 03/15/19 PodlogarAissatou APRN.LAND PLANNER [address] [facility] [place] [address] [facility] Medicine 07/13/24 Jael Woodward APRN.LAND PLANNER [address] [place] [address] Formerly [facility] 10/18/24 Instrument Repair Technician Relationship Specialty Start Date End Date Erick Lemus MD [address] [facility] [place] [address] PCP - General Family Medicine 03/15/19 Podlogar, Aissatou, RECORD PRODUCER.LAND PLANNER [address] [facility] [place] [address] [facility] 07/13/24 Jael Woodward APRN.LAND PLANNER [address] [place] [address] [facility] 10/28/24 Instrument Repair Technician Relationship Specialty Start Date End Date Erick Lemus MD [address] [place] [address] PCP - General Family Medicine 03/15/19 Podlogar, Aissatou, RECORD PRODUCER.LAND PLANNER [address] [place] [address] [facility] 07/13/24 Jael Woodward RECORD PRODUCER.LAND PLANNER [address] [place] [address] [facility] 10/28/24 Instrument Repair Technician Relationship Specialty Start Date End Date Erick Lemus MD [address] [place] [address] PCP - General Family Medicine 03/15/19 Podlogar, Aissatou, RECORD PRODUCER.LAND PLANNER [address] [facility] [place] [address] [facility] 07/13/24 Jael Woodward RECORD PRODUCER.LAND PLANNER [address] [place] [address] [facility] 10/28/24 Instrument Repair Technician Relationship Specialty Start Date End Date Erick Lemus MD [address] [facility] [place] [address] PCP - General Family Medicine 03/15/19 PodlogarAissatou APRN.LAND PLANNER [address] [place] [address] [facility] 07/13/24 Jael Woodward APRN.LAND PLANNER [address] [place] [address] [facility] 10/28/24 Instrument Repair Technician Relationship Specialty Start Date End Date Erick Lemus MD [address] [place] [address] PCP - General Family Medicine 03/15/19 PodlogarAissatou APRN.LAND PLANNER [address] [place] [address] [facility] 07/13/24 Jael Woodward APRN.LAND PLANNER [address] [place] [address] [facility] 10/28/24 Instrument Repair Technician Relationship Specialty Start Date End Date Erick Lemus MD [address] [place] [address] PCP - General Family Medicine 03/15/19 PodlogarAissatou APRN.LAND PLANNER [address] [place] [address] [facility] 07/13/24 Jael Woodward APRN.LAND PLANNER [address] [place], [place] [phone] [facility] Instrument Repair Technician Relationship Specialty Start Date End Date Erick Lemus MD [address] [facility] [place] [address] PCP - General Family Medicine 03/15/19 Podlogar, VIRGILIO ReyezN.LAND PLANNER [address] [place] [address] [facility] 07/13/24 Jael Woodward APRN.LAND PLANNER [address] [place] [address] Formerly [facility] 10/28/24 Instrument Repair Technician Relationship Specialty Start Date End Date Erick Lemus MD [address] [place] [address] PCP - General Family Medicine 03/15/19 Podlogar, Aissatou RECORD PRODUCER.LAND PLANNER [address] [place] [address] [facility] Medicine 07/13/24 Jael Woodward RECORD PRODUCER.LAND PLANNER [address] [place] [address] Formerly [facility] 10/28/24 Instrument Repair Technician Relationship Specialty Start Date End Date Erick Lemus MD [address] [place], [place] [address] [phone] PCP - General Family Medicine 03/15/19 Podlogar, Aissatou, RECORD PRODUCER.LAND PLANNER [address] [place] [address] Formerly [facility] 07/13/24 Jael Woodward RECORD PRODUCER.LAND PLANNER [address] [place] [address] Formerly [facility] 10/28/24 Instrument Repair Technician Relationship Specialty Start Date End Date Erick Lemus MD [address] [place] [address] PCP - General Family Medicine 03/15/19 Podlogar, Aissatou RECORD PRODUCER.LAND PLANNER [address] [place] [address] Formerly [facility] 07/13/24 Jael Woodward RECORD PRODUCER.LAND PLANNER [address] [place] [address] Formerly [facility] 10/28/24 Instrument Repair Technician Relationship Specialty Start Date End Date Erick Lemus MD [address] [place] [address] PCP - General Family Medicine 03/15/19 Podlogar, Aissatou RECORD PRODUCER.LAND PLANNER [address] [place] [address] [facility] Medicine 07/13/24 Jael Woodward RECORD PRODUCER.LAND PLANNER [address] [place] [address] Formerly [facility] 10/28/24 Instrument Repair Technician Relationship Specialty Start Date End Date Erick Lemus MD [address] [place] [address] PCP - General Family Medicine 03/15/19 Podlogar, Aissatou, RECORD PRODUCER.LAND PLANNER [address] [facility] [place] [address] [facility] 07/13/24 Jael Woodward RECORD PRODUCER.LAND PLANNER [address] [place] [address] [facility] 10/28/24 Instrument Repair Technician Relationship Specialty Start Date End Date Erick Lemus MD [address] [facility] [place] [address] PCP - General Family Medicine 03/15/19 Podlogar, Aissatou, RECORD PRODUCER.LAND PLANNER [address] [place] [address] [facility] 07/13/24 Jael Woodward, RECORD PRODUCER.LAND PLANNER [address] [place] [address] Formerly [facility] 10/28/24 Instrument Repair Technician Relationship Specialty Start Date End Date Erick Lemus MD [address] [facility] [place] [address] PCP - General Family Medicine 03/15/19 Podlogar, Aissatou, RECORD PRODUCER.LAND PLANNER [address] [facility] [place] [address] [facility] 07/13/24 Instrument Repair Technician Relationship Specialty Start Date End Date Erick Lemus MD [address] [facility] [place] [address] PCP - General Family Medicine 03/15/19 Podlogar, Aissatou, RECORD PRODUCER.LAND PLANNER [address] [place], [place] [address] [facility]24 Team Status: Active Member Role Status Dates Dr. Rico Lemus MD Primary Care Provider Acti ve Team Status: Inactive Member Role Status Dates Dr. Rico Lemus MD Primary Care Provider Acti ve Start: January 27, 2025 End: January 27, 2025 Dr. Rico Lemus MD Referring Provider Active Start: January 27, 2025 End: January 27, 2025 Stanley KIRBY, PA Attending Provider Active Start: January 27, 2025 End: January 27, 2025 Instrument Repair Technician Relationship Specialty Start Date End Date Erick Lemus MD [facility] [place], [place] [address] PCP - General Family Medicine 03/15/19 PodlogarAissatou APRN.LAND PLANNER [address] [place] [address] [facility] Medicine 07/13/24 Jael Woodward APRN.LAND PLANNER [address] [place] [phone] [facility] 10/28/24 12/22/24 Jael Woodward APRN.LAND PLANNER [facility] [place], [place] [address] [facility] 01/16/25 Instrument Repair Technician Relationship Specialty Start Date End Date Erick Lemus MD [address] [place], [place] [id number] PCP - General Family Medicine 03/15/19 PodlogarAissatou APRN.LAND PLANNER [address] [place] [address] [facility] 07/13/24 Jael Woodward APRN.LAND PLANNER [address] [place] [address] [facility] 01/16/25 Instrument Repair Technician Relationship Specialty Start Date End Date Erick Lemus MD [address] [place] [address] PCP - General Family Medicine 03/15/19 PodlogarAissatou APRN.LAND PLANNER [address] [place] [address] [facility] 07/13/24 Jael Woodward APRN.LAND PLANNER [address] [place] [address] [facility] Family [facility] 01/16/25 Instrument Repair Technician Relationship Specialty Start Date End Date Erick Lemus MD [address] [place] [address] PCP - General Family Medicine 03/15/19 PodlogarAissatou APRN.LAND PLANNER [address] [place] [address] [facility] 07/13/24 Jael Woodward APRN.LAND PLANNER [address] [place] [address] [facility] 10/28/24 12/22/24 Jael Woodward APRN.LAND PLANNER [address] [place] [address] [facility] 01/16/25 Reason for Visit (unrecogniz ed section and content) Reason Comments CANCELLED ORDER Reason Comments Physical Specialty Diagnoses / Procedures Referred By Samara t Referred To Contact [facility] Diagnoses All Medically Necessary consult/treatments - 100% FAS Procedures All Medically Necessary consult/treatments - 100% FAS Self [facility] [address] Referral ID Status Reason Start Date Expiration Date Visits Requested Visits Authorized [id number] Authorized Patient Cleared - Qualified 100% FAS 04/06/2023 07/05/2023 99 99 Reason Onset Date Comments Refill Request 06/19/2023 Reason Onset Date Comments Refill Request 06/16/2023 Reason Onset Date Comments Refill Request 07/16/2023 Reason Onset Date Comments Refill Request 09/16/2023 Reason Onset Date Comments Refill Request 10/24/2023 Reason Comments Follow Up Refill Request Specialty Diagnoses / Procedures Referred By Samara t Referred To Contact Diagnoses office visit Procedures office visit Self [facility] [address] Referral ID Status Reason Start Date Expiration Date Visits Requested Visits Authorized [id number] Authorized Patient Cleared - Qualified 100% FAS 11/07/2023 02/05/2024 99 99 Reason Comments Suture Removal Suture removal left knee x 5 placed in ER [facility] Reason Comments Hospital F/U [facility] 04/18 for abdomin al pain Reason Onset Date Comments Refill Request 06/28/2024 Reason Comments Adrenal Specialty Diagnoses / Procedures Referred By Contact Referred To Contact Endocrinology / ENDOCRINOLOGY Diagnoses 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]; Hospital discharge follow-up [Z09]; Adrenal mass 1 cm to 4 cm in diameter (HCC) [E27.8] Procedures [facility] PodlogarAissatou, RECORD PRODUCER.LAND PLANNER [address] [place] [address] Nina Lerner MD [address] [place] [address] Referral ID Status Reason Start Date Expiration Date Visits Requested Visits Authorized [id number] Authorized Patient Cleared - Qualified 100% FAS 09/26/2024 99 99 Reason Onset Date Comments Refill Request 07/01/2024 Reason Comments Appointment Provider out 4 due to illness attempted to contact patient to reschedule appt Reason Comments Appointment Reason Onset Date Comments Results 10/11/2024 Reason Comments Mammogram Result Call Back Reason Comments Orders Lab orders needed Reason Comments Radiology CT Specialty Diagnoses / Procedures Referred By Contac t Referred To Contact [facility] Diagnoses Disorder of adrenal gland (HCC) Procedures CT ADRENAL WO/W IVCON CT ABDOMEN W & W/O CONTRAST Nina Lerner MD [address] [place] [address] Phone: tel: fax: [place] [address] Referral ID Status Reason Start Date Expiration Date V isits Requested Visits Authorized [id number] Closed Auto-Generate d Referral 06/28/2024 07/28/2025 1 1 Reason Onset Date Comments Results 10/17/2024 Reason Comments Consult FACE SHEET Reason Comments Adrenal Ct results Specialty Diagnoses / Procedures Referred By Contact Referred To Contact Endocrinology / ENDOCRINOLOGY Diagnoses 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]; Hospital discharge follow-up [Z09]; Adrenal mass 1 cm to 4 cm in diameter (HCC) [E27.8] Procedures NEW [facility] PodlogarAissatou APRN.LAND PLANNER [address] [place] [address] Phone: tel: fax: Nina Lerner MD [address] [place] [address] Phone: tel: fax: Referral ID Status Reason Start Date Expiration Date V isits Requested Visits Authorized [id number] Closed Patient Cleared - Qualified 100% FAS 06/28/2024 09/26/2024 99 99 Reason Comments 11/20/[id number] laprascopic adrenalec katy Right laprascopic adrenalectomy Reason Comments Consult Specialty Diagnoses / Procedures Referred By Contac t Referred To Contact Diagnoses Adrenal mass (HCC) Procedures REFER TO [facility] - PREOPERATIVE OPTIMIZATION OFFICE/OUTPATIENT [facility] 60 MINUTES John Bradley MD [address] [id number] Phone: tel: fax: Referral ID Status Reason Start Date Expiration Date V isits Requested Visits Authorized [id number] Closed PCP Requested Referral 11/05/2024 11/05/2025 1 1 Reason Comments Spirometry Specialty Diagnoses / Procedures Referred By Contac t Referred To Contact [facility] Diagnoses Pre-operative examination Procedures SPIROMETRY WITH DILATOR IF OBSTRUCTED BRNCDILAT RSPSE SPMTRY PRE&POST-BRNCDILAT ADMN Gurvinder Garcia, RECORD PRODUCER.LAND PLANNER [address] [place] [address] Phone: tel: fax: [facility] [address] [place] [address] Referral ID Status Reason Start Date Expiration Date V isits Requested Visits Authorized [id number] Closed Auto-Generate d Referral 11/08/2024 12/08/2025 1 1 Reason Comments Follow Up Phone Call Reason Comments Nm Pet Request Reason Comments Post-Op Visit Reason Onset Date Comments Results 12/18/2024 Reason Comments Pheochromocytoma Specialty Diagnoses / Procedures Referred By Contac t Referred To Contact Diagnoses Pheochromocytoma of right adrenal gland Procedures CONSULT TO MEDICAL GENETICS - CANCER MEDICAL GENETICS COUNSELING EACH 30 MINUTES John Bradley MD [address] [phone] Phone: tel: fax: [facility] [address] [place] [address] Referral ID Status Reason Start Date Expiration Date Visits Requested Visits Authorized [id number] Pending Review PCP Requested Referral Auto-Generate d Referral 11/28/2024 11/28/2025 1 1 Reason Comments Adrenal INFORMATION SOURCE (unrecogn ized section and content) DATE CREATED AUTHOR 11/29/2024 Pauline Patel al DATE CREATED AUTHOR AUTHOR'S ORGANIZ ATION 01/31/2025 [facility] DATE CREATED AUTHOR AUTHOR'S ORGANIZ ATION 02/15/2025 [facility] DATE CREATED AUTHOR AUTHOR'S ORGANIZ ATION 02/16/2025 [facility] Goals (unrecognized section and content) Goals may be documented in a n alternate sectionGoals may be documented in an alternate section FOR RECORDS PERTAINING TO PATIENTS WHO ARE OR HAVE BEEN ENROLLED IN A CHEMICAL DEPENDENCY/SUBSTANCEABUSE PROGRAM, SOME INFORMATION MAY BE OMITTED. This clinical summary was aggregated from multiple sources. Caution should be exercised in using it in the provision of clinical care. This summary normalizes information from multiple sources, and as a consequence, information in this document may materially change the coding, format and clinical context of patient data. In addition, data may be omitted in some cases. CLINICAL DECISIONS SHOULD BE BASED ON THE PRIMARY CLINICAL RECORDS. [facility] [employer] [facility]. provides no warranty or guarantee of the accuracy or completeness of information in this document.
--- OUTSIDE RECORDS SUMMARY | 2025-02-19 03:44 | XMS RPT_ITS | CCD ---
Author Organization [facility] Care Team Providers Care Train Station Server Name Role Phone Erick Lemus MD Primary Care Provider Erick Lemus MD Primary Care Provider Podlogar AUTOMOTIVE GLASS MECHANIC.Aissatou BENAVIDEZ Unavailable Knoble AUTOMOTIVE GLASS MECHANIC.Jael BENAVIDEZ Unavailable [place] AUTOMOTIVE GLASS MECHANIC.Jael BENAVIDEZ Unavailable Mariah CANTRELL, Dr. Gómez Primary Care Provider Dr. Rico Lemus MD Referring Provider [phone] Stanley Garcia Attending Provider Knoble AUTOMOTIVE GLASS MECHANIC.Jael BENAVIDEZ Unavailable [place] AUTOMOTIVE GLASS MECHANIC.Jael BENAVIDEZ Unavailable ERICK LEMUS Primary Care Unavailab le IMRNA, JOHN Referring Unavailabl e MOUNA HIRSCH Attending Unavailable ERICK LEMUS Primary Care Unavailab ERICK Ortez Referring Unavailab le NINA LERNER Attending Unavaila [...] Primary Care Unavailable Rico Lemus Referring Unavailable Stalney Garcia Attending Unavailable Kostas Coffman Referring Unavailable Friend, Alex Attending Unavailable Allergies Allergy Classification Reported Allergen(s) Allergy Type Date of Onset Reaction(s) Facility (20 sources) FLUoxetine; Translations: [FLUOXETINE] Drug Allergy 02-04-2021 GI Upset [facility] Work Phone: (1 source) FLUoxetine Drug Allergy 01-27-2025 [facility] Repository Medications Current Medications Medication Drug Class(es) [...] April 16, 2024 4:24pm polyethylene glycol 3350 64173 mg powder for oral solution (1 source) [...] Test Name Value Interpretation Reference Range Facility [facility] 02-13-2025 [facility]CO Letter Text Normal [facility] Office Visit Reporton 2024 Office Visit Report [facility] [address] [place] [address] OFFICE VISIT Date of Service: 01/27/25 MR#: [id number] Acct: [id number] Patient: VIOLET CHIN Rep #: [id number] : 1965 Provider: MIRTA Thakkar Age/Sex: 59/F Location: [facility] Status: Signed Intake Vital Signs 01/24/25 14:29 Height 5 ft 3 in Intake Visit Reasons: PE 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 Continue CT surveillance as warranted clinically. Title Checker: [facility] Transcribe Date/Time: Jan 30 2025 11:56A Dictated by : NATASHA HARDWICK MD This examination was interpreted and the report reviewed and electronically signed by: NATASHA HARDWICK MD on Jan 30 2025 12:31PM EST [id number] Normal [facility] PET+CT Brain for tau protein on 01-30-2025 [...] resolution. Continue CT surveillance as warranted clinically. Title Checker: [facility] Transcribe Date/Time: Jan 30 2025 11:56A Dictated by : NATASHA HARDWICK MD This examination was interpreted and the report reviewed and electronically signed by: NATASHA HARDWICK MD on Jan 30 2025 12:31PM EST [facility] * * *Final Report* * [...] osteophytes. Soft Tissues: No radiotracer avid lesion. Snatch that [facility] Provider, [facility] - 01/30/2025 * * *Final Report* * [...] resolution. Continue CT surveillance as warranted clinically. Title Checker: ALIZA Transcribe Date/Time: Jan 30 2025 11:56A Dictated by : NATASHA HARDWICK MD This examination was interpreted and the report reviewed and electronically signed by: NATASHA HARDWICK MD on Jan 30 2025 12:31PM EST [facility] Radiology Study observation (narrative) [facility] PET+CT Brain for tau protein Ordered By: Ccf Provider on 01-30-2025 [facility] Urgent Care Visit Reporton 0 01-27-2025 Urgent Care Visit Report [facility] [address], [address] [place] [address] OFFICE VISIT Date of Service: 01/27/25 MR#: [id number] Acct: [id number] Name: VIOLET CHIN Rep #: [id number] : 1965 Provider: MIRTA Thakkar Age/Sex: 59/F Location: [facility] Status: Signed Intake Vital Signs 04/17/24 12:39 01/24/25 14:29 Height 5 ft 3 in 5 ft 3 in Intake Visit Reasons: PE NON DOT PHYSICAL/ROSA BRUSH Accompanied by: Self Allergies fluoxetine (From [employer]) Allergy (Verified 01/27/25 15:26) Abd cramps/diarrhea Medications [...] Yes Coding Level of Care Code Attention Advertising Associate Diagnoses Physical exam, pre-employment Z02.1 Assessment and Plan Assessment and Plan (1) Physical exam, pre-employment: Status: Acute 01/27/25 1529 Date Stanley Flaherty Signature: Date (if applicable) [facility] Office Visit (ENWSTR ) ----- VIOLET CHIN ([id number]) 1965 F Date Time Provider Department 12/31/24 4:00 PM NINA LERNER ENWSTR During your visit today, we recorded the following information about you: Pulse Respiration Blood pressure Weight 71/minute 19/minute 138/84 91 kg Height 1.626 m Nina Lerner MD 01/23/2025 7:02 PM Signed [facility] Follow up note Patient referred by: Aissatou Mac 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 Normal [facility] DBT Breast - bilateral diagn ostic for [...] Trenton Hernández M.D. Electronically signed on: 12/18/2024 Title Checker: PETER Transcribe Date/Time: Dec 18 2024 8:04A Dictated by: TRENTON HERNÁNDEZ MD This examination was interpreted and the report reviewed and electronically signed by: TRENTON HERNÁNDEZ MD on Dec 18 2024 9:50AM [facility] DIVISION OF RADIOLOGY * * *Final Report* * * DATE OF EXAM: Dec 18 2024 8:22AM [facility] 0627 - [place] DIAG W GERALD WES / PROCEDURE REASON: Abnormal mammogram * * * * Physician Interpretation * * * * RESULT: [place] [address] #[id number] - [facility] DIAG W GERALD WES #[id number] - [facility] US BREAST LTD #[id number] - [facility] US BREAST LTD RT HISTORY: 59 year-old [...] the mammographic finding. DIVISION OF RADIOLOGY Provider, [facility] - 12/18/2024 * * *Final Report* * * DATE OF EXAM: Dec 18 2024 8:22AM [facility] 0627 - [place] DIAG W GERALD WES / PROCEDURE REASON: Abnormal mammogram * * * * Physician Interpretation * * * * RESULT: [place] [address] #[id number] - [place] DIAG W GERALD WES #[id number] - [facility] US BREAST LTD LT #[id number] - [facility] US BREAST LTD RT HISTORY: 59 year-old [...] Trenton Hernández M.D. Electronically signed on: 12/18/2024 Title Checker: PETER Transcribe Date/Time: Dec 18 2024 8:04A Dictated by: TRENTON HERNÁNDEZ MD This examination was interpreted and the report reviewed and electronically signed by: TRENTON HERNÁNDEZ MD on Dec 18 2024 9:50AM EST [facility] DIAG W GERALD BILon 2024 [facility] DIAG W GERALD WES * * *Final Report* * * DATE OF EXAM: Dec 18 2024 8:22AM [facility] 0627 - [facility] DIAG W GERALD WES / PROCEDURE REASON: Abnormal mammogram * * * * Physician Interpretation * * * * RESULT: [address] [address] [place] [address] #[id number] - [facility] DIAG W GERALD WES #[id number] - [facility] US BREAST LTD LT #[id number] - [facility] US BREAST LTD RT HISTORY: 59 year-old [...] Trenton Hernández M.D. Electronically signed on: 12/18/2024 Title Checker: PETER Transcribe Date/Time: Dec 18 2024 8:04A Dictated by: TRENTON HERNÁNDEZ MD This examination was interpreted and the report reviewed and electronically signed by: TRENTON HERNÁNDEZ MD on Dec 18 2024 9:50AM EST [id number] Normal [facility] BREAST LTD LTon 12-18 [facility] US BREAST LTD LT * * *Final Report* * * DATE OF EXAM: Dec 18 2024 9:37AM [facility] 0593 - [facility] US BREAST LTD LT / PROCEDURE REASON: Abnormal mammogram * * * * Physician Interpretation * * * * [place] [address] #[id number] - [facility] DIAG W GERALD WES #[id number] - [facility] US BREAST LTD LT #[id number] - [facility] US BREAST LTD RT HISTORY: 59 year-old [...] Trenton Hernández M.D. Electronically signed on: 12/18/2024 Title Checker: PETER Transcribe Date/Time: Dec 18 2024 9:26A Dictated by : TRENTON HERNÁNDEZ MD This examination was interpreted and the report reviewed and electronically signed by: TRENTON HERNÁNDEZ MD on Dec 18 2024 9:50AM EST [id number] Normal [facility] US BREAST LTD RTon 12-18 [facility] US BREAST LTD RT * * *Final Report* * * DATE OF EXAM: Dec 18 2024 9:25AM [facility] 0594 - [facility] [employer] BREAST LTD RT / PROCEDURE REASON: Abnormal mammogram * * * * Physician Interpretation * * * * [place] [address] #[id number] - [facility] DIAG W GERALD WES #[id number] - [facility] [employer] BREAST LTD LT #[id number] - [facility] [employer] BREAST LTD RT HISTORY: 59 year-old patient [...] ultrasound of the indicated area was performed. Ppoe scale images were saved. ULTRASOUND FINDINGS: Finding [...] Trenton Hernández M.D. Electronically signed on: 12/18/2024 Title Checker: PETER Transcribe Date/Time: Dec 18 2024 9:16A Dictated by : TRENTON HERNÁNDEZ MD This examination was interpreted and the report reviewed and electronically signed by: TRENTON HERNÁNDEZ MD on Dec 18 2024 9:50AM EST [id number] Normal [facility] No Panel InformationOrdered By: Ccf Provider on 12-18-2024 [facility] No Panel Informationon 12-18 Radiology Study observation (narrative) [facility] US Breast - left limitedon 0 [...] Trenton Hernández M.D. Electronically signed on: 12/18/2024 Title Checker: PETER Transcribe Date/Time: Dec 18 2024 9:26A Dictated by : TRENTON HERNÁNDEZ MD This examination was interpreted and the report reviewed and electronically signed by: TRENTON HERNÁNDEZ MD on Dec 18 2024 9:50AM [facility] DIVISION OF RADIOLOGY * * *Final Report* * * DATE OF EXAM: Dec 18 2024 9:37AM U 0593 - [facility] [employer] BREAST LTD LT / PROCEDURE REASON: Abnormal mammogram * * * * Physician Interpretation * * * * [place] [address] #[id number] - [place] DIAG W GERALD WES #[id number] - [facility] [employer] BREAST LTD LT #[id number] - [employer] BREAST LTD RT HISTORY: 59 year-old patient [...] finding. DIVISION OF RADIOLOGY Provider, Berenice parnell Dora - 12/18/2024 * * *Final Report* * * DATE OF EXAM: Dec 18 2024 9:37AM [facility]U 0593 - [facility] [employer] BREAST LTD LT / PROCEDURE REASON: Abnormal mammogram * * * * Physician Interpretation * * * * [address] [address] [place] [address] #[id number] - [facility] PRASANNA W GERALD WES #[id number] - [facility] [employer] BREAST LTD LT #[id number] - [facility] [employer] BREAST LTD RT HISTORY: 59 year-old patient [...] Trenton Hernández M.D. Electronically signed on: 12/18/2024 Title Checker: PETER Transcribe Date/Time: Dec 18 2024 9:26A Dictated by : TRENTON HERNÁNDEZ MD This examination was interpreted and the report reviewed and electronically signed by: TRENTON HERNÁNDEZ MD on Dec 18 2024 9:50AM EST [facility] US Breast - right limitedon 12-18-2024 [...] Trenton Hernández M.D. Electronically signed on: 12/18/2024 Title Checker: PETER Transcriall Date/Time: Dec 18 2024 9:16A Dictated by : TRENTON HERNÁNDEZ MD This examination was interpreted and the report reviewed and electronically signed by: TRENTON HERNÁNDEZ MD on Dec 18 2024 9:50AM [facility] DIVISION OF RADIOLOGY * * *Final Report* * * DATE OF EXAM: Dec 18 2024 9:25AM [facility] 0594 - [facility] US BREAST LTD RT / PROCEDURE REASON: Abnormal mammogram * * * * Physician Interpretation * * * * [address] [address] #[id number] - [facility] DIAPage W GERALD WES #[id number] - [facility] US BREAST LTD LT #[id number] - [facility] US BREAST LTD RT HISTORY: 59 year-old [...] finding. DIVISION OF RADIOLOGY Provider, Shena Carmelo [facility] - 12/18/2024 * * *Final Report* * * DATE OF EXAM: Dec 18 2024 9:25AM [facility] 0594 - [facility] US BREAST LTD RT / PROCEDURE REASON: Abnormal mammogram * * * * Physician Interpretation * * * * [facility] [address] [place], [place] [id number] #[id number] - [facility] PRASANNA DUARTE WES #[id number] - [facility] BREAST LTD LT #[id number] - [facility] BREAST LTD RT HISTORY: 59 year-old patient [...] Trenton Hernández M.D. Electronically signed on: 12/18/2024 Title Checker: PETER Transcribe Date/Time: Dec 18 2024 9:16A Dictated by : TRENTON HERNÁNDEZ MD This examination was interpreted and the report reviewed and electronically signed by: TRENTON HERNÁNDEZ MD on Dec 18 2024 9:50AM EST [facility] Deni 12-04-2024 CNPN Telephone (ENSUMN) ----- VIOLET CHNI ([id number]) 1965 F Date Time Provider Department 12/04/24 JOHN BRADLEY During your visit today, we recorded the following information about you: Melanie Palomino 12/04/2024 7:26 AM Signed This form is used for MAIN CAMPUS APPOINTMENTS ONLY. Is this request for a [place] PET scan appointment? Yes: Transport Aide: Melanie Palomino Who do we call to [...] 12/12/2024 12:20 PM Addendum DOTATATE Comments for Frog Shaker: Any Dotatate Site Will the patient need [...] Scan Schedule at place of last (DOS) [facility] or [facility] Negative Scan Schedule at ANY Dotatate site requested Isotope used: [facility] Copper CU-[address]/ GA-68 (NETSPOT) Dotatate Dotatate [id number]/[id number] (54cCi) Gallium Dotatate (NetSpot) E27.8, E27.9, Auth#: Date Range: MD METZ: JOHN BRADLEY [id number] Member ID: Gene [id number] Site/Contact: Sadia, told to call [phone] [facility] Case/Ref#: Notes: called pt for the phone # off insurance card, stated she is scheduled for her PET/Ct Neuroendocrine scan in [place] on 12-16-24. Route to: P PET READING TUTOR Natasha Prasad 12/12/2024 12:10 PM Addendum Linden Cole 12/20/2024 8:59 AM Signed Linden Cole 12/20/2024 9:00 AM Signed Jan, Patient was scheduled on December 16 for PET Dotatate scan but was cancelled d/t being scheduled wrong. Please see snippet in previous message. Please contact patient to reschedule scan. Thank you, Linden Cole, DAQUANN RN [facility] Natasha Prasad 12/23/2024 6:46 AM Signed Jan, We do not schedule for [place] and do not handle incorrectly scheduled appointments for that site. If you had answered the PET questions correctly and said NO to being scheduled at it would have given you the numbers to call for the respective sites not scheduled by . Please contact [place] to reschedule the appointment correctly. [facility] [phone] Thank, Little This form is used for MAIN CAMPUS APPOINTMENTS ONLY. Is this request for a [place] PET scan appointment? No. If this appointment is for [facility] call [phone], [facility] [phone] other non - Main [place] sites call [facility] at [phone] or [phone]. Allergies As of Date: 12/04/2024 Noted Allergy Reaction PROZAC (FLUOXETINE) 02/04/2021 8 - GI Upset Date Reviewed: 11/20/2024 Reviewed by: María Elena Pop, RN - Fully Assessed Reason for Visit: Nm Pet Request [[id number]] Prescriptions as of 12/25/2024 - lisinopril-hydroCHLOROthi azide [...] adenoma [D36.9] (more content not included)... Normal [facility] Kareem 04-25-2 025 CATECHOLAMINE INTERPRETATION PLASMA See Note Normal [facility] Comment on above: Order Comment: Speci men Type: BLOOD SPECIMENOrdering Facility: [facility] Address: [address] [place], [place] [address] Result Comment: INTE RPRETIVE INFORMATION: Catecholamines Panel, [...] reference intervals for this test in the [facility] Test Directory ([place]). This test was developed and its performance characteristics determined by [facility]. It has not been cleared or approved by the US Food and Drug Administration. This test was performed in a CLIA certified laboratory and is intended for clinical purposes. Performed By: [facility] [address] [place] [address] Sales And Marketing Director: Iván Mcgee MD, PhD CLIA Number: [id number] Performed By: #### P LCAT ####[facility]IES[facility]IA [id number] [place] [address] DOPAMINE 146 pmol/L Normal <=240 [facility] Comment on above: Order Comment: Speci men Type: BLOOD SPECIMENOrdering Facility: [facility] Address: [address] [place] [address] Result Comment: INTE RPRETIVE INFORMATION: Dopamine Seated (15 min) less than or equal to 240 pmol/L Supine (30 min) less than or equal to 240 pmol/L Performed By: #### P LCAT ####[facility]IESCLIA [id number] [place] [address] EPINEPHRINE (P) 102 pmol/L Normal <=330 [facility] Comment on above: Order Comment: Speci men Type: BLOOD SPECIMENOrdering Facility: [facility] Address: [address] [place] [address] Result Comment: INTE RPRETIVE INFORMATION:Epinephrine Seated (15 min) less than or equal to 330 pmol/L Supine (30 min) less than or equal to 265 pmol/L Performed By: #### P LCAT ####[facility] [id number] [place] [address] NOREPINEPHRINE 2859 pmol/L Normal 5318-0871 [facility] Comment on above: Order Comment: Speci men Type: BLOOD SPECIMENOrdering Facility: [facility] Address: [address] [place] [address] Result Comment: INTE RPRETIVE INFORMATION: Norepinephrine Seated (15 min) 1050 - 4800 pmol/L Supine (30 min) 680 - 3100 pmol/L Performed By: #### P LCAT ####[facility]OR[facility]IESCLIA [id number] [place] [address] METANEPHRINES, FREE PLASMAon 11-29-2024 METANEPHRINE, PLASMA 27 pg/mL Normal 12-67 [facility] Comment on above: Order Comment: Speci men Type: BLOOD SPECIMENOrdering Facility: [facility] Address: [address] [place] [address] Result Comment: Refe rence Ranges: Hypertensive adult > or = 18 yrs old: 12-72 pg/mL Normotensive adult > or = 18 yrs old: 12-67 pg/mL Normotensive children < 18 yrs old: 10-95 pg/mL Performed By: #### P METAN ####[facility] LABCLIA [id number] [place] [address] [place] NORMETANEPHRINE, PLASMA 94 pg/mL Normal 18-101 [facility] Comment on above: Order Comment: Jacquii men Type: BLOOD SPECIMENOrdering Facility: [facility] Address: [address] [place] [address] Result Comment: Refe rence Ranges: Hypertensive adult > or = 18 yrs old: 24-145 pg/mL Normotensive adult > or = 18 yrs old: 18-101 pg/mL Normotensive children < 18 yrs old: 22-83 pg/mL Methyldopa may cause false elevation of normetanephrine levels in this assay. If patient is on methyldopa, interpret results with caution. Performed By: #### P METAN ####[facility] LABCLIA [id number] [address] [place] CNPNon 11-28-2024 CNPN Telephone (MMPRAD) ----- VIOLET CHIN ([id number]) 1965 F Date Time Provider Department 11/28/24 [...] to the capsule. A photograph is obtained. Manager Drive sections are submitted as follows: A1 periphery of mass with possible extension beyond capsule (see photograph) A2 senior human resources representative section of mass with necrosis A3-A4 mass [...] [D35.01] Order(s):METANEPHRINES, FREE PLASMA [SQPMETAN] Order #: [id number] FUTURE CATECHOLAMINES FRA [SQPLCAT] Order #: [id number] FUTURE CATECHOLAMINES FRACTIONATED, URINE FREE [SQURCAT2] Order #: [id number]. #:[id number] METANEPHRINES 24H UR [SQUMETAN] Order #: [id number]. #:[id number] CREATINE 24 HR UR [PMCZHG95] Order #: [id number]. #:[id number] CONSULT TO MEDICAL GENETICS - CANCER [[id number]] Order #: [id number]: 1 FUTURE Prescriptions as of 11/28/2024 - [...] Liver cyst [K76.89] (more content not included)... [facility] 11-22-[address] [facility] Telephone (ENSUMN) ----- VIOLET CHIN ([id number]) 1965 F Date Time Provider Department 11/22/24 JOHN BRADLEY During your visit today, we recorded the following information about you: Allergies As of Date: 11/22/2024 Noted Allergy Reaction PROZAC (FLUOXETINE) 02/04/2021 8 - GI Upset Date Reviewed: 11/20/2024 Reviewed by: María Elena Pop, RN - Fully Assessed Reason for Visit: Follow Up Phone Call [[id number]] Prescriptions as of 11/22/2024 - traMADol (ULTRAM) [...] Status:Closed by LINDEN COLE on 11/22/24 Normal [facility] ACTH Plas-mCncon 11-21-2024 Corticotropin (P) [Mass/Vol] 8.1 pg/mL Normal 7.2-63.3 [facility] Comment on above: Order Comment: Speci men Type: BLOOD SPECIMENOrdering Facility: [facility] Address: [address] [place] [address] Result Comment: ACTH Reference Range: 7-10 am: 7.2 - 63.3 pg/mL Performed By: #### 2 141-0 ####[facility] LABCLIA [id number] [place] [address] [place] Basic metabolic 2000 panelon 11-21-2024 Anion gap [Moles/Vol] 13 mmol/L Normal 8-15 [facility] Comment on above: Order Comment: Speci men Type: BLOOD SPECIMENOrdering Facility: [facility] Address: [address] [place] [address] Performed By: #### 2 143-6, 55331-4 ####[facility] LABCLIA [id number] [place] [address] [place] Calcium [Mass/Vol] 9.5 mg/dL Normal 8.5-10.2 [facility] Comment on above: Order Comment: Speci men Type: BLOOD SPECIMENOrdering Facility: [facility] Address: [address] [place] [address] Performed By: #### 2 143-6, 66905-1 ####[facility] LABCLIA [id number] [place] [address] [place] Chloride [Moles/Vol] 94 mmol/L Low 98-107 [facility] Comment on above: Order Comment: Speci men Type: BLOOD SPECIMENOrdering Facility: [facility] Address: [address] [place] [address] Performed By: #### 2 143-6, 40236-1 ####[facility] LABCLIA [id number] [facility] [address] [address] [place] CO2 [Moles/Vol] 26 mmol/L Normal 22-30 [facility] Comment on above: Order Comment: Speci men Type: BLOOD SPECIMENOrdering Facility: [facility] Address: [address] [place], [place] [address] Performed By: #### 2 143-6, 61481-7 ####[facility] LABIA [id number] [address] [address] [place] Creatinine [Mass/Vol] 0.57 mg/dL Low 0.58-0.96 [facility] Comment on above: Order Comment: Speci men Type: BLOOD SPECIMENOrdering Facility: [facility] Address: [address] [place] [address] Performed By: #### 2 143-6, 89341-5 ####[facility] [id number] [place] [address] [place] Creatinine and Glomerular filtration rate.predicted panel (S/P/Bld) 105 mL/min/1.73m??? Normal >=60 [facility] Comment on above: Order Comment: Specdelfino men Type: BLOOD SPECIMENOrdering Facility: [facility] Address: [address] [place] [address] Result Comment: Yesenia mated Glomerular Filtration Rate [...] actual GFR. Performed By: #### 2 143-6, 01514-3 ####[facility] LABIA [id number] [address] [address] [place] Glucose [Mass/Vol] 130 mg/dL High 74-99 [facility] Comment on above: Order Comment: Maurilio men Type: BLOOD SPECIMENOrdering Facility: [facility] Address: [address] [place] [address] Result Comment: The [place] Diabetes Association (ADA) provides guidance for cutoff [...] Standards of Medical Care in Diabetes 2016, [place] [employer]. Diabetes Care. 2016.39(Suppl 1). Performed By: #### 2 143-6, 07120-4 ####[facility] LABCLIA [id number] [place] [address] [place] Potassium [Moles/Vol] 3.9 mmol/L Normal 3.7-5.1 [facility] Comment on above: Order Comment: Speci men Type: BLOOD SPECIMENOrdering Facility: [facility] Address: [address] [place] [address] Performed By: #### 2 143-, 14429-7 ####[facility] LABCLIA [id number] [place] [address] [place] Sodium [Moles/Vol] 133 mmol/L Low 136-144 [facility] Comment on above: Order Comment: Speci men Type: BLOOD SPECIMENOrdering Facility: [facility] Address: [address] [place] [address] Performed By: #### 2 143-6, 95950-0 ####[facility] LABCLIA [id number] [place] [id number] [place] Urea nitrogen [Mass/Vol] 11 mg/dL Normal 7-21 [facility] Comment on above: Order Comment: Speci men Type: BLOOD SPECIMENOrdering Facility: [facility] Address: [address] [place] [address] Performed By: #### 2 143-6, 60332-8 ####[facility] LABCLIA [id number] [place] [address] [place] CBC panel Auto (Bld)on 11-21 Erythrocyte distribution width (RBC) [Ratio] 13.7 % Normal 11.5-15.0 [facility] Comment on above: Order Comment: Speci men Type: BLOOD SPECIMENOrdering Facility: [facility] Address: [address] [place] [address] Performed By: #### 5 8410-2 ####[facility] LABIA [id number] [place] [address] [place] Hematocrit (Bld) [Volume fraction] 39.5 % Normal 36.0-46.0 [facility] Comment on above: Order Comment: Speci men Type: BLOOD SPECIMENOrdering Facility: [facility] Address: [address] [place] [address] Performed By: #### 5 8410-2 ####[facility] LABIA [id number] [address] [place] Hemoglobin (Bld) [Mass/Vol] 13.7 g/dL Normal 11.5-15.5 [facility] Comment on above: Order Comment: Speci men Type: BLOOD SPECIMENOrdering Facility: [facility] Address: [address] [place] [address] Performed By: #### 5 8410-2 ####[facility] LABIA [id number] [place] [address] [place] MCH (RBC) [Entitic mass] 30.5 pg Normal 26.0-34.0 [facility] Comment on above: Order Comment: Speci men Type: BLOOD SPECIMENOrdering Facility: [facility] Address: [address] [place] [address] Performed By: #### 5 8410-2 ####[facility] LABIA [id number] [place] [address] [place] MCHC (RBC) [Mass/Vol] 34.7 g/dL Normal 30.5-36.0 [facility] Comment on above: Order Comment: Speci men Type: BLOOD SPECIMENOrdering Facility: [facility] Address: [address] [place] [address] Performed By: #### 5 8410-2 ####[facility] LABCLIA [id number] [place] [address] [place] MCV (RBC) [Entitic vol] 88.0 fL Normal 80.0-100.0 [facility] Comment on above: Order Comment: Speci men Type: BLOOD SPECIMENOrdering Facility: [facility] Address: [address] [place] [address] Performed By: #### 5 8410-2 ####[facility] LABIA [id number] [place] [address] [place] Nucleated RBC (Bld) [#/Vol] 10*3/uL Normal <0.01 [facility] Comment on above: Order Comment: Speci men Type: BLOOD SPECIMENOrdering Facility: [facility] Address: [address] [place] [address] Performed By: #### 5 8410-2 ####[facility] LABIA [id number] [place] [address] [place] Platelet mean volume (Bld) [Entitic vol] 9.6 fL Normal 9.0-12.7 [facility] Comment on above: Order Comment: Speci men Type: BLOOD SPECIMENOrdering Facility: [facility] Address: [address] [place] [address] Performed By: #### 5 8410-2 ####[facility] LABIA [id number] [place] [address] [place] Platelets (Bld) [#/Vol] 280 10*3/uL Normal 150-400 [facility] Comment on above: Order Comment: Speci men Type: BLOOD SPECIMENOrdering Facility: [facility] Address: [address] [place] [address] Performed By: #### 5 8410-2 ####[facility] LABCLIA [id number] [place] [id number] [place] RBC (Bld) [#/Vol] 4.49 10*6/uL Normal 3.90-5.20 [facility] Comment on above: Order Comment: Speci men Type: BLOOD SPECIMENOrdering Facility: [facility] Address: [address] [place] [address] Performed By: #### 5 8410-2 ####[facility] LABIA [id number] [place] [address] [place] WBC (Bld) [#/Vol] 10.34 10*3/uL Normal 3.70-11.00 [facility] Comment on above: Order Comment: Speci men Type: BLOOD SPECIMENOrdering Facility: [facility] Address: [address] [place] [address] Performed By: #### 5 8410-2 ####[facility] LABIA [id number] [address] [place] Cortdu SerPl-mCncon 11-22-19 25 Cortisol [Mass/Vol] 14.2 ug/dL Normal 4.8-19.5 [facility] Comment on above: Order Comment: Speci men Type: BLOOD SPECIMENOrdering Facility: [facility] Address: [address] [place] [address] Result Comment: Prov ided reference range is from 6-10 AM sample collection time. Cortisol Reference Range: 6-10 AM = 4.8-19.5 ug/dL, 4-8 PM = 2.5-11.9 ug/dL Performed By: #### 2 143-6, 36795-7 ####[facility] LABIA [id number] [place] [id number] [place] ANES POSTPROC EVALon 025 ANES POSTPROC EVAL HNO ID: [id number] Author: DOROTEO ANGULO DO Service: ? Author Type: Anesthesiologist Type: Anesthesia Postprocedure Evaluation Filed: 11/20/2024 18:21 Note Text: POST ANESTHESIA EVALUATION NOTE : 1965 Procedure Summary Date: 11/20/24 Room / Location: [address] [facility] Anesthesia Start: 1316 Anesthesia Stop: [...] November 20, 2024 TIME: 6:21 PM CSN: [id number] Normal [facility] ANES PRE-OPon 11-20-2024 ANES PRE-OP HNO ID: [id number] Author: BRENDA TARIQ DO Service: ? Author Type: Physician Type: Anesthesia Preprocedure Evaluation Filed: 11/20/2024 12:28 Note Text: ANESTHESIOLOGY DAY OF SURGERY NOTE : 1965 Procedure Information Date/Time: 11/20/24 1241 Procedure: LAPAROSCOPIC ADRENALECTOMY (Right: Abdomen) [address] Surgeons: John Bradley MD Estimated body [...] and consent discussed: yes. Patient / Responsible Green Party agrees to proceed: yes Patient / Surrogate [...] November 20, 2024 TIME: 11:14 AM CSN: [id number] Normal [facility] BRIEF OP NOTon 11-20-2024 BRIEF OP NOT HNO ID: [id number] Author: ALBER JAMIL MD Service: Endocrine Surgery Author Type: Physician Type: Brief Op Note Filed: 11/20/2024 16:50 Note Text: Brief Operative Note Patient Name: Violet Chin LOG ID: [id number] Surgery/Procedure Date: 11/20/2024 Surgeon(s)/Proceduralist( s) and Customer Service Consultant(s): Surgeons and Role: * John Bradley MD [...] MD DATE: 11/20/24 TIME: 4:49 PM Normal [facility] CBC W Auto Differential pane l (Bld)on 11-20-2024 Basophils (Bld) [#/Vol] 0.07 10*3/uL Normal <0.11 [facility] Comment on above: Order Comment: Speci men Type: BLOOD SPECIMENOrdering Facility: [facility] Address: [address] [place] [address] Performed By: #### 5 7021-8 ####[facility] LABCLIA [id number] [place] [address] [place] Basophils/100 WBC (Bld) 0.4 % Normal [facility] Comment on above: Order Comment: Speci men Type: BLOOD SPECIMENOrdering Facility: [facility] Address: [address] [place] [address] Performed By: #### 5 7021-8 ####[facility] LABCLIA [id number] [address], [place] [address] [place] Differential cell count method Nom (Bld) Auto Normal [facility] Comment on above: Order Comment: Speci men Type: BLOOD SPECIMENOrdering Facility: [facility] Address: [address] [place] [address] Performed By: #### 5 7021-8 ####[facility] LABCLIA [id number] [place] [address] [place] Eosinophils (Bld) [#/Vol] 0.10 10*3/uL Normal <0.46 [facility] Comment on above: Order Comment: Speci men Type: BLOOD SPECIMENOrdering Facility: [facility] Address: [address] [place] [address] Performed By: #### 5 7021-8 ####[facility] LABCLIA [id number] [place] [address] [place] Eosinophils/100 WBC (Bld) 0.6 % Normal [facility] Comment on above: Order Comment: Speci men Type: BLOOD SPECIMENOrdering Facility: [facility] Address: [address] [place] [address] Performed By: #### 5 7021-8 ####[facility] LABCLIA [id number] [place] [address] [place] Erythrocyte distribution width (RBC) [Ratio] 13.7 % Normal 11.5-15.0 [facility] Comment on above: Order Comment: Speci men Type: BLOOD SPECIMENOrdering Facility: [facility] Address: [address] [place] [address] Performed By: #### 5 7021-8 ####[facility] LABIA [id number] [place] [address] [place] Hematocrit (Bld) [Volume fraction] 38.6 % Normal 36.0-46.0 [facility] Comment on above: Order Comment: Speci men Type: BLOOD SPECIMENOrdering Facility: [facility] Address: [address] [place] [address] Performed By: #### 5 7021-8 ####[facility] LABIA [id number] [place] [address] [place] Hemoglobin (Bld) [Mass/Vol] 13.0 g/dL Normal 11.5-15.5 [facility] Comment on above: Order Comment: Speci men Type: BLOOD SPECIMENOrdering Facility: [facility] Address: [address] [place] [address] Performed By: #### 5 7021-8 ####[facility] LABIA [id number] [place] [address] [place] Immature granulocytes (Bld) [#/Vol] 0.12 10*3/uL High <0.10 [facility] Comment on above: Order Comment: Speci men Type: BLOOD SPECIMENOrdering Facility: [facility] Address: [address] [place] [address] Performed By: #### 5 7021-8 ####[facility] LABIA [id number] [place] [address] [place] Immature granulocytes/100 WBC (Bld) 0.7 % Normal [facility] Comment on above: Order Comment: Speci men Type: BLOOD SPECIMENOrdering Facility: [facility] Address: [address] [place] [address] Performed By: #### 5 7021-8 ####[facility] LABCLIA [id number] [place] [address] [place] Lymphocytes (Bld) [#/Vol] 2.11 10*3/uL Normal 1.00-4.00 [facility] Comment on above: Order Comment: Speci men Type: BLOOD SPECIMENOrdering Facility: [facility] Address: [address] [place] [address] Performed By: #### 5 7021-8 ####[facility] LABCLIA [id number] [place] [address] [place] Lymphocytes/100 WBC (Bld) 12.5 % Normal [facility] Comment on above: Order Comment: Speci men Type: BLOOD SPECIMENOrdering Facility: [facility] Address: [address] [place] [address] Performed By: #### 5 7021-8 ####[facility] LABCLIA [id number] [place] [address] [place] MCH (RBC) [Entitic mass] 30.4 pg Normal 26.0-34.0 [facility] Comment on above: Order Comment: Speci men Type: BLOOD SPECIMENOrdering Facility: [facility] Address: [address] [place] [address] Performed By: #### 5 7021-8 ####[facility] LABCLIA [id number] [place] [address] [place] MCHC (RBC) [Mass/Vol] 33.7 g/dL Normal 30.5-36.0 [facility] Comment on above: Order Comment: Speci men Type: BLOOD SPECIMENOrdering Facility: [facility] Address: [address] [place] [address] Performed By: #### 5 7021-8 ####[facility] LABCLIA [id number] [address], [place] [address] [place] MCV (RBC) [Entitic vol] 90.2 fL Normal 80.0-100.0 [facility] Comment on above: Order Comment: Speci men Type: BLOOD SPECIMENOrdering Facility: [facility] Address: [address] [place] [address] Performed By: #### 5 7021-8 ####[facility] LABCLIA [id number] [address], [place] [address] [place] Monocytes (Bld) [#/Vol] 0.70 10*3/uL Normal <0.87 [facility] Comment on above: Order Comment: Speci men Type: BLOOD SPECIMENOrdering Facility: [facility] Address: [address] [place] [address] Performed By: #### 5 7021-8 ####[facility] LABCLIA [id number] [address], [place] [address] [place] Monocytes/100 WBC (Bld) 4.1 % Normal [facility] Comment on above: Order Comment: Speci men Type: BLOOD SPECIMENOrdering Facility: [facility] Address: [address] [place] [address] Performed By: #### 5 7021-8 ####[facility] LABCLIA [id number] [place] [id number] [place] Neutrophils (Bld) [#/Vol] 13.80 10*3/uL High 1.45-7.50 [facility] Comment on above: Order Comment: Speci men Type: BLOOD SPECIMENOrdering Facility: [facility] Address: [address] [place] [address] Performed By: #### 5 7021-8 ####[facility] LABCLIA [id number] [address], [facility] [place] Neutrophils/100 WBC (Bld) 81.7 % Normal [facility] Comment on above: Order Comment: Speci men Type: BLOOD SPECIMENOrdering Facility: [facility] Address: [address] [place] [address] Performed By: #### 5 7021-8 ####[facility] LABCLIA [id number] [facility] [place] [place] [address] [place] Nucleated RBC (Bld) [#/Vol] 10*3/uL Normal <0.01 [facility] Comment on above: Order Comment: Speci men Type: BLOOD SPECIMENOrdering Facility: [facility] Address: [address] [place] [address] Performed By: #### 5 7021-8 ####[facility] LABCLIA [id number] [place] [address] [place] Nucleated RBC/100 WBC (Bld) [Ratio] 0.0 /100 WBC Normal [facility] Comment on above: Order Comment: Speci men Type: BLOOD SPECIMENOrdering Facility: [facility] Address: [address] [place] [address] Performed By: #### 5 7021-8 ####[facility] LABCLIA [id number] [place] [address] [place] Platelet mean volume (Bld) [Entitic vol] 9.7 fL Normal 9.0-12.7 [facility] Comment on above: Order Comment: Speci men Type: BLOOD SPECIMENOrdering Facility: [facility] Address: [address] [place] [address] Performed By: #### 5 7021-8 ####[facility] LABCLIA [id number] [place] [address] [place] Platelets (Bld) [#/Vol] 286 10*3/uL Normal 150-400 [facility] Comment on above: Order Comment: Speci men Type: BLOOD SPECIMENOrdering Facility: [facility] Address: [address] [place] [address] Performed By: #### 5 7021-8 ####[facility] LABIA [id number] [place] [address] [place] RBC (Bld) [#/Vol] 4.28 10*6/uL Normal 3.90-5.20 [facility] Comment on above: Order Comment: Speci men Type: BLOOD SPECIMENOrdering Facility: [facility] Address: [address] [place] [address] Performed By: #### 5 7021-8 ####[facility] LABIA [id number] [place] [address] [place] WBC (Bld) [#/Vol] 16.90 10*3/uL High 3.70-11.00 [facility] Comment on above: Order Comment: Speci men Type: BLOOD SPECIMENOrdering Facility: [facility] Address: [address] [place] [address] Performed By: #### 5 7021-8 ####[facility] [id number] [address] [place] OPERATIVE NOon 11-20-2024 OPERATIVE NO HNO ID: [id number] Author: JOHN BRADLEY MD Service: Endocrine Surgery Author Type: Physician Type: Operative Report Filed: 11/29/2024 11:43 Note Text: OPERATIVE/PROCEDURE REPORT LOG ID: [id number] SURGERY/PROCEDURE DATE: 11/20/2024 INCISION/PROCEDURE START TIME: 1:50 PM INCISION CLOSE/PROCEDURE END TIME: 4:11 PM SURGEON(S)/PROCEDURALIST( S) AND INSURANCE VERIFICATION SPECIALIST(S): Surgeons and Role: * John Bradley MD [...] operating table. General anesthesia was achieved. A [place] and Saenz catheter were placed. The patient [...] Jamil was asked to serve as first calender worker. During the course of the dissection, the first calender worker assisted with thyroid mobilization, vascular isolation, and [...] neuroblastic tumor (see comment regarding subtype). Normal [facility] Pathology biopsy report Sheng (Tiss)on 11-20-2024 AP DISCLAIMER Normal [facility] Comment on above: Order Comment: Speci men Type: TISSUE SPECIMENOrdering Facility: [facility] Address: [address] [place] [address] Result Comment: Blanca sabillon Developed Test (LDT) Disclaimer: Performance characteristics of immunohistochemical, immunofluorescent, and chromogenic in-situ hybridization tests have been determined by the performing laboratory within [facility]'s [facility] Pathology and Laboratory Medicine Department ([facility], [facility], [facility], [facility], [facility], [facility], or [facility]) in a manner consistent with CLIA requirements. One or more of these tests may not have been cleared or approved by the FDA. [facility] is regulated under CLIA as qualified to perform high-complexity testing. These tests are used for clinical purposes. These should not be regarded as investigational or for research. Positive and negative controls stain appropriately. Performed By: #### 6 6121-5 ####[facility] LABCLIA [id number] [place] [address] [place] CASE REPORT Normal [facility] Comment on above: Order Comment: Speci men Type: TISSUE SPECIMENOrdering Facility: [facility] Address: [address] [place] [address] Result Comment: Surg ica Pathology Report Case: [id number] Authorizing Provider: John Bradley MD Collected: 11/20/2024 03:59 PM Ordering Location: Admitting Received: 11/20/2024 04:32 PM Pathologist: Iván Montero MD Specimen: Adrenal Gland, Right, Resection Performed By: #### 6 6121-5 ####[facility] [id number] [address] STATES OF [facility] CLINICAL HISTORY Normal [facility] Comment on above: Order Comment: Speci men Type: TISSUE SPECIMENOrdering Facility: [facility] Address: [address] [place] [address] Result Comment: 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 Normal [facility] Comment on above: Order Comment: Speci men Type: TISSUE SPECIMENOrdering Facility: [facility] Address: [address] [place] [address] Performed By: #### 6 6121-5 ####[facility] [id number] [address] FINAL DIAGNOSIS Normal [facility] Comment on above: Order Comment: Speci men Type: TISSUE SPECIMENOrdering Facility: [facility] Address: [address] [place] [address] Result Comment: A. 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 - Extra-adrenal invasion is present. 11/26/2024 at 0949 EDT Performed By: #### 6 6121-5 ####[facility] LABCLIA [id number] [address] OF [facility] FINAL PERFORMING LAB Normal [facility] Comment on above: Order Comment: Speci men Type: TISSUE SPECIMENOrdering Facility: [facility] Address: [address] [place] [address] Result Comment: Diag nostic interpretation performed at: [facility], [address] [place] [address] CLIA# [id number] Sales And Marketing Director: Terrell Gary MD Performed By: #### 6 6121-5 ####[facility] LABCLIA [id number] [address] [place] GROSS DESCRIPTION Normal [facility] Comment on above: Order Comment: Speci men Type: TISSUE SPECIMENOrdering Facility: [facility] Address: [address] [place] [address] Result Comment: A. A drenal Gland, Right, [...] to the capsule. A photograph is obtained. [address] sections are submitted as follows: A1 periphery of mass with possible extension beyond capsule (see photograph) A2 senior human resources representative section of mass with necrosis A3-A4 mass with adjacent normal and black inked capsular soft tissue margin A5 additional section of mass with black inked capsular soft tissue margin A6 uninvolved adrenal gland [facility] 11/21/24 10:03 AM Gross examination performed at [facility], [address] [place] [address] Performed By: #### 6 6121-5 ####[facility] LABCLIA [id number] [address] CHEST W IVCONon CT CHEST W IVCON * * *Final Report* * * DATE OF EXAM: Nov 15 2024 1:32PM [facility] 0539 - CT CHEST W IVCON / [...] obtained in 12 months --END OF FINDING-- Title Checker: ALIZA Transcribe Date/Time: Nov 19 2024 11:22A Dictated by : SHERLEY WATSON MD This examination was interpreted and the report reviewed and electronically signed by: SHERLEY WATSON MD on Nov 19 2024 11:30AM EST [id number] ACTIONABLE Invalid Interpretation Code [facility] SPIROMETRY WITH DILATOR IF O BSTRUCTEDon 11-15-2024 SPIROMETRY WITH DILATOR IF OBSTRUCTED [facility] [address] [facility] [place] [address] Test Date: 2024-11-15 Pat Name: VIOLET CHIN Department: Room: Gender: Female Partnership Development Manager: : 1965 Requested By: Order Number: [id number] Reading MD: Natasha Recinos MD Interpretive Statements Current ATS/ERS acceptability and repeatability standards for spirometry met. Start of test and EOFE criteria met.//LC IMPRESSION: Spirometry is normal. Electronically Signed On 11-17-2024 18:17:37 EDT by Natasha Recinos MD ID: [id number] Name: VIOLET CHIN Race: White Ht: 62.80 [...] FIF50 3.52 FEF50/FIF50 0.75 90-100 FIVC 3.35 TGW62-85 1.80 1.16 2.25 3.70 79 -0.62 ExpiredTime [...] 80 % FEV1/FVC_LLN (%) : 68 % RJR26_XGE (L/S) : 5.20 L/S OFC15_LCX (L/S) : 0.60 L/S BQB18_EXIW (L/S) : 0.64 L/S UWE70_EBM (L/S) : 0.26 L/S IWT35_ZWM (L/S) : 1.48 L/S LRG55-02%_PRE (L/S) : 1.80 L/S NPO32-76%_PRED (L/S) : 2.25 L/S WFM58-65%_LLN (L/S) : 1.16 L/S PEF_PRE (L/S) : 6.66 L/S PEFMAX_LLN (L/S) : 4.50 L/S PEFMAX_ULN (L/S) : 7.80 L/S FET_PRE (S) : 10.00 S Normal [facility] Basic metabolic 2000 panelon 11-08-2024 Anion gap [Moles/Vol] 13 mmol/L Normal 8-15 [facility] Comment on above: Order Comment: Speci men Type: BLOOD SPECIMENOrdering Facility: [facility] Address: [address] [place] [address] Performed By: #### 2 4321-2 ####[facility] LABIA [id number] [place] [address] [place] Calcium [Mass/Vol] 9.5 mg/dL Normal 8.5-10.2 [facility] Comment on above: Order Comment: Speci men Type: BLOOD SPECIMENOrdering Facility: [facility] Address: [address] [place] [address] Performed By: #### 2 4321-2 ####[facility] LABCLIA [id number] [place] [address] [place] Chloride [Moles/Vol] 95 mmol/L Low 98-107 [facility] Comment on above: Order Comment: Speci men Type: BLOOD SPECIMENOrdering Facility: [facility] Address: [address] [place] [address] Performed By: #### 2 4321-2 ####[facility] LABCLIA [id number] [place] [address] [place] CO2 [Moles/Vol] 23 mmol/L Normal 22-30 [facility] Comment on above: Order Comment: Speci men Type: BLOOD SPECIMENOrdering Facility: [facility] Address: [address] [place] [address] Performed By: #### 2 4321-2 ####[facility] LABCLIA [id number] [place] [id number] [place] Creatinine [Mass/Vol] 0.69 mg/dL Normal 0.58-0.96 [facility] Comment on above: Order Comment: Speci men Type: BLOOD SPECIMENOrdering Facility: [facility] Address: [address] [place] [address] Performed By: #### 2 4321-2 ####[facility] LABCLIA [id number] [place] [address] [place] Creatinine and Glomerular filtration rate.predicted panel (S/P/Bld) 100 mL/min/1.73m??? Normal >=60 [facility] Comment on above: Order Comment: Speci men Type: BLOOD SPECIMENOrdering Facility: [facility] Address: [address] [place] [address] Result Comment: Yesenia mated Glomerular Filtration Rate [...] actual GFR. Performed By: #### 2 4321-2 ####[facility] LABCLIA [id number] [place] [id number] [place] Glucose [Mass/Vol] 89 mg/dL Normal 74-99 [facility] Comment on above: Order Comment: Speci men Type: BLOOD SPECIMENOrdering Facility: [facility] Address: [address] [place] [address] Result Comment: The [place] Diabetes Association (ADA) provides guidance for cutoff [...] Standards of Medical Care in Diabetes 2016, [place] Diabetes Association. Diabetes Care. 2016.39(Suppl 1). Performed By: #### 2 4321-2 ####[facility] LABCLIA [id number] [place] [address] [place] Potassium [Moles/Vol] 4.2 mmol/L Normal 3.7-5.1 [facility] Comment on above: Order Comment: Speci men Type: BLOOD SPECIMENOrdering Facility: [facility] Address: [address] [place] [address] Performed By: #### 2 4321-2 ####[facility] LABIA [id number] [place] [address] [place] Sodium [Moles/Vol] 131 mmol/L Low 136-144 [facility] Comment on above: Order Comment: Speci men Type: BLOOD SPECIMENOrdering Facility: [facility] Address: [address] [place] [address] Performed By: #### 2 4321-2 ####[facility] LABCLIA [id number] [place] [id number] [place] Urea nitrogen [Mass/Vol] 17 mg/dL Normal 7-21 [facility] Comment on above: Order Comment: Speci men Type: BLOOD SPECIMENOrdering Facility: [facility] Address: [address] [place] [address] Performed By: #### 2 4321-2 ####[facility] LABIA [id number] [place] [address] [place] CBC W Auto Differential pane l (Bld)on 11-08-2024 Basophils (Bld) [#/Vol] 0.05 10*3/uL Normal <0.11 [facility] Comment on above: Order Comment: Speci men Type: BLOOD SPECIMENOrdering Facility: [facility] Address: [address] [place] [address] Performed By: #### 5 7021-8 ####[facility] LABCLIA [id number] [address], [place] [address] [place] Basophils/100 WBC (Bld) 0.9 % Normal [facility] Comment on above: Order Comment: Speci men Type: BLOOD SPECIMENOrdering Facility: [facility] Address: [address] [place] [address] Performed By: #### 5 7021-8 ####[facility] LABCLIA [id number] [place] [address] [place] Differential cell count method Nom (Bld) Auto Normal [facility] Comment on above: Order Comment: Speci men Type: BLOOD SPECIMENOrdering Facility: [facility] Address: [address] [place] [address] Performed By: #### 5 7021-8 ####[facility] LABCLIA [id number] [place] [address] [place] Eosinophils (Bld) [#/Vol] 0.05 10*3/uL Normal <0.46 [facility] Comment on above: Order Comment: Speci men Type: BLOOD SPECIMENOrdering Facility: [facility] Address: [address] [place] [address] Performed By: #### 5 7021-8 ####[facility] LABCLIA [id number] [place] [address] [place] Eosinophils/100 WBC (Bld) 0.9 % Normal [facility] Comment on above: Order Comment: Speci men Type: BLOOD SPECIMENOrdering Facility: [facility] Address: [address] [place] [address] Performed By: #### 5 7021-8 ####[facility] LABCLIA [id number] [place] [address] [place] Erythrocyte distribution width (RBC) [Ratio] 13.7 % Normal 11.5-15.0 [facility] Comment on above: Order Comment: Speci men Type: BLOOD SPECIMENOrdering Facility: [facility] Address: [address] [place] [address] Performed By: #### 5 7021-8 ####[facility] LABCLIA [id number] [place] [address] [place] Hematocrit (Bld) [Volume fraction] 40.2 % Normal 36.0-46.0 [facility] Comment on above: Order Comment: Speci men Type: BLOOD SPECIMENOrdering Facility: [facility] Address: [address] [place] [address] Performed By: #### 5 7021-8 ####[facility] LABCLIA [id number] [place] [address] [place] Hemoglobin (Bld) [Mass/Vol] 13.5 g/dL Normal 11.5-15.5 [facility] Comment on above: Order Comment: Speci men Type: BLOOD SPECIMENOrdering Facility: [facility] Address: [address] [place] [address] Performed By: #### 5 7021-8 ####[facility] LABCLIA [id number] [place] [id number] [place] Immature granulocytes (Bld) [#/Vol] 10*3/uL Normal <0.10 [facility] Comment on above: Order Comment: Speci men Type: BLOOD SPECIMENOrdering Facility: [facility] Address: [address] [place] [address] Performed By: #### 5 7021-8 ####[facility] LABCLIA [id number] [place] [address] [place] Immature granulocytes/100 WBC (Bld) 0.2 % Normal [facility] Comment on above: Order Comment: Speci men Type: BLOOD SPECIMENOrdering Facility: [facility] Address: [address] [place] [address] Performed By: #### 5 7021-8 ####[facility] LABCLIA [id number] [place] [address] [place] Lymphocytes (Bld) [#/Vol] 1.68 10*3/uL Normal 1.00-4.00 [facility] Comment on above: Order Comment: Speci men Type: BLOOD SPECIMENOrdering Facility: [facility] Address: [address] [place] [address] Performed By: #### 5 7021-8 ####[facility] LABIA [id number] [place] [address] [place] Lymphocytes/100 WBC (Bld) 29.3 % Normal [facility] Comment on above: Order Comment: Speci men Type: BLOOD SPECIMENOrdering Facility: [facility] Address: [address] [place] [address] Performed By: #### 5 7021-8 ####[facility] LABIA [id number] [place] [address] [place] MCH (RBC) [Entitic mass] 30.1 pg Normal 26.0-34.0 [facility] Comment on above: Order Comment: Speci men Type: BLOOD SPECIMENOrdering Facility: [facility] Address: [address] [place] [address] Performed By: #### 5 7021-8 ####[facility] LABCLIA [id number] [place] [address] [place] MCHC (RBC) [Mass/Vol] 33.6 g/dL Normal 30.5-36.0 [facility] Comment on above: Order Comment: Speci men Type: BLOOD SPECIMENOrdering Facility: [facility] Address: [address] [place] [address] Performed By: #### 5 7021-8 ####[facility] LABIA [id number] [place] [address] [place] MCV (RBC) [Entitic vol] 89.5 fL Normal 80.0-100.0 [facility] Comment on above: Order Comment: Speci men Type: BLOOD SPECIMENOrdering Facility: [facility] Address: [address] [place] [address] Performed By: #### 5 7021-8 ####[facility] LABIA [id number] [place] [address] [place] Monocytes (Bld) [#/Vol] 0.42 10*3/uL Normal <0.87 [facility] Comment on above: Order Comment: Speci men Type: BLOOD SPECIMENOrdering Facility: [facility] Address: [address] [place] [address] Performed By: #### 5 7021-8 ####[facility] LABIA [id number] [place] [address] [place] Monocytes/100 WBC (Bld) 7.3 % Normal [facility] Comment on above: Order Comment: Speci men Type: BLOOD SPECIMENOrdering Facility: [facility] Address: [address] [place] [address] Performed By: #### 5 7021-8 ####[facility] LABIA [id number] [place] [address] [place] Neutrophils (Bld) [#/Vol] 3.53 10*3/uL Normal 1.45-7.50 [facility] Comment on above: Order Comment: Speci men Type: BLOOD SPECIMENOrdering Facility: [facility] Address: [address] [place] [address] Performed By: #### 5 7021-8 ####[facility] LABCLIA [id number] [place] [address] [place] Neutrophils/100 WBC (Bld) 61.4 % Normal [facility] Comment on above: Order Comment: Speci men Type: BLOOD SPECIMENOrdering Facility: [facility] Address: [address] [place] [address] Performed By: #### 5 7021-8 ####[facility] LABCLIA [id number] [place] [address] [place] Nucleated RBC (Bld) [#/Vol] 10*3/uL Normal <0.01 [facility] Comment on above: Order Comment: Speci men Type: BLOOD SPECIMENOrdering Facility: [facility] Address: [address] [place] [address] Performed By: #### 5 7021-8 ####[facility] LABCLIA [id number] [place] [address] [place] Nucleated RBC/100 WBC (Bld) [Ratio] 0.0 /100 WBC Normal [facility] Comment on above: Order Comment: Speci men Type: BLOOD SPECIMENOrdering Facility: [facility] Address: [address] [place] [address] Performed By: #### 5 7021-8 ####[facility] LABCLIA [id number] [place] [address] [place] Platelet mean volume (Bld) [Entitic vol] 11.1 fL Normal 9.0-12.7 [facility] Comment on above: Order Comment: Speci men Type: BLOOD SPECIMENOrdering Facility: [facility] Address: [address] [place] [address] Performed By: #### 5 7021-8 ####[facility] LABCLIA [id number] [place] [address] [place] Platelets (Bld) [#/Vol] 218 10*3/uL Normal 150-400 [facility] Comment on above: Order Comment: Speci men Type: BLOOD SPECIMENOrdering Facility: [facility] Address: [address] [place] [address] Performed By: #### 5 7021-8 ####[facility] LABCLIA [id number] [place] [address] [place] RBC (Bld) [#/Vol] 4.49 10*6/uL Normal 3.90-5.20 [facility] Comment on above: Order Comment: Speci men Type: BLOOD SPECIMENOrdering Facility: [facility] Address: [address] [place] [address] Performed By: #### 5 7021-8 ####[facility] LABCLIA [id number] [place] [address] [place] WBC (Bld) [#/Vol] 5.74 10*3/uL Normal 3.70-11.00 [facility] Comment on above: Order Comment: Speci men Type: BLOOD SPECIMENOrdering Facility: [facility] Address: [address] [place] [address] Performed By: #### 5 7021-8 ####[facility] LABCLIA [id number] [place] [address] [place] CONFIRM BLOOD TYPEon 025 ABO O Normal [facility] Comment on above: Order Comment: Speci men Type: BLOOD SPECIMENOrdering Facility: [facility] Address: [address] [place] [address] Performed By: #### C ONABO ####[facility] BLOOD BANKCLIA [id number] [place] [address] [place] Rh Nom (Bld) Positive Normal [facility] Comment on above: Order Comment: Speci men Type: BLOOD SPECIMENOrdering Facility: [facility] Address: [address] [place] [address] Performed By: #### C ONABO ####[facility] BLOOD BANKIA [id number] [address] [id number] 11-08-2024 ECG01 Ventricular Rate : 7 0 BPM Atrial Rate : 70 BPM P-R Interval : 144 ms QRS Duration : 94 ms Q-T Interval : 412 ms QTC Calculation(Bazett) : 444 ms Calculated P Dexter : 9 degrees Calculated R Dexter : 67 degrees Calculated T Dexter : 5 degrees NORMAL SINUS RHYTHM NORMAL ECG Confirmed by MD DREW QARAB ([id number]) on 11/12/2024 6:45:45 PM NAME : VIOLET CHIN PID : [id number] : 1965 Gender : Female Race : ORD : Procedure Date : Nov 08 2024 15:22:37 Edit Date : Nov 12 2024 18:45:46 Diagnosis: NORMAL SINUS RHYTHM NORMAL ECG Confirmed by MD DREW QARAB ([id number]) on 11/12/2024 6:45:45 PM Test Reason : Location : 636 : [facility] Overread By : MD DREW QARAB Edited By : MD DREW QARAB Referred By : JOHN BRADLEY Acquired by : Kelly flores [facility] HISTORY PHYSICALon HISTORY PHYSICAL HNO ID: [id number] Author: GURVINDER GARCIA APRN.CNP Service: ? Author [...] 35 kg/m2 Non-male patient STOP-Bang Score: 3 KMO9SY5-MOSn Score: Age: <65 Sex: female CHF history: No Hypertension history: Yes Stroke/TIA/thromboembolis m history: No Vascular disease history: No Diabetes history: No WLM5CT6-VWIg Score: 2 ARISCAT Score: Age: 51-80 Preoperative [...] schedule, cancel, or change an appointment. Adults [phone] Pediatrics [phone] Should this patient be seen in a [...] COMPLAINT: Pre-op (more content not included)... [facility] DAYon 04- 04-2025 ABO O Normal [facility] Comment on above: Order Comment: Speci men Type: BLOOD SPECIMENOrdering Facility: [facility] Address: [address] [place] [address] Performed By: #### T SCR30 ####CC [facility]IN BLOOD BANKCLIA [id number] [address] OF [facility] Rh Nom (Bld) Positive Normal [facility] Comment on above: Order Comment: Speci men Type: BLOOD SPECIMENOrdering Facility: [facility] Address: [address] [place] [address] Performed By: #### T SCR30 ####CC MAIN BLOOD BANKCLIA [id number] [address] OF [facility] XR CHEST 2V FRONTAL/LATon XR CHEST 2V [...] tissues: Unremarkable. IMPRESSION: No acute radiographic abnormality. Title Checker: PSCB Transcribe Date/Time: Nov 08 2024 3:27P Dictated by : TERRELL PASTRANA MD This examination was interpreted and the report reviewed and electronically signed by: TERRELL PASTRANA MD on Nov 08 2024 3:27PM EST [id number] Normal [facility] XR Chest PA and Lateralon IMPRESSION: No acute radiographic abnormality. Title Checker: PSCB Transcribe Date/Time: Nov 08 2024 3:27P Dictated by : TERRELL PASTRANA MD This examination was interpreted and the report reviewed and electronically signed by: TERRELL PASTRANA MD on Nov 08 2024 3:27PM [facility] DIVISION OF RADIOLOGY * * *Final Report* [...] soft tissues: Unremarkable. DIVISION OF RADIOLOGY Provider, [facility] - 11/08/2024 * * *Final Report* * [...] Unremarkable. IMPRESSION IMPRESSION: No acute radiographic abnormality. Title Checker: PSCB Transcribe Date/Time: Nov 08 2024 3:27P Dictated by : TERRELL PASTRANA MD This examination was interpreted and the report reviewed and electronically signed by: TERRELL PASTRANA MD on Nov 08 2024 3:27PM [facility] Radiology Study observation (narrative) [facility] XR Chest PA and LateralOrder ed By: Ccf Provider on 11-08-2024 [facility] CNOVon 11-05-2024 CNOV Office Visit (ENSUMN ) ----- VIOLET CHIN ([id number]) 1965 F Date Time Provider Department 11/05/24 9:00 AM JOHN BRADLEY During your visit today, we recorded the following information about you: Pulse Blood pressure Weight Height 65/minute 165/88 86.1 kg 1.575 m Yadira Doll MA 11/05/2024 8:57 AM Signed Thank you for choosing the [facility] Department of Endocrinology, Diabetes and Metabolism. Did you know that you need to call 48 hours in advance of your scheduled visit, if you are unable to make your appointment? The Endocrinology and Metabolism Dora thanks you for your commitment, because patients not showing to their appointment results in a lost opportunity for patients to receive [facility] health care at the [facility]. To Cancel an appointment, please choose one of the following: - Call the Appointment Call Center at [phone] - From [facility], Go to Appointments - Cancel Appts If cancelling, consider your need to reschedule to prevent further delays in your care. To Schedule an appointment, please choose one of the following: - Call the Appointment Call Center at [phone] - From [facility], Go to Appointments - Request an Appt John Bradley MD 11/05/2024 9:37 AM Signed ENDOCRINE SURGERY NEW CONSULTATION NAME: Violet Chin CLINIC NO: [id number] : 1965 REFERRING PROVIDER: Nina Lerner MD [...] vol ug/L 170 Epinephrine, Ur ratio to SHEET MANUFACTURING SUPERVISOR 0 - 20 ug/g SHEET MANUFACTURING SUPERVISOR 6 Epinephrine, Ur 24hr 1 - 14 ug/d 7 Norepinephrine, Ur ratio to SHEET MANUFACTURING SUPERVISOR 0 - 45 ug/g SHEET MANUFACTURING SUPERVISOR 37 Norepinephrine, Ur 24hr 14 - 120 ug/d 39 Dopamine, Ur ratio to SHEET MANUFACTURING SUPERVISOR 0 - 250 ug/g SHEET MANUFACTURING SUPERVISOR 270 (H) Creatinine, Urine Per Volume mg/dL [...] Routing Code: (more content not included)... [facility] [facility] Telephone (SONIA) ----- VIOLET HCIN ([id number]) 1965 F Date Time Provider Department 10/31/24 JOHN BRADLEY During your visit today, we recorded the following information about you: Nalini Goode 10/31/2024 4:15 PM Signed 10/31/2024 INTAKE PENDING-LFT MSG ON VMX AND SENT [facility] ENDOCRINE SURGERY PATIENT WORKSHEET Initial Call Date: October 31, 2024 Reason for Consult/ Referral: Adrenal Mass PATIENT DEMOGRAPHICS Name: Violet Chin CCF#: [id number] : 1965 AGE: [age] year old Contact Numbers: Home: (home) Work: There is no work phone number on file. PATIENT PHYSICIAN INFORMATION Referring Doctor: Address: Phone: Business Banking Representative: Address: Phone: PCP: Erick Lemus [address] [place] [address] PAST TREATMENT Office notes: SEE [facility] Medications: NONE THAT APPLY Pre-Visit [...] Encounter Status:Closed by NALINI GOODE on 10/31/24 [facility] CNOVbrii 10-29-2024 CNOV Office Visit (ENWSTR ) ----- VIOLET CHIN ([id number]) 1965 F Date Time Provider Department 10/29/24 4:00 PM NINA LERNER During your visit today, we recorded the following information about you: Temperature Pulse Weight 98.8 degrees 64/minute 86.4 kg Nina Lerner MD 11/02/2024 12:13 AM Addendum [facility] Follow up note Patient referred by: Aissatou Mac APRN. 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 (more content not included)... Normal [facility] CATECHOLAMINES FRACTIONATED, URINE FREEon 10-28-2024 CATECHOLAMINES INTERPRETATION See Note Normal [facility] Comment on above: Order Comment: Speci men Type: URINE SPECIMENOrdering Facility: [facility] Address: [address] [place] [address] Result Comment: TEST INFORMATION: Catecholamines Fractionated, Urine [...] reference intervals for this test in the [facility] Test Directory ([place]). This test was developed and its performance characteristics determined by [employer]. It has not been cleared or approved by the [place] Food and Drug Administration. This test was performed in a CLIA certified laboratory and is intended for clinical purposes. Performed By: #### U RCAT2 ####[facility] LABORATORIESCLIA [id number] [place] [address] CREATININE, URINE PER 24H 1055 mg/d Normal 500-1400 [facility] Comment on above: Order Comment: Speci men Type: URINE SPECIMENOrdering Facility: [facility] Address: [address] [place] [address] Result Comment: Perf ormed By: [facility] [address] [place] [address] Sales And Marketing Director: Iván Mcgee MD, PhD [facility] Number: [id number] Performed By: #### U RCAT2 ####[facility]IESCLIA [id number] [place] [address] CREATININE, URINE PER VOLUME 63 mg/dL Normal [facility] Comment on above: Order Comment: Speci men Type: URINE SPECIMENOrdering Facility: [facility] Address: [address] [place] [address] Performed By: #### U RCAT2 ####[facility]ORATORIESCLIA [id number] [place] [address] DOPAMINE, UR 24HR 285 ug/d Normal 71-485 [facility] Comment on above: Order Comment: Speci men Type: URINE SPECIMENOrdering Facility: [facility] Address: [address] [place] [address] Result Comment: REFE RENCE INTERVAL: Dopamine, Urine - ug/d Access complete set of age- and/or gender-specific reference intervals for this test in the [facility] Test [facility] ([place]). Performed By: #### U RCAT2 ####[facility]IESCLIA [id number] [place] [address] DOPAMINE, UR PER VOL 170 ug/L Normal [facility] Comment on above: Order Comment: Speci men Type: URINE SPECIMENOrdering Facility: [facility] Address: [address] [place] [address] Performed By: #### U RCAT2 ####[facility]ORATORIESCLIA [id number] [place] [id number] DOPAMINE, UR RATIO TO SHEET MANUFACTURING SUPERVISOR 270 ug/g SHEET MANUFACTURING SUPERVISOR High 0-250 [facility] Comment on above: Order Comment: Speci men Type: URINE SPECIMENOrdering Facility: [facility] Address: [address] [place] [address] Performed By: #### U RCAT2 ####[facility]IESCLIA [id number] [place] [address] EPINEPHRINE, UR 24HR 7 ug/d Normal 1-14 [facility] Comment on above: Order Comment: Speci men Type: URINE SPECIMENOrdering Facility: [facility] Address: [address] [place] [address] Result Comment: REFE RENCE INTERVAL: Epinephrine, Urine - ug/d Access complete set of age- and/or gender-specific reference intervals for this test in the [facility] Test [facility] ([place]). Performed By: #### U RCAT2 ####[facility]IESCLIA [id number] [place] [address] EPINEPHRINE, UR PER VOL 4 ug/L Normal [facility] Comment on above: Order Comment: Speci men Type: URINE SPECIMENOrdering Facility: [facility] Address: [address] [place] [address] Performed By: #### U RCAT2 ####[facility]IESCLIA [id number] [place] [address] EPINEPHRINE, UR RATIO TO SHEET MANUFACTURING SUPERVISOR 6 ug/g SHEET MANUFACTURING SUPERVISOR Normal 0-20 [facility] Comment on above: Order Comment: Speci men Type: URINE SPECIMENOrdering Facility: [facility] Address: [address] [place] [address] Performed By: #### U RCAT2 ####[facility]IESCLIA [id number] [place] [address] HOURS COLLECTED 24 hr Normal [facility] Comment on above: Order Comment: Speci men Type: URINE SPECIMENOrdering Facility: [facility] Address: [address] [place] [address] Result Comment: Per 24h calculations are provided to aid interpretation for collections with a duration of 24 hours and an average daily urine volume. For specimens with notable deviations in collection time or volume, ratios of analytes to a corresponding urine creatinine concentration may assist in result interpretation. Performed By: #### U RCAT2 ####[facility]OR[facility]IESCLIA [id number] [place] [address] NOREPINEPHRINE, UR 24HR 39 ug/d Normal 14-120 [facility] Comment on above: Order Comment: Speci men Type: URINE SPECIMENOrdering Facility: [facility] Address: [address] [place] [address] Result Comment: REFE RENCE INTERVAL: Norepinephrine, Urine - ug/d Access complete set of age- and/or gender-specific reference intervals for this test in the [facility] Test Directory ([place]). Performed By: #### U RCAT2 ####[facility]IESCLIA [id number] [place] [address] NOREPINEPHRINE, UR PER VOL 23 ug/L Normal [facility] Comment on above: Order Comment: Speci men Type: URINE SPECIMENOrdering Facility: [facility] Address: [address] [place] [address] Performed By: #### U RCAT2 ####[facility]OR[facility]IESCLIA [id number] [place] [address] NOREPINEPHRINE, UR RATIO TO SHEET MANUFACTURING SUPERVISOR 37 ug/g SHEET MANUFACTURING SUPERVISOR Normal 0-45 [facility] Comment on above: Order Comment: Speci men Type: URINE SPECIMENOrdering Facility: [facility] Address: [address] [place] [address] Performed By: #### U RCAT2 ####[facility]IESCLIA [id number] [place] [address] TOTAL VOLUME 1675 mL Normal [facility] Comment on above: Order Comment: Speci men Type: URINE SPECIMENOrdering Facility: [facility] Address: [address] [place] [address] Performed By: #### U RCAT2 ####[facility]ORATORIESCLIA [id number] [place] [address] CREATININE, 24 HOUR URINEon 10-28-2024 Creatinine (24H U) [Mass/Time] 0.951 g/24 hr Normal 0.800-1.800 [facility] Comment on above: Order Comment: Speci men Type: URINE SPECIMENOrdering Facility: [facility] Address: [address] [place] [address] Performed By: #### U CRD ####[facility] LABCLIA [id number] [place] [address] [place] Cortis p Dex SerPl-ncon Cortisol post dose dexamethasone [Mass/Vol] 13.7 ug/dL High <1.8 [facility] Comment on above: Order Comment: Speci men Type: BLOOD SPECIMENOrdering Facility: [facility] Address: [address] [place] [address] Result Comment: Afte r overnight 1 mg dexamethasone, an service officer cortisol of <1.8 ug/dL may indicate an adequate cortisol suppression. This result should be interpreted within the clinical context and other test results. Bernadine et al. Evidence for the Low Dose Dexamethasone Suppression Test to Screen for Sneads's Syndrome - Recommendations for a Protocol for Biochemistry Laboratories. 1996 [place]. Clin. Biochem. 34 222-229. Performed By: #### 4 7851-1 ####[facility] LABCLIA [id number] [address] [place] [address] [place] METANEPHRINES 24H URon 10-28 Metanephrines (24H U) [Mass/Time] 891 ug/24 hr High 140-785 [facility] Comment on above: Order Comment: Speci men Type: URINE SPECIMENOrdering Facility: [facility] Address: [address] [place] [address] Result Comment: Urin e Metanephrine test performed by Liquid Chromatography Tandem Mass Spectrometry (LC-MS/MS). Results obtained with different methods or kits cannot be used interchangeably. This test was developed, and its performance characteristics determined by the [facility] Department of Pathology and Laboratory Medicine. It has not been cleared or approved by the FDA. The [facility] Department of Pathology and Laboratory Medicine is regulated under CLIA as qualified to perform high-complexity testing. This test is used for clinical purposes. It should not be regarded as investigational or for research. Performed By: #### U METAN ####[facility] LABIA [id number] [place] [address] [place] NORMETANEPHRINES, UR 526 ug/24 hr High 88-444 [facility] Comment on above: Order Comment: Speci men Type: URINE SPECIMENOrdering Facility: [facility] Address: [address] [place] [address] Performed By: #### U METAN ####[facility] LABIA [id number] [place] [id number] [place] PERIOD (HRS) 24 hr Normal [facility] Comment on above: Order Comment: Speci men Type: URINE SPECIMENOrdering Facility: [facility] Address: [address] [place] [address] Performed By: #### U METAN ####[facility] LABIA [id number] [place] [id number] [place] Performed By: #### U CRD ####[facility] LABCLIA [id number] [address] [address] [place] Specimen volume (24H U) 1.675 L Normal [facility] Comment on above: Order Comment: Speci men Type: URINE SPECIMENOrdering Facility: [facility] Address: [address] [place] [address] Performed By: #### U METAN ####[facility] LABCLIA [id number] [address] [place] Performed By: #### U CRD ####[facility] LABIA [id number] [place] [address] [place] ACTH Plas-mCncon 10-25-2024 Corticotropin (P) [Mass/Vol] 10.3 pg/mL Normal 7.2-63.3 [facility] Comment on above: Order Comment: Speci men Type: BLOOD SPECIMENOrdering Facility: [facility] Address: [address] [place] [address] Result Comment: ACTH Reference Range: 7-10 am: 7.2 - 63.3 pg/mL Performed By: #### 2 141-0 ####[facility] LABIA [id number] [address] [place] ALDOSTERONE/DIRECT RENIN RAT IOon 10-25-2024 TIO RENIN RATIO 0.2 Normal <3.8 [facility] Comment on above: Order Comment: Speci men Type: BLOOD SPECIMENOrdering Facility: [facility] Address: [address] [place] [address] Result Comment: A ra misha of aldosterone in ng/dL to direct renin in pg/mL greater than or equal to 3.8 is a positive screening test result for primary aldosteronism, when aldosterone is greater than or equal to 15 ng/dL. Performed By: #### A LDREN ####[facility] LABIA [id number] [place] [address] [place] Aldosterone [Mass/Vol] 8.4 ng/dL Normal 0.0-<35.4 [facility] Comment on above: Order Comment: Speci men Type: BLOOD SPECIMENOrdering Facility: [facility] Address: [address] [place] [address] Result Comment: The reference interval for serum/plasma [...] 15 ng/dL. Performed By: #### A LDREN ####[facility] LABCLIA [id number] [place] [address] [place] DIRECT RENIN 40.7 pg/mL Normal 3.6-81.6 [facility] Comment on above: Order Comment: Speci men Type: BLOOD SPECIMENOrdering Facility: [facility] Address: [address] [place] [address] Result Comment: The reference interval for direct [...] 15 ng/dL. Performed By: #### A LDREN ####[facility] LABCLIA [id number] [place] [address] [place] PATIENT UPRIGHT OR SUPINE Upright Normal [facility] Comment on above: Order Comment: Speci men Type: BLOOD SPECIMENOrdering Facility: [facility] Address: [address] [place] [address] Performed By: #### A LDREN ####[facility] LABCLIA [id number] [place] [address] [place] DEXAMETHASONEon 10-25-2024 DEXAMETHASONE <50.0 Normal [facility] Comment on above: Order Comment: Speci men Type: BLOOD SPECIMENOrdering Facility: [facility] Address: [address] [place] [address] Result Comment: INTE RPRETIVE INFORMATION: Dexamethasone, Serum [...] developed and its performance characteristics determined by [facility]. It has not been cleared or approved by the [place] Food and Drug Administration. This test was performed in a CLIA certified laboratory and is intended for clinical purposes. Performed By: [facility] [address] [place] [address] Sales And Marketing Director: Iván Mcgee MD, PhD CLIA Number: [id number] Performed By: #### D EMILIANO ####[facility]ITALCLIA [id number] [place] [address] DHEA-S BLDon 10-25-2024 DHEA-S [Mass/Vol] 37.3 ug/dL Normal 18.9-205.0 [facility] Comment on above: Order Comment: Speci men Type: BLOOD SPECIMENOrdering Facility: [facility] Address: [address] [place] [address] Result Comment: Refe rence ranges are age and gender specific. For additional information, reference range tables can be found in the laboratory test directory. The normal values are based on the following source: Dehydroepiandrosterone sulfate (DHEA S) [package insert V 17.0 [employer]]. [facility], [place], [place]: March 2013. Performed By: #### D SARA, K1 ####[facility] LABCLIA [id number] [place] [address] [place] POTASSIUMon 10-25-2024 Potassium [Moles/Vol] 3.6 mmol/L Low 3.7-5.1 [facility] Comment on above: Order Comment: Speci men Type: BLOOD SPECIMENOrdering Facility: [facility] Address: [address] [place] [address] Performed By: #### D SARA, ####[facility] LABCLIA [id number] [place] [address] [place] CNPNon 10-16-2024 CNPN Telephone (ENWSTR) ----- VIOLET CHIN ([id number]) 1965 F Date Time Provider Department 10/16/24 NINA LERNER ENWSTR During your visit today, we recorded the following information about you: Nina Lerner MD 10/16/2024 9:06 AM Signed Please let the patient know to follow up at the soonest possible. She should bring with her, the results of labs recommended on last visit Jovita Azul RN 10/16/2024 9:39 AM Signed Pt is scheduled with Dr. Lerner on 10/29/2024. Sent her a [employer] message reminding her to bring urine lab [...] (HCC) [E27.8] Order(s):ACTH BLD [SQACTH] Order #: [id number] FUTURE DHEA-S BLD [SQDHEAS] Order #: [id number] FUTURE DEXAMETHASONE [SQDEXA] Order #: [id number] FUTURE CORTISOL SUPRES POST [SQONCORP] Order #: [id number] FUTURE POTASSIUM [SQK1] Order #: [id number] FUTURE ALDOSTERONE/DIRECT RENIN RATIO [SQALDREN] Order #: [id number] FUTURE CREATININE, 24 HOUR URINE [SQUCRD] Order #: [id number]. #:[id number] METANEPHRINES 24H UR [SQUMETAN] Order #: [id number]. #:[id number] CATECHOLAMINES FRACTIONATED, URINE FREE [SQURCAT2] Order #: [id number] FUTURE Prescriptions as of 10/24/2024 - lisinopril-hydroCHLOROthi [...] Encounter Status:Closed by JOVITA AZUL on 10/16/24 [facility] Deni 10-14-2024 CNPN Telephone (RADMN) ----- EDWARDVIOLET ([id number]) 1965 F Date Time Provider Department 10/14/24 CASIE WEISS RADMN During your visit today, we recorded the following information about you: Allergies As of Date: 10/14/2024 Noted Allergy Reaction PROZAC (FLUOXETINE) 02/04/2021 8 - GI Upset Date Reviewed: 10/11/2024 Reviewed by: Rylie Petit, RT(R) - Fully Assessed Reason for Visit: Mammogram Result Call Back [[id number]] Prescriptions as of 10/14/2024 - lisinopril-hydroCHLOROthi azide [...] Encounter Status:Closed by ILANA DOLAN on 10/14/24 [facility] CNPN Telephone (OBGYWM) ----- EDWARDVIOLET Ramírez ([id number]) 1965 F Date Time Provider Department 10/14/24 [...] 11:16 AM Signed Left detailed message on [employer]. Allergies As of Date: 10/14/2024 Noted Allergy Reaction PROZAC (FLUOXETINE) 02/04/2021 8 - GI Upset Date Reviewed: 10/11/2024 Reviewed by: Rylie Petit, RT(R) - Fully Assessed Reason for Visit: Orders [681] Cmt: Lab orders needed Primary Visit Diagnosis:Essential hypertension [I10] Other Visit Diagnoses:Mixed hyperlipidemia [E78.2] Hyperglycemia [R73.9] Order(s):COMPREHENSIVE METABOLIC PANEL [SQCMP] Order #: [id number] FUTURE HEMOGLOBIN A1C [PFIMC4P] Order #: [id number] FUTURE LIPID PANEL, NONFASTING [SQLIPNF] Order #: [id number] FUTURE Prescriptions as of 10/14/2024 - lisinopril-hydroCHLOROthi [...] Status:Closed by GLENDY GORDON on 10/14/24 Normal [facility] CT ADRENAL WO/W IVCONon 03-1 CT ADRENAL WO/W IVCON * * *Final Report* * * DATE OF EXAM: Oct 14 2024 3:45PM [facility] 0536 - CT ADRENAL WO/W IVCON / [...] and iterative recon COMPARISON: Report available through [facility] for outside CT abdomen 04/16/2024 , no [...] be communicated with the ordering provider via [employer] staff message or phone message by [facility] [employer] within 2 business days of report finalization. --END OF FINDING-- Title Checker: ALIZA Transcribe Date/Time: Oct 14 2024 3:23P Dictated by : ANISH BECK MD This examination was interpreted and the report reviewed and electronically signed by: ANISH BECK MD on Oct 14 2024 4:24PM EST [id number] ACTIONABLE Invalid Interpretation Code [facility] CT Adrenal gland WO and W co ntrast IVOrdered By: Ccf Provider on 10-14-2024 Interpretation and review of laboratory results Abnormal [facility] Radiology Result ACTIONABLE Abnormal [facility] Comment on above: This report contains an [...] contact your provider for the next steps. [facility] CT Adrenal gland WO and W [...] be communicated with the ordering provider via [employer] staff message or phone message by [facility] [employer] [facility] within 2 business days of report finalization. --END OF FINDING-- Title Checker: ALIZA Transcribe Date/Time: Oct 14 2024 3:23P Dictated by : ANISH BECK MD This examination was interpreted and the report reviewed and electronically signed by: ANISH BECK MD on Oct 14 2024 4:24PM [facility] DIVISION OF RADIOLOGY * * *Final Report* * * DATE OF EXAM: Oct 14 2024 3:45PM [facility] 0536 - CT ADRENAL WO/W IVCON / [...] and iterative recon COMPARISON: Report available through [facility] for outside CT abdomen 04/16/2024 , no [...] No additional findings DIVISION OF RADIOLOGY Provider, [facility] - 10/14/2024 * * *Final Report* * * DATE OF EXAM: Oct 14 2024 3:45PM [facility] 0536 - CT ADRENAL WO/W IVCON / [...] and iterative recon COMPARISON: Report available through [facility] for outside CT abdomen 04/16/2024 , no [...] be communicated with the ordering provider via [employer] staff message or phone message by [facility] within 2 business days of report finalization. --END OF FINDING-- Title Checker: ALIZA Transcribe Date/Time: Oct 14 2024 3:23P Dictated by : ANISH BECK MD This examination was interpreted and the report reviewed and electronically signed by: ANISH BECK MD on Oct 14 2024 4:24PM EST [facility] Radiology Study observation (narrative) [facility] Comprehensive metabolic 2000 panelOrdered By: Keri Bañuelos on 10-14-2024 Albumin [Mass/Vol] 4.2 g/dL 3.9 - 4.9 g/dL [facility] ALP [Catalytic activity/Vol] 110 U/L 34 - 123 U/L [facility] ALT [Catalytic activity/Vol] 9 U/L 7 - 38 U/L [facility] Anion gap [Moles/Vol] 12 mmol/L 8 - 15 mmol/L [facility] AST [Catalytic activity/Vol] 13 U/L 13 - 35 U/L [facility] Bilirubin [Mass/Vol] 0.4 mg/dL 0.2 - 1 .3 mg/dL [facility] Calcium [Mass/Vol] 10 mg/dL 8.5 - 10. 2 mg/dL [facility] Chloride [Moles/Vol] 94 mmol/L Low 98 - 10 7 mmol/L [facility] CO2 [Moles/Vol] 28 mmol/L 22 - 30 mmol/L [facility] Creatinine [Mass/Vol] 0.73 mg/dL 0.58 - 0.96 mg/dL [facility] GFR/1.73 sq M.predicted among non-blacks MDRD (S/P/Bld) [Vol rate/Area] 95 mL/min/{1.73_m2} - PINF [facility] Comment on above: Estimated Glomerular Filtration [...] [Mass/Vol] 81 mg/dL 74 - 99 mg/dL [facility] Comment on above: The [place] Diabete s Association (ADA) provides guidance for [...] Standards of Medical Care in Diabetes 2016, [place] Diabetes Association. Diabetes Care. 2016.39(Suppl 1). Interpretation and review of laboratory results Abnormal [facility] Potassium [Moles/Vol] 4.1 mmol/L 3.7 - 5.1 mmol/L [facility] Protein [Mass/Vol] 7.1 g/dL 6.3 - 8.0 g/dL [facility] Sodium [Moles/Vol] 134 mmol/L Low 136 - 144 mmol/L [facility] Urea nitrogen [Mass/Vol] 15 mg/dL 7 - 21 mg/dL [facility] Comprehensive metabolic 2000 panelon 10-14-2024 Albumin [Mass/Vol] 4.2 g/dL Normal 3.9-4.9 [facility] Comment on above: Order Comment: Speci men Type: BLOOD SPECIMENOrdering Facility: [facility] Address: [address] [place], [place] [address] Performed By: #### 2 4323-8 ####[facility] [id number] [place] [address] [place] ALP [Catalytic activity/Vol] 110 U/L Normal 34-123 [facility] Comment on above: Order Comment: Speci men Type: BLOOD SPECIMENOrdering Facility: [facility] Address: [address] [place] [address] Performed By: #### 2 4323-8 ####[facility] [id number] [place] [address] [place] ALT [Catalytic activity/Vol] 9 U/L Normal 7-38 [facility] Comment on above: Order Comment: Speci men Type: BLOOD SPECIMENOrdering Facility: [facility] Address: [address] [place] [address] Performed By: #### 2 4323-8 ####[facility] ROSA MILLTOWNCLIA [id number] [place] [address] [place] Anion gap [Moles/Vol] 12 mmol/L Normal 8-15 [facility] Comment on above: Order Comment: Speci men Type: BLOOD SPECIMENOrdering Facility: [facility] Address: [address] [place] [address] Performed By: #### 2 4323-8 ####[facility] MILLTOWNCLIA [id number] [place] [address] [place] AST [Catalytic activity/Vol] 13 U/L Normal 13-35 [facility] Comment on above: Order Comment: Speci men Type: BLOOD SPECIMENOrdering Facility: [facility] Address: [address] [place] [address] Performed By: #### 2 4323-8 ####[facility] MILLTOWNCLIA [id number] [place] [address] [place] Bilirubin [Mass/Vol] 0.4 mg/dL Normal 0.2-1.3 [facility] Comment on above: Order Comment: Speci men Type: BLOOD SPECIMENOrdering Facility: [facility] Address: [address] [place] [address] Performed By: #### 2 4323-8 ####[facility] ROSA MILLTOWNCLIA [id number] [place] [address] [place] Calcium [Mass/Vol] 10.0 mg/dL Normal 8.5-10.2 [facility] Comment on above: Order Comment: Speci men Type: BLOOD SPECIMENOrdering Facility: [facility] Address: [address] [place] [address] Performed By: #### 2 4323-8 ####[facility] MILLWNCLIA [id number] [place] [address] [place] Chloride [Moles/Vol] 94 mmol/L Low 98-107 [facility] Comment on above: Order Comment: Speci men Type: BLOOD SPECIMENOrdering Facility: [facility] Address: [address] [place] [address] Performed By: #### 2 4323-8 ####[facility] [id number] [place] [address] [place] CO2 [Moles/Vol] 28 mmol/L Normal 22-30 [facility] Comment on above: Order Comment: Speci men Type: BLOOD SPECIMENOrdering Facility: [facility] Address: [address] [place] [address] Performed By: #### 2 4323-8 ####[facility] [id number] [place] [address] [place] Creatinine [Mass/Vol] 0.73 mg/dL Normal 0.58-0.96 [facility] Comment on above: Order Comment: Speci men Type: BLOOD SPECIMENOrdering Facility: [facility] Address: [address] [place] [address] Performed By: #### 2 4323-8 ####[facility] [id number] [address] Creatinine and Glomerular filtration rate.predicted panel (S/P/Bld) 95 mL/min/1.73m??? Normal >=60 [facility] Comment on above: Order Comment: Speci men Type: BLOOD SPECIMENOrdering Facility: [facility] Address: [address] [place] [address] Result Comment: Yesenia mated Glomerular Filtration Rate [...] actual GFR. Performed By: #### 2 4323-8 ####[facility]ARD[facility]OWNCLIA [id number] [place] [address] [place] Glucose [Mass/Vol] 81 mg/dL Normal 74-99 [facility] Comment on above: Order Comment: Speci men Type: BLOOD SPECIMENOrdering Facility: [facility] Address: [address] [place] [address] Result Comment: The [place] Diabetes Association (ADA) provides guidance for cutoff [...] Standards of Medical Care in Diabetes 2016, [place] Diabetes Association. Diabetes Care. 2016.39(Suppl 1). Performed By: #### 2 4323-8 ####[facility] [id number] [place] [address] [place] Potassium [Moles/Vol] 4.1 mmol/L Normal 3.7-5.1 [facility] Comment on above: Order Comment: Speci men Type: BLOOD SPECIMENOrdering Facility: [facility] Address: [address] [place] [address] Performed By: #### 2 4323-8 ####[facility] [id number] [place] [address] [place] Protein [Mass/Vol] 7.1 g/dL Normal 6.3-8.0 [facility] Comment on above: Order Comment: Speci men Type: BLOOD SPECIMENOrdering Facility: [facility] Address: [address] [place] [address] Performed By: #### 2 4323-8 ####[facility] [id number] [place] [address] [place] Sodium [Moles/Vol] 134 mmol/L Low 136-144 [facility] Comment on above: Order Comment: Speci men Type: BLOOD SPECIMENOrdering Facility: [facility] Address: [address] [place] [address] Performed By: #### 2 4323-8 ####[facility] [id number] [place] [address] [place] Urea nitrogen [Mass/Vol] 15 mg/dL Normal 7-21 [facility] Comment on above: Order Comment: Speci men Type: BLOOD SPECIMENOrdering Facility: [facility] Address: [address] [place] [address] Performed By: #### 2 4323-8 ####[facility] [id number] [place] [address] [place] HbA1c (Bld)on 10-14-2024 Average glucose Estimated from glycated hemoglobin (Bld) [Mass/Vol] 126 mg/dL Normal [facility] Comment on above: Order Comment: Speci men Type: BLOOD SPECIMENOrdering Facility: [facility] Address: [address] [place] [address] Result Comment: eAG: (Estimated average glucose) is a calculated value from HgbA1c and is senior human resources representative of the average blood glucose level in the last 2-3 month period. Performed By: #### 5 5454-3 ####[facility] LABCLIA [id number] [place] [address] [place] HbA1c (Bld) [Mass fraction] 6.0 % High 4.3-5.6 [facility] Comment on above: Order Comment: Speci men Type: BLOOD SPECIMENOrdering Facility: [facility] Address: [address] [place] [address] Result Comment: Amer ican Diabetes Association guidelines indicate that patients with HgbA1c in the range 5.7-6.4% are at increased risk for development of diabetes, and intervention by lifestyle modification may be beneficial. HgbA1c greater or equal to 6.5% is considered diagnostic of diabetes. Performed By: #### 5 5454-3 ####[facility] LABCLIA [id number] [place] [address] [place] LIPID PANEL, NONFASTINGon Cholesterol [Mass/Vol] 166 mg/dL Normal <200 [facility] Comment on above: Order Comment: Maurilio men Type: BLOOD SPECIMENOrdering Facility: [facility] Address: [address] [place] [address] Result Comment: <200 mg/dL, Desirable 200-239 mg/dL, Borderline high >239 mg/dL, High Performed By: #### L IPNF ####[facility] LABCLIA [id number] [place] [address] [place] HDL CHOLESTEROL, NF 45 mg/dL Normal >39 [facility] Comment on above: Order Comment: Jacquii men Type: BLOOD SPECIMENOrdering Facility: [facility] Address: [address] [place] [address] Result Comment: 40-5 9 mg/dL, Acceptable >59 mg/dL, High: Negative risk factor for coronary heart disease <40 mg/dL, Low: Positive risk factor for coronary heart disease Performed By: #### L IPNF ####[facility] LABIA [id number] [place] [address] [place] LDL CHOLESTEROL, NF 101 mg/dL High <100 [facility] Comment on above: Order Comment: Speci men Type: BLOOD SPECIMENOrdering Facility: [facility] Address: [address] [place] [address] Result Comment: <100 mg/dL, Optimal 100-129 mg/dL, Near optimal/above optimal 130-159 mg/dL, Borderline high 160-189 mg/dL, High >189 mg/dL, Very high Secondary prevention optimal LDL Cholesterol levels are recommended to be < 70 mg/dL Performed By: #### L IPNF ####[facility] LABCLIA [id number] [address] OF [facility] LDL/HDL RATIO, NF 2.24 mg/dL Normal <2.54 [facility] Comment on above: Order Comment: Speci men Type: BLOOD SPECIMENOrdering Facility: [facility] Address: [address] [place] [address] Result Comment: Refnikolas ramírez: 1. National Cholesterol Education Program ATP III Guideline At-A-Glance Quick Desk Reference: National Heart, Lung, and Blood Dora. National Institutes of Health. 2001: NIH Publication No. 01-3305. 2. An International Atherosclerosis Society position paper: global recommendations for the management of dyslipidemia: executive summary, Atherosclerosis. 2014: 232(2):410-413. Performed By: #### L IPNF ####[facility] LABIA [id number] [address] NON HDL CHOL, NF 121 mg/dL Normal <130 [facility] Comment on above: Order Comment: Jacquii [facility] Type: BLOOD SPECIMENOrdering Facility: [facility] Address: [address] [place] [address] Result Comment: <130 mg/dL, Optimal 130-159 mg/dL, Near optimal/above optimal 160-189 mg/dL, Borderline high 190-219 mg/dL, High >219 mg/dL, Very high Secondary prevention optimal non HDL Cholesterol levels are recommended to be <100 mg/dL Performed By: #### L IPNF ####[facility] LABCLIA [id number] [address] OF [facility] T CHOL/HDL RATIO NF 3.69 mg/dL Normal <5.10 [facility] Comment on above: Order Comment: Speci men Type: BLOOD SPECIMENOrdering Facility: [facility] Address: [address] [place] [address] Performed By: #### L IPNF ####[facility] LABCLIA [id number] [place] [address] [place] TRIGLYCERIDES, NF 102 mg/dL Normal <150 [facility] Comment on above: Order Comment: Speci men Type: BLOOD SPECIMENOrdering Facility: [facility] Address: [address] [place] [address] Result Comment: <150 mg/dL, Normal 150-199 mg/dL, Borderline high 200-499 mg/dL, High >499 mg/dL, Very high Performed By: #### L IPNF ####[facility] LABIA [id number] [address] STATES OF [facility] VLDL CHOLESTEROL, NF 20 mg/dL Normal <30 [facility] Comment on above: Order Comment: Speci men Type: BLOOD SPECIMENOrdering Facility: [facility] Address: [address] [place] [address] Performed By: #### L IPNF ####[facility] LABIA [id number] [place] [address] [place] DBT Breast - [...] Casie Weiss M.D. Electronically signed on: 10/11/2024 Title Checker: PETER Transcriall Date/Time: Oct 11 2024 9:43A Dictated by: CASIE WEISS MD This examination was interpreted and the report reviewed and electronically signed by: CASIE WEISS MD on Oct 11 2024 11:52AM [facility] DIVISION OF RADIOLOGY * * *Final Report* * * DATE OF EXAM: Oct 11 2024 9:57AM [facility] 0582 - [place] SCREENING W GERALD / PROCEDURE REASON: Encounter for screening mammogram for breast cancer * * * * Physician Interpretation * * * * RESULT: [facility] [address] [place] [address] #[id number] - [place] SCREENING W GERALD HISTORY: 59 [...] the left breast. DIVISION OF RADIOLOGY Provider, [facility] - 10/11/2024 * * *Final Report* * * DATE OF EXAM: Oct 11 2024 9:57AM [facility] 0582 - [place] SCREENING W GERALD / PROCEDURE REASON: Encounter for screening mammogram for breast cancer * * * * Physician Interpretation * * * * RESULT: [facility] [address] [place] [address] #[id number] - [place] SCREENING W GERALD HISTORY: 59 [...] Casie Weiss M.D. Electronically signed on: 10/11/2024 Title Checker: PETER Transcribe Date/Time: Oct 11 2024 9:43A Dictated by: CASIE WEISS MD This examination was interpreted and the report reviewed and electronically signed by: CASIE WEISS MD on Oct 11 2024 11:52AM EST [facility] Radiology Study observation (narrative) [facility] DBT Breast - bilateral scree ningOrdered By: [facility] Provider on 10-11-2024 [facility] SCREENING W TOMOon 10-11 [facility] SCREENING W GERALD * * *Final Report* * * DATE OF EXAM: Oct 11 2024 9:57AM [facility] 0582 - [place] SCREENING W GERALD / PROCEDURE REASON: Encounter for screening mammogram for breast cancer * * * * Physician Interpretation * * * * RESULT: [facility] [address] [place] [address] #[id number] - [place] SCREENING W GERALD HISTORY: 59 [...] Casie Weiss M.D. Electronically signed on: 10/11/2024 Title Checker: PETER Transcribe Date/Time: Oct 11 2024 9:43A Dictated by: CASIE WEISS MD This examination was interpreted and the report reviewed and electronically signed by: CASIE WEISS MD on Oct 11 2024 11:52AM EST [id number] Normal [facility] CNOVon 06-28-2024 CNOV Office Visit (ENWSTR ) ----- VIOLET CHIN ([id number]) 1965 F Date Time Provider Department 06/28/24 8:00 AM NINA LERNER ENWSTR During your visit today, we recorded the following information about you: Pulse Respiration Blood pressure Weight 63/minute 20/minute 158/92 82.6 kg Height 1.575 m Nina Lerner MD 06/28/2024 2:54 PM Signed [facility] Initial Clinic Visit Note Patient referred by: Aissatou Mac APRN. ENGRAVER SET UP OPERATOR Chief compliant: B/L Adrenal nodules History of [...] the images as this was done at [facility]. We sha (more content not included)... Normal [facility] 05-28-[address] [facility] ----- VIOLET CHIN ([id number]) 1965 F Date Time Provider Department 05/28/24 ERICK LEMUS [facility] During your visit today, we recorded the [...] Encounter Status:Closed by CARA SANDERS on 08/27/24 [facility] CNOVbrii 05-15-2024 CNOV Office Visit (FAMPWS ) ----- VIOLET CHIN ([id number]) 1965 F Date Time Provider Department 05/15/24 2:40 PM AISSATOU MAC During your visit today, we recorded the following information about you: Pulse Respiration Blood pressure Weight 54/minute 18/minute 138/80 81.2 kg Aissatou Mac APRN.ENGRAVER SET UP OPERATOR 06/28/2024 8:33 AM Addendum 05/15/2024 Patient presents with: Hospital F/U: [facility] 04/18 for abdominal pain SUBJECTIVE: This is a 58 year old that is here today for Above Complaints. HOSPITAL/ER FOLLOW UP: Reason for visit: abdominal pain Which facility: [facility] Date of visit: 04/16/2024-04/18/2024 Diagnosis: duodenal lipoma [...] if symptoms persist after completion Aissatou Podlogar, AUTOMOTIVE GLASS MECHANIC.ENGRAVER SET UP OPERATOR Prescription instructions reviewed with patient as (more content not included)... Normal [facility] Basic Metabolic Profile (BMP )on 04-18-2024 BUN/CRE 23.0 RATIO High 10-20 [facility] Comment on above: Performed By: #### L 501.2300, L500.2500, L501.5200 #### [facility] Laboratory [address] [place], [address] CA,Total 9.1 mg/dL Normal 8.5-10.1 [facility] Comment on above: Performed By: #### L 501.2300, L500.2500, L501.5200 #### [facility] [address] [place], [address] Chloride [Moles/Vol] 101 mmol/L Normal 98-107 [facility] Comment on above: Performed By: #### L 501.2300, L500.2500, L501.5200 #### [facility] [address] [place], [address] CO2 [Moles/Vol] 26.0 mmol/L Normal 21.0-32.0 [facility] Comment on above: Performed By: #### L 501.2300, L500.2500, L501.5200 #### [facility] [address] [place], [address] Creatinine [Mass/Vol] 0.48 mg/dL Low 0.55-1.02 [facility] Comment on above: Result Comment: The validity of the calculated GFR GFRAA in patients over 70 years has not been determined. Clinical correlation is essential. Performed By: #### L 501.2300, L500.2500, L501.5200 #### [facility] [address] [place], [address] ECRCL 126.93 ml/min Normal [facility] Comment on above: Performed By: #### L 501.2300, L500.2500, L501.5200 #### [facility] [address] [place], [address] EST GFR - AA 171 mL/min Normal >60 [facility] Comment on above: Result Comment: Afri can Tristanian GFR Calc Performed By: #### L 501.2300, L500.2500, L501.5200 #### [facility] [address] [place], [address] GAP 6 Normal 5-15 [facility] Comment on above: Performed By: #### L 501.2300, L500.2500, L501.5200 #### [facility] [address] [place], [address] GFR/1.73 sq M.predicted among non-blacks MDRD (S/P/Bld) [Vol rate/Area] 142 mL/min/{1.73_m2} Normal >60 [facility] Comment on above: Result Comment: Non- GFR Calc Performed By: #### L 501.2300, L500.2500, L501.5200 #### [facility] [address] [place], [address] Glucose [Mass/Vol] 101 mg/dL Normal 74-106 [facility] Comment on above: Result Comment: Fast ing Glucose result from 100 to 125 mg/dL suggests IMPAIRED HOMEOSTASIS per A.D.A. criteria. Performed By: #### L 501.2300, L500.2500, L501.5200 #### [facility] [address] [place], [address] Potassium [Moles/Vol] 3.2 mmol/L Low 3.5-5.1 [facility] Comment on above: Performed By: #### L 501.2300, L500.2500, L501.5200 #### [facility] [address] [place], [address] Sodium [Moles/Vol] 133 mmol/L Low 136-145 [facility] Comment on above: Performed By: #### L 501.2300, L500.2500, L501.5200 #### [facility] [address] [place], [address] Urea nitrogen [Mass/Vol] 11 mg/dL Normal 7-18 [facility] Comment on above: Performed By: #### L 501.2300, L500.2500, L501.5200 #### [facility] [address] [place], [address] CBC W/Diff, Automatedon 04-07 Absolute Lymph 1.91 X10 3/uL Normal 0.83-4.51 [facility] Comment on above: Performed By: #### L 501.2300, L500.2500, L501.5200 #### [facility] [address] [place], [address] Absolute Neut 6.1 X10 3/uL Normal 2.0-7.7 [facility] Comment on above: Performed By: #### L 501.2300, L500.2500, L501.5200 #### [facility] [address] [place], [address] Basophils/100 WBC (Bld) 0.4 % Normal 0-1 [facility] Comment on above: Performed By: #### L 501.2300, L500.2500, L501.5200 #### [facility] [address] [place], [address] Eosinophils/100 WBC (Bld) 0.4 % Normal 0-5 [facility] Comment on above: Performed By: #### L 501.2300, L500.2500, L501.5200 #### [facility] [address] [place], [address] Erythrocyte distribution width (RBC) [Ratio] 13.3 % Normal 11.6-14.6 [facility] Comment on above: Performed By: #### L 501.2300, L500.2500, L501.5200 #### [facility] [address] [place], [address] Hematocrit (Bld) [Volume fraction] 35.3 % Low 37-47 [facility] Comment on above: Performed By: #### L 501.2300, L500.2500, L501.5200 #### [facility] [address] [place], [address] Hemoglobin (Bld) [Mass/Vol] 11.8 g/dL Low 12.0-15.0 [facility] Comment on above: Performed By: #### L 501.2300, L500.2500, L501.5200 #### [facility] [address] [place], [address] IG% 0.400 Normal 0.0-0.9 [facility] Comment on above: Result Comment: IG% - Immature Granulocytes (promyelocytes, myelocytes and metamyelocytes) > 1% indicates that a LEFT SHIFT is Present. Performed By: #### L 501.2300, L500.2500, L501.5200 #### [facility] [address] [place], [address] Lymphocytes/100 WBC (Bld) 22.3 % Normal 19-41 [facility] Comment on above: Performed By: #### L 501.2300, L500.2500, L501.5200 #### [facility] [address] [place], [address] MCH (RBC) [Entitic mass] 30.7 pg Normal 27.0-32.0 [facility] Comment on above: Performed By: #### L 501.2300, L500.2500, L501.5200 #### [facility] [address] [place], [address] MCHC (RBC) [Mass/Vol] 33.4 g/dL Normal 32-36 [facility] Comment on above: Performed By: #### L 501.2300, L500.2500, L501.5200 #### [facility] [address] [place], [address] MCV (RBC) [Entitic vol] 91.9 fL Normal 81-99 [facility] Comment on above: Performed By: #### L 501.2300, L500.2500, L501.5200 #### [facility] [address] [place], [address] Monocytes/100 WBC (Bld) 5.8 % Normal 0-10 [facility] Comment on above: Performed By: #### L 501.2300, L500.2500, L501.5200 #### [facility] [address] [place], [address] Neutrophils/100 WBC (Bld) 70.7 % High 47-70 [facility] Comment on above: Performed By: #### L 501.2300, L500.2500, L501.5200 #### [facility] [address] [place], [address] Nucleated RBC (Bld) [#/Vol] 0 10*3/uL Normal 0-5 [facility] Comment on above: Performed By: #### L 501.2300, L500.2500, L501.5200 #### [facility] [address] [place], [address] Platelet mean volume (Bld) [Entitic vol] 10.4 fL Normal 6.2-12.0 [facility] Comment on above: Performed By: #### L 501.2300, L500.2500, L501.5200 #### [facility] [address] [place], [address] Platelets (Bld) [#/Vol] 197 10*3/uL Normal 150-450 [facility] Comment on above: Performed By: #### L 501.2300, L500.2500, L501.5200 #### [facility] [address], [address] RBC (Bld) [#/Vol] 3.84 10*6/uL Low 4.2-5.4 [facility] Comment on above: Performed By: #### L 501.2300, L500.2500, L501.5200 #### [facility] [address] [place], [address] RDW SD 45.0 fl High 35.1-43.9 [facility] Comment on above: Performed By: #### L 501.2300, L500.2500, L501.5200 #### [facility] [address], [address] WBC (Bld) [#/Vol] 8.6 10*3/uL Normal 4.4-11.0 [facility] Comment on above: Performed By: #### L 501.2300, L500.2500, L501.5200 #### [facility] [address] [place], [address] Discharge Instructionon 04-07 Discharge Instruction [facility] Medical Records Department [address] [place] [address] Instructions for Home/Discharge Instructions 04/18/24 1337 MR#: [id number] Acct: [id number] Name: VIOLET CHIN Rep #: [id number] : 1965 58 From: Kostas Coffman DO [...] DO; Dr. Trenton Hidalgo DO Signed Normal [facility] Ferritinon 04-18-2024 Ferritin [Mass/Vol] 242 ng/mL Normal 8-252 [facility] Comment on above: Order Comment: Has P atient had X-rays with Contrast this admission? NN Performed By: #### L 501.2300, L500.2500, L501.5200 #### [facility] [address] [place], [address] Folates, (Folic Acid)on 04-07 FOLATES 10.90 ng/mL Normal 3.1-55.4 [facility] Comment on above: Order Comment: Has Ranulfo roy had X-rays with Contrast this admission? NN Performed By: #### L 501.2300, L500.2500, L501.5200 #### [facility] [address] [place], [address] Iron+Iron Binding Capacityon 04-18-2024 Iron [Mass/Vol] 58 ug/dL Normal 50-170 [facility] Comment on above: Order Comment: Has Ranulfo roy had X-rays with Contrast this admission? NN Performed By: #### L 501.2300, L500.2500, L501.5200 #### [facility] [address] [place], [address] IRON SATURATION 25.3 Normal 15.0-55.0 [facility] Comment on above: Order Comment: Has Ranulfo roy had X-rays with Contrast this admission? NN Performed By: #### L 501.2300, L500.2500, L501.5200 #### [facility] [address] [place], [address] TIBC 229 ug/dL Low 250-450 [facility] Comment on above: Order Comment: Has Ranulfo roy had X-rays with Contrast this admission? NN Performed By: #### L 501.2300, L500.2500, L501.5200 #### [facility] [address] [place], [address] Magnesiumon 04-18-2024 Magnesium [Mass/Vol] 2.1 mg/dL Normal 1.6-2.6 [facility] Comment on above: Performed By: #### L 501.2300, L500.2500, L501.5200 #### [facility] [address] [place], [address] Phosphoruson 04-18-2024 Phosphate [Mass/Vol] 2.1 mg/dL Low 2.5-4.9 [facility] Comment on above: Performed By: #### L 501.2300, L500.2500, L501.5200 #### [facility] [address] [place], [address] Vitamin B12on 04-18-2024 Cobalamin (Vitamin B12) [Mass/Vol] 603 pg/mL Normal 211-911 [facility] Comment on above: Performed By: #### L 501.2300, L500.2500, L501.5200 #### [facility] [address] [place], [address] Bilirubin, Directon 04-17-20 Bilirubin.direct [Mass/Vol] 0.29 mg/dL Normal 0.00-0.30 [facility] Comment on above: Performed By: #### L 501.2300, L500.2500, L501.5200 #### [facility] [address] [place], [address] CBC W/Diff, Automatedon 04-07 Absolute Lymph 1.54 X10 3/uL Normal 0.83-4.51 [facility] Comment on above: Performed By: #### P SUIV #### [facility] [address] [place], [address] Absolute Neut 13.6 X10 3/uL High 2.0-7.7 [facility] Comment on above: Performed By: #### P SUIV #### [facility] [address] [place], [address] Basophils/100 WBC (Bld) 0.2 % Normal 0-1 [facility] Comment on above: Performed By: #### P SUIV #### [facility] [address] [place], [address] Eosinophils/100 WBC (Bld) 0.0 % Normal 0-5 [facility] Comment on above: Performed By: #### P SUIV #### [facility] [address] [place], [address] Erythrocyte distribution width (RBC) [Ratio] 13.2 % Normal 11.6-14.6 [facility] Comment on above: Performed By: #### P SUIV #### [facility] [address] [place], [address] Hematocrit (Bld) [Volume fraction] 39.6 % Normal 37-47 [facility] Comment on above: Performed By: #### P SUIV #### [facility] [address] [place], [address] Hemoglobin (Bld) [Mass/Vol] 13.4 g/dL Normal 12.0-15.0 [facility] Comment on above: Performed By: #### P SUIV #### [facility] [address] [place], [address] IG% 0.500 Normal 0.0-0.9 [facility] Comment on above: Result Comment: IG% - Immature Granulocytes (promyelocytes, myelocytes and metamyelocytes) > 1% indicates that a LEFT SHIFT is Present. Performed By: #### P SUIV #### [facility] [address] [place], [address] Lymphocytes/100 WBC (Bld) 9.7 % Low 19-41 [facility] Comment on above: Performed By: #### P SUIV #### [facility] [address] [place], [address] MCH (RBC) [Entitic mass] 30.9 pg Normal 27.0-32.0 [facility] Comment on above: Performed By: #### P SUIV #### [facility] [address] [place], [address] MCHC (RBC) [Mass/Vol] 33.8 g/dL Normal 32-36 [facility] Comment on above: Performed By: #### P SUIV #### [facility] [address] [place], [address] MCV (RBC) [Entitic vol] 91.5 fL Normal 81-99 [facility] Comment on above: Performed By: #### P SUIV #### [facility] [address] [place], [address] Monocytes/100 WBC (Bld) 4.6 % Normal 0-10 [facility] Comment on above: Performed By: #### P SUIV #### [facility] [address] [place], [address] Neutrophils/100 WBC (Bld) 85.0 % High 47-70 [facility] Comment on above: Performed By: #### P SUIV #### [facility] [address] [place], [address] Nucleated RBC (Bld) [#/Vol] 0 10*3/uL Normal 0-5 [facility] Comment on above: Performed By: #### P SUIV #### [facility] [address] [place], [address] Platelet mean volume (Bld) [Entitic vol] 10.1 fL Normal 6.2-12.0 [facility] Comment on above: Performed By: #### P SUIV #### [facility] [address] [place], [address] Platelets (Bld) [#/Vol] 206 10*3/uL Normal 150-450 [facility] Comment on above: Performed By: #### P SUIV #### [facility] [place], [address] RBC (Bld) [#/Vol] 4.33 10*6/uL Normal 4.2-5.4 [facility] Comment on above: Performed By: #### P SUIV #### [facility] [address] [place], [address] RDW SD 44.6 fl High 35.1-43.9 [facility] Comment on above: Performed By: #### P SUIV #### [facility] [address] [place], [address] WBC (Bld) [#/Vol] 16.0 10*3/uL High 4.4-11.0 [facility] Comment on above: Performed By: #### P SUIV #### [facility] [address] [place], [address] Comprehensive Metabolic Prof ilon 04-17-2024 Albumin [Mass/Vol] 3.0 g/dL Low 3.2-5.0 [facility] Comment on above: Performed By: #### L 501.2300, L500.2500, L501.5200 #### [facility] [address] [place], [address] Albumin/Globulin [Mass ratio] 0.8 {ratio} Low 0.9-2.4 [facility] Comment on above: Performed By: #### L 501.2300, L500.2500, L501.5200 #### [facility] [address] [place], [address] ALK P 75 U/L Normal 45-117 [facility] Comment on above: Performed By: #### L 501.2300, L500.2500, L501.5200 #### [facility] [address] [place], [address] ALT [Catalytic activity/Vol] 16 U/L Normal 13-56 [facility] Comment on above: Performed By: #### L 501.2300, L500.2500, L501.5200 #### [facility] [address] [place], [address] AST [Catalytic activity/Vol] 19 U/L Normal 15-37 [facility] Comment on above: Performed By: #### L 501.2300, L500.2500, L501.5200 #### [facility] [address] [place], [address] Bilirubin [Mass/Vol] 0.70 mg/dL Normal 0.20-1.00 [facility] Comment on above: Result Comment: For patients on eltrombopag therapy, use of Dimension [place] TBIL is not recommended. Performed By: #### L 501.2300, L500.2500, L501.5200 #### [facility] [address] [place], [address] BUN/CRE 18.9 RATIO Normal 10-20 [facility] Comment on above: Performed By: #### L 501.2300, L500.2500, L501.5200 #### [facility] [address] [place], [address] CA,Total 9.2 mg/dL Normal 8.5-10.1 [facility] Comment on above: Performed By: #### L 501.2300, L500.2500, L501.5200 #### [facility] [address] [place], [address] Chloride [Moles/Vol] 98 mmol/L Normal 98-107 [facility] Comment on above: Performed By: #### L 501.2300, L500.2500, L501.5200 #### [facility] [address] [place], [address] CO2 [Moles/Vol] 27.0 mmol/L Normal 21.0-32.0 [facility] Comment on above: Performed By: #### L 501.2300, L500.2500, L501.5200 #### [facility] [address] [place], [address] Creatinine [Mass/Vol] 0.53 mg/dL Low 0.55-1.02 [facility] Comment on above: Result Comment: The validity of the calculated GFR GFRAA in patients over 70 years has not been determined. Clinical correlation is essential. Performed By: #### L 501.2300, L500.2500, L501.5200 #### [facility] [address] [place], [address] ECRCL 114.96 ml/min Normal [facility] Comment on above: Performed By: #### L 501.2300, L500.2500, L501.5200 #### [facility] [address] [place], [address] EST GFR - AA 152 mL/min Normal >60 [facility] Comment on above: Result Comment: Afri can [employer] GFR Calc Performed By: #### L 501.2300, L500.2500, L501.5200 #### [facility] [address] [place], [address] GAP 7 Normal 5-15 [facility] Comment on above: Performed By: #### L 501.2300, L500.2500, L501.5200 #### [facility] [address] [place], [address] GFR/1.73 sq M.predicted among non-blacks MDRD (S/P/Bld) [Vol rate/Area] 126 mL/min/{1.73_m2} Normal >60 [facility] Comment on above: Result Comment: Non- GFR Calc Performed By: #### L 501.2300, L500.2500, L501.5200 #### [facility] [address] [place], [address] Globulin (S) [Mass/Vol] 4.0 g/dL Normal 2.2-4.2 [facility] Comment on above: Performed By: #### L 501.2300, L500.2500, L501.5200 #### [facility] [address] [place], [address] Glucose [Mass/Vol] 122 mg/dL High 74-106 [facility] Comment on above: Result Comment: Fast ing Glucose result from 100 to 125 mg/dL suggests IMPAIRED HOMEOSTASIS per A.D.A. criteria. Performed By: #### L 501.2300, L500.2500, L501.5200 #### [facility] [address] [place], [address] Potassium [Moles/Vol] 3.4 mmol/L Low 3.5-5.1 [facility] Comment on above: Performed By: #### L 501.2300, L500.2500, L501.5200 #### [facility] [address], [address] Sodium [Moles/Vol] 132 mmol/L Low 136-145 [facility] Comment on above: Performed By: #### L 501.2300, L500.2500, L501.5200 #### [facility] [address], [address] T PROT 7.0 g/dL Normal 6.4-8.2 [facility] Comment on above: Performed By: #### L 501.2300, L500.2500, L501.5200 #### [facility] [address], [address] Urea nitrogen [Mass/Vol] 10 mg/dL Normal 7-18 [facility] Comment on above: Performed By: #### L 501.2300, L500.2500, L501.5200 #### [facility] [address], [address] Consultation - Surgicalon Consultation - Surgical [facility] Medical Records Department [address] [place] [address] Consultation - Surgical 04/17/24 0906 MR#: [id number] Acct: [id number] Name: VIOLET CHIN Rep #: [id number] : 1965 58 From: Flori KIRBY PA-C PCP: Dr. Rico Lemus MD Status:ADM IN Location: RI3 [id number] 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 I agree with physician high school assistant football coach assessment and plan. The patient is a [...] having previ (more content not included)... Normal [facility] EGD Reporton 04-17-2024 EGD Report [facility] Medical Records Department [address] [place] [address] EGD Report MR#: [id number] Acct: [id number] Name: VIOLET CHIN Rep #: [id number] : 1965 58 From: Alex Howard DO PCP: Dr. Rico Lemus MD Status:ADM IN Patient Name: Violet Chin Procedure Date: 04/17/2024 1:14 PM Date of : 1965 Age: 58 Procedure: Upper GI endoscopy Indications: Epigastric abdominal pain, Abdominal pain in the right upper quadrant, Dysphagia Providers: Alex Howadr DO Medicines: Monitored Anesthesia Care Patient Profile: [...] present medications. Procedure Code(s): --- Professional --- 96918, Esophagogastroduodenoscop y, flexible, transoral; with biopsy, single or multiple CPT copyright 2021 [employer]. All rights reserved. The codes documented in this report are preliminary and upon medical receptionist assistant review may be revised to meet current compliance requirements. Alex Howard DO 04/17/2024 3:56:56 PM This report has been signed electronically. Number of Addenda: 0 Note Initiated On: 04/17/2024 1:14 PM 04/17/24 1557 Date Alex Howard DO Cosigner Signature: Date (if indicated) CC: Dr. Rico Lemus MD; Alex Howard DO Date Dictated: 04/17/24 1314 Date Transcribed: Title Checker: GRISEL Signed Normal [facility] MR/CON.PCM.GIon 04-17-2024 MR/CON.PCM.GI [facility] Medical Records Department [address] [place] [address] Consultation - GI 04/17/24 1315 MR#: [id number] Acct: [id number] Name: VIOLET CHIN Rep #: [id number] : 1965 58 From: Alex Friend DO PCP: Dr. Rico Lemus MD Status:ADM IN [place] [id number] HPI Consult Data Date of Consult: 04/17/24 HPI Narrative Reason for Consultation: Abnormal CT scan HPI Narrative: VIOLET CHIN, is a 58 F with presents to [facility] ER complaining of abdominal pain and fever. [...] on the Right with Numerous Liver Cysts. PENDING SALE TO [facility] Medical History Bleeding tendency Post-menopausal Back pain [...] Reaction Status Date / Time fluoxetine (From [employer]) Allergy Abd Verified 01/06/24 17:00 cramps/diarrhea Surgical [...] full RO (more content not included)... Normal [facility] MR/POSTOP.ANE 04-17-2024 [facility] Department [address] [place] [address] Anesthesia Postop Eval I 04/17/24 1339 MR#: [id number] Acct: [id number] Name: VIOLET CHIN Rep #: [id number] : 1965 58 From: Xavier Carmona MD PCP: Dr. Rico Lemus MD Status:ADM IN Y Race: C Location: [place] [address] Anesthesia: Postop Eval I Current Vital Signs [...] Carmona MD Cosigner Signature: Date CC: Signed [facility] MR/[id number] 04-17-2024 MR/POSTOPAN2 [facility] Medical Records Department [address] [place] [address] Anesthesia Postop Eval II 04/17/24 1744 MR#: [id number] Acct: [id number] Name: VIOLET CHIN Rep #: [id number] : 1965 58 From: Juan Pablo Chairez MD PCP: Dr. Rico Lemus MD Status:ADM IN Y Race: C Location: [place] [address] Anesthesia Postop Eval I Sum Postop Eval [...] MD Cosigner Signature: Date CC: Signed Normal [facility] Magnesiumon 04-17-2024 Magnesium [Mass/Vol] 2.0 mg/dL Normal 1.6-2.6 [facility] Comment on above: Performed By: #### L 501.2300, L500.2500, L501.2170 #### [facility] [address] [place], [place], [address] Phosphoruson 04-17-2024 Phosphate [Mass/Vol] 2.4 mg/dL Low 2.5-4.9 [facility] Comment on above: Performed By: #### L 501.2300, L500.2500, L501.5200 #### [facility] [address] [place], [place], [address] Surgery Specimen Level Gris 04-17-2024 Surgery Specimen Level IV Patient Age/Sex Location Account Attending Physician VIOLET CHIN 58/F MS3 [id number] Dr. Kostas Coffman DO Specimen: [id number] Received: 04/18/24 Status: MALCOLM Stewart Num: [id number] Spec Type: EGD BIOPSY Subm Dr: DO [...] submitted in one cassette. SJ. 04/18/2024 TC:3 CPT:81227 Patient Age/Sex Location Account Attending Physician VIOLET CHIN 58/F MS3 [id number] Dr. Kostas Coffman DO Signed (signature on file) Dr. Talib Booker, 04/19/24 1245 Normal [facility] Comment on above: Performed By: #### P SUIV #### [facility] [address] [place], [place], [address] Thyroid Stim Hormone (TSH)on 04-17-2024 TSH 1.350 uIU/mL Normal 0.358-3.740 [facility] Comment on above: Performed By: #### L 501.2300, L500.2500, L501.5200 #### [facility] [address] [place], [place], [address] 12 Lead EKGon 04-16-2024 12 Lead EKG [facility] Cardiovascular Services [address] [place] [address] 12 Lead EKG 04/16/24 1234 MR#: [id number] Acct: [id number] Name: VIOLET CHIN Rep #: [id number] : 1965 58 From: Joshua Baumann MD [...] ECG Confirmed by BRITTNI CANTRELL, JOSHUA ([id number]), editorial specialist EDMUND VALVERDE ([id number]) on 04/17/2024 1:21:28 PM Referred By: NIKITA Confirmed By:JOSHUA BAUMANN MD 04/17/24 1321 Date Joshua Baumann MD CC: Dr. Rico Lemus MD; Dr. Trenton Hidalgo DO; Dr. Bethel Butterfield DO Signed Normal [facility] Abdomen/Pelvis W IV Cont ONL Yon 04-16-2024 Abdomen/Pelvis W IV Cont ONLY [facility] Imaging Services [address] [place], [place] [address] Abdomen/Pelvis W IV Cont ONLY MR#: [id number] Acct: [id number] Name: VIOLET CHIN Rep #: [id number] : 1965 F 58 From: Corky Gregory PCP: Dr. Rico Lemus MD Status: REG ER Study: Abdomen/Pelvis W IV Cont ONLY Date of Exam: Exam# [id number] Ordering Dr: Bethel Butterfield DO ADDENDUM by Dr. Erwin Osborn MD on 04/16/24 at 1729 ADDENDUM [id number] ADDENDUM: Upon additional review of the images, [...] Lemus MD; Dr. Bethel Butterfield, * Signed [id number] STUDY: CT ABDOMEN AND PELVIS WITH CONTRAST [...] Rico Lemus MD; Dr. Bethel Butterfield DO Title Checker: Signed Normal [facility] BNP,B-Type NATRIURETIC PEPTI Gus 04-16-2024 Natriuretic peptide B (Bld) [Mass/Vol] 134.7 pg/mL High 0-100 [facility] Comment on above: Performed By: #### P SUIV #### [facility] [address] [place], [address] CBC W/Diff, Automatedon 04-07-2023 Absolute Lymph 1.15 X10 3/uL Normal 0.83-4.51 [facility] Comment on above: Performed By: #### P SUIV #### [facility] [address] [place], [address] Absolute Neut 11.5 X10 3/uL High 2.0-7.7 [facility] Comment on above: Performed By: #### P SUIV #### [facility] [address] [place], [address] Basophils/100 WBC (Bld) 0.3 % Normal 0-1 [facility] Comment on above: Performed By: #### P SUIV #### [facility] [address] [place], [address] Eosinophils/100 WBC (Bld) 0.1 % Normal 0-5 [facility] Comment on above: Performed By: #### P SUIV #### [facility] [address] [place], [address] Erythrocyte distribution width (RBC) [Ratio] 13.0 % Normal 11.6-14.6 [facility] Comment on above: Performed By: #### P SUIV #### [facility] [address] [place], [address] Hematocrit (Bld) [Volume fraction] 43.6 % Normal 37-47 [facility] Comment on above: Performed By: #### P SUIV #### [facility] [address] [place], [address] Hemoglobin (Bld) [Mass/Vol] 14.9 g/dL Normal 12.0-15.0 [facility] Comment on above: Performed By: #### P SUIV #### [facility] [address] [place], [address] IG% 0.400 Normal 0.0-0.9 [facility] Comment on above: Result Comment: IG% - Immature Granulocytes (promyelocytes, myelocytes and metamyelocytes) > 1% indicates that a LEFT SHIFT is Present. Performed By: #### P SUIV #### [facility] [address] [place], [address] Lymphocytes/100 WBC (Bld) 8.5 % Low 19-41 [facility] Comment on above: Performed By: #### P SUIV #### [facility] [address] [place], [address] MCH (RBC) [Entitic mass] 30.9 pg Normal 27.0-32.0 [facility] Comment on above: Performed By: #### P SUIV #### [facility] [address] [place], [address] MCHC (RBC) [Mass/Vol] 34.2 g/dL Normal 32-36 [facility] Comment on above: Performed By: #### P SUIV #### [facility] [address] [place], [address] MCV (RBC) [Entitic vol] 90.5 fL Normal 81-99 [facility] Comment on above: Performed By: #### P SUIV #### [facility] [address] [place], [address] Monocytes/100 WBC (Bld) 5.1 % Normal 0-10 [facility] Comment on above: Performed By: #### P SUIV #### [facility] [address] [place], [address] Neutrophils/100 WBC (Bld) 85.6 % High 47-70 [facility] Comment on above: Performed By: #### P SUIV #### [facility] [address] [place], [address] Nucleated RBC (Bld) [#/Vol] 0 10*3/uL Normal 0-5 [facility] Comment on above: Performed By: #### P SUIV #### [facility] [address] [place], [address] Platelet mean volume (Bld) [Entitic vol] 9.9 fL Normal 6.2-12.0 [facility] Comment on above: Performed By: #### P SUIV #### [facility] [address] [place], [address] Platelets (Bld) [#/Vol] 236 10*3/uL Normal 150-450 [facility] Comment on above: Performed By: #### P SUIV #### [facility] [address] [place], [address] RBC (Bld) [#/Vol] 4.82 10*6/uL Normal 4.2-5.4 [facility] Comment on above: Performed By: #### P SUIV #### [facility] [address] [place], [address] RDW SD 42.8 fl Normal 35.1-43.9 [facility] Comment on above: Performed By: #### P SUIV #### [facility] [address] [place], [address] WBC (Bld) [#/Vol] 13.5 10*3/uL High 4.4-11.0 [facility] Comment on above: Performed By: #### P SUIV #### [facility] [address] [place], [address] CTA Chest W/WO Contraston CTA Chest W/WO Contrast [facility] Imaging Services [address] [place] [address] CTA Chest W/WO Contrast MR#: [id number] Acct: [id number] Name: VIOLET CHIN Rep #: [id number] : 1965 F 58 From: Corky Gregory PCP: Dr. Rico Lemus MD Status: [facility] ER Study: CTA Chest W/WO Contrast Date of Exam: 04/16/24 Exam# [id number] Ordering Dr: Bethel Butterfield DO [id number] STUDY: CTA CHEST REASON FOR EXAM: Female, [...] Rico Lemus MD; Dr. Bethel Butterfield DO Title Checker: Signed Normal [facility] Comprehensive Metabolic Prof ilon 04-16-2024 Albumin [Mass/Vol] 3.9 g/dL Normal 3.2-5.0 [facility] Comment on above: Order Comment: 'TROP ' Serial specimen #1, #2 or #3: 1 Performed By: #### P SUIV #### [facility] [address] [place], [address] Albumin/Globulin [Mass ratio] 1.0 {ratio} Normal 0.9-2.4 [facility] Comment on above: Order Comment: 'TROP ' Serial specimen #1, #2 or #3: 1 Performed By: #### P SUIV #### [facility] [address] [place], [address] ALK P 100 U/L Normal 45-117 [facility] Comment on above: Order Comment: 'TROP ' Serial specimen #1, #2 or #3: 1 Performed By: #### P SUIV #### [facility] [address] [place], [address] ALT [Catalytic activity/Vol] 19 U/L Normal 13-56 [facility] Comment on above: Order Comment: 'TROP ' Serial specimen #1, #2 or #3: 1 Performed By: #### P SUIV #### [facility] [address] [place], [address] AST [Catalytic activity/Vol] 22 U/L Normal 15-37 [facility] Comment on above: Order Comment: 'TROP ' Serial specimen #1, #2 or #3: 1 Performed By: #### P SUIV #### [facility] [address] [place], [address] Bilirubin [Mass/Vol] 0.60 mg/dL Normal 0.20-1.00 [facility] Comment on above: Order Comment: 'TROP ' Serial specimen #1, #2 or #3: 1 Result Comment: For patients on eltrombopag therapy, use of Dimension [place] TBIL is not recommended. Performed By: #### P SUIV #### [facility] [address] [place], [address] BUN/CRE 31.8 RATIO High 10-20 [facility] Comment on above: Order Comment: 'TROP ' Serial specimen #1, #2 or #3: 1 Performed By: #### P SUIV #### [facility] [address] [place], [address] CA,Total 10.1 mg/dL Normal 8.5-10.1 [facility] Comment on above: Order Comment: 'TROP ' Serial specimen #1, #2 or #3: 1 Performed By: #### P SUIV #### [facility] [address] [place], [address] Chloride [Moles/Vol] 96 mmol/L Low 98-107 [facility] Comment on above: Order Comment: 'TROP ' Serial specimen #1, #2 or #3: 1 Performed By: #### P SUIV #### [facility] [address] [place], [address] CO2 [Moles/Vol] 27.0 mmol/L Normal 21.0-32.0 [facility] Comment on above: Order Comment: 'TROP ' Serial specimen #1, #2 or #3: 1 Performed By: #### P SUIV #### [facility] [address] [place], [address] Creatinine [Mass/Vol] 0.53 mg/dL Low 0.55-1.02 [facility] Comment on above: Order Comment: 'TROP ' Serial specimen #1, #2 or #3: 1 Result Comment: The validity of the calculated GFR GFRAA in patients over 70 years has not been determined. Clinical correlation is essential. Performed By: #### P SUIV #### [facility] [address] [place], [address] ECRCL 115.87 ml/min Normal [facility] Comment on above: Order Comment: 'TROP ' Serial specimen #1, #2 or #3: 1 Performed By: #### P SUIV #### [facility] [address] [place], [address] EST GFR - AA 151 mL/min Normal >60 [facility] Comment on above: Order Comment: 'TROP ' Serial specimen #1, #2 or #3: 1 Result Comment: Afri can Tristanian GFR Calc Performed By: #### P SUIV #### [facility] [address] [place], [address] GAP 8 Normal 5-15 [facility] Comment on above: Order Comment: 'TROP ' Serial specimen #1, #2 or #3: 1 Performed By: #### P SUIV #### [facility] [address] [place], [address] GFR/1.73 sq M.predicted among non-blacks MDRD (S/P/Bld) [Vol rate/Area] 125 mL/min/{1.73_m2} Normal >60 [facility] Comment on above: Order Comment: 'TROP ' Serial specimen #1, #2 or #3: 1 Result Comment: Non- GFR Calc Performed By: #### P SUIV #### [facility] [address] [place], [address] Globulin (S) [Mass/Vol] 4.0 g/dL Normal 2.2-4.2 [facility] Comment on above: Order Comment: 'TROP ' Serial specimen #1, #2 or #3: 1 Performed By: #### P SUIV #### [facility] [address] [place], [address] Glucose [Mass/Vol] 129 mg/dL High 74-106 [facility] Comment on above: Order Comment: 'TROP ' Serial specimen #1, #2 or #3: 1 Result Comment: Fast ing Glucose result greater than or equal to 126 mg/dL suggests DIABETES MELLITUS per A.D.A. criteria. Performed By: #### P SUIV #### [facility] [address] [place], [address] Potassium [Moles/Vol] 3.5 mmol/L Normal 3.5-5.1 [facility] Comment on above: Order Comment: 'TROP ' Serial specimen #1, #2 or #3: 1 Performed By: #### P SUIV #### [facility] [address] [place], [address] Sodium [Moles/Vol] 131 mmol/L Low 136-145 [facility] Comment on above: Order Comment: 'TROP ' Serial specimen #1, #2 or #3: 1 Performed By: #### P SUIV #### [facility] [address] [place], [place], [address] T PROT 7.9 g/dL Normal 6.4-8.2 [facility] Comment on above: Order Comment: 'TROP ' Serial specimen #1, #2 or #3: 1 Performed By: #### P SUIV #### [facility] [address] [place], [address] Urea nitrogen [Mass/Vol] 17 mg/dL Normal 7-18 [facility] Comment on above: Order Comment: 'TROP ' Serial specimen #1, #2 or #3: 1 Performed By: #### P SUIV #### [facility] [address] [place], [id number] Emergency Department Summary on 04-16-2024 Emergency Department Summary [facility] Medical Records Department [address] [place] [address] Emergency Department Summary 04/16/24 MR#: [id number] Acct: [id number] Name: VIOLET CHIN Rep #: [id number] : 1965 58 From: Bethel Butterfield DO PCP: Dr. Rico Lemus MD Status:ADM IN [place] [id number] Alex Dial MD on 04/17/24 at [address] Erwin Osborn MD on 04/16/24 at 1729 ADDENDUM [id number] ADDENDUM: Upon additional review of the images, [...] use. Patient denies any recent sick contacts. [facility] Medical History (Updated 04/16/24 @ 13:22 by [...] noted Res (more content not included)... Normal [facility] Gallbladderon 04-16-2024 Gallbladder [facility] Imaging Services [address] [place] [address] Gallbladder MR#: [id number] Acct: [id number] Name: VIOLET CHIN Rep #: [id number] : 1965 F 58 From: Erwin Osborn MD PCP: Dr. Rico Lemus MD Status: REG ER Study: Gallbladder Date of Exam: 04/16/24 Exam# [id number] Ordering Dr: Alex Dial MD [id number] STUDY: ABDOMINAL ULTRASOUND - RIGHT UPPER QUADRANT [...] 19:46 EDT Reading Location ID and State: [facility] / [place] Tel , Service support , CC: Dr. Alex Dial MD; Dr. Rico Lemus MD Title Checker: Signed Normal [facility] H AND P Exam - Hospitaliston 04-16-2024 H&P Exam - Hospitalist [facility] Medical Records Department [address] [place] [address] H P Exam - Hospitalist 04/16/24 1901 MR#: [id number] Acct: [id number] Name: VIOLET CHIN Rep #: [id number] : 1965 58 From: Rodney Meyer DO PCP: Dr. Rico Lemus MD Status:ADM IN Location[place] [facility] [id number] HPI - General General Date of Admission: 04/16/24 Date of Service: 04/16/24 Chief Complaint: Abdominal Pain and Fever. HPI Narrative VIOLET CHIN, is a 58 F with a past medical history of essential hypertension, hyperlipidemia, obesity; with BMI of 31.2 this admission, tobacco abuse, cannabis abuse, depression, history of tubal ligation and OA; with back pain due to injury who presents to [facility] ER complaining of abdominal pain and fever. [...] is expected to extend beyond 2 midnights. PENDING SALE TO [facility] Medical History Bleeding tendency Post-menopausal Back pain [...] Reaction Status Date / Time [facility] Allergy Abd Verified 01/06/24 17:00 cramps/diarrhea Surgical [...] 103 Puls (more content not included)... Normal [facility] L501.4020on 04-16-2024 TROPONIN-I HS 5 pg/mL Normal 3.0-54.0 [facility] Comment on above: Order Comment: 'TROP ' Serial specimen #1, #2 or #3: 1 Result Comment: Plea se Note: New Test Units and Gender Specific Reference Ranges. For more information see Policy Stat Procedure [place] High Sensitivity Troponin (TNIH) and attachments. Performed By: #### P SUIV #### [facility] [address] [place], [address] Lipaseon 04-16-2024 Lipase [Catalytic activity/Vol] 30 U/L Normal 13-75 [facility] Comment on above: Order Comment: 'TROP ' Serial specimen #1, #2 or #3: 1 Result Comment: Plea se note: LIPASE revised reference range effective 22. New Lipase methodology. Expected to produce lower values than the previous assay method. NEW Reference Range: 13 - 75 U/L Performed By: #### P SUIV #### [facility] [address] [place], [address] M100.678on 04-16-2024 M100.678 Pending SARS-CoV-2 (COVID 19) Negative INFLUENZA A Negative INFLUENZA B Negative RSV PCR Negative Normal [facility] Comment on above: Performed By: #### L 501.2300, L500.2500, L501.5200 #### [facility] [address] [place], [address] Urinalysis, Completeon 04-16 WBC 0-5 SEEN Normal 0-5 [facility] Comment on above: Order Comment: CLEAN CATCH Performed By: #### P SUIV #### [facility] [address] [place], [address] BILIRUBIN URINE Negative Normal Negative [facility] Comment on above: Order Comment: CLEAN CATCH Performed By: #### P SUIV #### [facility] [address] [place], [address] Clarity (U) Clear Normal Clear [facility] Comment on above: Order Comment: CLEAN CATCH Performed By: #### P SUIV #### [facility] [address] [place], [address] Color (U) Straw Normal Yellow [facility] Comment on above: Order Comment: CLEAN CATCH Performed By: #### P SUIV #### [facility] [address] [place], [address] GLUCOSE, UR Normal Normal Normal [facility] Comment on above: Order Comment: CLEAN CATCH Performed By: #### P SUIV #### [facility] [address] [place], [address] KETONE UR 15 mg/dl Abnormal Negative [facility] Comment on above: Order Comment: CLEAN CATCH Performed By: #### P SUIV #### [facility] [address] [place], [address] LEUK ESTERASE 100 /ul Abnormal Negative [facility] Comment on above: Order Comment: CLEAN CATCH Performed By: #### P SUIV #### [facility] [address] [place], [address] Nitrite Ql (U) Negative Normal Negative [facility] Comment on above: Order Comment: CLEAN CATCH Performed By: #### P SUIV #### [facility] [address] [place], [address] OCCULT BLOOD-UR 25 /ul Abnormal Negative [facility] Comment on above: Order Comment: CLEAN CATCH Performed By: #### P SUIV #### [facility] [address] [place], [address] pH UR 7.0 Normal 5.0 - 8.0 [facility] Comment on above: Order Comment: CLEAN CATCH Performed By: #### P SUIV #### [facility] [address] [place], [address] PROT DIPSTX Negative Normal Negative [facility] Comment on above: Order Comment: CLEAN CATCH Performed By: #### P SUIV #### [facility] [address] [place], [address] SP.GR. DIPSTX 1.010 Normal 1.002-1.030 [facility] Comment on above: Order Comment: CLEAN CATCH Performed By: #### P SUIV #### [facility] [address] [place], [address] UROBILI Normal Normal Normal [facility] Comment on above: Order Comment: CLEAN CATCH Performed By: #### P SUIV #### [facility] [address] [place], [address] BACTERIA 0 SEEN Normal None Seen [facility] Comment on above: Order Comment: CLEAN CATCH Performed By: #### P SUIV #### [facility] [address] [place], [address] EPI,SQUAMOUS 0 SEEN Normal 5-10 [facility] Comment on above: Order Comment: CLEAN CATCH Performed By: #### P SUIV #### [facility] [address] [place], [place], [address] Mucus Ql (Urine sed) 0 SEEN Normal [facility] Comment on above: Order Comment: CLEAN CATCH Performed By: #### P SUIV #### [facility] [address] [place], [address] RBC 0 SEEN Normal 0-5 [facility] Comment on above: Order Comment: CLEAN CATCH Performed By: #### P SUIV #### [facility] [address] [place], [place], [address] Vital Signs Date Time Vital Sign Value Performing Clinician Robert velasco 01-24-2025 14:29-0400 Body height 160.[address] Rico Lemus MD Work Phone: [facility] 12-31-2024 15:55-0400 Body height 162.6 cm Nina Lerner MD Work Phone: [facility] 12-31-2024 15:55-0400 Body mass index (BMI) [Ratio] 34.43 kg/m2 Nina Lerner MD Work Phone: [facility] 12-31-2024 15:55-0400 Body weight 90.99 kg Nina Lerner MD Work Phone: [facility] 12-31-2024 15:55-0400 Diastolic blood pressure 84 mm[Hg] Nina Lerner MD Work Phone: [facility] 12-31-2024 15:55-0400 Heart rate 71 /min Nina Lerner MD Work Phone: [facility] 12-31-2024 15:55-0400 Respiratory rate 19 /min Nina Lerner MD Work Phone: [facility] 12-31-2024 15:55-0400 SaO2% (BldA) [Mass fraction] 98 % Nina Lerner MD Work Phone: [facility] 12-31-2024 15:55-0400 Systolic blood pressure 138 mm[Hg] Nina Lerner MD Work Phone: [facility] 11-08-2024 14:31-0400 Body height 162.6 cm Pacc 1 Work Phone: [facility] 11-08-2024 14:31-0400 Body mass index (BMI) [Ratio] 32.61 kg/m2 Pacc 1 Work Phone: [facility] 11-08-2024 14:31-0400 Body temperature 97 [degF] Pacc 1 Work Phone: [facility] 11-08-2024 14:31-0400 Body weight 86.18 kg Pacc 1 Work Phone: [facility] 11-08-2024 14:31-0400 Diastolic blood pressure 84 mm[Hg] Pacc 1 Work Phone: [facility] 11-08-2024 14:31-0400 Heart rate 81 /min Pacc 1 Work Phone: [facility] 11-08-2024 14:31-0400 Respiratory rate 14 /min Pacc 1 Work Phone: [facility] 11-08-2024 14:31-0400 SaO2% (BldA) [Mass fraction] 97 % Pacc 1 Work Phone: [facility] 11-08-2024 14:31-0400 Systolic blood pressure 140 mm[Hg] Pacc 1 Work Phone: [facility] 11-05-2024 08:57-0400 Body height 157.5 cm John Bradley MD Work Phone: [facility] 11-05-2024 08:57-0400 Body mass index (BMI) [Ratio] 34.71 kg/m2 John Bradley MD Work Phone: [facility] 11-05-2024 08:57-0400 Body weight 86.1 kg John Bradley MD Work Phone: [facility] 11-05-2024 08:57-0400 Diastolic blood pressure 88 mm[Hg] John Bradley MD Work Phone: [facility] 11-05-2024 08:57-0400 Heart rate 65 /min John Bradley MD Work Phone: [facility] 11-05-2024 08:57-0400 Systolic blood pressure 165 mm[Hg] John Brdaley MD Work Phone: [facility] 10-29-2024 15:58-0400 Body mass index (BMI) [Ratio] 34.82 kg/m2 Nina Lerner MD Work Phone: [facility] 10-29-2024 15:58-0400 Body temperature 98.8 [degF] Nina Lerner MD Work Phone: [facility] 10-29-2024 15:58-0400 Body weight 86.36 kg Nina Lerner MD Work Phone: [facility] 10-29-2024 15:58-0400 Heart rate 64 /min Nina Lerner MD Work Phone: [facility] 10-29-2024 15:58-0400 SaO2% (BldA) [Mass fraction] 97 % Nina Lerner MD Work Phone: [facility] 06-28-2024 08:13-0500 Body height 157.5 cm Nina Lerner MD Work Phone: [facility] 06-28-2024 08:13-0500 Body mass index (BMI) [Ratio] 33.32 kg/m2 Nina Lerner MD Work Phone: [facility] 06-28-2024 08:13-0500 Body weight 82.64 kg Nina Lerner MD Work Phone: [facility] 06-28-2024 08:13-0500 Diastolic blood pressure 92 mm[Hg] Nina Lerner MD Work Phone: [facility] 06-28-2024 08:13-0500 Heart rate 63 /min Nina Lerner MD Work Phone: [facility] 06-28-2024 08:13-0500 Respiratory rate 20 /min Nina Lerner MD Work Phone: [facility] 06-28-2024 08:13-0500 SaO2% (BldA) [Mass fraction] 98 % Nina Lerner MD Work Phone: [facility] 06-28-2024 08:13-0500 Systolic blood pressure 158 mm[Hg] Nina Lerner MD Work Phone: [facility] 05-15-2024 15:02-0400 Body mass index (BMI) [Ratio] 31.96 kg/m2 [employer] SET UP OPERATOR Work Phone: [facility] 05-15-2024 15:02-0400 Body weight 81.2 kg [employer]CH[employer].ENG[employer]VER SET UP OPERATOR Work Phone: [facility] 05-15-2024 15:02-0400 Diastolic blood pressure 80 mm[Hg] [employer]CH[employer]ENG[employer]VER SET UP OPERATOR Work Phone: [facility] 05-15-2024 15:02-0400 Heart rate 54 /min [employer]CH[employer].ENGRAVER SET UP OPERATOR Work Phone: [facility] 05-15-2024 15:02-0400 Respiratory rate 18 /min [employer]CH[employer].ENGRAVER SET UP OPERATOR Work Phone: [facility] 05-15-2024 15:02-0400 SaO2% (BldA) [Mass fraction] 98 % [employer]ENGRAVER SET UP OPERATOR Work Phone: [facility] 05-15-2024 15:02-0400 Systolic blood pressure 138 mm[Hg] [employer]CH[employer].ENGRAVER SET UP OPERATOR Work Phone: [facility] 01-17-2024 17:37-0400 Body mass index (BMI) [Ratio] 31.85 kg/m2 Drew Galvan MD Work Phone: [facility] 01-17-2024 17:37-0400 Body temperature 98.4 [degF] Drew Galvan MD Work Phone: [facility] 01-17-2024 17:37-0400 Body weight 80.9 kg Drew Galvan MD Work Phone: [facility] 01-17-2024 17:37-0400 Diastolic blood pressure 78 mm[Hg] Drew Galvan MD Work Phone: [facility] 01-17-2024 17:37-0400 Heart rate 65 /min Drew Galvan MD Work Phone: [facility] 01-17-2024 17:37-0400 Respiratory rate 18 /min Drew Galvan MD Work Phone: [facility] 01-17-2024 17:37-0400 SaO2% (BldA) [Mass fraction] 96 % Drew Galvan MD Work Phone: [facility] 01-17-2024 17:37-0400 Systolic blood pressure 112 mm[Hg] Drew Galvan MD Work Phone: [facility] 11-14-2023 18:37-0400 Body weight 84.73 kg Erick Lemus MD Work Phone: [facility] 11-14-2023 18:37-0400 Diastolic blood pressure 74 mm[Hg] Erick Lemus MD Work Phone: [facility] 11-14-2023 18:37-0400 Heart rate 73 /min Erick Lemus MD Work Phone: [facility] 11-14-2023 18:37-0400 Respiratory rate 16 /min Erick Lemus MD Work Phone: [facility] 11-14-2023 18:37-0400 SaO2% (BldA) [Mass fraction] 96 % Erick Lemus MD Work Phone: [facility] 11-14-2023 18:37-0400 Systolic blood pressure 118 mm[Hg] Erick Lemus MD Work Phone: [facility] 04-13-2023 13:09-0400 Body weight 93.71 kg Erick Lemus MD Work Phone: [facility] 04-13-2023 13:09-0400 Diastolic blood pressure 78 mm[Hg] Erick Lemus MD Work Phone: [facility] 04-13-2023 13:09-0400 Heart rate 73 /min Erick Lemus MD Work Phone: [facility] 04-13-2023 13:09-0400 Respiratory rate 16 /min Erick Lemus MD Work Phone: [facility] 04-13-2023 13:09-0400 SaO2% (BldA) [Mass fraction] 96 % Erick Lemus MD Work Phone: [facility] 04-13-2023 13:09-0400 Systolic blood pressure 118 mm[Hg] Erick Lemus MD Work Phone: [facility] Encounters Encounter Date Encounter Type Care Provider Facility Start: 02-11-2025 End: 02-11-2025 ambulatory NINA ARAGON [facility] Facility:[facility] Start: 01-30-2025 End: 01-30-2025 Subsequent hospital visit by physician [facility] [employer] Work Phone: CT Scan Comment on above: Arrived Adrenal mass (HCC) [ E27.8] Start: 01-27-2025 End: 01-27-2025 Patient encounter procedure Stanley Agrawal [facility] Work Phone: Start: 01-27-2025 End: 01-27-[address] Rico Lemus MD Work Phone: [facility] Work Phone: Start: 01-09-2025 End: 01-09-2025 ambulatory ERICK LEMUS Facility:[facility] Start: 01-07-2025 End: 01-07-2025 Patient encounter procedure Mouna Hirsch MS Work Phone: [facility] Comment on above: Pheochromocytoma of right adrenal gland (Primary Dx) Start: 01-07-2025 End: 01-07-2025 Telemedicine consultation with patient Mouna Hirsch MS Work Phone: [employer] Start: 01-07-2025 End: 01-07-2025 ambulatory ERICK LEMUS Facility:[facility] Start: 12-31-2024 End: 12-31-2024 Patient encounter procedure Nina Lerner MD Work Phone: Endocrinology Comment on above: Mass of both adrenal glands (HCC) (Primary Dx) Start: 12-31-2024 End: 12-31-2024 ambulatory NINA LERNER Facility:[facility] Start: 12-18-2024 End: 12-18-2024 Follow-up encounter Erick Lemus MD Work Phone: [facility] [place] Comment on above: Results Start: 12-18-2024 ambulatory ERICK LEMUS Facility:[facility] Start: 12-18-2024 End: 12-18-2024 Subsequent hospital visit by physician [facility] Comment on above: Abnormal [...] Start: 11-29-2024 End: 11-29-2024 ambulatory ERICK LEMUS Facility:[facility] [facility] Start: 11-28-2024 End: 01-28-2025 Follow-up encounter John Bradley MD Work Phone: MM Provider Adult Start: 11-22-2024 End: 11-22-2024 Telephone encounter John Bradley MD Work Phone: Endocrine Surgery Comment on above: Follow Up Phone Call Start: 11-20-2024 End: 11-21-2024 Evaluation and management of inpatient ERICK LEMUS Facility:[facility] Start: 11-15-2024 End: 11-15-2024 Patient encounter procedure [facility] Work Phone: PULM LAB [facility] Start: 11-15-2024 End: 11-15-2024 Preprocedural examination done [facility] Work Phone: [facility] Start: 11-15-2024 End: 11-15-2024 ambulatory [facility] Work Phone: PULM LAB [facility] Comment on above: Spirometry Start: 11-15-2024 End: 11-15-2024 Subsequent hospital visit by physician [facility] (I-Stat) Work Phone: Cat Scan [...] Encounter for other preprocedural examination ERICK LEMUS [facility] Start: 11-08-2024 End: 11-08-2024 Subsequent hospital visit by physician Awa [facility] Work Phone: Radiology Comment on above: Adrenal mass (HCC) [ E27.8] Start: 11-08-2024 End: 11-08-2024 Admission to establishment [facility] Work Phone: Pre Anesthesia Start: 11-08-2024 End: 11-08-2024 ambulatory GURVINDER GARCIA Facility:[facility] Start: 11-08-2024 End: 11-08-2024 Anesthesia consultation [facility] Work Phone: Pre Anesthesia Comment on above: Pre-operative examin ation (Primary Dx); Adrenal mass (HCC); Essential hypertension; Mixed hyperlipidemia; Smoker; Anxiety with depression; Marijuana use; Obesity, Class I, BMI 30-34.9; Prediabetes; Liver cyst; Polypoid adenoma Start: 11-08-2024 End: 11-08-2024 Preprocedural examination done [facility] Work Phone: [facility] Start: 11-08-2024 End: 11-08-2024 ambulatory JOHN BRADLEY Facility:[facility] Start: 11-05-2024 End: 11-05-2024 Admission to same day surgery center John Bradley MD Work Phone: Endocrine Surgery Comment on above: 11/20/20246031-AO-Rsrly l aprascopic adrenalectomy (Right laprascopic adrenalectomy) Start: [...] Start: 10-29-2024 End: 10-29-2024 ambulatory ERICK LEMUS Facility:[facility] Start: 10-29-2024 End: 10-29-2024 Patient encounter procedure Nina Lerner MD Work Phone: Endocrinology Comment on above: Adrenal nodule (HCC) (Primary Dx) Start: 10-28-2024 End: 10-28-2024 ambulatory ERICK LEMUS Facility:[facility] Start: 10-25-2024 End: 10-25-2024 ambulatory ERICK LEMUS Facility:[facility] Start: 10-19-2024 End: 10-22-2024 ambulatory Erick Lemus MD Work Phone: [facility] [place] Comment on above: Anxiety Start: 10-17-2024 End: 10-18-2024 Follow-up encounter Erick Lemus MD Work Phone: [facility] [place] Start: 10-16-2024 End: 10-16-2024 Telephone encounter Nina Lerner MD Work Phone: Endocrinology Start: 10-14-2024 End: 10-14-2024 Subsequent hospital visit by physician [facility] (I-Stat) Work Phone: Cat Scan Comment on above: 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] Start: 10-14-2024 End: 10-14-2024 ambulatory Erick Lemus MD Work Phone: [facility] [place] Comment on above: Diagnostic Mammogram Start: 10-14-2024 End: 10-14-2024 Telephone encounter Casie Weiss MD Work Phone: Mammography Comment on above: Mammogram Result Lazaro l Back Orders (Lab orders n eeded) Start: 10-11-2024 End: 10-11-2024 Follow-up encounter Erick Lemus MD Work Phone: [facility] [place] Comment on above: Abnormal mammogram ( Primary Dx) Start: 10-11-2024 End: 10-11-2024 ambulatory ERICK LEMUS Facility:[facility] Start: 10-11-2024 End: 10-11-2024 Subsequent hospital visit by physician [facility] Mamm[facility] Comment on above: Encounter for screen ing mammogram for breast cancer [Z12.31] Start: 07-08-2024 End: 07-08-2024 ambulatory ERICK LEMUS Facility:[facility] Start: 07-01-2024 End: 07-01-2024 Refill Erick Lemus MD Work Phone: [facility] [place] Comment on above: Refill Request Start: 06-28-2024 End: 06-28-2024 Refill Erick Lemus MD Work Phone: [facility] [place] Comment on above: Refill Request Mass of both adrenal glands (HCC) (Primary Dx); Hospital discharge follow-up; Adrenal mass 1 cm to 4 cm in diameter (HCC); Disorder of adrenal gland (HCC) Start: 05-28-2024 End: 2024 Telephone encounter Erick Lemus MD Work Phone: [facility] [place] Comment on above: Appointment (Provide r out 05/28/24 due to illness attempted to contact patient to reschedule appt) Start: 05-15-2024 End: 05-15-2024 Patient encounter procedure Aissatou Mac APRN.ENGRAVER SET UP OPERATOR Work Phone: [facility] [place] Comment on above: Hospital discharge f ollow-up (Primary Dx); Mass of both adrenal glands (HCC); Mixed hyperlipidemia; Elevated blood sugar; Adrenal mass 1 cm to 4 cm in diameter (HCC); Hypokalemia Start: 05-15-2024 End: 05-15-2024 ambulatory ERICK LEMUS Facility:[facility] Start: 04-16-2024 ambulatory Rodney Waters ty:[facility] Start: 04-16-2024 End: 04-18-2024 Evaluation and management of inpatient Kostas Coffman Facility:[facility] Start: 01-17-2024 End: 01-17-2024 Office outpatient visit 15 minutes Drew Galvan MD Work Phone: [place] [facility] Comment on above: Laceration of left k nee, subsequent encounter (Primary Dx) Start: 01-17-2024 ambulatory Erick Lemus MD Work Phone: [facility] [place] Start: 01-08-2024 End: 2024 Telephone encounter [facility] MD [facility] Comment on above: Appointment Start: 11-14-2023 End: 11-14-2023 Patient encounter procedure Erick Lemus MD Work Phone: [facility] [place] Comment on above: Anxiety with depress ion (Primary Dx); Essential hypertension; Mixed hyperlipidemia; Obesity (BMI 30-39.9); Tobacco use Start: 10-24-2023 Refill Erick Lemus MD Work Phone: [facility] [place] Comment on above: Refill Request Start: 09-18-2023 ambulatory Erick Lemus MD Work Phone: [facility] [place] Comment on above: Colorectal Screening Start: 09-16-2023 Refill Aissatou Mac APRN.CNP Work Phone: [facility] [place] Comment on above: Refill Request Start: 07-16-2023 Refill Erick Lemus MD Work Phone: [facility] [place] Comment on above: Refill Request Start: 06-19-2023 Refill Erick Lemus MD Work Phone: [facility] [place] Comment on above: Refill Request Start: 06-16-2023 Refill Erick Lemus MD Work Phone: [facility] [place] Comment on above: Refill Request Start: 04-13-2023 End: 04-13-2023 Patient encounter procedure Erick Lemus MD Work Phone: [facility] [place] Comment on above: Annual physical exam (Primary Dx); Anxiety with depression; Essential hypertension; Mixed hyperlipidemia; Obesity (BMI 30-39.9); Tobacco use; Screening for colon cancer; Screening for cervical cancer; Bruising Start: 02-08-2023 ambulatory Erick Lemus MD Work Phone: [facility] [place] Comment on above: No longer insured Start: 03-16-2022 Telephone encounter Aissatou giles AUTOMOTIVE GLASS MECHANIC.ENGRAVER SET UP OPERATOR Work Phone: Gastroenterology Comment on above: CANCELLED ORDER Start: 02-09-2022 ambulatory Erick Lemus MD Work Phone: [facility] [place] Procedures Date Procedure Procedure Detail Performing Clinician Start: 01-30-[address] atten uation skull base mid-thigh John Bradley MD Work Phone: Start: 12-18-2024 End: 12-18-2024 Us breast uni real time with image limited Erick Lemus MD Work Phone: Start: 12-18-2024 Digital breast tomos ynthesis bilateral Erick Lemus MD Work Phone: Start: 11-15-2024 Brncdilat rspse spmt ry pre&post-brncdilat admn Gurvinder Garcia AUTOMOTIVE GLASS MECHANIC.ENGRAVER SET UP OPERATOR Work Phone: Start: 11-08-2024 Radiologic exam ches t 2 views Gurvinder Garcia AUTOMOTIVE GLASS MECHANIC.ENGRAVER SET UP OPERATOR Work Phone: Start: 11-08-2024 Antibody screen DAYO LEMUS Comment on above: Order Comment: Speci men Type: BLOOD SPECIMENOrdering Facility: [facility] Address: [address] [place] [address] Performed By: #### T [id number] ####CC MAIN BLOOD BANKCLIA [id number] [facility] [id number] [place] [address] [place] Start: 10-14-2024 Ct [...] DTaP,Tdap,Td Vaccine (3 - Td or Tdap) [facility] Start: 10-14-2029 Lipid panel Lipid Screening [facility] Start: 03-15-2029 Urine microalbumin profile [facility] Start: 11-22-2027 Diabetes Screening Diabetes Screening [facility] Start: 11-09-2027 Diabetes Screening Diabetes Screening [facility] Start: 10-15-2027 Diabetes Screening Diabetes Screening [facility] Start: 02-04-2026 Lipid 1996 panel - Serum or Plasma Lipid Screening [facility] Start: 02-04-2026 Lipid panel Lipid Screening [facility] Start: 02-04-2026 LIPID SCREEN LIPID SCREEN [facility] Start: 12-18-2025 Screening for malignant neoplasm of breast Mammogram Screening [facility] Start: 11-15-2025 Screening for malignant neoplasm of lung Lung Cancer Screening [facility] Start: 10-11-2025 Screening for malignant neoplasm of breast Mammogram Screening [facility] Start: 06-20-2025 End: 01-17-2026 MG Breast - bilateral Diagnostic MAYITO DIAGNOSTIC BILATERAL Radiology Routine Abnormal mammogram Expected: 06/20/2025, Expires: 01/17/2026 [facility] Work Phone: Comment on above: Expected: 06/20/2025, Expires: Start: 06-20-2025 End: 01-17-2026 US Breast - left limited US BREAST LTD LEFT Radiology Routine Abnormal mammogram Expected: 06/20/2025, Expires: 01/17/2026 [facility] Comment on above: Expected: 06/20/2025, Expires: Start: 06-20-2025 End: 01-17-2026 US Breast - right limited US BREAST LTD RIGHT Radiology Routine Abnormal mammogram Expected: 06/20/2025, Expires: 01/17/2026 [facility] Comment on above: Expected: 06/20/2025, Expires: Start: 05-15-2025 Annual PCP Team Chronic Disease Visit Annual PCP Team Chronic Disease Visit [facility] Start: 04-07-2025 Influenza vaccination Influenza Vaccine (Season Ended) [facility] Start: 03-03-2025 End: 03-03-2025 Patient encounter procedure 03/03/2025 7:00 AM EDT Office Visit [facility] [place] [address] [place] [address] Erick Lemus MD [address] [place] [address] Weight loss Medication Refills [facility] [place] Comment on above: Weight loss Medication Refills Start: 02-11-2025 End: 02-11-2025 Patient encounter procedure 02/11/2025 11:00 AM EDT Office Visit Endocrinology [address] [place] [address] Nina Lerner MD [address] [place] [address] s/p adrenalectomy 6 WEEK F/U Endocrinology Comment [...] 01-16-2025 BP Controlled (<130/80) BP Controlled (<130/80) [facility] Start: 01-09-2025 End: 01-09-2025 ambulatory 01/09/2025 8:30 AM EDT Results Only [place] [facility] Draw Station [address] [place] [address] [place] [facility] Draw Station Start: 01-09-2025 End: 01-09-2025 Patient encounter procedure 01/09/2025 7:00 AM EDT Office Visit [facility] [place] [address] [place] [address] Erick Lemus MD [address] [place] [address] annual physical/vaccines & screenings (see 10/07/24 SHIFTt message) [facility] [place] Comment on above: annual physical/vaccines & screenings (s ee 10/07/24 SHIFTt message) Start: 01-07-2025 End: 04-08-2025 [facility] INV[facility]AE HEREDITARY DIAGNOSTIC CANCER PANEL [facility] HEREDITARY DIAGNOSTIC CANCER PANEL Lab Routine Pheochromocytoma of right adrenal gland Expected: 01/07/2025, Expires: 04/08/2025 [facility] Work Phone: Comment on above: Expected: 01/07/2025, Expires: Start: 01-07-2025 End: 01-07-2025 Patient encounter procedure 01/07/2025 11:00 AM EDT [facility] [address] [place] [address] Mouna Hirsch, MS [facility] [address] [place] [address] 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] [facility] Comment on above: 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] Start: 12-31-2024 End: 12-31-2024 Patient encounter procedure 12/31/2024 4:00 PM EDT Office Visit Endocrinology [address] [place] [address] Nina Lerner MD [address] [place] [address] 2 MTH F/U Endocrinology Comment on above: 2 MTH F/U Start: 12-18-2024 End: 12-18-2024 Patient encounter procedure Mammogram Comment on above: Comp-MAYITO DIAGNOSTIC BILAT CB PER CP US BREAST LTD RIGHT CB PER CP Start: 12-16-2024 End: 12-16-2024 Patient encounter procedure 12/16/2024 2:30 PM EDT Appointment Molecular Imaging [address] [place] [address] Adrenal mass (HCC) [E27.8]; 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]; Adrenal nodule (HCC) [E27.9] Molecular Imaging Comment on above: Adrenal mass (HCC) [E27.8]; 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]; Adrenal nodule (HCC) [E27.9] Start: 12-16-2024 End: 12-16-2024 Patient encounter procedure 12/16/2024 11:30 AM EDT Appointment Molecular Imaging [address] [place], [place] [id number] Adrenal mass (HCC) [E27.8]; Disorder of adrenal [...] day surgery center 12/05/2024 3:[address] [facility] Endocrine Surgery [address] [place] [address] John Bradley MD [address] [place] [address] POST OP Endocrine Surgery Comment on above: POST OP Start: 11-26-2024 End: 11-26-2024 Patient encounter procedure 11/26/2024 9:20 AM EDT Office Visit Endocrinology [address] [place] [address] Nina Lerner MD [address] [place] [address] 6 wk f/u (soonest, should be 08/23/24) Endocrinology Comment on above: 6 wk f/u (soonest, should be 08/23/24) Start: 11-20-2024 End: 11-20-2024 Admission to same day surgery center 11/20/2024 12:41 PM EDT - 11/20/2024 4:41 PM EDT Surgery Admitting [address] [place] [address] John Bradley MD [address] [place] [address] LAPAROSCOPIC ADRENALECTOMY Admitting Comment on above: LAPAROSCOPIC ADRENALECTOMY Start: 11-20-2024 End: 11-20-2024 Laparoscopy adrenalectomy prtl/compl tabdl LAPAROSCOPIC ADRENALECTOMY Adrenal mass (HCC) 11/20/2024 12:41 PM EDT [facility] Start: 11-20-2024 Subsequent hospital visit by physician Admitting Comment on above: Adrenal mass (HCC) [E27.8] Start: 11-15-2024 End: 11-15-2024 ambulatory 11/15/2024 2:00 PM EDT Procedure PULM LAB [facility] [address] [place] [address] Wstr, [facility] [address] [place] [address] Dx: Pre-operative examination [Z01.818] PULM LAB [facility] Comment on above: Dx: Pre-operative examination [Z01.818] Start: 11-15-2024 End: 11-15-2024 Patient encounter procedure 11/15/2024 1:00 PM EDT Appointment Cat Scan [address] [place] [address] 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] Cat Scan Comment on above: 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] Start: 11-13-2024 Annual PCP Team Chronic Disease Visit Annual PCP Team Chronic Disease Visit [facility] Start: 11-13-2024 BP Controlled (<130/80) BP Controlled (<130/80) [facility] Start: 11-08-2024 End: 12-08-2025 SPIROMETRY WITH DILATOR IF OBSTRUCTED SPIROMETRY WITH DILATOR IF OBSTRUCTED PFT Routine Pre-operative examination Expected: 11/08/2024, Expires: 12/08/2025 [facility] Work Phone: Comment on above: Expected: 11/08/2024, Expires: Start: 11-05-2024 End: 02-04-2025 Basic metabolic 2000 panel - Serum or Plasma BASIC METABOLIC PANEL Lab Routine Adrenal mass (HCC) Expected: 11/05/2024, Expires: 02/04/2025 [facility] Work Phone: Comment on above: Expected: 11/05/2024, Expires: Start: 11-05-2024 End: 02-04-2025 CBC W Auto Differential panel - Blood COMPLETE BLOOD COUNT AND DIFFERENTIAL Lab Routine Adrenal mass (HCC) Expected: 11/05/2024, Expires: 02/04/2025 [facility] Comment on above: Expected: 11/05/2024, Expires: Start: 11-05-2024 End: 02-04-2025 CONFIRM BLOOD TYPE CONFIRM BLOOD TYPE Blood Bank Routine Adrenal mass (HCC) Expected: 11/05/2024 (Approximate), Expires: 02/04/2025 [facility] Comment on above: Expected: 11/05/2024 (Approximate), Expi res: 02/04/2025 Start: 11-05-2024 End: 02-04-2025 TYPE AND SCREEN,30 DAY TYPE AND SCREEN,30 DAY Blood Bank Routine Adrenal mass (HCC) Expected: 11/05/2024, Expires: 02/04/2025 [facility] Comment on above: Expected: 11/05/2024, Expires: Start: 11-05-2024 End: 11-05-2024 Patient encounter procedure 11/05/2024 9:00 AM EDT Office Visit Endocrine Surgery [address] [place] [address] John Bradley MD [address] [place] [address] INTAKE PENDING--Adrenal nodule (HCC) [E27.9] Endocrine Surgery Comment on above: INTAKE PENDING--Adrenal nodule (HCC) [E2 7.9] Start: 10-29-2024 End: 10-29-2024 Patient encounter procedure 10/29/2024 4:00 PM EDT Office Visit Endocrinology [address] [place] [address] Nina Lerner MD [address] [place] [address] 6 wk f/u *review CT 10/22/24 Endocrinology Comment on above: 6 wk f/u *review CT 10/22/24 Start: 10-14-2024 End: 10-14-2024 ambulatory 10/14/2024 4:30 PM EDT Results Only [place] [facility] Laboratory [address] [place] [address] [place] [facility] Laboratory Start: 10-14-2024 End: 10-14-2024 Patient encounter procedure 10/14/2024 3:00 PM EDT Appointment Cat Scan [address] [place] [address] 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] Cat Scan Comment on above: 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] Start: 10-14-2024 Subsequent hospital visit by physician 10/14/2024 2:51 PM EDT Hospital Encounter Cat Scan [address] [place] [address] 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] Cat Scan Comment on above: 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] Start: 10-14-2024 End: 01-13-2025 Hemoglobin A1c in Blood [facility] Work Phone: Comment on above: Expected: 10/14/2024, Expires: Start: 10-14-2024 End: 01-13-2025 LIPID PANEL, NONFASTING [facility] Comment on above: Expected: 10/14/2024, Expires: Start: 09-24-2024 End: 09-24-2024 Patient encounter procedure 09/24/2024 2:20 PM EST Office Visit Endocrinology [address] [place] [address] Nina Lerner MD [address] [place] [address] 6 wk f/u (soonest, should be 08/08/24) Endocrinology Comment on above: 6 wk f/u (soonest, should be 08/08/24) Start: 07-08-2024 End: 07-08-2024 Patient encounter procedure Financial Clearance Phone Screening Comment on above: Financial Clearance 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] Start: 06-28-2024 End: 09-27-2024 ALDOSTERONE/DIRECT RENIN RATIO ALDOSTERONE/DIRECT RENIN RATIO Lab Routine Mass of both adrenal glands (HCC) Expected: 06/28/2024, Expires: 09/27/2024 [facility] Comment on above: Expected: 06/28/2024, Expires: Start: 06-28-2024 End: 09-27-2024 CATECHOLAMINES FRACTIONATED, URINE FREE CATECHOLAMINES FRACTIONATED, URINE FREE Lab Routine Mass of both adrenal glands (HCC) Expected: 06/28/2024, Expires: 09/27/2024 [facility] Comment on above: Expected: 06/28/2024, Expires: Start: 06-28-2024 End: 09-27-2024 Corticotropin [Mass/volume] in Plasma ACTH BLD Lab Routine Mass of both adrenal glands (HCC) Expected: 06/28/2024, Expires: 09/27/2024 [facility] Comment on above: Expected: 06/28/2024, Expires: Start: 06-28-2024 End: 09-27-2024 Cortisol [Mass/volume] in Serum or Plasma --post dose dexamethasone CORTISOL SUPRES POST Lab Routine Mass of both adrenal glands (HCC) Expected: 06/28/2024, Expires: 09/27/2024 [facility] Comment on above: Expected: 06/28/2024, Expires: Start: 06-28-2024 End: 09-27-2024 DEXAMETHASONE DEXAMETHASONE Lab Routine Mass of both adrenal glands (HCC) Expected: 06/28/2024, Expires: 09/27/2024 [facility] Comment on above: Expected: 06/28/2024, Expires: Start: 06-28-2024 End: 09-27-2024 DHEA-S BLD DHEA-S BLD Lab Routine Mass of both adrenal glands (HCC) Expected: 06/28/2024, Expires: 09/27/2024 [facility] Work Phone: Comment on above: Expected: 06/28/2024, Expires: Start: 06-28-2024 End: 09-27-2024 Potassium [Moles/volume] in Serum or Plasma POTASSIUM Lab Routine Mass of both adrenal glands (HCC) Expected: 06/28/2024, Expires: 09/27/2024 [facility] Comment on above: Expected: 06/28/2024, Expires: Start: 06-28-2024 End: 06-28-2024 Patient encounter procedure 06/28/2024 8:00 AM EST Office Visit Endocrinology [address] [place], [place] [id number] Nina Lerner MD [address] [place], [place] [id number] 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]; [...] EDT Office Visit [facility] [place] [address] [place], [place] [address] Erick Lemus MD [address] [place], [place] [id number] Annual Exam [facility] [place] Comment on above: Annual Exam Start: 05-15-2024 End: 08-14-2024 Comprehensive metabolic 2000 panel - Serum or Plasma COMPREHENSIVE METABOLIC PANEL Lab Routine Hypokalemia Expected: 05/15/2024, Expires: 08/14/2024 [facility] Comment on above: Expected: 05/15/2024, Expires: Start: 05-15-2024 End: 08-14-2024 Hemoglobin A1c in Blood HEMOGLOBIN A1C Lab Routine Elevated blood sugar Expected: 05/15/2024, Expires: 08/14/2024 [facility] Comment on above: Expected: 05/15/2024, Expires: Start: 05-15-2024 End: 08-14-2024 Lipid 1996 panel - Serum or Plasma LIPID PANEL BASIC Lab Routine Mixed hyperlipidemia Expected: 05/15/2024, Expires: 08/14/2024 [facility] Work Phone: Comment on above: Expected: 05/15/2024, Expires: Start: 04-13-2024 ANNUAL PCP TEAM CHRONIC DISEASE VISIT ANNUAL PCP TEAM CHRONIC DISEASE VISIT [facility] Start: 04-13-2024 BP CONTROLLED (<130/80) BP CONTROLLED (<130/80) [facility] Start: 04-13-2024 Covid-19 Vaccine (3 - 2023-24 season) Covid-19 Vaccine (3 - 2022-24 season) [facility] Comment on above: Postponed from 04/07/2023 (Declined at t his time) Start: 04-13-2024 COVID-19 VACCINE (3 - Pfizer series) COVID-19 VACCINE (3 - Pfizer series) [facility] Comment on above: Postponed from 06/09/2021 (Declined at t his time) Start: 04-13-2024 HEPATITIS B (1 of 3 - 3-dose series) HEPATITIS B (1 of 3 - 3-dose series) [facility] Comment on above: Postponed from 1965 (Declined at t his time) Start: 04-13-2024 Hepatitis B Vaccine (1 of 3 - 19+ 3-dose series) Hepatitis B Vaccine (1 of 3 - 19+ 3-dose series) [facility] Comment on above: Postponed from 1984 (Declined at t his time) Start: 04-13-2024 Hepatitis B Vaccine (1 of 3 - 3-dose series) Hepatitis B Vaccine (1 of 3 - 3-dose series) [facility] Comment on above: Postponed from 1965 (Declined at t his time) Start: 04-13-2024 HEPATITIS C SCREENING HEPATITIS C SCREENING [facility] Comment on above: Postponed from 1983 (Declined at t his time) Start: 04-13-2024 Hepatitis C screening Hepatitis C Screening [facility] Comment on above: Postponed from 1983 (Declined at t his time) Start: 04-13-2024 HIV SCREENING HIV SCREENING [facility] Comment on above: Postponed from 1983 (Declined at t his time) Start: 04-13-2024 HIV screening HIV Screening [facility] Comment on above: Postponed from 1983 (Declined at t his time) Start: 04-13-2024 HPV TESTING HPV TESTING [facility] Comment on above: Postponed from 1995 (Declined at t his time) Start: 04-13-2024 PAP TESTING PAP TESTING [facility] Comment on above: Postponed from 1986 (Declined at t his time) Start: 04-13-2024 PNEUMOCOCCAL (2 - PCV) PNEUMOCOCCAL (2 - PCV) [facility] Comment on above: Postponed from 03/15/2020 (Declined at t his time) Start: 04-13-2024 [facility] Comment on above: Postp[facility] from 03/15/2020 (Declined at t his time) Start: 04-13-2024 Screening for malignant neoplasm of cervix [facility] Comment on above: Postponed from 1995 (Declined at t his time) Postponed from 08/27 (Declined at this time) Start: 04-13-2024 SHINGRIX VACCINE (1 of 2) SHINGRIX VACCINE (1 of 2) [facility] Comment on above: Postponed from 2015 (Declined at t his time) Start: 04-07-2024 Covid-19 Vaccine () Covid-19 Vaccine () [facility] Start: 04-07-2024 Influenza vaccination [facility] Start: 02-05-2024 DIABETES SCREEN DIABETES SCREEN [facility] Start: 02-05-2024 Diabetes Screening Diabetes Screening [facility] Start: 02-04-2024 Influenza vaccination [facility] Comment on above: Postponed from 04/07/2023 (Declined at t his time) Start: 11-14-2023 End: 02-13-2024 Comprehensive metabolic 2000 panel - Serum or Plasma COMP METABOLIC PANEL Lab Routine Essential hypertension Expected: 11/14/2023, Expires: 02/13/2024 [facility] Work Phone: Comment on above: Expected: 11/14/2023, Expires: 4 Start: 04-13-2023 End: 06-13-2023 25-hydroxyvitamin D3 [Mass/volume] in Serum or Plasma VITAMIN D 25 HYDROXY Lab Routine Annual physical exam Anxiety with depression Expected: 04/13/2023, Expires: 06/13/2023 [facility] Work Phone: Comment on above: Expected: 04/13/2023, Expires: 3 Start: 04-13-2023 End: 06-13-2023 CBC W Auto Differential panel - Blood CBC + DIFF Lab Routine Annual physical exam Expected: 04/13/2023, Expires: 06/13/2023 [facility] Work Phone: Comment on above: Expected: 04/13/2023, Expires: 3 Start: 04-13-2023 End: 06-13-2023 Comprehensive metabolic 2000 panel - Serum or Plasma COMP METABOLIC PANEL Lab Routine Annual physical exam Expected: 04/13/2023, Expires: 06/13/2023 [facility] Work Phone: Comment on above: Expected: 04/13/2023, Expires: 3 Start: 04-13-2023 End: 06-13-2023 Hemoglobin A1c in Blood HGB A1C Lab Routine Annual physical exam Expected: 04/13/2023, Expires: 06/13/2023 [facility] Work Phone: Comment on above: Expected: 04/13/2023, Expires: 3 Start: 04-13-2023 End: 06-13-2023 LIPID PANEL, NONFASTING LIPID PANEL, NONFASTING Lab Routine Annual physical exam Expected: 04/13/2023, Expires: 06/13/2023 [facility] Work Phone: Comment on above: Expected: 04/13/2023, Expires: 3 Start: 04-13-2023 End: 06-13-2023 Thyrotropin [Units/volume] in Serum or Plasma TSH BLD Lab Routine Annual physical exam Expected: 04/13/2023, Expires: 06/13/2023 [facility] Work Phone: Comment on above: Expected: 04/13/2023, Expires: 3 Start: 04-07-2023 Influenza vaccination INFLUENZA (#1) [facility] Start: 02-18-2023 ANNUAL PCP TEAM CHRONIC DISEASE VISIT ANNUAL PCP TEAM CHRONIC DISEASE VISIT [facility] Start: 02-18-2023 BP CONTROLLED (<130/80) BP CONTROLLED (<130/80) [facility] Start: 04-07-2022 Influenza vaccination INFLUENZA (#1) [facility] Start: 02-04-2022 ANNUAL PCP TEAM CHRONIC DISEASE VISIT ANNUAL PCP TEAM CHRONIC DISEASE VISIT [facility] Start: 09-14-2021 COVID-19 VACCINE (3 - Booster for Pfizer series) COVID-19 VACCINE (3 - Booster for Pfizer series) [facility] Start: 06-09-2021 COVID-19 VACCINE (3 - Booster for Pfizer series) COVID-19 VACCINE (3 - Booster for Pfizer series) [facility] Start: 06-09-2021 COVID-19 VACCINE (3 - Pfizer series) COVID-19 VACCINE (3 - Pfizer series) [facility] Start: 03-15-2020 PNEUMOCOCCAL (2 - PCV) PNEUMOCOCCAL (2 - PCV) [facility] Start: 03-15-2020 Pneumococcal vaccination Pneumococcal Vaccine (2 of 2 - PCV) [facility] Start: 03-15-2020 Pneumococcal Vaccine: 50+ (2 of 2 - PCV) Pneumococcal Vaccine: 50+ (2 of 2 - PCV) [facility] Start: 2015 Influenza vaccination LUNG CANCER SCREENING [facility] Start: 2015 Screening for malignant neoplasm of lung Lung Cancer Screening [facility] Start: 2015 SHINGRIX VACCINE (1 of 2) SHINGRIX VACCINE (1 of 2) [facility] Start: 2010 COLOGUARD (FIT-DNA) COLOGUARD (FIT-DNA) [facility] Start: 2010 Colonoscopy COLONOSCOPY [facility] Start: 2010 COLORECTAL CANCER SCREENING COLORECTAL CANCER SCREENING [facility] Start: [address] COLONOGRAPHY [facility] Start: 2010 FECAL OCCULT BLOOD FECAL OCCULT BLOOD [facility] Start: 2010 Screening for malignant neoplasm of colon [facility] Start: 2010 SIGMOIDOSCOPY SIGMOIDOSCOPY [facility] Start: 2007 PAP TESTING PAP TESTING [facility] Start: 2005 Mammography [facility] Start: 2005 Screening for malignant neoplasm of breast Mammogram Screening [facility] Start: 1995 HPV TESTING HPV TESTING [facility] Start: 1986 PAP TESTING PAP TESTING [facility] Start: 1986 Screening for malignant neoplasm of cervix Cervical Cancer Screening [facility] Start: 1984 Hepatitis B Vaccine (1 of 3 - 19+ 3-dose series) Hepatitis B Vaccine (1 of 3 - 19+ 3-dose series) [facility] Start: 1983 BP CONTROLLED (<130/80) BP CONTROLLED (<130/80) [facility] Start: 1983 HEPATITIS C SCREENING HEPATITIS C SCREENING [facility] Start: 1983 Hepatitis C screening Hepatitis C Screening [facility] Start: 1983 HIV SCREENING HIV SCREENING [facility] Start: 1983 HIV screening HIV Screening [facility] Start: 1965 HEPATITIS B (1 of 3 - 3-dose series) HEPATITIS B (1 of 3 - 3-dose series) [facility] COLOGUARD COLOGUARD Lab Ro utine Screening for colon cancer Ordered: 09/19/2023 [facility] Work Phone: Comment on above: Ordered: 09/19/2023 CREATININE, 24 HOUR URINE CREATININE, 24 HOUR URINE Lab Routine Mass of both adrenal glands (HCC) Ordered: 06/28/2024 [facility] Comment on above: Ordered: 06/28/2024 End: 07-28-2025 CT Adrenal gland WO and W contrast IV CT ADRENAL WO/W IVCON Radiology Routine Disorder of adrenal gland (HCC) 1 Occurrences starting 06/28/2024 until 07/28/2025 [facility] Comment on above: 1 Occurrences starting 06/28/2024 until 07/28/2025 End: 12-05-2025 CT Chest W contrast IV CT CHEST W IVCON Radiology Routine Disorder of adrenal gland (HCC) 1 Occurrences starting 11/05/2024 until 12/05/2025 [facility] Comment on above: 1 Occurrences starting 11/05/2024 until 12/05/2025 CT Chest W contrast IV CT CHEST W IVCON Radiology Routine Disorder of adrenal gland (HCC) 11/15/2024 1:32 PM EDT [facility] Work Phone: End: 02-15-2025 DBT Breast - bilateral screening MAYITO SCREENING W GERALD Radiology Routine Encounter for screening mammogram for breast cancer 1 Occurrences starting 01/17/2024 until 02/15/2025 [facility] Work Phone: Comment on above: 1 Occurrences starting 01/17/2024 until 02/15/2025 End: 11-05-2025 ECG COMPLETE ECG COMPLETE ECG Routine Adrenal mass (HCC) 1 Occurrences starting 11/05/2024 until 11/05/2025 [facility] Comment on above: 1 Occurrences starting 11/05/2024 until 11/05/2025 Laparoscopy adrenalectomy prtl/compl tabdl LAPAROSCOPIC ADRENALECTOMY Adrenal mass (HCC) [facility] End: 03-09-2024 MAYITO SCREENING MAYITO SCREENING Radiology Routine Encounter for screening mammogram for breast cancer 1 Occurrences starting 02/08/2023 until 03/09/2024 [facility] Work Phone: Comment on above: 1 Occurrences starting 02/08/2023 until 03/09/2024 METANEPHRINES 24H UR METANEPHRIN ES 24H UR Lab Routine Mass of both adrenal glands (HCC) Ordered: 06/28/2024 [facility] Comment on above: Ordered: 06/28/2024 End: 11-10-2025 MG Breast - bilateral Diagnostic MAYITO DIAGNOSTIC BILATERAL Radiology Routine Abnormal mammogram 1 Occurrences starting 10/11/2024 until 11/10/2025 [facility] Work Phone: Comment on above: 1 Occurrences starting 10/11/2024 until 11/10/2025 REFER FOR ADMIT INTERVIEW REFER FOR ADMIT INTERVIEW Procedures Routine Adrenal mass (HCC) Ordered: 11/05/2024 [facility] Comment on above: Ordered: 11/05/2024 End: 03-11-2023 Screening mammography bi 2-view breast inc cad MAYITO SCREENING Radiology Routine Encounter for screening mammogram for breast cancer 1 Occurrences starting 02/09/2022 until 03/11/2023 [facility] Work Phone: Comment on above: 1 Occurrences starting 02/09/2022 until 03/11/2023 SPIROMETRY WITH DILA TOR IF OBSTRUCTED SPIROMETRY WITH DILATOR IF OBSTRUCTED PFT Routine Pre-operative examination 11/15/2024 1:43 PM EDT [facility] Work Phone: URINE FREE CORTISOL BY LC-MS/MS URINE FREE CORTISOL BY LC-MS/MS Lab Routine Mass of both adrenal glands (HCC) Ordered: 01/01/2025 [facility] Work Phone: Comment on above: Ordered: 01/01/2025 End: 11-10-2025 US Breast - left limited US BREAST LTD LEFT Radiology Routine Abnormal mammogram 1 Occurrences starting 10/11/2024 until 11/10/2025 [facility] Comment on above: 1 Occurrences starting 10/11/2024 until 11/10/2025 End: 11-10-2025 US Breast - right limited US BREAST LTD RIGHT Radiology Routine Abnormal mammogram 1 Occurrences starting 10/11/2024 until 11/10/2025 [facility] Comment on above: 1 Occurrences starting 10/11/2024 until 11/10/2025 [facility] Immunizations Immunization Date Immunization Notes Care Provider Fa cility 01-06-2024 tetanus toxoid, redu becki diphtheria toxoid, and acellular pertussis vaccine, adsorbed Dr. Rico Lemus MD Work Phone: [facility] 04-14-2021 COVID-19 vaccine, ag e 12+ yr (PFIZER-BIONTECH - PURPLE TOP) Erick Lemus MD Work Phone: [facility] 02-04-2021 COVID-19 vaccine, ag e 12+ yr (PFIZER-BIONTECH - PURPLE TOP) Erick Lemus MD Work Phone: [facility] 03-15-2019 pneumococcal polysaccharide vaccine, 23 valent Erick Lemus MD Work Phone: [facility] 03-15-2019 tetanus toxoid, redu becki diphtheria toxoid, and acellular pertussis vaccine, adsorbed Erick Lemus MD Work Phone: [facility] 06-16-2017 influenza, injectabl e, quadrivalent, contains preservative Erick Lemus MD Work Phone: [facility] 06-16-2017 influenza, injectabl e, quadrivalent, preservative free Dr. Rico Lemus MD Work Phone: [facility] 06-16-2017 influenza virus vaccine, unspecified formulation Erick Lemus MD Work Phone: [facility] Payers Date Payer Category Payer [facility] [id number] 2024 Unknown [id number] 2024 Self-pay 2016 Unknown GENE BLUE CARD PPO OOS [id number] 2016-Present [phone] [address] [place] [address] PPO [id number] 2016 Unknown [id number] 2016 Unknown [id number] Unknown [id number] Unknown [id number] Unknown [id number] Unknown [id number] Unknown [id number] 462 Unknown [id number] 462 Unknown [id number] 462 Unknown [id number] Unknown [id number] Social History Date Type Detail Facility Start: 06-16-2017 End: 11-08-2024 Tobacco smoking status INIS Smokes tobacco daily [facility] History of tobacco use Cigarette Smoker C [facility] Start: 06-16-2017 End: 04-06-2023 Cigarettes smoked current (pack per day) - Reported 1 [facility] Start: 06-16-2017 End: 11-08-2024 Tobacco use and exposure Smokeless tobacco non-user [facility] Start: 02-05-2021 End: 11-11-2024 Alcohol intake Current non-drinker of alcohol (finding) [facility] Start: 1965 Sex Assigned At Not on file C [facility] Start: 1965 Sex Assigned At Female C [facility] Start: 02-18-2022 End: 04-06-2023 Tobacco use panel [facility] Adult Depression Scr eening Assessment 1 [facility] Start: 02-08-2023 Gender identity Identifies as female gender (finding) [facility] Start: 02-08-2023 Sexual orientation Heterosexual (fin ding) [facility] Do you belong to any clubs or organizations such as [employer] groups, [employer], Cit[employer] or athle[employer]EMO Equipment groups, or school groups? No [facility] Are you now , , , , never or living with a partner? [facility] How often to you hav e a drink containing alcohol? Monthly or less [facility] How many standard dr inks containing alcohol do you have on a typical day? 3 or 4 [facility] How often do you hav e 6 or more drinks on 1 occasion? Never [facility] Do you feel stress - tense, restless, nervous, or anxious, or unable to sleep at night because your mind is troubled all the time - these days [OSQ] To some extent [facility] (I/We) worried whejoseph er (my/our) food would run out before (I/we) got money to buy more. Never true [facility] Do you belong to any clubs or organizations such as [employer] groups, [employer], [employer] or [employer]O Equipment groups, or school groups? Yes [facility] How hard is it for y ou to pay for the very basics like food, housing, medical care, and heating Not very hard [facility] History of tobacco use Passive smoker [facility] Start: 11-08-2024 Tobacco Comment 12 cigarettes/ DAY C [facility] Start: 12-31-2024 Tobacco Comment 10-12 cigarettes/day [facility] Functional Status Date Assessment Result Facility 11-21-2024 Are you deaf, or do you have serious difficulty hearing Yes 11/21/2024 11:08 AM Carrie Rutledge RN Yes [facility] 11-21-2024 Are you blind, or do you have serious difficulty seeing, even when wearing glasses Yes 11/21/2024 11:08 AM EDT Carrie Oreilly RN Yes [facility] 11-21-2024 Do you have serious difficulty walking or climbing stairs Yes 11/21/2024 11:08 AM EDT Carrie Oreilly RN Yes [facility] 11-21-2024 Do you have difficul ty dressing or bathing Yes 11/21/2024 11:08 AM EDT Carrie Oreilly, TIMBO Yes [facility] 11-21-2024 Because of a physica l, mental, or emotional condition, do you have difficulty doing errands alone such as visiting a physician's office or shopping Yes 11/21/2024 11:08 AM Carrie Rutledge RN Yes [facility] Mental Status Date Assessment Result Facility 11-21-2024 Because of a physica l, mental, or emotional condition, do you have serious difficulty concentrating, remembering, or making decisions No 11/21/2024 11:08 AM Carrie Rutledge RN No [facility] Clinical Notes 03-16-2022 to 01-30-2025 Jessee [...] PATIENT PRESENTS WITH AN IMPLANTABLE OR ATTACHED CHAIR TRIMMER: No CREATININE: Creatinine Date Value Ref Range [...] DIAGNOSTIC CT PERFORMED: No IV SITE: Ambulatory: MA only - direct IV injection in the Left antecubital site POST EXAM PIV STATUS: Not applicable PROCEDURE TYPE: NM INJECT: PET/CT BODY SCAN. 4.2 mCi [id number]. Administered By: JM . No other medications [...] AM PAGER/CONTACT #: documented in this encounter [facility] 01-30-2025 Note HNO ID: [id number] Author: JESSEE WING RT(R) Service: Radiology Author [...] PATIENT PRESENTS WITH AN IMPLANTABLE OR ATTACHED CHAIR TRIMMER: No CREATININE: Creatinine Date Value Ref Range [...] DIAGNOSTIC CT PERFORMED: No IV SITE: Ambulatory: MA only - direct IV injection in the Left antecubital site POST EXAM PIV STATUS: Not applicable PROCEDURE TYPE: NM INJECT: PET/CT BODY SCAN. 4.2 mCi [id number]. Administered By: JM . No other medications given.. ADMINISTRATION TIME: 0700 PATIENT DISCHARGED TO: Ambulatory patient, left MA department area. Is this a therapy: No A Diagnostic radioactive procedure has taken place, with no further precautions necessary other than routine body substance precautions. More information regarding radiation safety can be found using this link: [email or web address] SIGNATURE: RT Danii(R) PATIENT NAME: Violet Chin DATE: January 30, 2025 TIME: 7:11 AM PAGER/CONTACT #: [facility] 01-27-2025 Progress note [facility] 01-27-2025 Progress note Note Date/Time January 27, 2025 3:29pm [facility] [address], [address] [place] [address] OFFICE VISIT Date of Service: 01/27/25 MR#: [id number] Acct: [id number] Name: VIOLET CHIN Rep #: [id number] Provider: MIRTA Thakkar Age/Sex: 59/F Location: [facility] Status: Signed Intake Vital Signs 04/17/24 12:39 01/24/25 14:29 Height 5 ft 3 in 5 ft 3 in Intake Visit Reasons: PE NON DOT PHYSICAL/ROSA BRUSH Accompanied by: Self Allergies fluoxetine (From [employer]) Allergy (Verified 01/27/25 15:26) Abd cramps/diarrhea Medications [...] Cosigner Signature: Date (if applicable) CC: ~ [place] [employer] Work Phone: 1(144) 980-764806-03-2025 NoteHNO ID: [id number] Author: MOUNA HIRSCH MS Service: ? Author Type: Genetic Counselor Type: Progress Notes Filed: 01/07/2025 15:04 Note Text: [facility] Department of Medical Genetics Consultation Note Genetic Counselor: Mouna Hirsch MS, [facility] Patient: Violet Chin This visit was conducted via [employer]. I have communicated my name and active licensure. The patient's identity and physical location were verified at the time of this visit. Either the patient or their legal senior human resources representative has been informed of the risks and benefits of -- and alternatives to -- treatment through a remote evaluation and consents to proceed with the evaluation remotely. 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 The patient provided informed consent for Hereditary Paraganglioma-Pheochromocytoma Panel plus preliminary evidence genes and Multi-Cancer panel through [employer]. Results are expected in 2-3 weeks from [...] surveillance options would be (more content not included)...[facility]06-03-2025 History of Present illness Narrative* Mouna Hirsch MS - 01/07/2025 11:09 AM EDT Images from the original note were not included. [facility] Department of Medical Genetics Consultation Note Genetic Counselor: Mouna Hirsch MS, [facility] Patient: Violet Chin This visit was conducted via [employer]. I have communicated my name and active licensure. The patient's identity and physical location were verified at the time of this visit. Either the patient or their legal senior human resources representative has been informed of the risks and benefits of -- and alternatives to -- treatment through a remote evaluation and consents to proceed with the evaluation remotely. 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 The patient provided informed consent for Hereditary Paraganglioma- Pheochromocytoma Panel plus preliminary evidence genes and Multi-Cancer panel through [employer]. Results are expected in 2-3 weeks from the time of sample collection. IDENTIFICATION AND CHIEF COMPLAINT: Dr. John Bradley requested a consultation for genetic counseling and risk assessment for Violte Chin, a 59 year old female, for [...] detected, the National Comprehensive Cancer Network and/[facility] opinion recommendations could include increased cancer [...] appropriate standard National Comprehensive Cancer Network and [employer] guidelines, with consideration of their [...] NF1, RET, SDHA, SDHAF2, SDHB, SDHC, SDHD, UTYP047, VHL. Preliminary evidence genes are DLST, EGLN1, EPAS1, KIF1B, MDH2, MEN1, [id number], SUCLG2 The Multi-Cancer Panel includes the following 70 genes: AIP, ALK, APC, CLARISSA, AXIN2, BAP1, BARD1, BLM, BMPR1A, BRCA1, BRCA2, BRIP1, CDC73, CDH1, CDK4, CDKN1B, CDKN2A, CHEK2, CTNNA1, DICER1, EGFR, EPCAM, FH, FLCN, GREM1, HOXB13, KIT, LZTR1, MAX, MBD4, MEN1, MET, MITF, MLH1, MSH2, MSH3, MSH6, MUTYH, NF1, NF2, NTHL1, PALB2, PDGFRA, PMS2, POLD1, POLE, POT1, JMLWM9Y, PTCH1, PTEN, RAD51C, RAD51D, RB1, RET, SDHA, SDHAF2, SDHB, SDHC, SDHD, SMAD4, SMARCA4, SMARCB1, SMARCE1, STK11, SUFU, FHAF771, TP53, TSC1, TSC2, VHL. The Multi-Cancer panel [...] which included preparing to see the patient, [id number] patient care, completing clinical documentation, obtaining and/or [...] the electronic medical record. Mouna Hirsch MS, [facility] Licensed, Certified Genetic Counselor [facility] CC: Dr. John Cota documented in this encounterCleveland [id number] Instructions* Patient Instructions* Nina Lerner MD - [...] testing and Dotatate PET/CT [facility] NoteHNO ID: [id number] Author: NINA LERNER MD Service: ? Author Type: Physician Type: Progress Notes Filed: 01/23/2025 19:02 Note Text: [facility] Follow up note Patient referred by: Aissatou Mac APRN. ENGRAVER SET UP OPERATOR Chief compliant: B/L Adrenal nodules History of [...] vol ug/L 170 Epinephrine, Ur ratio to SHEET MANUFACTURING SUPERVISOR 0 - 20 ug/g SHEET MANUFACTURING SUPERVISOR 6 Epinephrine, Ur 24hr 1 - 14 ug/d 7 Norepinephrine, Ur ratio to SHEET MANUFACTURING SUPERVISOR 0 - 45 ug/g SHEET MANUFACTURING SUPERVISOR 37 Norepinephrine, Ur 24hr 14 - 120 ug/d 39 Dopamine, Ur ratio to SHEET MANUFACTURING SUPERVISOR 0 - 250 ug/g SHEET MANUFACTURING SUPERVISOR 270 (H) Creatinine, Urine Per Volume mg/dL [...] 0.0 - <35.4 ng (more content not included)...[facility]05-27-2025 History of Present illness Narrative* Nina Lerner MD - 12/31/2024 4:03 PM EDT Images from the original note were not included. [facility] Follow up note Patient referred by: Aissatou Mac APRN. ENGRAVER SET UP OPERATOR Chief compliant: B/L Adrenal nodules History of [...] vol ug/L 170 Epinephrine, Ur ratio to SHEET MANUFACTURING SUPERVISOR 0 - 20 ug/g SHEET MANUFACTURING SUPERVISOR 6 Epinephrine, Ur 24hr 1 - 14 ug/d 7 Norepinephrine, Ur ratio to SHEET MANUFACTURING SUPERVISOR 0 - 45 ug/g SHEET MANUFACTURING SUPERVISOR 37 Norepinephrine, Ur 24hr 14 - 120 ug/d 39 Dopamine, Ur ratio to SHEET MANUFACTURING SUPERVISOR 0 - 250 ug/g SHEET MANUFACTURING SUPERVISOR 270 (H) Creatinine, Urine Per Volume mg/dL [...] and iterative recon COMPAR[facility]: [facility] 04/16/2024 , no [...] of SERVICE: 4:00 PM [facility] Telephone encounter Note * Telephone Encounter - Cara Sanders LPN - 12/18/2024 12:40 PM EDT Reviewed provider's message with patient and she voiced understanding. Cara Sanders LPN [facility]05-14-2025 Miscellaneous Notes* Telephone Encounter - Cara [...] 6 months as ordered. [facility] Telephone encounter Note * Telephone Encounter - Cara Sanders LPN - 12/18/2024 12:38 PM EDT ----- Message from Erick Lemus MD sent at 12/18/2024 10:23 AM EDT ----- Bilateral diagnostic mammogram and ultrasounds show asymmetry in right and left breast which is probably benign. Recommend repeat diagnostic mammogram and US in 6 months as ordered. [facility]05-14-2025 History of Present illness Narrative* Serena [...] PATIENT PRESENTS WITH AN IMPLANTABLE OR ATTACHED CHAIR TRIMMER: No RADIOLOGY DEPARTMENT: Ultrasound PERIPHERAL IV DATA: Not applicable SIGNED BY: Serena Gillespie RDMS December 18, 2024 2:13 PM documented in this encounterGuernsey [facility] Hospital[facility]25 NoteHNO ID: [id number] Author: SERENA GILLESPIE RDMS Service: ? Author Type: Partnership Development Manager Type: Progress Notes Filed: 12/18/2024 14:13 Note [...] PATIENT PRESENTS WITH AN IMPLANTABLE OR ATTACHED CHAIR TRIMMER: No RADIOLOGY DEPARTMENT: Ultrasound PERIPHERAL IV DATA: Not applicable SIGNED BY: Serena Gillespie RDMS December 18, 2024 2:13 [facility]05-14-2025 History of Present illness Narrative* Radha Morrow [...] PATIENT PRESENTS WITH AN IMPLANTABLE OR ATTACHED CHAIR TRIMMER: No RADIOLOGY DEPARTMENT: Mammography PERIPHERAL IV DATA: Not applicable SIGNED BY: RT Zeus(Ines) December 18, 2024 8:26 AM documented in this encounterGuernsey [facility] Hospital05-14-2025 NoteHNO ID: [id number] Author: RADHA MORROW RT(R) Service: ? Author [...] PATIENT PRESENTS WITH AN IMPLANTABLE OR ATTACHED CHAIR TRIMMER: No RADIOLOGY DEPARTMENT: Mammography PERIPHERAL IV DATA: Not applicable SIGNED BY: RT Zeus(Ines) December 18, 2024 8:26 [facility]05-01-2025 History of Present illness Narrative* John Bradley [...] to the capsule. A photograph is obtained. [address] sections are submitted as follows: A1 periphery of mass with possible extension beyond capsule (see photograph) A2 senior human resources representative section of mass with necrosis A3-A4 mass with adjacent normal and black inked capsular soft tissue margin A5 additional section of mass with black inked capsular soft tissue margin A6 uninvolved adrenal gland MLG 11/21/24 10:03 AM Gross examination performed at [facility], [address] [place] [address] Postoperative labs were drawn on POD1 which [...] visit. Either the patient or their legal senior human resources representative has been informed of the risks and benefits of -- and alternatives to -- treatment through a remote evaluation andconsents to proceed with the evaluation remotely. documented in this encounterGuernsey [facility] Hospital05-01-2025 NoteHNO ID: [id number] Author: JOHN BRADLEY MD Service: ? Author [...] to the capsule. A photograph is obtained. [address] sections are submitted as follows: A1 periphery of mass with possible extension beyond capsule (see photograph) A2 senior human resources representative section of mass with necrosis A3-A4 mass with adjacent normal and black inked capsular soft tissue margin A5 additional section of mass with black inked capsular soft tissue margin A6 uninvolved adrenal gland MLG 11/21/24 10:03 AM Gross examination performed at [facility], [address] [place] [address] Postoperative labs were drawn on POD1 which [...] visit. Either the patient or their legal senior human resources representative has been informed of the risks and benefits of -- and alternatives to -- treatment through a remote evaluation and consents to proceed with the evaluation remotely.[facility]04[facility] Telephone encounter Note* Telephone Encounter - Claudia Rodriguez RN - 12/04/2024 8:02 AM EDT DOTATATE Comments for Frog Shaker: Any Dotatate Site Will the patient need anesthesia: NO Treatment: N/A N/A Date of Last Treatment: N/A Date of Future Treatment: N/A, verify with patient Primary Insurance: [employer] Imaging: N/A Diagnosis: Adrenal mass (HCC) [E27.8] [...] Scan Schedule at place of last (DOS) [facility] or [facility] Negative Scan Schedule at ANY Dotatate site requested Isotope used: [place] Copper CU-64 Vazquez/MC GA-68 (NETSPOT) Dotatate Dotatate [id number] (54cCi) Gallium Dotatate (NetSpot) E27.8, E27.9, Auth#: Date Range: NPI: JOHN BRADLEY [id number] Member ID: Gene [id number] Site/Contact: Case/Ref#: Notes: Route to: P PET READING TUTOR MC [facility]04-30-2025 Miscellaneous Notes* Telephone Encounter - Claudia Rodriguez RN - 12/04/2024 8:02 AM EDT DOTATATE Comments for Frog Shaker: Any Dotatate Site Will the patient need [...] Scan Schedule at place of last (DOS) [facility] or [facility] Negative Scan Schedule at ANY Dotatate site requested Isotope used: [place] Copper CU-64 Vazquez/MC GA-68 (NETSPOT) Dotatate Dotatate [id number] (54cCi) Gallium Dotatate (NetSpot) E27.8, E27.9, Auth#: Date Range: MD METZ: JOHN BRADLEY [id number] Member ID: Gene [id number] Site/Contact: Case/Ref#: Notes: Route to: P PET READING TUTOR [facility] * Telephone Encounter - Melanie Palomino - 12/04/2024 7:25 AM EDT This form is used for MAIN CAMPUS APPOINTMENTS ONLY. Is this request for a [facility] PET scan appointment? Yes: Transport Aide: Melanie Palomino Who do we call to [...] P COORD REVIEW MC documented in this encounterGuernsey [facility] Hospital04-30-2025 Telephone encounter Note * Telephone Encounter - Melanie Palomino - 12/04/2024 7:25 AM EDT This form is used for MAIN CAMPUS APPOINTMENTS ONLY. Is this request for a [facility] PET scan appointment? Yes: Transport Aide: Melanie Palomino Who do we call to [...] need anesthesia? NO Send requests to P [facility] REVIEW MC [facility]04-17-2025 NoteHNO ID: [id number] Author: RUPESH FLORES MD Service: Endocrine Surgery [...] Output 2310 ml Net 440 ml ASSESSMENT: Viloet Chin is POD1 and recovering well. PLAN of Care: - Regular diet - No SQH - SCDs - Multimodal pain regimen, minimize narcotics - Will wait for AM Cortisol to decide on ACTH STIM Test - Encourage mobilization - Incentive spirometer - Continue BP home meds - Monitor in [facility] - Possible discharge today in the afternoon after complete lab results - Thank you Plan of care discussed with: Provider, RN, Patient. Rupesh Flores MD [phone] Clinical Associate Endocrine and Metabolism [facility], Department of Endocrine SurgeryFire[facility]04-16-2025 NoteHNO ID: [id number] Author: ALBER JAMIL MD Service: Endocrine Surgery [...] in the surgical floor Alber Jamil MD [phone] Clinical Associate Endocrine and Metabolism [facility], Department of Endocrine SurgeryFirelands [facility]04-16-2025 NoteHNO ID: [id number] Author: FLORI UNGER APRN.OPERATER Service: ? Author Type: Nurse Bleach Analyst Type: Anesthesia Procedure Notes Filed: 11/20/2024 15:51 Note Text: ANESTHESIOLOGY PROCEDURE NOTE A-Line General Information Procedure Start Time/Medication Administration: 11/20/2024 1:33 PM Procedure End Time: 11/20/2024 1:34 PM Patient location during procedure: OR Indications: continuous blood pressure monitoring Staffing OPERATER: Flori Unger APRN.OPERATER Performed by: OPERATER Preparation Sterility Preparation: hand hygiene performed prior [...] November 20, 2024 TIME: 3:51 PM CSN: [id number] Regional Medical Center04-16-2025 NoteHNO ID: [id number] Author: FLORI UNGER APRN.OPERATER Service: ? Author Type: Nurse Bleach Analyst Type: Anesthesia Procedure Notes Filed: 11/20/2024 15:50 [...] November 20, 2024 TIME: 3:50 PM CSN: [id number] Regional Medical Center04-16-2025 NoteHNO ID: [id number] Author: FLORI UNGER APRN.CRNA Service: ? Author Type: Nurse Bleach Analyst Type: Anesthesia Procedure Notes Filed: 11/20/2024 14:29 Note Text: ANESTHESIOLOGY PROCEDURE NOTE Airway General Information Procedure Start Time/Medication Administration: 11/20/2024 1:27 PM Procedure End Time: 11/20/2024 1:28 PM Patient location during procedure: OR Patient identity confirmed: arm band and patient Staffing OPERATER: Flori Unger APRN.OPERATER Performed by: ROSE Indications and Patient Condition [...] November 20, 2024 TIME: 2:29 PM CSN: [id number] Regional Medical Center04-11-2025 History of Present illness Narrative* Reef Rylie [...] PATIENT PRESENTS WITH AN IMPLANTABLE OR ATTACHED CHAIR TRIMMER: No ALLERGIES: Reviewed and unchanged CONTRAST ALLERGY: [...] Chest SIGNATURE: REJI Santoro) PATIENT NAME: Violet hCin DATE: November 15, 2024 TIME: 3:04 PM documented in this encounterGuernsey [facility] Hospital04-11-2025 NoteHNO ID: [id number] Author: RYLIE PETIT RT(R) Service: ? Author Type: Partnership Development Manager Type: Progress Notes Filed: 11/15/2024 15:04 Note [...] PATIENT PRESENTS WITH AN IMPLANTABLE OR ATTACHED CHAIR TRIMMER: No ALLERGIES: Reviewed and unchanged CONTRAST ALLERGY: [...] Chin DATE: November 15, 2024 TIME: 3:04 [facility]04-04-2025 History of Present illness Narrative* Jennifer Gonzalez [...] PATIENT PRESENTS WITH AN IMPLANTABLE OR ATTACHED CHAIR TRIMMER: No RADIOLOGY DEPARTMENT: General X-ray: Exam(s) Completed: Chest X-Ray PERIPHERAL IV DATA: Not applicable SIGNED BY: RT Yue(Ines) November 08, 2024 3:16 PM documented in this encounterGuernsey [facility] Hospital04-04-2025 NoteHNO ID: [id number] Author: JENNIFER GONZALEZ RT(R) Service: Radiology Author [...] PATIENT PRESENTS WITH AN IMPLANTABLE OR ATTACHED CHAIR TRIMMER: No RADIOLOGY DEPARTMENT: General X-ray: Exam(s) Completed: Chest X-Ray PERIPHERAL IV DATA: Not applicable SIGNED BY: RT Yue(R) November 08, 2024 3:16 [facility]04-04-2025 Instructions* Patient Instructions* Gurvinder Garcia, CHRISTOPH.ENGRAVER SET UP OPERATOR - 11/08/2024 2:36 PM EDT Images from the original note were not included. [facility] PATIENT PREOPERATIVE INSTRUCTIONS John Bradley, * has scheduled you for your procedure at this surgery center: [facility] [place] Scheduling Office: [phone] --[address] [place] [address]. Please read below carefully for your personalized [...] office. If you are currently using a [id number] injectable or oral medication for diabetes or [...] Procedures: - YOU MUST HAVE A RESPONSIBLE PBX REPAIRER TAKE YOU HOME. A COUNTRY SALES MANAGER OR GUNNERY/ORDNANCE OFFICER CANNOT BE MADE A RESPONSIBLE PBX REPAIRER. - We recommend that a responsible person [...] call the Monday before. Your surgeon s switchbox assembler will tell you what time to call the office. - If you have not reached the departmental switchbox assembler by 5 P.M., call [phone] after 5 P.M. the day before your surgery. Please be aware that emergency situations arise, which may delay or change your surgical time. If this happens, we will notify you as soon as possible and regret any inconvenience. If you already have an Advance Directive, please fax a copy to [phone] or email to for it to be [...] day. Gurvinder Garcia APRN.REEMA documented in this encounterGuernsey [facility] Hospital04-04-2025 History and physical note * Gurvinder Garcia APRN.CNP - 11/08/2024 2:33 PM EDT Images from the original note were not included. [facility] HISTORY [...] 35 kg/m^2 Non-male patient STOP-Bang Score: 3 [id number] Score: Age: <65 Sex: female CHF history: No Hypertension history: Yes Stroke/TIA/thromboembolism history: No Vascular disease history: No Diabetes history: No [id number] Score: 2 ARISCAT Score: Age: 51-80 Preoperative [...] schedule, cancel, or change an appointment. Adults [phone] Pediatrics [phone] Should this patient be seen in a [...] fevers. Neurological: No history of TIA's, stroke, CHARGE ATTENDANT tumor, impaired sensorium, hemiplegia, paraplegia orquadraplegia. No [...] pain, CHF, congenital heart defect, DVT/PE, recent VT, murmur/valvular heart disease, PTCA, PVD, open heart surgery and valve surgery. GI: No history of GI symptoms or problems. No history of esophageal varices, recent ascites, or ETOH greater than 2 drinks per day. : No history of dysuria, frequency or incontinence, stones or chronic kidney disease. No difficulty urinating, nocturia > 1 time per night or hematuria. SHAMPOO PERSON: Negative for abnormal vaginal bleeding, abnormal vaginal [...] 412 QTC Calculation (Bazett) 444 Calculated P Dexter 9 Calculated R Dexter 67 Calculated T Dexter 5 Impression NORMAL SINUS RHYTHM NORMAL ECG No results found for this or any previous visit (from the past 23720 hours). Instructions Given to Patient: Instructions located in the after visit summary. Patient given verbal and written preop instructions and voices comprehension and compliance. SIGNATURE: Gurvinder Garcia APRN.CNP PATIENT NAME: Violet Chin DATE: November 08, 2024 TIME: 2:33 PM PAGER/CONTACT #: [facility]04-04-2025 History and physical note* Gurvinder Garcia [...] 35 kg/m^2 Non-male patient STOP-Bang Score: 3 [id number] Score: Age: <65 Sex: female CHF history: No Hypertension history: Yes Stroke/TIA/thromboembolism history: No Vascular disease history: No Diabetes history: No [id number] Score: 2 ARISCAT Score: Age: 51-80 Preoperative [...] schedule, cancel, or change an appointment. Adults [phone] Pediatrics [phone] Should this patient be seen in a [...] fevers. Neurological: No history of TIA's, stroke, CHARGE ATTENDANT tumor, impaired sensorium, hemiplegia, paraplegia orquadraplegia. No [...] pain, CHF, congenital heart defect, DVT/PE, recent VT, murmur/valvular heart disease, PTCA, PVD, open heart surgery and valve surgery. GI: No history of GI symptoms or problems. No history of esophageal varices, recent ascites, or ETOH greater than 2 drinks per day. : No history of dysuria, frequency or incontinence, stones or chronic kidney disease. No difficulty urinating, nocturia > 1 time per night or hematuria. SHAMPOO PERSON: Negative for abnormal vaginal bleeding, abnormal vaginal [...] 412 QTC Calculation (Bazett) 444 Calculated P Dexter 9 Calculated R Dexter 67 Calculated T Dexter 5 Impression NORMAL SINUS RHYTHM NORMAL ECG No results found for this or any previous visit (from the past 09723 hours). Instructions Given to Patient: Instructions located in the after visit summary. Patient given verbal and written preop instructions and voices comprehension and compliance. SIGNATURE: Gurvinder Garcia APRN.CNP PATIENT NAME: Violet Chin DATE: November 08, 2024 TIME: 2:33 PM PAGER/CONTACT #: documented in this encounterGuernsey [facility] Hospital04-01-2025 History of Present illness Narrative* John Bradley MD - 11/05/2024 9:00 AM EDT ENDOCRINE SURGERY NEW CONSULTATION NAME: Violet Chin CLINIC NO: [id number] : 1965 REFERRING PROVIDER: Nina Lerner MD [...] vol ug/L 170 Epinephrine, Ur ratio to SHEET MANUFACTURING SUPERVISOR 0 - 20 ug/g SHEET MANUFACTURING SUPERVISOR 6 Epinephrine, Ur 24hr 1 - 14 ug/d 7 Norepinephrine, Ur ratio to SHEET MANUFACTURING SUPERVISOR 0 - 45 ug/g SHEET MANUFACTURING SUPERVISOR 37 Norepinephrine, Ur 24hr 14 - 120 ug/d 39 Dopamine, Ur ratio to SHEET MANUFACTURING SUPERVISOR 0 - 250 ug/g SHEET MANUFACTURING SUPERVISOR 270 (H) Creatinine, Urine Per Volume mg/dL [...] be communicated with the ordering provider via [employer] staff message or phone message by Imaging Support Services within 2 business days of report finalization. --END OF FINDING-- Title Checker: ALIZA Transcribe Date/Time: Oct 14 2024 3:23P Dictated by : ANISH BECK MD This examination was interpreted and the report reviewed and electronically signed by: ANISH BECK MD on Oct 14 2024 4:24PM EST Results-Findings * * *Final Report* * * DATE OF EXAM: Oct 14 2024 3:45PM [facility] 0536 - CT ADRENAL WO/W IVCON / [...] and iterative recon COMPARISON: [facility] 04/16/2024 , no [...] additional questions. Sincerely, John Bradley MD Surgical D[facility], Department of Endocrine Surgery documented in this encounterGuernsey Memorial Hospital04-01-2025 NoteHNO ID: [id number] Author: JOHN BRADLEY MD Service: ? Author Type: Physician Type: Progress Notes Filed: 11/05/2024 09:37 Note Text: ENDOCRINE SURGERY NEW CONSULTATION NAME: Violet Chin CLINIC NO: [id number] : 1965 REFERRING PROVIDER: Nina Lerner MD [...] vol ug/L 170 Epinephrine, Ur ratio to SHEET MANUFACTURING SUPERVISOR 0 - 20 ug/g SHEET MANUFACTURING SUPERVISOR 6 Epinephrine, Ur 24hr 1 - 14 ug/d 7 Norepinephrine, Ur ratio to SHEET MANUFACTURING SUPERVISOR 0 - 45 ug/g SHEET MANUFACTURING SUPERVISOR 37 Norepinephrine, Ur 24hr 14 - 120 ug/d 39 Dopamine, Ur ratio to SHEET MANUFACTURING SUPERVISOR 0 - 250 ug/g SHEET MANUFACTURING SUPERVISOR 270 (H) Creatinine, Urine Per Volume mg/dL [...] be communicated with the ordering provider via [employer] staff message or phone message by Imaging Support Services within 2 business days of report finalization. --END OF FINDING-- Title Checker: PSCB Transcribe Date/Time: Oct 14 2024 3:23P Dictated by : ANISH BECK MD This examination was interpreted and the report reviewed and electronically signed by: ANISH BECK MD on Oct 14 2024 4:24PM EST Results-Findings * * *Final Report* * * DATE OF EXAM: Oct 14 2024 3:45PM [facility] 0536 - CT ADRENAL WO/W IVCON / [...] mGy*cm. CT Dose R (more content not included)...[facility]04-01[facility] Instructions* Patient Instructions* Yadira Doll MA - 11/05/2024 8:57 AM EDT Thank you for choosing the [facility] Department of Endocrinology, Diabetes and Metabolism. Did you know that you need to call 48 hours in advance of your scheduled visit, if you are unable to make your appointment? The Endocrinology and Metabolism Dora thanks you for your commitment, because patients not showing to their appointment results in a lost opportunity for patients to receive [facility] health care at the [facility]. To Cancel an appointment, please choose one of the following: - Call the Appointment Call Center at [phone] - From [facility], Go to Appointments - Cancel Appts If cancelling, consider your need to reschedule to prevent further delays in your care. To Schedule an appointment, please choose one of the following: - Call the Appointment Call Center at [phone] - From [facility], Go to Appointments - Request an Appt documented in this encounterGuernsey Memorial Hospital03-27-2025 Telephone encounter Note * Telephone Encounter - Nalini Goode - 10/31/2024 4:10 PM EDT 10/31/2024 INTAKE PENDING-LFT MSG ON VMX AND SENT [employer] ENDOCRINE SURGERY PATIENT WORKSHEET Initial Call Date: October 31, 2024 Reason for Consult/ Referral: Adrenal Mass PATIENT DEMOGRAPHICS Name: Violet Chin CCF#: [id number] : 1965 AGE: [age] year old Contact Numbers: Home: (home) Work: There is no work phone number on file. PATIENT PHYSICIAN INFORMATION Referring Doctor: Address: Phone: Business Banking Representative: Address: Phone: PCP: Erick Lemus [address] [place] [address] PAST TREATMENT Office notes: SEE EPIC Medications: [...] <1.8 ug/dL 13.7 (H) Imaging Reports: SEE [facility] CD of Images: SEE [facility] FNA: no FNA Slides: N/A Has the patient ever had thyroid or parathyroid surgery before: No Operative Reports: NONE AVAILABLE Pathology Reports: NONE AVAILABLE [facility] Work Phone: [phone] Miscellaneous Notes* Telephone Encounter - Nalini Goode - 10/31/2024 4:10 PM EDT 10/31/2024 INTAKE PENDING-LFT MSG ON VMX AND SENT [employer] ENDOCRINE SURGERY PATIENT WORKSHEET Initial Call Date: October 31, 2024 Reason for Consult/ Referral: Adrenal Mass PATIENT DEMOGRAPHICS Name: Violet Chin CCF#: [id number] : 1965 AGE: [age] year old Contact Numbers: Home: (home) Work: There is no work phone number on file. PATIENT PHYSICIAN INFORMATION Referring Doctor: Address: Phone: Business Banking Representative: Address: Phone: PCP: Erick Lemus [address] [place] [address] PAST TREATMENT Office notes: SEE EPIC Medications: [...] <1.8 ug/dL 13.7 (H) Imaging Reports: SEE [facility] CD of Images: SEE [facility] FNA: no FNA Slides: N/A Has the patient ever had thyroid or parathyroid surgery before: No Operative Reports: NONE AVAILABLE Pathology Reports: NONE AVAILABLE documented in this encounterGuernsey Memorial Hospital03-25-2025 Instructions* Patient Instructions* Nina Lerner MD - 10/29/2024 4:23 PM EDT - Monitor MyChart for new lab orders and updates. - Referral to Dr. Rogel, a surgeon specializing in robotic adrenal surgeries, has been made. call this phone number to make an appt with surgery -[phone] - Be prepared for possible additional testing before surgery. documented in this encounterGuernsey Memorial Hospital03-25-2025 NoteHNO ID: [id number] Author: NINA LERNER MD Service: ? Author Type: Physician Type: Progress Notes Filed: 11/02/2024 00:13 Note Text: [facility] Follow up note Patient referred by: Aissatou Mac APRN. ENGRAVER SET UP OPERATOR Chief compliant: B/L Adrenal nodules History of [...] Epinephrine, Ur ratio t (more content not included)...[facility] 10-29-[facility] History of Present illness Narrative* Nina Lerner MD - 10/29/2024 4:02 PM EDT Images from the original note were not included. [facility] Follow up note Patient referred by: Aissatou Mac APRN. ENGRAVER SET UP OPERATOR Chief compliant: B/L Adrenal nodules History of [...] vol ug/L 170 Epinephrine, Ur ratio to SHEET MANUFACTURING SUPERVISOR 0 - 20 ug/g SHEET MANUFACTURING SUPERVISOR 6 Epinephrine, Ur 24hr 1 - 14 ug/d 7 Norepinephrine, Ur ratio to SHEET MANUFACTURING SUPERVISOR 0 - 45 ug/g SHEET MANUFACTURING SUPERVISOR 37 Norepinephrine, Ur 24hr 14 - 120 ug/d 39 Dopamine, Ur ratio to SHEET MANUFACTURING SUPERVISOR 0 - 250 ug/g SHEET MANUFACTURING SUPERVISOR 270 (H) Creatinine, Urine Per Volume mg/dL [...] and iterative recon COMPARISON: Report available through [employer] for outside CT abdomen 04/16/2024 , no [...] of SERVICE: 4:00 PM documented in this encounterGuernsey Memorial Hospital03-18-2025 Telephone encounter Note * Telephone Encounter - Erick Lemus MD - 10/22/2024 7:47 AM EDT Her last OV for anxiety and depression was about 1 year ago. Needs OV to recheck symptoms and discuss treatment options. [facility]03-18-2025 Miscellaneous Notes* Telephone Encounter - Erick Lemus MD - 10/22/2024 7:47 AM EDT Her last OV for anxiety and depression was about 1 year ago. Needs OV to recheck symptoms and discuss treatment options. documented in this encounterGuernsey Memorial Hospital03-14-2025 Telephone encounter Note * Telephone Encounter - Cara Sanders LPN - 10/18/2024 2:36 PM EDT Booklet mailed as requested. Cara Sanders LPN [facility]03-14-2025 Miscellaneous Notes* Telephone Encounter - Cara Sanders LPN - 10/18/2024 2:36 PM EDT Booklet mailed as requested. Cara Sanders LPN * Telephone Encounter - Deepti SpanglerSUMAN - 10/18/2024 12:49 PM EDT Images from the original note were not included. Contains abnormal data LIPID PANEL, NONFASTING Order: [id number] Status: Final result Dx: Mixed hyperlipidemia Test [...] Desk Reference: National Heart, Lung, and Blood [facility]ora. National Institutes of Health. 2001: NIH Publication No. 01-3305. 2. An International Atherosclerosis Society position paper: global recommendations for the management of dyslipidemia: executive summary, Atherosclerosis. 2014: 232(2):410-413. Resulting Agency [facility] Specimen Collected: 10/14/24 3:03 PM [...] correct in the computer. documented in this encounterGuernsey Memorial Hospital03-14-2025 Telephone encounter Note * Telephone Encounter - Deepti Spangler LPN - 10/18/2024 12:49 PM EDT Images from the original note were not included. Contains abnormal data LIPID PANEL, NONFASTING Order: [id number] Status: Final result Dx: Mixed hyperlipidemia Test [...] Desk Reference: National Heart, Lung, and Blood Dora. National Institutes of Health. 2001: NIH Publication No. 01-3305. 2. An International Atherosclerosis Society position paper: global recommendations for the management of dyslipidemia: executive summary, Atherosclerosis. 2014: 232(2):410-413. Resulting Agency [facility] Specimen Collected: 10/14/24 3:03 PM [...] please, it is correct in the computer. [facility]03-12-2025 Telephone encounter Note* Telephone Encounter - Jovita Azul RN - 10/16/2024 9:37 AM EDT Pt is scheduled with Dr. Lerner on 10/29/2024. Sent her a MC message reminding her to bring urinelab results as ordered at previous visit in June. Jovita Azul RN October 16, 2024 9:37 AM [facility]03-12-2025 Miscellaneous Notes* Telephone Encounter - Jovita [...] recommended on last visit documented in this encounterGu[facility]03[facility] Telephone encounter Note * Telephone Encounter - Nina Lerner MD - 10/16/2024 9:01 AM EDT Please let the patient know to follow up at the soonest possible. She should bring with her, the results of labs recommended on last visit [facility]03-10-2025 History of Present illness Narrative* Rylie [...] PATIENT PRESENTS WITH AN IMPLANTABLE OR ATTACHED CHAIR TRIMMER: No ALLERGIES: Reviewed and unchanged CONTRAST ALLERGY: [...] 2024 TIME: 3:38 PM documented in this encounterGuernsey [facility] Hospital03-10-2025 NoteHNO ID: [id number] Author: RYLIE PETIT RT(R) Service: ? Author Type: Partnership Development Manager Type: Progress Notes Filed: 10/14/2024 15:38 Note [...] PATIENT PRESENTS WITH AN IMPLANTABLE OR ATTACHED CHAIR TRIMMER: No ALLERGIES: Reviewed and unchanged CONTRAST ALLERGY: [...] Chin DATE: October 14, 2024 TIME: 3:38 [facility]03-10-2025 Telephone encounter Note* Telephone Encounter - Glendy Gordon MA - 10/14/2024 11:16 AM EDT Left detailed message on secure [employer]. [facility]03-10-2025 Miscellaneous Notes* Telephone Encounter - Glendy [...] advise, thank you! Mouna. documented in this encounterGuernsey [facility] Hospital03-10-2025 Telephone encounter Note * Telephone Encounter - Eve Dorman MA - 10/14/2024 9:55 AM EDT FYI only. Closed encounter. [facility]03-10-2025 Miscellaneous Notes* Telephone Encounter - Eve Dorman MA - 10/14/2024 9:55 AM EDT FYI only. Closed encounter. documented in this encounterGuernsey [facility] Hospital03-10-2025 Telephone encounter Note * Telephone Encounter - Erick Lemus MD - 10/14/2024 9:53 AM EDT Reordered labs from 05/15 that were not completed. Can come in this week or after OV with Dr. Lerner depending on their recommendations. [facility]03-10-2025 Telephone encounter Note* Telephone Encounter - Mouna Gallardo - 10/14/2024 9:48 AM EDT Hello, Patient called in asking if she needs lab orders for Dr. Lemus and Dr. Lerner.I do not see any active orders. Please advise, thank you! Mouna. [facility]03-07-2025 Telephone encounter Note* Telephone Encounter - Cara Sanders LPN - 10/11/2024 2:50 PM EST Phoned patient and reviewed reults and recommendations with her. She voiced understanding and referred to scheduling desk. Cara Sanders LPN [facility]03-07-2025 Miscellaneous Notes* Telephone Encounter - Cara [...] assist patient with scheduling. documented in this encounterGuernsey [facility] Hospital03-07-2025 Telephone encounter Note * Telephone Encounter - Erick Lemus MD - 10/11/2024 12:04 PM EST Screening mammogram incomplete. Needs additional imaging to further characterize asymmetry in rightand left breast. Diagnostic mammogram and US ordered. Please assist patient with scheduling. [facility]03-07-2025 History of Present illness Narrative* Patricio Silva Mammo Tech - 10/11/2024 9:50 AM [...] PATIENT PRESENTS WITH AN IMPLANTABLE OR ATTACHED CHAIR TRIMMER: No RADIOLOGY DEPARTMENT: Mammography PERIPHERAL IV DATA: Not applicable SIGNED BY: Jessica Kahno Ney October 11, 2024 10:03 AM documented in this encounterGuernsey Memorial Hospital03-07-2025 NoteHNO ID: [id number] Author: PATRICIO SILVA Mammo Ney Service: ? Author Type: Partnership Development Manager Type: Progress Notes Filed: 10/11/2024 10:04 Note [...] PATIENT PRESENTS WITH AN IMPLANTABLE OR ATTACHED CHAIR TRIMMER: No RADIOLOGY DEPARTMENT: Mammography PERIPHERAL IV DATA: Not applicable SIGNED BY: Patricio Silva GTRANmelissa Brewster October 11, 2024 10:03 [facility]11-25-2024 Telephone encounter Note* Telephone Encounter - Blank Grande RN - 07/01/2024 4:49 PM EST Called pt and notified of below from Aissatou Mac. Per EGD note 04/17/[address] Howard, it says exactly what Aissatou states. Pt states maybe she misunderstood the counter sales person. [facility]11-25-2024 Miscellaneous Notes* Telephone Encounter - Blank Grande RN - 07/01/2024 4:49 PM EST Called pt and notified of below from Aissatou Mac. Per EGD note 04/17/[address] Howard, it says exactly what Aissatou states. Pt states maybe she misunderstood the counter sales person. * Telephone Encounter - Aissatou Mac APRN.CNP [...] Pt reports she was instructed by the Business Banking Representative to continue since she is taking this [...] 01, 2024 4:21 PM documented in this encounterGuernsey Memorial Hospital11-25-2024 Telephone encounter Note * Telephone Encounter - Aissatou Mac APRN.CNP - 07/01/2024 4:34 PM EST It said on her discharge record to take Carafate for only two weeks and take the Protonix twice a day for 12 weeks. Aissatou Mac APRN.REEMA [facility] Work Phone: [phone] Telephone encounter Note* Telephone Encounter - Sydney Juarez LPN - 07/01/2024 4:12 PM EST Spoke with pt regarding the Carafate that was denied. Pt reports she was instructed by the Business Banking Representative to continue since she is taking this [...] Juarez LPN July 01, 2024 4:21 PM [facility]11-25-2024 Telephone encounter Note* Telephone Encounter - [...] Spangler LPN July 01, 2024 10:16 AM [facility]11-25-2024 Miscellaneous Notes* Telephone Encounter - Deepti [...] 01, 2024 10:16 AM documented in this encounterGuernsey Memorial Hospital11-22-2024 Instructions* Patient Instructions* Nina Lerner MD [...] before labs are done documented in this encounterGuernsey Memorial Hospital11-22-2024 NoteHNO ID: [id number] Author: NINA LERNER MD Service: ? Author Type: Physician Type: Progress Notes Filed: 06/28/2024 14:54 Note Text: [facility] Initial Clinic Visit Note Patient referred by: Aissatou Mac APRN. ENGRAVER SET UP OPERATOR Chief compliant: B/L Adrenal nodules History of [...] the images as this was done at [facility]. We shall check for Pheo as well, due to lack of appropriate images, although she does not have any symptoms -- repeat CT scan with dedicated images for the adrenals for evaluation of size and phenotype of the nodule -- urine catecholamines and metanephrines - 24 hour collection -- aldosterone and renin (more content not included)...[facility]11-22-2024 History of Present illness Narrative* Nina Lerner MD - 06/28/2024 8:21 AM EST Images from the original note were not included. [facility] Initial Clinic Visit Note Patient referred by: Aissatou Mac APRN. ENGRAVER SET UP OPERATOR Chief compliant: B/L Adrenal nodules History of [...] the images as this was done at [facility]. We shall check for Pheo as well, [...] of SERVICE: 8:40 AM documented in this encounterGuernsey [facility] Hospital11-22-2024 Telephone encounter Note * Telephone Encounter [...] Azul RN June 28, 2024 8:12 AM [facility]11-22-2024 Miscellaneous Notes* Telephone Encounter - Jovita [...] 28, 2024 8:12 AM documented in this encounterGuernsey Memorial Hospital10-22-2024 Telephone encounter Note * Telephone Encounter - Cara Sanders LPN - 05/28/2024 8:07 AM EDT VM left for patient to call to reschedule appointment. Advised her to send MC message if difficultyfinding sooner availability and we can assist with locating sooner appointment if needed. Cara Sanders LPN [facility]10-22-2024 Miscellaneous Notes* Telephone Encounter - Cara Sanders LPN - 05/28/2024 8:07 AM EDT VM left for patient to call to reschedule appointment. Advised her to send MC message if difficultyfinding sooner availability and we can assist with locating sooner appointment if needed. Cara Sanders LPN documented in this encounterGuernsey Memorial Hospital10-09-2024 History of Present illness Narrative* PodlogarAissatou APRN.ENGRAVER SET UP OPERATOR - 05/15/2024 2:40 PM EDT 05/15/2024 Patient presents with: Hospital F/U: [facility] 04/18 for abdominal pain SUBJECTIVE: This is a 58 year old that is here today for Above Complaints. HOSPITAL/ER FOLLOW UP: Reason for visit: abdominal pain Which facility: [facility] Date of visit: 04/16/2024-04/18/2024 Diagnosis: duodenal lipoma [...] Level: 4 - Moderate documented in this encounterGuernsey Memorial Hospital10-09-2024 NoteHNO ID: [id number] Author: AISSATOU MAC APRN.CNP Service: ? Author Type: Nurse Practitioner Type: Progress Notes Filed: 06/28/2024 08:33 Note Text: 05/15/2024 Patient presents with: Hospital F/U: [facility] 04/18 for abdominal pain SUBJECTIVE: This is a 58 year old that is here today for Above Complaints. HOSPITAL/ER FOLLOW UP: Reason for visit: abdominal pain Which facility: [facility] Date of visit: 04/16/2024-04/18/2024 Diagnosis: duodenal lipoma [...] if symptoms persist after completion Aissatou Mac, AUTOMOTIVE GLASS MECHANIC.REEMA Prescription instructions reviewed with patient as applicable. Patient advised if symptoms do not improve or if symptoms worsen sooner, to contact their primary care physician. Potential red flag symptoms discussed with the patient. Reviewed appropriate action plan to take if red flag symptoms occur. Patient (more content not included)...[facility]09-12-2024 [facility] Medical Records Department [address] [place] [address] Discharge Summary 04/18/24 1337 MR#: [id number] Acct: [id number] Name: VIOLET CHIN Rep #: [id number] : 1965 58 From: Kostas Coffman DO PCP: Dr. Rico Lemus MD Status:DIS IN Location: [place] [address] Providers Date of Admission: 04/16/24 Date of Discharge: 04/18/24 Primary Care Physician: Dr. Rico Lemus MD Consultations 04/16/24 20:39 Consult: Gastroenterology Routine Consulting Provider: [facility] Reason for Consult: Fatty Mass in [...] Patient is a 58-year-old female who presented [facility] ED on 04/16/2024 with worsening abdominal pain. [...] acute distress. General Appearance: (more content not included)...[facility] 01-17-2024 History of Present illness Narrative* Drew Galvan MD - 01/17/2024 5:43 PM EDT Patient presents with: Suture Removal: Suture removal left knee x 5 placed in ER [facility] HPI: Patient presents for suture removal. She cut her left knee on a broken shower soap dish and had sutures placed at [facility] ER 01/06/2024. Denies bleeding, drainage, dehiscence, erythema, [...] orfever/malaise. Drew Galvan MD documented in this encounterGuernsey [facility] Hospital06-06-2024 Telephone encounter Note * Telephone Encounter - Chase Choi MA - 01/11/2024 1:45 PM EDT Left message to call office. 01/11/2024 1:45 PM [facility]06-06-2024 Miscellaneous Notes* Telephone Encounter - Chase Choi MA - 01/11/2024 1:45 PM EDT Left message to call office. 01/11/2024 1:45 PM * Telephone Encounter - Cara Sanders LPN - 01/08/2024 4:47 PM EDT Phoned patient to schedule ER f/u for 01/16/24 for suture removal. Message left for patient to return call to schedule appointment. documented in this encounterGuernsey Memorial Hospital06-03-2024 Telephone encounter Note * Telephone Encounter - Cara Sanders LPN - 01/08/2024 4:47 PM EDT Phoned patient to schedule ER f/u for 01/16/24 for suture removal. Message left for patient to return call to schedule appointment. [facility]04-09-2024 History of Present illness Narrative* Erick [...] tobacco. Erick Lemus MD documented in this encounterGuernsey Memorial Hospital02-12-2024 Miscellaneous Notes* Telephone Encounter - Aissatou [...] De La Torre Ma. documented in this encounterGuernsey Memorial Hospital12-11-2023 Miscellaneous Notes* Telephone Encounter - Martine [...] scheduled Martine Cantu MA documented in this encounterGuernsey Memorial Hospital11-13-2023 Miscellaneous Notes* Telephone Encounter - Martine [...] scheduled Martine Cantu MA documented in this encounterGuernsey Memorial Hospital09-07-2023 History of Present illness Narrative* Erick [...] history of abnormal pap. Needs referral to [facility]. Agreeable to referral for colonoscopy. Screening mammogram [...] No history of dysuria, frequency or incontinence [facility]: Negative for abnormal vaginal bleeding, abnormal vaginal [...] weeks to see if symptoms resolved. Erick Lemus MD documented in this encounterGuernsey Memorial Hospital08-10-2022 Miscellaneous Notes* Telephone Encounter - Balwinder Langford - 03/16/2022 11:00 AM EDT 3rd failed attempt to schedule colonoscopy. Left VM, sent letter, and [employer] message. New order will need placed when patient calls in or requests to schedule. Thank you. YAA 03/15 [facility]* Diagnosis Encounter for screening mammogram for breast cancer documented [facility] encounter [facility]* Diagnosis Encounter for screening mammogram for breast cancer documented in this encounter [facility]* Diagnosis Annual physical exam- Primary Routine [...] of unspecified site documented in this encounter [facility]* Diagnosis Essential hypertension Unspecified essential hypertension documented in this encounter [facility]* Diagnosis Essential hypertension Unspecified essential hypertension documented in this encounter [facility]* Diagnosis Anxiety with depression documented in [facility] encounter [facility]* Diagnosis Essential hypertension Unspecified essential hypertension documented in this encounter [facility]* Diagnosis Screening for colon cancer- Primary Special screening for malignant neoplasms, colon documented in this encounter [facility]* Diagnosis Anxiety with depression documented [facility] this encounter [facility]* Diagnosis Anxiety with depression- Primary Essential hypertension Unspecified essential hypertension Mixed hyperlipidemia Obesity (BMI 30-39.9) Obesity, unspecified Tobacco use Tobacco use disorder documented in this encounter [facility]* Diagnosis Laceration of left knee, subsequent encounter- Primary documented in this encounter [facility]* Diagnosis Hospital discharge follow-up- Primary Other follow-up examination Mass of both adrenal glands (HCC) Mixed hyperlipidemia Elevated blood sugar Other abnormal glucose Adrenal mass 1 cm to 4 cm in diameter (HCC) Hypokalemia Hypopotassemia documented in this encounter [facility]* Diagnosis 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 Hospital discharge follow-up Other follow-up examination Adrenal mass 1 cm to 4 cm in diameter (HCC) Disorder of adrenal gland (HCC) Unspecified disorder of adrenal glands documented in this encounter [facility]* Diagnosis Essential hypertension Unspecified essential hypertension Anxiety with depression documented in this encounter [facility]* Diagnosis Abnormal mammogram- Primary Abnormal mammogram, unspecified documented in this encounter [facility]* Diagnosis Encounter for screening mammogram for breast cancer documented in this encounter [facility]* Diagnosis Essential hypertension- Primary Unspecified essential hypertension Mixed hyperlipidemia Hyperglycemia Other abnormal glucose documented in this encounter [facility]* Diagnosis Disorder of adrenal gland (HCC) Unspecified disorder of adrenal glands documented in this encounter [facility]* Diagnosis Adrenal nodule (HCC)- Primary Unspecified disorder of adrenal glands documented in this encounter [facility]* Diagnosis Adrenal nodule (HCC)- Primary Unspecified disorder of adrenal glands Obesity, Class I, BMI 30-34.9 Obesity, unspecified documented in this encounter [facility]* Diagnosis Adrenal mass (HCC)- Primary Unspecified disorder of adrenal glands Disorder of adrenal gland (HCC) Unspecified disorder of adrenal glands documented in this encounter [facility]* Diagnosis Pre-operative examination- Primary Preoperative examination, [...] of adrenal glands documented in this encounter [facility]* Diagnosis Pre-operative examination- Primary Preoperative examination, [...] 131/84 07/02/2018 116/80 [facility]* Diagnosis Pre-operative examination- Primary Preoperative examination, [...] of adrenal glands documented in this encounter [facility]* Diagnosis Pre-operative examination- Primary Preoperative examination, [...] of adrenal glands documented in this encounter [facility]* Diagnosis Pre-operative examination- Primary Preoperative examination, [...] adrenal gland- Primary [facility]* Diagnosis Pre-operative examination- Primary Preoperative examination, [...] Abnormal mammogram, unspecified [facility]* Diagnosis Pre-operative examination- Primary Preoperative examination, [...] Abnormal mammogram, unspecified documented in this encounter [facility] note* Diagnosis Pre-operative examination- Primary Preoperative examination, [...] Abnormal mammogram, unspecified [facility]* Diagnosis Pre-operative examination- Primary Preoperative examination, [...] adrenal gland- Primary documented in this encounter [facility] note* Diagnosis Pre-operative examination- Primary Preoperative examination, [...] glands (HCC)- Primary documented in this encounter [facility] note* Diagnosis Onset Date Resolution Status Admit Date Physical exam, pre-employment acute January 27, 2025 3:08pm [facility] Work Phone: Evaluation note* Diagnosis Pre-operative [...] of adrenal glands documented in this encounter [facility] for referral (narrative)* Diagnostic Procedure Only (Routine) - Pending Review Specialty Diagnoses / Procedures Referred By Samara castillo Referred To Contact [facility] Diagnoses Encounter for screening mammogram for breast cancer Procedures MAYITO SCREENING SCREENING MAMMOGRAPHY BI 2-VIEW BREAST INC CAD Erick Lemus MD [address] [place] [address] [facility] [address] [place] [id number] Referral ID Status Reason Start Date Expiration Date Visits Requested Visits Authorized [id number] Pending Review Auto-Generat ed Referral 02/09/2022 03/11/2023 1 1 [facility] for referral (narrative)* Diagnostic Procedure Only (Routine) - Pending Review Specialty Diagnoses / Procedures Referred By Samara castillo Referred To Contact [facility] Diagnoses Encounter for screening mammogram for breast cancer Procedures MAYITO SCREENING SCREENING MAMMOGRAPHY BI 2-VIEW BREAST INC Erick Hdz MD [address] [place] [address] [facility] [address] [place] [address] Referral ID Status Reason Start Date Expiration Date Visits Requested Visits Authorized [id number] Pending Review Auto-Generat ed Referral 02/08/2023 03/09/2024 1 1 [facility] for referral (narrative)* Diagnostic Procedure Only (Routine) - Pending Review Specialty Diagnoses / Procedures Referred By Samara castillo Referred To Contact [facility] Diagnoses Encounter for screening mammogram for breast cancer Procedures MAYITO SCREENING W GERALD SCREENING DIGITAL BREAST TOMOSYNTHESIS BI SCREENING MAMMOGRAPHY BI 2-VIEW BREAST INC Erick Hdz MD [address] [place] [address] [facility] [address] [place] [address] Referral ID Status Reason Start Date Expiration Date Visits Requested Visits Authorized [id number] Pending Review Auto-Generat ed Referral 01/17/2024 02/15/2025 1 1 [facility] for referral (narrative)No reason for referral information availableSaint John'S Health [facility] Services Work Phone: Reason for visit Narrative* Diagnostic Procedure Only (Routine) - Closed Specialty Diagnoses / Procedures Referred By Samara castillo Referred To Contact [facility] Diagnoses Encounter for screening mammogram for breast cancer Procedures MAYITO SCREENING W GERALD SCREENING DIGITAL BREAST TOMOSYNTHESIS BI SCREENING MAMMOGRAPHY BI 2-VIEW BREAST INC Erick Hdz MD [address] [place] [address] Phone: tel: fax: [facility] [address] [address] Referral ID Status Reason Start Date Expiration Date V isits Requested Visits Authorized [id number] Closed Auto-Generate d Referral 01/17/2024 02/15/2025 1 1 [facility] for visit Narrative* Consult, Test, Treat (Routine) - Closed Specialty Diagnoses / Procedures Referred By Contac t Referred To Contact Diagnoses Adrenal nodule (HCC) Procedures CONSULT TO ENDOCRINE SURGERY OFFICE/OUTPATIENT [facility] 60 MINUTES Bianca Rogel MD [address] [place] [address] Phone: tel: fax: Referral ID Status Reason Start Date Expiration Date V isits Requested Visits Authorized [id number] Closed PCP Requested Referral 10/29/2024 10/29/2025 1 1 [facility] for visit Narrative* MRI/CT (Routine) - Closed Specialty Diagnoses / Procedures Referred By Contac t Referred To Contact CT [facility] Diagnoses Disorder of adrenal gland (HCC) Procedures CT CHEST W IVCON DIAGNOSTIC COMPUTED TOMOGRAPHY THORAX W/CONTRAST John Bradley MD [address] [place] [id number] Phone: tel: fax: [facility] [place] [address] Referral ID Status Reason Start Date Expiration Date V isits Requested Visits Authorized [id number] Closed Auto-Generate d Referral 11/05/2024 12/05/2025 1 1 [facility] for visit Narrative* Diagnostic Procedure Only (Routine) - Closed Specialty Diagnoses / Procedures Referred By Contac t Referred To Contact [facility] Diagnoses Abnormal mammogram Procedures MAYITO DIAGNOSTIC BILATERAL DIAGNOSTIC MAMMOGRAPHY COMPUTER-AIDED DETCJ BI Erick Lemus MD [address] [place] [address] Phone: tel: fax: [facility] [address] [place] [address] Referral ID Status Reason Start Date Expiration Date V isits Requested Visits Authorized [id number] Closed Auto-Generate d Referral 10/11/2024 11/10/2025 1 1 [facility] for visit Narrative* Diagnostic Procedure Only (Routine) - Closed Specialty Diagnoses / Procedures [facility] To Contact [facility] Diagnoses Abnormal mammogram Procedures US BREAST LTD RIGHT US BREAST UNI REAL TIME WITH IMAGE LIMITED Erick Lemus MD [address] [place] [address] Phone: tel: fax: [facility] [address] [place] [address] Referral ID Status Reason Start Date Expiration Date V isits Requested Visits Authorized [id number] Closed Auto-Generate d Referral 10/11/2024 11/10/2025 1 1 [facility] [place] for visit Narrative* Diagnostic Procedure Only (Routine) - Closed Specialty Diagnoses / Procedures Referred By Contac t Referred To Contact MOLECULAR & FUNCTIONAL IMAGING Diagnoses Adrenal mass (HCC) Disorder of adrenal gland (HCC) Adrenal nodule (HCC) Procedures NM PET/CT NEUROENDOCRINE WHOLE BODY IMAGING PET IMAGING CT ATTENUATION SKULL BASE MID-THIGH John Bradley MD [address] [place] [address] Phone: tel: fax: [facility] [address] [place] [address] Phone: tel: Referral ID Status Reason Start Date Expiration Date V isits Requested Visits Authorized [id number] Closed Auto-Generate d Referral 01/27/2025 08/06/2025 2 2 [facility] [place] for visit Narrative* Diagnostic Procedure Only (Routine) - Closed Specialty Diagnoses / Procedures Referred By Contac t Referred To Contact MOLECULAR & FUNCTIONAL IMAGING Diagnoses Adrenal mass (HCC) Disorder of adrenal gland (HCC) Adrenal nodule (HCC) Procedures NM PET/CT NEUROENDOCRINE WHOLE BODY IMAGING PET IMAGING CT ATTENUATION SKULL BASE MID-THIGH John Bradley MD [address] [place] [address] Phone: tel: fax: [facility] [address] [place] [address] Phone: tel: Referral ID Status Reason Start Date Expiration Date V isits Requested Visits Authorized [id number] Closed Auto-Generate d Referral 01/27/2025 08/06/2025 2 2 [facility] Reason for Referral Specialty Diagnoses / Procedures Referred By Contac t Referred To Contact General Surgery Diagnoses Screening for colon cancer Procedures CONSULT TO GENERAL SURGERY OFFICE/OUTPATIENT [facility] 60-74 MINUTES Erick Lemus MD [address] [place] [address] Referral ID Status Reason Start Date Expiration Date Visits Requested Visits Authorized [id number] Pending Review PCP Requested Referral 04/13/2023 04/12/2024 1 1 Specialty Diagnoses / Procedures Referred By Contac t Referred To Contact Gynecology Diagnoses Screening for cervical cancer Procedures CONSULT TO GYNECOLOGY OFFICE/OUTPATIENT [facility] 60-74 MINUTES Erick Lemus MD [address] [place] [address] Referral ID Status Reason Start Date Expiration Date Visits Requested Visits Authorized [id number] Pending Review PCP Requested Referral Auto-Generate d Referral 04/13/2023 04/12/2024 1 1 Specialty Diagnoses / Procedures Referred By Contac t Referred To Contact Endocrinology Diagnoses Mass of both adrenal glands (HCC) Hospital discharge follow-up Adrenal mass 1 cm to 4 cm in diameter (HCC) Procedures CONSULT TO ENDOCRINOLOGY OFFICE/OUTPATIENT [facility] 60 MINUTES Aissatou Mac APRN.CNP [address] [place] [address] Referral ID Status Reason Start Date Expiration Date Visits Requested Visits Authorized [id number] Authorized PCP Requested Referral 05/15/2024 05/15/2025 1 1 Specialty Diagnoses / Procedures Referred By Contac t Referred To Contact CT IMAGING Diagnoses Disorder of adrenal gland (HCC) Procedures CT ADRENAL WO/W IVCON CT ABDOMEN W & W/O CONTRAST Nina Lerner MD [address] [id number] [place] [address] Referral ID Status Reason Start Date Expiration Date Visits Requested Visits Authorized [id number] Pending Review Auto-Generat ed Referral 07/28/2025 1 [...] or prosecute any alcohol or drug abuse patient.[facility] the event this information is protected by the Federal Confidentiality of Alcohol and Drug Abuse Patient Records regulations: The Federal rules restrict any use of the information to criminally investigate or prosecute any alcohol or drug abuse patient.[facility] HospitalIn the event this information is protected by the Federal Confidentiality of Alcohol and Drug Abuse Patient Records regulations: The Federal rules restrict any use of the information to criminally investigate or prosecute any alcohol or drug abuse patient.[facility] HospitalIn the event this information is protected by the Federal Confidentiality of Alcohol and Drug Abuse Patient Records regulations: The Federal rules restrict any use of the information to criminally investigate or prosecute any alcohol or drug abuse patient.[facility] HospitalIn the event this information is protected by the Federal Confidentiality of Alcohol and Drug Abuse Patient Records regulations: The Federal rules restrict any use of the information to criminally investigate or prosecute any alcohol or drug abuse patient.[facility] HospitalIn the event this information is protected by the Federal Confidentiality of Alcohol and Drug Abuse Patient Records regulations: The Federal rules restrict any use of the information to criminally investigate or prosecute any alcohol or drug abuse patient.[facility] HospitalIn the event this information is protected by the Federal Confidentiality of Alcohol and Drug Abuse Patient Records regulations: The Federal rules restrict any use of the information to criminally investigate or prosecute any alcohol or drug abuse patient.[facility] HospitalIn the event this information is protected by the Federal Confidentiality of Alcohol and Drug Abuse Patient Records regulations: The Federal rules restrict any use of the information to criminally investigate or prosecute any alcohol or drug abuse patient.[facility] HospitalIn the event this information is protected by the Federal Confidentiality of Alcohol and Drug Abuse Patient Records regulations: The Federal rules restrict any use of the information to criminally investigate or prosecute any alcohol or drug abuse patient.[facility] HospitalIn the event this information is protected by the Federal Confidentiality of Alcohol and Drug Abuse Patient Records regulations: The Federal rules restrict any use of the information to criminally investigate or prosecute any alcohol or drug abuse patient.[facility] HospitalIn the event this information is protected by the Federal Confidentiality of Alcohol and Drug Abuse Patient Records regulations: The Federal rules restrict any use of the information to criminally investigate or prosecute any alcohol or drug abuse patient.[facility] HospitalIn the event this information is protected by the Federal Confidentiality of Alcohol and Drug Abuse Patient Records regulations: The Federal rules restrict any use of the information to criminally investigate or prosecute any alcohol or drug abuse patient.[facility] HospitalIn the event this information is protected by the Federal Confidentiality of Alcohol and Drug Abuse Patient Records regulations: The Federal rules restrict any use of the information to criminally investigate or prosecute any alcohol or drug abuse patient.[facility] HospitalIn the event this information is protected by the Federal Confidentiality of Alcohol and Drug Abuse Patient Records regulations: The Federal rules restrict any use of the information to criminally investigate or prosecute any alcohol or drug abuse patient.[facility] HospitalIn the event this information is protected by the Federal Confidentiality of Alcohol and Drug Abuse Patient Records regulations: The Federal rules restrict any use of the information to criminally investigate or prosecute any alcohol or drug abuse patient.[facility] HospitalIn the event this information is protected by the Federal Confidentiality of Alcohol and Drug Abuse Patient Records regulations: The Federal rules restrict any use of the information to criminally investigate or prosecute any alcohol or drug abuse patient.[facility] HospitalIn the event this information is protected by the Federal Confidentiality of Alcohol and Drug Abuse Patient Records regulations: The Federal rules restrict any use of the information to criminally investigate or prosecute any alcohol or drug abuse patient.[facility] HospitalIn the event this information is protected by the Federal Confidentiality of Alcohol and Drug Abuse Patient Records regulations: The Federal rules restrict any use of the information to criminally investigate or prosecute any alcohol or drug abuse patient.[facility] HospitalIn the event this information is protected by the Federal Confidentiality of Alcohol and Drug Abuse Patient Records regulations: The Federal rules restrict any use of the information to criminally investigate or prosecute any alcohol or drug abuse patient.[facility] HospitalIn the event this information is protected by the Federal Confidentiality of Alcohol and Drug Abuse Patient Records regulations: The Federal rules restrict any use of the information to criminally investigate or prosecute any alcohol or drug abuse patient.[facility] HospitalIn the event this information is protected by the Federal Confidentiality of Alcohol and Drug Abuse Patient Records regulations: The Federal rules restrict any use of the information to criminally investigate or prosecute any alcohol or drug abuse patient.[facility] HospitalIn the event this information is protected by the Federal Confidentiality of Alcohol and Drug Abuse Patient Records regulations: The Federal rules restrict any use of the information to criminally investigate or prosecute any alcohol or drug abuse patient.[facility] HospitalIn the event this information is protected by the Federal Confidentiality of Alcohol and Drug Abuse Patient Records regulations: The Federal rules restrict any use of the information to criminally investigate or prosecute any alcohol or drug abuse patient.[facility] HospitalIn the event this information is protected by the Federal Confidentiality of Alcohol and Drug Abuse Patient Records regulations: The Federal rules restrict any use of the information to criminally investigate or prosecute any alcohol or drug abuse patient.[facility] HospitalIn the event this information is protected by the Federal Confidentiality of Alcohol and Drug Abuse Patient Records regulations: The Federal rules restrict any use of the information to criminally investigate or prosecute any alcohol or drug abuse patient.[facility] HospitalIn the event this information is protected by the Federal Confidentiality of Alcohol and Drug Abuse Patient Records regulations: The Federal rules restrict any use of the information to criminally investigate or prosecute any alcohol or drug abuse patient.[facility] HospitalIn the event this information is protected by the Federal Confidentiality of Alcohol and Drug Abuse Patient Records regulations: The Federal rules restrict any use of the information to criminally investigate or prosecute any alcohol or drug abuse patient.[facility] HospitalIn the event this information is protected by the Federal Confidentiality of Alcohol and Drug Abuse Patient Records regulations: The Federal rules restrict any use of the information to criminally investigate or prosecute any alcohol or drug abuse patient.[facility] HospitalIn the event this information is protected by the Federal Confidentiality of Alcohol and Drug Abuse Patient Records regulations: The Federal rules restrict any use of the information to criminally investigate or prosecute any alcohol or drug abuse patient.[facility] HospitalIn the event this information is protected by the Federal Confidentiality of Alcohol and Drug Abuse Patient Records regulations: The Federal rules restrict any use of the information to criminally investigate or prosecute any alcohol or drug abuse patient.[facility] HospitalIn the event this information is protected by the Federal Confidentiality of Alcohol and Drug Abuse Patient Records regulations: The Federal rules restrict any use of the information to criminally investigate or prosecute any alcohol or drug abuse patient.[facility] HospitalIn the event this information is protected by the Federal Confidentiality of Alcohol and Drug Abuse Patient Records regulations: The Federal rules restrict any use of the information to criminally investigate or prosecute any alcohol or drug abuse patient.[facility] HospitalIn the event this information is protected by the Federal Confidentiality of Alcohol and Drug Abuse Patient Records regulations: The Federal rules restrict any use of the information to criminally investigate or prosecute any alcohol or drug abuse patient.[facility] HospitalIn the event this information is protected by the Federal Confidentiality of Alcohol and Drug Abuse Patient Records regulations: The Federal rules restrict any use of the information to criminally investigate or prosecute any alcohol or drug abuse patient.[facility] HospitalIn the event this information is protected by the Federal Confidentiality of Alcohol and Drug Abuse Patient Records regulations: The Federal rules restrict any use of the information to criminally investigate or prosecute any alcohol or drug abuse patient.[facility] HospitalIn the event this information is protected by the Federal Confidentiality of Alcohol and Drug Abuse Patient Records regulations: The Federal rules restrict any use of the information to criminally investigate or prosecute any alcohol or drug abuse patient.[facility] HospitalIn the event this information is protected by the Federal Confidentiality of Alcohol and Drug Abuse Patient Records regulations: The Federal rules restrict any use of the information to criminally investigate or prosecute any alcohol or drug abuse patient.[facility] HospitalIn the event this information is protected by the Federal Confidentiality of Alcohol and Drug Abuse Patient Records regulations: The Federal rules restrict any use of the information to criminally investigate or prosecute any alcohol or drug abuse patient.[facility] HospitalIn the event this information is protected by the Federal Confidentiality of Alcohol and Drug Abuse Patient Records regulations: The Federal rules restrict any use of the information to criminally investigate or prosecute any alcohol or drug abuse patient.[facility] HospitalIn the event this information is protected by the Federal Confidentiality of Alcohol and Drug Abuse Patient Records regulations: The Federal rules restrict any use of the information to criminally investigate or prosecute any alcohol or drug abuse patient.[facility] HospitalIn the event this information is protected by the Federal Confidentiality of Alcohol and Drug Abuse Patient Records regulations: The Federal rules restrict any use of the information to criminally investigate or prosecute any alcohol or drug abuse patient.[facility] HospitalIn the event this information is protected by the Federal Confidentiality of Alcohol and Drug Abuse Patient Records regulations: The Federal rules restrict any use of the information to criminally investigate or prosecute any alcohol or drug abuse patient.[facility] HospitalIn the event this information is protected by the Federal Confidentiality of Alcohol and Drug Abuse Patient Records regulations: The Federal rules restrict any use of the information to criminally investigate or prosecute any alcohol or drug abuse patient.[facility] HospitalIn the event this information is protected by the Federal Confidentiality of Alcohol and Drug Abuse Patient Records regulations: The Federal rules restrict any use of the information to criminally investigate or prosecute any alcohol or drug abuse patient.[facility] HospitalIn the event this information is protected by the Federal Confidentiality of Alcohol and Drug Abuse Patient Records regulations: The Federal rules restrict any use of the information to criminally investigate or prosecute any alcohol or drug abuse patient.[facility] HospitalIn the event this information is protected by the Federal Confidentiality of Alcohol and Drug Abuse Patient Records regulations: The Federal rules restrict any use of the information to criminally investigate or prosecute any alcohol or drug abuse patient.[facility] HospitalIn the event this information is protected by the Federal Confidentiality of Alcohol and Drug Abuse Patient Records regulations: The Federal rules restrict any use of the information to criminally investigate or prosecute any alcohol or drug abuse patient.[facility] HospitalIn the event this information is protected by the Federal Confidentiality of Alcohol and Drug Abuse Patient Records regulations: The Federal rules restrict any use of the information to criminally investigate or prosecute any alcohol or drug abuse patient.[facility] HospitalIn the event this information is protected by the Federal Confidentiality of Alcohol and Drug Abuse Patient Records regulations: The Federal rules restrict any use of the information to criminally investigate or prosecute any alcohol or drug abuse patient.[facility] HospitalIn the event this information is protected by the Federal Confidentiality of Alcohol and Drug Abuse Patient Records regulations: The Federal rules restrict any use of the information to criminally investigate or prosecute any alcohol or drug abuse patient.[facility] HospitalIn the event this information is protected by the [facility] Confidentiality of Alcohol and Drug Abuse Patient Records regulations: The Federal rules restrict any use of the information to criminally investigate or prosecute any alcohol or drug abuse patient.[facility] HospitalIn the event this information is protected by the Federal Confidentiality of Alcohol and Drug Abuse Patient Records regulations: The Federal rules restrict any use of the information to criminally investigate or prosecute any alcohol or drug abuse patient.[facility] Care Teams (unrecognized sec tion and content) Train Station Server Relationship Specialty Start Date End Date Erick Lemus MD [address] [place], [place] [id number] PCP - General Family Practice 03/15/19 Train Station Server Relationship Specialty Start Date End Date Erick Lemus MD [address] [place], [place] [id number] PCP - General Family Practice 03/15/19 Train Station Server Relationship Specialty Start Date End Date Erick Lemus MD [address] [place] [address] PCP - General Family Medicine 03/15/19 Train Station Server Relationship Specialty Start Date End Date Erick Lemus MD [address] [facility] [place] [address] PCP - General Family Medicine 03/15/19 Train Station Server Relationship Specialty Start Date End Date Erick Lemus MD [address] [facility] [place] [address] PCP - General Family Medicine 03/15/19 Train Station Server Relationship Specialty Start Date End Date Erick Lemus MD [address] [facility] [place] [address] PCP - General Family Medicine 03/15/19 Train Station Server Relationship Specialty Start Date End Date Erick Lemus MD [address] [facility] [place] [address] PCP - General Family Medicine 03/15/19 Train Station Server Relationship Specialty Start Date End Date Erick Lemus MD [address] [facility] [place] [address] PCP - General Family Medicine 03/15/19 Train Station Server Relationship Specialty Start Date End Date Erick Lemus MD [address] [facility] [place] [address] PCP - General Family Medicine 03/15/19 Train Station Server Relationship Specialty Start Date End Date Erick Lemus MD [address] [facility] [place] [address] PCP - General Family Medicine 03/15/19 Train Station Server Relationship Specialty Start Date End Date Erick Lemus MD [address] [facility] [place] [address] PCP - General Family Medicine 03/15/19 Train Station Server Relationship Specialty Start Date End Date Erick Lemus MD [address] [facility] [place] [address] PCP - General Family Medicine 03/15/19 Train Station Server Relationship Specialty Start Date End Date Erick Lemus MD [address] [facility] [place] [address] PCP - General Family Medicine 03/15/19 Train Station Server Relationship Specialty Start Date End Date Erick Lemus MD [address] [facility] [place] [address] PCP - General Family Medicine 03/15/19 Train Station Server Relationship Specialty Start Date End Date Erick Lemus MD [address] [facility] [place] [address] PCP - General Family Medicine 03/15/19 Train Station Server Relationship Specialty Start Date End Date Erick Lemus MD [address] [facility] [place] [address] PCP - General Family Medicine 03/15/19 Train Station Server Relationship Specialty Start Date End Date Erick Lemus MD [address] [facility] [place] [address] PCP - General Family Medicine 03/15/19 Train Station Server Relationship Specialty Start Date End Date Erick Lemus MD [address] [facility] [place] [address] PCP - General Family Medicine 03/15/19 Train Station Server Relationship Specialty Start Date End Date Erick Lemus MD [address] [place] [address] PCP - General Family Medicine 03/15/19 Train Station Server Relationship Specialty Start Date End Date Erick Lemus MD [address] [place] [address] PCP - General Family Medicine 03/15/19 Podlogar, Aissatou, AUTOMOTIVE GLASS MECHANIC.ENGRAVER SET UP OPERATOR [address] [place] [address] Cafeteria Aide [facility] 07/13/24 Train Station Server Relationship Specialty Start Date End Date Erick Lemus MD [address] [place] [address] PCP - General Family Medicine 03/15/19 Podlogar, Aissatou, AUTOMOTIVE GLASS MECHANIC.ENGRAVER SET UP OPERATOR [address] [place] [address] [facility] Train Station Server Relationship Specialty Start Date End Date Erick Lemus MD [address] [place] [address] PCP - General Family Medicine 03/15/19 Podlogar, Aissatou, AUTOMOTIVE GLASS MECHANIC.ENGRAVER SET UP OPERATOR [address] [place] [address] [facility] 07/13/24 Train Station Server Relationship Specialty Start Date End Date Erick Lemus MD [address] [place] [address] PCP - General Family Medicine 03/15/19 Podlogar, Aissatou, AUTOMOTIVE GLASS MECHANIC.ENGRAVER SET UP OPERATOR [address] [place] [address] Cafeteria Aide [facility] 07/13/24 Train Station Server Relationship Specialty Start Date End Date Erick Lemus MD [address] [place] [address] PCP - General Family Medicine 03/15/19 Podlogar, Aissatou, AUTOMOTIVE GLASS MECHANIC.ENGRAVER SET UP OPERATOR [address] [place] [address] [facility] Train Station Server Relationship Specialty Start Date End Date Erick Lemus MD [address] [place] [address] PCP - General Family Medicine 03/15/19 Podlogar, Aissatou, AUTOMOTIVE GLASS MECHANIC.ENGRAVER SET UP OPERATOR [address] [place] [address] [facility] Train Station Server Relationship Specialty Start Date End Date Erick Lemus MD [address] [place] [address] PCP - General Family Medicine 03/15/19 Podlogar, Aissatou, AUTOMOTIVE GLASS MECHANIC.ENGRAVER SET UP OPERATOR [address] [place] [address] [facility] 07/13/24 Train Station Server Relationship Specialty Start Date End Date Erick Lemus MD [address] [place] [address] PCP - General Family Medicine 03/15/19 Podlogar, CHRISTOPH Reyez.ENGRAVER SET UP OPERATOR [address] [facility] [place] [address] [facility] 07/13/24 Train Station Server Relationship Specialty Start Date End Date Erick Lemus MD [address] [facility] [place] [address] PCP - General Family Medicine 03/15/19 Podlogar, CHRISTOPH Reyez.ENGRAVER SET UP OPERATOR [address] [place] [address] [facility] 07/13/24 Jael Woodward APRN.ENGRAVER SET UP OPERATOR [address] [place] [address] [facility] 10/18/24 Train Station Server Relationship Specialty Start Date End Date Erick Lemus MD [address] [place] [address] PCP - General Family Medicine 03/15/19 PodlogarAissatou APRN.ENGRAVER SET UP OPERATOR [address] [facility] [place] [address] [facility] Medicine 07/13/24 Jael Woodward APRN.ENGRAVER SET UP OPERATOR [address] [place] [address] [facility] 10/18/24 Train Station Server Relationship Specialty Start Date End Date Erick Lemus MD [address] [facility] [place] [address] PCP - General Family Medicine 03/15/19 Podlogar, Aissatou, AUTOMOTIVE GLASS MECHANIC.ENGRAVER SET UP OPERATOR [address] [facility] [place] [address] [facility] 07/13/24 Jael Woodward APRN.ENGRAVER SET UP OPERATOR [address] [place] [address] [facility] 10/28/24 Train Station Server Relationship Specialty Start Date End Date Erick Lemus MD [address] [place] [address] PCP - General Family Medicine 03/15/19 Podlogar, Aissatou, AUTOMOTIVE GLASS MECHANIC.ENGRAVER SET UP OPERATOR [address] [place] [address] [facility] 07/13/24 Jael Woodward AUTOMOTIVE GLASS MECHANIC.ENGRAVER SET UP OPERATOR [address] [place] [address] [facility] 10/28/24 Train Station Server Relationship Specialty Start Date End Date Erick Lemus MD [address] [place] [address] PCP - General Family Medicine 03/15/19 Podlogar, Aissatou, AUTOMOTIVE GLASS MECHANIC.ENGRAVER SET UP OPERATOR [address] [facility] [place] [address] [facility] 07/13/24 Jael Woodward AUTOMOTIVE GLASS MECHANIC.ENGRAVER SET UP OPERATOR [address] [place] [address] [facility] 10/28/24 Train Station Server Relationship Specialty Start Date End Date Erick Lemus MD [address] [facility] [place] [address] PCP - General Family Medicine 03/15/19 PodlogarAissatou APRN.ENGRAVER SET UP OPERATOR [address] [place] [address] [facility] 07/13/24 Jael Woodward APRN.ENGRAVER SET UP OPERATOR [address] [place] [address] [facility] 10/28/24 Train Station Server Relationship Specialty Start Date End Date Erick Lemus MD [address] [place] [address] PCP - General Family Medicine 03/15/19 PodlogarAissatou APRN.ENGRAVER SET UP OPERATOR [address] [place] [address] [facility] 07/13/24 Jael Woodward APRN.ENGRAVER SET UP OPERATOR [address] [place] [address] [facility] 10/28/24 Train Station Server Relationship Specialty Start Date End Date Erick Lemus MD [address] [place] [address] PCP - General Family Medicine 03/15/19 PodlogarAissatou APRN.ENGRAVER SET UP OPERATOR [address] [place] [address] [facility] 07/13/24 Jael Woodward APRN.ENGRAVER SET UP OPERATOR [address] [place], [place] [id number] [facility] Train Station Server Relationship Specialty Start Date End Date Erick Lemus MD [address] [facility] [place] [address] PCP - General Family Medicine 03/15/19 Podlogar, VIRGILIO ReyezN.ENGRAVER SET UP OPERATOR [address] [place] [address] [facility] 07/13/24 Jael Woodward APRN.ENGRAVER SET UP OPERATOR [address] [place] [address] [facility] 10/28/24 Train Station Server Relationship Specialty Start Date End Date Erick Lemus MD [address] [place] [address] PCP - General Family Medicine 03/15/19 Podlogar, Aissatou AUTOMOTIVE GLASS MECHANIC.ENGRAVER SET UP OPERATOR [address] [place] [address] [facility] Medicine 07/13/24 Jael Woodward AUTOMOTIVE GLASS MECHANIC.ENGRAVER SET UP OPERATOR [address] [place] [address] [facility] 10/28/24 Train Station Server Relationship Specialty Start Date End Date Erick Lemus MD [address] [place], [place] [address] [phone] PCP - General Family Medicine 03/15/19 Podlogar, Aissatou, AUTOMOTIVE GLASS MECHANIC.ENGRAVER SET UP OPERATOR [address] [place] [address] [facility] 07/13/24 Jael Woodward AUTOMOTIVE GLASS MECHANIC.ENGRAVER SET UP OPERATOR [address] [place] [address] [facility] 10/28/24 Train Station Server Relationship Specialty Start Date End Date Erick Lemus MD [address] [place] [address] PCP - General Family Medicine 03/15/19 Podlogar, Aissatou AUTOMOTIVE GLASS MECHANIC.ENGRAVER SET UP OPERATOR [address] [place] [address] [facility] 07/13/24 Jael Woodward AUTOMOTIVE GLASS MECHANIC.ENGRAVER SET UP OPERATOR [address] [place] [address] [facility] 10/28/24 Train Station Server Relationship Specialty Start Date End Date Erick Lemus MD [address] [place] [address] PCP - General Family Medicine 03/15/19 Podlogar, Aissatou AUTOMOTIVE GLASS MECHANIC.ENGRAVER SET UP OPERATOR [address] [place] [address] [facility] Medicine 07/13/24 Jael Woodward AUTOMOTIVE GLASS MECHANIC.ENGRAVER SET UP OPERATOR [address] [place] [address] [facility] 10/28/24 Train Station Server Relationship Specialty Start Date End Date Erick Lemus MD [address] [place] [address] PCP - General Family Medicine 03/15/19 Podlogar, Aissatou, AUTOMOTIVE GLASS MECHANIC.ENGRAVER SET UP OPERATOR [address] [facility] [place] [address] [facility] 07/13/24 Jael Woodward AUTOMOTIVE GLASS MECHANIC.ENGRAVER SET UP OPERATOR [address] [place] [address] [facility] 10/28/24 Train Station Server Relationship Specialty Start Date End Date Erick Lemus MD [address] [facility] [place] [address] PCP - General Family Medicine 03/15/19 Podlogar, Aissatou, AUTOMOTIVE GLASS MECHANIC.ENGRAVER SET UP OPERATOR [address] [place] [address] [facility] 07/13/24 Jael Woodward, AUTOMOTIVE GLASS MECHANIC.ENGRAVER SET UP OPERATOR [address] [place] [address] [facility] 10/28/24 Train Station Server Relationship Specialty Start Date End Date Erick Lemus MD [address] [facility] [place] [address] PCP - General Family Medicine 03/15/19 Podlogar, Aissatou, AUTOMOTIVE GLASS MECHANIC.ENGRAVER SET UP OPERATOR [address] [facility] [place] [address] [facility] 07/13/24 Train Station Server Relationship Specialty Start Date End Date Erick Lemus MD [address] [facility] [place] [address] PCP - General Family Medicine 03/15/19 Podlogar, Aissatou, AUTOMOTIVE GLASS MECHANIC.ENGRAVER SET UP OPERATOR [address] [place], [place] [address] [facility]24 Team Status: Active Member [...] January 27, 2025 End: January 27, 2025 Train Station Server Relationship Specialty Start Date End Date Erick Lemus MD [facility] [place], [place] [address] PCP - General Family Medicine 03/15/19 PodlogarAissatou APRN.ENGRAVER SET UP OPERATOR [address] [place] [address] [facility] Medicine 07/13/24 Jael Woodward APRN.ENGRAVER SET UP OPERATOR [address] [place] [address] [facility] 10/28/24 12/22/24 Jael Woodward APRN.ENGRAVER SET UP OPERATOR [facility] [place], [place] [address] [facility] 01/16/25 Train Station Server Relationship Specialty Start Date End Date Erick Lemus MD [address] [place], [place] [address] PCP - General Family Medicine 03/15/19 PodlogarAissatou APRN.ENGRAVER SET UP OPERATOR [address] [place] [address] [facility] 07/13/24 Jael Woodward APRN.ENGRAVER SET UP OPERATOR [address] [place] [address] [facility] 01/16/25 Train Station Server Relationship Specialty Start Date End Date Erick Lemus MD [address] [place] [address] PCP - General Family Medicine 03/15/19 PodlogarAissatou APRN.ENGRAVER SET UP OPERATOR [address] [place] [address] [facility] 07/13/24 Jael Woodward APRN.ENGRAVER SET UP OPERATOR [address] [place] [address] Cafeteria Aide Family [facility] 01/16/25 Train Station Server Relationship Specialty Start Date End Date Erick Lemus MD [address] [place] [address] PCP - General Family Medicine 03/15/19 PodlogarAissatou APRN.ENGRAVER SET UP OPERATOR [address] [place] [address] [facility] 07/13/24 Jael Woodward APRN.ENGRAVER SET UP OPERATOR [address] [place] [address] [facility] 10/28/24 12/22/24 Jael Woodward APRN.ENGRAVER SET UP OPERATOR [address] [place] [address] [facility] 01/16/25 Reason for Visit (unrecogniz ed section and content) Reason Comments CANCELLED ORDER Reason Comments Physical Specialty Diagnoses / Procedures Referred By Samara t Referred To Contact [facility]MENT Diagnoses All Medically Necessary consult/treatments - 100% FAS Procedures All Medically Necessary consult/treatments - 100% FAS Self [facility] [address] Referral ID Status Reason Start Date Expiration Date Visits Requested Visits Authorized [id number] Authorized Patient Cleared - Qualified 100% FAS [...] Diagnoses office visit Procedures office visit Self [facility] [address] Referral ID Status Reason Start Date Expiration Date Visits Requested Visits Authorized [id number] Authorized Patient Cleared - Qualified 100% FAS 11/07/2023 02/05/2024 99 99 Reason Comments Suture Removal Suture removal left knee x 5 placed in ER [facility] Reason Comments Hospital F/U [facility] 04/18 for abdomin al pain Reason Onset Date Comments Refill Request 06/28/2024 Reason Comments Adrenal Specialty Diagnoses / Procedures Referred By Contact Referred To Contact Endocrinology / ENDOCRINOLOGY Diagnoses 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]; Hospital discharge follow-up [Z09]; Adrenal mass 1 cm to 4 cm in diameter (HCC) [E27.8] Procedures [facility] PodlogarAissatou, AUTOMOTIVE GLASS MECHANIC.ENGRAVER SET UP OPERATOR [address] [place] [address] Nina Lerner MD [address] [place] [address] Referral ID Status Reason Start Date Expiration Date Visits Requested Visits Authorized [id number] Authorized Patient Cleared - Qualified 100% FAS [...] Nina Lerner MD [address] [place] [address] Phone: tel: fax: [place] [address] Referral ID Status Reason Start Date Expiration Date V isits Requested Visits Authorized [id number] Closed Auto-Generate d Referral 06/28/2024 07/28/2025 1 1 Reason Onset Date Comments Results 10/17/2024 Reason Comments Consult FACE SHEET Reason Comments Adrenal Ct results Specialty Diagnoses / Procedures Referred By Contact Referred To Contact Endocrinology / ENDOCRINOLOGY Diagnoses 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]; Hospital discharge follow-up [Z09]; Adrenal mass 1 cm to 4 cm in diameter (HCC) [E27.8] Procedures [facility] PodlogarAissatou APRN.ENGRAVER SET UP OPERATOR [address] [place] [address] Phone: tel: fax: Nina Lerner MD [address] [place] [address] Phone: tel: fax: Referral ID Status Reason Start Date Expiration Date V isits Requested Visits Authorized [id number] Closed Patient Cleared - Qualified 100% FAS 06/28/2024 09/26/2024 99 99 Reason Comments 11/20/20240664-[id number] laprascopic adrenalec katy Right laprascopic adrenalectomy Reason Comments Consult Specialty Diagnoses / Procedures Referred By Contac t Referred To Contact Diagnoses Adrenal mass (HCC) Procedures REFER TO [facility] PREOPERATIVE OPTIMIZATION OFFICE/OUTPATIENT [facility] 60 MINUTES John Bradley MD [address] [phone] Phone: tel: fax: Referral ID Status Reason Start Date Expiration Date V isits Requested Visits Authorized [id number] Closed PCP Requested Referral 11/05/2024 11/05/2025 1 1 Reason Comments Spirometry Specialty Diagnoses / Procedures Referred By Contac t Referred To Contact [facility] Diagnoses Pre-operative examination Procedures SPIROMETRY WITH DILATOR IF OBSTRUCTED BRNCDILAT RSPSE SPMTRY PRE&POST-BRNCDILAT ADMN Gurvinder Garcia, AUTOMOTIVE GLASS MECHANIC.ENGRAVER SET UP OPERATOR [address] [place] [address] Phone: tel: fax: [facility] [address] [place] [address] Referral ID Status Reason Start Date Expiration Date V isits Requested Visits Authorized [id number] Closed Auto-Generate d Referral 11/08/2024 12/08/2025 1 [...] EACH 30 MINUTES John Bradley MD [address] [phone] Phone: tel: fax: [facility] [address] [place] [address] Referral ID Status Reason Start Date Expiration Date Visits Requested Visits Authorized [id number] Pending Review PCP Requested Referral Auto-Generate d Referral 11/28/2024 11/28/2025 1 1 Reason Comments Adrenal INFORMATION SOURCE (unrecogn ized section and content) DATE CREATED AUTHOR 11/29/2024 Pauline Patel al DATE CREATED AUTHOR AUTHOR'S ORGANIZ ATION 01/31/2025 [facility] DATE CREATED AUTHOR AUTHOR'S ORGANIZ ATION 02/15/2025 [facility] DATE CREATED AUTHOR AUTHOR'S ORGANIZ ATION 02/16/2025 [facility] Goals (unrecognized section and content) Goals [...] BE BASED ON THE PRIMARY CLINICAL RECORDS. [facility] [employer] [facility]. provides no warranty or guarantee of the accuracy or completeness of information in this document.
--- NOTE | 2025-02-19 03:55 | RAD_ITS ---
PROCEDURE: CHEST PA AND LATERAL 02/19/2025 REASON FOR EXAM: SEIZURE TECHNIQUE: CHEST PA AND LATERAL COMPARISON: CT 04/16/2024 FINDINGS: Normal heart size. Emphysema and smoking-related interstitial lung disease. Well inflated lungs. No consolidation, effusion, or pneumothorax. RAD/Chest PA and Lateral IMPRESSION: No acute chest findings Reading Location: [facility]
--- NOTE | 2025-02-19 03:55 | RAD_ITS ---
PROCEDURE: CHEST PA AND LATERAL 02/19/2025 REASON FOR EXAM: SEIZURE TECHNIQUE: CHEST PA AND LATERAL COMPARISON: CT 04/16/2024 FINDINGS: Normal heart size. Emphysema and smoking-related interstitial lung disease. Well inflated lungs. No consolidation, effusion, or pneumothorax. RAD/Chest PA and Lateral IMPRESSION: No acute chest findings Reading Location: [facility]-
[2025-02-19 04:30] VITALS: BP 129/65; PULSE 74; RESP 18; TEMP 37.1; O2SAT 95
[2025-02-19 04:30] LABS: Anion Gap 16 (5-15); BUN 31 mg/dL (4-19); BUN/Creat Ratio 44.1 RATIO (10-20); Calcium,Total 9.5 mg/dL (7.6-11.0); Carbon Dioxide 20.7 mmol/L (21.0-32.0); Chloride 96 mmol/L (98-108); Estimated Creatinine Clearance 91.80 ml/min (50-250); Glucose 156 mg/dL (70-99); Magnesium 1.8 mg/dL (1.5-2.2); Potassium 3.3 mmol/L (3.3-5.1)
[2025-02-19 04:33] LABS: Mucous, Urine 0 SEEN /hpf (<or=2+); Red Blood Cells-Urine 0 SEEN /hpf (0-5)
[2025-02-19 04:48] LABS: Color, Urine Yellow (Yellow); Glucose, Dipstick Normal (Normal); Ketone-Dipstick Negative (Negative); Leukocyte Esterase-Dipstick 100 /ul (Negative); Nitrite-Dipstick Negative (Negative); Occult Blood-Urine 10 /ul (Negative); Protein-Dipstick 30 mg/dl (Negative); Specific Gravity, Urine 1.025 (1.002-1.030); Urine Bilirubin Dipstick Negative (Negative)
[2025-02-19 04:57] LABS: Squamous Epithelial Cells - UA 0-5 SEEN /hpf (5-10)
[2025-02-19 05:00] VITALS: BP 103/54; PULSE 66; RESP 18; TEMP 37.1; O2SAT 97
--- NOTE | 2025-02-19 05:10 | EDS_ITS ---
HPI History of Present Illness Chief Complaint: Alt LOC Informant: patient, spouse/S.O. and family Narrative Narrative: Patient is a 59-year-old female with past medical history of hypertension and hyperlipidemia. She was recently evaluated for adrenal mass and had a surgery to remove it and they have been monitoring her cortisol levels. Patient was recently cleared to go back to work and went to back to work yesterday for the first time. She states it was a rather stressful day secondary to this but she made it through. She states she felt very tired after the workday and therefore went to bed. states that he awoke to her shaking and she was unresponsive. He called 911 secondary to this. The patient's reported shaking spontaneously stopped but then she remained altered and therefore comes to the ER for evaluation states has been no new medications started or stopped and he denies any history of benzodiazepine or alcohol abuse [facility] Medical History (Updated 02/19/25 @ 05:[address] Oral Bliss, DO) Marijuana smoker Physical exam, pre-employment Bleeding tendency Post-menopausal Back pain due to injury High cholesterol Smoker Tobacco abuse Obesity (BMI 30.0-34.9) Adrenal mass Duodenal mass Depression Hypertension Home Medications ?Medication ?Instructions ?Recorded ?Last Taken ?Type atorvastatin 80 mg tablet 80 mg PO QHS cholesterol 05/30 Unknown History bupropion HCl 150 mg tablet,12 hr 150 mg PO BID Unknown History sustained-release lisinopril 10 1 tab PO DAILY 04/16/24 Unkn own History mg-hydrochlorothiazide 12.5 mg tablet sertraline 100 mg tablet 100 mg PO DAILY 04/16/24 Unk nown History pantoprazole 40 mg tablet,delayed 40 mg PO BID 90 days #180 tabs 04/18/24 Unknown Rx release sucralfate 1 gram tablet 1 g PO 1HR_ACHS 14 days #42 tabs 04/18/24 Unknown Rx cephalexin 500 mg capsule 500 mg PO TID 7 days #21 cap s 02/19/25 Unknown Rx Allergy/AdvReac Type Severity Reaction Status Date / Time fluoxetine (From Prozac) Allergy Abd Verified 02/19/25 03:12 cramps/diarrhea Surgical History S/P tubal ligation Social History Smoking Status: Current every day smoker tobacco type: cigarettes ROS ROS ED Constitutional Constitutional ED: Denies chills or fever(s) Eyes Eyes: Denies change in vision ENT ENT ED: Denies sore throat Cardiovascular Cardiovascular: Denies chest pain Respiratory/Chest Respiratory/Chest: Denies cough or dyspnea Gastrointestinal Gastrointestinal: Denies abdominal pain, diarrhea, nausea or vomiting Genitourinary Genitourinary ED: Denies dysuria Musculoskeletal Musculoskeletal: Denies myalgias Integumentary Denies rash Neurologic Neurologic: Denies headache(s), paresthesias or weakness Hematologic/Lymphatic Hematologic/Lymphatic: Denies easy bleeding or easy bruising EXAM Physical Exam Const Vital Signs: 02/19/25 03:13 02/19/25 03:18 02/19/25 04:30 Temperature 98.6 F 98.6 F 98.7 F Temperature Source Oral Oral Oral Pulse Rate 90 87 74 Respiratory Rate 18 18 18 Blood Pressure 183/123 H 183/123 H 129/65 H Blood Pressure Mean 143 143 86 Pulse Ox 93 97 95 Oxygen Delivery Method Room Air Room Air Room Air Positive well nourished and well developed General Appearance ED: well developed; Negative for pallor HEENT HEENT Narrative: Normocephalic atraumatic No tongue or lip swelling no oral lesions no airway edema or compromise; no secondary findings to suggest infection No tongue or cheek biting noted but the patient is edentulous Eyes PERRL and EOMs intact bilaterally General Eye ED: Negative for scleral icterus Neck supple Neck Narrative: No nuchal rigidity or meningeal signs Resp normal respiratory effort and clear to auscultation bilaterally Cardio regular rate and regular rhythm Rate: other Other Details: Radial carotid pulses are equal and symmetric GI normal to inspection, nondistended, normoactive bowel sounds, non-tender, non- distended and no masses GI Narrative: No voluntary guarding no rigidity or pulsatile mass Auscultation: normoactive bowel sounds Palpation: soft Extremity normal to inspection Neuro oriented x3, CN's II-XII intact bilaterally and no sensory deficits noted Neuro Narrative: GCS of 15 Cranial nerves II through XII are grossly intact without focal neurologic deficit No pronator drift no dysmetria no truncal ataxia NIH stroke scale score 0 Sensorium / Orientation: alert Motor Exam: strength 5/5 throughout Psych mental status grossly normal Skin no rashes or lesions noted General Skin Exam: Negative for jaundice or pallor MDM MDM MDM Narrative Medical decision making narrative: Patient arrived to the ER awake and alert. Report of shaking with altered mental status correlates with seizure activity. The patient has no known history of seizures and reportedly has been no medication changes to suggest a cause and she does not have a history of benzodiazepine or alcohol abuse to suggest the cause either. She did have a recent adrenal gland removed but this has been approximately 4 weeks out and she has been medically cleared by endocrinology to return to work indicating that she is well-healed from the procedure. In order to check for potential cause of seizures such as brain mass or bleed or hyponatremia I did elect to perform basic laboratory studies with head CT. Head CT revealed no acute findings and labs revealed no obvious cause for seizure either. The patient did have UTI changes on her urine sample but she denies any dysuria or frequency. Still has this is a potential trigger for a breakthrough seizure I did elect to start her on Keflex and send urine for culture. In the ER the patient's vitals improved without treatment she remained awake and alert with normal neurologic exam and had no repeat seizure activity. She was able to ambulate with a steady gait as well. Therefore as the patient had a single seizure does not have an obvious cause for it such as bleed or mass and is now alert and oriented x 4 there is no need for inpatient evaluation and she can had a seizure activity worked up as an outpatient. History & Record Review Discussion w/independent historian: Patient, Family and Significant other Lab Data Attestation: I reviewed the patient's lab results. Labs: Laboratory Results - last 24 hr 02/19/25 02/19/25 03:30 04:29 WBC 7.4 RBC 4.74 Hgb 14.6 Hct 41.6 MCV 87.8 MCH 30.8 MCHC 35.1 RDW Std Deviation 42.2 RDW Coeff of [place] 13.2 Plt Count 269 MPV 9.9 Immature Gran % (Auto) 0.300 Neut % (Auto) 40.5 L Lymph % (Auto) 50.3 H Winkler % (Auto) 6.7 Eos % (Auto) 1.4 Baso % (Auto) 0.8 Absolute Neuts (auto) 3.0 Absolute Lymphs (auto) 3.70 Nucleated RBC % 0 Sodium 133 Potassium 3.3 Chloride 96 L Carbon Dioxide 20.7 L Anion Gap 16 H BUN 31 H Creatinine 0.71 Estim Creat Clear Calc 91.80 Est GFR (MDRD) Non-Af 98 BUN/Creatinine Ratio 44.1 H Glucose 156 H Lactic Acid 2.0 Calcium 9.5 Magnesium 1.8 Urine Color Yellow Urine Clarity Sl. Cloudy Urine pH 5.0 Ur Specific [place] 1.025 Urine Protein 30 H Urine Glucose (UA) Normal Urine Ketones Negative Urine Occult Blood 10 H Urine Nitrite Negative Urine Bilirubin Negative Urine Urobilinogen Normal Ur Leukocyte Esterase 100 H Urine RBC 0 SEEN Urine WBC 5-10 SEEN Ur Squamous Epith Cells 0-5 SEEN Urine Bacteria 2+ Urine Mucus 0 SEEN Radiography Diagnostic Testing: Clinical Impression(s) from Imaging Studies Brain CT 02/19/25 03:29 IMPRESSION: No acute intracranial findings Reading Location: [facility] Chest X-Ray 02/19/25 03:55 IMPRESSION: No acute chest findings Reading Location: [facility] Chest x-ray as interpreted by emergency medicine physician reveals no acute infiltrate pneumothorax or pleural effusion Discharge Plan Triage Chief Complaint: Alt LOC ED Provider: Oral Bliss Dx/Rx/DC Orders Clinical Impression: New onset seizure, UTI (urinary tract infection), Hypertension Instructions: Urinary Tract Infections in Women, ED Seizure New [facility] Adult Prescriptions: New cephalexin 500 mg capsule 500 mg PO TID 7 Days Qty: 21 0RF No Action bupropion HCl 150 mg tablet sustained-release 12 hr 150 mg PO BID atorvastatin 80 mg tablet 80 mg PO QHS sertraline 100 mg tablet 100 mg PO DAILY lisinopril-hydrochlorothiazide 10-12.5 mg tablet 1 tab PO DAILY sucralfate 1 gram Tablet 1 g PO 1HR_ACHS 14 Days Qty: 42 0RF pantoprazole 40 mg Tablet,Delayed Release (Dr/Ec) 40 mg PO BID 90 Days Qty: 180 0RF Stand Alone Forms: ED Work / School Excuse Primary Care Provider: Rico Lemus Referrals: Rico Lemus MD [Primary Care Provider] - Reddy Stanford MD [Non-Staff -Ordering Privileges] - (New onset seizure) Activity Restrictions/Additional Instructions: Your history and exam is consistent with a seizure. Secondary to this you should not drive or operate heavy machinery until we can delineate the cause of your seizure activity. He will need to follow-up with neurology to discuss further testing such as strobe light testing EEG and/or MRI. You also have a urinary tract infection and therefore take antibiotic as directed but this should not have been enough to stimulate a breakthrough seizure. If you have any further concerns or worsening of symptoms please return to the ER for repeat evaluation Print Language: Estonian Disposition Disposition: Home, Self Care
[2025-02-19 07:35] LABS: Reflex Lactate? Y
== END 2025-02-19 05:25 | disposition home or self-care (01) ==
PROVIDERS: Emergency Provider Emergency Medicine; PCP Family Medicine; Visit Provider Emergency Medicine
DX: R56.9 Unspecified convulsions (principal); N39.0 Urinary tract infection, site not specified; I10 Essential (primary) hypertension; E78.00 Pure hypercholesterolemia, unspecified; F17.210 Nicotine dependence, cigarettes, uncomplicated; Z79.899 Other long term (current) drug therapy
CPT/HCPCS: 70450; 71046; 80048; 81001; 83605; 83735; 85025; 87077; 87086; 87088; 87186; 96360; 99285; A4216

== ENCOUNTER 2025-03-26 07:24 | Emergency (ER) | payer BC, SELFPAY ==
[2025-03-26 07:25] VITALS: BP 156/102; PULSE 57; RESP 20; TEMP 35.6; O2SAT 96; BMI 35.9
--- NOTE | 2025-03-26 07:56 | EDS_ITS ---
HPI History of Present Illness HPI Narrative: Patient is a 59-year-old female presenting to the emergency department after a fall with left shoulder pain. Patient has a past medical history as below. Patient states that she was on the stairs of her home in the dark attempting to clean up her dog's vomit when she thought there was a step below her when she stepped down causing her to fall onto her left side. She states she landed on her left shoulder. She only fell down 1-2 steps. She denies hitting her head any loss of consciousness or any use of oral anticoagulation. Denies any neck or back pain. Reports pain to her left shoulder and her right wrist. Denies any hip or leg pain. Did not take anything for pain prior to arrival. She states it was missing a step that caused her to fall, she denies any chest pain, shortness of breath, palpitations, lightheadedness or dizziness. Chief Complaint: Upper Extremity Injury [facility] Medical History Marijuana smoker Physical exam, pre-employment Bleeding tendency Post-menopausal Back pain due to injury High cholesterol Smoker Tobacco abuse Obesity (BMI 30.0-34.9) Adrenal mass Duodenal mass Depression Hypertension Home Medications ?Medication ?Instructions ?Recorded ?Last Taken ?Type atorvastatin 80 mg tablet 80 mg PO QHS cholesterol 05/30 Unknown History bupropion HCl 150 mg tablet,12 hr 150 mg PO BID Unknown History sustained-release lisinopril 10 1 tab PO DAILY 04/16/24 Unkn own History mg-hydrochlorothiazide 12.5 mg tablet sertraline 100 mg tablet 100 mg PO DAILY 04/16/24 Unk nown History pantoprazole 40 mg tablet,delayed 40 mg PO BID 90 days #180 tabs 04/18/24 Unknown Rx release sucralfate 1 gram tablet 1 g PO 1HR_ACHS 14 days #42 tabs 04/18/24 Unknown Rx cephalexin 500 mg capsule 500 mg PO TID 7 days #21 cap s 02/19/25 Unknown Rx oxycodone-acetaminophen 5 mg-325 1 tab PO Q8H PRN pain 3 days #12 03/26/25 Unknown Rx mg tablet (Percocet) tabs Allergy/AdvReac Type Severity Reaction Status Date / Time fluoxetine (From Prozac) Allergy Abd Verified 03/26/25 07:26 cramps/diarrhea Surgical History S/P tubal ligation Social History Smoking Status: Current every day smoker tobacco type: cigarettes ROS ROS ED ROS Narrative See HPI EXAM Physical Exam Narrative Exam Narrative: Vital signs: Reviewed General: Alert and orientedx3. No acute distress HEENT: Head is normocephalic and atraumatic, sinuses nontender, pupils equal round and reactive. Nares are patent. Oropharynx and throat exams normal. No cephalhematoma or lacerations to the head or face. Neck: Supple without lymphadenopathy nontender. No midline cervical spinal tenderness palpation. No step-offs or deformities. Cardiovascular: Regular rate and rhythm, no murmurs. No rubs or gallops. Normal S1 and S2 Respiratory: Clear to auscultation bilaterally. No wheezes, rales, rhonchi Chest: Chest wall is atraumatic and nontender to palpation with no crepitus. No bruising. Abdominal: Soft and nontender. Normal bowel sounds. No guarding or rebound. Nonsurgical abdomen Extremities: No tenderness. No bruising. Normal range of motion. Normal sensation. No midline thoracic or lumbar spinal tenderness to palpation. No step-offs or deformities. Hips are stable and nontender to palpation. The left shoulder and proximal humerus are tender to palpation. No tenderness to palpation of the left clavicle, mid or distal humerus, elbow, forearm, wrist or hand. There is some very mild tenderness to palpation of the right wrist with no deformities. No tenderness to palpation of the right clavicle, shoulder, humerus, elbow, forearm or hand. Radial pulses are intact bilaterally. Sensation intact in all extremities. Specifically axillary nerve is intact in the left upper extremity. Patient unable to range her left shoulder due to pain, otherwise range of motion is intact in all extremities. Bilateral lower extremities are atraumatic and nontender to palpation with normal active range of motion. Skin: No rash or redness. Neurological: Cranial nerves II through XII are grossly intact. Normal strength and sensation. Normal cerebellar function The rest of the physical exam is unremarkable Const Vital Signs: 03/26/25 07:25 Temperature 96.0 F L Temperature Source Temporal Pulse Rate 57 L Respiratory Rate 20 H Blood Pressure 156/102 H Blood Pressure Mean 120 Pulse Ox 96 Oxygen Delivery Method Room Air MDM MDM MDM Narrative Medical decision making narrative: Patient is a 59-year-old female presenting emergency department after a mechanical fall. Patient was seen and examined. Vitals are stable. Patient resting bed comfortably no acute distress. Patient given Toradol for pain. She did not hit her head, no use of oral anticoagulation and no loss of consciousness. She has no neck or back pain. X- rays of the left shoulder and right wrist were obtained. She is neurovascularly intact. X-ray of the left shoulder was evaluated by myself. There appears to be a fracture through the neck with no displacement. Radiology read shows a transverse fracture through the left humeral head-neck junction with a slight impaction. Right wrist x-ray with mild soft tissue swelling no evidence of fracture or dislocation.Sling and swath ordered for her proximal humerus fracture. Patient and updated on the findings. Instructed to follow-up with orthopedics in 1 week. Given orthopedics follow-up information. Instructed take Motrin at home for pain control and if she needs additional analgesia, Percocet was sent. Instructed not to take Tylenol with this. Astrid butttika discharged from the Emergency Department. I do not feel that the patient's evaluation reveals any acute reason for admission at this time. I instructed them to either follow-up with their primary care physician or promptly return to the Emergency Department for reevaluation should symptoms worsen or new symptoms develop. I explained what symptoms would indicate the need to return to the emergency department. Shared decision making was used. The patient voiced understanding of the treatment plan and is agreeable with it. Clinical impression: Left proximal humerus fracture right wrist sprain mechanical fall History & Record Review Discussion w/independent historian: Patient and Significant other Radiography X-Ray: Read by ED Physician and Fracture (left proximal humerus fracture, no displacement) Discharge Plan Triage Chief Complaint: Upper Extremity Injury ED Provider: Natalie Gray Dx/Rx/DC Orders Clinical Impression: Fx humeral neck, Right wrist sprain Instructions: ED Fracture, Upper Extremity, ED Wrist Sprain Prescriptions: New oxycodone-acetaminophen [Percocet] 5-325 mg tablet 1 tab PO Q8H PRN (Reason: pain) 3 Days Qty: 12 0RF No Action bupropion HCl 150 mg tablet sustained-release 12 hr 150 mg PO BID atorvastatin 80 mg tablet 80 mg PO QHS sertraline 100 mg tablet 100 mg PO DAILY lisinopril-hydrochlorothiazide 10-12.5 mg tablet 1 tab PO DAILY sucralfate 1 gram Tablet 1 g PO 1HR_ACHS 14 Days Qty: 42 0RF pantoprazole 40 mg Tablet,Delayed Release (Dr/Ec) 40 mg PO BID 90 Days Qty: 180 0RF cephalexin 500 mg capsule 500 mg PO TID 7 Days Qty: 21 0RF Primary Care Provider: Rico Lemus Referrals: Rico Lemus MD [Primary Care Provider] - Stanley Wilson MD [Med Staff - Active Staff] - 2 Days Activity Restrictions/Additional Instructions: Please wear the sling at all times for comfort. Take motrin for pain control at home, if you need something more you can take the percocet. Your evaluation in the Emergency Department did not reveal any acute reason for admission. However, I want to emphasize that you may be early in the course of a disease process or illness even if it is not present. For this reason you should follow-up within 24 hours for reevaluation with either your primary care physician or if necessary back here in the Emergency Department. You should return to the Emergency Department immediately if your symptoms worsen or new symptoms develop. Print Language: Arabic Disposition Disposition: Home, Self Care
--- NOTE | 2025-03-26 08:00 | RAD_ITS ---
PROCEDURE: HUMERUS MIN 2 VIEWS 03/26/2025 REASON FOR EXAM: PAIN TECHNIQUE: Left humerus two views COMPARISON: None FINDINGS: There is a transverse fracture through the left humeral head neck junction with a slight impaction. There is no dislocation. The AC joint is aligned. Osteopenia is noted. There is no visible atherosclerosis. RAD/Humerus min 2 Views IMPRESSION: There is a transverse fracture through the left humeral head neck junction with a slight impaction. Reading Location: [facility]
--- NOTE | 2025-03-26 08:00 | RAD_ITS ---
PROCEDURE: WRIST MIN 3 VIEWS 03/26/2025 REASON FOR EXAM: PAIN FALL TECHNIQUE: WRIST MIN 3 VIEWS Laterality: Right wrist COMPARISON: None FINDINGS: Bones: No fracture is seen. Joints: There is good alignment. Soft tissues: Mild soft tissue swelling. Other: RAD/Wrist min 3 Views IMPRESSION: Mild soft tissue swelling. No evidence of fracture or dislocation. Reading Location: [facility]
--- NOTE | 2025-03-26 08:00 | RAD_ITS ---
PROCEDURE: SHOULDER MIN 2 VIEWS 03/26/2025 REASON FOR EXAM: PAIN, FALL TECHNIQUE: Left shoulder four views COMPARISON: None FINDINGS: There is a transverse fracture through the left humeral head neck junction with a slight impaction. The AC joint is aligned. There is no dislocation. Osteopenia is noted. Atherosclerotic aortic calcifications are visible. RAD/Shoulder min 2 Views IMPRESSION: There is a transverse fracture through the left humeral head neck junction with a slight impaction. Critical results were discussed with Dr. Gray by Dr. Andre at the time of dictation. Reading Location: [facility]
--- NOTE | 2025-03-26 08:02 | ED.RN ---
pt states she was on wooden steps and thought she was on the last step. she lost her footing and fell. c/o pain in the left shoulder, left upper arm, and right wrist. pt has abrasion on the left knee and left elbow. denies hitting her head and neg thinners
[2025-03-26] MEDS: Ketorolac 30 MG/ML Syringe IM (08:40)
--- NOTE | 2025-03-26 09:13 | ED.RN ---
PT DID NOT WANT THE VIOLET WRAP AROUND HER. THIS NURSE EDUCATED PT ON THE PURPOSE OF THE VIOLET WRAP. THE SLING KEEP THE PT FROM MOVING HER ARM UP AND DOWN AND THE VIOLET WRAP AROUND THE BODY KEEPS THE PT FROM ABDUCTING THE ARM. PT GIVEN POST OP PAPERWORK. DR WARNER ADVISED OF PTS DECISION
[2025-03-26 09:15] VITALS: BP 148/93; PULSE 84; RESP 16; TEMP 36.3; O2SAT 97
== END 2025-03-26 09:17 | disposition home or self-care (01) ==
PROVIDERS: Emergency Provider Student in an Organized Health Care Education/Training Program; PCP Family Medicine; Visit Provider Student in an Organized Health Care Education/Training Program
DX: S42.212A Unspecified displaced fracture of surgical neck of left humerus, initial encounter for closed fracture (principal); S63.91XA Sprain of unspecified part of right wrist and hand, initial encounter; W10.9XXA Fall (on) (from) unspecified stairs and steps, initial encounter; I10 Essential (primary) hypertension; E78.00 Pure hypercholesterolemia, unspecified; F17.210 Nicotine dependence, cigarettes, uncomplicated; Z79.899 Other long term (current) drug therapy
CPT/HCPCS: 73030; 73060; 73110; 96372; 99282